=== PATIENT | male | born 1950 | race Caucasian/White ===

== ENCOUNTER 2018-11-25 10:44 | Outpatient (CLI) | payer MEDICARE, OTHER, SELFPAY ==
[2018-11-25 12:52] LABS: HCT 48.4 % (40.0-50.0); HGB 16.5 g/dL (13.5-17.5); Mean Corp. HGB Concentration 34.1 g/dL (32.0-36.0); Mean Corpuscular Hemoglobin 31.5 pg (27.0-33.0); Mean Corpuscular Volume 92.4 fL (80-95); Mean Platelet Volume 13.9 fL (8.0-11.0); RBC 5.24 m/cumm (4.50-6.00); RBC Distribution Width 13.1 % (11.8-14.1); White Blood Cell Count 6.44 k/cumm (4.4-10.8)
[2018-11-25 13:23] LABS: ALT 30 U/L (12-78); AST 18 U/L (15-37); Albumin 3.8 g/dL (3.4-5.0); Alkaline Phosphatase 70 U/L (46-116); Anion Gap 4.9 mmol/L (3-11); BUN 19 mg/dL (7-18); Bilirubin, Total 0.8 mg/dL (0.2-1.0); CO2 32.1 mmol/L (21.0-32.0); CREATININE 1.19 mg/dL (0.70-1.30); Chloride 105 mmol/L (98-107); Cholesterol 168 mg/dL (50-200); Glucose 116 mg/dL (70-100); HDL Cholesterol 40 mg/dL (40-60); LDL CHOLESTEROL 102 mg/dL (<100); Potassium 4.5 mmol/L (3.5-5.1); Sodium 142 mmol/L (136-145); TSH (W/Ref FT4) 1.19 uIU/mL (0.358-3.74); Total Protein 6.7 g/dL (6.4-8.2); Triglyceride 249 mg/dL (30-150)
[2018-11-25 13:25] LABS: Platelet Count 89 x1000/uL (130-400)
[2018-11-26 09:21] LABS: PSA, Screening 2.6 ng/ml (0-4.5)
== END 2018-11-25 11:04 ==
PROVIDERS: PCP Family Medicine; Visit Provider Family Medicine
DX: R00.0 Tachycardia, unspecified (principal); I10 Essential (primary) hypertension; R35.1 Nocturia; N40.0 Benign prostatic hyperplasia without lower urinary tract symptoms; Z12.5 Encounter for screening for malignant neoplasm of prostate
CPT/HCPCS: 36415; 80053; 80061; 83721; 84153; 85027; 84443

== ENCOUNTER 2018-11-28 02:14 | Outpatient (CLI) | payer MEDICARE, OTHER, SELFPAY ==
--- NOTE | 2018-12-02 16:15 | HOLTER_ITS ---
DATE OF DICTATION: December 02, 2018 DATE OF STUDY: December 02, 2018 STUDY INDICATION: Tachycardia REQUESTING PROVIDER: Lorrie Conte M.D. FINDINGS: The patient was monitored for two days. Baseline rhythm sinus rhythm. Average heart rate 74 bpm, range 48 to 113 bpm. Occasional ventricular ectopy, 0.8% PVC's. No VT. Rare supraventricular ectopy, 0.1%. Eleven atrial runs, longest 23 beats, fastest 177 bpm. No pauses greater than 3 seconds. No higher degree heart block. One patient event that did not correlate with arrhythmias. FINAL INTERPRETATION: Occasional ectopy, asymptomatic.
== END 2018-11-28 02:34 ==
PROVIDERS: PCP Family Medicine; Visit Provider Family Medicine
DX: R00.0 Tachycardia, unspecified (principal); I49.3 Ventricular premature depolarization; I49.1 Atrial premature depolarization
CPT/HCPCS: 93225

== ENCOUNTER 2018-12-02 15:34 | Outpatient (CLI) | payer MEDICARE, OTHER, SELFPAY | END 2018-12-02 15:54 | LOC: LBN 12-04 12:40 → LBO 07-09 14:04 | PROVIDERS: PCP Family Medicine; Visit Provider Family Medicine | DX: R00.0 Tachycardia, unspecified (principal); I49.3 Ventricular premature depolarization; I49.1 Atrial premature depolarization | CPT/HCPCS: 93227; 93226 ==

== ENCOUNTER → 2019-01-14 14:18 | Outpatient (BNVA) | payer MEDICARE, OTHER, SELFPAY | PROVIDERS: PCP Family Medicine; Referring Provider Nurse Practitioner Family; Visit Provider Nurse Practitioner Adult Health | DX: G56.02 Carpal tunnel syndrome, left upper limb (principal); I10 Essential (primary) hypertension | CPT/HCPCS: 95908; 99203; 99214 ==

== ENCOUNTER 2019-04-05 10:22 | Emergency (ER) | payer MEDICARE, OTHER, SELFPAY ==
[2019-04-05 10:28] VITALS: BP 145/67; PULSE 87; RESP 16; TEMP 37.1; O2SAT 96
--- NOTE | 2019-04-05 11:05 | ED.GENADUL_ITS ---
Discharge Plan Disposition Patient Disposition: HOME Condition: Stable Discharge Details Chief Complaint: DentalOral Clinical Impression: Esophageal thrush Primary Care Provider: Lorrie Conte ED Provider: [place] Li Home Meds and New Rx's Prescriptions: New clotrimazole 10 mg albaro See Rx Instructions .ROUTE .COMPLEX Qty: 60 RF: 0 No Action tamsulosin 0.4 mg capsule 0.4 mg PO DAILY RF: 0 sildenafil (antihypertensive) 20 mg tablet 20 - 100 mg PO DAILY PRN (Reason: sexual activity) Qty: 30 RF: 5 Discharge Instructions Instructions: Oral Candidiasis (ED) Additional Instructions: Mr. Fisher was seen in the emergency department today and diagnosed with oral thrush which will be treated with Chlortrimazole. While this fungal infection can happen without cause we are always concerned about new cases in the health of your immune system. Please follow-up with your primary doctor for lab work and HIV test and consideration of rheumatologic follow-up. You have a history of uveitis and thrombocytopenia in the past might benefit from a full work-up for an autoimmune process. Please return to the emergency department immediately for inability to eat drink shortness of breath or other worsening of your condition or new concern. Referrals: Lorrie Conte MD, [place] [Primary Care Provider] - Medical Decision Making 68-year-old male with 2 weeks of thrush no history of HIV immunologic diseases or immunosuppressive medications will begin treatment for thrush with clotrimazole troches and have patient follow-up with primary care and rheumatology for HIV testing lab work and further evaluation patient agrees to return for shortness of breath inability to swallow or other concern. HPI 68-year-old male past medical history of distant thrombocytopenia and uveitis presents with 2+ weeks white discharge on tongue mouth sores and pain with swallowing no fever chills no systemic symptoms no previous medical care. Pain is sharp irritating worse with eating and swallowing. Patient denies history of HIV or other immunocompromising condition. No difficulty breathing no chest pain shortness of breath nausea vomiting diarrhea loss of consciousness fever chills or trauma. General Date/Time Provider Initiated Documentation: 04/05/19 10:44 . Related Data Home Medications Medication Instructions Recorded Confirmed tamsulosin 0.4 mg capsule 0.4 mg PO DAILY 11/25/18 04/05/19 sildenafil (antihypertensive) 20 20 - 100 mg PO DAILY PRN #30 tab 03/28/19 04/05/19 mg tablet clotrimazole See Rx Instructions .ROUTE 04/05/19 .COMPLEX #60 tab Previous Rx's Medication Instructions Recorded sildenafil (antihypertensive) 20 20 - 100 mg PO DAILY PRN #30 tab 03/28/19 mg tablet clotrimazole See Rx Instructions .ROUTE 04/05/19 .COMPLEX #60 tab Allergies Allergy/AdvReac Type Severity Reaction Status Date / Time No Known Allergies Allergy Unverified 04/05/19 10:31 General Stated Complaint: DentalOral ZAYDA: 4 Review of Systems Review of Systems All systems reviewed & are unremarkable except as noted in HPI and below PFSH Medical History (Updated 03/28/19 @ 08:34 by Buck Villarreal) Acquired thrombocytopenia Acquired thrombocytopenia (Chronic) Adenomatous polyp of ascending colon (Chronic 10/15/17) BPH associated with nocturia (Chronic) Carpal tunnel syndrome (Resolved) Carpal tunnel syndrome (Inactive) Chest pain (Resolved) Chronic cough (Resolved) Degeneration of cervical intervertebral disc (Resolved) Depressive disorder (Resolved 06/30/14) Diverticulosis (Resolved 10/15/17) Essential hypertension Essential hypertension (Chronic 07/11/13) Generalized osteoarthrosis (Chronic) Hearing loss (Chronic) 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) Juvenile osteochondrosis of hip and pelvis (Resolved) Juvenile osteochondrosis of hip and pelvis (Resolved) Kidney stone (Chronic 01/22/12) Knee pain (Chronic) Lipoma of forearm (Chronic 03/05/14) Low back pain Low back pain, non-specific (Chronic) Whiplash injury to neck (Resolved) Surgical History (Updated 02/27/19 @ 14:35 by Lorrie Conte MD, [place]) Arthroplasty of knee Colonoscopy - MAC (10/15/17) Extraction of cataract H/O arthroscopy of knee (Resolved) H/O cataract removal with insertion of prosthetic lens (Resolved) History of arthroscopy of knee (Resolved) History of cataract removal with insertion of prosthetic lens (Resolved) History of umbilical hernia repair (Resolved) Hx of umbilical hernia repair (Resolved) Open Carpal Tunnel release Repair of umbilical hernia S/P carpal tunnel release (Resolved) S/P tonsillectomy and adenoidectomy (Resolved) Status post carpal tunnel release (Resolved) Status post tonsillectomy and adenoidectomy (Resolved) Tonsillectomy and adenoidectomy Social History Smoking/Tobacco Use Status: Former Tobacco Use Second Hand Exposure: Yes Alcohol Intake: current Alcohol Intake frequency: a few times a month Drug use: Never Substance use type: former substance user Household members: other Details: Brother Housing: house Pets and animals: No Sexually active: No Current gender identity: male What is your relationship status?: How often do you talk on the phone with friends or family?: three or more times per week How often do you get together with friends or relatives?: once per week How often do you attend taoist or jehovah's witness services?: decline to answer Do you belong to any clubs or organized social groups?: no Panel score (0-1 are the most socially isolated patients): 1 What type of physical activity do you participate in: other Duration: > 90 minutes/day Frequency: 5-6 times per week Angela/Uatsdin: Rastafarian Special angela needs: No Do you feel safe at home: Yes Do you feel safe in your relationship?: Yes Exam Narrative Exam Narrative: Pulse oximetry reviewed by me and is normal: Constitutional: in no acute distress. well appearing. oriented to person, place, and time. Eyes: conjunctivae are normal. Pupils are equal, round, and reactive to light. No scleral icterus. extraocular muscles are intact Ears/Nose/Mouth/Throat: muscousal membranes are moist. White exudate on tongue posterior oropharynx consistent with thrush Musculoskeletal: neck is supple. normal range of motion in all extremities. Cardiovascular: Normal rate and rhythm. No lower extremity edema Respiratory: effort is normal. no stridor or respiratory distress. GastrointestinaI: abdomen soft, +BS, nontender, -rebound, -guarding. Neurological: alert and oriented to person, place, and time. normal strength, no tremor. Skin: Skin is warm and dry. not diaphoretic. Distal perfusion intact, warm extremities, cap refill < 2 seconds. Hem/Lymph/Imm: No cervical LAD, no goiter, no conjunctival pallor Psych: normal mood and affect. behavior is normal Triage and nurse notes reviewed. Course Vital Signs Temperature 37.1 C 04/05/19 10:28 Pulse 87 04/05/19 10:28 Respiratory Rate 16 04/05/19 10:28 Blood Pressure 145/67 H 04/05/19 10:28 Pulse Oximetry 96 04/05/19 10:28 Temperature 37.1 C 04/05/19 10:28 Temperature Source Temporal Artery Scan 04/05/19 10:28 Pulse 87 04/05/19 10:28 Respiratory Rate 16 04/05/19 10:28 Respiratory Effort Non-Labored 04/05/19 10:30 Blood Pressure 145/67 H 04/05/19 10:28 Blood Pressure Position Sitting 04/05/19 10:28 Pulse Oximetry 96 04/05/19 10:28 Oxygen Delivery Method Room Air 04/05/19 10:28 Oxygen Flow Rate 0 04/05/19 10:28 Pain Level 2 04/05/19 10:28
== END 2019-04-05 11:10 | disposition home or self-care (01) ==
LOC: ER 11:16
PROVIDERS: Emergency Provider Emergency Medicine; PCP Family Medicine
DX: B37.0 Candidal stomatitis (principal); I10 Essential (primary) hypertension
CPT/HCPCS: 99283

== ENCOUNTER 2019-04-09 08:44 | Outpatient (CLI) | payer MEDICARE, OTHER, SELFPAY ==
[2019-04-09 11:07] LABS: Abs Immature Grans 0.01 k/cumm (0.0-0.09); Absolute Basophil Count 0.09 k/cumm (0.0-0.2); Absolute Eosinophil Count 0.35 k/cumm (0.0-0.7); Absolute Lymphocyte Count 1.79 k/cumm (1.2-3.4); Absolute Monocyte Count 0.77 k/cumm (0.11-0.7); Absolute Neutrophil Count 2.37 k/cumm (1.2-6.7); Basophils % 1.7; Eosinophils % 6.5; HCT 43.6 % (40.0-50.0); Immature Grans % 0.2; Lymphocytes % 33.3; Mean Corp. HGB Concentration 34.4 g/dL (32.0-36.0); Mean Corpuscular Hemoglobin 31.2 pg (27.0-33.0); Mean Corpuscular Volume 90.6 fL (80-95); Mean Platelet Volume 11.6 fL (8.0-11.0); Monocytes % 14.3; Platelet Count 182 x1000/uL (130-400); RBC 4.81 m/cumm (4.50-6.00); RBC Distribution Width 13.6 % (11.8-14.1); White Blood Cell Count 5.38 k/cumm (4.4-10.8)
[2019-04-09 11:22] LABS: ALT 64 U/L (12-78); AST 54 U/L (15-37); Albumin 2.7 g/dL (3.4-5.0); Alkaline Phosphatase 97 U/L (46-116); Anion Gap 7.3 mmol/L (3-11); BUN 12 mg/dL (7-18); Bilirubin, Total 0.8 mg/dL (0.2-1.0); C-Reactive Protein 7.74 mg/dL (0.0-0.3); CO2 28.7 mmol/L (21.0-32.0); CREATININE 1.11 mg/dL (0.70-1.30); Calcium 8.2 mg/dL (8.5-10.1); Chloride 103 mmol/L (98-107); Glucose 93 mg/dL (70-100); Potassium 3.5 mmol/L (3.5-5.1); Sodium 139 mmol/L (136-145); Total Protein 6.6 g/dL (6.4-8.2)
[2019-04-09 11:25] LABS: Hemoglobin A1C 6.1 % (4.5-6.2)
[2019-04-09 11:42] LABS: Anisocytosis 1+; Diff Comment Agrees w/ Instrument; Polychromasia Present
[2019-04-09 11:43] LABS: Poikilocytes 1+
[2019-04-09 12:11] LABS: ESR 55 mm/hr (1-20)
[2019-04-10 11:17] LABS: HIV-1/2 Ag & Ab Screen SEE COMMENTS (NEGAT)
[2019-04-10 14:10] LABS: ANA Interpretation Positive (NEGAT); ANA Titer Pattern 1:320 Speckled
[2019-04-10 16:36] LABS: HIV 1 Ab Diff Positive (NEGAT)
[2019-04-10 16:37] LABS: HIV 2 Ab Diff Indeterminate (NEGAT)
== END 2019-04-09 09:04 ==
PROVIDERS: PCP Family Medicine; Visit Provider Family Medicine
DX: B37.0 Candidal stomatitis (principal); B37.81 Candidal esophagitis; I10 Essential (primary) hypertension; R73.01 Impaired fasting glucose
CPT/HCPCS: 36415; 80053; 85652; 86701; 86702; 87389; 83036; 85025; 86038; 86140

== ENCOUNTER 2019-04-11 20:22 | Outpatient (REF) | payer MEDICARE, OTHER, SELFPAY ==
[2019-04-13 22:53] LABS: Result Negative; Specimen Description Feces
== END 2019-04-11 20:42 ==
LOC: LBN 20:22
PROVIDERS: PCP Family Medicine; Visit Provider Family Medicine
DX: R19.7 Diarrhea, unspecified (principal); R63.4 Abnormal weight loss
CPT/HCPCS: 87329; 87798

== ENCOUNTER 2019-04-14 14:52 | Outpatient (CLI) | payer MEDICARE, OTHER, SELFPAY | END 2019-04-14 15:12 | PROVIDERS: PCP Family Medicine; Visit Provider Family Medicine | DX: B34.9 Viral infection, unspecified (principal); Z11.4 Encounter for screening for human immunodeficiency virus [HIV] | CPT/HCPCS: 36415; 87536 ==

== ENCOUNTER 2019-04-18 13:00 | Outpatient (CLI) | payer MEDICARE, OTHER, SELFPAY ==
--- NOTE | 2019-04-22 16:58 | CCCE_ITS ---
Date of service: 04/22/19 Time of Service: 16:59 Comprehensive [facility] [place] Clinic Note Note: [facility] Acute Visit Name: Jose Fisher : 50 Date: 04/22/2019 Subjective CC/HPI: Mr. Fisher comes in as an acute visit at my prompting after speaking with his daughter Ines today. He told them he is feeling like there is more phlegm and something that is obstructing his swallowing and also his breathing when he lies down. He sat up all night last night. He has continued to have night sweats and some chills as well as fatigue. He is able to walk around without worsening of the feeling of ?breath not going all the way down.? He is still coughing up some sputum that is now clear. The exudate in the moth from the thrush is still present, the mouth pain is better but the throat and esophageal pain remains. He is getting more fluids down but describes that at times he has to hold the fluid in his mouth until it feels like it will go down. Denies choking or other S&S of aspiration. Medications: No change or additions from last Sunday ? see note of encounter done on 04/18/19 ? dated in the chart as 04/21/19. ROS: As above. He also states that 2 doses of Imodium has corrected the diarrhea. It remains soft but formed. He does not have N/V. Objective VS: T- 98.4, P: 114, R: 16, BP: 124/68, WT: 171# Ambulatory with strong, stead gait w no assist, AAOx4, Skin is warm dry w improved turgor from when last seen 04/18. Nasal mucosa is erythematous L>R w/o purulence. Pharynx remains erythematous w some exudate, uvula remains midline. Has an intact gag. Neck is supple with some remaining upper anterior cervical chain shoddy nodes. Lungs have breath sounds heard in all lobes w some crackles at the bases bilaterally. CV: Tachy rate w regular rhythm and normal S1, S2 ? no M, R, G. Abdomen NT, ND. No pedal edema. Assessment/Plan HIV w symptoms of persistent esophageal candidiasis and some orthopnea. CXR this afternoon and start Diflucan 100mg tab. He is approved for VMAP through [place] [facility] and this may not be active until tomorrow so an RX for one tab is faxed to [facility] in [facility] along with another RX for #14 of the Diflucan 100mg tabs to take one a day. Rf x 1 as needed. I will contact him tomorrow for a status check but he knows that if he has difficulty breathing in all positions he should go to the ER. Once it is confirmed tomorrow that the VMAP is in place, [facility] will be contacted with all the information for an RX for Biktarvy 50-200-25mg tabs 1tab po a day, #30 w 5 Rfs to be mailed to him to start at the end of the week. He will see Dr. Parker on 05/05/19 at noon. Loulou Guzmán NP
--- NOTE | 2019-04-23 13:38 | CCCE_ITS ---
Date of service: 04/18/19 Time of Service: 13:00 [facility] Clinic Note Note: [facility] [address], [address] [place] [address] Initial [facility] Visit Information New or Remote Diagnosis of HIV (1-2 hours) Name: Jose Fisher Date of : 1950 [facility] Record #: [id number] Primary Care Provider: Lorrie Conte M.D. Date of Service: 04/18/2019 SUBJECTIVE HPI: Mr. Fisher is here for the initial specialty care visit after having a + HIV 1 fourth generation antibody test and follow up PCR which showed a detectable HIV viral load through his PCP, Lorrie Conte MD, of [facility] in [place], [place]. He states that in mid to the end of January of this year he went on a vacation to [facility] and met a woman who became his first sexual contact in many years. About 2-3 weeks after returning home, he began to feel like he was coming down with a flu. He traveled to [place] after [facility], met this woman again there and was already feeling somewhat ill. He states that while in [place] he had a sore mouth and throat, felt fatigued and started to not eat very much. He contacted his PCP and made an appointment, was seen 04/04/19, diagnosed with thrush and given some Nystatin Lozenges. He had some preliminary blood work ordered and done on 04/09/19. Dr. Conte ordered the PCR on 04/14/19 and met with him and his family yesterday. [facility] was also notified, the DIS team is here to meet with him today and he will also be meeting with [facility] to get VMAP and other services in place DAVID. ROS Constitutional: He has lost 22 pounds in 1 month. He had shaking chills and profuse night sweats a couple weeks ago. They are much better now but he states in the middle of the night he will still get a chill and a sweat. ?Not as bad as before.? He did have anorexia but appetite better now. He remains markedly fatigued. He is sleeping a lot. Sleep only disturbed by sweats. Skin: No rash Head: No headache Eyes: Has long standing chronic uveitis but no changes in vision with this acute illness. He had bilateral cataract surgery many years ago and says his vision is still clear since. Ears, Nose, Throat, Mouth: He still has some mouth soreness and ?stickiness? from the thrush and is on a second round of Nystatin. Teeth: neg Neck: no pain or stiffness Cardiovascular: no palpitations or chest pain Respiratory: did have a cough that is better w/o dyspnea, hemoptysis, and only scant purulence. Gastrointestinal: had some nausea, no vomiting but very frequent watery stools soon after the whole prodromal of this illness started and it has persisted, now less watery. Has not taken anything to slow it down nor has he replaced electrolytes but is trying to drink more fluids. Genitourinary: Describes dark yellow urine but not tea colored. No evidence of hematuria. Has no change in his usual initiation of the stream or bladder emptying. Musculoskeletal: Has bilateral knee pain and stiffness from DJD but nothing new. Had a Cortisone injection in the left knee a few months ago at [facility] in [facility]. He may need total knee replacements in the future but he does not think this will happen soon. Endocrine: neg Lymphatic: has not noticed enlarged or tender nodes Hematologic: no unusual bleeding or bruising Allergic/Immunologic: denies Allergies/Sensitivities: NKDA or environmental allergies Current Medications: Nystatin swish and swallow, Tamsulosin HCL 0.4 mg cap 1 q day Past medications Ineffective: none known VPMS check: No RXs Past Medical History: CHRONIC THROMBOCYTOPENIA (no Tx ? has blood work done regularly and platelets usually 80 ? 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 Highest Grade Completed: [place] and some Community College courses Able to read? yes Empolyed? 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 Has a small supplemental Insurance policy. Issues- No prescription coverage. Substance Abuse History Tobacco: X-Smoker: light smoker for a few years, no exposure for 30+ years ETOH: Weekly Type: Beer Amount: 1 can, maybe 2 Illicit Drug Use: never Family History Mother: at age 83 - Alzheimer?s Father: at age 82 - Liver Cancer Siblings: Brother full [place] service connected health care ? Throat Cancer ? ?He was a heavy smoker but is doing ok now.? Children: Healthy ? 3 daughters Extended: non sig Immunization History: Tetanus (dT/TDAP?) not sure which but had one 4 years ago Hepatitis A Series #1, #2; Hepatitis B Series: #1, #2, #3, Twinrix #1, #2, #3- Not sure Flu Vaccine: gets yearly Pneumovax: #1, #2; Prevnar 13 #1- Thinks he?s had both but not 2nd pneumovax Other: not sure Health Maintenance/ID Screening: CXR: None recently Colonoscopy: Had one 2-3 years ago and told ok for 10 years OBJECTIVE Height: 5?9? Weight: 178# Temp: 98.2 Pulse: 76 Resp: 16 BP: 128/74 General: AINAD, Well nourished Skin: W/D, no rash, turgor fair, no jaundice Head: normocephalic Eyes: non icteric ENT: ears and nose clear, he is hard of hearing and no hearing aids but ok understanding with slightly raised voice. (No need to yell at him) Mouth/Teeth: mild erythema w/o edema but white exudate of tongue and buccal mucosa. Pharynx: uvula midline and erythematous, gag intact, ease of swallowing. Neck: supple CV/Pulses: 2/4 w symmetry x 4 extremities Chest/Lungs: clear in all lobes Abdomen: NABS, ND, NT, no hepatosplenomegaly Extremities: no edema Musculoskeletal: has FROM all joints ? no swelling or hot joints. Neuro: No tremor, gait strong and steady Lymphatic: shoddy anterior cervical nodes that are non-tender, no otherenlarged nodes palpable Psych: Appearance is well groomed, stated age Eye Contact: good Attitude: cooperative Speech: normal Affect: appropriate Mood: euthymic Memory: short-term & long-term intact Motor Activity: normal Orientation & Attention: intact Thought Process: logical Thought Content & Perceptions (self and other): wnl Judgement: intact Insight: excellent Lab results: HIV1 AB +, bands detected gp160, p24, gp41. HIV RNA PCR Quant 94,797 CBCD- H&H 15&43.6, MCV 90.6, Platelets 182, diff normal Glucose 93, Hgb A1C 6.1, LFTs w Albumin 2.7 and slightly elevated AST @ 54, normal ow CRP 7.74, C Difficile negative, Giardia/Crypto none detected. ASSESSMENT/PLAN Mr. Fisher was diagnosed w HIV this week and his contact and symptoms suggest he is in the acute retroviral phase of the illness with improvement of symptoms at this point. He will have further lab work done (see below) at the beginning of next week and will consult with Dr. Parker once these are back as to whether to start ART next week or wait until he is seen in a couple weeks. Will ask Dr. Conte?s office to send over his immunization record. MD visit scheduled: Sunday05/05/[address] Parker Lab Work: CBCD w CD4 immunodeficiency panel, HIV genotypic resistance testing, HLA [id number] Ab; HAV tAb; HBV Ag, sAb, cAb; HCV Ab, RPR (Syphilis Serology); Toxoplasmosis Ab, CMV Ab, Quantiferron, Lipid Panel, GC/Chlamydia (Urine). CMP not repeated now but will need after a month on ART along with a viral load. He is aware of this. Release of records: Signed for [facility], will also get for [facility] and other [facility] of [facility] at [facility] and [facility]. ASO/Social Work referral: Seen today by [facility] and [facility]. Paperwork initiated and will be completed on Sunday. Provider of Care: Loulou Guzmán NP
== END 2019-04-18 13:20 ==
PROVIDERS: PCP Family Medicine; Visit Provider Nurse Practitioner Family
DX: Z21 Asymptomatic human immunodeficiency virus [HIV] infection status (principal); B37.9 Candidiasis, unspecified; A09 Infectious gastroenteritis and colitis, unspecified; R63.4 Abnormal weight loss
CPT/HCPCS: 99205

== ENCOUNTER 2019-04-21 08:43 | Outpatient (CLI) | payer MEDICARE, OTHER, SELFPAY ==
--- NOTE | 2019-04-21 10:08 | W.CCNOTE ---
Date of service: 04/18/19 Time of Service: 14:09 Comprehensive Care Clinic Note Note: [facility] [address], [address] [place] [address] Initial [facility] Visit Information New or Remote Diagnosis of HIV (1-2 hours) Name: Jose Fisher Date of : 1950 [facility] Record #: [id number] Primary care Provider: Lorrie Conte M.D. Date of Service: 04/18/2019 SUBJECTIVE HPI: Mr. Fisher is here for the initial specialty care visit after having a + HIV 1 fourth generation antibody test and follow up PCR which showed a detectable HIV viral load through his PCP, Lorrie Conte MD, of [facility] in [place], [place]. He states that in mid to the end of January of this year he went on a vacation to [place] and met a woman who became his first sexual contact in many years. About 2-3 weeks after returning home, he began to feel like he was coming down with a flu. He traveled to [place] after [place], met this woman again there and was already feeling somewhat ill. He states that while in [place] he had a sore mouth and throat, felt fatigued and started to not eat very much. He contacted his PCP and made an appointment, was seen 04/04/19, diagnosed with thrush and given some Nystatin Lozenges. He had some preliminary blood work ordered and done on 04/09/19. Dr. Conte ordered the PCR on 04/14/19 and met with him and his family yesterday. [facility] was also notified, the DIS team is here to meet with him today and he will also be meeting with [facility] to get VMAP and other services in place [place]. ROS Constitutional: He has lost 22 pounds in 1 month. He had shaking chills and profuse night sweats a couple weeks ago. They are much better now but he states in the middle of the night he will still get a chill and a sweat. ?Not as bad as before.? He did have anorexia but appetite better now. He remains markedly fatigued. He is sleeping a lot. Sleep only disturbed by sweats. Skin: No rash Head: No headache Eyes: Has long standing chronic uveitis but no changes in vision with this acute illness. He had bilateral cataract surgery many years ago and says his vision is still clear since. Ears, Nose, Throat, Mouth: He still has some mouth soreness and ?stickiness? from the thrush and is on a second round of Nystatin. Teeth: neg Neck: no pain or stiffness Cardiovascular: no palpitations or chest pain Respiratory: did have a cough that is better w/o dyspnea, hemoptysis, and only scant purulence. Gastrointestinal: had some nausea, no vomiting but very frequent watery stools soon after the whole prodromal of this illness started and it has persisted, now less watery. Has not taken anything to slow it down nor has he replaced electrolytes but is trying to drink more fluids. Genitourinary: Describes dark yellow urine but not tea colored. No evidence of hematuria. Has no change in his usual initiation of the stream or bladder emptying. Musculoskeletal: Has bilateral knee pain and stiffness from DJD but nothing new. Had a Cortisone injection in the left knee a few months ago at [facility] in [facility]. He may need total knee replacements in the future but he does not think this will happen soon. Endocrine: neg Lymphatic: has not noticed enlarged or tender nodes Hematologic: no unusual bleeding or bruising Allergic/Immunologic: denies Allergies/Sensitivities: NKDA or environmental allergies Current Medications: Nystatin swish and swallow, Tamsulosin HCL 0.4 mg cap 1 q day Past medications Ineffective: none known VPMS check: No RXs Past Medical History: CHRONIC THROMBOCYTOPENIA (no Tx ? has blood work done regularly and platelets usually 80 ? 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 Highest Grade Completed: [place] and some Community College courses Able to read? yes Empolyed? 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 Has a small supplemental Insurance policy. Issues- No prescription coverage. Substance Abuse History Tobacco: X-Smoker: light smoker for a few years, no exposure for 30+ years ETOH: Weekly Type: Beer Amount: 1 can, maybe 2 Illicit Drug Use: never Family History Mother: at age 83 - Alzheimer?s Father: at age 82 - Liver Cancer Siblings: Brother full [place] service connected health care ? Throat Cancer ? ?He was a heavy smoker but is doing ok now.? Children: Healthy ? 3 daughters Extended: non sig Immunization History: Tetanus (dT/TDAP?) not sure which but had one 4 years ago Hepatitis A Series #1, #2; Hepatitis B Series: #1, #2, #3, Twinrix #1, #2, #3- Not sure Flu Vaccine: gets yearly Pneumovax: #1, #2; Prevnar 13 #1- Thinks he?s had both but not 2nd pneumovax Other: not sure Health Maintenance/ID Screening: CXR: None recently Colonoscopy: Had one 2-3 years ago and told ok for 10 years OBJECTIVE Height: 5?9? Weight: 178# Temp: 98.2 Pulse: 76 Resp: 16 BP: 128/74 General: AINAD, Well nourished Skin: W/D, no rash, turgor fair, no jaundice Head: normocephalic Eyes: non icteric ENT: ears and nose clear, he is hard of hearing and no hearing aids but ok understanding with slightly raised voice. (No need to yell at him) Mouth/Teeth: mild erythema w/o edema but white exudate of tongue and buccal mucosa. Pharynx: uvula midline and erythematous, gag intact, ease of swallowing. Neck: supple CV/Pulses: 2/4 w symmetry x 4 extremities Chest/Lungs: clear in all lobes Abdomen: NABS, ND, NT, no hepatosplenomegaly Extremities: no edema Musculoskeletal: has FROM all joints ? no swelling or hot joints. Neuro: No tremor, gait strong and steady Lymphatic: shoddy anterior cervical nodes that are non-tender, no otherenlarged nodes palpable Psych: Appearance is well groomed, stated age Eye Contact: good Attitude: cooperative Speech: normal Affect: appropriate Mood: euthymic Memory: short-term & long-term intact Motor Activity: normal Orientation & Attention: intact Thought Process: logical Thought Content & Perceptions (self and other): wnl Judgement: intact Insight: excellent Lab results: HIV1 AB +, bands detected gp160, p24, gp41. HIV RNA PCR Quant 94,797 CBCD- H&H 15&43.6, MCV 90.6, Platelets 182, diff normal Glucose 93, Hgb A1C 6.1, LFTs w Albumin 2.7 and slightly elevated AST @ 54, normal ow CRP 7.74, C Difficile negative, Giardia/Crypto none detected. ASSESSMENT/PLAN Mr. Fisher was diagnosed w HIV this week and his contact and symptoms suggest he is in the acute retroviral phase of the illness with improvement of symptoms at this point. He will have further lab work done (see below) at the beginning of next week and will consult with Dr. Parker once these are back as to whether to start ART next week or wait until he is seen in a couple weeks. Will ask Dr. Conte?s office to send over his immunization record. MD visit scheduled: Sunday05/05/[address] Parker Lab Work: CBCD w CD4 immunodeficiency panel, HIV genotypic resistance testing, HLA [id number] Ab; HAV tAb; HBV Ag, sAb, cAb; HCV Ab, RPR (Syphilis Serology); Toxoplasmosis Ab, CMV Ab, Quantiferron, Lipid Panel, GC/Chlamydia (Urine). CMP not repeated now but will need after a month on ART along with a viral load. He is aware of this. Release of records: Signed for [place] [facility], will also get for [facility] and [facility] at [facility] and [facility]. ASO/Social Work referral: Seen today by [facility] and [place] [facility]. Paperwork initiated and will be completed on Sunday. Provider of Care: Loulou Guzmán NP
[2019-04-21 11:18] LABS: Calculated LDL 76 mg/dL; Cholesterol 131 mg/dL (50-200); HDL Cholesterol 29 mg/dL (40-60); Triglyceride 133 mg/dL (30-150)
[2019-04-22 10:49] LABS: Syphilis Serology (RPR) Negative (Negative)
[2019-04-22 13:54] LABS: CMV Ab, IgM Negative (Negative); Toxoplasma Ab, IgG Negative (Negative); Toxoplasma Ab, IgM Negative (Negative); Toxoplasma IgG Value <3 IU/mL
[2019-04-22 14:09] LABS: Chlamydia Result Negative; GC Result Negative; Specimen Description URINE
[2019-04-23 15:20] LABS: Hepatitis C Ab w Rflx HCV PCR Negative (NEGAT)
[2019-04-24 08:23] LABS: Hepatitis B Surface Ag Negative (NEGAT)
[2019-04-24 08:27] LABS: HBs Antibody, Quant <3.1 mIU/mL; Hep A Total Ab w Rflx IgM Positive (NEGAT); Hep B Core Antibody Negative (NEGAT); Hepatitis B Surface Ab Negative
[2019-04-24 23:30] LABS: Emitricitabine SUSC; HIV-1 Genotypic PR-RT Drug Res INTERP; Lopinavir and Ritonavir SUSC; Tipranavir andRitonavir SUSC
[2019-04-29 08:55] LABS: Hep A Antibody IgM Negative (NEGAT)
[2019-04-29 09:12] LABS: HLA-B 5701 Interpretation See Comments
[2019-04-29 09:22] LABS: HLA-B 5701 Reviewed By See Comments
[2019-04-29 09:23] LABS: HLA-B 5701 Result See Comments
== END 2019-04-21 09:03 ==
PROVIDERS: PCP Family Medicine; Visit Provider Nurse Practitioner Family
DX: B20 Human immunodeficiency virus [HIV] disease (principal); Z11.3 Encounter for screening for infections with a predominantly sexual mode of transmission; Z01.84 Encounter for antibody response examination; E78.89 Other lipoprotein metabolism disorders
CPT/HCPCS: 36415; 80061; 81381; 83721; 86704; 86706; 86709; 86803; 87340; 87491; 87591; 86359; 86360; 86592; 86644; 86645; 86777; 86778; 87901

== ENCOUNTER 2019-04-22 15:36 | Outpatient (CLI) | payer MEDICARE, OTHER, SELFPAY | END 2019-04-22 15:56 | PROVIDERS: PCP Family Medicine; Visit Provider Nurse Practitioner Family | DX: Z21 Asymptomatic human immunodeficiency virus [HIV] infection status (principal); R06.00 Dyspnea, unspecified; B37.9 Candidiasis, unspecified; R63.4 Abnormal weight loss | CPT/HCPCS: 99213 ==

== ENCOUNTER 2019-04-22 16:26 | Outpatient (CLI) | payer MEDICARE, OTHER, SELFPAY ==
--- NOTE | 2019-04-22 16:17 | DI.RAD_ITS ---
SYMPTOM/DIAGNOSIS: FEVER, CHILLS, NIGHT SWEATS, WT LOSS PA AND LATERAL CHEST: Comparison is made with 06/20/16. The lungs are not well inflated on either view. There is bibasilar atelectasis. The heart size is normal. The upper lungs appear clear, IMPRESSION: Bibasilar atelectasis.
== END 2019-04-22 16:46 ==
PROVIDERS: PCP Family Medicine; Visit Provider Nurse Practitioner Family
DX: R50.9 Fever, unspecified (principal); R61 Generalized hyperhidrosis; R63.4 Abnormal weight loss; J98.11 Atelectasis
CPT/HCPCS: 71046

== ENCOUNTER 2019-04-23 01:23 | Outpatient (CLI) | payer MEDICARE, OTHER, SELFPAY ==
[2019-04-23 09:51] LABS: Abs Immature Grans 0.02 k/cumm (0.0-0.09); HCT 44.6 % (40.0-50.0); HGB 15.1 g/dL (13.5-17.5); Mean Corp. HGB Concentration 33.9 g/dL (32.0-36.0); Mean Corpuscular Hemoglobin 30.3 pg (27.0-33.0); Mean Corpuscular Volume 89.6 fL (80-95); Mean Platelet Volume 10.6 fL (8.0-11.0); RBC 4.98 m/cumm (4.50-6.00); RBC Distribution Width 13.5 % (11.8-14.1); White Blood Cell Count 6.51 k/cumm (4.4-10.8)
[2019-04-23 10:53] LABS: Absolute Basophil Count 0.07 k/cumm (0.0-0.2); Absolute Eosinophil Count 0.13 k/cumm (0.0-0.7); Absolute Lymphocyte Count 3.32 k/cumm (1.2-3.4); Absolute Monocyte Count 0.26 k/cumm (0.11-0.7); Absolute Neutrophil Count 2.73 k/cumm (1.2-6.7); Atypical Lymphocytes % 10
[2019-04-23 10:54] LABS: Diff Comment Manual Differential; Polychromasia Present
[2019-04-23 10:55] LABS: Platelet Count 211 x1000/uL (130-400)
[2019-04-24 11:43] LABS: CD3 67 % (62-87); CD4 16 % (35-63); CD8 49 % (10-35)
[2019-04-25 14:34] LABS: TB Interpretation Negative (NEGAT); TB1 Ag minus Nil 0.06 IU/mL; TB2 Ag minus Nil 0.02 IU/mL
== END 2019-04-23 01:43 ==
PROVIDERS: PCP Family Medicine; Visit Provider Nurse Practitioner Family
DX: B20 Human immunodeficiency virus [HIV] disease (principal)
CPT/HCPCS: 85025; 86359; 86360; 86480

== ENCOUNTER 2019-04-25 11:16 | Outpatient (CLI) | payer MEDICARE, OTHER, SELFPAY ==
--- NOTE | 2019-04-25 11:40 | CCCE_ITS ---
Date of service: 04/25/19 Time of Service: 11:41 [facility] Clinic Note Note: [facility] Acute Visit Name: Jose Fisher : 1950 Date: 04/25/2019 Subjective CC: ?I feel better. I was able to lie down yesterday.? He has been taking Diflucan 100mg daily x 3 days so far and will take for at least 2 weeks. He states that he is swallowing better and having yogurt in the Am but this morning was able to eat dry cereal w milk and yesterday ate 2 hot dogs w mustard and relish without mouth burning. He hopes to eat a steak this weekend. He has been eating some vegetables and will be getting eggs. Medications: Diflucan 100mg a day, Flomax 4mg a day ROS: Night sweats persist but are better that earlier in the week. Has more energy and feels he has not lost more weight. No Has, mouth pain and swallowing improved. No N/V and the diarrhea has resolved w/o needing further anti diarrhea medication. No rashes or bleeding. No swelling Objective VS: 37.5, 105, 16, 128/70 PE: Sclera non icteric, nasal mucosa w mild erythema, mouth & pharynx w less erythema and swelling, uvula remains midline, tongue remains w white exudate. Neck supple w less upper anterior c node palpable. Lungs w less crackles at the bases. CV: RRR still a bit tachy, no M, C, R, G. No rash, turgor good. No swelling. Lab results available today drawn on Sunday show a CD4 count of 529, CD4 % 16, WBC 6.51, Diff N:40.0, L: 41.0, M: 4.0, E:2.0. CXR: Atelectasis at bases otherwise all clear. Assessment/Plan Acute HIV w improving symptoms and no further weight loss. Continue the Diflucan 100mg a day and start Biktarvy 1 a day now that VMAP is in place and the prescription is to be filled at [facility] mail order pharmacy. Advance diet and activity as tolerated. Keep appointment w Dr. Parker here at [facility] on Sunday05/05/19. Call for worsening symptoms. Loulou Guzmán NP
== END 2019-04-25 11:36 ==
PROVIDERS: PCP Family Medicine; Visit Provider Nurse Practitioner Family
DX: Z21 Asymptomatic human immunodeficiency virus [HIV] infection status; B37.9 Candidiasis, unspecified; R63.4 Abnormal weight loss
CPT/HCPCS: 99213

== ENCOUNTER 2019-05-05 08:00 | Outpatient (CLI) | payer MEDICARE, OTHER, SELFPAY | END 2019-05-05 08:20 | PROVIDERS: PCP Family Medicine; Referring Provider Nurse Practitioner Family; Visit Provider Internal Medicine Infectious Disease | DX: Z21 Asymptomatic human immunodeficiency virus [HIV] infection status (principal); Z79.899 Other long term (current) drug therapy; B37.9 Candidiasis, unspecified; R63.4 Abnormal weight loss | CPT/HCPCS: 99215 ==

== ENCOUNTER 2019-05-08 01:09 | Outpatient (CLI) | payer MEDICARE, OTHER, SELFPAY ==
--- NOTE | 2019-05-08 08:28 | DI.US_ITS ---
SYMPTOM/DIAGNOSIS: ABD PAIN, NEW HIV DIAGNOSIS R68.81, EARLY SATIETY ABDOMINAL ULTRASOUND: Routine examination. Comparison CT scan is 10/26/11 The proximal aorta was obscured by overlying bowel. The mid and distal aorta are of normal caliber. The visualized portion of the inferior vena cava is unremarkable. The liver is normal in size measuring 14.3 cm. No hepatic mass is seen. The gallbladder is negative. No stones, sludge or gallbladder wall thickening is present. The common duct is within normal limits at 05 cm. The pancreas is obscured by overlying bowel. The kidneys and spleen are unremarkable. IMPRESSION: Negative abdominal ultrasound.
--- NOTE | 2019-05-08 12:30 | MERGE_ITS ---
*[facility]* *[facility]* [address] [place] [address] Date of study: 05/08/2019 Transthoracic Echocardiography M-mode, complete 2D, complete spectral Doppler, and color Doppler *STUDY CONCLUSIONS* Summary: 1. Left ventricle: The cavity size was normal. Wall thickness was at the upper limits of normal. Systolic function was normal. The estimated ejection fraction was 55-60%. Wall motion was normal; there were no regional wall motion abnormalities. 2. Right ventricle: The cavity size was normal. Systolic function was normal. 3. Aortic valve: Trileaflet; mildly thickened leaflets. There was moderate to severe regurgitation directed eccentrically in the LVOT and towards the mitral anterior leaflet. 4. Mitral valve: There was mild to moderate regurgitation. 5. Pulmonary arteries: Pulmonary systolic pressure was increased, >= 45mm Hg. 6. Inferior vena cava: The vessel was patent and normal in size. The respirophasic diameter changes were blunted (less than 50%). *PATIENT PRESENTATION* Height: 167.6cm (66in ) S/D Pressure: 139 / 64 Weight: 75.3kg (165.7lb ) BSA: 1.89m^2 Test start time: 12:40 PM. Test stop time: 01:45 PM. CONSULTING Lorrie Conte ORDERING Lorrie Conte REFERRING Lorrie Conte PERFORMING Unknown PERFORMING [facility] C[employer]ING Seda Cee, (R)(PRINCE), MALINA *PROCEDURE DATA* Procedure information: This study was interpreted by [facility]. Pertinent images and digital data are archived for permanent storage and are available for subsequent review. Comparison was made to the study of 08/14/2017. Study status: Routine. Transthoracic echocardiography. M-mode, complete 2D, complete spectral Doppler, and color Doppler. A Transthoracic Echocardiogram was performed. Scanning was performed from the parasternal, apical, subcostal, and suprasternal notch acoustic windows. Images were obtained using an [id number] cardiac ultrasound machine. Image quality was adequate. Study completion: The patient tolerated the procedure well. There were no complications. History: PMH: Dypnea. R06.00 new. Dx HIV b20. *CARDIAC ANATOMY* Left ventricle: The cavity size was normal. Wall thickness was at the upper limits of normal. Systolic function was normal. The estimated ejection fraction was 55-60%. Wall motion was normal; there were no regional wall motion abnormalities. Findings consistent with diastolic dysfunction. There was no evidence of elevated ventricular filling pressure by Doppler parameters. Aortic valve: Trileaflet; mildly thickened leaflets. Mobility was not restricted. Doppler: Transvalvular velocity was within the normal range. There was no stenosis. There was moderate to severe regurgitation directed eccentrically in the LVOT and towards the mitral anterior leaflet. VTI ratio of LVOT to aortic valve: 0.62. Valve area (VTI): 1.9cm^2. Indexed valve area (VTI): 1cm^2/m^2. Peak velocity ratio of LVOT to aortic valve: 0.64. Valve area (Vmax): 2cm^2. Indexed valve area (Vmax): 1cm^2/m^2. Mean velocity ratio of LVOT to aortic valve: 0.59. Valve area (Vmean): 1.8cm^2. Indexed valve area (Vmean): 1cm^2/m^2. Mean gradient (S): 4.8mm Hg. Peak gradient (S): 8.6mm Hg. Aorta: Aortic root: The aortic root was normal in size. Ascending aorta: The ascending aorta was normal in size. Mitral valve: Mildly thickened leaflets (josafat anterior mitral leaflet tip). Mobility was not restricted. Doppler: Transvalvular velocity was within the normal range. There was no evidence for stenosis. There was mild to moderate regurgitation. Valve area by pressure half-time: 3.7cm^2. Indexed valve area by pressure half-time: 1.9cm^2/m^2. Peak gradient (D): 2.2mm Hg. Left atrium: The atrium was normal in size. Right ventricle: The cavity size was normal. Systolic function was normal. Pulmonic valve: The pulmonary valve appears to be grossly normal. Doppler: Transvalvular velocity was within the normal range. There was no evidence for stenosis. There was trivial regurgitation. Tricuspid valve: Structurally normal valve. Doppler: Transvalvular velocity was within the normal range. There was no evidence for stenosis. There was trivial regurgitation. Pulmonary artery: Poorly visualized. Pulmonary systolic pressure was increased, >= 45mm Hg. Right atrium: The atrium was normal in size. Pericardium: There was no pericardial effusion. Systemic veins: Inferior vena cava: Well visualized. The vessel was patent and normal in size. The respirophasic diameter changes were blunted (less than 50%). Baseline ECG: Normal sinus rhythm. Measurements Left ventricle Value 08/14/2017 Reference LV ID, ED, PLAX 4.5 cm 4.9 3.5 - 6.0 LV ID, ES, PLAX 3.3 cm 3.3 2.1 - 4.0 LV PW thickness, ED, PLAX 1.0 cm 0.9 LV end-diastolic volume, 115 ml 73 1-p A2C LV ejection fraction, 1-p 62 % 55 A2C LV end-diastolic volume, 105 ml 104 1-p A4C LV ejection fraction, 1-p 49 % 46 A4C LV e', lateral 0.085 m/sec LV E/e', lateral 9 LV e', medial 0.045 m/sec LV E/e', medial 17 LV e', average 0.065 m/sec LV E/e', average 11 Ventricular septum Value 08/14/2017 Reference IVS thickness, ED, PLAX 1.0 cm 1.1 LVOT Value 08/14/2017 Reference LVOT ID, A-P 2.0 cm 2.0 LVOT area 3.1 cm^2 3 LVOT peak velocity, S 0.93 m/sec 1.19 LVOT mean velocity, S 0.62 m/sec LVOT VTI, S 18.0 cm 24.3 LVOT peak gradient, S 3.5 mm Hg 5.7 LVOT mean gradient, S 1.7 mm Hg 2.2 Stroke volume (SV), LVOT 55 ml DP Stroke index (SV/bsa), 29 ml/m^2 LVOT DP Aortic valve Value 08/14/2017 Reference Aortic valve peak 1.5 m/sec 1.4 velocity, S Aortic valve mean 1 m/sec 0 velocity, S Aortic valve VTI, S 29.0 cm Aortic mean gradient, S 4.8 mm Hg 3.5 Aortic peak gradient, S 8.6 mm Hg 8 VTI ratio, LVOT/AV 0.62 Aortic valve area, VTI 1.9 cm^2 2.9 Velocity ratio, peak, 0.64 0.85 LVOT/AV Aortic valve area, peak 2 cm^2 2.6 velocity Velocity ratio, mean, 0.59 LVOT/AV Aortic valve area, mean 1.8 cm^2 velocity Aortic valve area/bsa, 1 cm^2/m^2 mean velocity Aorta Value 08/14/2017 Reference Aortic root ID, ED 3.6 cm 3.6 Ascending aorta ID, A-P, S 3.0 cm 2.9 Left atrium Value 08/14/2017 Reference LA ID, A-P, ES 4.0 cm LA ID/bsa, A-P 2.1 cm/m^2 <=2.2 LA volume, ES, 2-p 43 ml LA volume/bsa, ES, 2-p 23 ml/m^2 LA/aortic root ratio 1.11 1.01 Mitral valve Value 08/14/2017 Reference Mitral E-wave peak 0.74 m/sec 0.75 velocity Mitral A-wave peak 1.07 m/sec 0.99 velocity Mitral deceleration time 208 ms 339 150 - 230 Mitral pressure half-time 60 ms 98 Mitral peak gradient, D 2.2 mm Hg 2.2 Mitral E/A ratio, peak 0.69 0.76 Mitral valve area, PHT, DP 3.7 cm^2 2.2 Pulmonary veins Value 08/14/2017 Reference Pulmonary vein peak 0.7 m/sec 0.52 velocity, S Pulmonary vein peak 0.31 m/sec 0.35 velocity, D Pulmonary vein velocity 2.25 1.47 ratio, peak, S/D Tricuspid valve Value 08/14/2017 Reference Tricuspid regurg peak 3.1 m/sec 2.7 velocity Tricuspid peak RV-RA 37.9 mm Hg 28.1 gradient Right atrium Value 08/14/2017 Reference RA area, ES, A4C 10.6 cm^2 13.9 8.3 - 19.5 Legend: (L) and (H) kye values outside specified reference range. I have personally reviewed the images and have reviewed and edited the reported findings. Electronically signed by Yohan Batista 05/08/2019 15:04
== END 2019-05-08 01:29 ==
PROVIDERS: PCP Family Medicine; Visit Provider Family Medicine
DX: R68.81 Early satiety (principal); B20 Human immunodeficiency virus [HIV] disease; I35.1 Nonrheumatic aortic (valve) insufficiency; R06.09 Other forms of dyspnea; I34.0 Nonrheumatic mitral (valve) insufficiency; R10.9 Unspecified abdominal pain
CPT/HCPCS: 93306; 76700

== ENCOUNTER 2019-05-28 13:03 | Outpatient (REF) | payer MEDICARE, OTHER, SELFPAY ==
[2019-05-28 15:26] LABS: HCT 36.3 % (40.0-50.0); HGB 11.8 g/dL (13.5-17.5); Mean Corp. HGB Concentration 32.5 g/dL (32.0-36.0); Mean Corpuscular Hemoglobin 31.5 pg (27.0-33.0); Mean Corpuscular Volume 96.8 fL (80-95); Mean Platelet Volume 10.8 fL (8.0-11.0); Platelet Count 225 x1000/uL (130-400); RBC 3.75 m/cumm (4.50-6.00); RBC Distribution Width 15.4 % (11.8-14.1); White Blood Cell Count 7.39 k/cumm (4.4-10.8)
[2019-05-28 15:32] LABS: Iron 54 ug/dL (50-175)
[2019-05-28 15:40] LABS: ALT 38 U/L (16-63); AST 34 U/L (15-37); Albumin 2.8 g/dL (3.4-5.0); Alkaline Phosphatase 60 U/L (46-116); Anion Gap 6.3 mmol/L (3-11); BUN 21 mg/dL (7-18); Bilirubin, Total 0.8 mg/dL (0.2-1.0); CO2 33.7 mmol/L (21.0-32.0); CREATININE 1.08 mg/dL (0.70-1.30); Calcium 8.7 mg/dL (8.5-10.1); Chloride 103 mmol/L (98-107); Glucose 97 mg/dL (70-100); NT-proBNP 1693 pg/mL; Potassium 4.5 mmol/L (3.5-5.1); Sodium 143 mmol/L (136-145); Total Protein 6.4 g/dL (6.4-8.2)
== END 2019-05-28 13:23 ==
LOC: LBN 13:03
PROVIDERS: PCP Family Medicine; Visit Provider Family Medicine
DX: I50.9 Heart failure, unspecified (principal); J91.8 Pleural effusion in other conditions classified elsewhere; B20 Human immunodeficiency virus [HIV] disease
CPT/HCPCS: 80053; 85027; 83540; 83735; 83880

== ENCOUNTER 2019-05-30 10:06 | Outpatient (CLI) | payer MEDICARE, OTHER, SELFPAY ==
--- NOTE | 2019-05-30 13:00 | DI.CT_ITS ---
SYMPTOM/DIAGNOSIS: HYPOXIA, S/P CABG AND VALVE REPLACEMENT, R09.02, ? PE PE CHEST CT: CT angiography was performed with multi slice acquisition and multi planar and 3D reconstruction. The patient is status post aortic valve replacement and CABG. There is some residual post surgical air in the anterior mediastinum. There is a trace amount of pleural fluid. There are small bilateral pleural effusions. There is increased density at both lung bases, left greater than right, likely representing atelectasis. Pneumonia cannot be entirely excluded. There is no evidence of pulmonary emboli or aortic dissection. There is left atrial and left ventricular enlargement. There is no evidence of pulmonary edema or significant emphysematous changes. IMPRESSION: No evidence of pulmonary emboli. Bibasilar atelectasis, left greater than right. Small bilateral pleural effusions.
[2019-05-30] MEDS: Omnipaque 350 MG/ML 100 ML BTL IJ (13:41)
== END 2019-05-30 10:26 ==
PROVIDERS: PCP Family Medicine; Visit Provider Family Medicine
DX: R09.02 Hypoxemia (principal); J91.8 Pleural effusion in other conditions classified elsewhere; J98.11 Atelectasis; Z95.1 Presence of aortocoronary bypass graft
CPT/HCPCS: 71275; J3490

== ENCOUNTER 2019-05-30 14:59 | Outpatient (CLI) | payer MEDICARE, OTHER, SELFPAY ==
[2019-05-30 15:28] LABS: BE 7.6 mmol/L (-3-3); HCO3 31 mmol/L (22-28); pCO2 42 mmHg (34-47); pH 7.48 (7.35-7.45); pO2 64 mmHg (83-108); sO2 94 % (94-98); tCO2 30 mmol/L (22-29)
[2019-05-30 15:29] LABS: Site Left Radial
[2019-05-30] MEDS: Inhaler, Assist Device 1 EACH MC (17:38)
[2019-05-30] MEDS: Albuterol HFA 18 GM 200 PUFF INH IH (17:39)
--- NOTE | 2019-06-02 14:50 | PFT_ITS ---
PULMONARY FUNCTION TEST REPORT DATE OF SERVICE: May 30, 2019 REQUESTING PROVIDER: Lorrie Conte M.D. Spirometry shows no evidence of obstructive airways disease, no bronchodilator response. Respiratory neuromuscular function testing shows extremely low MEP and MIP with somewhat low MVV. Lung volumes show moderate restriction. Diffusion capacity moderately reduced, which is normal when corrected to alveolar volume. Airways resistance normal. IMPRESSION: Moderately severe restrictive lung disease. This is associated with very severe respiratory neuromuscular weakness. The restrictive pattern is likely related to the respiratory neuromuscular weakness, though underlying restrictive lung disease should be further evaluated. Further thorough evaluation for respiratory neuromuscular weakness should be conducted. Clinical correlation recommended. When this study was compared to previous one from 03/06/13, the patient has a total of 1980 cc's decline in FVC. FEV1 has declined by 1680 cc's. JesicaJ/simonel D/
== END 2019-05-30 15:19 ==
PROVIDERS: PCP Family Medicine; Visit Provider Family Medicine
DX: R06.09 Other forms of dyspnea (principal); Z95.1 Presence of aortocoronary bypass graft; Z87.891 Personal history of nicotine dependence
CPT/HCPCS: 82805; 94060; 94150; 94200; 94726; 94729; 36600; 94762

== ENCOUNTER → 2019-06-03 00:57 | Outpatient (CLI) | payer MEDICARE, OTHER, SELFPAY ==
--- NOTE | 2019-06-03 07:24 | MERGE_ITS ---
*[facility]* *[facility]* [address] [place] [address] Date of study: 06/03/2019 Transthoracic Echocardiography M-mode, complete 2D, complete spectral Doppler, and color Doppler *STUDY CONCLUSIONS* Impressions: Excellent prosthetic valve function without evidence for perivalvular leak. Other valves unchanged. Summary: 1. Left ventricle: The cavity size was normal. Wall thickness was at the upper limits of normal. Systolic function was at the lower limits of normal. The estimated ejection fraction was 50-55%. Wall motion was normal; there were no regional wall motion abnormalities. Findings consistent with diastolic dysfunction. Doppler parameters are consistent with high ventricular filling pressure. 2. Ventricular septum: Septal motion showed paradoxical motion. 3. Aortic valve: A bioprosthesis was present and functioning normally. Peak velocity (S): 2.8m/sec. Mean gradient (S): 15.2mm Hg. 4. Mitral valve: Mildly thickened, mildly calcified leaflets anterior. There was mild regurgitation. 5. Right ventricle: The cavity size was normal. Wall thickness was normal. Systolic function was normal. 6. Pulmonary arteries: Pulmonary systolic pressure was increased, in the range of 40mm Hg to 50mm Hg. *PATIENT PRESENTATION* Height: 167.6cm (66in ) S/D Pressure: 104 / 64 Weight: 74.4kg (163.7lb ) BSA: 1.88m^2 Test start time: 07:40 AM. Test stop time: 08:40 AM. CONSULTING Lorrie Conte ORDERING Lorrie Conte REFERRING Lorrie Conte PERFORMING Unknown PERFORMING [facility] CASTING TECHNICIAN Seda Hoppe, RT KeenanR)(CT), [facility] *PROCEDURE DATA* Procedure information: The patient was identified by two identifiers. This study was interpreted by [facility]. Pertinent images and digital data are archived for permanent storage and are available for subsequent review. Comparison was made to the study of 05/08/2019. Study status: Routine. Transthoracic echocardiography. M-mode, complete 2D, complete spectral Doppler, and color Doppler. A Transthoracic Echocardiogram was performed. Scanning was performed from the parasternal, apical, subcostal, and suprasternal notch acoustic windows. Images were obtained using an [id number] cardiac ultrasound machine. Image quality was adequate. Study completion: The patient tolerated the procedure well. There were no complications. History: PMH: SOB HTN i10. S/p 2x bypass avr 2 week ago. *CARDIAC ANATOMY* Left ventricle: The cavity size was normal. Wall thickness was at the upper limits of normal. Systolic function was at the lower limits of normal. The estimated ejection fraction was 50-55%. Wall motion was normal; there were no regional wall motion abnormalities. Findings consistent with diastolic dysfunction. Doppler parameters are consistent with high ventricular filling pressure. Aortic valve: A bioprosthesis was present and functioning normally. Mobility was not restricted. Doppler: Transvalvular velocity was within the normal range. There was no stenosis. There was no significant regurgitation. VTI ratio of LVOT to aortic valve: 0.41. Valve area (VTI): 1.3cm^2. Indexed valve area (VTI): 0.7cm^2/m^2. Peak velocity ratio of LVOT to aortic valve: 0.42. Valve area (Vmax): 1.4cm^2. Indexed valve area (Vmax): 0.7cm^2/m^2. Mean velocity ratio of LVOT to aortic valve: 0.51. Valve area (Vmean): 1.6cm^2. Indexed valve area (Vmean): 0.9cm^2/m^2. Mean gradient (S): 15.2mm Hg. Peak gradient (S): 31.4mm Hg. Aorta: Aortic root: The aortic root was normal in size. Ascending aorta: The ascending aorta was normal in size. Mitral valve: Mildly thickened, mildly calcified leaflets anterior. Mobility was not restricted. Doppler: Transvalvular velocity was within the normal range. There was no evidence for stenosis. There was mild regurgitation. Valve area by pressure half-time: 3.7cm^2. Indexed valve area by pressure half-time: 1.9cm^2/m^2. Peak gradient (D): 2.7mm Hg. Left atrium: The atrium was normal in size. Right ventricle: The cavity size was normal. Wall thickness was normal. Systolic function was normal. Ventricular septum: Septal motion showed paradoxical motion. Pulmonic valve: Doppler: Transvalvular velocity was within the normal range. There was no evidence for stenosis. There was no significant regurgitation. Tricuspid valve: Structurally normal valve. Doppler: Transvalvular velocity was within the normal range. There was no evidence for stenosis. There was mild regurgitation. Pulmonary artery: Pulmonary systolic pressure was increased, in the range of 40mm Hg to 50mm Hg. Right atrium: The atrium was normal in size. Pericardium: There was no pericardial effusion. Systemic veins: Inferior vena cava: Well visualized. The vessel was patent and normal in size. Respirophasic changes in dimension were absent. Measurements Left ventricle Value 05/08/2019 Reference LV ID, ED, PLAX 4.1 cm 4.5 3.5 - 6.0 LV ID, ES, PLAX 3.4 cm 3.3 2.1 - 4.0 LV PW thickness, ED, PLAX 1.2 cm 1.0 LV end-diastolic volume, 93 ml 115 1-p A2C LV ejection fraction, 1-p 40 % 62 A2C LV end-diastolic volume, 76 ml 105 1-p A4C LV ejection fraction, 1-p 41 % 49 A4C LV e', lateral 0.05 m/sec 0.085 LV E/e', lateral 17 9 LV e', medial 0.056 m/sec 0.045 LV E/e', medial 15 17 LV e', average 0.053 m/sec 0.065 LV E/e', average 16 11 Ventricular septum Value 05/08/2019 Reference IVS thickness, ED, PLAX 1.1 cm 1.0 LVOT Value 05/08/2019 Reference LVOT ID, A-P 2.0 cm 2.0 LVOT area 3.2 cm^2 3.1 LVOT peak velocity, S 1.19 m/sec 0.93 LVOT mean velocity, S 0.91 m/sec 0.62 LVOT VTI, S 19.9 cm 18.0 LVOT peak gradient, S 5.7 mm Hg 3.5 LVOT mean gradient, S 3.6 mm Hg 1.7 Stroke volume (SV), LVOT 63 ml 55 DP Stroke index (SV/bsa), 34 ml/m^2 29 LVOT DP Aortic valve Value 05/08/2019 Reference Aortic valve peak 2.8 m/sec 1.5 velocity, S Aortic valve mean 1.8 m/sec 1 velocity, S Aortic valve VTI, S 49.0 cm 29.0 Aortic mean gradient, S 15.2 mm Hg 4.8 Aortic peak gradient, S 31.4 mm Hg 8.6 VTI ratio, LVOT/AV 0.41 0.62 Aortic valve area, VTI 1.3 cm^2 1.9 Velocity ratio, peak, 0.42 0.64 LVOT/AV Aortic valve area, peak 1.4 cm^2 2 velocity Velocity ratio, mean, 0.51 0.59 LVOT/AV Aortic valve area, mean 1.6 cm^2 1.8 velocity Aortic valve area/bsa, 0.9 cm^2/m^2 1 mean velocity Left atrium Value 05/08/2019 Reference LA ID, A-P, ES 3.9 cm 4.0 LA ID/bsa, A-P 2.1 cm/m^2 2.1 <=2.2 LA volume/bsa, ES, 1-p A4C 25 ml/m^2 LA volume, ES, 2-p 39 ml 43 LA volume/bsa, ES, 2-p 21 ml/m^2 23 Mitral valve Value 05/08/2019 Reference Mitral E-wave peak 0.83 m/sec 0.74 velocity Mitral A-wave peak 0.98 m/sec 1.07 velocity Mitral deceleration time 208 ms 208 150 - 230 Mitral pressure half-time 60 ms 60 Mitral peak gradient, D 2.7 mm Hg 2.2 Mitral E/A ratio, peak 0.84 0.69 Mitral valve area, PHT, DP 3.7 cm^2 3.7 Tricuspid valve Value 05/08/2019 Reference Tricuspid regurg peak 3.5 m/sec 3.1 velocity Tricuspid peak RV-RA 48.6 mm Hg 37.9 gradient Right atrium Value 05/08/2019 Reference RA area, ES, A4C 11.5 cm^2 10.6 8.3 - 19.5 Legend: (L) and (H) kye values outside specified reference range. I have personally reviewed the images and have reviewed and edited the reported findings. Electronically signed by Haja Ortega 06/03/2019 10:10
== END ==
PROVIDERS: PCP Family Medicine; Visit Provider Family Medicine
DX: I10 Essential (primary) hypertension (principal); R06.02 Shortness of breath; I34.0 Nonrheumatic mitral (valve) insufficiency; Z95.1 Presence of aortocoronary bypass graft; Z95.2 Presence of prosthetic heart valve; B20 Human immunodeficiency virus [HIV] disease
CPT/HCPCS: 93306; 99215

== ENCOUNTER 2019-06-05 13:31 | Outpatient (RCR) | payer MEDICARE, OTHER, SELFPAY | END 2019-06-16 23:59 | disposition home or self-care (01) | LOC: CR 13:31 | PROVIDERS: PCP Family Medicine; Visit Provider Family Medicine | DX: Z95.1 Presence of aortocoronary bypass graft (principal); Z95.2 Presence of prosthetic heart valve; Z51.89 Encounter for other specified aftercare ==

== ENCOUNTER 2019-06-16 16:32 | Outpatient (CLI) | payer MEDICARE, OTHER, SELFPAY | END 2019-06-16 16:52 | PROVIDERS: PCP Family Medicine; Referring Provider Nurse Practitioner Family; Visit Provider Internal Medicine Infectious Disease | DX: B20 Human immunodeficiency virus [HIV] disease (principal); Z79.899 Other long term (current) drug therapy | CPT/HCPCS: 99215 ==

== ENCOUNTER 2019-06-19 02:40 | Outpatient (CLI) | payer MEDICARE, OTHER, SELFPAY ==
--- NOTE | 2019-06-19 08:55 | DI.RAD_ITS ---
EXAM: RF BARIUM SWALLOW CLINICAL HISTORY: hypoxia when supine R09.02 HYPOXEMIA, K21.9 GASTRO ESOPHAGEAL REFLUX. TECHNIQUE: COMPARISON: XR CHEST 2V PA LATERAL from 04/22/2019 FINDINGS: Preliminary films of the chest and neck show aortic valve prosthesis and some left lower lobe scarrin g or atelectasis with otherwise clear lungs. Cardiac size within normal limits. Laryngeal aorta col umn unremarkable. Barium was ingested and showed normal esophageal mucosal appearance with no evidence of obstruction t here is no evidence of gastroesophageal reflux seen on a delayed supine film. IMPRESSION: Negative barium swallow.
== END 2019-06-19 03:00 ==
PROVIDERS: PCP Family Medicine; Visit Provider Family Medicine
DX: R09.02 Hypoxemia (principal); K21.9 Gastro-esophageal reflux disease without esophagitis; Z95.2 Presence of prosthetic heart valve; J98.4 Other disorders of lung
CPT/HCPCS: 74220

== ENCOUNTER 2019-06-19 09:57 | Outpatient (CLI) | payer MEDICARE, OTHER, SELFPAY ==
[2019-06-19 10:57] LABS: HCT 43.6 % (40.0-50.0); HGB 14.5 g/dL (13.5-17.5); Mean Corp. HGB Concentration 33.3 g/dL (32.0-36.0); Mean Corpuscular Hemoglobin 32.3 pg (27.0-33.0); Mean Corpuscular Volume 97.1 fL (80-95); Platelet Count 183 x1000/uL (130-400); RBC 4.49 m/cumm (4.50-6.00); RBC Distribution Width 15.1 % (11.8-14.1); White Blood Cell Count 7.04 k/cumm (4.4-10.8)
[2019-06-19 11:39] LABS: Abs Immature Grans 0.01 k/cumm (0.0-0.09); Absolute Basophil Count 0.06 k/cumm (0.0-0.2); Absolute Eosinophil Count 0.25 k/cumm (0.0-0.7); Absolute Lymphocyte Count 2.64 k/cumm (1.2-3.4); Absolute Monocyte Count 0.44 k/cumm (0.11-0.7); Absolute Neutrophil Count 3.62 k/cumm (1.2-6.7); Basophils % 0.9; Eosinophils % 3.6; Immature Grans % 0.1; Lymphocytes % 37.6; Monocytes % 6.3; Neutrophils % 51.5
[2019-06-19 11:50] LABS: NT-proBNP 1064 pg/mL
== END 2019-06-19 10:17 ==
PROVIDERS: PCP Family Medicine; Visit Provider Internal Medicine Cardiovascular Disease
DX: B20 Human immunodeficiency virus [HIV] disease (principal); R06.02 Shortness of breath
CPT/HCPCS: 85027; 83880; 85007

== ENCOUNTER 2019-06-19 10:03 | Outpatient (CLI) | payer MEDICARE, OTHER, SELFPAY ==
[2019-06-23 14:47] LABS: CD3 70 % (62-87); CD4 29 % (35-63); CD8 39 % (10-35); HIV-1 RNA Quantification 66 copies/mL (UNDECT)
== END 2019-06-19 10:23 ==
PROVIDERS: PCP Family Medicine; Visit Provider Internal Medicine Infectious Disease
DX: B20 Human immunodeficiency virus [HIV] disease (principal)
CPT/HCPCS: 36415; 85027; 87536; 74220; 83880; 85007; 86359; 86360

== ENCOUNTER 2019-07-14 13:06 | Outpatient (RCR) | payer MEDICARE, OTHER, SELFPAY | END 2019-07-17 23:59 | disposition home or self-care (01) | LOC: CR 13:06 | PROVIDERS: PCP Family Medicine; Visit Provider Family Medicine | DX: Z95.1 Presence of aortocoronary bypass graft (principal); Z95.2 Presence of prosthetic heart valve; Z51.89 Encounter for other specified aftercare | CPT/HCPCS: S9472 ==

== ENCOUNTER 2019-08-08 09:00 | Outpatient (RCR) | payer MEDICARE, OTHER, SELFPAY | END 2019-08-16 23:59 | disposition home or self-care (01) | LOC: CR 09:00 | PROVIDERS: PCP Family Medicine; Visit Provider Family Medicine | DX: Z95.1 Presence of aortocoronary bypass graft (principal); Z95.2 Presence of prosthetic heart valve; Z51.89 Encounter for other specified aftercare | CPT/HCPCS: S9472 ==

== ENCOUNTER 2019-08-26 09:34 | Outpatient (CLI) | payer MEDICARE, OTHER, SELFPAY ==
[2019-08-26 12:46] LABS: HCT 48.1 % (40.0-50.0); HGB 15.8 g/dL (13.5-17.5); Mean Corp. HGB Concentration 32.8 g/dL (32.0-36.0); Mean Corpuscular Volume 97.4 fL (80-95); Mean Platelet Volume 11.4 fL (8.0-11.0); Platelet Count 161 x1000/uL (130-400); RBC 4.94 m/cumm (4.50-6.00); RBC Distribution Width 13.4 % (11.8-14.1); White Blood Cell Count 7.64 k/cumm (4.4-10.8)
[2019-08-26 13:05] LABS: Hemoglobin A1C 5.9 % (4.5-6.2)
[2019-08-26 13:07] LABS: Iron 78 ug/dL (65-175)
[2019-08-26 13:34] LABS: ALT 26 U/L (16-63); AST 24 U/L (15-37); Albumin 3.9 g/dL (3.4-5.0); Alkaline Phosphatase 68 U/L (46-116); Anion Gap 9.1 mmol/L (3-11); BUN 18 mg/dL (7-18); Bilirubin, Total 0.7 mg/dL (0.2-1.0); CO2 29.9 mmol/L (21.0-32.0); CREATININE 1.13 mg/dL (0.70-1.30); Calcium 9.2 mg/dL (8.5-10.1); Chloride 106 mmol/L (98-107); Glucose 101 mg/dL (74-106); Potassium 4.2 mmol/L (3.5-5.1); Sodium 145 mmol/L (136-145)
== END 2019-08-26 09:54 ==
PROVIDERS: PCP Family Medicine; Visit Provider Family Medicine
DX: E11.9 Type 2 diabetes mellitus without complications (principal); R06.01 Orthopnea; Z95.1 Presence of aortocoronary bypass graft; Z95.2 Presence of prosthetic heart valve
CPT/HCPCS: 36415; 80053; 85027; 83036; 83540; 84443

== ENCOUNTER 2019-09-15 10:46 | Outpatient (RCR) | payer MEDICARE, OTHER, SELFPAY | END 2019-09-16 23:59 | disposition home or self-care (01) | LOC: CR 10:46 | PROVIDERS: PCP Family Medicine; Visit Provider Family Medicine | DX: Z95.1 Presence of aortocoronary bypass graft (principal); Z95.2 Presence of prosthetic heart valve; Z51.89 Encounter for other specified aftercare | CPT/HCPCS: S9472 ==

== ENCOUNTER 2019-10-15 10:33 | Outpatient (CLI) | payer MEDICARE, OTHER, SELFPAY ==
[2019-10-15 11:35] LABS: Abs Immature Grans 0.01 k/cumm (0.0-0.09); Absolute Basophil Count 0.04 k/cumm (0.0-0.2); Absolute Eosinophil Count 0.17 k/cumm (0.0-0.7); Absolute Lymphocyte Count 2.39 k/cumm (1.2-3.4); Absolute Monocyte Count 0.48 k/cumm (0.11-0.7); Absolute Neutrophil Count 3.92 k/cumm (1.2-6.7); Basophils % 0.6; Eosinophils % 2.4; HCT 45.5 % (40.0-50.0); HGB 15.5 g/dL (13.5-17.5); Immature Grans % 0.1 %; Lymphocytes % 34.1; Mean Corp. HGB Concentration 34.1 g/dL (32.0-36.0); Mean Corpuscular Hemoglobin 32.6 pg (27.0-33.0); Mean Corpuscular Volume 95.6 fL (80-95); Mean Platelet Volume 11.5 fL (8.0-11.0); Monocytes % 6.8; Platelet Count 139 x1000/uL (130-400); RBC 4.76 m/cumm (4.50-6.00); RBC Distribution Width 13.5 % (11.8-14.1); White Blood Cell Count 7.01 k/cumm (4.4-10.8)
[2019-10-15 12:01] LABS: ALT 30 U/L (16-63); AST 27 U/L (15-37); Albumin 3.9 g/dL (3.4-5.0); Alkaline Phosphatase 69 U/L (46-116); Anion Gap 9.2 mmol/L (3-11); BUN 15 mg/dL (7-18); Bilirubin, Total 1.7 mg/dL (0.2-1.0); CO2 28.8 mmol/L (21.0-32.0); CREATININE 1.14 mg/dL (0.70-1.30); Chloride 106 mmol/L (98-107); Glucose 98 mg/dL (74-106); Potassium 4.1 mmol/L (3.5-5.1); Sodium 144 mmol/L (136-145); Total Protein 6.7 g/dL (6.4-8.2)
[2019-10-16 15:56] LABS: HIV-1 RNA Quantification 38 copies/mL (Undetected)
[2019-10-16 16:52] LABS: CD3 68 % (62-87); CD4 30 % (35-63); CD8 37 % (10-35)
== END 2019-10-15 10:53 ==
PROVIDERS: PCP Family Medicine; Visit Provider Internal Medicine Infectious Disease
DX: B20 Human immunodeficiency virus [HIV] disease (principal); Z79.899 Other long term (current) drug therapy
CPT/HCPCS: 36415; 80053; 87536; 85025; 86359; 86360

== ENCOUNTER 2019-10-17 08:00 | Outpatient (RCR) | payer MEDICARE, OTHER, SELFPAY | END 2019-10-17 23:59 | disposition home or self-care (01) | LOC: CR 08:00 | PROVIDERS: PCP Family Medicine; Visit Provider Family Medicine | DX: Z95.1 Presence of aortocoronary bypass graft (principal); Z95.2 Presence of prosthetic heart valve; Z51.89 Encounter for other specified aftercare | CPT/HCPCS: S9472 ==

== ENCOUNTER 2019-10-18 01:38 | Outpatient (RCR) | payer MEDICARE, OTHER, SELFPAY | END 2019-11-15 23:59 | disposition home or self-care (01) | LOC: CR 01:38 | PROVIDERS: PCP Family Medicine; Visit Provider Family Medicine | DX: Z95.1 Presence of aortocoronary bypass graft (principal); Z95.2 Presence of prosthetic heart valve; Z51.89 Encounter for other specified aftercare | CPT/HCPCS: S9472 ==

== ENCOUNTER 2019-10-20 10:30 | Outpatient (CLI) | payer MEDICARE, OTHER, SELFPAY | END 2019-10-20 10:50 | PROVIDERS: PCP Family Medicine; Referring Provider Nurse Practitioner Family; Visit Provider Internal Medicine Infectious Disease | DX: B20 Human immunodeficiency virus [HIV] disease (principal); Z79.899 Other long term (current) drug therapy | CPT/HCPCS: 99215 ==

== ENCOUNTER 2020-01-28 01:56 | Outpatient (CLI) | payer MEDICARE, OTHER, SELFPAY ==
--- NOTE | 2020-01-28 10:29 | DI.US_ITS ---
APPROVED REPORT EXAM: Comprehensive 2D, Doppler, and color-flow Echocardiogram Patient Location: Out-Patient [place] Worker: Nadja Maynard RDCS (AE) Indications: CAD, Muscle weakness Other Information Study Quality: Adequate Conclusion Left Ventricle : The left ventricle is normal size. The left ventricular systolic function is normal. The left ventricular ejection fraction is within the normal range. There is normal left ventricular wall thickness. There is normal LV segmental wall motion. The left ventricular diastolic function is normal. LVEF is 55%. Right Ventricle : The right ventricle is normal size. The right ventricular systolic function is norm al. The RVSP is 29 mmHg. Atria : The left atrium size is normal. The right atrium size is normal. Aortic Valve : Bioprosthetic aortic valve is present. No hemodynamically significant valvular aortic stenosis. Trace aortic regurgitation. Great Vessels : IVC is normal in size and collapses >50% with inspiration. Compared to echocardiogram dated 06/03/2019: Aortic valve peak velocity and mean gradient have decreas ed slightly. RVSP has also decreased. Wall motion Left Ventricle The left ventricle is normal size. The left ventricular systolic function is normal. The left ventric ular ejection fraction is within the normal range. There is normal left ventricular wall thickness. T here is normal LV segmental wall motion. The left ventricular diastolic function is normal. There is no ventricular septal defect visualized. LVEF is 55%. Right Ventricle The right ventricle is normal size. The right ventricular systolic function is normal. The RVSP is 29 mmHg. Atria The left atrium size is normal. The right atrium size is normal. The interatrial septum is intact wit h no evidence for an atrial septal defect. Aortic Valve Bioprosthetic aortic valve is present. No hemodynamically significant valvular aortic stenosis. Trace aortic regurgitation. Bioprosthetic aortic valve is present. Mitral Valve There is mitral annular calcification. No evidence of mitral valve stenosis. Trace to mild mitral reg urgitation. Tricuspid Valve The tricuspid valve is normal in structure. There is no tricuspid valve stenosis. Trace tricuspid reg urgitation. Pulmonic Valve The pulmonary valve is normal in structure. There is no pulmonic valvular stenosis. Trace pulmonic re gurgitation. Great Vessels The aortic root is normal in size. Aortic arch is normal in caliber. IVC is normal in size and collap ses >50% with inspiration. Pericardium There is no pericardial effusion. 2D Dimensions IVSD d PLAX 0.95 cm M: 0.6-1.2 LV Vol A2C d MOD 119.4 mL LVPW d PLAX 0.98 cm M: 0.6 - 1.2 LV Vol A4C d MOD 97.5 mL LVID d PLAX 4.53 cm M: 4.2 - 5.8 LA vol/ BSA A2C s A-L 21.2 mL/m2 LVDs 3.45 cm M: 2.5 - 4.0 LA vol/ BSA A4C s A-L 22.8 mL/m2 Ao Root d 2.99 cm M: 3.1 - 3.7 LA Vol/ BSA Biplane s A-L 22.7 mL/m2 RA Area A4C 20.48 cm2 LA Area A4C s MOD 16.65 cm2 RA Vol/ BSA A4C s A-L 32.7 mL/m2 LA Area A2C s MOD 15.56 cm2 LV EF Teichholz 46.1 % LV EF A4C MOD 54.2 % LVEF (Garcia's) 54.08 % M: 52 - 72 LV EF A2C MOD 53.7 % LV Volume 82.85 mL M: 62 - 150 LV EF Biplane MOD 54.1 % LV Volume Index 43.15 mL/m2 M: 34 - 74 SV 64.00 mL LV Vol Biplane MOD 109.1 mL SV Index 33.30 mL/m2 FS 22.90 % M-Mode TAPSE 1.66 cm (M/F) >1.7 LV Diastology MV E' medial 0.060 (>0.07 m/s) E/A Ratio 0.9 LV E/e MED 15.80 (<14) MV E Vmax 0.95 (0.4-1.3 m/s) MV E' lateral 0.095 (>0.1 m/s) MV A Vmax 1.00 (0.4-1.3 m/s) LV E/e LAT 10.10 (<14) MV E/A Ratio 0.93 MV E/E' medial 15.84 MV E/E' lateral 10.10 Aortic Valve LVOT Vmax 1.20 m/s AR DT 2300 msec LVOT Mean Redd. 0.77 m/s AR PHT 667 msec LVOT Peak Grad 5.8 mmHg LVOT Mean Grad 2.8 mmHg LVOT VTI 0.252 m AoV Vmax 2.11 (0.5-1.3 m/s) Velocity Ratio 0.56 AoV Mean Redd. 1.48 m/s AoV Peak Grad 17.8 mmHg AoV Mean Grad 9.8 (<5 mmHg) AoV VTI 0.424 (0.18-0.25 m) Mitral Valve MV DT 228 (160-240 msec) MV PHT 66 msec MV Area PHT 3.33 cm2 Pulmonary Valve PV Vmax 1.04 (0.5-1.5 m/s) RVOT Peak Gr. 0.67 mmHg PV Peak Grad 4.4 mmHg RVOT Mean Gr. 0.30 mmHg PV Mean Grad 2.0 mmHg RVOT VTI 0.081 m PV VTI 0.159 m RVOT Vmax 0.41 m/s Tricuspid Valve TR Peak Grad 26.1 mmHg TR Vmax 2.55 m/s RA Pressure 3.00 mmHg RVSP (TR) 29.1 mmHg
== END 2020-01-28 02:16 ==
PROVIDERS: PCP Family Medicine; Visit Provider Internal Medicine
DX: I25.10 Atherosclerotic heart disease of native coronary artery without angina pectoris (principal); R06.02 Shortness of breath; M62.81 Muscle weakness (generalized); Z95.2 Presence of prosthetic heart valve
CPT/HCPCS: 93306

== ENCOUNTER 2020-04-12 02:14 | Outpatient (CLI) | payer MEDICARE, OTHER, SELFPAY ==
[2020-04-12 14:50] LABS: Abs Immature Grans 0.01 k/cumm (0.0-0.09); Absolute Basophil Count 0.03 k/cumm (0.0-0.2); Absolute Eosinophil Count 0.17 k/cumm (0.0-0.7); Absolute Lymphocyte Count 2.99 k/cumm (1.2-3.4); Absolute Neutrophil Count 3.75 k/cumm (1.2-6.7); Basophils % 0.4; Eosinophils % 2.3; HGB 15.9 g/dL (13.5-17.5); Immature Grans % 0.1 %; Lymphocytes % 40.1; Mean Corp. HGB Concentration 34.6 g/dL (32.0-36.0); Mean Corpuscular Hemoglobin 33.1 pg (27.0-33.0); Mean Corpuscular Volume 95.6 fL (80-95); Mean Platelet Volume 11.6 fL (8.0-11.0); Monocytes % 6.7; Neutrophils % 50.4; Platelet Count 112 x1000/uL (130-400); RBC 4.81 m/cumm (4.50-6.00); RBC Distribution Width 12.8 % (11.8-14.1); White Blood Cell Count 7.45 k/cumm (4.4-10.8)
[2020-04-12 15:33] LABS: ALT 28 U/L (16-63); AST 22 U/L (15-37); Albumin 3.9 g/dL (3.4-5.0); Alkaline Phosphatase 67 U/L (46-116); Anion Gap 10.3 mmol/L (3-11); Bilirubin, Total 1.8 mg/dL (0.2-1.0); CO2 26.7 mmol/L (21.0-32.0); CREATININE 1.17 mg/dL (0.70-1.30); Chloride 104 mmol/L (98-107); Glucose 91 mg/dL (74-106); NT-proBNP 305 pg/mL (<300); Sodium 141 mmol/L (136-145); Total Protein 6.8 g/dL (6.4-8.2)
[2020-04-12 15:40] LABS: BUN 16 mg/dL (7-18)
[2020-04-15 15:08] LABS: HIV 1 RNA Qualitative Undetected copies/mL (Undetected)
== END 2020-04-12 02:34 ==
PROVIDERS: PCP Family Medicine; Visit Provider Nurse Practitioner Family
DX: B20 Human immunodeficiency virus [HIV] disease (principal); Z79.899 Other long term (current) drug therapy; R06.01 Orthopnea
CPT/HCPCS: 36415; 80053; 87536; 83880; 85025; 86359; 86360

== ENCOUNTER 2020-04-13 10:59 | Outpatient (CLI) | payer MEDICARE, OTHER, SELFPAY ==
[2020-04-14 17:33] LABS: CD3 69 % (62-87); CD4 30 % (35-63); CD8 39 % (10-35)
== END 2020-04-13 11:19 ==
PROVIDERS: PCP Family Medicine; Visit Provider Nurse Practitioner Family
DX: B20 Human immunodeficiency virus [HIV] disease (principal); Z79.899 Other long term (current) drug therapy
CPT/HCPCS: 86359; 86360

== ENCOUNTER → 2020-04-19 07:58 | Outpatient (BNVA) | payer MEDICARE, OTHER, SELFPAY | PROVIDERS: PCP Family Medicine; Referring Provider Family Medicine; Visit Provider Student in an Organized Health Care Education/Training Program | DX: G56.02 Carpal tunnel syndrome, left upper limb (principal) | CPT/HCPCS: 99203; 99214 ==

== ENCOUNTER 2020-04-30 08:49 | Outpatient (CLI) | payer MEDICARE, OTHER, SELFPAY ==
[2020-05-01 17:28] LABS: COVID-19 RT-PCR Result NEGATIVE (Negative)
== END 2020-04-30 09:09 ==
PROVIDERS: PCP Family Medicine; Visit Provider Student in an Organized Health Care Education/Training Program
DX: Z11.59 Encounter for screening for other viral diseases (principal); Z01.818 Encounter for other preprocedural examination
CPT/HCPCS: U0003

== ENCOUNTER 2020-05-04 11:19 | Day surgery (SDC) | payer MEDICARE, OTHER, SELFPAY ==
--- NOTE | 2020-05-04 11:31 | W.PM.DSUDISC ---
Discharge Plan Disposition Patient Disposition: HOME Condition: Good Discharge Details Reason For Visit: Left ECTR Attending Provider: Zackery Connolly Primary Care Provider: Lorrie Conte Home Meds and New Rx's Prescriptions: New ibuprofen 600 mg tablet 600 mg PO TID PRN (Reason: pain) Qty: 30 RF: 0 acetaminophen 500 mg capsule 500 mg PO Q4H PRN (Reason: pain) Qty: 30 RF: 0 Continued tamsulosin 0.4 mg capsule 0.4 mg PO DAILY RF: 0 Biktarvy 50-200-25 mg tablet 1 tab PO DAILY RF: 0 aspirin 81 mg tablet,chewable 81 mg PO DAILY RF: 0 melatonin 5 mg capsule PO DAILY RF: 0 atorvastatin 20 mg tablet 20 mg PO DAILY Qty: 90 RF: 3 Discharge Instructions Stand Alone Forms: Mohsen Blanchard Tunnel Release Activity:: Activity as Tolerated Remove Dressings/Wound Care:: 48 hours Shower/Bathe:: 48 hours Diet:: As Tolerated Discharge Orders Discharge Orders: Discharge Order (Routine); Ordered 05/04/20 Ordered By: Cruzito García DS: Diagnosis Discharge Diagnosis (1) Carpal tunnel syndrome of left wrist: Status: Acute
[2020-05-04 11:48] VITALS: BP 123/68; PULSE 65; RESP 14; TEMP 36.2; O2SAT 14
[2020-05-04] MEDS: Lactated Ringers 1,000 ML 80 ML IV (12:15)
[2020-05-04] MEDS: ceFAZolin 2 GM/50 ML BAG IVPB (13:37)
[2020-05-04] MEDS: Sodium Bicarbonate 50 MEQ/50 ML VIAL (13:49)
[2020-05-04 14:35] VITALS: BP 146/69; PULSE 70; RESP 16; TEMP 36.2; O2SAT 96
--- NOTE | 2020-05-04 20:53 | ROE_ITS ---
Date of service: 05/04/20 Time of Service: 14:53 Operative Note Operative Note DATE OF PROCEDURE: 05/04/20 PRE-OP DIAGNOSIS: Left carpal tunnel syndrome POST-OP DIAGNOSIS: same PROCEDURE: Left Endoscopic Carpal Tunnel Release SURGEON: Zakcery Connolly ANESTHESIA: GETJeet ESTIMATED BLOOD LOSS: 0 PATHOLOGY: none sent TOURNIQUET TIME: 6 COMPLICATIONS: None Patient was transported to: same day Patient's condition: stable Indications: I have seen Bari in clinic for symptoms of carpal tunnel syndrome. The numbness, tingling, and pain limited function. Clinical exam findings [with nerve conduction tests ]confirmed the diagnosis of carpal tunnel syndrome. Nonoperative measures such as bracing, time, activity modifications had been tried but disability and pain persisted. I discussed carpal tunnel release with the patient. I reviewed the risks of the procedure to include, but not limited to, bleeding, infection, pain, stiffness, incomplete release, damage to nerves or vessels, persistent numbness, recurrence. Despite these risks, the patient elected to proceed. Findings: There was tightened carpal tunnel. This was dilated and released successfully with the endoscopic with increased space within the tunnel. The antebrachial fascia was released proximally freeing the median nerve at the wrist. Procedure Description: Bari was greeted in the preoperative holding area where the correct side was identified and marked. The consent was reviewed with the patient and signed. The history and physical was updated. All questions were answered. Bari was taken back to the operating room. The patient was placed into the supine position on the operating room table with the left arm on an arm board. A nonsterile tourniquet was placed high onto the arm. All bony prominences were well padded. Prophylactic antibiotics in the form of Cefazolin were administered. The left arm was then prepped with Chloraprep and draped in a standard fashion with stockinette and extremity drape. A timeout to confirm correct identity, side and site, procedure, allergies, anesthesia, and medical concerns was performed. The surgical site was marked in the volar wrist creases in line with the radial border of the fourth ray. This area was anesthetized with approximately 6cc of 1% Lidocaine. The limb was then exsanguinated with an Esmarch. The skin was incised with a 15 blade, approximately 1cm. The skin only was cut and the deeper tissue was dissected bluntly with a tenotomy scissor, avoiding passing nerve and venous structures. The fascia was penetrated and opened bluntly. A two-prong skin hook was placed under this proximal fascial edge. A series of hamate finders were used to identify and dilate the carpal tunnel. Synovial elevator was used to free synovial attachments to the underside of the transverse carpal ligament. My thumb was kept in the palm to kye the distal extent of the carpal tunnel and correctly position the hand. The Microaire endoscope was inserted without difficulty and without resistance. Excellent vis ualization showed horizontally running fibers of the transverse carpal ligament (TCL). The distal extent of the TCL was visualized and the end of the scope palpated with the thumb. The blade was elevated and withdrawn from distal to proximal. The TCL was split into two flaps. The endoscope was reinserted to confirm complete release and any remnant ligament was incised. The scope was withdrawn and the proximal aspect of the carpal tunnel was grossly inspected and appeared release with the median nerve visible. The antebrachial fascia at the level of the wrist was then freed from the overlying skin and then the underlying median nerve with blunt dissection. This was transected longitudinally for about 3cm proximal to the wrist incision. The wound was then irrigated with easy flow of irrigant distally and proximally. The incision was closed with a single 4-0 Nylon suture. The wound was dressed with Xeroform, Gauze, Kerlix and Kevin. The tourniquet was deflated with the initial dressing and held with some pressure. Blood flow returned easily to all digits with capillary refill less than 2 seconds. The patient tolerated the procedure well and was returned to the Same Day Surgery area in a stable condition suffering no known complication.
== END 2020-05-04 15:14 | disposition home or self-care (01) ==
PROVIDERS: PCP Family Medicine; Visit Provider Student in an Organized Health Care Education/Training Program
PROC: 01N54ZZ Release Median Nerve, Percutaneous Endoscopic Approach (ICD-10-PCS; CPT 29848; principal; 2020-05-04 14:00)
DX: G56.02 Carpal tunnel syndrome, left upper limb (principal)
CPT/HCPCS: 29848; J0690; J2001; L3650

== ENCOUNTER 2020-06-02 14:09 | Outpatient (CLI) | payer MEDICARE, OTHER, SELFPAY ==
--- NOTE | 2020-06-02 16:11 | W.CCNOTE ---
Date of service: 06/02/20 Time of Service: 14:11 Comprehensive Care Clinic Note Note: [facility] [address] [place] [address] 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 He is very much enjoying it. He says he has tried to lose some fat weight and has gotten 10 lbs. off by also including biking and other physical activity. He says over all he is feeling great. He does not feel he has any adverse side effect to the Biktarvy for HIV Antiretrovial treatment. His lab visit with Dr. Parker was in the summer and he is not due for F/U w him until the winter when blood work will also be due again. He has not had access issues in getting the medication and has not missed any doses. He will get a flu shot today and will ask his PCP to send over a listing of the vaccines in their record he has received. ROS Constitutional: Good energy, appetite, sleep. Weight is down per his effort. Skin: Denies rash Head: Denies trauma, head pain Eyes: Denies visual disturbance, has corrective lenses glasses Ear/Nose/Throat: Negative Mouth/Teeth: UTD w dental Neck: No pain or stiffness CV: Denies chest pain, pressure, palpitations Respiratory: Some smokers cough in the morning, denies dyspnea, hemoptysis GI: No N/V/D/C or rectal bleeding : Negative Musculoskeletal: Denies joint or back pain Endocrine: No polyuria, polydipsia; heat or cold intolerance Lymphatic: Has not noted any enlarged nodes Hematologic: No unusual bleeding, bruising Immunologic: CD4 count has never been below 200, no risk for OI Psychiatric: Denies Anxiety, Depression, SI/HI Allergies/Sensitivities: NKDA Current Medications: ASA 81 mg qd, atorvastatin 20mg qd, Biktarvy 50-200-25 1 tab/d, fluconazole prn, furosemide 20mg bid, gabapentin 300mg 1 q 8 hours prn pain, metoprolol tartrate 37.5 mg bid, KCl 10 mEq /d, tamsulosin 0.4 mg qd, tramadol 50 mg 1 tab q8 hrs prn pain. 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 Influenza vaccine Health Maintenance: UTD w PCP OBJECTIVE Weight: Not taken as the visit was outside the clinic. 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 Not AIDS, stable on current antiretroviral medication and tolerating this very well with no breaks in treatment. Immunization: Flulaval Quadravalent , ID [id number], Lot # [id number], Exp: 03/16/2021 MD visit scheduled: in the winter and Lab work will be due then Provider of Care: Loulou Guzmán, MSN, RISK [employer]OL PRODUCT LIABILITY DIRECTOR
== END 2020-06-02 14:29 ==
PROVIDERS: PCP Family Medicine; Visit Provider Nurse Practitioner Family
DX: B20 Human immunodeficiency virus [HIV] disease (principal); Z23 Encounter for immunization
CPT/HCPCS: 90686; 99214; Q2036

== ENCOUNTER 2020-09-23 02:34 | Outpatient (CLI) | payer MEDICARE, OTHER, SELFPAY ==
[2020-09-23 13:10] LABS: Abs Immature Grans 0.03 10^3/uL (0.0-0.06); Absolute Basophil Count 0.07 10^3/uL (0.0-0.2); Absolute Eosinophil Count 0.25 10^3/uL (0.0-0.7); Absolute Lymphocyte Count 2.14 10^3/uL (1.2-3.4); Absolute Monocyte Count 0.61 10^3/uL (0.1-0.8); Eosinophils % 3.4; HCT 46.9 % (40.0-50.0); HGB 15.8 g/dL (13.5-17.5); Immature Grans % 0.4; Lymphocytes % 29.3; MCHC 33.7 % (32.0-36.0); MCV 97.9 fL (80-95); MPV 11.8 fL (8.0-11.0); Monocytes % 8.4; Neutrophils % 57.5; Nucleated RBC 0 %; Platelet Count 135 10^3/uL (130-400); RBC 4.79 10^6/uL (4.36-5.78); RDW 12.3 % (11.8-14.1); RDW-SD 44.3 fL
[2020-09-23 13:26] LABS: ALT 32 U/L (16-63); AST 21 U/L (15-37); Albumin 3.9 g/dL (3.4-5.0); Alkaline Phosphatase 78 U/L (46-116); BUN 24 mg/dL (7-18); Bilirubin, Total 2.3 mg/dL (0.2-1.0); CREATININE 1.25 mg/dL (0.70-1.30); Calcium 8.8 mg/dL (8.5-10.1); Calculated LDL 48 mg/dL (<100); Chloride 104 mmol/L (98-107); Cholesterol 118 mg/dL (<200); Glucose 108 mg/dL (74-106); HDL Cholesterol 43 mg/dL (40-60); Potassium 4.4 mmol/L (3.5-5.1); Sodium 141 mmol/L (136-145); Total Protein 6.9 g/dL (6.4-8.2); Triglyceride 135 mg/dL (<150)
[2020-09-26 13:07] LABS: CD3 73 % (62-87); CD4 38 % (35-63); CD8 34 % (10-35)
[2020-09-27 13:11] LABS: HIV 1 RNA Qualitative Detected copies/mL (Undetected); HIV 1 RNA Quantitative 26 copies/mL (Undetected)
== END 2020-09-23 02:54 ==
PROVIDERS: PCP Family Medicine; Visit Provider Nurse Practitioner Family
DX: B20 Human immunodeficiency virus [HIV] disease (principal); Z79.899 Other long term (current) drug therapy; I10 Essential (primary) hypertension
CPT/HCPCS: 36415; 80053; 80061; 87536; 85025; 86359; 86360

== ENCOUNTER 2021-05-03 15:41 | Outpatient (CLI) | payer MEDICARE, OTHER, SELFPAY ==
[2021-05-03 16:12] LABS: ALT 30 U/L (16-63); AST 23 U/L (15-37); Alkaline Phosphatase 68 U/L (46-116); Anion Gap 8.3 mmol/L (3-11); BUN 21 mg/dL (7-18); Bilirubin, Total 1.6 mg/dL (0.2-1.0); CO2 26.7 mmol/L (21.0-32.0); CREATININE 1.2 mg/dL (0.70-1.30); Calcium 8.9 mg/dL (8.5-10.1); Chloride 107 mmol/L (98-107); Estimated GFR 59.86 (mL/min/1.73m2); Glucose 100 mg/dL (74-106); Potassium 4.1 mmol/L (3.5-5.1); Sodium 142 mmol/L (136-145); Total Protein 6.6 g/dL (6.4-8.2)
== END 2021-05-03 15:42 | disposition home or self-care (01) ==
LOC: LBO 05-04 15:52
PROVIDERS: PCP Family Medicine; Visit Provider Internal Medicine Infectious Disease
DX: Z79.899 Other long term (current) drug therapy
CPT/HCPCS: 36415; 80053; 87536

== ENCOUNTER 2021-06-10 02:53 | Outpatient (CLI) | payer MEDICARE, OTHER, SELFPAY ==
[2021-06-13 14:44] LABS: HIV 1 RNA Qualitative Detected copies/mL (Undetected); HIV 1 RNA Quantitative 76 copies/mL (Undetected)
== END 2021-06-10 02:54 | disposition home or self-care (01) ==
LOC: LBO 02:54
PROVIDERS: PCP Family Medicine; Visit Provider Nurse Practitioner Family
DX: B20 Human immunodeficiency virus [HIV] disease (principal); Z79.899 Other long term (current) drug therapy
CPT/HCPCS: 87536

== ENCOUNTER 2021-07-07 02:57 | Outpatient (CLI) | payer MEDICARE, OTHER, SELFPAY ==
--- NOTE | 2021-07-11 13:33 | W.PFT ---
Date of service: 07/07/21 Time of Service: 15:11 Pulmonary Function Test Result Requesting Provider Duchene Indications: Neuromuscular respiratory weakness Interpretation Spirometry: There is no airflow limitation. There is a significant decrease in vital capacity with laying supine versus when seated. Impression Significant decline in FVC when supine versus seated. Note: When compared to 08/30/2020 the FVC has increased. Clinical Correlation therefore is recommended.
== END 2021-07-07 02:58 | disposition home or self-care (01) ==
LOC: RT 02:58
PROVIDERS: PCP Family Medicine; Visit Provider Student in an Organized Health Care Education/Training Program
DX: G70.89 Other specified myoneural disorders (principal); J98.8 Other specified respiratory disorders; R94.2 Abnormal results of pulmonary function studies
CPT/HCPCS: 94010

== ENCOUNTER 2021-07-11 15:03 | Outpatient (CLI) | payer MEDICARE, OTHER, SELFPAY ==
--- NOTE | 2021-07-11 15:06 | W.CCNOTE ---
Date of service: 07/11/21 Time of Service: 15:06 [facility] Note Note: Bill here here only for a flu shot. he is feeling well. T: 97.6, P: &4, R: 14, BP: 126/84 GSK Fluarix 0.5ml IM RA - Lot # [id number] - exp: 03/16/2021 Loulou Guzmán NP
== END 2021-07-11 15:04 | disposition home or self-care (01) ==
LOC: CCC 15:04
PROVIDERS: PCP Family Medicine; Visit Provider Nurse Practitioner Family
DX: Z23 Encounter for immunization (principal); B20 Human immunodeficiency virus [HIV] disease; Z79.899 Other long term (current) drug therapy
CPT/HCPCS: 90471; 90686

== ENCOUNTER 2021-10-25 01:59 | Outpatient (CLI) | payer MEDICARE, OTHER, SELFPAY ==
[2021-10-25 07:31] LABS: Abs Immature Grans 0.01 10^3/uL (0.0-0.06); Absolute Basophil Count 0.04 10^3/uL (0.0-0.2); Absolute Eosinophil Count 0.33 10^3/uL (0.0-0.7); Absolute Lymphocyte Count 2.32 10^3/uL (1.2-3.4); Absolute Monocyte Count 0.62 10^3/uL (0.1-0.8); Absolute Neutrophil Count 3.34 10^3/uL (1.2-6.7); Basophils % 0.6; HCT 45.5 % (40.0-50.0); HGB 15.2 g/dL (13.5-17.5); Immature Grans % 0.2; Lymphocytes % 34.8; MCH 32.5 pg (27.0-33.0); MCHC 33.4 % (32.0-36.0); MCV 97.2 fL (80-95); Monocytes % 9.3; Neutrophils % 50.1; Nucleated RBC 0 %; Platelet Count 111 10^3/uL (130-400); RBC 4.68 10^6/uL (4.36-5.78); RDW 12.4 % (11.8-14.1); RDW-SD 44.5 fL; WBC 6.66 10^3/uL (4.4-10.8)
[2021-10-25 08:17] LABS: ALT 29 U/L (16-63); AST 21 U/L (15-37); Albumin 3.8 g/dL (3.4-5.0); Alkaline Phosphatase 73 U/L (46-116); Anion Gap 9.4 mmol/L (3-11); BUN 23 mg/dL (7-18); Bilirubin, Total 1.4 mg/dL (0.2-1.0); CO2 27.6 mmol/L (21.0-32.0); CREATININE 1.4 mg/dL (0.70-1.30); Calcium 8.9 mg/dL (8.5-10.1); Chloride 106 mmol/L (98-107); Estimated GFR 49.96 (mL/min/1.73m2); Glucose 113 mg/dL (74-106); Potassium 4.5 mmol/L (3.5-5.1); Sodium 143 mmol/L (136-145); Total Protein 6.6 g/dL (6.4-8.2)
[2021-10-27 12:17] LABS: HIV 1 RNA Qualitative Detected copies/mL (Undetected); HIV 1 RNA Quantitative <20 copies/mL (Undetected)
[2021-10-27 16:43] LABS: 4/8 Ratio 1.14 (>=0.90); Absolute CD3 1980 Cells/uL (840-2,669); Absolute CD8 919 Cells/uL (154-1,097); CD3 71 % (56-84); CD4 38 % (31-64); CD8 33 % (9-39)
== END 2021-10-25 02:00 | disposition home or self-care (01) ==
LOC: LBO 01:59
PROVIDERS: PCP Family Medicine; Visit Provider Nurse Practitioner Family
DX: B20 Human immunodeficiency virus [HIV] disease (principal); Z79.899 Other long term (current) drug therapy
CPT/HCPCS: 36415; 80053; 87536; 85025; 86359; 86360

== ENCOUNTER 2022-06-07 03:26 | Outpatient (CLI) | payer MEDICARE, OTHER, SELFPAY ==
[2022-06-07 12:26] LABS: Abs Immature Grans 0.01 10^3/uL (0.0-0.06); Absolute Basophil Count 0.05 10^3/uL (0.0-0.2); Absolute Eosinophil Count 0.25 10^3/uL (0.0-0.7); Absolute Lymphocyte Count 1.88 10^3/uL (1.2-3.4); Absolute Monocyte Count 0.43 10^3/uL (0.1-0.8); Absolute Neutrophil Count 3.48 10^3/uL (1.2-6.7); Basophils % 0.8; Eosinophils % 4.1; HCT 44.5 % (40.0-50.0); HGB 15.1 g/dL (13.5-17.5); Immature Grans % 0.2; Lymphocytes % 30.8; MCH 33.3 pg (27.0-33.0); MCHC 33.9 % (32.0-36.0); MCV 98 fL (80-95); MPV 12.4 fL (8.0-11.0); Neutrophils % 57.1; Platelet Count 106 10^3/uL (130-400); RBC 4.53 10^6/uL (4.36-5.78); RDW 12.6 % (11.8-14.1); RDW-SD 45.2 fL
[2022-06-07 12:59] LABS: ALT 25 U/L (16-63); AST 24 U/L (15-37); Albumin 3.5 g/dL (3.4-5.0); Alkaline Phosphatase 84 U/L (46-116); Anion Gap 7.3 mmol/L (3-11); BUN 18 mg/dL (7-18); CO2 27.7 mmol/L (21.0-32.0); CREATININE 1.2 mg/dL (0.70-1.30); Calcium 8.8 mg/dL (8.5-10.1); Chloride 105 mmol/L (98-107); Estimated GFR 64.65 (mL/min/1.73m2); Glucose 109 mg/dL (74-106); NT-proBNP 324 pg/mL (<300); Potassium 4.4 mmol/L (3.5-5.1); Sodium 140 mmol/L (136-145); Total Protein 6.9 g/dL (6.4-8.2)
[2022-06-07 13:31] LABS: Ferritin 192 ng/mL (26-388)
[2022-06-08 11:36] LABS: HIV 1 RNA Qualitative Detected copies/mL (Undetected); HIV 1 RNA Quantitative 23 copies/mL (Undetected)
[2022-06-08 16:39] LABS: 4/8 Ratio 1.82 (>=0.90); Absolute CD3 1516 Cells/uL (840-2,669); Absolute CD8 520 Cells/uL (154-1,097); CD3 76 % (56-84); CD4 50 % (31-64); CD8 26 % (9-39)
== END 2022-06-07 03:27 | disposition home or self-care (01) ==
LOC: LOS 03:26
PROVIDERS: PCP Family Medicine; Visit Provider Nurse Practitioner Family
DX: B20 Human immunodeficiency virus [HIV] disease (principal); Z79.899 Other long term (current) drug therapy
CPT/HCPCS: 36415; 80053; 87536; 82728; 83880; 85025; 86359; 86360

== ENCOUNTER 2022-07-04 03:57 | Outpatient (CLI) | payer MEDICARE, OTHER, SELFPAY ==
--- NOTE | 2022-07-04 13:00 | RT.PFT_ITS ---
The report has been sent as a scanned image. This report serves to complete the order.
[2022-07-04] MEDS: Inhaler, Assist Device 1 EACH MC (14:26)
[2022-07-04] MEDS: Albuterol HFA 18 GM 200 PUFF INH IH (14:26)
--- NOTE | 2022-07-07 10:30 | W.PFT ---
Date of service: 07/04/22 Time of Service: 13:01 Pulmonary Function Test Result Requesting Provider Duchene Indications: Neuromuscular weakness Interpretation Spirometry: There is no airflow limitation. There is restrictive appearing spirometry. No significant bronchodilator response. MIP is normal, MEP is decreased. Lung Volumes: There is mild restrictive lung disease. Diffusion Capacity: There is normal diffusion. Airway Pressure: Normal airways resistance. Impression Mild restrictive lung disease with a normal diffusion. MIP and normal but there is a low MEP. This could represent neuromuscular related restriction, however the clinical significance of an isolated low MEP is not well defined. Note: When compared to 1 year ago there is a significant decreased in FVC. Clinical Correlation therefore is recommended.
== END 2022-07-04 03:58 | disposition home or self-care (01) ==
LOC: RT 03:57
PROVIDERS: PCP Family Medicine; Visit Provider Student in an Organized Health Care Education/Training Program
DX: J98.4 Other disorders of lung (principal); J99 Respiratory disorders in diseases classified elsewhere; G70.89 Other specified myoneural disorders
CPT/HCPCS: 94060; 94726; 94729

== ENCOUNTER 2022-07-17 14:00 | Outpatient (RCR) | payer MEDICARE, OTHER, SELFPAY | END 2022-07-17 23:59 | disposition home or self-care (01) | LOC: PRC 14:00 | PROVIDERS: PCP Family Medicine; Visit Provider Student in an Organized Health Care Education/Training Program | DX: G70.9 Myoneural disorder, unspecified (principal) | CPT/HCPCS: 94626 ==

== ENCOUNTER 2022-08-14 14:19 | Outpatient (RCR) | payer MEDICARE, OTHER, SELFPAY | END 2022-08-16 23:59 | disposition home or self-care (01) | LOC: PRC 14:19 | PROVIDERS: PCP Family Medicine; Visit Provider Student in an Organized Health Care Education/Training Program | DX: J99 Respiratory disorders in diseases classified elsewhere (principal) | CPT/HCPCS: 94626 ==

== ENCOUNTER 2022-09-06 13:30 | Outpatient (RCR) | payer MEDICARE, OTHER, SELFPAY ==
--- NOTE | 2022-09-19 12:41 | W.PFT ---
Date of service: 08/16/22 Time of Service: 14:51 Pulmonary Function Test Result Requesting Provider Duchene Indications: Post-pulmonary rehab Interpretation Spirometry: There is no airflow limitation. Impression Normal spirometry Note: When compared to 07/04/22, there has been improvement in both FEV1 and FVC Clinical Correlation therefore is recommended.
== END 2022-09-16 23:59 | disposition home or self-care (01) ==
LOC: PRC 13:30
PROVIDERS: PCP Family Medicine; Visit Provider Student in an Organized Health Care Education/Training Program
DX: G70.89 Other specified myoneural disorders (principal); Z51.89 Encounter for other specified aftercare
CPT/HCPCS: 94626

== ENCOUNTER 2022-11-01 01:57 | Outpatient (CLI) | payer MEDICARE, OTHER, SELFPAY ==
[2022-11-01 15:30] LABS: Abs Immature Grans 0.01 10^3/uL (0.0-0.06); Absolute Basophil Count 0.05 10^3/uL (0.0-0.2); Absolute Eosinophil Count 0.24 10^3/uL (0.0-0.7); Absolute Lymphocyte Count 2.09 10^3/uL (1.2-3.4); Absolute Monocyte Count 0.62 10^3/uL (0.1-0.8); Absolute Neutrophil Count 3.96 10^3/uL (1.2-6.7); Basophils % 0.7; Eosinophils % 3.4; HGB 15.4 g/dL (13.5-17.5); Immature Grans % 0.1; MCH 32.4 pg (27.0-33.0); MCHC 33.5 % (32.0-36.0); MCV 97 fL (80-95); MPV 10.9 fL (8.0-11.0); Monocytes % 8.9; Neutrophils % 56.9; Platelet Count 103 10^3/uL (130-400); RBC 4.75 10^6/uL (4.36-5.78); RDW 12.4 % (11.8-14.1); RDW-SD 44.9 fL; WBC 6.97 10^3/uL (4.4-10.8)
[2022-11-01 16:07] LABS: ALT 23 U/L (16-63); AST 19 U/L (15-37); Alkaline Phosphatase 79 U/L (46-116); Anion Gap 7.4 mmol/L (3-11); BUN 15 mg/dL (7-18); Bilirubin, Total 1.2 mg/dL (0.2-1.0); CO2 29.6 mmol/L (21.0-32.0); CREATININE 1.3 mg/dL (0.70-1.30); Calcium 8.8 mg/dL (8.5-10.1); Calculated LDL 37 mg/dL (<100); Chloride 106 mmol/L (98-107); Cholesterol 113 mg/dL (<200); Estimated GFR 58.37 (mL/min/1.73m2); Glucose 155 mg/dL (74-106); HDL Cholesterol 52 mg/dL (40-60); Potassium 4.1 mmol/L (3.5-5.1); Sodium 143 mmol/L (136-145); Total Protein 7.1 g/dL (6.4-8.2); Triglyceride 123 mg/dL (<150)
[2022-11-02 17:51] LABS: PSA, Diagnostic 2.3 ng/mL (<=6.5)
[2022-11-03 16:39] LABS: 4/8 Ratio 1.55 (>=0.90); Absolute CD3 1560 Cells/uL (840-2669); Absolute CD8 612 Cells/uL (154-1097); CD3 72 % (56-84); CD4 44 % (31-64); CD8 28 % (9-39)
[2022-11-06 14:03] LABS: HIV 1 RNA Qualitative Detected copies/mL (Undetected); HIV 1 RNA Quantitative <20 copies/mL (Undetected)
== END 2022-11-01 01:58 | disposition home or self-care (01) ==
LOC: LBO 01:58
PROVIDERS: PCP Family Medicine; Visit Provider Nurse Practitioner Family
DX: G70.9 Myoneural disorder, unspecified (principal); J99 Respiratory disorders in diseases classified elsewhere; M19.90 Unspecified osteoarthritis, unspecified site; N40.0 Benign prostatic hyperplasia without lower urinary tract symptoms; R09.02 Hypoxemia; I10 Essential (primary) hypertension; B20 Human immunodeficiency virus [HIV] disease; Z79.899 Other long term (current) drug therapy
CPT/HCPCS: 36415; 80053; 80061; 85027; 87389; 87536; 84153; 85025; 86359; 86360

== ENCOUNTER 2022-12-12 09:41 | Outpatient (CLI) | payer MEDICARE, OTHER, SELFPAY ==
--- NOTE | 2022-12-12 09:41 | RT.EKG_ITS ---
APPROVED REPORT Exam: Resting ECG Reason for Exam: Surgery scheduled 12/27/22 Patient Location: O HR:67 bpm ECG Measurements Heart Rate 67 AXIS NE 195 P 23 QRSd 137 QRS 3 QT 432 T 123 QTc 456 Conclusion Sinus rhythm...normal P axis, V-rate 50- 99 Left bundle branch block...QRSd>120, broad/notched R
== END 2022-12-12 09:42 | disposition home or self-care (01) ==
LOC: DI.CM 09:42
PROVIDERS: PCP Family Medicine; Visit Provider Family Medicine
DX: Z01.818 Encounter for other preprocedural examination (principal); I44.7 Left bundle-branch block, unspecified
CPT/HCPCS: 93010

== ENCOUNTER 2023-05-17 02:19 | Outpatient (CLI) | payer MEDICARE, OTHER, SELFPAY ==
[2023-05-17 16:21] LABS: HCT 43.2 % (40.0-50.0); HGB 15.2 g/dL (13.5-17.5); MCH 33.3 pg (27.0-33.0); MCHC 35.2 % (32.0-36.0); MCV 95 fL (80-95); MPV 11.1 fL (8.0-11.0); Platelet Count 117 10^3/uL (130-400); RBC 4.56 10^6/uL (4.36-5.78); RDW 12.1 % (11.8-14.1); RDW-SD 42.8 fL; WBC 8.78 10^3/uL (4.4-10.8)
[2023-05-21 11:45] LABS: HIV 1 RNA Qualitative Detected copies/mL (Undetected); HIV 1 RNA Quantitative <20 copies/mL (Undetected)
== END 2023-05-17 02:20 | disposition home or self-care (01) ==
LOC: LBO 02:19
PROVIDERS: PCP Family Medicine; Visit Provider Nurse Practitioner Family
DX: B20 Human immunodeficiency virus [HIV] disease (principal); Z79.899 Other long term (current) drug therapy
CPT/HCPCS: 36415; 85027; 87536

== ENCOUNTER → 2023-06-25 14:14 | Outpatient (BNVA) | payer MEDICARE, OTHER, SELFPAY | PROVIDERS: PCP Family Medicine; Referring Provider Family Medicine; Visit Provider Physician Assistant Surgical | DX: G70.9 Myoneural disorder, unspecified (principal); J99 Respiratory disorders in diseases classified elsewhere; B20 Human immunodeficiency virus [HIV] disease | CPT/HCPCS: 99214 ==

== ENCOUNTER 2023-10-11 09:10 | Outpatient (CLI) | payer MEDICARE, OTHER, SELFPAY ==
[2023-10-11 12:20] LABS: HCT 47.8 % (40.0-50.0); HGB 16.3 g/dL (13.5-17.5); MCH 32.9 pg (27.0-33.0); MCHC 34.1 % (32.0-36.0); MCV 97 fL (80-95); MPV 12.2 fL (8.0-11.0); Platelet Count 124 10^3/uL (130-400); RBC 4.95 10^6/uL (4.36-5.78); RDW 12.8 % (11.8-14.1); RDW-SD 45.2 fL; WBC 6.54 10^3/uL (4.4-10.8)
[2023-10-11 12:39] LABS: ALT 29 U/L (16-63); AST 25 U/L (15-37); Albumin 3.9 g/dL (3.4-5.0); Alkaline Phosphatase 78 U/L (46-116); Anion Gap 6.2 mmol/L (3-11); BUN 19 mg/dL (7-18); Bilirubin, Total 1.7 mg/dL (0.2-1.0); CO2 31.8 mmol/L (21.0-32.0); CREATININE 1.3 mg/dL (0.70-1.30); Calcium 9.2 mg/dL (8.5-10.1); Calculated LDL 48 mg/dL (<100); Chloride 104 mmol/L (98-107); Cholesterol 119 mg/dL (<200); Estimated GFR 58.01 (mL/min/1.73m2); Glucose 130 mg/dL (74-106); HDL Cholesterol 57 mg/dL (40-60); Potassium 4.2 mmol/L (3.5-5.1); Sodium 142 mmol/L (136-145); Total Protein 7.7 g/dL (6.4-8.2); Triglyceride 70 mg/dL (<150)
[2023-10-11 18:26] LABS: PSA, Diagnostic 3.4 ng/mL (<=6.5)
[2023-10-12 12:43] LABS: Lab Add On Test DONE
[2023-10-12 13:07] LABS: Hemoglobin A1C 5.9 % (<5.7)
== END 2023-10-11 09:11 | disposition home or self-care (01) ==
LOC: LOS 09:11
PROVIDERS: PCP Family Medicine; Visit Provider Family Medicine
DX: I10 Essential (primary) hypertension (principal); B20 Human immunodeficiency virus [HIV] disease; N40.0 Benign prostatic hyperplasia without lower urinary tract symptoms; E11.9 Type 2 diabetes mellitus without complications
CPT/HCPCS: 36415; 80053; 80061; 85027; 83036; 84153

== ENCOUNTER 2023-10-24 02:38 | Outpatient (CLI) | payer MEDICARE, OTHER, SELFPAY ==
--- OUTSIDE RECORDS SUMMARY | 2023-10-24 02:42 | XMS_ITS | CCD ---
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 Allergies Allergy Code Allergy Type Reaction Status No Known Drug Allergies 0 No known drug allergies Active Procedures Unknown or Not Available. History of Immunizations Unknown or Not Available. Problems Unknown or Not Available. Results Unknown or Not Available. Active Medications Unknown or Not Available. Medications Administered During Visit Unknown or Not Available. Encounters Encounter Diagnosis Diagnosis Code Start Date Artificial knee joint present [id number] Social History Smoking Status Code Start Date End Date Former smoker [id number] Patient Decision Aids Unknown or Not Available. Discharge Instructions You were admitted to [facility] on 09/26/2021 12:13 with a principal diagnosis of Presence of left artificial knee joint You were discharged from [facility] on 09/26/2021 00:00 Should you have any questions prior to discharge, please contact a member of your healthcare team. If you have left the hospital and have any questions, please contact your primary care physician. Chief Complaint and Reason For Visit Unknown or Not Available. Function Status Unknown or Not Available. Plan of Care Unknown or Not Available. Referral/Transition of Care Unknown or Not Available.
[2023-10-24 09:07] LABS: Abs Immature Grans 0.03 10^3/uL (0.0-0.06); Absolute Basophil Count 0.04 10^3/uL (0.0-0.2); Absolute Eosinophil Count 0.29 10^3/uL (0.0-0.7); Absolute Lymphocyte Count 1.78 10^3/uL (1.2-3.4); Absolute Monocyte Count 0.46 10^3/uL (0.1-0.8); Basophils % 0.6; Eosinophils % 4.5; HCT 45.6 % (40.0-50.0); HGB 15.7 g/dL (13.5-17.5); Immature Grans % 0.5; Lymphocytes % 27.8; MCH 32.9 pg (27.0-33.0); MCHC 34.4 % (32.0-36.0); MCV 96 fL (80-95); MPV 10.8 fL (8.0-11.0); Monocytes % 7.2; Neutrophils % 59.4; Platelet Count 165 10^3/uL (130-400); RBC 4.77 10^6/uL (4.36-5.78); RDW 12.3 % (11.8-14.1); RDW-SD 43.9 fL
[2023-10-24 09:24] LABS: ALT 39 U/L (16-63); AST 21 U/L (15-37); Albumin 3.7 g/dL (3.4-5.0); Alkaline Phosphatase 75 U/L (46-116); Anion Gap 6.8 mmol/L (3-11); BUN 15 mg/dL (7-18); CO2 31.2 mmol/L (21.0-32.0); CREATININE 1.3 mg/dL (0.70-1.30); Calcium 9.3 mg/dL (8.5-10.1); Chloride 105 mmol/L (98-107); Estimated GFR 58.01 (mL/min/1.73m2); Glucose 145 mg/dL (74-106); Potassium 4.6 mmol/L (3.5-5.1); Sodium 143 mmol/L (136-145); Total Protein 7.2 g/dL (6.4-8.2)
[2023-10-24 15:31] LABS: Lab Add On Test DONE
[2023-10-24 16:19] LABS: Vitamin B12 564 pg/mL (193-986)
[2023-10-25 11:50] LABS: HIV 1 RNA Qualitative Detected copies/mL (Undetected); HIV 1 RNA Quantitative 47 copies/mL (Undetected)
[2023-10-25 17:00] LABS: 4/8 Ratio 1.49 (>=0.90); Absolute CD3 1432 Cells/uL (840-2669); Absolute CD8 572 Cells/uL (154-1097); CD3 69 % (56-84); CD4 41 % (31-64); CD8 28 % (9-39)
== END 2023-10-24 02:39 | disposition home or self-care (01) ==
LOC: LBO 02:38
PROVIDERS: PCP Family Medicine; Visit Provider Nurse Practitioner Family
DX: B20 Human immunodeficiency virus [HIV] disease (principal); R71.8 Other abnormality of red blood cells
CPT/HCPCS: 36415; 80053; 87536; 82607; 85025; 86359; 86360

== ENCOUNTER → 2023-11-26 10:15 | Outpatient (BNVA) | payer MEDICARE, OTHER, SELFPAY | PROVIDERS: PCP Family Medicine; Referring Provider Family Medicine; Visit Provider Physician Assistant Surgical | DX: B20 Human immunodeficiency virus [HIV] disease (principal); G70.9 Myoneural disorder, unspecified; J99 Respiratory disorders in diseases classified elsewhere; J32.9 Chronic sinusitis, unspecified | CPT/HCPCS: 99214 ==

== ENCOUNTER → 2023-12-28 13:55 | Outpatient (BNVA) | payer MEDICARE, OTHER, SELFPAY | PROVIDERS: PCP Family Medicine; Referring Provider Family Medicine; Visit Provider Student in an Organized Health Care Education/Training Program | DX: G70.9 Myoneural disorder, unspecified (principal); J99 Respiratory disorders in diseases classified elsewhere; B20 Human immunodeficiency virus [HIV] disease | CPT/HCPCS: 99214 ==

== ENCOUNTER 2024-01-08 05:20 | Outpatient (CLI) | payer MEDICARE, OTHER, SELFPAY ==
[2024-01-08] MEDS: Albuterol HFA 18 GM 200 PUFF INH IH (12:03)
[2024-01-08] MEDS: Methacholine 100 MG VIAL IH (12:03)
[2024-01-08] MEDS: Inhaler, Assist Device 1 EACH MC (12:03)
--- NOTE | 2024-01-08 14:17 | W.PFT ---
Date of service: 01/08/24 Time of Service: 10:06 Pulmonary Function Test Result Indications: Neuromuscular weakness Interpretation Spirometry: No airflow limitation. FEV1 decreased by 21% with administration of 1.0mg/mL. Normal MIP and MEP. Lung Volumes: Normal lung volumes Diffusion Capacity: Normal diffusion Airway Pressure: Normal airways resistance Impression Normal baseline pulmonary function and muscle pressures. Positive methacholine challenge. Clinical Correlation therefore is recommended.
== END 2024-01-08 05:21 | disposition home or self-care (01) ==
LOC: RT 05:20
PROVIDERS: PCP Family Medicine; Visit Provider Student in an Organized Health Care Education/Training Program
DX: J99 Respiratory disorders in diseases classified elsewhere (principal); G70.9 Myoneural disorder, unspecified
CPT/HCPCS: 94060; 94070; 94726; 94729; 94010; J7674

== ENCOUNTER 2024-05-12 16:59 | Outpatient (CLI) | payer MEDICARE, OTHER, SELFPAY ==
[2024-05-12 16:59] LABS: Abs Immature Grans 0.03 10^3/uL (0.0-0.06); Absolute Basophil Count 0.05 10^3/uL (0.0-0.2); Absolute Eosinophil Count 0.15 10^3/uL (0.0-0.7); Absolute Lymphocyte Count 1.35 10^3/uL (1.2-3.4); Absolute Monocyte Count 0.58 10^3/uL (0.1-0.8); Absolute Neutrophil Count 6.18 10^3/uL (1.2-6.7); Basophils % 0.6 %; Eosinophils % 1.8 %; HCT 43.6 % (40.0-50.0); HGB 14.8 g/dL (13.5-17.5); Immature Grans % 0.4 %; Lymphocytes % 16.2 %; MCH 33.7 pg (27.0-33.0); MCHC 33.9 % (32.0-36.0); MCV 99 fL (80-95); MPV 11.3 fL (8.0-11.0); Platelet Count 122 10^3/uL (130-400); RBC 4.39 10^6/uL (4.36-5.78); RDW 12.4 % (11.8-14.1); RDW-SD 45.1 fL; WBC 8.34 10^3/uL (4.4-10.8)
--- OUTSIDE RECORDS SUMMARY | 2024-05-12 17:03 | XMS_ITS | Encounter Summary ---
Author Name [facility] [place] Organization [facility] [place] [facility] [place] Address [address] [place] [address] Care Team Providers Care Varitypist Name Role Phone DESIREE BRADLEY Primary Care Provider ANGELINA Gracia Unavailable Unavailable Insurance Providers: All historical and current Section Date Range: From patient's date of to the date document was created. This section includes the names of all active insurance providers for the patient. Insurance Provider Type of Coverage Plan Name Start of Policy Coverage End of Policy Coverage Group Number Member ID Insurance Provider's Telephone Number Policy Longoria's Name Patient's Relationship to Policy Longoria MEDICARE (WNR) MEDICARE (M) PART A Jul 18, 2015 PART A [id number] [facility] BRENDON CHEUNGYESSENIA PATIENT MEDICARE (WNR) MEDICARE (M) PART B Jul 18, 2015 PART B [id number] [facility] BRENDON CHEUNG [place]AK[place] PATIENT [facility] MEDICAID MEDIC AID Jun 17, 2010 MEDICAI D [id number] BRENDON CHEUNG PATIENT [employer] MEDICARE SUPPLEMEN DILSHAD PLAN F May 01, 2017 PLAN F [id number] BRENDON CHEUNG PATIENT Selected Encounter This section includes the information on record at [place] for the Encounter. Date/Time Encounter Type Encounter Description Reason Provider Source Oct 29, 2023 02:30 PM OFFICE O/P EST MOD 30 MIN PRIMARY CARE/MEDICINE ICD-10-CM R06.00 Dyspnea, unspecified JAC,ONIEL MOHINIJeet IHE Encounter Template Text not used by [place] Assessments - Encounter Diagnoses This section includes the primary and secondary diagnoses documented for the Encounter. Date/Time Primary/Secondary Diagnosis Diagnosis Name Provider Source Oct 29, 2023 06:39 PM PRIMARY Dyspnea, unspecified ANGELINA JONES [facility] Oct 29, 2023 06:39 PM SECONDARY Encounter for immunization MELISSA SOUSA [facility] Oct 29, 2023 06:39 PM SECONDARY Human immunodeficiency virus [HIV] disease ANGELINA JONES [facility] Plan of Treatment: Future Appointments (+ 6 months) and Future Tests (+/- 45 days) The Plan of Treatment section includes future care activities for the patient from [facility] [place] [facility] This section includes future appointments and future orders which are active, pending or scheduled. Future Appointments This section includes appointments that were scheduled to occur 6 months from the date of the Encounter, up to a maximum of 20 appointments. The data comes from all [place] treatment facilities. Appointment Date/Time Appointment Type Appointme nt Facility Name Nov 13, 2023 10:00 AM AMBULATORY - REHAB MEDICIN E [facility] Dec 05, 2023 09:00 AM AMBULATORY - REHAB MEDICIN E [facility] Dec 27, 2023 10:00 AM AMBULATORY - SURGERY [facility] February 06, 2024 11:30 AM AMBULATORY - REHAB MEDICIN E [facility] Vital Signs: All taken on the encounter date This section contains inpatient and outpatient Vital Signs collected on the date of the Encounter. Date/Time Temperature Pulse Blood Pressure Respiratory Rate SP02 Pain Height Weight Body Mass Index Source Oct 29, 2023 02:34 PM 151/67 [facility] Oct 29, 2023 02:34 PM 97.7 65 155/67 18 96 0 202 33 [facility] Immunizations: All administered on the encounter date This section contains immunizations associated to the Encounter. Immunization Series Date Issued Reaction Comments RSV, BIVALENT, PROTEIN SUBUN IT RSVPREF, DILUENT RECONSTITUTED, 0.5 ML, PF Oct 29, 2023 Social History: Smoking Status (Most current) and Tobacco Use (All prior to encounter date) This section includes the most current, and the historical, smoking and tobacco- related health factors from the [place] facility where the Encounter took place. Current Smoking Status This section includes the most current smoking, or tobacco-related health factor, from the [place] facility where the Encounter took place. Date/Time Current Smoking Status Comment Brianna ity Apr 25, 2023 01:30 PM VA-TOBACCO QUIT 15 YRS OR MORE [place] [facility] Tobacco Use History This section includes a history of the smoking, or tobacco-related health factors, that were collected on or before the date of the Encounter. The data comes from the [place] facility where the Encounter took place. Date/Time Smoking Status/Tobacco Use Comment F acility Apr 25, 2023 01:30 PM VA-TOBACCO QUIT 15 YRS OR MORE [place] [facility] Aug 03, 2021 10:30 AM VA-TOBACCO NEVER USED [place] [facility] May 10, 2020 03:00 PM VA-TOBACCO FORMER USER [place] [facility] May 10, 2020 03:00 PM VA-TOBACCO QUIT 15 YRS OR MORE [place] [facility] Apr 16, 2019 12:07 PM VA-TOBACCO FORMER USER [place] [facility] Apr 16, 2019 12:07 PM VA-TOBACCO QUIT 15 YRS OR MORE [facility] [place] Jan 04, 2018 09:53 AM QUIT TOBACCO USE > 7 YEARS AGO [facility] [place] [facility] Dec 21, 2016 09:33 AM QUIT TOBACCO USE > 7 YEARS AGO [place] [facility] Oct 29, 2015 08:35 AM QUIT TOBACCO USE > 7 YEARS AGO [place] [facility] Jan 09, 2011 10:18 AM QUIT TOBACCO USE > 7 YEARS AGO 10 Years [place] [facility] Encounter Notes: All associated encounter notes This section contains the clinical notes associated to the Encounter. Date/Time Encounter Note(s) Provider Source Nov 12, 2023 05:32 PM NONVA NOTE: LOCAL TITLE: NonVA Medical Records STANDARD TITLE: NONVA NOTE DATE OF NOTE: NOV 12, 2023@17:32 ENTRY DATE: NOV 12, 2023@17:32:25 AUTHOR: ANGELINA JONES EXP COSIGNER: DESIREE BRADLEY URGENCY: STATUS: COMPLETED Records from [facility] received Updated problem list with LBBB HIV diagnosed 2018 [facility] expressed concern about weight gain. Notably his weight has increased ~30 lbs since his HIV diagnosis in 2019. Plan to address at next appointment if he is interested in MOVE program if weight remains elevated. Otherwise, he gets his primary care at a [facility] provider. /linda/ ANGELINA JONES Resident Physician Signed: 11/12/2023 17:39 /linda/ DESIREE BRADLEY Physician Cosigned: 11/13/2023 07:58 ANGELINA JONES [facility] Oct 29, 2023 06:42 PM ADDENDUM: LOCAL TITLE: Addendum STANDARD TITLE: ADDENDUM DATE OF NOTE: OCT 29, 2023@18:42 ENTRY DATE: OCT 29, 2023@18:43:03 AUTHOR: ANGELINA JONES EXP COSIGNER: DARREN NATHAN URGENCY: STATUS: COMPLETED Hello, I was hoping you could help me obtain some records from other providers on this patient. Past year of office notes and most recent CBC from his community care PCP: Dr. Lorrie Conte [address] [address] Past year of office notes, most recent chest CT, and most recent pulmonary function test from his community care validation consultant Evie France MD Pulmonology [address] [place] [id number] Past year of office notes from [facility] infectious disease and past year of [facility] cardiology office notes along with most recent transthoracic echocardiogram. [facility] Medical records office: Phone number [phone]. Fax number [phone]. Infectious Disease Office: Cardiology office Thank you! /renetta JONES Resident Physician Signed: 10/29/2023 18:47 /linda/ ADRREN Ceballos MD Cosigned: 10/30/2023 12:34 Receipt Acknowledged By: 11/02/2023 08:46 /linda/ CARLO HERNANDEZ --- Original Document --- 10/29/23 Primary Care Clinic Note: CHIEF COMPLAINT: Routine clinical visit HPI: NATASHA CHEUNG is a 73 year old MALE with a history of HIV and thrombocytopenia who presents today for continuation of care at [facility] and to discuss the RSV vaccine Most recent CD4 from [facility] (patient checked his portal) 855, HIV 1 quant 47 Dyspnea of unknown etiology. Follows with [facility] validation consultant Has trilogy machine at home and uses it except when on vacation Wants to get RSV vaccine today Had COVID-19 two weeks. Had sore throat, congestion that lasted symptoms lasted 5 days. Symptoms currently resolved and has tested negative ROS: - CONSTITUTIONAL: Denies weight loss, fever and chills. - HEENT: Denies changes in vision and hearing. - NEUROLOGICAL: Denies headache and syncope. - RESPIRATORY: Denies change in baseline SOB and cough. - CV: Denies palpitations and CP. - GI: Denies abdominal pain, nausea, vomiting and diarrhea, constipation - : Denies dysuria and urinary frequency. - MSK: Denies myalgia and joint pain. - SKIN: Denies rash and pruritus. - ENDOCRINE: Denies heat/cold intolerance, polydipsia - PSYCHIATRIC: Denies recent changes in mood. Denies anxiety and depression. PMHx: Active problems - Computerized Problem List is the source for the followin. Exposure to potentially hazardous substance 2. HIV - Human Immunodeficiency Virus Infection ([facility] [id number]) 3. Uveitis (SNOMED CT 338735418) 4. Thrombocytopenia 5. Sensorineural hearing loss (SNOMED CT 01992921) MEDICATIONS: Active Outpatient Medications (excluding Supplies): Active Non-VA Medications Status 1) Non-VA ASPIRIN 81MG EC TAB 81MG BY MOUTH EVERY DAY ACTIVE 2) Non-VA ATORVASTATIN CALCIUM 20MG TAB 20MG BY MOUTH ACTIVE ONCE DAILY 3) Non-VA BIKTARVY 50/200/25 TAB ONE TABLET BY MOUTH ACTIVE EVERY DAY 4) Non-VA BRIMONIDINE TARTRATE 0.15% OPH SOLN 1 DROP ACTIVE BOTH EYES TWICE A DAY 5) Non-VA MELATONIN 5MG CAP/TAB 5MG BY MOUTH AT BEDTIME ACTIVE 6) Non-VA PREDNISOLONE ACETATE 0.12% OPH SUSP 1 DROP ACTIVE LEFT EYE TWICE A DAY 7) Non-VA TAMSULOSIN HCL 0.4MG CAP 0.4MG BY MOUTH DAILY ACTIVE 8) Non-VA TIMOLOL MALEATE 0.5% OPH SOLN 1 DROP BOTH EYES ACTIVE TWICE A DAY ALLERGIES: ALLERGIES/ADVERSE REACTIONS - NONE FOUND SURGICAL HISTORY: Had open heart surgery to repair aortic valve 2018 w/ bovine valve Cataract surgery in both eyes done separately ~20 years ago L knee arthroplasty 2018 R rotator cuff repair 2012 Corneal transplant November 2022 FAMILY HISTORY: Father 81 of liver cancer, diabetes Mother 83 diabetes, Alzheimers Siblings: brother had throat cancer (heavy smoker), sister had cancer (not sure which) SOCIAL HISTORY: -Work: works at [employer] -Home: lives with older brother -Alcohol: drinks 2-4 drinks/month -Tobacco: quit 25 years. Smoked for one year < 1PPD -Recreational Drugs: none -Sexuality: heterosexual Physical Exam: -Vitals Date Vital Measurement Qualifiers 10/29/2023 14:34 BP 151/67 10/29/2023 14:34 Temp F (C) 97.7 (36.5) Pulse 65 Respir 18 Wt lbs (kg)[BMI] 202 (91.63)[33*] Pain 0 POx (L/Min)(%) 96 -General: Well developed, appears younger than stated age, NAD -Neurological: No gross focal neurological deficit -HEENT: NTNC -Respiratory: CTAB -Cardiovascular: RRR, no M/R/G, midline sternotomy scar -Abdominal: bowel sounds present, NTND, diastasis recta -Musculoskeletal: gait normal -Psych: Mood and affect appropriate ASSESSMENT AND PLAN: NATASHA CHEUNG is a 73 year old MALE with a history of HIV and thrombocytopenia who presents today for routine follow up and for RSV vaccine. Patient's primary request today is getting the RSV vaccine, as he was told by his [facility] PCP that they did not have it at their office. Given his age and dyspnea of uncertain etiology currently being followed by a validation consultant, he seems an appropriate candidate for getting the RSV vaccine. Will request records from his other providers. #HIV -Gets care at [facility] infectious disease -Cardiology at [facility] Plan: -Request records from [facility] Infectious Disease and Cardiology -Medical records office: Phone number [phone]. Fax number [phone]. Infectious Disease Office: Cardiology office #Dyspnea of unknown etiology -Follows with validation consultant Dr. Duncan in [facility], will request records Evie France MD Pulmonology [address] [place] [address], [address] [place], [place] [address] -RSV vaccine #PCP records #Thrombocytopenia Dr. Lorrie Conte [address] [address] RTC 1 year RSV vaccine required shared-decision making: He meets criteria based on age and medical history. He has never had an allergic reaction after a previous dose of RSV vaccine, or has any severe, life-threatening allergies. He is not ill at this time. Pt understands the risks of a vaccine reaction as follows: -Pain, redness, and swelling where the shot is given, fatigue (feeling tired),fever, headache, nausea, diarrhea, and muscle or joint pain can happen after RSV vaccination. -Serious neurologic conditions, including Guillain-Hereford syndrome (GBS), have been reported very rarely after RSV vaccination in clinical trials. It is unclear whether the vaccine caused these events. -As with any medicine, there is a very remote chance of a vaccine causing a severe allergic reaction, other serious injury, or . After discussing the risks and benefits and alternatives to the RSV vaccine, Mr. Cheung chooses to take the RSV vaccine. No additional questions at this time. Order entered for when / if he opts for the vaccine. /es/ ANGELINA JONES Resident Physician Signed: 10/29/2023 18:42 /linda/ DARREN Ceballos MD Cosigned: 10/30/2023 12:46 10/30/2023 ADDENDUM STATUS: COMPLETED I discussed this pt with Dr. Jones and agree with a/p as outlined above /linda/ DARREN Ceballos MD Signed: 10/30/2023 12:46 11/02/2023 ADDENDUM STATUS: UNSIGNED You may not VIEW this UNSIGNED Addendum. ANGELINA JONES [facility] Oct 29, 2023 03:22 PM NURSING IMMUNIZATI ON NOTE: LOCAL TITLE: IMMUNIZATION AND VACCINATION NOTE STANDARD TITLE: NURSING IMMUNIZATION NOTE DATE OF NOTE: OCT 29, 2023@15:22:26 ENTRY DATE: OCT 29, 2023@15:22:26 AUTHOR: MALENA SOUSA EXP COSIGNER: URGENCY: STATUS: COMPLETED Administered: RSV, BIVALENT, PROTEIN SUBUNIT RSVPREF, DILUENT RECONSTITUTED, 0.5 ML, PF Date Administered: Oct 29, 2023 14:30 Dispatcher Bus [employer]rol[employer]: [facility] Lot: [id number] Exp Date: Dec 15, 2024 ND: [id number] Admin Route/Site: INTRAMUSCULAR/LEFT DELTOID Dosage: 0.5mL Vaccine Information Statement(s): RSV (RESPIRATORY SYNCYTIAL VIRUS) VACCINE VIS Jul 05, 2023 (ALGERIAN) Order By: Darren Nathan Administered By: Malena Sousa /linda/ MALENA SOUSA RN Signed: 10/29/2023 15:23 MALENA SOUSA [facility] Oct 29, 2023 02:32 PM PRIMARY CARE FARIBA [place] EVALUATION NOTE: LOCAL TITLE: Preventive Health Annual Review STANDARD TITLE: PRIMARY CARE ANNUAL EVALUATION NOTE DATE OF NOTE: OCT 29, 2023@14:32 ENTRY DATE: OCT 29, 2023@14:32:51 AUTHOR: JUAN DANIEL TO EXP COSIGNER: URGENCY: STATUS: COMPLETED Advance Directive Screen MH AD: Patient does not have an Advance Directive completed and is requesting more information. A consult was sent to Social Work Services at this visit so that an appointment can be made with the patient to review the advance directive. The patient received education about Advance Directives and written notification of his/her rights. Homelessness/Food Insecurity Screen: In the past 2 months, have you been living in stable housing that you own, rent, or stay in as part of a household? Yes - Living in stable housing. Are you worried or concerned that in the next 2 months you may NOT have stable housing that you own, rent, or stay in as part of a household? No - Not worried about housing near future [facility] [place] reports the following: Within the past 12 months, you worried whether your food would run out before you got money to buy more. Never true Within the past 12 months, the food you bought just didn't last and you didn't have money to get more. Never true /es/ JUAN DANIEL TO skilled nursing facilities professional Signed: 10/29/2023 14:33 JUAN DANIEL TO [facility] Oct 29, 2023 12:18 PM PRIMARY CARE NOTE: LOCAL TITLE: Primary Care Clinic Note STANDARD TITLE: PRIMARY CARE NOTE DATE OF NOTE: OCT 29, 2023@12:18 ENTRY DATE: OCT 29, 2023@12:18:28 AUTHOR: ANGELINA JONES EXP COSIGNER: DARREN NATHAN URGENCY: STATUS: COMPLETED Primary Care Clinic Note Has ADDENDA CHIEF COMPLAINT: Routine clinical visit HPI: NATASHA CHEUNG is a 73 year old MALE with a history of HIV and thrombocytopenia who presents today for continuation of care at [facility] and to discuss the RSV vaccine Most recent CD4 from [facility] (patient checked his portal) 855, HIV 1 quant 47 Dyspnea of unknown etiology. Follows with [facility] validation consultant Has trilogy machine at home and uses it except when on vacation Wants to get RSV vaccine today Had COVID-19 two weeks. Had sore throat, congestion that lasted symptoms lasted 5 days. Symptoms currently resolved and has tested negative ROS: - CONSTITUTIONAL: Denies weight loss, fever and chills. - HEENT: Denies changes in vision and hearing. - NEUROLOGICAL: Denies headache and syncope. - RESPIRATORY: Denies change in baseline SOB and cough. - CV: Denies palpitations and CP. - GI: Denies abdominal pain, nausea, vomiting and diarrhea, constipation - : Denies dysuria and urinary frequency. - MSK: Denies myalgia and joint pain. - SKIN: Denies rash and pruritus. - ENDOCRINE: Denies heat/cold intolerance, polydipsia - PSYCHIATRIC: Denies recent changes in mood. Denies anxiety and depression. PMHx: Active problems - Computerized Problem List is the source for the followin. Exposure to potentially hazardous substance 2. HIV - Human Immunodeficiency Virus Infection ([facility] 49524813) 3. Uveitis (SNOMED CT 186648714) 4. Thrombocytopenia 5. Sensorineural hearing loss (SNOMED CT 98401163) MEDICATIONS: Active Outpatient Medications (excluding Supplies): Active Non-VA Medications Status 1) Non-VA ASPIRIN 81MG EC TAB 81MG BY MOUTH EVERY DAY ACTIVE 2) Non-VA ATORVASTATIN CALCIUM 20MG TAB 20MG BY MOUTH ACTIVE ONCE DAILY 3) Non-VA BIKTARVY 50/200/25 TAB ONE TABLET BY MOUTH ACTIVE EVERY DAY 4) Non-VA BRIMONIDINE TARTRATE 0.15% OPH SOLN 1 DROP ACTIVE BOTH EYES TWICE A DAY 5) Non-VA MELATONIN 5MG CAP/TAB 5MG BY MOUTH AT BEDTIME ACTIVE 6) Non-VA PREDNISOLONE ACETATE 0.12% OPH SUSP 1 DROP ACTIVE LEFT EYE TWICE A DAY 7) Non-VA TAMSULOSIN HCL 0.4MG CAP 0.4MG BY MOUTH DAILY ACTIVE 8) Non-VA TIMOLOL MALEATE 0.5% OPH SOLN 1 DROP BOTH EYES ACTIVE TWICE A DAY ALLERGIES: ALLERGIES/ADVERSE REACTIONS - NONE FOUND SURGICAL HISTORY: Had open heart surgery to repair aortic valve 2018 w/ bovine valve Cataract surgery in both eyes done separately ~20 years ago L knee arthroplasty 2018 R rotator cuff repair 2013 Corneal transplant November 2022 FAMILY HISTORY: Father 81 of liver cancer, diabetes Mother 83 diabetes, Alzheimers Siblings: brother had throat cancer (heavy smoker), sister had cancer (not sure which) SOCIAL HISTORY: -Work: works at [employer] -Home: lives with older brother -Alcohol: drinks 2-4 drinks/month -Tobacco: quit 25 years. Smoked for one year < 1PPD -Recreational Drugs: none -Sexuality: heterosexual Physical Exam: -Vitals Date Vital Measurement Qualifiers 10/29/2023 14:34 BP 151/67 10/29/2023 14:34 Temp F (C) 97.7 (36.5) Pulse 65 Respir 18 Wt lbs (kg)[BMI] 202 (91.63)[33*] Pain 0 POx (L/Min)(%) 96 -General: Well developed, appears younger than stated age, NAD -Neurological: No gross focal neurological deficit -HEENT: NTNC -Respiratory: CTAB -Cardiovascular: RRR, no M/R/G, midline sternotomy scar -Abdominal: bowel sounds present, NTND, diastasis recta -Musculoskeletal: gait normal -Psych: Mood and affect appropriate ASSESSMENT AND PLAN: NATASHA CHEUNG is a 73 year old MALE with a history of HIV and thrombocytopenia who presents today for routine follow up and for RSV vaccine. Patient's primary request today is getting the RSV vaccine, as he was told by his [facility] PCP that they did not have it at their office. Given his age and dyspnea of uncertain etiology currently being followed by a validation consultant, he seems an appropriate candidate for getting the RSV vaccine. Will request records from his other providers. #HIV -Gets care at [facility] infectious disease -Cardiology at [facility] Plan: -Request records from [facility] Infectious Disease and Cardiology -Medical records office: Phone number [phone]. Fax number [phone]. Infectious Disease Office: Cardiology office #Dyspnea of unknown etiology -Follows with validation consultant Dr. Duncan in [facility], will request records Evie France MD Pulmonology [address] [facility], [address] [place], [place] [address] -RSV vaccine #PCP records #Thrombocytopenia Dr. Lorrie Conte [address] [address] RTC 1 year RSV vaccine required shared-decision making: He meets criteria based on age and medical history. He has never had an allergic reaction after a previous dose of RSV vaccine, or has any severe, life-threatening allergies. He is not ill at this time. Pt understands the risks of a vaccine reaction as follows: -Pain, redness, and swelling where the shot is given, fatigue (feeling tired),fever, headache, nausea, diarrhea, and muscle or joint pain can happen after RSV vaccination. -Serious neurologic conditions, including Guillain-Hereford syndrome (GBS), have been reported very rarely after RSV vaccination in clinical trials. It is unclear whether the vaccine caused these events. -As with any medicine, there is a very remote chance of a vaccine causing a severe allergic reaction, other serious injury, or . After discussing the risks and benefits and alternatives to the RSV vaccine, Mr. Cheung chooses to take the RSV vaccine. No additional questions at this time. Order entered for when / if he opts for the vaccine. /linda/ ANGELINA JONES Resident Physician Signed: 10/29/2023 18:42 /es/ DARREN Ceballos MD Cosigned: 10/30/2023 12:46 10/29/2023 ADDENDUM STATUS: COMPLETED Rachell, I was hoping you could help me obtain some records from other providers on this patient. Past year of office notes and most recent CBC from his community care PCP: Dr. Lorrie Conte [address] [address] Past year of office notes, most recent chest CT, and most recent pulmonary function test from his community care validation consultant Evie France MD Pulmonology [address] [place] [address], [address] [address] Past year of office notes from [facility] infectious disease and past year of [facility] cardiology office notes along with most recent transthoracic echocardiogram. [facility] Medical records office: Phone number [phone]. Fax number [phone]. Infectious Disease Office: Cardiology office Thank you! /linda/ ANGELINA JONES Resident Physician Signed: 10/29/2023 18:47 /linda/ DARREN Ceballos MD Cosigned: 10/30/2023 12:34 Receipt Acknowledged By: 11/02/2023 08:46 /linda/ CARLO HERNANDEZ 10/30/2023 ADDENDUM STATUS: COMPLETED I discussed this pt with Dr. Jones and agree with a/p as outlined above /linda/ DARREN Ceballos MD Signed: 10/30/2023 12:46 11/02/2023 ADDENDUM STATUS: COMPLETED Requested records from [facility], [facility], and [facility]. /linda/ CARLO HERNANDEZ Signed: 11/02/2023 08:46 ANGELINA JONES [facility]
--- OUTSIDE RECORDS SUMMARY | 2024-05-12 17:03 | XMS_ITS | Encounter Summary ---
Author Name [facility] [place] [facility] [place] [facility] [place] Address [address] [place] [address] Care Team Providers Care Flame Planer Name Role Phone BRADLEYDESIREE Primary Care Provider ANGELINA Gracia Unavailable Unavailable [...] Policy [place] MEDICARE (WNR) MEDICARE (M) PART B Jul 18, 2015 PART B [id number] BRNEDON CHEUNGKALI PATIENT MEDICARE (WNR) MEDICARE (M) PART A Jul 18, 2015 PART A [id number] BRENDON CHEUNGKALI PATIENT [facility] MEDICAID MEDIC AID Jun 17, 2010 MEDICAI D [id number] BRENDON CHEUNG PATIENT [employer] MEDICARE SUPPLEMEN DILSHAD PLAN F May 01, 2017 PLAN F [id number] BRENDON CHEUNG PATIENT Selected Encounter This section includes the information on record at [place] for the Encounter. Date/Time Encounter Type Encounter Description Reason Provider Source Oct 02, 2023 03:00 PM HEARING AID FITTING/CHECKIN G AUDIOLOGY ICD-10-CM Z46.1 Encounter for fitting and adjustment of hearing aid EFE ROA Rodney Encounter Template Text not used by [place] Assessments - Encounter Diagnoses This section includes the primary and secondary diagnoses documented for the Encounter. Date/Time Primary/Secondary Diagnosis Diagnosis Name Provider Source Oct 02, 2023 03:51 PM PRIMARY Encounter for fitting and adjustment of hearing aid EFE RAO [facility] Oct 02, 2023 03:51 PM SECONDARY Sensorineural hearing loss, bilateral EFE ROA [facility] Plan of Treatment: Future Appointments (+ 6 months) and Future Tests (+/- 45 days) The Plan of Treatment section includes future care activities for the patient from all [place] [facility] This section includes future appointments and future orders which are active, pending or scheduled. Future Appointments This section includes appointments that were scheduled to occur 6 months from the date of the Encounter, up to a maximum of 20 appointments. The data comes from all [place] treatment facilities. Appointment Date/Time Appointment Type Appointme nt Facility Name Oct 29, 2023 02:30 PM AMBULATORY - MEDICINE [facility] Nov 13, 2023 10:00 AM AMBULATORY - REHAB MEDICIN E [facility] Dec 05, 2023 09:00 AM AMBULATORY - REHAB MEDICIN E [facility] Dec 27, 2023 10:00 AM AMBULATORY - SURGERY [facility] February 06, 2024 11:30 AM AMBULATORY - REHAB MEDICIN E [facility] Social History: Smoking Status (Most current) and Tobacco Use (All prior to encounter date) This section includes the most current, and the historical, smoking and tobacco- related health factors from the [place] facility where the Encounter took place. Current Smoking Status This section includes the most current smoking, or tobacco-related health factor, from the [place] facility where the Encounter took place. Date/Time Current Smoking Status Comment Facil ity Apr 25, 2023 01:30 [facility] Tobacco Use History This section includes a history of the smoking, or tobacco-related health factors, that were collected on or before the date of the Encounter. The data comes from the [place] facility where the Encounter took place. Date/Time Smoking Status/Tobacco Use Comment F acility Apr 25, 2023 01:30 PM VA-TOBACCO QUIT 15 YRS OR MORE [facility] Aug 03, 2021 10:30 AM VA-TOBACCO NEVER USED [facility] May 10, 2020 03:00 PM VA-TOBACCO FORMER USER [facility] May 10, 2020 03:00 PM VA-TOBACCO QUIT 15 YRS OR MORE [facility] Apr 16, 2019 12:07 PM VA-TOBACCO FORMER USER [facility] Apr 16, 2019 12:07 PM VA-TOBACCO QUIT 15 YRS OR MORE [facility] Jan 04, 2018 09:53 AM QUIT TOBACCO USE > 7 YEARS AGO [facility] Dec 21, 2016 09:33 AM QUIT TOBACCO USE > 7 YEARS AGO [facility] Oct 29, 2015 08:35 AM QUIT TOBACCO USE > 7 YEARS AGO [facility] Jan 09, 2011 10:18 AM QUIT TOBACCO USE > 7 YEARS AGO 10 Years NOTI DEE T [facility] Encounter Notes: All associated encounter notes This section contains the clinical notes associated to the Encounter. Date/Time Encounter Note(s) Provider Source Oct 02, 2023 03:08 PM AUDIOLOGY NOTE: LOCAL TITLE: Audiology Note STANDARD TITLE: AUDIOLOGY NOTE DATE OF NOTE: OCT 02, 2023@15:08 ENTRY DATE: OCT 02, 2023@15:09:01 AUTHOR: EFE ROA EXP COSIGNER: URGENCY: STATUS: COMPLETED Audiology Note Has ADDENDA HEARING AID CHECK: Subjective: 73 year old with bilateral sensorineural hearing loss and HEARING AIDS: 08/08/23 SONOVA PHONAK VIRTO P90 HS R [id number] 08/08/26 01/06/24 405 IVAN MAKIT [facility] 08/08/23 SONOVA PHONAK VIRTO P90 HS L [id number] 08/08/26 01/06/24 405 [facility] 08/27/19 GN RESOUND LINX QUATTRO HS R [id number] 09/11/22 405 [facility] [place] [facility] [facility] 08/27/19 GN RESOUND LINX QUATTRO HS L [id number] 09/11/22 405 IVAN [facility] 09/07/14 PHONAK PHONAK AUDEO V90-312 MAUREEN R [id number] 09/23/17 405 [facility] 09/07/14 PHONAK PHONAK AUDEO V90-312 MAUREEN L [id number] 09/23/17 405 [facility] -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 reports the volume of the left aid is very soft compared to the right so he has not been wearing it as much as the right aid. He also feels like the left aid blocks his ear and the vent isn't as large as his spare hearing aid. Objective/Assessment: Otoscopy revealed clear canals AU. Cleaned replaced wax traps and checked hearing aids - working well. Data logging revealed an average daily use of 13 hours for the right aid and 7.6 hours for the left aid. Made programming adjustments - -increased overall gain in the left aid 6 steps -decreased gain 3129-0850 Hz 6-9 steps in the left aid Subjectively was pleased with settings and stated they were more balanced. He did still report and blocked/plugged feeling from the left aid. Attempted to widen the vent on the left aid but the material was too thin so the casing cracked. Sent aid in for repair to make the vent larger and change to IROS vent. left today with the RIGHT aid. Plan: 1) Sent in LEFT 2022 aid for repair. When it returns, mail to . 2) Scheduled HAS in 6 weeks per 's request. /linda/ Orlando Pierce Staff Passenger Vessel Chef Signed: 10/02/2023 16:15 10/11/2023 ADDENDUM STATUS: COMPLETED aid returned from repair. Programmed to pt settings and mailed to . /linda/ Orlando Pierce Staff Passenger Vessel Chef Signed: 10/11/2023 15:57 EFE ROA [facility]
--- OUTSIDE RECORDS SUMMARY | 2024-05-12 17:03 | XMS_ITS | Encounter Summary ---
Author Name [facility] [place] [facility] [place] Organization [facility] [place] Address [address] [place] [address] Care Team Providers Care Event Executive Name Role Phone BRADLEYDESIREE Primary Care Provider [...] PART A Jul 18, 2015 PART A [id number] CHEUNGBRENDON TOMAS PATIENT MEDICARE (WNR) MEDICARE (M) PART B Jul 18, 2015 PART B [id number] BRENDON CHEUNG [facility]IENT [facility] Jun 17, 2010 MEDICAI D [id number] BRENDON CHEUNG PATIENT [employer] MEDICARE SUPPLEMEN DILSHAD PLAN F May 01, 2017 PLAN F [id number] BRENDON CHEUNG PATIENT Selected Encounter This section includes the information on record at [place] for the Encounter. Date/Time Encounter Type Encounter Description Reason Provider Source Jul 03, 2023 02:00 PM HEARING AID REPAIR/MODIFYIN G AUDIOLOGY ICD-10-CM H90.3 Sensorineural hearing loss, bilateral DAHL,EFE FEDERICA Rodney Encounter Template Text not used by [place] Assessments - Encounter Diagnoses This section includes the primary and secondary diagnoses documented for the Encounter. Date/Time Primary/Secondary Diagnosis Diagnosis Name Provider Source Jul 03, 2023 02:50 PM PRIMARY Sensorineural hearing loss, bilateral EFE ROA [facility] Jul 03, 2023 02:50 PM SECONDARY Encounter for fitting and adjustment of hearing aid EFE ROA [facility] Plan of Treatment: Future Appointments (+ 6 months) and Future Tests (+/- 45 days) The Plan of Treatment section includes future care activities for the patient [facility] [place] [facility]. This section includes future appointments and future orders which are active, pending or scheduled. Future Appointments This section includes appointments that were scheduled to occur 6 months from the date of the Encounter, up to a maximum of 20 appointments. The data comes from all [place] treatment facilities. Appointment Date/Time Appointment Type Appointme nt Facility Name Aug 08, 2023 02:00 PM AMBULATORY - REHAB MEDICIN E [facility] Oct 02, 2023 03:00 PM AMBULATORY - REHAB MEDICIN E [facility] Oct 29, 2023 02:30 PM AMBULATORY - MEDICINE [facility] Nov 13, 2023 10:00 AM AMBULATORY - REHAB MEDICIN E [facility] Dec 05, 2023 09:00 AM AMBULATORY - REHAB MEDICIN E [facility] Dec 27, 2023 10:00 AM AMBULATORY - SURGERY [facility] Social History: Smoking Status (Most current) and Tobacco Use (All prior to encounter date) This section includes the most current, and the historical, smoking and tobacco- related health factors from the [place] facility where the Encounter took place. Current Smoking Status This section includes the most current smoking, or tobacco-related health factor, from the [place] facility where the Encounter took place. Date/Time Current Smoking Status Comment Facil ity Apr 25, 2023 01:30 PM VA-TOBACCO FORMER USER [facility] Tobacco Use History This section includes a history of the smoking, or tobacco-related health factors, that were collected on or before the date of the Encounter. The data comes from the [place] facility where the Encounter took place. Date/Time Smoking Status/Tobacco Use Comment F acility Apr 25, 2023 01:30 PM VA-TOBACCO QUIT 15 YRS OR MORE [place] [facility] Aug 03, 2021 10:30 AM VA-TOBACCO NEVER USED [place] [facility] May 10, 2020 03:00 PM VA-[facility]BACCO [facility] May 10, 2020 03:00 PM VA-TOBACCO QUIT 15 YRS OR MORE [place] [facility] Apr 16, 2019 12:07 PM VA-TOBACCO FOR[facility] USER [facility] Apr 16, 2019 12:07 PM VA-TOBACCO QUIT 15 YRS OR MORE [place] [facility] Jan 04, 2018 09:53 AM QUIT TOBACCO USE > 7 YEARS AGO [facility] Dec 21, 2016 09:33 AM QUIT TOBACCO USE > 7 YEARS AGO [facility] Oct 29, 2015 08:35 AM QUIT TOBACCO USE > 7 YEARS AGO [facility] Jan 09, 2011 10:18 AM QUIT TOBACCO USE > 7 YEARS AGO [facility] Encounter Notes: All associated encounter notes This section contains the clinical notes associated to the Encounter. Date/Time Encounter Note(s) Provider Source Jul 03, 2023 01:57 PM AUDIOLOGY NOTE: LOCAL TITLE: Audiology Note STANDARD TITLE: AUDIOLOGY NOTE DATE OF NOTE: JUL 03, 2023@13:57 ENTRY DATE: JUL 03, 2023@13:57:47 AUTHOR: EFE ROA COSIGNER: URGENCY: STATUS: COMPLETED Audiology Note Has ADDENDA AUDIOLOGIC EVALUATION: : 1950 AGE: 72 RELIABILITY: good HISTORY/REASON FOR EVALUATION: 72 year old was seen today for an updated audiological evaluation. [place] reports increased difficulty understanding general conversation. PREVIOUS EVALUATION: 08/05/2019 RIGHT: WNL 250-1000 Hz, moderate to moderately-severe SNHL 7662-5807 Hz LEFT: mild sloping to profound SNHL 250-8000 Hz *10-15dB shifts noted at 500, 3270-7324 and 8000 Hz re: 2013 *Rechecked with inserts HEARING AIDS: 08/27/19 GN RESOUND LINX QUATTRO HS R [id number] 09/11/22 405 [facility] 08/27/19 GN RESOUND LINX QUATTRO HS L [id number] 09/11/22 405 [facility] 09/07/14 PHONAK PHONAK AUDEO V90-312 MAUREEN R [id number] 09/23/17 405 [facility] 09/07/14 PHONAK PHONAK AUDEO V90-312 MAUREEN L [id number] 09/23/17 405 [facility] -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 Diabetes: Denied. Head trauma: head trauma as a child but denied any recent head injuries. Hypertension: Denied. Stroke: Denied. Other: aortic valve replaced a few years ago TINNITUS: denied DIZZINESS/VERTIGO: [place] has had vertiginous episodes in the past (2006) but denied any recent issues with vertigo. FAMILY HISTORY OF HEARING LOSS: Patient denies any family history of hearing loss. OTOLOGIC HISTORY: Patient denies any recent or chronic otitis media, otorrhea, otalgia or ear surgery. 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 To view the actual audiogram, click the Tools menu, and choose Rehab Medicine then Audiogram Display EDUCATION: [place] counseled re- test results and amplification. He continues to be a hearing aid candidate AU based on audiometric data, and patient subjective complaints. He would benefit from updated technology. Discussed styles and options for amplification. [place] wants to stay with HS style w/ traditional batteries. Selected and ordered binaural Phonak Virto P90 HS hearing aids. Impressions taken without incident AU. Otoscopic exam after impressions revealed clear canals AU. Also discussed realistic expectations for hearing aid use and communication strategies to facilitate good communication. Prognosis for successful hearing aid use is good. HEARING AID CHECK Cleaned and checked aids- working well. Connected ais to the software and recalculated prescribed setting based on today's test. Also re-ran feedback calibration. No feedback was noted. Subjectively was pleased with settings. RECOMMENDATIONS/PLAN: 1) Ordered 2) Scheduled HAF 3) Re-eval in 2-3 years or sooner per 's request. /linda/ Orlando Pierce Staff Manager Membership Signed: 07/03/2023 14:56 07/11/2023 ADDENDUM STATUS: COMPLETED new hearing aids arrived. /es/ Orlando Pierce Staff Manager Membership Signed: 07/11/2023 14:[address] [facility]
--- OUTSIDE RECORDS SUMMARY | 2024-05-12 17:03 | XMS_ITS | Encounter Summary ---
Author Name [facility] [place] [facility] [place] Address [address] [place] [address] Care Team Providers Care Fish And Wildlife Warden Name Role Phone BRADLEYDESIREE Primary Care Provider [...] PART B Jul 18, 2015 PART B [id number] BRENDON CHEUNGKALI PATIENT MEDICARE (WNR) MEDICARE (M) PART A Jul 18, 2015 PART A [id number] [facility] [phone] [id number] BRENDON CHEUNG PATIENT [facility] MEDICAID MEDIC AID Jun 17, 2010 MEDICAI D [id number] [id number] BRENDON CHEUNG PATIENT [employer] MEDICARE SUPPLEMEN DILSHAD PLAN F May 01, 2017 PLAN F [id number] BRENDON CHEUNG PATIENT Selected Encounter This section includes the information on record at [place] for the Encounter. Date/Time Encounter Type Encounter Description Reason Pro vider Source Jun 17, 2023 12:00 AM Outpatient Encounter EVENT (HISTORICAL) IHE Encounter Template Text not used by [place] Plan of Treatment: Future Appointments (+ 6 months) and Future Tests (+/- 45 days) The Plan of Treatment section includes future care activities for the patient from [facility] [place] [facility]. This section includes future appointments and future orders which are active, pending or scheduled. Future Appointments This section includes appointments that were scheduled to occur 6 months from the date of the Encounter, up to a maximum of 20 appointments. The data comes from all [place] treatment facilities. Appointment Date/Time Appointment Type Appointme nt Facility Name Jul 03, 2023 02:00 PM AMBULATORY - REHAB MEDICIN E [facility] Aug 08, 2023 02:00 PM AMBULATORY - REHAB MEDICIN E [facility] Oct 02, 2023 03:00 PM AMBULATORY - REHAB MEDICIN E [facility] Oct 29, 2023 02:30 PM AMBULATORY - MEDICINE [facility] Nov 13, 2023 10:00 AM AMBULATORY - REHAB MEDICIN E [facility] Dec 05, 2023 09:00 AM AMBULATORY - REHAB MEDICIN E [facility] Immunizations: All administered on the encounter date This section contains immunizations associated to the Encounter. Immunization Series Date Issued Reaction Comments INFLUENZA, UNSPECIFIED FORMULATION Jun 17, 2023 Social History: Smoking Status (Most current) and Tobacco Use (All prior to encounter date) This section includes the most current, and the historical, smoking and tobacco- related health factors from the [place] facility where the Encounter took place. Current Smoking Status This section includes the most current smoking, or tobacco-related health factor, from the [place] facility where the Encounter took place. Date/Time Current Smoking Status Comment Facil ity Apr 25, 2023 01:30 PM VA-TOBACCO QUIT 15 YRS OR MORE [facility] Tobacco Use History This section includes a history of the smoking, or tobacco-related health factors, that were collected on or before the date of the Encounter. The data comes from the [place] facility where the Encounter took place. Date/Time Smoking Status/Tobacco Use Comment F acility Apr 25, 2023 01:30 PM VA-TOBACCO QUIT 15 YRS OR MORE [facility] Aug 03, 2021 10:30 AM VA-TOBACCO NEVER USED [facility] May 10, 2020 03:00 PM VA-TOBACCO FORMER USER [facility] May 10, 2020 03:00 PM VA-TOBACCO QUIT 15 YRS OR MORE [facility] Apr 16, 2019 12:07 PM VA-TOBACCO FORMER USER [facility] Apr 16, 2019 12:07 PM VA-TOBACCO QUIT 15 YRS OR MORE [facility] Jan 04, 2018 09:53 AM QUIT TOBACCO USE > 7 YEARS AGO [facility] Dec 21, 2016 09:33 AM QUIT TOBACCO USE > 7 YEARS AGO [facility]AN LINDSTROM [facility] Oct 29, 2015 08:35 AM QUIT TOBACCO USE > 7 YEARS AGO [facility] Jan 09, 2011 10:18 AM QUIT TOBACCO USE > 7 YEARS AGO 10 Years [facility]
--- OUTSIDE RECORDS SUMMARY | 2024-05-12 17:03 | XMS_ITS | Encounter Summary ---
Author Name [facility] [place] [facility] [place] Address [address] [place] [address] Care Team Providers Care Waitstaff Name Role Phone DESIREE BRADLEY Primary Care [...] PART A Jul 18, 2015 PART A [id number] [facility] BRENDON CHEUNG PATIENT MEDICARE (WNR) MEDICARE (M) PART B Jul 18, 2015 PART B [id number] [facility] [id number] BR[facility]ON CHE[facility]IC AID Jun 17, 2010 MEDICAI D [id number] [phone] JONATANME LAKSHMI PATIENT [employer] MEDICARE SUPPLEMEN DILSHAD PLAN F May 01, 2017 PLAN F [id number] BRENDON CHEUNG PATIENT Selected Encounter This section includes the information on record at [place] for the Encounter. Date/Time Encounter Type Encounter Description Reason Provider Source Aug 08, 2023 03:04 PM ADMN SARSCOV2 VACC 1 DOSE PRIMARY CARE/MEDICINE ICD-10-CM Z23 Encounter for immunization RAH GUERRA [facility] Encounter Template Text not used by [place] Assessments - Encounter Diagnoses This section includes the primary and secondary diagnoses documented for the Encounter. Date/Time Primary/Secondary Diagnosis Diagnosis Name Provider Source Aug 08, 2023 03:05 PM PRIMARY Encounter for immunization MAYRA GUERRA [facility] Plan of Treatment: Future Appointments (+ 6 months) and Future Tests (+/- 45 days) The Plan of Treatment section includes future care activities for the patient from all [place] treatmentfacilities. This section includes future appointments and future orders which are active, pending or scheduled. Future Appointments This section includes appointments that were scheduled to occur 6 months from the date of the Encounter, up to a maximum of 20 appointments. The data comes from all [place] treatment facilities. Appointment Date/Time Appointment Type Appointme nt Facility Name Oct 02, 2023 03:00 PM AMBULATORY - REHAB MEDICIN E [facility] Oct 29, 2023 02:30 PM [facility]ULATORY - [facility]ICINE [facility] Nov 13, 2023 10:00 AM AMBULATORY - REHAB MEDICIN E [facility] Dec 05, 2023 09:00 AM AMBULATORY - REHAB MEDICIN E [facility] Dec 27, 2023 10:00 AM AMBULATORY - SURGERY [facility] February 06, 2024 11:30 AM AMBULATORY - REHAB MEDICIN E [facility] Immunizations: All administered on the encounter date This section contains immunizations associated to the Encounter. Immunization Series Date Issued Reaction Comments COVID-19 (MODERNA), MRNA, LN P-S, PF, 50 MCG/0.5 ML (AGES 12+ YEARS) 1 Aug 08, 2023 Social History: Smoking Status (Most current) and Tobacco Use (All prior to encounter date) This section includes the most current, and the historical, smoking and tobacco- related health factors from the [place] facility where the Encounter took place. Current Smoking Status This section includes the most current smoking, or tobacco-related health factor, from the [place] facility where the Encounter took place. Date/Time Current Smoking Status Comment Brianna lopez Apr 25, 2023 01:30 PM VA-TOBACCO FORMER USER [facility] Tobacco Use History This section includes a history of the smoking, or tobacco-related health factors, that were collected on or before the date of the Encounter. The data comes from the [place] facility where the Encounter took place. Date/Time Smoking Status/Tobacco Use Comment F acility Apr 25, 2023 01:30 PM VA-TOBACCO QUIT 15 YRS OR MORE [place] [facility] Aug 03, 2021 10:30 AM VA-TOBACCO NEVER USED [place] [facility] May 10, 2020 03:00 PM VA-TOBACCO FORMER USER [place] [facility] May 10, 2020 03:00 PM VA-TOBACCO QUIT 15 YRS OR MORE [place] [facility] Apr 16, 2019 12:07 PM VA-TOBACCO FORMER USER [place] [facility] Apr 16, 2019 12:07 PM VA-TOBACCO QUIT 15 YRS OR MORE [place] [facility] Jan 04, 2018 09:53 AM QUIT TOBACCO USE > 7 YEARS AGO [place] [facility] Dec 21, 2016 09:33 AM QUIT TOBACCO USE > 7 YEARS AGO [place] [facility] Oct 29, 2015 08:35 AM QUIT TOBACCO USE > 7 YEARS AGO [place] [facility] Jan 09, 2011 10:18 AM QUIT TOBACCO USE > 7 YEARS AGO 10 Years [place] [facility] Encounter Notes: All associated encounter notes This section contains the clinical notes associated to the Encounter. Date/Time Encounter Note(s) Provider Source Aug 08, 2023 03:04 PM NURSING IMMUNIZATI ON NOTE: LOCAL TITLE: VAAES NSG COVID-19 VACCINE ADMINISTRATION STANDARD TITLE: NURSING IMMUNIZATION NOTE DATE OF NOTE: AUG 08, 2023@15:04 ENTRY DATE: AUG 08, 2023@15:04:16 AUTHOR: MAYRA GUERRA EXP COSIGNER: URGENCY: STATUS: COMPLETED Moderna Monovalent (Spikevax) Administered: COVID-19 (MODERNA), MRNA, LNP-S, PF, 50 MCG/0.5 ML (AGES 12+ YEARS) Date Administered: Aug 08, 2023 15:04 Series: Series 1 Lead Relay Tester: [employer] Lot: [id number] Exp Date: January 17, 2024 ND: [id number] Admin Route/Site: INTRAMUSCULAR/LEFT DELTOID Dosage: 0.5mL Vaccine Information Statement(s): COVID-19 MRNA VACCINE (12+ YRS) VACCINE VIS Jul 05, 2023 ([place]) Order By: Policy Administered By: Mayra Guerra Vaccine administered without complications. The patient was advisedto remain in the facility for 15 minutes post vaccination. Influenza Immunization: The patient has received the seasonal influenza vaccine for the current season at another location. Documented: INFLUENZA, UNSPECIFIED FORMULATION Historical Date Administered: Jun 2023 Exact date unknown Outside Location: Non [place] Facility Information Source: FROM PATIENT'S RECALL /es/ MAYRA GUERRA Staff Nurse Signed: 08/08/2023 15:06 MAYRA GUERRA [facility]
--- OUTSIDE RECORDS SUMMARY | 2024-05-12 17:03 | XMS_ITS | Encounter Summary ---
Author Name [facility] [place] [facility] [place] [facility] [place] Address [address] [place] [address] Care Team Providers Care Virtual Recruiter Name Role Phone BRADLEYDESIREE Primary Care Provider [...] PART B Jul 18, 2015 PART B [id number] [facility] [phone] BRENDON CHEUNGGianni PATIENT MEDICARE (WNR) MEDICARE (M) PART A Jul 18, 2015 PART A [id number] BRENDON CHEUNG PATIENT [facility] MEDICAID MEDIC AID Jun 17, 2010 MEDICAI D [id number] BRENDON CHEUNG PATIENT [employer] MEDICARE SUPPLEMEN DILSHAD PLAN F May 01, 2017 PLAN F [id number] BRENDON CHEUNG PATIENT Selected Encounter This section includes the information on [place] at [place] for the Encounter. Date/Time Encounter Type Encounter Description Reason Provider Source Aug 08, 2023 02:00 PM HEARING AID SUP/ACCESS/DEV AUDIOLOGY ICD-10-CM Z46.1 Encounter for fitting and adjustment of hearing aid DAHL,EFE FEDERICA Rodnye Encounter Template Text not used by [place] Assessments - Encounter Diagnoses This section includes the primary and secondary diagnoses documented for the Encounter. Date/Time Primary/Secondary Diagnosis Diagnosis Name Provider Source Aug 08, 2023 02:37 PM PRIMARY Encounter for fitting and adjustment of hearing aid EFE ROA [facility] Aug 08, 2023 02:37 PM SECONDARY Sensorineural hearing loss, bilateral EFE ROA [facility] Plan of Treatment: Future Appointments (+ 6 months) and Future Tests (+/- 45 days) The Plan of Treatment section includes [facility] care [facility] the [facility] [place] [facility]. This section includes future appointments and [...] 03:00 PM AMBULATORY - REHAB MEDICIN E [facility] Oct 29, 2023 02:30 PM AMBULATORY [facility] MED[facility]INE [facility] Nov 13, 2023 10:00 AM AMBULATORY - REHAB MEDICIN E [facility] Dec 05, 2023 09:00 AM AMBULATORY - REHAB MEDICIN E [facility] Dec 27, 2023 10:00 AM AMBULATORY - SURGERY [facility] February 06, 2024 11:30 AM AMBULATORY - RE[facility]AB MEDICIN E [facility] Social History: Smoking Status (Most current) [...] Brianna lopez Apr 25, 2023 01:30 PM [place]-TO[place] 15 YRS [place] MORE [place] MORE [facility] Aug 03, 2021 10:30 AM VA-TOBACCO NEVER USED [facility] May 10, 2020 03:00 PM VA-TOBACCO FORMER USER [facility] May 10, 2020 03:00 PM VA-TOBACCO QUIT 15 YRS OR MORE [facility] Apr 16, 2019 12:07 PM VA-TOBACCO FORMER USER [facility] Apr 16, 2019 12:07 PM VA-TOBACCO QUIT 15 YRS OR MORE [facility] Jan 04, 2018 09:53 AM QUIT TOBACCO USE > 7 YEARS AGO [facility] Dec 21, 2016 09:33 AM QUIT TOBACCO USE > 7 YEARS AGO [facility] Oct 29, 2015 08:35 AM QUIT TOBACCO USE > 7 YEARS AGO [facility] Jan 09, 2011 10:18 AM QUIT TOBACCO USE > 7 YEARS AGO 10 Years [facility] Encounter Notes: All associated encounter notes This section contains the clinical notes associated to the Encounter. Date/Time Encounter Note(s) Provider Source Aug 08, 2023 01:41 PM AUDIOLOGY NOTE: LOCAL TITLE: Audiology Note STANDARD TITLE: AUDIOLOGY NOTE DATE OF NOTE: AUG 08, 2023@13:41 ENTRY DATE: AUG 08, 2023@13:42:03 AUTHOR: EFE ROA EXP COSIGNER: URGENCY: STATUS: COMPLETED SUMMARY OF HEARING AID FITTING: S: Pt. has been diagnosed with bilateral sensorineural hearing loss and was scheduled today for a hearing aid fitting. See the previous evaluation note for a full report of the 's history and description of hearing loss. He is a previous hearing aid user. O: PROCEDURES: Otoscopy Real-Ear Measures-fitting two devices Analysis of REM computer data in selection/fitting of device Supplies Issued: batteries, cleaning tools, cases, instructions Pt education materials issued/discussed First-time user hearing aid orientation Hearing therapy (direct) re: adjustment to amplification HEARING AIDS 08/08/23 SONOVA PHONAK VIRTO P90 HS R [id number] 08/08/26 01/06/24 405 [facility] 08/08/23 SONOVA PHONAK VIRTO P90 HS L [id number] 08/08/26 01/06/24 [facility] 08/27/19 GN RESOUND LINX QUATTRO HS R [id number] 09/11/22 [facility] 08/27/19 GN RESOUND LINX QUATTRO HS L [id number] 09/11/22 405 [facility] 09/07/14 PHONAK PHONAK AUDEO V90-312 MAUREEN R [id number] 09/23/17 405 [facility] 09/07/14 PHONAK PHONAK AUDEO V90-312 MAUREEN L [id number] 09/23/17 405 [facility] -Power engine manager, size 2, c-shell, hard acrylic HEARING AID INFORMATION: TRUCK DOCK MATERIAL MOVER/MODEL: binaural Phonak Virto P90 HS hearing aids SERIAL #: Right:[id number] Left:[id number] WARRANTY EXP: 08/08/2026 TRIAL PERIOD EXP: 01/06/2024 PROGRAMMING/SETTINGS: Fitting rationale: Adaptive HuTerra Digital Program: P1= AutoSense Target Gain:100% Auto-Acclimatization: OFF Push Button: VC; right raise, left lower; cell phone-answer/end/reject ADDITIONAL SUPPLIES ISSUED: wax traps BASIS FOR FITTING-Physical fit of hearing aids was good. Hearing aids were set to target using an Adaptive PhonInfoBasis Digital fitting rationale and set to 100% target gain. Ran feedback nightclub manager. Verification using speech mapping was performed to assess functionality for various inputs. Hearing aids met targets adequately and MPO was not exceeding estimated UCL. Adjustments made to meet targets: -decreased soft gain in the left aid [id number] Hz 6 steps Paired hearing aids to 's cell phone and eSolar mariaelena- counseled on use. Charlotte successfully streamed a cell phone call today. Reglued the removal line on his 2019 LEFT aid. Charlotte reports good sound quality. Greater than 30 minutes was spent counseling, educating and instructing the re: use & care of hearing aids. He was given [facility] info packet & reviewed rand points: battery order, repairs, & trial period. Charlotte was able to insert the hearing aids with ease. Counseled regarding realistic expectations for hearing aid use, importance of consistent use and communication strategies to facilitate good communication. He was encouraged to call with any problems or concerns. Prognosis= good. would like to set up a f/u appt. SHORT TERM GOALS--practice insertion/removal of device, changing batteries, practice using the telephone, practice using programming button and using good listening skills. RESOURCE CENTER TEACHER GOALS--use device in all safe listening situations at least 10-12 hours per day. PLAN-- 1) Issued binaural Phonak Virto P90 HS hearing aids 2) Follow up HAS in Sep 2023 /linda/ Orlando Pierce Staff Sports Equipment Supervisor Signed: 08/08/2023 14:38 EFE ROA [facility]
--- OUTSIDE RECORDS SUMMARY | 2024-05-12 17:03 | XMS_ITS | Continuity of Care Document ---
Author Name [facility] Organization [facility] Care Team Providers Care Childcare Worker Name Role Phone [facility] Unavailable Unavailable Problems Combined list of problems from Department of Defense and Veterans Affairs facilities. It does not include entries that were removed or entered in error. Problem Status Onset Date Problem Type Date of Resolution Comments Source Dyspnea Active Condition [facility] Exposure to potentially hazardous substance Active Condition [facility] HIV - Human Immunodeficiency Virus Infection (SCT 48217507) Active Condition [facility] Left bundle branch block Active Condition [facility] Sensorineural hearing loss (SNOMED CT 87724374) Active Condition [facility] Thrombocytopenia Active Condition [facility] Uveitis (SNOMED CT 130474291) Active Condition [facility] Diagnosis: ICD-10-CM Z46.1 Encounter for fitting and adjustment of hearing aid Active Diagnosis [facility] Diagnosis: ICD-10-CM H17.9 Unspecified corneal scar and opacity Active Diagnosis [facility] Diagnosis: ICD-10-CM R06.00 Dyspnea, unspecified Active Diagnosis [facility] Diagnosis: ICD-10-CM Z23 Encounter for immunization Active Diagnosis [facility] Diagnosis: ICD-10-CM H90.3 Sensorineural hearing loss, bilateral Active Diagnosis [facility] Diagnosis: ICD-10-CM Z77.29 Contact with and exposure to other hazardous substances Active Diagnosis [facility] Medications Combined list of outpatient medications from Department of Defense and Veterans Affairs facilities.Medications provided include 1) outpatient medications from the last 15 months, and 2) patient-reported medications. Medication Details Route Status Patient Instructions Prescription Expires Prescription Number Last Dispense Date Ordering Provider Order Date Order Qty Source ASPIRIN 81MG TAB,EC ASPIRIN 81MG TAB,EC Non-VA TAKE ONE TABLET BY MOUTH EVERY DAY May 10, 2020 Non-VA Document ed by: MARTA PEDERSEN Document ed at: [facility] ORAL ACTIVE Pranay PEDERSEN RETCHEN 2019 [facility] ATORVASTATI N CA 20MG TAB ATORVAST ATIN CA 20MG TAB Non-VA TAKE ONE TABLET BY MOUTH ONCE DAILY TO LOWER CHOLESTE ROL Apr 25, 2023 Non-VA Document ed by: Pedro JONES Document ed at: [facility] ORAL ACTIVE GOSIA JONES C [address] [facility] BICTEGRAVIR 50MG/EMTRIC ITABINE 200MG/TENOF OVIR AF 25MG TAB BICTEGRA VIR 50MG/EMT RICITABI NE 200MG/TE NOFOVIR AF 25MG TAB Non-VA TAKE ONE TABLET BY MOUTH EVERY DAY May 06, 2019 Non-VA Document ed by: MRATA PEDERSEN Document ed at: [facility] Pranay PEDERSEN 2018 [facility] BRIMONIDINE TARTRATE 0.15% SOLN,OPH BRIMONID INE TARTRATE 0.15% SOLN,OPH Non-VA INSTILL 1 DROP IN BOTH EYES TWICE A DAY UNKNOWN Apr 25, 2023 Non-VA Document ed by: Pedro JONES Document ed at: [facility] OPHTHA LMIC ACTIVE GOSIA JONES [facility] C [address] [facility] CARBOXYMETH YLCELLULOSE NA 0.5% (PF) SOLN,OPH,0. 4ML CARBOXYM ETHYLCEL LULOSE NA 0.5% (PF) SOLN,OPH ,0.4ML Active INSTILL ONE DROP IN BOTH EYES FOUR TIMES A DAY FOR DRY EYE FOR DRY EYE Dec 27, 2023 60 Dec 27, 2024 [id number] Dec 30, 2023 JUANA GLASS [facility] OPHTHA LMIC ACTIVE 12/27/2024 [id number] MAUREEN GLASS 2023 60 [facility] MELATONIN 5MG CAP/TAB MELATONI N 5MG CAP/TAB Non-VA TAKE 1 CAP/TAB BY MOUTH AT BEDTIME May 10, 2020 Non-VA Document ed by: MARTA PEDERSEN Document ed at: [facility] ORAL ACTIVE Pranay PEDERSEN RETCHEN 2019 [facility] PREDNISOLON E ACETATE 0.12% SUSP,OPH PREDNISO LONE ACETATE 0.12% SUSP,OPH Non-VA INSTILL 1 DROP IN LEFT EYE TWICE A DAY UNKNOWN Apr 25, 2023 Non-VA Document ed by: Pedro JONES Document ed at: [facility] OPHTHA LMIC ACTIVE GOSIA JONES 2022 [facility] RSV VACCINE INJ,LYPHL,S YR,KIT RSV VACCINE INJ,LYPH L,SYR,KI T INJECT 0.5ML INTRAMUS CULARLY ONCE FOR RSV PREVENTI ON PER SHARED CLINICAL DECISION MAKING FOR RSV PREVENTI ON Oct 29, 2023January 27, 2024 [id number] Oct 29, 2023 Pedro JONES [facility] INTRAM USCULA R 01/27/2024 [id number] GOSIA JONES 2023 1 [facility] TAMSULOSIN HCL 0.4MG CAP TAMSULOS IN HCL 0.4MG CAP Non-VA TAKE 1 CAPSULE BY MOUTH DAILY FOR BENIGN PROSTATI C HYPERPLA RAYMOND Apr 25, 2023 Non-VA Document ed by: Pedro JONES Document ed at: [facility] ORAL ACTIVE GOSIA JONES 2022 [facility] TIMOLOL MALEATE 0.5% SOLN,OPH TIMOLOL MALEATE 0.5% SOLN,OPH Non-VA INSTILL 1 DROP IN BOTH EYES TWICE A DAY UNKNOWN Apr 25, 2023 Non-VA Document ed by: Pedro JONES Document ed at: [facility] OPHTHA IC ACTIVE GOSIA JONES 2022 [facility] Immunizations Combined list of available immunizations from the Department of Defense and Veterans Affairs facilities. Immunization Series Date Given Administered By Site Reaction Lot Number CVX Code Drug Slot Manager Status Comments Source RSV, BIVALENT, PROTEIN SUBUNIT RSVPREF, DILUENT RECONSTITUTED , 0.5 ML, PF 2023 ARUN CORRIGAN RA LEFT DELTO ID [id number] 305 complet ed [facility] COVID-19 (MODERNA), MRNA, LNP-S, PF, 50 MCG/0.5 ML (AGES 12+ YEARS) 1 2022 BRODIERAH Koenig LEFT DELTO ID [id number] [address] [facility] INFLUENZA, UNSPECIFIED FORMULATION [address] [facility] ZOSTER RECOMBINANT 2022 DERRELL CHÁVEZ LEFT DELTO ID [id number] 187 complet ed [facility] COVID-19, MRNA, LNP-S, BIVALENT BOOSTER, PF, 50 MCG/0.5 ML OR 25MCG/0.25 ML DOSE 1 2021 229 complet ed MOD; [id number]; 3 [facility] ZOSTER RECOMBINANT 1 2021 187 complet ed [facility] INFLUENZA, UNSPECIFIED FORMULATION 2021 88 complet ed [facility] COVID-19 (MODERNA), MRNA, LNP-S, PF, 100 MCG OR 50 MCG DOSE [address] [facility] TDAP 2020 115 complet ed [facility] INFLUENZA, UNSPECIFIED FORMULATION 2020 88 complet ed [facility] COVID-19 (MODERNA), MRNA, LNP-S, PF, 100 MCG/0.5 ML DOSE 2 2020 207 complet ed MOD; [id number]; 1 [facility] COVID-19 (MODERNA), MRNA, LNP-S, PF, 100 MCG/0.5 ML DOSE 1 2020 207 complet ed MOD; [id number]; 1 [facility] PNEUMOCOCCAL CONJUGATE PCV 13 2018 133 complet ed [facility] PNEUMOCOCCAL POLYSACCHARID E PPV23 2017 33 complet ed [facility] PNEUMOCOCCAL POLYSACCHARID E PPV23 2016 33 complet ed [facility] INFLUENZA, SEASONAL, INJECTABLE 2016 141 complet ed [facility] INFLUENZA, UNSPECIFIED FORMULATION 2015 88 complet ed [facility] PNEUMOCOCCAL CONJUGATE PCV 13 2015 133 complet ed [facility] INFLUENZA, UNSPECIFIED FORMULATION 2014 88 complet ed local [facility] INFLUENZA, UNSPECIFIED FORMULATION 2013 88 complet ed [facility] ZOSTER (HISTORICAL) 2012 121 complet ed [facility] INFLUENZA, UNSPECIFIED FORMULATION 2011 88 complet ed [facility] Medical [facility] INFLUENZA, UNSPECIFIED FORMULATION 2010 88 complet ed [facility] TDAP 2010 115 complet ed Site: Left Deltoid [facility] INFLUENZA, UNSPECIFIED FORMULATION 2009 88 complet ed [facility] NOVEL INFLUENZA-H1N 1-09, ALL FORMULATIONS 2008 128 complet ed [facility] TD(ADULT) UNSPECIFIED FORMULATION 2003 139 complet ed routine [facility] Vital Signs Combined list of inpatient and outpatient Vital Signs from Department of Defense and Veterans Affairs, ranging from 12 months to all on record, depending upon the facility. Vital Sign Value Date Comments Source Encounters Combined list of: 1) Encounters from Department of Veterans Affairs facilities going back up to thelast 18 months. 2) Encounters from the Department of Defense facilities going back up to 280 months. Location Location Details Encounter Type Encounter Number Reason For Visit Attending Provider ADM Date DC Date Status Disposition Source [facility] Outpatient Encounter [id number] CITLALLI CHRISTIANSEN SA 02/09 [facility] Outpatient Encounter [id number] 03/26 [facility] OFFICE O/P EST MOD 30-39 MIN [id number] Diagnos is: ICD-10- CM R06.00 Dyspnea , unspeci fied
T[facility] LUNA 04[facility]25 [facility]-10 MIN [id number] Diagnos is: ICD-10- CM Z77.29 Contact with and exposur e to other hazardo us substan harvinder<br/ > CITLALLI CHRISTIANSEN SA 04/27 [facility] Outpatient Encounter [id number] 05/07 [facility] Outpatient Encounter [id number] 06/17 [facility] HEARING AID REPAIR/MOD IFYING [id number] Diagnos is: ICD-10- CM H90.3 Sensori neural hearing loss, bilater al
DAHL,MONSE Ruvalcaba [place] 07/03 [facility] HEARING AID SUP/ACCESS /DEV [id number] Diagnos is: ICD-10- CM Z46.1 Encount er for fitting and adjustm ent of hearing aid<br/ > DAHL,MONSE SAEEDHERINE 08/08 [facility] ADMN SARSCOV2 VACC 1 DOSE [id number] Diagnos is: ICD-10- CM Z23 Encount er for immuniz ation<b r/> MARK CALLOWAY 08/08 [facility] HEARING AID FITTING/CH ECKING [id number] Diagnos is: ICD-10- CM Z46.1 Encount er for fitting and adjustm ent of hearing aid<br/ > DAHL,MONSE SAEEDHERINE 10/02 [facility] OFFICE O/P EST MOD 30 MIN [id number] Diagnos is: ICD-10- CM R06.00 Dyspnea , unspeci fied
Jeet NATHAN 10/29 [facility] HEARING AID FITTING/CH ECKING [id number] Diagnos is: ICD-10- CM Z46.1 Encount er for fitting and adjustm ent of hearing aid<br/ > DAHL,MONSE Ruvalcaba [place] 11/13 [facility] HEARING AID FITTING/CH ECKING [id number] Diagnos is: ICD-10- CM Z46.1 Encount er for fitting and adjustm ent of hearing aid<br/ > DAHL,MONSE Ruvalcaba [place] 12/04 [facility] OFFICE O/P NEW LOW 30 MIN [id number] Diagnos is: ICD-10- CM H17.9 Unspeci fied corneal scar and opacity
LEONILA GLASS E 12/26 [facility] HEARING AID FITTING/CH ECKING [id number] Diagnos is: ICD-10- CM Z46.1 [facility]<br/ > MERLENE LUIS 02/05 [facility] Social History Combined list of available smoking, tobacco, and other social history from Department of Defense and Veterans Affairs facilities. Social History Type Response Date Comment Sourc e Tobacco smoking status [facility] VA-TOBACCO FORMER USER 04/25/2023 [facility] History of tobacco use VA-TOBACCO QUIT 1 5 YRS OR MORE 04/25/2023 [facility] History of tobacco use VA-TOBACCO NEVER USED 08/03/2021 [facility] History of tobacco use VA-TOBACCO QUIT 1 5 YRS OR MORE 05/10/2020 [facility] History of tobacco use VA-TOBACCO FORMER USER 04/16/2019 [facility] History of tobacco use QUIT TOBACCO USE > 7 YEARS AGO 01/04/2018 [facility] History of tobacco use QUIT TOBACCO USE > 7 YEARS AGO 12/21/2016 [facility] History of tobacco use QUIT TOBACCO USE > 7 YEARS AGO 10/29/2015 [facility] History of tobacco use QUIT TOBACCO USE > 7 YEARS AGO 01/09/2011 10 Years [facility]
--- OUTSIDE RECORDS SUMMARY | 2024-05-12 17:04 | XMS_ITS | Encounter Summary ---
Author Organization [facility] Address [address] [place] [address] Care Team Providers Care Director Water And Waste Services Name Role Phone Lorrie Conte MD Primary Care Provider [phone] Encounter Details Date Type Department Care Team (Latest Contact Info) Description 03/14/2024 Specialty Pharmacy [facility] [address] [place], [place] [address] [place] [facility] Refill Coordination Outreach for HIV Social History Tobacco Use Types Packs/Day Years Used Date Smoking Tobacco: Former Cigarettes 0 09/17/1986 - 09/17/1988 Smokeless Tobacco: Never Alcohol Use Standard Drinks/Week Comments Yes 0 (1 standard drink = 0.6 oz pur e alcohol) Occasional PHQ-2 Answer Date Recorded PHQ-2 Score 0 04/18/2020 Interpersonal Safety Answer Date Record ed Physically Hurt Never 04/18/2020 Verbally Threaten Not on file 04/18/2020 Sex and Gender Information Value Date Recorded Sex Assigned at Not on file Gender Identity Not on file Sexual Orientation Not on file documented as of this encounter Functional Status Functional Status Response Date of Assess ment Are you deaf or do you have serious difficulty h earing? No 05/14/2019 Are you blind or do you have serious difficulty seeing, even when wearing glasses? No 05/14/2019 Do you have serious difficul ty walking or climbing stairs? (5 years old or older) No 05/14/2019 Do you have difficulty dress ing or bathing? (5 years old or older) No 05/14/2019 Because of a physical, menta l, or emotional condition, does this person have difficulty doing errands alone such as visiting a doctor's office or shopping? No 06/18/2019 Cognitive Status Response Date of Assessm ent Because of a physical, menta l, or emotional condition, does this person have serious difficulty concentrating, remembering, or making decisions? No 06/18/2019 documented as of this encounter Plan of Treatment Upcoming Encounters Date Type Department Care Team (Latest Contact Info) Description 05/13/2024 9:15 EDT Ancillary Procedure [facility] Cardiology - [address] [place] [address] History of aortic valve replacement; Elevated blood pressure reading 05/13/2024 11:00 EDT Office Visit [facility] Cardiology [address] [place] [address] Jose Stauffer MD [address] [facility] [address] [place] [address] documented as of this encounter Visit Diagnoses Not on filedocumented in this encounter Care Teams Director Water And Waste Services Relationship Specialty Start Date End Date Lorrie Conte MD PCP - General 10/19/17 documented as of this encounter
--- OUTSIDE RECORDS SUMMARY | 2024-05-12 17:04 | XMS_ITS | Encounter Summary ---
Author Organization [facility] Address [address] [place] [address] Care Team Providers Care Property Economist Name Role Phone Lorrie Conte MD Primary Care Provider [phone] Encounter Details Date Type Department Care Team (Latest Contact Info) Description 04/15/2024 Specialty Pharmacy [facility] Specialty [facility] [address] [place], [place] [address] [place] [facility] Refill Coordination Outreach for HIV Social History [...] Info) Description 05/13/2024 9:15 EDT Ancillary Procedure [facility] Cardiology - [address] [place] [address] History of aortic valve replacement; Elevated blood pressure reading 05/13/2024 11:00 EDT Office Visit [facility] Cardiology [address] [place] [address] Jose Stauffer MD [address] [facility] [address] [place] [address] documented as of this encounter Visit Diagnoses Not on filedocumented in this encounter Care Teams Property Economist Relationship Specialty Start Date End Date Lorrie Conte MD PCP - General 10/19/17 documented as of this encounter
--- OUTSIDE RECORDS SUMMARY | 2024-05-12 17:04 | XMS_ITS | Encounter Summary ---
Author Organization [facility] Address [address] [place] [address] Care Team Providers Care Washer Meat Name Role Phone Lorrie Conte MD Primary Care Provider [phone] Encounter Details Date Type Department Care Team (Late st Contact Info) Description 06/12/2023 Specialty Pharmacy [facility] Ambulatory [facility]acy - [facility] [address] [place], [place] [address] [place], [facility] Social History Tobacco Use Types Packs/Day Years [...] Info) Description 05/13/2024 9:15 EDT Ancillary Procedure [facility] Cardiology - [address] [place] [address] History of aortic valve replacement; Elevated blood pressure reading 05/13/2024 11:00 EDT Office Visit [facility] Cardiology [address] [place] [address] Jose Stauffer MD [address] [facility] [address] [place] [address] documented as of this encounter Visit Diagnoses Not on filedocumented in this encounter Care Teams Washer Meat Relationship Specialty Start Date End Date Lorrie Conte MD PCP - General 10/19/17 documented as of this encounter
--- OUTSIDE RECORDS SUMMARY | 2024-05-12 17:04 | XMS_ITS | Encounter Summary ---
Author Organization [facility] Address [address] [place] [address] Care Team Providers Care Print Shop Stenographer Name Role Phone Lorrie Conte MD Primary Care Provider [phone] Reason for Visit * Reason Comments Follow-up Encounter Details Date Type Department Care Team (Late st Contact Info) Description 11/05/2023 9:30 EST Telemedicine [facility] Infectious Disease [address] [id number] Javid Parker, DO [address] [facility], [address] [place] [address] Asymptomatic HIV infection (HCC-CMS) (Primary Dx) Social History Tobacco Use Types Packs/Day Years [...] No 06/18/2019 documented as of this encounter Ordered Prescriptions Prescription Sig Dispensed Refills Start Date End Da te bictegravir-emtricitabine -tenofovir alafenamide (BIKTARVY) 50-200-25 mg per tablet Take 1 Tablet by mouth daily for 360 days. 30 Tablet 11 11/05/2023 10/30/2024 bictegravir-emtricitabine -tenofovir alafenamide (BIKTARVY) 50-200-25 mg per tabletIndications:Asympto matic HIV infection (HCC-CMS) Take 1 Tablet by mouth daily. 30 Tablet 11 11/05/2023 11/05/2023 bictegravir-emtricitabine -tenofovir alafenamide (BIKTARVY) 50-200-25 mg per tablet Take 1 Tablet by mouth daily for 360 days. 30 Tablet 11 11/05/2023 11/05/2023 documented in this encounter Progress Notes * Javid Parker, DO - 11/05/2023 0930 EST I spent a total of 30 minutes on the date of this encounter meeting with the patient and reviewing documentation/coordinating care as described in the above note. No procedures were performed at the time of the visit. Location of pt: home Location of provider: office [facility] Division of Infectious Disease Follow up/Progress Note Telephone visit 11/05/23 9:54 The concept of ???Telemedicine?? has been described to the patient.? Patient has been informed of the anticipated benefits and possible risks.? Patient understands the information provided regardingtelemedicine, has had the opportunity to ask questions about this information, and all questions have been answered to patient???s satisfaction. Patient consents for the use of telemedicine in his/her medical care and authorizes the transmission of any relevant medical information to providers and their staff involved in patient???s medical or mental health care. I spent a total of 30 minutes with Jose Fisher today and 30 minutes of that time was spent in counseling and coordination of care as described in the progress note. HPI Mr. Fisher is a 72 y.o. male with history significant for newly diagnosed HIV who presents withfollow up. HIV diagnosed in March 2019 by PCM with a positive 4th gen Ab/Ag test done as part of a viral syndrome work up . Initial CD4 done in Apr was 529 at 16%, HIV VL 94,797. Pt started on Biktarvy on 26 April 2019 with perfect adherence. Genotype showed no evidence of resistance. On next set of labs 16 May 2020 (done due to AVR surgery ), VL down to 386 and CD4 616 at 17%. Most recent labs from Oct 2023 VL < 20, CD4 Oct 2023 855 We suspect he acquired HIV infection in [facility] (on/about 13 Feb 2019) from a female whom he didn'tknow very well and I suspect could have been a sex worker. Pt denies MSM. He [facility] by [facility]M) and done for just primary care-routine screening. Biktarvy started on 26 April 2020,however pt noted SOB develop several days prior to starting ART.He was seen by PCM who got an echo that showed severe AV regurg and was referred to CT surgery at [facility] where on 22 May 2019, pt had AVR and CABG X2. Perfect adherence with Biktarvy and has a great supply thanks to the pharmacy mail system. He has two daughters locally that visit him frequently. Patient had a partial knee replacement in Aug 2020. He had a great trip with an old friend to [place] for about 7 weeks the summer 2021 which hereally enjoyed and suspects he will schedule another trip summer 2023. He also traveled to [facility] for vacation November 2022 and got a brief episode of travelers' diarrhea which resolved. 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 Pt will go back to [place] for travel in Summer 2023. Review of Systems: 10-point review of systems is negative except as noted in the HPI. Past Medical History: BPH Acute retroviral syndrome summer 2018 esophageal candidiasis 2019 Tachycardia work up with holter monitor in past Thrombocytopenia: Baseline platelets range from 80-90. 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 DJD Severe AV regurg dx 2019 Positional hypoxemia, etiology unknown Past Surgical History: Knee injections for DJD. 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 Sexual: Patient denies MSM. His last sexual contact prior to the one in [facility] in 2018, was in [place] around 2011. Patient sounds like he spent less than a week with this woman that he met in [facility]. He does not know anything about her history. Exercise: Busy with yard work. Travel: From [place]. 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 Physical Exam AAOx3, very pleasant, Wt 203 pounds, blood pressure 132/60 25 April 2019 HIV genotype no resistance genes. Assessment and Plan: #) HIV - Diagnosed in March 2019, baseline CD4 count 529 at 16% and initial HIV viral load 94,000. Genotypeshows no resistance genes. - Prior regimens include none - Currently on Biktarvy started 26 April 2019. - Oct 2023 CD4 855 - HIV viral load Current VL Oct 2023 < 20 - OI prophylaxis: NA - Compliance: Perfect - Sexual activity: None since [facility] January 2019 - G/C, RPR: April 2019 RPR nonreactive. April 2019 urine gonorrhea chlamydia negative - HBV/HCV: Hepatitis A, HCV antibody negative, hepatitis B surface antigen negative, hepatitis B core antibody negative, hepatitis B surface antibody negative, - Dental exam normal dentition 2018 - HLA B 5701 negative -QuantiFERON gold -March 2019. Toxoplasma IgG negative, toxoplasma IgM negative, CMV IgG positive, CMV IgM negative. - Follow up with me in 6 months. Zoom visit seem to work very well. #) Health maintenance - Cholesterol: Per PCM - Diabetes: Screening per PCM - Colonoscopy: Screening colonoscopy 2018 tubular adenoma. - Immunizations: flu shot fall 2021, Tdap 2013, shingles 2013, pneumovax 23 2016. COVID vaccine 2020, omicron booster up-to-date. We think his Prevnar 13 and hepatitis B was taken care of by his primary care provider. Got his RSV, flu and covid booster fall 2022. #) Orthopneic dyspnea, etiology never clear, patient given CPAP machine but it does not sound like he needs to use it anymore. #) Status post aortic valve replacement 2018. Patient reminded he needs antibiotics around the timeof dental work and to inform his dentist of the presence of the valve. Sees [facility] cardiology in follow up summer 2023 It has been a pleasure seeing Mr. Fisher in clinic today. Javid Parker DO Pager [phone] Infectious Diseases Currently employed: No Adherence counseling: Yes Linguistic services: No Patient with HIV (-) partner: No HIV (-) partner tested within the last 12 months: Not applicable Partner notification discussed: Not applicable Social History Social History Tobacco Use Smoking Status Former Smoker Years: 2.00 Types: Cigarettes Last attempt to quit: 09/17/1988 Years since quittin.5 Smokeless Tobacco Never Used Smoking cessation discussed: No Gonorrhea and chlamydia testing done in the past year: No, not sexually active or in a mutually monogamous relationship over the past 12 mos Oral exam done at this visit: No Seen by dentist in the past year. Yes Referred to dentist at this visit: No Housing: Stable HIV risk reduction counseling: Yes Screened for mental health: Yes Screened for substance abuse: Yes Current substance use (used more than once in the past 12 months): none documented in this encounter Miscellaneous Notes * Addendum Note - Quincy Allan RPH - 11/05/2023 0930 ESTAddended by: QUINCY ALLAN on: 11/05/2023 11:17 Modules accepted: Orders documented in this encounter Plan of Treatment Upcoming Encounters Date Type Department Care Team (Latest Contact Info) Description 05/13/2024 9:15 EDT Ancillary Procedure [facility] Cardiology - [facility] [address] [place] [address] History of aortic valve replacement; Elevated blood pressure reading 05/13/2024 11:00 EDT Office Visit [facility] Cardiology - [facility] [address] [place] [address] Jose Stauffer MD [address] [place] [address] documented as of this encounter Visit Diagnoses Diagnosis Asymptomatic HIV infection (HCC-CMS)- Primary Asymptomatic human immunodeficiency virus (HIV) infection status History of aortic valve replacement Heart valve replaced by other means Elevated blood pressure reading Elevated blood pressure reading without diagnosis of hypertension documented in this encounter Discontinued Medications Medication Sig Discontinue Reason Start Date End Da te bictegravir-emtricitabine -tenofovir alafenamide (BIKTARVY) 50-200-25 mg per tabletIndications:Asympto matic HIV infection (HCC-CMS) Take 1 Tablet by mouth daily. Reorder 10/16/2023 11/05/2023 bictegravir-emtricitabine -tenofovir alafenamide (BIKTARVY) 50-200-25 mg per tabletIndications:Asympto matic HIV infection (HCC-CMS) Take 1 Tablet by mouth daily. 11/05/2023 11/05/2023 bictegravir-emtricitabine -tenofovir alafenamide (BIKTARVY) 50-200-25 mg per tablet Take 1 Tablet by mouth daily for 360 days. 11/05/2023 11/05/2023 documented as of this encounter Care Teams Print Shop Stenographer Relationship Specialty Start Date End Date Lorrie Conte MD PCP - General 10/19/17 documented as of this encounter
--- OUTSIDE RECORDS SUMMARY | 2024-05-12 17:04 | XMS_ITS | Encounter Summary ---
Author Organization [facility] Address [address] [place] [address] Care Team Providers Care Cryogenics Engineer Name Role Phone Lorrie Conte MD Primary Care Provider [phone] Encounter Details Date Type Department Care Team (Latest Contact Info) Description 12/17/2023 Specialty Pharmacy [facility] [address] [place], [place] [id number] [facility] Refill Coordination Outreach for HIV [...] Info) Description 05/13/2024 9:15 EDT Ancillary Procedure [facility] Cardiology - [address] [place] [address] History of aortic valve replacement; Elevated blood pressure reading 05/13/2024 11:00 EDT Office Visit [facility] Cardiology [address] [place] [address] Jose Stauffer MD [address] [facility] [address] [place] [address] documented as of this encounter Visit Diagnoses Not on filedocumented in this encounter Care Teams Cryogenics Engineer Relationship Specialty Start Date End Date Lorrie Conte MD PCP - General 10/19/17 documented as of this encounter
--- OUTSIDE RECORDS SUMMARY | 2024-05-12 17:04 | XMS_ITS | Encounter Summary ---
Author Name [facility] [place] [facility] [place] Organization [facility] [place] Address [address] [place] [address] Care Team Providers Care Underground Mine Machinery Mechanic Name Role Phone DESIREE MC Primary Care Provider ANGELINA Gracia Unavailable Unavailable [...] PART A Jul 18, 2015 PART A [id number] [facility] [place] PATIENT MEDICARE (WNR) MEDICARE (M) PART B Jul 18, 2015 PART B [id number] [facility] BRENDON CHEUNGYESSEN[place] PATIENT [facility] [place] A[place] Jun 17, 2010 MEDICAI D [id number] [place] PATIENT [employer] MEDICARE SUPPLEMEN DILSHAD PLAN F May 01, 2017 PLAN F [id number] BRENDON CHE[place] PATIENT Selected Encounter This section includes the information on record at [place] for the Encounter. Date/Time Encounter Type Encounter Description Reason Provider Source Dec 27, 2023 10:00 AM OFFICE O/P NEW LOW 30 MIN OPTOMETRY ICD-10-CM H17.9 Unspecified corneal scar and opacity JEFF PRASAD Encounter Template Text not used by [facility] Assessments - Encounter Diagnoses This section includes the primary and secondary diagnoses documented for the Encounter. Date/Time Primary/Secondary Diagnosis Diagnosis Name Provider Source Dec 27, 2023 11:43 AM PRIMARY Unspecified corneal scar and opacity NARGIS RUIZ [facility] Dec 27, 2023 11:43 AM SECONDARY Dry eye syndrome of bilateral lacrimal glands NARGIS RUIZ [facility] Dec 27, 2023 11:43 AM SECONDARY Endothelial corneal dystrophy, bilateral NARGIS RUIZ [facility] Dec 27, 2023 11:43 AM SECONDARY Ocular hypertension, bilateral NARGIS RUIZ [facility] Dec 27, 2023 11:43 AM SECONDARY Presbyopia NARGIS RUIZ [facility] Dec 27, 2023 11:43 AM SECONDARY Presence of intraocular lens NARGIS RUIZ [facility] Dec 27, 2023 11:43 AM SECONDARY Puckering of macula, left eye SIOBHAN MC [facility] Dec 27, 2023 11:43 AM SECONDARY Round hole, right eye SIOBHAN MC [facility] Dec 27, 2023 11:43 AM SECONDARY Vitreous degeneration, bilateral SIOBHAN MC [facility] Plan of Treatment: Future Appointments (+ 6 months) and Future Tests (+/- 45 days) The Plan of Treatment section includes future care activities for the patient from all [place] treatmentfacilities. This section includes future appointments and future orders which are active, pending or scheduled. Future Appointments This section includes appointments that were scheduled to occur 6 months from the date of the Encounter, up to a maximum of 20 appointments. The data comes from all [place] treatment facilities. Appointment Date/Time Appointment Type Appointme nt Facility Name February 06, 2024 11:30 AM AMBULATORY - REHAB [facility] Social History: Smoking Status (Most current) and Tobacco Use (All prior to encounter date) This section includes the most current, and the historical, smoking and tobacco- related health factors from the [facility] facility where the Encounter took place. Current Smoking Status This section includes the most current smoking, or tobacco-related health factor, from the [facility] facility where the Encounter took place. Date/Time Current Smoking Status Comment Brianna ity Apr 25, 2023 01:30 PM VA-TOBACCO QUIT 15 YRS OR MORE [facility] Tobacco Use History This section includes a history of the smoking, or tobacco-related health factors, that were collected on or before the date of the Encounter. The data comes from the [place] facility where the Encounter took place. Date/Time Smoking Status/Tobacco Use Comment F acility Apr 25, 2023 01:30 PM VA-TOBACCO QUIT 15 YRS OR MORE [place] [facility] Aug 03, 2021 10:30 AM VA-TOBACCO NEVER USED [place] [facility] May 10, 2020 03:00 PM VA-TOBACCO FORMER USER [place] [facility] May 10, 2020 03:00 PM VA-TOBACCO QUIT 15 YRS OR MORE [place] [facility] Apr 16, 2019 12:07 PM VA-TOBACCO FORMER USER [place] [facility] Apr 16, 2019 12:07 PM VA-TOBACCO QUIT 15 YRS OR MORE [place] [facility] Jan 04, 2018 09:53 AM QUIT TOBACCO USE > 7 YEARS AGO [place] [facility] Dec 21, 2016 09:33 AM QUIT TOBACCO USE > 7 YEARS AGO [place] [facility] Oct 29, 2015 08:35 AM QUIT TOBACCO USE > 7 YEARS AGO [place] [facility] Jan 09, 2011 10:18 AM QUIT TOBACCO USE > 7 YEARS AGO 10 Years [place] [facility] Encounter Notes: All associated encounter notes This section contains the clinical notes associated to the Encounter. Date/Time Encounter Note(s) Provider Source Dec 27, 2023 10:05 AM EYE CONSULT: LOCAL TITLE: Eye Resident Consult Note STANDARD TITLE: EYE CONSULT DATE OF NOTE: DEC 27, 2023@10:05 ENTRY DATE: DEC 27, 2023@10:06:09 AUTHOR: SIOBHAN MC EXP COSIGNER: JEFF PRASAD URGENCY: STATUS: COMPLETED NEW OR ESTABLISHED PATIENT OPHTHALMIC EXAMINATION CONSULTATION, SPECIALTY CODE OR E/M SERVICE Active Outpatient Medications (excluding Supplies): Active Outpatient Medications Status 1) RSV VACCINE LYPHL INJ SYR KIT INJECT 0.5ML ACTIVE INTRAMUSCULARLY ONCE FOR RSV PREVENTION PER SHARED CLINICAL DECISION MAKING Active Non-VA Medications Status 1) Non-VA ASPIRIN [...] DROP BOTH EYES ACTIVE TWICE A DAY 9 Total Medications Allergies/Adverse Reactions: Patient has answered NKA HGB A1C: 5.6 (08/03/21 11:27) GLU: 114 (08/03/21 11:27) BUN: 20 (08/03/21 11:27) B/P: 151/67 (10/29/2023 14:34) BODY MASS INDEX - NO HEIGHTS FOUND Active problems - Computerized Problem List is the source for the followin. Left bundle branch block 2. Dyspnea 3. Exposure to potentially hazardous substance 4. HIV - Human Immunodeficiency Virus Infection ([facility] [id number]) 5. Uveitis (SNOMED CT 134109105) 6. Thrombocytopenia 7. Sensorineural hearing loss (SNOMED CT 46671808) 73 year old WHITE MALE, NEW / ESTABLISHED patient CHIEF COMPLAINT AND HISTORY OF PRESENT ILLNESS (HPI): # CEE # Hx Corneal Surgery Transplant OS x 12/27/22 - Pt has appointment with Dr. Soto in [place] in 1 week for corneal follow up. - pred mild taper to once a day f/u in [address] Payne @ [facility] [place] 1 month for ocular HTN # Ocular Hypertension OU - Timolol BID OU last taken: yesterday night - Brimonidine BID OU last taken: yesterday night - Fairly compliant with drops, maybe missing drops 1-2 x a week. - Managed by Dr. Aguila @ [facility] # Refractive Error w/ Presbyopia OU - Pt reports clear and comfotable vision at distance and near in the right eye. longstanding blur in the left eye. # Hx Ocular Migraines - longstanding and managed by PCP. Pt is asymptomatic today and normally gets symptoms ~4 times a month. Pt is happy with current treatment by outside provider. # Hx of HIV - pt doctor is happy with follow up. - Per PCP note, CD4 from [facility] 855, HIV 1 quant 47. # Pt denies flashing lights, floaters, double vision, and sudden loss in vision. Neurological and Psychiatric Status: Orientation: Oriented to person, time, place Mood and Affect: normal, no agitation, no anxiety, no depressive behaviors in clinic OCULAR HISTORY 1. Pseudophakia OU 2. Epiretinal membrane OS>OD 3. 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 Ocular Migraines 6. Corneal transplant OS DSAEK @ [facility] 12/27/2022 - pred taper to once a day f/u in [address] Aguila 7. LPI OS 8. Fuch's Corneal Dystophy OU 9. PVD OS 10. Ocular Hypertension OU - pred taper to once a day f/u in [address] Aguila 11. H/o Chronic Uveitis since 27YO VISUAL ACUITY (with correction) OD: 20/20 OS: 20/60 PH: 20/50 Current Rx OD: -0.50 -0.50 x 075 OS: -0.75 -2.25 x 023 Add: +2.50 Auto Refraction OD: -0.50 -0.50 x 088 OS: -0.50 -3.50 x 030 REFRACTION and BEST-CORRECTED VISION OD: -0.50 -0.50 x 075 20/20 OS: -0.50 -2.75 x 025 20/50+1 Add: +2.50 OCULAR MOTILITY (EOM): Full without diplopia or pain OU, pursuits and saccades intact OU CONFRONTATION VIS LANDRY: full to finger counting OD & OS PUPILS: PERRLA, NO APD PRESENT OU ORBITS/ADNEXA: Normal OU ANTERIOR SEGMENT AND SLIT LAMP EXAM: Lids/Lashes: OD: 1+ MGD, telangectasia, tr debris OU OS: 1+ MGD, telagectasia, tr debris OU Scleral and Conjunctiva: OD: Ping T, concretions T OS: Ping T, concretions T Cornea: OD: tiny round central opacity to endo diffuse guttata, 2+ diffuse SPK, TBUT 4 sec OS: DSAEK scar 360, stromal scar nasal into visual axis w/ resolving host vessels nasal, 1+ diffuse edema, tr inf endo pigment, 3- diffuse SPK, TBUT 2 sec, (-) neovascularization Anterior Chamber: clear and free of cells or flare OU Von Berkley Angle estimation: OD: 4x4 OS: 4x4 Iris: normal/intact OU/ no neovascularization present ou OS: iridectomy scar @ 11, TID nasally Tonometry OD 21 OS 20 @ 1020 iCare OD 25 OS 23 @ 1035 GAT DILATION OU: PATIENT EDUCATED ON SIDE EFFECTS OF DILATION PRIOR TO DROP INSTILLATION. SIDE EFFECT DISCUSSED INCLUDE LIGHT SENSITIVITY AND BLURRED VISION AT NEAR. 1 gtt 1% Tropicamide 1 gtt 2.5% Phenylephrine INTERNAL EYE EXAMINATION BY SLIT LAMP, FUNDUSCOPY AND BINOCULAR INDIRECT OPHTHALMOSCOPE: Lens: OD: PCIOL, well centered, diffuse PCO OS: PCIOL, well centered, clear Vitreous: OD: syneresis present, PVD OS: syneresis present, PVD, 1 drusen nasal to ONH Nerve: RIM INTACT AND WITHOUT FOCAL DEFECTS OR PALLOR OU OD C/D: 0.20 H/V, small nerve (-) angioid streaks/edema OS C/D: 0.15 H/V, small nerve (-) angioid streaks/edema Macula: Even pigment, NO macular edema OU OD: tr mottling OS: tr mottling, trace temp parafoveal non-tractional ERM Vessels: Tortuisity of vessels OU Mid-peripheral and Peripheral Retina: OD: old atrophic operculated hole I periphery reticular degeneration jackeline periphery OS: small ~1/4 choroidal nevus inf jackeline to macula: (-) lipo/drusen w/ regular boarders IT & T poor view 2' corneal opacity ASSESSMENT 1. S/p Corneal Transplant OS with mild corneal edema - DSAEK @ [facility] 12/27/2022 - h/o Salzmans Degeneration OS 2. Ocular Hypertension OU - IOP today GAT 25/23 - Pt did not take drops this morning - s/p LPI OS 3. HIV without Ocular Complication OU - well controlled 4. Dry Eye Syndrome OU, Superficial Punctate Keratitis OU 5. Fuch's Corneal Dystrophy OU 6. Pseudophakia OU 7. Epiretinal Membrane OS - trace, non-tractional 8. Operculated Hole OD 9. Posterior Vitreous Detachment OU 10. Choroidal Nevus OS 11. Refractive Error w/ Presbyopia OU PLAN 1. Pt edu. Continue follow up with Dr. Soto at [facility]. RTC DAVID if sudden onset pain, or sudden loss in vision. Taper Pred Mild QD OS ut dict by Dr. Soto. 2. Pt edu. Emphasized importance of compliance with treatment plan. Continue timolol BID OU and Brimonidine BID OU. Continue care with Dr. Aguila [facility]. 3. Pt edu. Continue care with PCP. RTC with sudden visual changes. Otherwise monitor annually. 4/5. Pt edu on use of 1 drop of artifical tears 4x a day in each eye (Rx AT, mail). Pt ed on use of warm compresses over both eyes for 10 min at night. Pt ed on importance of good lid hygeine. 6. Monitor 7. Pt edu on the use of at home amsler grid for self monitoring. Pt should RTC sooner if changes in vision/distortion. Monitor. 8/9. Pt edu. RTC DAVID with any flashes/new floaters/curtains/changes in vision. Monitor at next exam or sooner with changes. 10. Pt edu on the use of UV protection. Normal appearance today. Monitor 11. Pt given final spec rx today. Monitor RTC ORDER: 1 year for CEE PATIENT EDUCATION: see above STUDENT SUPERVISION: Optometry student Nargis Ruiz participated in the care of this patient. The student performed an initial history, review of systems, medication review, and ophthalmic examination. The above note represents care provided by me and is NOT a student note. RESIDENT SUPERVISION: I, Siobhan Mc, have seen and discussed this patient with my supervising doctor. My supervising doctor was present for and/or directly examined this patient. My supervising doctor agrees with my assessment and plan and is identified as a cosigner on this note. Supervising Refined Syrup Operator: Jeff Prasad O.D. Total time spent during this encounter, including [id number] and non-face time, was 50min Note complete (xx) /linda/ JEFF PRASAD Staff Refined Syrup Operator Signed: 12/27/2023 16:55 for SIOBHAN MC Optometry Resident /linda/ JEFF PRASAD Staff Refined Syrup Operator Cosigned: 12/27/2023 16:55 JEFF PRASAD [facility]
--- OUTSIDE RECORDS SUMMARY | 2024-05-12 17:04 | XMS_ITS | Encounter Summary ---
Author Organization [facility] Address [address] [place] [address] Care Team Providers Care Fraud Analyst Name Role Phone Lorrie Conte MD Primary Care Provider [phone] Encounter Details Date Type Department Care Team (Late st Contact Info) Description 10/11/2023 Lab Requisition [facility] Pathology & Laboratory Medicine - [facility] [address] [place] [address] Outr Resulting Lab, Provider Social History Tobacco Use Types Packs/Day Years [...] Info) Description 05/13/2024 9:15 EDT Ancillary Procedure [facility] Cardiology - [address] [place] [address] History of aortic valve replacement; Elevated blood pressure reading 05/13/2024 11:00 EDT Office Visit [facility] Cardiology - [address] [place] [address] Jose Stauffer MD [address] [facility] [address] [place] [address] documented as of this encounter Procedures Procedure Name Priority Date/Time Associated Diagnosis Comments PSA TOTAL, DIAGNOSTIC Routine 10/11/2023 9:12 EST documented in this encounter Results * PSA TOTAL, DIAGNOSTIC (10/11/2023 9:12 EST) PSA 3.4 <=6.5 ng/mL 10/11/2023 18:21 EST [facility] Blood VENOUS BLOOD / Unknown 10/11/2023 9:12 EST 10/11/2023 17:23 EST Narrative [facility] - 10/11/2023 18:21 EST NOTE: Serum PSA concentration should not be interpreted as absolute evidence for the presence or absence of malignant disease. Assayed on Siemens ADVIA Centaur XPT using chemiluminescent technology.??Values obtained by using different assay methods cannot be used interchangeably. Provider Outr Resulting Lab CHEMISTRY & BLOOD GAS ORDERABLES [facility] [address] [place] [address] documented in this encounter Visit Diagnoses Not on filedocumented in this encounter Care Teams Fraud Analyst Relationship Specialty Start Date End Date Lorrie Conte MD PCP - General 10/19/17 documented as of this encounter
--- OUTSIDE RECORDS SUMMARY | 2024-05-12 17:04 | XMS_ITS | Encounter Summary ---
Author Organization [facility] Address [address] [place] [address] Care Team Providers Care Control Panel Operator Name Role Phone Lorrie Conte MD Primary Care Provider [phone] Encounter Details Date Type Department Care Team (Latest Contact Info) Description 10/16/2023 Specialty Pharmacy [facility] [address] [place], [place] [id number] [place], [facility] Refill Coordination Outreach for HIV, One-time Clinical Outreach (1 time occurrence) for HIV Social History Tobacco Use Types [...] No 06/18/2019 documented as of this encounter Progress Notes * Wendy Lozano - 10/16/202329 EST Specialty Pharmacy Documentation Medication: biktarvy Clinic: [facility] ID Reason for Encounter: outreach Notes: req new rx Follow up date: 10/17 Follow up reason: refill * Long Allan [facility] - 10/16/2023928 EST [facility] Infectious Disease Clinic Jose Fisher is a 73 y.o. male being treated with bictegravir-tenofovir alafenamide-emtricitabine (Biktarvy) for HIV. The patient will continue this therapy until lack of efficacy after an adequate medication trial or unacceptable adverse effects support discontinuation. Spoke with Bari via telephone today. Bari reports doing well on his Biktarvy and denies missed doses or any perceived issues, including side effects. Bari has no questions or concerns for the specialty pharmacy or for the clinic today. Contact Method for Follow Up: Telephone Medications: Current Outpatient Medications Medication Instructions amoxicillin (AMOXIL) 500 mg capsule TAKE FOUR CAPSULES BY MOUTH ONE HOUR PRIOR TO DENTAL APPOINTMENT aspirin 81 mg, oral, DAILY atorvastatin (LIPITOR) 20 mg, oral, DAILY jcskvgahfbp-kxvqfnpizcqab-lvxxahmun alafenamide (BIKTARVY) 50-200-25 mg per tablet 1 Tablet, oral, DAILY brimonidine (ALPHAGAN) 0.2 % ophthalmic solution INSTILL 1 DROP INTO BOTH EYES TWO TIMES A DAY melatonin 3 mg, oral, AT BEDTIME prednisoLONE (PRED FORTE) 1 % ophthalmic suspension INSTILL ONE DROP IN THE LEFT EYE FOUR TIMES A DAY TAMSulosin (FLOMAX) 0.4 mg, oral, DAILY, Take one capsule by mouth every day 30 minutes after the same mealtime each day for prostate/urinary symptoms. timolol (TIMOPTIC) 0.5 % ophthalmic solution 1 Drop, both eyes, 2 TIMES DAILY I completed a complete review of the patient's current medical record, including medications, allergies and immunizations. There are no pertinent drug-drug interaction(s) at this time. Therapeutic Goals: suppress plasma HIV RNA and preserve immunologic function, as measured by CD4 count Labs: HIV RNA Detection, Qual (copies/mL) Date Value 05/17/2023 Detected (A) 11/01/2022 Detected (A) 06/07/2022 Detected (A) HIV 1 RNA Quant (copies/mL) Date Value 05/17/2023 <20 (H) 11/01/2022 <20 (H) 06/07/2022 23 (H) Absolute CD4 Date Value 11/01/2022 945 Cells/uL 06/07/2022 985 Cells/uL 10/25/2021 1,045 Cells/uL 05/16/2019 616 cells/uL CD4 (%) Date Value 05/16/2019 17 (L) % CD4 (%) Date Value 11/01/2022 44 06/07/2022 50 10/25/2021 38 Creatinine (mg/dl) Date Value 05/26/2019 0.83 GFR, Calculated (ml/min/1.73m2) Date Value 05/26/2019 90 Lab Results Component Value Date AST 35 05/20/2019 ALT 33 05/20/2019 Total Alkaline Phosphatase 62 05/20/2019 Bilirubin, Total 1.1 05/20/2019 Adherence: Patient has missed no doses since last follow-up, as determined via patient self-report. Side effects/toxicities: Patient has had no perceived side effects or toxicities, as determined via patient self-report. Health Maintenance: Health Maintenance Due Topic Date Due Hepatitis C Screen Never done RSV Immunization (60+ Years) (1 - 1-dose 60+ series) Never done Fall Risk Screening 02/22/2022 COVID-19 Vaccine (2022-24 season) 2023 Assessment: Jose Fisher is meeting goals of therapy and therapeutic benefit is achieved. Education Provided: Continue Biktarvy once daily. Asked patient to call with any questions or concerns. Follow-up planned: - Clinic appointment: to be scheduled with Dr. Parker - Laboratory monitoring: to be ordered by Dr. Parker - Next refill due by 11/13/23 Long Allan, PharmD Ambulatory Pharmacist [facility] Infectious Disease 10/17/2023 documented in this encounter Plan of Treatment Upcoming Encounters Date Type Department Care Team (Latest Contact Info) Description 05/13/2024 9:15 EDT Ancillary Procedure [facility] Cardiology - [address] [place] [address] History of aortic valve replacement; Elevated blood pressure reading 05/13/2024 11:00 EDT Office Visit [facility] Cardiology [address] [place] [address] Jose Stauffer MD [address] [place] [address] [address] [place] [address] documented as of this encounter Visit Diagnoses Not on filedocumented in this encounter Care Teams Control Panel Operator Relationship Specialty Start Date End Date Lorrie Conte MD PCP - General 10/19/17 documented as of this encounter
--- OUTSIDE RECORDS SUMMARY | 2024-05-12 17:04 | XMS_ITS | Encounter Summary ---
Author Organization [facility] Address [address] [place] [address] Care Team Providers Care Rehabilitation Therapy Aide Name Role Phone Lorrie Conte MD Primary Care Provider [phone] Encounter Details Date Type Department Care Team (Late st Contact Info) Description 06/15/2023 Specialty Pharmacy [facility] Amb[facility] - [facility] [place] [address] [place], [place] [id number] Lovely Huber, [facility] Social History Tobacco Use Types Packs/Day [...] Info) Description 05/13/2024 9:15 EDT Ancillary Procedure [facility] Cardiology [address] [place] [address] History of aortic valve replacement; Elevated blood pressure reading 05/13/2024 11:00 EDT Office Visit [facility] Cardiology [address] [place] [address] Jose Stauffer MD [address] [place] [address] [address] [place] [address] documented as of this encounter Visit Diagnoses Not on filedocumented in this encounter Care Teams Rehabilitation Therapy Aide Relationship Specialty Start Date End Date Lorrie Conte MD PCP - General 10/19/17 documented as of this encounter
--- OUTSIDE RECORDS SUMMARY | 2024-05-12 17:04 | XMS_ITS | Encounter Summary ---
Author Name [facility] [place] [facility] [place] Address [address] [place] [address] Care Team Providers Care Board Winder Name Role Phone BRADLEYDESIREE Primary Care Provider [...] PART A Jul 18, 2015 PART A [id number] BRENDON CHEUNGKALI PATIENT MEDICARE (WNR) MEDICARE (M) PART B Jul 18, 2015 PART B [id number] BRENDON CHEUNGKALI PATIENT [facility] MEDICAID MEDIC AID Jun 17, 2010 MEDICAI D [id number] BRENDON CHEUNG PATIENT [employer] MEDICARE SUPPLEMEN DILSHAD PLAN F May 01, 2017 PLAN F [id number] BRENDON CHEUNG PATIENT Selected Encounter This section includes the information on [place] at [place] for the Encounter. Date/Time Encounter Type Encounter Description Reason Provider Source Dec 05, 2023 09:00 AM HEARING AID FITTING/CHECKIN G AUDIOLOGY ICD-10-CM Z46.1 Encounter for fitting and adjustment of hearing aid EFE ROA Rodney Encounter Template Text not used by [place] Assessments - Encounter Diagnoses This section includes the primary and secondary diagnoses documented for the Encounter. Date/Time Primary/Secondary Diagnosis Diagnosis Name Provider Source Dec 05, 2023 09:20 AM PRIMARY Encounter for fitting and adjustment of hearing aid EFE ROA [facility] Dec 05, 2023 09:20 AM SECONDARY Sensorineural hearing loss, bilateral EFE ROA [facility] Plan of Treatment: Future Appointments (+ 6 months) and Future Tests (+/- 45 days) The Plan of Treatment section includes future care activities for the [place] from [facility] [place] [facility] This section includes future appointments and future orders which are active, pending or scheduled. Future Appointments This section includes appointments that were scheduled to occur 6 months from the date of the Encounter, up to a maximum of 20 appointments. The data comes from all [place] treatment facilities. Appointment Date/Time Appointment Type Appointme nt Facility Name Dec 27, 2023 10:00 AM AMBULATORY - SURGERY [facility] February 06, 2024 11:30 AM AMBULATORY - REHAB [facility] Social History: Smoking Status (Most current) and Tobacco Use (All prior to encounter date) This section includes the most current, and the historical, smoking and tobacco- related health factors from the [place] facility where the Encounter took place. Current Smoking Status This section includes the most current smoking, or tobacco-related health factor, from the [place] facility where the Encounter took place. Date/Time Current Smoking Status Comment Facil ity Apr 25, 2023 01:30 PM VA-TOBACCO QUIT 15 YRS OR MORE [facility] Tobacco Use History This section includes a history of the smoking, or tobacco-related health factors, that were collected on or before the date of the Encounter. The data comes from the [place] facility where the Encounter took place. Date/Time Smoking Status/Tobacco Use Comment F acility Apr 25, 2023 01:30 PM VA-TOBACCO QUIT 15 YRS OR MORE [facility] Aug 03, 2021 10:30 AM VA-TOBACCO NEVER USED [facility] May 10, 2020 03:00 PM VA-TOBACCO FORMER USER [facility] May 10, 2020 03:00 PM VA-TOBACCO QUIT 15 YRS OR MORE [place] [facility] Apr 16, 2019 12:07 PM VA-TOBACCO FORMER USER IVAN MAKIT [facility] Apr 16, 2019 12:07 PM VA-TOBACCO QUIT 15 YRS OR MORE IVAN MAKIT [facility] Jan 04, 2018 09:53 AM QUIT TOBACCO USE > 7 YEARS AGO [place] [facility] Dec 21, 2016 09:33 AM QUIT TOBACCO USE > 7 YEARS AGO [place] [facility] Oct 29, 2015 08:35 AM QUIT TOBACCO USE > 7 YEARS AGO [place] [facility] Jan 09, 2011 10:18 AM QUIT TOBACCO USE > 7 YEARS AGO 10 Years [facility] Encounter Notes: All associated encounter notes This section contains the clinical notes associated to the Encounter. Date/Time Encounter Note(s) Provider Source Dec 05, 2023 08:58 AM AUDIOLOGY NOTE: LOCAL TITLE: Audiology Note STANDARD TITLE: AUDIOLOGY NOTE DATE OF NOTE: DEC 05, 2023@08:58 ENTRY DATE: DEC 05, 2023@08:59:02 AUTHOR: EFE ROA EXP COSIGNER: URGENCY: STATUS: COMPLETED Audiology Note Has ADDENDA HEARING AID CHECK: Subjective: 73 year old with bilateral sensorineural hearing loss and HEARING AIDS: 08/08/23 SONOVA PHONAK VIRTO P90 HS R [id number] 08/08/26 01/06/24 405 [facility] 08/08/23 SONOVA PHONAK VIRTO P90 HS L [id number] 08/08/26 01/06/24 405 [place] [facility] 08/27/19 GN RESOUND LINX QUATTRO HS R [id number] 09/11/22 405 [place] [facility] 08/27/19 GN RESOUND LINX QUATTRO HS L [id number] 09/11/22 405 [place] [facility] 09/07/14 PHONAK PHONAK AUDEO V90-312 MAUREEN R [id number] 09/23/17 405 [place] [facility] 09/07/14 PHONAK PHONAK AUDEO V90-312 [facility] L [id number] 09/23/17 405 IVAN PRICE [facility] -Power juice scaleman, size 2, c-shell, hard acrylic was seen today. Dundee stated that he decided he would like to have the left aid remade due to loose fit (as discussed at the last appt). Objective/Assessment: Otoscopy revealed clear canals AU. Cleaned, replaced wax traps and hearing aids - working well. Connected aids to the software and read out settings- data logging revealed an average daily use of 12-13 hours. Subjectively was pleased with settings and declined further adjustments today. Took new left impression without incident. Sent in left aid for remake. Plan: 1) Sent in LEFT aid for remake. When it arrives, mail to . 2) Follow up per request. /es/ Orlando Pierce Staff People Greeter Signed: 12/05/2023 09:21 12/12/2023 ADDENDUM STATUS: COMPLETED aid returned from repair. Mfr documented pt settings were saved. Mailed to . /es/ Orlando Pierce Staff People Greeter Signed: 12/12/2023 09:13 EFE ROA [facility]
--- OUTSIDE RECORDS SUMMARY | 2024-05-12 17:04 | XMS_ITS | Encounter Summary ---
Author Organization [facility] Address [address] [place] [address] Care Team Providers Care Environmental Research Scientist Name Role Phone Lorrie Conte MD Primary Care Provider [phone] [phone] Reason for Visit * Reason Onset Date Comments Medications Refill 10/16/2023 Encounter Details Date Type Department Care Team (Late st Contact Info) Description 10/16/2023 Telephone [facility] [address], [place] [id number] Javid Parker, DO [address] [facility], [address] [place] [address] Medications Refill Social History Tobacco Use Types Packs/Day Years [...] Tablet by mouth daily. 30 Tablet 11 10/16/2023 11/05/2023 documented in this encounter Progress Notes * Long Allan RPH - 10/16/2023 1007 EST Refill request received for bictegravir-tenofovir alafenamide-emtricitabine (Biktarvy) from pharmacy. Last office visit on 05/14/23 (telemedicine) with Dr. Javid Parker. Next office visit not yet scheduled. Labs: GFR, Calculated (ml/min/1.73m2) Date Value 05/26/2019 90 Refill request processed and sent electronically to patient's preferred pharmacy. Long Allan, PharmD Ambulatory Pharmacist [facility] Infectious Disease 10/16/2023 Med Orders Placed This Visit and Additions to the Medication List Medications mmzdsgrhhwj-dchhtasajfsng-weqrnbtmz alafenamide (BIKTARVY) 50-200-25 mg per tablet Sig: Take 1 Tablet by mouth daily. Dispense: 30 Tablet Refill: 11 Specialty pharmacy documented in this encounter Miscellaneous Notes * Telephone Encounter - Wendy Lozano - 10/16/2023 0930 EST Medication Refill Request Medication: biktarvy Patient needs medication by: 10/25 Scheduled outreach date: 10/17 Pharmacy: [facility] [address] Next appt: Visit date not found documented in this encounter Plan of Treatment Upcoming Encounters Date Type Department Care Team (Latest Contact Info) Description 05/13/2024 9:15 EDT Ancillary Procedure [facility] Cardiology - [address] [place] [address] History of aortic valve replacement; Elevated blood pressure reading 05/13/2024 11:00 EDT Office Visit [facility] Cardiology - [facility] [address] [facility] [place] [address] Jose Stauffer MD [address] [place] [address] [address] [place] [address] documented as of this encounter Visit Diagnoses Diagnosis Asymptomatic HIV infection ([facility])- Primary Asymptomatic human immunodeficiency virus (HIV) infection status History of aortic valve replacement Heart valve replaced by other means Elevated blood pressure reading Elevated blood pressure reading without diagnosis of hypertension documented in this encounter Discontinued Medications Medication Sig Discontinue Reason Start Date End Da te bictegravir-emtricitabine -tenofovir alafenamide (BIKTARVY) 50-200-25 mg per tabletIndications:Asympto matic HIV infection ([facility]) Take 1 Tablet by mouth daily. Reorder 05/31/2023 10/16/2023 documented as of this encounter Care Teams Environmental Research Scientist Relationship Specialty Start Date End Date Lorrie Conte MD PCP - General 10/19/17 documented as of this encounter
--- OUTSIDE RECORDS SUMMARY | 2024-05-12 17:04 | XMS_ITS | Referral Summary ---
Author Organization [facility] Address [address] [place] [address] Care Team Providers Care Applied Research Director Name Role Phone Lorrie Conte MD Primary Care Provider Encounters Date Type Department Care Team Description 04/15/2024 Specialty Pharmacy [facility] [address], [place] [address] Long Allan [facility] Refill Coordination Outreach for HIV 03/14/2024 Specialty Pharmacy [facility] [address] [place], [place] [address] Long Allan [facility] Refill Coordination Outreach for HIV 02/15/2024 Specialty Pharmacy [facility] [address] [place], [place] [address] Long Allan [facility] Refill Coordination Outreach for HIV from Last 3 Months Allergies No known active allergies Medications Medication Sig Dispensed Refills Start Date End Date Status tamsulosin (FLOMAX) 0.4 mg capsule Take 1 Capsule by mouth daily. Take one capsule by mouth every day 30 minutes after the same mealtime each day for prostate/urinary symptoms. Active aspirin 81 mg EC tablet Take 1 Tab by mouth daily. 05/27/2019 Active melatonin 5 mg tablet Take 3 mg by mouth at bedtime. Active atorvastatin (LIPITOR) 20 mg tablet Take 1 Tablet by mouth daily. Active prednisoLONE (PRED FORTE) 1 % ophthalmic suspension INSTILL ONE DROP IN THE LEFT EYE FOUR TIMES A DAY 01/09/2023 Active brimonidine (ALPHAGAN) 0.2 % ophthalmic solution INSTILL 1 DROP INTO BOTH EYES TWO TIMES A DAY 12/26/2022 Active timolol (TIMOPTIC) 0.5 % ophthalmic solution Place 1 Drop into both eyes 2 times daily. 01/10/2023 Active amoxicillin (AMOXIL) 500 mg capsule TAKE FOUR CAPSULES BY MOUTH ONE HOUR PRIOR TO DENTAL APPOINTMENT 05/15/2022 Active bictegravir-emtric itabine-tenofovir alafenamide (BIKTARVY) 50-200-25 mg per tablet Take 1 Tablet by mouth daily for 360 days. 30 Tablet 11 11/05/2023 10/30/2024 Active Active Problems Problem Noted Date Diagnosed Date HIV (human immunodeficiency virus infection) ( C-CMS) 08/29/2023 Aortic valve regurgitation 05/14/2019 Immunizations Name Administration Dates Next Due Covid-19 mRNA Pediatric Vacc ine (MODERNA PEDIATRIC COVID-19) PF 0.5 mL IM (6-11 yrs) 08/22/2022,02/23/2022 Covid-19 mRNA Vaccine (MODER NA COVID-19) PF 0.5 ml IM (12 yrs+) 08/15/2021,11/26/2020,10/29/2020 Historical Hepatitis A Vacci ne, Unspecified 12/27/2017 Influenza (whole) 07/17/2006,08/08/2005 Influenza Vaccine Quad (AFLU CORINNE) PF 0.5 ml IM (3 yrs+) 07/11/2022,07/11/2021,06/16/2019,09/12,08/06/2017 Influenza Vaccine Quad High Dose (FLUZONE HIGH DOSE) PF 0.7 ml IM (65 yrs+) 07/05/2023 Pneumococcal Conjugate Vacci ne 13-Valent (PCV13) (PREVNAR-13) 0.5 mL IM (6 wks+) 08/26/2019 Pneumococcal Polysaccharide (PPSV23) Vaccine (PNEUMOVAX-23) =>2YO SQ/IM 08/06/2017 Td (Adult) 5 Lf Vaccine (TEN IVAC) Preservative Free =>7yo IM 03/03/2013,07/18/2003 Tdap Vaccine =>7YO IM 12/15/2022,08/03/2021,02/15 Typhoid Vaccine Oral 12/27/2017 Zostavax (Zoster Vaccine, Live) SQ 06/30/2014, Social History Tobacco Use Types Packs/Day Years [...] on file Sexual Orientation Not on file Last Filed Vital Signs Vital Sign Reading Time Taken Comments Blood Pressure 144/62 05/07/2023 0826 EDT Pulse 65 05/07/2023 0826 EDT patient reported Temperature 36.5 ??C (97.7 ??F) 07/07/2019 1147 EDT Respiratory Rate 14 07/07/2019 1147 EDT Oxygen Saturation 100% 05/07/2023 0826 EDT Inhaled Oxygen Concentration - - Weight 92.9 kg (204 lb 12.8 oz) 05/07/2023 0826 EDT Height 162.6 cm (5' 4) 02/22/2021 1018 EDT Body Mass Index 35.15 02/22/2021 1018 EDT Functional Status Functional Status Response Date of Assess [facility] Are you deaf or do you have [...] concentrating, remembering, or making decisions? No 06/18/2019 Plan of Treatment Upcoming Encounters Date Type Department Care Team (Latest Contact Info) Description 05/13/2024 9:15 EDT Ancillary Procedure [facility] Cardiology - [place] [address] [place], [place] [id number] History of aortic valve replacement; Elevated blood pressure reading 05/13/2024 11:00 EDT Office Visit [facility] Cardiology - [facility] [place] [address] Jose Stauffer MD [address] [place] [address] Advance Directives For more information, please contact: [phone] * Full Code (Latest Code Status on File) Date Activated Date Inactivated Comments 05/22/2019 13:32 05/26/2019 16:24 Question Answer Comments Reason for decision includes: Full code consistent with overall plan of care Who participated in the discussion? Patient * Full Code Date Activated Date Inactivated Comments 05/14/2019 12:14 05/22/2019 13:31 Question Answer Comments Reason for decision includes: Full code consistent with overall plan of care Who participated in the discussion? Not Discusse d Care Teams Applied Research Director Relationship Specialty Start Date End Date Lorrie Conte MD PCP - General 10/19/17
--- OUTSIDE RECORDS SUMMARY | 2024-05-12 17:04 | XMS_ITS | Encounter Summary ---
Author Organization [facility] Address [address] [place] [address] Care Team Providers Care Button Breaker Operator Name Role Phone Lorrie Conte MD Primary Care Provider [phone] Encounter Details Date Type Department Care Team (Latest Contact Info) Description 01/15/2024 Specialty Pharmacy [facility] [address] [place], [place] [address] Long Allan [facility] Refill Coordination Outreach for HIV [...] Info) Description 05/13/2024 9:15 EDT Ancillary Procedure [facility] Cardiology - [address] [place] [address] History of aortic valve replacement; Elevated blood pressure reading 05/13/2024 11:00 EDT Office Visit [facility] Cardiology [address] [place] [address] Jose Stauffer MD [address] [facility] [address] [place] [address] documented as of this encounter Visit Diagnoses Not on filedocumented in this encounter Care Teams Button Breaker Operator Relationship Specialty Start Date End Date Lorrie Conte MD PCP - General 10/19/17 documented as of this encounter
--- OUTSIDE RECORDS SUMMARY | 2024-05-12 17:04 | XMS_ITS | Encounter Summary ---
Author Organization [facility] Address [address] [place] [address] Care Team Providers Care Adjunct Psychology Instructor Name Role Phone Lorrie Conte MD Primary Care Provider [phone] Encounter Details Date Type Department Care Team (Late st Contact Info) Description 05/18/2023 Lab Requisition [facility] Pathology & Laboratory Medicine - [facility] [address] [place] [address] Outr Resulting Lab, Provider Social History Tobacco [...] Info) Description 05/13/2024 9:15 EDT Ancillary Procedure [facility] Cardiology [address] [place] [address] History of aortic valve replacement; Elevated blood pressure reading 05/13/2024 11:00 EDT Office Visit [facility] Cardiology - [address] [place] [address] Jose Stauffer MD [address] [place] [address] documented as of this encounter Procedures Procedure Name Priority Date/Time Associated Diagnosis Comments HIV 1 RNA QUANTITATION Routine 05/17/2023 16:15 EDT documented in this encounter Results * (ABNORMAL) HIV 1 RNA QUANTITATION (05/17/2023 16:15 EDT) [facility] HIV RNA Detection, Qual Detected( A) Undetected copies/mL 05/21/2023 11:40 EDT [facility] HIV 1 RNA Quant <20(H) Undetected copies/mL 05/21/2023 11:40 EDT [facility] Comment:HIV-1 RNA level is < 20 copies/mL. This assay cannot accurately quantify HIV-1RNA below this level. Blood VENOUS BLOOD / Unknown 05/17/2023 16:15 EDT 05/18/2023 18:04 EDT Narrative [facility] - 05/21/2023 11:40 EDT The quantification range of this assay is 20 IU/mL to 10,000,000 IU/mL. ??Testing was performed using the Avis HIV test ([employer] with the avis 6800 System. Provider Outr Resulting Lab CHEMISTRY & BLOOD GAS ORDERABLES [facility] [address] [place] [id number] documented in this encounter Visit Diagnoses Not on filedocumented in this encounter Care Teams Adjunct Psychology Instructor Relationship Specialty Start Date End Date Lorrie Conte MD PCP - General 10/19/17 documented as of this encounter
--- OUTSIDE RECORDS SUMMARY | 2024-05-12 17:04 | XMS_ITS | Encounter Summary ---
Author Organization [facility] Address [address] [place] [address] Care Team Providers Care Manager Facility Name Role Phone Lorrie Conte MD Primary Care Provider [phone] Encounter Details Date Type Department Care Team (Late st Contact Info) Description 10/24/2023 Lab Requisition [facility] Pathology & Laboratory Medicine - [facility] [address] [place] [address] Outr Resulting Lab, Provider Social History Tobacco [...] Info) Description 05/13/2024 9:15 EDT Ancillary Procedure [facility] Cardiology [address] [place] [address] History of aortic valve replacement; Elevated blood pressure reading 05/13/2024 11:00 EDT Office Visit [facility] Cardiology [address] [place] [address] Jose Stauffer MD [address] [place] [address] documented as of this encounter Procedures Procedure Name Priority Date/Time Associated Diagnosis Comments T CELL SUBSETS Routine 10/24/2023 8:59 EST HIV 1 RNA QUANTITATION Routine 10/24/2023 8:59 EST documented in this encounter Results * (ABNORMAL) HIV 1 RNA QUANTITATION (10/24/2023 8:59 EST) HIV RNA Detection, Qual Detected( A) Undetected copies/mL 10/25/2023 11:45 EST [facility] HIV 1 RNA Quant 47(H) Undetected copies/mL 10/25/2023 11:45 EST [facility] Blood VENOUS BLOOD / Unknown 10/24/2023 8:59 EST 10/24/2023 17:03 EST Narrative [facility] - 10/25/2023 11:45 EST The quantification range of this assay is 20 IU/mL to 10,000,000 IU/mL. ??Testing was performed using the Avis HIV test ([employer] with the avis Linux Voice0 System. Provider Outr Resulting Lab CHEMISTRY & BLOOD GAS ORDERABLES Performing Organization Address City/[facility] Co de Phone Number [facility] [address] [place] [address] * T CELL SUBSETS (10/24/2023 8:59 EST) % CD3 69 56 - 84 % 10/25/2023 16:55 EST [facility] % CD4 41 31 - 64 % 10/25/2023 16:55 EST [facility] % CD8 28 9 - 39 % 10/25/2023 16:55 [facility] Absolute CD3 1,432 840 - 2,669 Cells/uL 10/25/2023 16:55 [facility] Absolute CD4 855 488 - 1,734 Cells/uL 10/25/2023 16:55 [facility] Absolute CD8 572 154 - 1,097 Cells/uL 10/25/2023 16:55 EST [facility] 4/8 Ratio 1.49 >=0.90 10/25/2023 16:55 [facility] Blood VENOUS BLOOD / Unknown 10/24/2023 8:59 EST 10/24/2023 17:00 EST Provider Outr Resulting Lab IMMUNOLOGY A ND SEROLOGY ORDERABLES Performing Organization Address [facility] de Phone Number [facility] [address] [place] [address] documented in this encounter Visit Diagnoses Not on filedocumented in this encounter Care Teams Manager Facility Relationship Specialty Start Date End Date Lorrie Conte MD PCP - General 10/19/17 documented as of this encounter
--- OUTSIDE RECORDS SUMMARY | 2024-05-12 17:04 | XMS_ITS | Encounter Summary ---
Author Name [facility] [place] Organization [facility] [place] Address [address] [place] [address] Care Team Providers Care Skip Operator Name Role Phone BRADLEYDESIREE Primary Care Provider [...] PART A Jul 18, 2015 PART A [id number] [facility] BRENDON CHEUNGKALI PATIENT MEDICARE (WNR) MEDICARE (M) PART B Jul 18, 2015 PART B [id number] BRENDON CHEUNGKALI PATIENT [facility] MEDICAID MEDIC AID Jun 17, 2010 MEDICAI D [id number] BRENDON CHEUNG PATIENT [employer] [place] MEDICARE SUPPLEMEN DILSHAD PLAN F May 01, 2017 PLAN F [id number] BRENDON CHEUNG PATIENT Selected Encounter This section includes the information on record at [place] for the Encounter. Date/Time Encounter Type Encounter Description Reason Provider Source February 06, 2024 11:30 AM HEARING AID FITTING/CHECKIN G AUDIOLOGY ICD-10-CM Z46.1 Encounter for fitting and adjustment of hearing aid AKIN LUIS [facility] Encounter Template Text not used by [place] Assessments - Encounter Diagnoses This section includes the primary and secondary diagnoses documented for the Encounter. Date/Time Primary/Secondary Diagnosis Diagnosis Name Provider Source February 06, 2024 12:05 PM PRIMARY Encounter for fitting and adjustment of hearing aid MERLENE LUISCATIE Carter [facility] February 06, 2024 12:05 PM SECONDARY Sensorineural hearing loss, bilateral JANELLEAKIN Carter [facility] Encounter Notes: All associated encounter notes This section contains the clinical notes associated to the Encounter. Date/Time Encounter Note(s) Provider Source February 06, 2024 11:37 AM AUDIOLOGY NOTE: LOCAL TITLE: Audiology Note STANDARD TITLE: AUDIOLOGY NOTE DATE OF NOTE: FEBRUARY 06, 2024@11:37 ENTRY DATE: FEBRUARY 06, 2024@11:38:04 AUTHOR: AKIN LUIS COSIGNER: URGENCY: STATUS: COMPLETED HEARING AID SERVICE: The patient has been diagnosed with a sensorineural hearing loss bilaterally and is being seen today for a hearing aid service appointment. HEARING AIDS: 08/08/23 SONOVA PHONAK VIRTO P90 HS R [id number] 08/08/26 01/06/24 [address] [place] [facility] 08/08/23 SONOVA PHONAK VIRTO P90 HS L [id number] 08/08/26 01/06/24 [address] [facility] 08/27/19 GN RESOUND LINX QUATTRO HS R [id number] 09/11/22 [address] [facility] 08/27/19 GN RESOUND LINX QUATTRO HS L [id number] 09/11/22 [facility] 09/07/14 PHONAK PHONAK AUDEO V90-312 MAUREEN R [id number] 09/23/17 [facility] 09/07/14 PHONAK PHONAK AUDEO V90-312 MAUREEN L [id number] 09/23/17 405 [facility] -Power mixer whipped topping, size 2, c-shell, hard acrylic Otoscopy was unremarkable bilaterally. L EDGAR returned from remake unsynched. Patient also could not connect to mariaelena without it closing out. Reloaded previous EDGAR settings from software. Uninstalled/reinstalled mariaelena. Patient was able to connec to iPhone and mariaelena successfully in office. DIAGNOSIS (primary) Z46.1 Adjustment of Hearing Aid PROCEDURES COMPLETED: Otoscopy Hearing Aid Fitting/Checking V5011 PLAN: -f/u per request --STATUS-- --DUE DATE-- --LAST DONE-- Suicide Screen RESOLVED 04/25/2024 04/25/2023 Frequency: Due every 1 year for all ages. Resolution: Last done - 04/25/2023@13:30 Mental Health Test: Mckenzie Suicide Severity Rating Scale (C-SSRS) 04/25/2023@13:30 scale: Ques1 - raw score: 2, transformed score: /es/ AKIN LUIS Overcoiler Signed: 02/06/2024 12:05 AKIN LUIS [facility]
--- OUTSIDE RECORDS SUMMARY | 2024-05-12 17:04 | XMS_ITS | Encounter Summary ---
Author Organization [facility] Address [address] [place] [address] Care Team Providers Care Drawing In Machine Tender Helper Name Role Phone Lorrie Conte MD Primary Care Provider [phone]- [phone] Encounter Details Date Type Department Care Team (Latest Contact Info) Description 11/15/2023 Specialty Pharmacy [facility] [address] [place], [place] [address] Long [place] [facility] Refill Coordination Outreach for HIV [...] Info) Description 05/13/2024 9:15 EDT Ancillary Procedure [facility] Cardiology - [address] [place] [address] History of aortic valve replacement; Elevated blood pressure reading 05/13/2024 11:00 EDT Office Visit [facility] Cardiology [address] [place] [address] Jose Stauffer MD [address] [facility] [address] [place] [address] documented as of this encounter Visit Diagnoses Not on filedocumented in this encounter Care Teams Drawing In Machine Tender Helper Relationship Specialty Start Date End Date Lorrie Conte MD PCP - General 10/19/17 documented as of this encounter
--- OUTSIDE RECORDS SUMMARY | 2024-05-12 17:04 | XMS_ITS | Encounter Summary ---
Author Organization [facility] Address [address] [place] [address] Care Team Providers Care Health Analytics Consultant Name Role Phone Lorrie Conte MD Primary Care Provider [phone] Encounter Details Date Type Department Care Team (Latest Contact Info) Description 09/18/2023 Specialty Pharmacy [facility] Specialty Pharmacy 1 [place], [place] [phone] Long Allan [facility] Refill Coordination Outreach for HIV Social History [...] Info) Description 05/13/2024 9:[address] [facility] Cardiology - [address] [place] [address] History of aortic valve replacement; Elevated blood pressure reading 05/13/2024 11:[address] [facility] Cardiology [address] [place] [address] Jose Stauffer MD [address] [facility] [address] [place] [address] documented as of this encounter Visit Diagnoses Not on filedocumented in this encounter Care Teams Health Analytics Consultant Relationship Specialty Start Date End Date Lorrie Conte MD PCP - General 10/19/17 documented as of this encounter
--- OUTSIDE RECORDS SUMMARY | 2024-05-12 17:04 | XMS_ITS | Encounter Summary ---
Author Organization [facility] Address [address] [place] [address] Care Team Providers Care Farm Consultant Name Role Phone Lorrie Conte MD Primary Care Provider [phone]- [phone] Encounter Details Date Type Department Care Team (Latest Contact Info) Description 08/17/2023 Specialty Pharmacy [facility] Specialty [facility] [address] [place], [place] [phone] Long Allan [facility] Refill Coordination Outreach (1 time occurrence) for HIV Social [...] Info) Description 05/13/2024 9:15 EDT Ancillary Procedure [facility] Cardiology [address] [place] [address] History of aortic valve replacement; Elevated blood pressure reading 05/13/2024 11:00 EDT Office Visit [facility] Cardiology [address] [place] [address] Jose Stauffer MD [address] [place] [address] [address] [place] [address] documented as of this encounter Visit Diagnoses Not on filedocumented in this encounter Care Teams Farm Consultant Relationship Specialty Start Date End Date Lorrie Conte MD PCP - General 10/19/17 documented as of this encounter
--- OUTSIDE RECORDS SUMMARY | 2024-05-12 17:04 | XMS_ITS | Encounter Summary ---
Author Organization [facility] Address [address] [place] [address] Care Team Providers Care Cooperative Manager Name Role Phone Lorrie Conte MD Primary Care Provider [phone]- [phone] Encounter Details Date Type Department Care Team (Late st Contact Info) Description 07/17/2023 Specialty Pharmacy [facility] Ambulatory [facility] - [facility] [address] [place], [place] [address] Long Allan, [facility] Social History Tobacco Use Types Packs/Day [...] Info) Description 05/13/2024 9:15 EDT Ancillary Procedure [facility] Cardiology - [address] [place] [address] History of aortic valve replacement; Elevated blood pressure reading 05/13/2024 11:00 EDT Office Visit [facility] Cardiology [address] [place] [address] Jose Stauffer MD [address] [facility] [address] [place] [address] documented as of this encounter Visit Diagnoses Not on filedocumented in this encounter Care Teams Cooperative Manager Relationship Specialty Start Date End Date Lorrie Conte MD PCP - General 10/19/17 documented as of this encounter
--- OUTSIDE RECORDS SUMMARY | 2024-05-12 17:04 | XMS_ITS | Clinical Summary ---
Author Organization [facility] Address [address] [place] [address] Care Team Providers Care Produce Field Merchandiser Name Role Phone Lorrie Conte MD Primary Care Provider Allergies No known active allergies Medications Medication [...] Date HIV (human immunodeficiency virus infection) ( [facility]) 08/29/2023 Aortic valve regurgitation 05/14/2019 Encounters Date Type Department Care Team Description 04/15/2024 Specialty Pharmacy [facility] Specialty Pharmacy [address] [place] [place] [address] Long Allan [facility] Refill Coordination Outreach for HIV 03/14/2024 Specialty Pharmacy [facility] Specialty Pharmacy [address] [facility] [place], [place] [address] Long Allan [facility] Refill Coordination Outreach for HIV 02/15/2024 Specialty Pharmacy [facility] Specialty Pharmacy 1 [facility] [place], [place] [phone] Long Allan [facility] Refill Coordination Outreach for HIV from Last 3 Months Immunizations Name Administration Dates Next Due Covid-19 [...] 12/27/2017 Zostavax (Zoster Vaccine, Live) SQ 06/30/2014, Surgical History Surgery Date Site/Laterality Comments ROTATOR CUFF REPAIR KNEE ARTHROSCOPY Bilateral UMBILICAL HERNIA REPAIR TONSILLECTOMY CATARACT REMOVAL Medical History Medical History Date Comments HIV (human immunodeficiency virus infection) (HC C-CMS) Thrombocytopenia (HCC-CMS) BPH (benign prostatic hyperplasia) Osteoarthritis Uveitis Aortic regurgitation Family History Medical History Relation Comments Cancer Father Liver cancer Diabetes Father Diabetes Mother Relation Status Comments Father Mother Social History Tobacco Use Types Packs/Day Years [...] on file Sexual Orientation Not on file Obstetrics History Last Filed Vital Signs Vital Sign Reading [...] Body Mass Index 35.15 02/22/2021 1018 EDT Plan of Treatment Upcoming Encounters Date Type Department Care Team (Latest Contact Info) Description 05/13/2024 9:15 EDT Ancillary Procedure [facility] Cardiology - [facility] [place] [address] History of aortic valve replacement; Elevated blood pressure reading 05/13/2024 11:00 EDT Office Visit [facility] Cardiology - [facility] [place] [address] Jose Stauffer MD [address] [facility] [address] [place] [phone] Health Maintenance Due Date Last Done Comments Hepatitis C Screen 1950 RSV Immunization ( o r 60+ Years) (1 - 1-dose 60+ series) 2010 Fall Risk Screening 02/22/2022 02/22/2021 COVID-19 Vaccine (2022-2 4 season) 2023 08/22/2022, 02/23/2022, 08/15/2021, Additional history exists Advance Directives For more information, please contact: [phone] * Full Code (Latest Code Status on [...] the discussion? Not Discusse d Care Teams Produce Field Merchandiser Relationship Specialty Start Date End Date Lorrie Conte MD PCP - General 10/19/17
--- OUTSIDE RECORDS SUMMARY | 2024-05-12 17:04 | XMS_ITS | Encounter Summary ---
Author Name [facility] [place] [facility] [facility] [place] Address [address] [place] [address] Care Team Providers Care Stone Rubber Name Role Phone BRADLEYDESIREE Primary Care Provider [...] PART B Jul 18, 2015 PART B [id number] BRENDON CHEUNGKALI PATIENT MEDICARE (WNR) MEDICARE (M) PART A Jul 18, 2015 PART A [id number] BRENDON CHEUNGKALI PATIENT [facility] MEDICAID MEDIC AID Jun 17, 2010 MEDICAI D [id number] BRENDON CHEUNG PATIENT [employer] [place]IC[place] SUPPLEMEN DILSHAD PLAN F May 01, 2017 PLAN F [id number] BRENDON CHEUNG PATIENT Selected Encounter This section includes the information on record at [place] for the Encounter. Date/Time Encounter Type Encounter Description Reason Provider Source Nov 13, 2023 10:00 AM HEARING AID FITTING/CHECKIN G AUDIOLOGY ICD-10-CM Z46.1 Encounter for fitting and adjustment of hearing aid EFE ROA [facility] Encounter Template Text not used by [place] Assessments - Encounter Diagnoses This section includes the primary and secondary diagnoses documented for the Encounter. Date/Time Primary/Secondary Diagnosis Diagnosis Name Provider Source Nov 13, 2023 10:28 AM PRIMARY Encounter for fitting and adjustment of hearing aid EFE ROA [facility] Nov 13, 2023 10:28 AM SECONDARY Sensorineural hearing loss, bilateral EFE ROA [facility] Plan of Treatment: Future Appointments (+ 6 months) and Future Tests (+/- 45 days) The Plan of Treatment section includes future care activities for the patient from [facility] This section includes future appointments and future orders which are active, pending or scheduled. Future Appointments This section includes appointments that were scheduled to occur 6 months from the date of the Encounter, up to a maximum of 20 appointments. The data comes from all [place] treatment facilities. Appointment Date/Time Appointment Type Appointme nt Facility Name Dec 05, 2023 09:00 AM AMBULATORY - REHAB MEDICIN E [facility] Dec 27, 2023 10:00 AM AMBULATORY - SURGERY [facility] February 06, 2024 11:30 AM AMBULATORY - REHAB MEDICIN E [facility] Social History: Smoking Status (Most current) and Tobacco Use (All prior to encounter date) This section includes the most current, and the historical, smoking and tobacco- related health factors from the [place] facility where the Encounter took place. Current Smoking Status This section includes the most current smoking, or tobacco-related health factor, from the [place] facility where the Encounter took place. Date/Time Current Smoking Status Comment Facil ity Apr 25, 2023 01:30 PM VA-TOBACCO QUIT 15 YRS OR MORE [facility] Tobacco Use History This section includes a history of the smoking, or tobacco-related health factors, that were collected on or before the date of the Encounter. The data comes from the [place] facility where the Encounter took place. Date/Time Smoking Status/Tobacco Use Comment F acility Apr 25, 2023 01:30 PM VA-TOBACCO QUIT 15 YRS OR MORE [facility] Aug 03, 2021 10:30 AM VA-TOBACCO NEVER USED [facility] May 10, 2020 03:00 PM VA-TOBACCO FORMER USER [facility] May 10, 2020 03:00 PM VA-TOBACCO QUIT 15 YRS OR MORE [facility] Apr 16, 2019 12:07 PM VA-TOBACCO FORMER USER [facility] Apr 16, 2019 12:07 PM VA-TOBACCO QUIT 15 YRS OR MORE [facility] Jan 04, 2018 09:53 AM QUIT TOBACCO USE > 7 YEARS AGO [facility] Dec 21, 2016 09:33 AM QUIT TOBACCO USE > 7 YEARS AGO [facility] Oct 29, 2015 08:35 AM QUIT TOBACCO USE > 7 YEARS AGO [facility] Jan 09, 2011 10:18 AM QUIT TOBACCO USE > 7 YEARS AGO 10 Years [facility] Encounter Notes: All associated encounter notes This section contains the clinical notes associated to the Encounter. Date/Time Encounter Note(s) Provider Source Nov 13, 2023 10:10 AM AUDIOLOGY NOTE: LOCAL TITLE: Audiology Note STANDARD TITLE: AUDIOLOGY NOTE DATE OF NOTE: NOV 13, 2023@10:10 ENTRY DATE: NOV 13, 2023@10:10:08 AUTHOR: EFE ROA EXP COSIGNER: URGENCY: STATUS: COMPLETED HEARING AID CHECK: Subjective: 73 year old with bilateral, asymmetric sensorineural hearing loss and HEARING AIDS: 08/08/23 SONOVA PHONAK VIRTO P90 HS R [id number] 08/08/26 01/06/24 405 [facility] 08/08/23 SONOVA PHONAK VIRTO P90 HS L [id number] 08/08/26 01/06/24 405 [facility] 08/27/19 GN RESOUND LINX QUATTRO HS R [id number] 09/11/22 405 [facility] 08/27/19 GN RESOUND LINX QUATTRO HS L [id number] 09/11/22 405 [facility] 09/07/14 PHONAK PHONAK AUDEO V90-312 MAUREEN R [id number] 09/23/17 [facility] [place] [facility] 09/07/14 LEANDRO BALTAZAR V90-312 [facility] L [id number] 09/23/17 405 [facility] -Power supervisor line department, 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 LEFT aid was sent in for repair to have the vent made wider due to occlusion at the last appt. Today, reports that the occlusion from the left aid is now gone but the fit is loose. He also stated that the left aid is scratchy, has a reverberation and the hearing aids are no longer paired to his mariaelena. Objective/Assessment: Otoscopy revealed clear canals AU. Cleaned and checked hearing aids - working well. Physical fit of remade left aid was fair (slightly loose). Made programming adjustments - -decreased overall gain in the left aid, especially in the high frequencies Subjectively was pleased with settings and reported the reverberation was no longer there. Repaired hearing aids to the [employer] Mariaelena. Counseled regarding realistic expectations for hearing aid use, communication strategies to facilitate good communication and reviewed the mariaelena. Also reviewed trial period (ends: 01/06/24). Discussed sending in the left aid for a remake-he declined at this time. Plan: 1) Follow up per request. /linda/ Orlando Pierce Staff Sand Temperer Signed: 11/13/2023 10:28 EFE ROA [facility]
--- OUTSIDE RECORDS SUMMARY | 2024-05-12 17:04 | XMS_ITS | Encounter Summary ---
Author Organization [facility] Address [address] [place] [address] Care Team Providers Care Mold Sprayer Name Role Phone Lorrie Conte MD Primary Care Provider [phone] Encounter Details Date Type Department Care Team (Latest Contact Info) Description 02/15/2024 Specialty Pharmacy [facility] Specialty Pharmacy [address] [place], [place] [address] Long Allan [facility] Refill Coordination Outreach for HIV Social [...] Info) Description 05/13/2024 9:15 EDT Ancillary Procedure [facility] Cardiology - [address] [place] [address] History of aortic valve replacement; Elevated blood pressure reading 05/13/2024 11:00 EDT Office Visit [facility] Cardiology [address] [place] [address] Jose Stauffer MD [address] [facility] [address] [place] [address] documented as of this encounter Visit Diagnoses Not on filedocumented in this encounter Care Teams Mold Sprayer Relationship Specialty Start Date End Date Lorrie Conte MD PCP - General 10/19/17 documented as of this encounter
--- OUTSIDE RECORDS SUMMARY | 2024-05-12 17:05 | XMS_ITS | Encounter Summary ---
Author Organization [facility] Address [address] [place] [address] Care Team Providers Care Environmental Inspector Name Role Phone Lorire Conte MD Primary Care Provider [phone]- [phone] Reason for Visit * Reason Comments Follow-up Encounter Details Date Type Department Care Team (Late st Contact Info) Description 11/06/2022 11:00 EST Telemedicine [facility] Infectious Disease [address] [id number] Javid Parker, DO [address] [facility], [address] [place] [address] Asymptomatic HIV infection (HCC-CMS) (Primary [...] as of this encounter Progress Notes * Javid Parker, DO - 11/06/2022 1100 EST I spent a total of 30 minutes on the date of this encounter meeting with the patient and reviewing documentation/coordinating care as described in the above note. No procedures were performed at the time of the visit. Division of Infectious Disease Follow up/Progress Note 11/05/22 9:43 TELEMEDICINE VIDEO VISIT Today's visit was provided through telemedicine video conferencing: The location of the patient : Home The location of the provider: Office [facility] The following staff and their role did participate in today's encounter visit: Javid Parker, DO The concept of ???Telemedicine?? has been described [...] in patient???s medical or mental health care. HPI??Mr.??Fisher??is a??72??y.o.??male??with history significant for newly diagnosed HIV??who presents with??follow up. ?HIV diagnosed in March 2019 by PCM with a positive 4th gen Ab/Ag test done as part of a viral syndrome work up??.?Initial??CD4 done in Apr was 529 at 16%, HIV VL 94,797. ??Pt started on Biktarvy on 26 April??2019??with perfect adherence. ?Genotype showed no evidenceof resistance.?On next set of labs 16 May??2019??(done due to AVR surgery ), VL down to 386and CD4??616??at 17%.? Most recent labs from??May 2022??show VL??23, current VL Oct 2022 pending??and CD4 Oct 2022??945 ?? We suspect he acquired HIV infection??in??[place] (on/about 13 February??2019) from a??female whom he didn't know very well??and I suspect could have been a sex worker. ??Pt denies MSM. He [facility])??and done for just primary care-routine screening. ?? Biktarvy??started??on 26 April??2019,however pt noted SOB develop several days prior to starting ART. ??He was seen by PCM who got an echo that showed severe??AV regurg and was referred to CT surgery at [facility] where on May??2018, pt had AVR and CABG X2. ?Perfect adherence with Biktarvy??and has a great supply thanks to the pharmacy mail system.?He has two daughters locally that??visit him frequently.?Patient had a partial knee replacement??in Aug 2020 and saw cardiology ??In follow up in February 2021. ??Things are going so well after his aortic valve replacement that he does not need to see cardiology until summer 2022. ??He had a great trip with an old friend to [place] for about 7 weeks the summer 2021 which he really enjoyed and s uspects he will schedule another trip summer 2023. ?? 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 ??He works daily in the [employer] down in [place] during the spring and summertime and is looking forward to this activity. He is also busy with maple sugaring which she enjoys as well. ?? Review of Systems: 10-point review of systems is negative except as noted in the HPI. ?? Past Medical History: BPH Acute retroviral syndrome summer 2018 ??esophageal candidiasis 2018 Tachycardia work up with holter monitor in past Thrombocytopenia: Baseline platelets range from 80-90. 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 Past Surgical History:?? Knee injections for DJD. Aortic valve replacement [facility] May 2019 CABG x 2 2018?? Knee replacement 2019 ?? MEDICATIONS Biktarvy started 26 April 2019 ?? Allergies not on file ?? 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 Sexual:??Patient denies MSM. ??His last sexual contact prior to the one in [facility] in 2018, was in [place] around 2011. ??Patient sounds like he spent less than a week with this woman that he met in [facility]. ??He does not know anything about her history. Exercise:??Busy with yard work. Travel:??From [place]. 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 ??Only other recent travel was a trip to [facility] in January 2019, then to [place] in February 2019. ??Both were vacations ? Social History ? Socioeconomic History ??? Marital status: Single ? Spouse name: Not on file ??? Number of children: Not on file ??? Years of education: Not on file ??? Highest education level: Not on file Occupational History ??? Not on file Social Needs ??? Financial resource strain: Not on file ??? Food insecurity: ? Worry: Not on file ? Inability: Not on file ??? Transportation needs: ? Medical: Not on file ? Non-medical: Not on file Tobacco Use ??? Smoking status: Not on file Substance and Sexual Activity ??? Alcohol use: Not on file ??? Drug use: Not on file ??? Sexual activity: Not on file Lifestyle ??? Physical activity: ? Days per week: Not on file ? Minutes per session: Not on file ??? Stress: Not on file Relationships ??? Social connections: ? Talks on phone: Not on file ? Gets together: Not on file ? Attends presybeterian service: Not on file ? Active member of club or organization: Not on file ? Attends meetings of clubs or organizations: Not on file ? Relationship status: Not on file ??? Intimate partner violence: ? Fear of current or ex partner: Not on file ? Emotionally abused: Not on file ? Physically abused: Not on file ? Forced sexual activity: Not on file Other Topics Concern ??? Not on file Social History Narrative ??? Not on file ? Family history: Pertinent for??mother with Alzheimer's, father with liver cancer. ??He has 3 healthy daughters. The Family History was reviewed and is non-contributory for a past history of infection or immunocompromised state. ?? Physical Exam AAOx3, very pleasant, Wt 200 pounds, blood pressure 128/70 ?? 25 April??2019??HIV genotype no resistance genes. ?? Assessment and Plan: ?? #) HIV - Diagnosed in??March 2019, baseline CD4 count 529 at 16% and initial??HIV viral load 94,000. ??Genotype shows no resistance genes. - Prior regimens include??none - Currently on??Biktarvy started 26 April 2019.? - Oct 2022??CD4 945 - HIV??viral load?? May 2022.?? Current VL Oct 2022 Pending - OI prophylaxis:??NA - Compliance:??Perfect - Sexual activity:??None since [facility] January 2019 - G/C, RPR: April 2019 RPR nonreactive. ??April 2019 urine gonorrhea chlamydia negative - HBV/HCV: Hepatitis A, HCV antibody negative, hepatitis B surface antigen negative, hepatitis B core antibody negative, hepatitis B surface antibody negative, - Dental exam??normal dentition??2019 -??HLA??B 5701 negative -QuantiFERON gold -March 2019. ??Toxoplasma IgG negative, toxoplasma IgM negative,??CMV IgG positive, CMV IgM negative.? -??Follow up with me in??6 months. ??Zoom visit seem to work very well ?? #) Health maintenance - Cholesterol:??Per PCM - Diabetes:??Screening per PCM - Colonoscopy:??Screening colonoscopy 2018 tubular adenoma. - Immunizations:??flu shot fall 2021, Tdap 2012, shingles 2013, pneumovax 2016.?COVID [id number], omicron booster??up-to-date. ??We think his Prevnar 13 and hepatitis B was taken care of by his primary care provider. ?? #)??Orthopneic dyspnea,??etiology never clear, patient given CPAP machine but it does not sound like he needs to use it anymore. ?#)??Status post aortic valve replacement??2019. ??Patient reminded he needs antibiotics around the time of dental work and to inform his dentist of the presence of the valve. Sees [facility] cardiology infollow up summer 2022 ?? It has been a pleasure seeing??Mr.??Fisher??in clinic today. ?? Javid [place] DO Pager [phone] Infectious Diseases ?? Currently employed:??No ?? Adherence counseling:??Yes ?? Linguistic services:?No ?? Patient with HIV (-) partner:??No ?? HIV (-) partner tested within the last 12 months:??Not applicable ?? Partner notification discussed:??Not applicable ?? Social History Social History ? Tobacco Use Smoking Status Former Smoker ??? Years: 2.00 ??? Types: Cigarettes ??? Last attempt to quit: 09/17/1988 ??? Years since quittin.5 Smokeless Tobacco Never Used ? Smoking cessation discussed:?No ?? Gonorrhea and chlamydia testing done in the past year:??No, not sexually active or in a mutually monogamous relationship over the past 12 mos ?? Oral exam done at this visit:??No ?? Seen by dentist in the past year.?Yes ?? Referred to dentist at this visit:?No ?? Housing:??Stable ?? HIV risk reduction counseling:??Yes ?? Screened for mental health:??Yes ?? Screened for substance abuse:??Yes ?? Current substance use (used more than once in the past 12 months):??none ? documented in this encounter Plan of Treatment Upcoming Encounters Date Type Department Care Team (Latest Contact Info) Description 05/13/2024 9:15 EDT Ancillary Procedure [facility] Cardiology - [address] [place] [address] History of aortic valve replacement; Elevated blood pressure reading 05/13/2024 11:00 EDT Office Visit [facility] Cardiology - [address] [place], [place] [id number] Jose Stauffer MD [address] [facility] [address] [place] [address] documented as of this encounter Visit Diagnoses Diagnosis Asymptomatic HIV infection ([facility])- Primary Asymptomatic human immunodeficiency virus (HIV) infection status History of aortic valve replacement Heart valve replaced by other means Elevated blood pressure reading Elevated blood pressure reading without diagnosis of hypertension documented in this encounter Care Teams Environmental Inspector Relationship Specialty Start Date End Date Lorrie Conte MD PCP - General 10/19/17 documented as of this encounter
--- OUTSIDE RECORDS SUMMARY | 2024-05-12 17:05 | XMS_ITS | Encounter Summary ---
Author Organization [facility] Address [address] [place] [address] Care Team Providers Care Fitter / Welder Name Role Phone Lorrie Conte MD Primary Care Provider [phone]- [phone] Encounter Details Date Type Department Care Team (Late st Contact Info) Description 09/07/2022 Specialty Pharmacy [facility] Ambulatory Pharmacy - [facility] [address] [place], [place] [address] Lovely Huber, [facility] Social History Tobacco Use Types Packs/Day Years [...] as of this encounter Progress Notes * Tg Torre - 09/07/2022 1605 EST [facility] Specialty Pharmacy Delivery Information Hours: Sunday-Sunday 8:30am - 5:00pm *Pharmacist available construction producer 09/04 Delivery Service: [employer] Delivery Window: None Specified Date of Delivery: (08/25) Tracking # : [id number] documented in this encounter Plan of Treatment Upcoming Encounters Date Type Department Care Team (Latest Contact Info) Description 05/13/2024 9:15 EDT Ancillary Procedure [facility] Cardiology - [address] [place], [place] [id number] History of aortic valve replacement; Elevated blood pressure reading 05/13/2024 11:00 EDT Office Visit [facility] Cardiology [address] [place] [address] Jose Stauffer MD [address] [place] [address] [address] [place] [address] documented as of this encounter Visit Diagnoses Not on filedocumented in this encounter Care Teams Fitter / Welder Relationship Specialty Start Date End Date Lorrie Conte MD PCP - General 10/19/17 documented as of this encounter
--- OUTSIDE RECORDS SUMMARY | 2024-05-12 17:05 | XMS_ITS | Encounter Summary ---
Author Organization [facility] Address [address] [place] [address] Care Team Providers Care Professor Of Literature Name Role Phone Lorrie Conte MD Primary Care Provider [phone] [phone] Reason for Visit * Reason Comments Medications Refill Encounter Details Date Type Department Care Team (Late st Contact Info) Description 05/15/2023 Specialty Pharmacy [facility] Ambulatory Pharmacy - [facility] [address] [place] [address] Lovely Huber, [facility] Social History Tobacco Use Types [...] 50-200-25 mg per tabletIndications:Asympto matic HIV infection ([facility]-CMS) Take 1 Tablet by mouth daily. 90 Tablet 1 05/31/2023 10/16/2023 documented in this encounter Progress Notes * Quincy Allan RPH - 05/15/2023 1614 EDT Refill request received for bictegravir-tenofovir alafenamide-emtricitabine (Biktarvy) by pharmacy. Last office visit with Dr. Javid Parker on 05/14/23. Next office visit not yet scheduled. Labs: GFR, Calculated (ml/min/1.73m2) Date Value 05/26/2019 90 Refill request processed and sent to Dr. Parker for cosignature. Quincy Allan, PharmD Ambulatory Pharmacist [facility] Infectious Disease 05/31/2023 documented in this encounter Miscellaneous Notes * Addendum Note - Quincy Allan RPH - 05/15/2023 1614 EDTAddended by: QUINCY ALLAN on: 05/31/2023 14:44 Modules accepted: Orders documented in this encounter Plan of Treatment Upcoming Encounters Date Type Department Care Team (Latest Contact Info) Description 05/13/2024 9:15 EDT Ancillary Procedure [facility] [place] [address] History of aortic valve replacement; Elevated blood pressure reading 05/13/2024 11:00 EDT Office Visit [facility] [place] [address] Jose Stauffer MD [address] [facility] [address] [place] [address] documented as of this encounter [...] 50-200-25 mg per tabletIndications:Asympto matic HIV infection ([facility]) Take 1 Tablet by mouth daily. Reorder 03/14/2023 05/31/2023 documented as of this encounter Care Teams Professor Of Literature Relationship Specialty Start Date End Date Lorrie Conte MD PCP - General 10/19/17 documented as of this encounter
--- OUTSIDE RECORDS SUMMARY | 2024-05-12 17:05 | XMS_ITS | Encounter Summary ---
Author Organization [facility] Address [address] [place] [address] Care Team Providers Care Tow Motor Mechanic Name Role Phone Lorrie Conte MD Primary Care Provider [phone]- [phone] Encounter Details Date Type Department Care Team (Late st Contact Info) Description 11/30/2022 Specialty Pharmacy [facility] Ambulatory Pharmacy - [facility] [place] [address] [place], [place] [phone] Lovely Huber, [facility] Social History Tobacco Use Types Packs/Day Years [...] 05/13/2024 9:15 EDT Ancillary Procedure [facility] Cardiology [address] [place] [address] History of aortic valve replacement; Elevated blood pressure reading 05/13/2024 11:00 EDT Office Visit [facility] Cardiology [address] [place] [address] Jose Stauffer MD [address] [place] [address] [address] [place] [address] documented as of this encounter Visit Diagnoses Not on filedocumented in this encounter Care Teams Tow Motor Mechanic Relationship Specialty Start Date End Date Lorrie Conte MD PCP - General 10/19/17 documented as of this encounter
--- OUTSIDE RECORDS SUMMARY | 2024-05-12 17:05 | XMS_ITS | Encounter Summary ---
Author Organization [facility] Address [address] [place] [address] Care Team Providers Care Patient Svcs Mgr Name Role Phone Lorrie Conte MD Primary Care Provider [phone] Reason for Visit * Reason Comments HIV Positive/AIDS Encounter Details Date Type Department Care Team (Late st Contact Info) Description 10/04/2020 10:30 EST Telemedicine [facility] Infectious Disease [address] [address] Javid Parker, DO [address] [facility], [address] [place] [address] Asymptomatic HIV infection (HCC-CMS) (Primary [...] Progress Notes * Javid Parker, DO - 10/04/2020 1030 EST I spent a total of 30 minutes on the date of this encounter meeting with the patient and reviewing documentation/coordinating care as described in the above note. No procedures were performed at the time of the visit. Division of Infectious Disease Follow up/Progress Note 10/04/20 8:42 TELEMEDICINE VIDEO VISIT Today's visit was provided through telemedicine video conferencing: The location of the patient : Home The location of the provider: Office The following staff and their role did [...] in patient???s medical or mental health care. Chief Complaint: HIV follow-up care? HPI:??Mr.??Fisher??is a 70 y.o.??male??with history significant for newly diagnosed HIV??who presents with??follow up. ?HIV diagnosed in March 2019 by PCM with a positive 4th gen Ab/Ag test done aspart of a viral syndrome work up??.?Initial??CD4 done in Apr was 529 at 16%, HIV VL 94,797. ??Pt started on Biktarvy on 26 April 2019 with perfect adherence. ?Genotype showed no evidence ofresistance.?On next set of labs 16 May 2020 (done due to AVR surgery ), VL down to 386 and CD4??616??at 17%.? Most recent labs from??Sep 2020 show VL 26 and CD4 813 which is very encouraging. His last viral load in March 2020 was undetectable but are not discouraged by a viral load of 26. ?? We suspect he acquired HIV infection??in??[place] (on/about 13 February??2019) from a??female whom he didn't know very well??and I suspect could have been a sex worker. ??Pt denies MSM. He [facility] by [facility])??and done for just primary care-routine screening. ?? Biktarvy??started??on 26 April 2020,however pt noted SOB develop several days prior to starting ART. ??He was seen by PCM who got an echo that showed severe??AV regurg and was referred to [facility] where on May, pt had AVR and CABG X2. ??Pt d/c home but SOB/FOSTER continued and pt seen bypulmonary who has dx pt with some degree of diaphragmatic dysfunction. ?? No fevers, chills, night sweats, nausea, vomiting or diarrhea.?Perfect adherence with Biktarvy.?He has two daughters locally that visit him frequently. Patient had a partial knee replacementa few weeks ago and is done remarkably well postop. ?? Review of Systems: 10-point review of systems is negative except as noted in the HPI. ?? Past Medical History: BPH Acute retroviral syndrome summer 2018 ??esophageal candidiasis 2018 Tachycardia work up with holter monitor in past Thrombocytopenia: Baseline platelets range from 80-90. 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 Bilateral chronic uveitis: Seen at [facility]. 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 Past Surgical History:?? Knee injections for DJD. Aortic valve replacement [facility] May 2019 CABG x 2 2018?? Knee replacement 2020 ?? MEDICATIONS Kvng started 26 April 2019 ?? Allergies not on file ?? 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 Sexual:??Patient denies MSM. ??His last sexual contact prior to the one in [facility] in 2018, was in [place] around 2011. ??Patient sounds like he spent less than a week with this woman that he met in [facility]. ??He does not know anything about her history. Exercise:??Busy with yard work. Travel:??From [place]. 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 ??Only other recent travel was a trip to [facility] in January 2019, then to [place] February 2019. ??Both were vacations ? Social [...] Gets together: Not on file ? Attends catholic service: Not on file ? Active member [...] state. ?? Physical Exam AAOx3, very pleasant, seen with one of his daughters Aydee today. ?? 25 April??2019??HIV genotype no resistance genes. ?? Assessment and Plan: ?? #) HIV - Diagnosed in??March 2019, baseline CD4 count 529 at 16% and initial??HIV viral load 94,000. ??Genotype shows no resistance genes. - Prior regimens include??none - Currently on??Biktarvy started 26 April 2019.?Sep 2020 labs show CD4 813 and viral load 26. - OI prophylaxis:??NA - Compliance:??Perfect - Sexual activity:??None since [facility] January 2019 - G/C, RPR: April 2019 RPR nonreactive. ??April 2019 urine gonorrhea chlamydia negative - HBV/HCV: Hepatitis A, HCV antibody negative, hepatitis B surface antigen negative, hepatitis B core antibody negative, hepatitis B surface antibody negative, - Dental exam??normal dentition 2018 -??HLA??B 5701 negative -QuantiFERON gold -March 2019. ??Toxoplasma IgG negative, toxoplasma IgM negative,??CMV IgG positive, CMV IgM negative.? - Follow up with me in??6 months. Zoom visit seem to work very well ?? #) Health maintenance - Cholesterol:??Per PCM - Diabetes:??Screening per PCM - Colonoscopy:??Screening colonoscopy 2018 tubular adenoma. - Immunizations:??flu fall 2019, Tdap 2013, shingles 2013, pneumovax 2016. ??Needs prevnar 13 atnext Face to face visit with HBV and meningitis but Loulou will check with PCM about vaccines he mayhave already had. ?? #)??Orthopneic dyspnea, pt still being worked up by pulm and pt wearing what sounds like CPAP mask at night which is helping for some degree of diaphragmatic dysfuction. ?#) Status post aortic valve replacement. Patient reminded he needs antibiotics around the time ofdental work and to inform his dentist of the presence of the valve. ?? It has been a pleasure seeing??Mr.??Fisher??in clinic today. ?? Javid Parker DO Pager 2015 Infectious Diseases ?? Currently employed: No ?? Adherence counseling: Yes ?? Linguistic services: No ?? Patient with HIV (-) partner: No ?? HIV (-) partner tested within the last 12 months: Not applicable ?? Partner notification discussed: Not applicable ?? Social History Social History ?? Tobacco Use Smoking Status Former Smoker ??? Years: 2.00 ??? Types: Cigarettes ??? Last attempt to quit: 09/17/1988 ??? Years since quittin.5 Smokeless Tobacco Never Used ? Smoking cessation discussed: No ?? Gonorrhea and chlamydia testing done in the past year: No, not sexually active or in a mutually monogamous relationship over the past 12 mos ?? Oral exam done at this visit: No ?? Seen by dentist in the past year. Yes ?? Referred to dentist at this visit: No ?? Housing: Stable ?? HIV risk reduction counseling: Yes ?? Screened for mental health: Yes ?? Screened for substance abuse: Yes ?? Current substance use (used more than once in the past 12 months): none ?? documented in this encounter Plan of Treatment Upcoming Encounters Date Type Department Care Team (Latest Contact Info) Description 05/13/2024 9:15 EDT Ancillary Procedure [facility] [place] [address] History of aortic valve replacement; Elevated blood pressure reading 05/13/2024 11:00 EDT Office Visit [facility] [place] [address] Stauffer, Jose Edward, MD [address] [place] [phone] documented as of this encounter Visit Diagnoses Diagnosis Asymptomatic HIV infection (HCC-CMS)- Primary Asymptomatic human immunodeficiency virus (HIV) infection status History of aortic valve replacement Heart valve replaced by other means Elevated blood pressure reading Elevated blood pressure reading without diagnosis of hypertension documented in this encounter Care Teams Patient Svcs Mgr Relationship Specialty Start Date End Date Lorrie Conte MD PCP - General 10/19/17 documented as of this encounter
--- OUTSIDE RECORDS SUMMARY | 2024-05-12 17:05 | XMS_ITS | Encounter Summary ---
Author Organization [facility] Address [address] [place] [address] Care Team Providers Care Coach Driver Name Role Phone Lorrie Conte MD Primary Care Provider [phone] Encounter Details Date Type Department Care Team (Late st Contact Info) Description 04/12/2020 Lab Requisition [facility] Pathology & Laboratory Medicine - [facility] [address] [place] [address] Outr Resulting Lab, Provider Social History Tobacco Use Types Packs/Day Years Used Date Smoking Tobacco: Former Cigarettes 0 09/17/1986 - 09/17/1988 Smokeless Tobacco: Never Alcohol Use Standard Drinks/Week Comments Yes 0 (1 standard drink = 0.6 oz pur e alcohol) Occasional Sex and Gender Information Value Date Recorded [...] Info) Description 05/13/2024 9:15 EDT Ancillary Procedure [facility] Cardiology [facility] [address] [facility] [place] [address] History of aortic valve replacement; Elevated blood pressure reading 05/13/2024 11:00 EDT Office Visit [facility] Cardiology - [facility] [address] [facility] [place] [address] Jose Stauffer MD [address] [place] [address] documented as of this encounter Procedures Procedure Name Priority Date/Time Associated Diagnosis Comments HIV 1 RNA QUANTITATION Routine 04/12/2020 14:13 EDT documented in this encounter Results * HIV 1 RNA QUANTITATION (04/12/2020 14:13 EDT) HIV RNA Detection, Qual Undetected Undetected copies/mL 04/15/2020 15:03 EDT [facility] Blood VENOUS BLOOD / Unknown 04/12/2020 14:13 EDT 04/12/2020 21:27 EDT Narrative [facility] - 04/15/2020 15:03 EDT The quantification range of this assay is 20 IU/mL to 10,000,000 IU/mL. ??Testing was performed on the ENMAN[employer]EL Ampliprep/ENMANUEL TaqMan HIV v2.0 ([employer] Provider Outr Resulting Lab CHEMISTRY & BLOOD GAS ORDERABLES [facility] [address] [place] [address] documented in this encounter Visit Diagnoses Not on filedocumented in this encounter Care Teams Coach Driver Relationship Specialty Start Date End Date Lorrie Conte MD PCP - General 10/19/17 documented as of this encounter
--- OUTSIDE RECORDS SUMMARY | 2024-05-12 17:05 | XMS_ITS | Encounter Summary ---
Author Organization [facility] Address [address] [place] [address] Care Team Providers Care Certified Medical Dosimetrist Name Role Phone Lorrie Conte MD Primary Care Provider [phone]- [phone] Encounter Details Date Type Department Care Team (Late st Contact Info) Description 04/16/2023 Specialty Pharmacy [facility] - Main [place] [address] [place], [place] [address] Lovely Huber, [facility] Social History Tobacco Use Types Packs/Day [...] EDT Ancillary Procedure [facility] Cardiology [address] [place] [address] History of aortic valve replacement; Elevated blood pressure reading 05/13/2024 11:00 EDT Office Visit [facility] Cardiology [address] [place] [address] Jose Stauffer MD [address] [place] [address] [address] [place] [address] documented as of this encounter Visit Diagnoses Not on filedocumented in this encounter Care Teams Certified Medical Dosimetrist Relationship Specialty Start Date End Date Lorrie Conte MD PCP - General 10/19/17 documented as of this encounter
--- OUTSIDE RECORDS SUMMARY | 2024-05-12 17:05 | XMS_ITS | Encounter Summary ---
Author Organization [facility] Address [address] [place] [address] Care Team Providers Care Paper Making Machine Operator Name Role Phone Lorrie Conte MD Primary Care Provider [phone]- [phone] Reason for Visit * Reason Comments Heart Problem Televideo visit Shortness of Breath Chest Pressure Encounter Details Date Type Department Care Team (Late st Contact Info) Description 02/17/2020 10:30 EDT Telemedicine [facility] Cardiology - [address] [place] [address] Jose Roy MD [address] [facility] [address] [place] [address] H/O prosthetic aortic valve replacement (Primary Dx); Shortness of breath Social History Tobacco Use Types Packs/Day Years [...] on file documented as of this encounter Last Filed Vital Signs Vital Sign Reading Time Taken Comments Blood Pressure 128/68 02/17/2020 0839 EDT Pulse 74 02/17/2020 0839 EDT Temperature - - Respiratory Rate - - Oxygen Saturation - - Inhaled Oxygen Concentration - - Weight 83.9 kg (185 lb) 02/17/2020 0839 EDT Height 162.6 cm (5' 4.02) 02/17/2020 0839 EDT Body Mass Index 31.74 02/17/2020 0839 EDT documented in this encounter Functional Status Functional Status Response [...] as of this encounter Progress Notes * Jose Roy MD - 02/17/2020 1030 EDT Date: 02/17/2020 Follow-up visit Type of visit: Televideo-short Primary diagnosis: Aortic valve regurgitation s/p aortic valve replacement and CAD s/p CABG (05/22/20- details below). Subjective: Mr. Fisher feels well overall. He has golfed twice, and he has been doing a lot of yardwork. He has some dyspnea when ascending a hill, but otherwise has done okay. He is using BiPAP at night and has an appointment in pulmonary medicine tomorrow. He had a recent echocardiogram (done locally). I do not have the results. He denies chest pain, tachypalpitations, PND, orthopnea, syncope,and near-syncope. He had one episode of mild edema for which he took a furosemide (20mg) with resolution of the edema. COVID-19 related questions: no fevers or cough. He is sheltering in place and wearing a mask when appropriate. Cardiovascular history: the following is cut and pasted from Dr. Estevez's operative note (05/22/20). PROCEDURE: ??On-pump aortic valve replacement (large Perceval valve), coronary artery bypass x2 (right greater saphenous vein to obtuse marginal and posterior descending coronary arteries), endoscopic right greater saphenous vein harvest. Hypoxemia: with regards to his positional (supine) hypoxemia, Mr. Fisher still has some mild shortness of breath in the supine position (orthopnea) but it is better with the BiPAP. Evaluation for theproblem included a neurological evaluation, PFTs, and a chest CT. According to neurology, he does not have a neurological cause of this problem. ID does not feel that it is related to either HIV or his HIV medications. The PFTs were somewhat abnormal. The chest CT was unremarkable. An agitated saline contrast study done in the hospital was normal. Medications: Medications, including dosages and frequency, were reviewed. Cardiovascular medications: Atorvastatin 20 mg daily. Aspirin 81 mg daily. Objective: Alert and oriented and able to answer all questions and interact appropriately. A full physical exam was not possible. Home vitals: Blood pressure 128/68, heart rate 74, weight 185 lbs. There was no jugular venous distention. Diagnostic testing: None. Assessment and plan: Mr. Fisher is doing well. I requested that he have the technical communication teacher send me his note, PFT results,and a copy of the echo report. I plan to see Mr. Fisher in 1 year without an echocardiogram. JOSE ROY MD Attending Telex Operator [facility] Note: Overall, I spent 30 minutes evaluating Mr. Fisher (20 minutes [id number] via video). > 50% of the [id number] video time was spent in discussion // counseling related to his heart. I recommended a daily walk of 30-45 minutes. Note: 1. The patient verbally consented to this televideo visit. 2. Mr. Fisher's daughter )Ines) was present on the video. 3. The visit involved medical decision making that necessitated my involvement. 4. This televideo visit substituted for an in-person clinic/office visit. 5. The patient was at home, and I was at our [facility]iology office. documented in this encounter Plan of Treatment Upcoming Encounters Date Type Department Care Team (Latest Contact Info) Description 05/13/2024 9:15 EDT Ancillary Procedure [facility] Cardiology - [address] [place] [address] History of aortic valve replacement; Elevated blood pressure reading 05/13/2024 11:00 EDT Office Visit [facility] Cardiology - [facility] [address] [facility] [place] [address] Jose Roy MD [address] [place] [id number] documented as of this encounter Visit Diagnoses Diagnosis H/O prosthetic aortic valve replacement- Primary Heart valve replaced by other means Shortness of breath History of aortic valve replacement Heart valve replaced by other means Elevated blood pressure reading Elevated blood pressure reading without diagnosis of hypertension documented in this encounter Discontinued Medications Medication Sig Discontinue Reason Start Date End Da te acetaminophen (TYLENOL) 500 mg tablet Take 1 Tab by mouth every 6 hours as needed for Pain. 05/26/2019 02/17/2020 furosemide (LASIX) 20 mg tablet Take 20 mg by mouth daily. 02/17/2020 documented as of this encounter Historical Medications * This list may reflect changes made after this encounter. Medication Sig Dispensed Refills Start Date End Date atorvastatin (LIPITOR) 20 mg tablet Take 1 Tablet by mouth daily. melatonin 5 mg tablet Take 3 mg by mouth at bedtime. furosemide (LASIX) 20 mg tablet Take 20 mg by mouth daily. 02/17/2020 added in this encounter Care Teams Paper Making Machine Operator Relationship Specialty Start Date End Date Lorrie Conte MD PCP - General 10/19/17 documented as of this encounter
--- OUTSIDE RECORDS SUMMARY | 2024-05-12 17:05 | XMS_ITS | Encounter Summary ---
Author Organization [facility] Address [address] [place] [address] Care Team Providers Care Box Blank Machine Operator Name Role Phone Lorrie Conte MD Primary Care Provider +1 [phone] Reason for Visit * Reason Comments Follow-up Encounter Details Date Type Department Care Team (Late st Contact Info) Description 05/09/2021 10:30 EDT Telemedicine [facility] Infectious Disease [address] [address] Javid Parker, DO 111 [facility], [address] [place] [address] Asymptomatic HIV infection (HCC-CMS) (Primary [...] Take 1 Tablet by mouth daily for 30 days. 30 Tablet 11 05/09/2021 06/08/2021 documented in this encounter Progress Notes * Javid Parker, DO - 05/09/2021 1030 EDT I spent a total of 30 minutes on the date of this encounter meeting with the patient and reviewing documentation/coordinating care as described in the above note. No procedures were performed at the time of the visit. Division of Infectious Disease Follow up/Progress Note 05/09/21 8:39 TELEMEDICINE VIDEO VISIT Today's visit was provided [...] Chief Complaint: HIV follow-up care? HPI:??Mr.??Fisher??is a 70??y.o.??male??with history significant for newly diagnosed HIV??who presents with??follow up. ?HIV diagnosed in March 2019 by PCM with a positive 4th gen Ab/Ag test done as part of a viral syndrome work up??.?Initial??CD4 done in Apr was 529 at 16%, HIV VL 94,797. ??Pt started on Biktarvy on 26 April 2019 with perfect adherence. ?Genotype showed no evidence of resistance.?On next set of labs 16 May 2020 (done due to AVR surgery ), VL down to 386 andCD4??616??at 17%.? Most recent labs from??Sep 2020 show VL 26 and CD4 813 which is very encouraging. His last viral load in March 2020 was undetectable but are not discouraged by a viral load of 26. ?? We suspect he acquired HIV infection??in??[place] (on/about 13 February??2018) from a??female whom he didn't know very well??and I suspect could have been a sex worker. ??Pt denies MSM. He [facility] by [facility])??and done for just primary care-routine screening. ?? Biktarvy??started??on 26 April??2020,however pt noted SOB develop several days prior to starting ART. ??He was seen by PCM who got an echo that showed severe??AV regurg and was referred to CT surgery at [facility] where on 22 May 2019, pt had AVR and CABG X2. ?Perfect adherence with Biktarvy and has a great supply.?He has two daughters locally that??visit him frequently. Patient had a partial knee replacement in Aug 2020 and saw cardiology In follow up in February 2021. Things are going so well after his aortic valve replacement that he does not need to see cardiology until 2022. He is planning on a long vacation in [place] next summer. ?? Review of Systems: 10-point review of systems is negative except as noted in the HPI. ?? Past Medical History: BPH Acute retroviral syndrome summer 2018 ??esophageal candidiasis 2019 Tachycardia work up with holter monitor in past Thrombocytopenia: Baseline platelets range from 80-90. 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 DJD Severe??AV regurg dx 2019 Positional hypoxemia, etiology unknown ?? Past Surgical History:?? Knee injections for DJD. Aortic valve replacement [facility] May 2019 CABG x 2 2018?? Knee replacement 2019 ?? MEDICATIONS Biktarvy started 26 April 2019 ?? Allergies not on file ?? 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 Sexual:??Patient denies MSM. ??His last sexual contact prior to the one in [facility] in 2018, was in [place] around 2011. ??Patient sounds like he spent less than a week with this woman that he met in [facility]. ??He does not know anything about her history. Exercise:??Busy with yard work. Travel:??From [place]. 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 ??Only other recent travel was a trip to [facility] in January 2019, then to [place]. ??Both were vacations ? Social [...] Gets together: Not on file ? Attends taoism service: Not on file ? Active member [...] show CD4 813 and viral load 26. Current labs drawn April 2021 are pending. - OI prophylaxis:??NA - Compliance:??Perfect - Sexual activity:??None since [place] January 2019 - G/C, RPR: April 2019 [...] negative.? -??Follow up with me in??6 months. Zoom visit seem to work very well ?? #) Health maintenance - Cholesterol:??Per PCM - Diabetes:??Screening per PCM - Colonoscopy:??Screening colonoscopy 2018 tubular adenoma. - Immunizations:??flu fall 2019, Tdap 2013, shingles 2014, pneumovax 2016. COVID vaccine 2020. ??Needs to check with PCM about prevnar 13 and hepatitis B vaccinations. ?? #)??Orthopneic dyspnea, etiology never clear, patient given CPAP machine but it does not sound likehe needs to use it anymore. ?#) Status post aortic valve replacement 2018. Patient reminded he needs antibiotics around the time of dental work and to inform his dentist of the presence of the valve. ?? It has been a pleasure seeing??Mr.??Fisher??in clinic today. ?? Javid Parker DO Pager [phone] Infectious Diseases ?? Currently employed:??No ?? Adherence [...] Info) Description 05/13/2024 9:15 EDT Ancillary Procedure [facility] Cardiology - [address] [place] [address] History of aortic valve replacement; Elevated blood pressure reading 05/13/2024 11:00 EDT Office Visit [facility] Cardiology - [address] [place] [address] Jose Stauffer MD [address] [facility] [address] [place] [address] documented as of this encounter Visit Diagnoses Diagnosis Asymptomatic HIV infection (HCC-CMS)- Primary Asymptomatic human immunodeficiency virus (HIV) infection status History of aortic valve replacement Heart valve replaced by other means Elevated blood pressure reading Elevated blood pressure reading without diagnosis of hypertension documented in this encounter Care Teams Box Blank Machine Operator Relationship Specialty Start Date End Date Lorrie Conte MD PCP - General 10/19/17 documented as of this encounter
--- OUTSIDE RECORDS SUMMARY | 2024-05-12 17:05 | XMS_ITS | Encounter Summary ---
Author Organization [facility] Address [address] [place] [address] Care Team Providers Care Transportation Officer Name Role Phone Lorrie Conte MD Primary Care Provider [phone] Reason for Visit * Reason Comments Other Encounter Details Date Type Department Care Team (Late st Contact Info) Description 10/06/2020 [facility] Infectious Disease [address] [address] Javid Parker, DO 111 [facility], [facility] [address] [place] [address] Other Social History Tobacco Use Types Packs/Day Years [...] Dispensed Refills Start Date End Da te BIKTARVY 50-200-25 mg per tablet TAKE ONE TABLET BY MOUTH ONCE DAILY 30 Tab 11 10/06/2020 09/27/2021 documented in this encounter Miscellaneous Notes * Telephone Encounter - Petra Mensah RN - 10/06/2020 1512 EST Electronic prescription for Biktarvy sent to pharmacy. PETRA MENSAH RN documented in this encounter Plan of Treatment Upcoming Encounters Date Type Department Care Team (Latest Contact Info) Description 05/13/2024 9:15 EDT Ancillary Procedure [facility] Cardiology - [address] [place] [address] History of aortic valve replacement; Elevated blood pressure reading 05/13/2024 11:00 EDT Office Visit [facility] Cardiology - [address] [place], [place] [id number] Jose Stauffer MD [address] [place] [address] [address] [place] [address] documented as of this encounter Visit Diagnoses Not on filedocumented in this encounter Discontinued Medications Medication Sig Discontinue Reason Start Date End Da te bictegravir-emtricitabine -tenofovir alafenamide (BIKTARVY) 50-200-25 mg per tablet Take 1 Tab by mouth daily. 10/06/2020 documented as of this encounter Care Teams Transportation Officer Relationship Specialty Start Date End Date Lorrie Conte MD PCP - General 10/19/17 documented as of this encounter
--- OUTSIDE RECORDS SUMMARY | 2024-05-12 17:05 | XMS_ITS | Encounter Summary ---
Author Organization [facility] Address [address] [place] [address] Care Team Providers Care Line Closer Name Role Phone Lorrie Conte MD Primary Care Provider [phone]- [phone] Encounter Details Date Type Department Care Team (Late st Contact Info) Description 12/27/2022 Lab Requisition [facility] Pathology & Laboratory Medicine - [facility] [address] [place] [address] Wolfgang Soto MD [address] [place] [address] Bullous keratopathy, left eye Social History Tobacco Use Types Packs/Day Years [...] Info) Description 05/13/2024 9:15 EDT Ancillary Procedure [facility] Cardiology - [address] [place] [address] History of aortic valve replacement; Elevated blood pressure reading 05/13/2024 11:00 EDT Office Visit [facility] Cardiology [address] [place] [address] Jose Stauffer MD [address] [place] [address] [address] [place] [address] documented as of this encounter Procedures Procedure Name Priority Date/Time Associated Diagnosis Comments FUNGUS CULTURE Today 12/27/2022 11:53 EDT Bullous keratopathy, left eye STERILITY CULTURE Today 12/27/2022 11: 53 EDT Bullous keratopathy, left eye documented in this encounter Results * FUNGUS CULTURE (12/27/2022 11:53 EDT) Organism ID No fungi isolated 01/24/2023 12:01 EDT [facility] Tissue (Optisol solution and scleral rim) 12/27/2022 11:53 EDT 12/27/2022 14:04 EDT Wolfgang Soto MD MICROBIOLOGY - GENER AL ORDERABLES [facility] [address] [place] [address] * STERILITY CULTURE (12/27/2022 11:53 EDT) Organism ID No Growth 01/03/2023 10:15 EDT [facility] Media (Optisol solution and scleral rim) 12/27/2022 11:53 EDT 12/27/2022 14:03 EDT Wolfgang Soto MD MICROBIOLOGY - GENER AL ORDERABLES [facility] [address] [place] [address] documented in this encounter Visit Diagnoses Diagnosis Bullous keratopathy, left eye History of aortic valve replacement Heart valve replaced by other means Elevated blood pressure reading Elevated blood pressure reading without diagnosis of hypertension documented in this encounter Care Teams Line Closer Relationship Specialty Start Date End Date Lorrie Conte MD PCP - General 10/19/17 documented as of this encounter
--- OUTSIDE RECORDS SUMMARY | 2024-05-12 17:05 | XMS_ITS | Encounter Summary ---
Author Organization [facility] Address [address] [place] [address] Care Team Providers Care Atomic Physics Professor Name Role Phone Lorrie Conte MD Primary Care Provider [phone]- [phone] Encounter Details Date Type Department Care Team (Late st Contact Info) Description 05/03/2020 Specialty Pharmacy [facility] - [facility] [address] [place], [place] [id number] Giselle Posada [facility] [address] [place], [place] [address] Social History Tobacco Use Types Packs/Day Years [...] as of this encounter Progress Notes * Giselle Posada - 05/03/2020 1059 EDT [facility] Patient's chart reviewed for [facility] Specialty Pharmacy clinical review. He will be called the week of 05/05 to offer specialty pharmacy services for Biktarvy. Giselle Posada PharmD Pharmacist Clinician - Gastroenterology/Hepatology 05/04/2020 * Giselle Posada - 05/03/2020 1051 EDT [facility] Patient has declined specialty pharmacy services. He will be discharged from the specialty pharmacydatabase at this time and will continue filling HIV medications through the [facility] mail order pharmacy. Giselle Posada PharmD Pharmacist Clinician - Gastroenterology/Hepatology 05/10/2020 documented in this encounter Plan of Treatment Upcoming Encounters Date Type Department Care Team (Latest Contact Info) Description 05/13/2024 9:15 EDT Ancillary Procedure [facility] Cardiology - [facility] [place] [address] History of aortic valve replacement; Elevated blood pressure reading 05/13/2024 11:00 EDT Office Visit [facility] Cardiology - [place] [address] Jose Stauffer MD [address] [place] [address] documented as of this encounter Visit Diagnoses Not on filedocumented in this encounter Care Teams Atomic Physics Professor Relationship Specialty Start Date End Date Lorrie Conte MD PCP - General 10/19/17 documented as of this encounter
--- OUTSIDE RECORDS SUMMARY | 2024-05-12 17:05 | XMS_ITS | Encounter Summary ---
Author Organization [facility] Address [address] [place] [address] Care Team Providers Care Sanitation Manager Name Role Phone Lorrie Conte MD Primary Care Provider [phone] [phone] Reason for Visit * Reason Onset Date Comments Medication Questions 03/14/2023 Encounter Details Date Type Department Care Team (Late st Contact Info) Description 03/14/2023 Telephone [facility] Infectious Disease - [facility] [address] [place], [place] [address] Javid Parker, DO 111 [facility], [address] [place] [address] Medication Questions Social History Tobacco Use Types Packs/Day Years [...] No 06/18/2019 documented as of this encounter Miscellaneous Notes * Telephone Encounter - Shannon Pepper RN - 03/14/2023 1605 EDT Confirmed with pharmacy that Biktarvy will be filled by specialty pharmacy and will be delivered --they will be calling him to coordinate. No medications for him to pickle solution maker at the [facility] (confirmed with [facility] pharmacy). Patient made aware. SHANNON PEPPER RN * Telephone Encounter - Chayo Soliman - 03/14/2023 1556 EDT Patient called, he received a call from [facility] Pharmacy to advise that his medication is ready for collection. Patient stated that his medication is usually delivered to him. Call back number [phone] documented in this encounter Plan of Treatment Upcoming Encounters Date Type Department Care Team (Latest Contact Info) Description 05/13/2024 9:15 EDT Ancillary Procedure [facility] Cardiology - [facility] [place] [address] History of aortic valve replacement; Elevated blood pressure reading 05/13/2024 11:00 EDT Office Visit [facility] Cardiology - [facility] [place] [address] Jose Stauffer MD [address] [facility] [address] [place] [address] documented as of this encounter Visit Diagnoses Not on filedocumented in this encounter Care Teams Sanitation Manager Relationship Specialty Start Date End Date Lorrie Conte MD PCP - General 10/19/17 documented as of this encounter
--- OUTSIDE RECORDS SUMMARY | 2024-05-12 17:05 | XMS_ITS | Encounter Summary ---
Author Organization [facility] Address [address] [place] [address] Care Team Providers Care Biomedical Engineering Technologist Name Role Phone Lorrie Conte MD Primary Care Provider [phone]- [phone] Encounter Details Date Type Department Care Team (Late st Contact Info) Description 03/14/2023 Orders Only [facility] Infectious Disease - [facility] [place] [address] [place], [place] [address] Lovely Huber, Song Asymptomatic HIV infection ([facility]) (Primary Dx) Social History Tobacco Use Types [...] (HCC-CMS) Take 1 Tablet by mouth daily. 90 Tablet 03/14/2023 05/31/2023 documented in this encounter Plan of Treatment Upcoming Encounters Date Type Department Care Team (Latest Contact Info) Description 05/13/2024 9:15 EDT Ancillary Procedure [facility] Cardiology [address] [place] [address] History of aortic valve replacement; Elevated blood pressure reading 05/13/2024 11:00 EDT Office Visit [facility] Cardiology - [address] [place] [address] Jose Stauffer MD [address] [facility] [address] [place] [address] documented as of this encounter Visit Diagnoses Diagnosis Asymptomatic HIV infection ([facility]-CMS)- Primary Asymptomatic human immunodeficiency virus (HIV) infection status History of aortic valve replacement Heart valve replaced by other means Elevated blood pressure reading Elevated blood pressure reading without diagnosis of hypertension documented in this encounter Discontinued Medications Medication Sig Discontinue Reason Start Date End Da te BIKTARVY 50-200-25 mg per tablet TAKE ONE TABLET BY MOUTH ONCE DAILY Reorder 08/17/2022 03/14/2023 documented as of this encounter Care Teams Biomedical Engineering Technologist Relationship Specialty Start Date End Date Lorrie Conte MD PCP - General 10/19/17 documented as of this encounter
--- OUTSIDE RECORDS SUMMARY | 2024-05-12 17:05 | XMS_ITS | Encounter Summary ---
Author Organization [facility] Address [address] [place] [address] Care Team Providers Care Medical Writer Name Role Phone Lorrie Conte MD Primary Care Provider [phone] Reason for Visit * Reason Onset Date Comments Medication Questions 03/14/2023 Encounter Details Date Type Department Care Team (Late st Contact Info) Description 03/14/2023 Telephone [facility] Infectious Disease - [facility] [address] [place], [place] [address] Javid Parker, DO 111 [facility], [address] [place] [address] Medication Questions Social History Tobacco [...] encounter Miscellaneous Notes * Telephone Encounter - Chayo Soliman - 03/14/2023 7589 EDT Patient called, he received a call from the [facility] pharmacy to say that his medication is ready to be collected. Patient states that his medication is usually mailed to him. documented in this encounter Plan of Treatment Upcoming Encounters Date Type Department Care Team (Latest Contact Info) Description 05/13/2024 9:15 EDT Ancillary Procedure [facility] Cardiology - [address] [place] [address] History of aortic valve replacement; Elevated blood pressure reading 05/13/2024 11:00 EDT Office Visit [facility] Cardiology - [facility] [address] [facility] [place] [address] Jose Stauffer MD [address] [facility] [address] [place] [address] documented as of this encounter Visit Diagnoses Not on filedocumented in this encounter Care Teams Medical Writer Relationship Specialty Start Date End Date Lorrie Conte MD PCP - General 10/19/17 documented as of this encounter
--- OUTSIDE RECORDS SUMMARY | 2024-05-12 17:05 | XMS_ITS | Encounter Summary ---
Author Organization [facility] Address [address] [place] [address] Care Team Providers Care Computer Game Designer Name Role Phone Lorrie Conte MD Primary Care Provider +1 [phone] Encounter Details Date Type Department Care Team (Late st Contact Info) Description 10/25/2021 Lab Requisition [facility] Pathology & Laboratory Medicine - [facility] [address] [place] [address] Outr Resulting Lab, Provider Social History Tobacco [...] Info) Description 05/13/2024 9:15 EDT Ancillary Procedure [facility] Cardiology [address] [place] [address] History of aortic valve replacement; Elevated blood pressure reading 05/13/2024 11:00 EDT Office Visit [facility] Cardiology [address] [place] [address] Jose Stauffer MD [address] [place] [address] documented as of this encounter Procedures Procedure Name Priority Date/Time Associated Diagnosis Comments T CELL SUBSETS Routine 10/25/2021 7:17 EST HIV 1 RNA QUANTITATION Routine 10/25/2021 7:17 EST documented in this encounter Results * (ABNORMAL) HIV 1 RNA QUANTITATION (10/25/2021 7:17 EST) HIV RNA Detection, Qual Detected( A) Undetected copies/mL 10/27/2021 12:11 EST [facility] HIV 1 RNA Quant <20(H) Undetected copies/mL 10/27/2021 12:11 EST [facility] Comment:HIV-1 RNA level is < 20 copies/mL. This assay cannot accurately quantify HIV-1RNA below this level. Blood VENOUS BLOOD / Unknown 10/25/2021 7:17 EST 10/25/2021 17:40 EST Narrative [facility] - 10/27/2021 12:11 EST New platform in use 04/11/2021 The quantification range of this assay is 20 IU/mL to 10,000,000 IU/mL. ??Testing was performed using the Avis HIV test ([employer] with the avis [id number] System. Provider Outr Resulting Lab CHEMISTRY & BLOOD GAS ORDERABLES Performing Organization Address [facility] de Phone Number [facility] [address] [place] [address] * T CELL SUBSETS (10/25/2021 7:17 EST) % CD3 71 56 - 84 % 10/27/2021 16:38 [facility] % CD4 38 31 - 64 % 10/27/2021 16:38 [facility] % CD8 33 9 - 39 % 10/27/2021 16:38 [facility] Absolute CD3 1,980 840-2,669 Cells/uL 10/27/2021 16:38 [facility] Absolute CD4 1,045 488-1,734 Cells/uL 10/27/2021 16:38 [facility] Absolute CD8 919 154-1,097 Cells/uL 10/27/2021 16:38 [facility] 4/8 Ratio 1.14 >=0.90 10/27/2021 16:38 [facility] Blood VENOUS BLOOD / Unknown 10/25/2021 7:17 EST 10/25/2021 17:40 EST Provider Outr Resulting Lab IMMUNOLOGY A ND SEROLOGY ORDERABLES Performing Organization Address [facility] Co de Phone Number [facility] [address] [place] [address] documented in this encounter Visit Diagnoses Not on filedocumented in this encounter Care Teams Computer Game Designer Relationship Specialty Start Date End Date Lorrie Conte MD PCP - General 10/19/17 documented as of this encounter
--- OUTSIDE RECORDS SUMMARY | 2024-05-12 17:05 | XMS_ITS | Encounter Summary ---
Author Organization [facility] Address [address] [place] [address] Care Team Providers Care Senior Planning Analyst Name Role Phone Lorrie Conte MD Primary Care Provider [phone] [phone] Encounter Details Date Type Department Care Team (Late st Contact Info) Description 06/07/2022 Lab Requisition [facility] Pathology & Laboratory Medicine - [facility] [address] [place] [address] Outr Resulting Lab, Provider Social History Tobacco [...] Info) Description 05/13/2024 9:15 EDT Ancillary Procedure [facility] Cardiology [address] [place] [address] History of aortic valve replacement; Elevated blood pressure reading 05/13/2024 11:00 EDT Office Visit [facility] Cardiology [address] [place] [address] Jose Stauffer MD [email or web address] [place] [address] documented as of this encounter Procedures Procedure Name Priority Date/Time Associated Diagnosis Comments T CELL SUBSETS Routine 06/07/2022 8:31 EDT HIV 1 RNA QUANTITATION Routine 06/07/2022 8:31 EDT documented in this encounter Results * (ABNORMAL) HIV 1 RNA QUANTITATION (06/07/2022 8:31 EDT) HIV RNA Detection, Qual Detected( A) Undetected copies/mL 06/08/2022 11:30 EDT [facility] HIV 1 RNA Quant 23(H) Undetected copies/mL 06/08/2022 11:30 EDT [facility] Blood VENOUS BLOOD / Unknown 06/07/2022 8:31 EDT 06/07/2022 21:44 EDT Narrative [facility] - 06/08/2022 11:30 EDT The quantification range of this assay is 20 IU/mL to 10,000,000 IU/mL. ??Testing was performed using the Avis HIV test ([employer] with the avis 6800 System. Provider Outr Resulting Lab CHEMISTRY & BLOOD GAS ORDERABLES Performing Organization Address [facility] Co de Phone Number [facility] [address] [place] [address] * T CELL SUBSETS (06/07/2022 8:31 EDT) % CD3 76 56 - 84 % 06/08/2022 16:34 EDT [facility] % CD4 50 31 - 64 % 06/08/2022 16:34 EDT [facility] % CD8 26 9 - 39 % 06/08/2022 16:34 EDT [facility] Absolute CD3 1,516 840-2,669 Cells/uL 06/08/2022 16:34 EDT [facility] Absolute CD4 985 488-1,734 Cells/uL 06/08/2022 16:34 T [facility] Absolute CD8 520 154-1,097 Cells/uL 06/08/2022 16:34 EDT [facility] 4/8 Ratio 1.82 >=0.90 06/08/2022 16:34 EDT [facility] Comment:Sample retested, res ult confirmed Blood VENOUS BLOOD / Unknown 06/07/2022 8:31 EDT 06/07/2022 21:44 EDT Provider Outr Resulting Lab IMMUNOLOGY A ND SEROLOGY ORDERABLES Performing Organization Address [facility] Co de Phone Number [facility] [address] [place] [address] documented in this encounter Visit Diagnoses Not on filedocumented in this encounter Care Teams Senior Planning Analyst Relationship Specialty Start Date End Date Lorrie Conte MD PCP - General 10/19/17 documented as of this encounter
--- OUTSIDE RECORDS SUMMARY | 2024-05-12 17:05 | XMS_ITS | Encounter Summary ---
Author Organization [facility] Address [address] [place] [address] Care Team Providers Care Or Nurse Manager Name Role Phone Lorrie Conte MD Primary Care Provider Reason for Referral * Cardiology (Routine/Next Available) - Closed Specialty Diagnoses / Procedures [facility] Referred To Contact Diagnoses History of aortic valve replacement Elevated blood pressure reading Procedures TRANSTHORACIC ECHO (TTE) COMPLETE WV ECHO HEART XTHORACIC,COMPLETE W DOPPLER Jose Roy MD [address] [place] [id number] [facility] Referral ID Status Reason Start Date Expiration Date Visits Re quested Visits Authorized [id number] Closed 05/07/2023 1 1 Reason for Visit * Reason Comments Heart Problem H/O aortic valve rep lacement, 2 year follow up Encounter Details Date Type Department Care Team (Late st Contact Info) Description 05/07/2023 8:30 EDT Office Visit [facility] Cardiology - [address] [place] [address] Jose Roy MD [address] [place] [address] History of aortic valve replacement (Primary Dx); Elevated blood pressure reading Social History Tobacco Use Types Packs/Day Years [...] Time Taken Comments Blood Pressure 144/62 05/07/2023 08 EDT Pulse 65 05/07/2023 0826 EDT patient reported Temperature - - Respiratory Rate - - Oxygen Saturation 100% 05/07/2023 08 EDT Inhaled Oxygen Concentration - - Weight 92.9 kg (204 lb 12.8 oz) 05/07/2023 08 EDT Height - - Body Mass Index 35.15 02/22/2021 1018 EDT documented in this encounter Functional Status [...] Progress Notes * Jose Roy MD - 05/07/2023 0830 EDT Date: 05/07/2023 Previous evaluation: 02/22/2021 Follow-up evaluation Type of visit: In-person Primary diagnosis: Aortic valve regurgitation s/p aortic valve replacement and CAD s/p CABG (05/22/20- details below), left bundle branch block, hyperlipidemia. Subjective: Mr. Fisher feels well overall. 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 He is gardening and doing other lawn work without obvious limitation. He continues to havesome dyspnea when ascending a hill. He is using his BiPAP every night. He denied chest pain, tachypalpitations, PND, orthopnea, syncope, near-syncope, and edema. Cardiovascular history:??the following is cut and pasted from Dr. Estevez's operative note (05/22/20). PROCEDURE: ??On-pump aortic valve replacement (large Perceval valve), coronary artery bypass x2 (right greater saphenous vein to obtuse marginal and posterior descending coronary arteries), endoscopic right greater saphenous vein harvest. Hypoxemia: with regards to his positional (supine) hypoxemia, feels that he has benefited from BiPAP. Evaluation for the problem included a neurological evaluation, PFTs, and a chest CT. ??According to neurology, he does not have a neurological cause of this problem. ??ID does not feel that it is related to either HIV or his HIV medications. The PFTs were somewhat abnormal. The chest CT was unremarkable. An agitated saline contrast study done in the hospital was normal. ?? Objective: 1. Medications: reviewed and recorded in [facility]. Cardiovascular medications: Amoxicillin 200 mg 1 hour before dental evaluations. Atorvastatin 20 mg daily. Aspirin 81 mg daily. 2. Allergies: No known medication allergies. 3. Physical examination: Comfortable. Vitals: blood pressure 144/62; heart rate 65 (regular); oxygen saturation 100% (room air); weight 204 lbs (increased 14 lbs since I last saw him); height 66 inches; BMI 35.2. HEENT: anicteric sclera, normal conjunctiva, normal mucous membranes. Neck: mild increase in size. Chest: healed midline sternotomy. Lungs: clear to auscultation; no wheezes or crackles. Cardiovascular: no jugular venous distention. Carotids: normal upstroke and volume. Palpation: no thrill. Auscultation: normal S1 and paradoxically split S2. There was a 2/6 early peaking ejection murmur. There was no diastolic murmur, gallop, click or rub. Abdomen: obese; soft and non-tender; no he patosplenomegaly. Extremities: no clubbing, cyanosis, or edema. Bilateral radial pulses were normal. 4. Diagnostic testing: None today. Assessment and plan: Jose Fisher is a 72-year-old gentleman status post surgical aortic valve replacement for severe aortic regurgitation. At the time of that procedure, he also had two-vessel coronary artery bypass grafting. From the standpoint of his heart, Mr. Fisher continues to do quite well. His valve sounded great on today's physical examination. I was very pleased with the results of his echocardiogram at his evaluation 2 years ago; his prosthetic aortic valve is functioning well and biventricular function was good. Of note, Mr. Fisher developed a left bundle branch block after his open heart surgery. 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 Mr. Fisher also had an issue with positional hypoxemia in the past. The exact etiology/cause of thehypoxemia has never been entirely clear. But, he is doing extremely well at this point with BiPAP. His oxygen saturation was great today. Once again, my concern regarding Mr. Fisher is his weight gain. He is up 14 more pounds compared towhen I evaluated him 2 years ago. I had a long discussion with him regarding the importance of exercise. I explained that exercise need not be any more sophisticated than a daily, vigorous walk! His blood pressure was also higher today. He claims that it was 119 systolic when he was recently evaluated at the [facility]. I did not start any antihypertensive medications; I suggest we monitor his blood pressure very closely moving forward. I plan to see Mr. Fisher again in 1 year with an echocardiogram as part of the evaluation. I will happily see him sooner if needed. JOSE ROY MD Attending Care Management Associate [facility] I spent a total of 30 minutes on the date of this encounter evaluating Jose Fisher. This included review of old/previous records and previous imaging studies, history and physical examination, discussion // counseling related to his cardiac issues including his valve replacement and bypass and blood pressure, and time crafting this note. documented in this encounter Plan of Treatment Upcoming Encounters Date Type Department Care Team (Latest Contact Info) Description 05/13/2024 9:15 EDT Ancillary Procedure [facility] Cardiology - [address] [place] [address] History of aortic valve replacement; Elevated blood pressure reading 05/13/2024 11:00 EDT Office Visit [facility] Cardiology - [facility] [address] [facility] [place], [place] [id number] Jose Roy MD [address] [place] [address] Scheduled Orders Name Type Priority Associated Diagnoses Order Schedule TRANSTHORACIC ECHO (TTE) COMPLETE Echocardiography Routine History of aortic valve replacement Elevated blood pressure reading Expected: 05/07/2023, Expires: 05/07/2025 documented as of this encounter Visit Diagnoses Diagnosis History of aortic valve replacement- Primary Heart valve replaced by other means Elevated blood pressure reading Elevated blood pressure reading without diagnosis of hypertension History of aortic valve replacement Heart valve replaced by other means Elevated blood pressure reading Elevated blood pressure reading without diagnosis of hypertension documented in this encounter Care Teams Or Nurse Manager Relationship Specialty Start Date End Date Lorrie Conte MD PCP - General 10/19/17 documented as of this encounter
--- OUTSIDE RECORDS SUMMARY | 2024-05-12 17:05 | XMS_ITS | Encounter Summary ---
Author Organization [facility] Address [address] [place] [address] Care Team Providers Care City Detective Name Role Phone Lorrie Conte MD Primary Care Provider [phone] Encounter Details Date Type Department Care Team (Late st Contact Info) Description 05/03/2021 Lab Requisition [facility] Pathology & Laboratory Medicine - [facility] [address] [place] [address] Outr Resulting Lab, Provider Social History Tobacco [...] Info) Description 05/13/2024 9:15 EDT Ancillary Procedure [facility] Cardiology [address] [place] [address] History of aortic valve replacement; Elevated blood pressure reading 05/13/2024 11:00 EDT Office Visit [facility] Cardiology [address] [place] [address] Jose Stauffer MD [address] [place] [address] [address] [place] [address] documented as of this encounter Visit Diagnoses Not on filedocumented in this encounter Care Teams City Detective Relationship Specialty Start Date End Date Lorrie Conte MD PCP - General 10/19/17 documented as of this encounter
--- OUTSIDE RECORDS SUMMARY | 2024-05-12 17:05 | XMS_ITS | Encounter Summary ---
Author Organization [facility] Address [address] [place] [address] Care Team Providers Care All Source Analyst Name Role Phone Lorrie oCnte MD Primary Care Provider [phone] Encounter Details Date Type Department Care Team (Late st Contact Info) Description 09/21/2022 Specialty Pharmacy [facility] - [facility] [address] [place], [place] [address] Lovely Huber, [facility] Social History Tobacco Use Types Packs/Day [...] as of this encounter Progress Notes * Lovely Huber RPH - 09/21/2022 0920 EST [facility] Infectious Disease [facility] Medication Therapy Follow Up: Jose Fisher is a 72 y.o. male being treated with Biktarvy for HIV. I followed up with Will today over the phone to see how our specialty pharmacy services have been working for him. I completed a complete review of the patient's current medical record, including medications, allergies and immunizations. There are no pertinent drug-drug interactions at this time. Adherence: Patient has not missed any doses since last follow-up, as determined via patient self-report. Reasons for Non-Adherence: no problems identified Therapy appropriately withheld: N/A Side effects/toxicities: None reported Assessment: Therapeutic benefits achieved: Yes (HIV 1 RNA 23 (suppressed), CD4 >1000) Medication therapy appropriate: Yes Patient said [facility] services are working well for him. He had no questions or concerns about his medication. Education Provided: Patient wanted to know if he needed to sign a form for us so I reviewed the signature/return envelope process for SPR[facility] deliveries that serve as the signature to confirm that he received his medication. Follow-up planned: - Clinic appointment: ~November 2022 [facility] w/ Dr. Parker - Phone call: as needed for patient questions/concerns - Laboratory monitoring: at least annually, last in 05/2022 - Next refill due: 10/05/22 Lovely Huber, PharmD Ambulatory Pharmacist [facility] Infectious Disease 09/21/2022 documented in this encounter Plan of Treatment Upcoming Encounters Date Type Department Care Team (Latest Contact Info) Description 05/13/2024 9:15 EDT Ancillary Procedure [facility] Cardiology - [place] [address] History of aortic valve replacement; Elevated blood pressure reading 05/13/2024 11:00 EDT Office Visit [facility] Cardiology - [facility] [address] [place] [address] Jose Stauffer MD [address] [facility] [address] [place] [address] documented as of this encounter Visit Diagnoses Not on filedocumented in this encounter Care Teams All Source Analyst Relationship Specialty Start Date End Date Lorrie Conte MD PCP - General 10/19/17 documented as of this encounter
--- OUTSIDE RECORDS SUMMARY | 2024-05-12 17:05 | XMS_ITS | Encounter Summary ---
Author Organization [facility] Address [address] [place] [address] Care Team Providers Care Transit Mix Operator Name Role Phone Lorrie Conte MD Primary Care Provider [phone] Reason for Visit * Reason Comments Follow-up Encounter Details Date Type Department Care Team (Late st Contact Info) Description 12/12/2021 12:00 EDT Telemedicine [facility] Infectious Disease [address] [address] Javid Parker, DO [address] [facility] [place] [address] Asymptomatic HIV infection (HCC) (Primary Dx) Social History Tobacco Use Types [...] Progress Notes * Javid Parker, DO - 12/12/2021 1200 EDT I spent a total of 30 minutes on the date of this encounter meeting with the patient and reviewing documentation/coordinating care as described in the above note. No procedures were performed at the time of the visit. Division of Infectious Disease Follow up/Progress Note 12/09/21 15:48 TELEMEDICINE VIDEO VISIT Today's visit was provided [...] in patient???s medical or mental health care. HPI:??Mr.??Fisher??is a??70??y.o.??male??with history significant for newly diagnosed HIV??who presents with??follow up. ?HIV diagnosed in March 2019 by PCM with a positive 4th gen Ab/Ag test done as part of a viral syndrome work up??.?Initial??CD4 done in Apr was 529 at 16%, HIV VL 94,797.??Pt started on Biktarvy on 26 April??2019??with perfect adherence. ?Genotype showed no evidence of resistance.?On next set of labs 16 May??2019??(done due to AVR surgery ), VL down to 386 and CD4??616??at 17%.? Most recent labs from??Oct 2021??show VL < 20??and CD4 1045 ?? We suspect he acquired HIV infection??in??[place] [...] and was referred to CT surgery at [facility] where on 22 May 2019, pt had AVR and CABG X2. ?Perfect adherence with Biktarvy and has a great supply.?He has two daughters locally that??visit him frequently.?Patient had a partial knee replacement in Aug 2020 and saw cardiology In follow up in February 2021. Things are going so well after his aortic valve replacement that he does not need to see cardiology until 2022. He is planning on a long vacation in [place] next summer with an old family friend. Patient continues to do remarkably well, he stays busy with [employer] type things. He is currently helping his family and their sugarhouse. ?? Review of Systems: 10-point review of systems is negative except as noted in the HPI. ?? Past Medical History: BPH Acute retroviral syndrome summer 2018 ??esophageal candidiasis 2018 Tachycardia work up with holter monitor in past Thrombocytopenia: Baseline platelets range from 80-90. 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. DJD Severe??AV regurg dx 2019 Positional hypoxemia, etiology unknown ?? Past Surgical History:?? Knee injections for DJD. Aortic valve replacement [facility] May 2019 CABG x 2 2018?? Knee replacement 2019 ?? MEDICATIONS Biktarvy started 26 April 2019 ?? Allergies not on file ?? 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 Sexual:??Patient denies MSM. ??His last sexual contact prior to the one in [facility] in 2018, was in [place] around 2011. ??Patient sounds like he spent less than a week with this woman that he met in [facility]. ??He does not know anything about her history. Exercise:??Busy with yard work. Travel:??From [place]. 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 ??Only other recent travel was a trip to [facility] in January 2019, then to [place]. ??Both were vacations ? Social [...] Gets together: Not on file ? Attends pentecostalism service: Not on file ? Active member [...] seen with one of his daughters Aydee today at her physical therapy office. ?? 25 April??2019??HIV genotype no resistance genes. ?? Assessment and Plan: ?? #) HIV - Diagnosed in??March 2019, baseline CD4 count 529 at 16% and initial??HIV viral load 94,000. ??Genotype shows no resistance genes. - Prior regimens include??none - Currently on??Biktarvy started 26 April 2019.? - Oct 2021??CD4 ??1045 - HIV viral load <20. - OI prophylaxis:??NA - Compliance:??Perfect - Sexual activity:??None since [facility] January 2019 - G/C, RPR: April 2019 [...] Colonoscopy:??Screening colonoscopy 2018 tubular adenoma. - Immunizations:??flu fall??2020, Tdap 2013, shingles 2014, pneumovax 23 2016. COVID vaccine 2020, booster up-to-date. We think his Prevnar 13 and hepatitis B was taken care of by his primary care provider. ?? #)??Orthopneic dyspnea, etiology never clear, patient given CPAP machine but it does not sound likehe needs to use it anymore. ?#)??Status post aortic valve replacement 2019. ??Patient reminded he needs antibiotics around thetime of dental work and to inform his dentist of the presence of the valve. ?? It has been a pleasure seeing??Mr.??Fisher??in clinic today. ?? Javid Parker DO Pager [phone] Infectious Diseases ?? Currently employed:??No ?? Adherence [...] than once in the past 12 months):??none ?? documented in this encounter Plan of Treatment Upcoming Encounters Date Type Department Care Team (Latest Contact Info) Description 05/13/2024 9:15 EDT Ancillary Procedure [facility] Cardiology - [address] [place] [address] History of aortic valve replacement; Elevated blood pressure reading 05/13/2024 11:00 EDT Office Visit [facility] Cardiology - [facility] [address] [facility] [place] [address] Jose Stauffer MD [address] [place] [address] [address] [place] [address] documented as of this encounter Visit Diagnoses Diagnosis Asymptomatic HIV infection (HCC-CMS)- Primary Asymptomatic human immunodeficiency virus (HIV) infection status History of aortic valve replacement Heart valve replaced by other means Elevated blood pressure reading Elevated blood pressure reading without diagnosis of hypertension documented in this encounter Care Teams Transit Mix Operator Relationship Specialty Start Date End Date Lorrie Conte MD PCP - General 10/19/17 documented as of this encounter
--- OUTSIDE RECORDS SUMMARY | 2024-05-12 17:05 | XMS_ITS | Encounter Summary ---
Author Organization [facility] Address [address] [place] [address] Care Team Providers Care Machine Fancy Stitcher Name Role Phone Lorrie Conte MD Primary Care Provider [phone] Encounter Details Date Type Department Care Team (Late st Contact Info) Description 09/23/2020 Lab Requisition [facility] Pathology & Laboratory Medicine - [facility] [address] [place] [address] Outr Resulting Lab, Provider Social History Tobacco [...] Info) Description 05/13/2024 9:15 EDT Ancillary Procedure [facility] Cardiology [address] [place] [address] History of aortic valve replacement; Elevated blood pressure reading 05/13/2024 11:00 EDT Office Visit [facility]iology [address] [place] [address] Jose Stauffer MD [address] [place] [address] documented as of this encounter Procedures Procedure Name Priority Date/Time Associated Diagnosis Comments HIV 1 RNA QUANTITATION Routine 09/23/2020 9:12 EST T CELL SUBSETS Routine 09/23/2020 9:12 EST documented in this encounter Results * (ABNORMAL) HIV 1 RNA QUANTITATION (09/23/2020 9:12 EST) HIV RNA Detection, Qual Detected( A) Undetected copies/mL 09/27/2020 13:07 EST [facility] HIV 1 RNA Quant 26(H) Undetected copies/mL 09/27/2020 13:07 EST [facility] Blood VENOUS BLOOD / Unknown 09/23/2020 9:12 EST 09/23/2020 15:46 EST Narrative [facility] - 09/27/2020 13:07 EST The quantification range of this assay is 20 IU/mL to 10,000,000 IU/mL. ??Testing was performed on the ENMANUEL Ampliprep/ENMANUEL TaqMan HIV v2.0 ([employer] [facility] Provider Outr Resulting Lab CHEMISTRY & BLOOD GAS ORDERABLES Performing Organization Address [facility] Co de Phone Number [facility] [address] [place] [address] * IMMUNODEFICIENCY PANEL (09/23/2020 9:12 EST) % CD3 73 62 - 87 % 09/26/2020 13:02 EST [facility] % CD4 38 35 - 63 % 09/26/2020 13:02 EST [facility] % CD8 34 10 - 35 % 09/26/2020 13:02 EST [facility] Absolute CD4 813 329-1,427 Cells/uL 09/26/2020 13:02 [facility] Blood VENOUS BLOOD / Unknown 09/23/2020 9:12 EST 09/23/2020 15:40 EST Provider Outr Resulting Lab IMMUNOLOGY A ND SEROLOGY ORDERABLES Performing Organization Address [facility] Co de Phone Number [facility] [address] [place] [address] documented in this encounter Visit Diagnoses Not on filedocumented in this encounter Care Teams Machine Fancy Stitcher Relationship Specialty Start Date End Date Lorrie Conte MD PCP - General 10/19/17 documented as of this encounter
--- OUTSIDE RECORDS SUMMARY | 2024-05-12 17:05 | XMS_ITS | Encounter Summary ---
Author Organization [facility] Address [address] [place] [address] Care Team Providers Care Division Chief Name Role Phone Lorrie Conte MD Primary Care Provider [phone]- [phone] Encounter Details Date Type Department Care Team (Late st Contact Info) Description 03/15/2023 Specialty Pharmacy [facility] - [facility] [address] [place], [place] [id number] Lovely Huber, [facility] Social History Tobacco [...] Info) Description 05/13/2024 9:15 EDT Ancillary Procedure [facility] Cardiology [address] [place] [address] History of aortic valve replacement; Elevated blood pressure reading 05/13/2024 11:00 EDT Office Visit [facility]iology [address] [place] [address] Jose Stauffer MD [address] [place] [address] [address] [place] [address] documented as of this encounter Visit Diagnoses Not on filedocumented in this encounter Care Teams Division Chief Relationship Specialty Start Date End Date Lorrie Conte MD PCP - General 10/19/17 documented as of this encounter
--- OUTSIDE RECORDS SUMMARY | 2024-05-12 17:05 | XMS_ITS | Encounter Summary ---
Author Organization [facility] Address [address] [place] [address] Care Team Providers Care Production Miner Name Role Phone Lorrie Conte MD Primary Care Provider [phone] Encounter Details Date Type Department Care Team (Late st Contact Info) Description 02/13/2023 Specialty Pharmacy [facility] - [facility] [place] [address] [place], [place] [address] Lovely Huber, [facility] Social History Tobacco Use Types [...] Description 05/13/2024 9:15 EDT Ancillary Procedure [facility] Cardiology [address] [place] [address] History of aortic valve replacement; Elevated blood pressure reading 05/13/2024 11:00 EDT Office Visit [facility] Cardiology [address] [place] [address] Jose Stauffer MD [address] [place] [address] [address] [place] [address] documented as of this encounter Visit Diagnoses Not on filedocumented in this encounter Care Teams Production Miner Relationship Specialty Start Date End Date Lorrie Conte MD PCP - General 10/19/17 documented as of this encounter
--- OUTSIDE RECORDS SUMMARY | 2024-05-12 17:05 | XMS_ITS | Encounter Summary ---
Author Organization [facility] Address [address] [place] [address] Care Team Providers Care Product Assurance Engineer Name Role Phone Lorrie Conte MD Primary Care Provider [phone] Reason for Referral * Cardiology (Routine) - Closed Specialty Diagnoses / Procedures [facility] Cardiology Diagnoses H/O aortic valve replacement Hypoxemia Procedures TRANSTHORACIC ECHO (TTE) COMPLETE Jose Stauffer MD [address] [facility] [address] [place] [phone] [facility] Cardiology [address] [place] [address] [place] [address] Referral ID Status Reason Start Date Expiration Date Visits Re quested Visits Authorized [id number] Closed 03/11/2020 1 1 Encounter Details Date Type Department Care Team (Late st Contact Info) Description 03/11/2020 Orders Only [facility] Cardiology - [place] [address] [place] [address] Jose Staufefr MD [address] [facility] [address] [place] [phone] H/O aortic valve replacement (Primary Dx); Hypoxemia Social History Tobacco Use Types Packs/Day Years [...] Info) Description 05/13/2024 9:15 EDT Ancillary Procedure [facility] Cardiology [address] [place] [address] History of aortic valve replacement; Elevated blood pressure reading 05/13/2024 11:00 EDT Office Visit [facility] Cardiology [address] [place] [address] Jose Stauffer MD [address] [place] [address] [place] [phone] documented as of this encounter Results * TRANSTHORACIC ECHO (TTE) COMPLETE W/DOPPLER W/CF NO CONTRAST (02/22/2021 10:12 EDT) LA Atrial Length A2C 5.4 cm [facility] LA Atrial Area A4C 22.0 cm2 [facility] LA ID/bsa, A-P 1.5 cm/m2 [facility] LA ID, A-P, ES 2.9 cm [facility] Aortic valve mean velocity, S 1.6 m/s [facility] LV ejection fraction, 1-p A4C 54 % [facility] LVOT mean gradient, S 3 mmHg [facility] Aortic valve area, peak velocity 1.7 cm2 [facility] AV regurgitation pressure 1/2 time 578 ms [facility] Aortic mean gradient, S 11 mmHg [facility] AV LVOT peak gradient 6 mmHg [facility] LV e', lateral 0.12 m/s [facility] Mitral deceleration time 222 ms [facility] LV IVRT, DP 60 msec [facility] LVOT area 3.1 cm2 [facility] LVOT peak velocity, S 1.2 m/s [facility] LVOT VTI, S 25.4 cm [facility] Aortic valve peak velocity, S 2.2 m/s [facility] Aortic valve VTI, S 44.6 cm [facility] Stroke volume (SV), LVOT DP 80 ml [facility] Aortic peak gradient, S 20 mmHg [facility] Mitral peak gradient, D 2 mmHg [facility] LVOT mean velocity, S 0.8 m/s [facility] Mitral E-wave peak velocity 0.8 m/s [facility] Mitral A-wave peak velocity 1.0 m/s [facility] LV Systolic Volume Index 21.0 mL/m2 [facility] LV Diastolic Volume Index 47.0 mL/m2 [facility] AV DOI 0.55 [facility] LA Atrial Length A4C 5.6 cm [facility] LVOT ID, S 2.0 cm [facility] EF 56 % [facility] LA volume, ES, BP 72.0 ml [facility] LA volume/bsa, ES, A4C 36.0 ml/m2 [facility] LA volumes, ES, A4C 68.0 ml [facility] LA volume/bsa, ES, BP 38.0 ml/m2 [facility] LV Systolic Volume 39 mL [facility] LV Diastolic Volume 89 mL [facility] Stroke index (SV/bsa) LVOT DP 42.0 ml/m2 [facility] Aortic valve area VTI 1.8 cm2 [facility] LV e', medial 0.05 m/s [facility] AV dimensionless index (DI) 0.9 [facility] LV e', average 0.08 m/s [facility] Velocity ratio, mean, LVOT/AV 0.52 [facility] Aortic valve area 1.6 cm2 [facility] AVAI Pk Redd 0.9 cm2/m2 [facility] AR Max Redd 3 m/s [facility] Aortic Insufficiency Deceleration Time 152 cm/s2 [facility] Aortic Valve Regurgitant Pressure Gradient 36 mmHg [facility] Pulmonic valve mean velocity, S 1 cm/s [facility] Ascending aorta ID, a-p 2.8 cm [facility] LA Atrial Area A2C 22.0 cm2 [facility] LV end diastolic volume 1-p A2C 76 ml [facility] LV ejection fraction, 1-p A2C 58 % [facility] LV E/e', lateral 6.0 [facility] LV E/e', medial 6.0 [facility] LV E/e', average 6 [facility] LV end-diastolic volume, 1-p A4C 98 ml [facility] Anatomical Region Laterality Modality Ultrasound Narrative 02/22/2021 10:42 EDT ?Aortic Valve: History of bioprosthetic aortic valve replacement. The aortic leaflets were not thickened. ?Aortic Valve: AV Peak Gradient: 20mmHg. AV Mean Gradient: 11mmHg. AV Area VTI: 1.8. ?Left Ventricle: The left ventricular cavity was normal in size. ?Left Ventricle: Left ventricular systolic function was normal with an ejection fraction of 55-60%. ?Left Ventricle: Left ventricular wall motion was normal; there were no regional wall motion abnormalities. ?Right Ventricle: The right ventricular cavity was normal in size. ?Right Ventricle: Right ventricular systolic function was normal. Left Ventricle The left ventricular cavity was normal in size. Left ventricular systolic function was normal with an ejection fraction of 55-60%. Left ventricular diastolic parameters were normal for age. Left ventricular wall thickness was normal. Left ventricular wall motion was normal; there were no regional wall motion abnormalities. Right Ventricle The right ventricular cavity was normal in size. Right ventricular systolic function was normal. Right ventricular wall thickness was normal. Left Atrium Left atrial cavity was mildly dilated. Right Atrium The right atrium was normal in size. IVC/SVC The inferior vena cava was normal in size. Mitral Valve Mitral valve structure was normal. There was no significant mitral valve stenosis or regurgitation. Tricuspid Valve Tricuspid valve structure was normal. There was no tricuspid valve regurgitation. There was no tricuspid valve stenosis. Aortic Valve History of bioprosthetic aortic valve replacement. The aortic leaflets were not thickened. The gradient recorded across the prosthetic aortic valve was within the expected range. There was trace aortic valve regurgitation. AV Peak Gradient: 20mmHg. AV Mean Gradient: 11mmHg. AV Area VTI: 1.8. Pulmonic Valve Pulmonic valve structure was grossly normal. There was trace pulmonic valve regurgitation. There was no pulmonic valve stenosis. Ascending Aorta The aorta was normal in size. Pericardium There was no pericardial effusion. Pulmonic Artery Pulmonary systolic pressure was within the normal range, in the range of 25 mmHg to 30 mmHg. Study Details Study status: Routine. Transthoracic echocardiography. M-Mode, complete 2D, complete spectral Doppler, and color Doppler.The study was interpreted by [facility]. Pertinent images and digital data are archived for permanent storage and are available for subsequent review. Scanning was performed from the apical, parasternal, subcostal and suprasternal acoustic windows. Overall the study quality was adequate. Images were obtained using cardiac ultrasound machine [id number]. Jose Stauffer MD CARDIAC ECHO O RDERABLES documented in this encounter Visit Diagnoses Diagnosis H/O aortic valve replacement- Primary Heart valve replaced by other means Hypoxemia H/O aortic valve replacement Heart valve replaced by other means Hypoxemia History of aortic valve replacement Heart valve replaced by other means Elevated blood pressure reading Elevated blood pressure reading without diagnosis of hypertension documented in this encounter Care Teams Product Assurance Engineer Relationship Specialty Start Date End Date Lorrie Conte MD PCP - General 10/19/17 documented as of this encounter
--- OUTSIDE RECORDS SUMMARY | 2024-05-12 17:05 | XMS_ITS | Encounter Summary ---
Author Organization [facility] Address [address] [place] [address] Care Team Providers Care Documentation Clerk Name Role Phone Lorrie Conte MD Primary Care Provider [phone] Encounter Details Date Type Department Care Team (Late st Contact Info) Description 04/30/2020 Lab Requisition [facility] Pathology & Laboratory Medicine - [place] [address] [place] [address] Outr Resulting Lab, Provider Social History Tobacco [...] Ancillary Procedure [facility] Cardiology - [facility] [address] [place] [address] History of aortic valve replacement; Elevated blood pressure reading 05/13/2024 11:00 EDT Office Visit [facility] Cardiology - [address] [place] [address] Jose Stauffer MD [address] [place] [address] documented as of this encounter Procedures Procedure Name Priority Date/Time Associated Diagnosis Comments DO NOT ORDER STANDALONE - BROAD COVID TEST Today 04/30/2020 10:33 EDT COVID-19 TESTING Routine 04/30/2020 10:3 3 EDT documented in this encounter Results * DO NOT ORDER STANDALONE - BROAD COVID TEST (04/30/2020 10:33 EDT) COVID-19 rt-PCR Result NEGATIVE Negative 05/01/2020 16:18 EDT [facility] Comment: 2019-novel Coronavirus (2019-nCoV) not detected by the qRT-PCR assay. Consider testing for other respiratory viruses or re-collecting for 2019-nCoV testing. Note: Optimum timing for peak viral levels during infections caused by 2019-nCoV have not been determined. Collection of multiple specimens from the same patient may be necessary to detect the virus. Limitations Positive results are indicative of active infection with SARS-CoV-2 but do not rule out bacterial infection or co-infection with other viruses. The agent detected may not be the definite cause of disease. In addition, detection of viral RNA may not indicate the presence of infectious virus or that SARS-CoV-2 is the causative agent for clinical symptoms. Negative results do not preclude SARS-CoV-2 infection and should not be used as the sole basis for patient management decisions. Negative results must be combined with clinical observations, patient history, and epidemiological information. False negative results may also occur if amplification inhibitors are present in the specimen or if inadequate numbers of organisms are present in the specimen. Optimum specimen types and timing for peak viral levels during infections caused by SARS-CoV-2 have not been fully determined. Collection of multiple specimens (types and time points) from the same patient may be necessary to detect the virus. The test was validated for use with upper respiratory specimens obtained via nasopharyngeal or oropharyngeal swabs in VTM, UTM, M4, M5, M6, saline, and MTM media. The performance of this test has not been established for other specimens. Specimens collected using other FDA recommended Specimen Collection Materials listed in the FDA COVID-19 [employer] communication (December 11, 2019) are processed with the caveat that they were not all validated for use with this test and the result must be interpreted in this context. Furthermore, a false negative results may occur if a specimen is improperly collected, transported or handled. If the virus mutates in the RT-PCR target region, SARS-CoV-2 may not be detected or may be detected less predictably. Inhibitors or other types of interference may produce a false negative result. An interference study evaluating the effect of common cold medications was not performed. This test is not FDA-cleared but its performance characteristics were established by our CLIA-certified, CAP-accredited, high complexity laboratory in accordance with CLIA regulations, [employer] (CAP) guidelines (Dec 04, 2019), and FDA guidance (Nov 15, 2019). This test is only for use under the Food and Drug Administration's Emergency Use Authorization. Swab ENTIRE NASOPHARYNX / Unknown 04/30/2020 10:33 EDT 04/30/2020 15:55 EDT Provider Outr Resulting Lab MICROBIOLOGY - GENERAL ORDERABLES [facility] [place], [place] * COVID-19 TESTING (04/30/2020 10:33 EDT) Pathologist [facility] COVID-19 rt-PCR Result NEGATIVE Negative 05/01/2020 17:23 EDT [facility] Comment: 2019-novel Coronavirus (2019-nCoV) not detected by the qRT-PCR assay. Consider testing for other respiratory viruses or re-collecting for 2019-nCoV testing. Note: Optimum timing for peak viral levels during infections caused by 2019-nCoV have not been determined. Collection of multiple specimens from the same patient may be necessary to detect the virus. Limitations Positive results are indicative of active infection with SARS-CoV-2 but do not rule out bacterial infection or co-infection with other viruses. The agent detected may not be the definite cause of disease. In addition, detection of viral RNA may not indicate the presence of infectious virus or that SARS-CoV-2 is the causative agent for clinical symptoms. Negative results do not preclude SARS-CoV-2 infection and should not be used as the sole basis for patient management decisions. Negative results must be combined with clinical observations, patient history, and epidemiological information. False negative results may also occur if amplification inhibitors are present in the specimen or if inadequate numbers of organisms are present in the specimen. Optimum specimen types and timing for peak viral levels during infections caused by SARS-CoV-2 have not been fully determined. Collection of multiple specimens (types and time points) from the same patient may be necessary to detect the virus. The test was validated for use with upper respiratory specimens obtained via nasopharyngeal or oropharyngeal swabs in VTM, UTM, M4, M5, M6, saline, and MTM media. The performance of this test has not been established for other specimens. Specimens collected using other FDA recommended Specimen Collection Materials listed in the FDA COVID-19 [employer] communication (December 11, 2019) are processed with the caveat that they were not all validated for use with this test and the result must be interpreted in this context. Furthermore, a false negative results may occur if a specimen is improperly collected, transported or handled. If the virus mutates in the RT-PCR target region, SARS-CoV-2 may not be detected or may be detected less predictably. Inhibitors or other types of interference may produce a false negative result. An interference study evaluating the effect of common cold medications was not performed. This test is not FDA-cleared but its performance characteristics were established by our CLIA-certified, CAP-accredited, high complexity laboratory in accordance with CLIA regulations, [employer] (CAP) guidelines (Dec 04, 2019), and FDA guidance (Nov 15, 2019). This test is only for use under the Food and Drug Administration's Emergency Use Authorization. Performing Lab [facility] 05/01/2020 17:23 EDT [facility] Swab 04/30/2020 10:3 3 EDT 04/30/2020 15:55 EDT Provider Outr Resulting Lab MICROBIOLOGY - GENERAL ORDERABLES [facility] [address] [place], [place] [id number] [place] [address] LABORATORY [place], [place] documented in this encounter Visit Diagnoses Not on filedocumented in this encounter Care Teams Documentation Clerk Relationship Specialty Start Date End Date Lorrie Conte MD PCP - General 10/19/17 documented as of this encounter
--- OUTSIDE RECORDS SUMMARY | 2024-05-12 17:05 | XMS_ITS | Encounter Summary ---
Author Organization [facility] Address [address] [place] [address] Care Team Providers Care Ppap Coordinator Name Role Phone Lorrie Conte MD Primary Care Provider +1 [phone] Reason for Visit * Reason Comments Follow-up H/O prosthetic aorti c valve replacement. Encounter Details Date Type Department Care Team (Late st Contact Info) Description 02/22/2021 10:30 EDT Office Visit [facility] Cardiology - [address] [place] [address] Jose Roy MD [address] [place] [address] [address] [place] [address] H/O aortic valve replacement (Primary Dx); Coronary artery disease involving [place] coronary artery of [place] heart without angina pectoris Social History Tobacco Use Types Packs/Day Years [...] Sign Reading Time Taken Comments Blood Pressure 118/64 02/22/2021 1015 EDT Pulse 76 02/22/2021 1015 EDT Temperature - - Respiratory Rate - - Oxygen Saturation 98% 02/22/2021 1015 EDT Inhaled Oxygen Concentration - - Weight 86.2 kg (190 lb) 02/22/2021 1015 EDT Height - - Body Mass Index 32.6 02/17/2020 0839 EDT documented in this encounter [...] Progress Notes * Jose Roy MD - 02/22/2021 1030 EDT Images from the original note were not included. Date: 02/22/2021 Follow-up evaluation Type of visit: In-person Primary diagnosis: Aortic valve regurgitation s/p aortic valve replacement and CAD s/p CABG (05/22/20- details below). Subjective: Mr. Fisher feels well overall. He had a partial left knee (medial) replacement in August. His knee feels much better. He is gardening and doing other lawn work without limitation. He has some dyspnea when ascending a hill, but otherwise has none. He is using BiPAP at night. He denied chest pain, t achypalpitations, PND, orthopnea, syncope, and near-syncope. He has occasional mild lower extremityedema. COVID: he has been vaccinated. Cardiovascular history:??the following is cut and pasted from Dr. Estevez's operative note (05/22/20). PROCEDURE: ??On-pump aortic valve replacement (large Perceval valve), coronary artery bypass x2 (right greater saphenous vein to obtuse marginal and posterior descending coronary arteries), endoscopic right greater saphenous vein harvest. Hypoxemia: with regards to his positional (supine) hypoxemia, ?Dequan feels that he has benefited from BiPAP. [...] Objective: 1. Medications: reviewed and recorded in Epic. Cardiovascular medications: Atorvastatin 20 mg daily. Aspirin 81 mg daily. 2. Allergies: NKDA. 3. Physical examination: Comfortable. Vitals: blood pressure 118/64; heart rate 76 (regular); oxygen saturation 98%; weight 190 lbs; height 66 inches; BMI 32.6. HEENT: anicteric sclera, normal conjunctiva, normal mucous [...] rub. Abdomen: obese; soft and non-tender; no hepatosplenomegaly. Extremities: no clubbing, cyanosis, or edema. 4. Diagnostic testing: - Electrocardiogram (05/25/2019): sinus rhythm with a LBBB. - Echocardiogram (today): I reviewed the entire study. The rhythm was sinus throughout. The following has been cut and pasted from the Impressions section of the report. Assessment and plan: Jose Fisher is a 70-year-old gentleman status post surgical aortic valve replacement for severe aortic regurgitation. At the time of that procedure, he also had two-vessel coronary artery bypass grafting. From the standpoint of his heart, Mr. Fisher continues to do quite well. I was very pleasedwith the results of his echocardiogram today. His prosthetic aortic valve is functioning well and [...] extremely well at this point with BiPAP. If I have one concern, it is his weight gain. Mr. Fisher will have to watch this closely moving forward. I plan to see Mr. Fisher again in 2 years. I am not planning on an echocardiogram at that evaluation unless history and physical examination dictate otherwise. I will happily see him sooner if needed. JOSE ROY MD Attending Hvac Service Technician [facility] I spent a total of 40 minutes on the date of this encounter evaluating Jose Fisher. This included review of old/previous records, thorough review of today's echocardiogram, history and physical examination, discussion // counseling related to his cardiac issues including his valve replacement and bypass, and time crafting this note. documented in this encounter Plan of Treatment Upcoming Encounters Date Type Department Care Team (Latest Contact Info) Description 05/13/2024 9:15 EDT Ancillary Procedure [facility] Cardiology - [address] [place] [id number] History of aortic valve replacement; Elevated blood pressure reading 05/13/2024 11:00 EDT Office Visit [facility] Cardiology - [address] [place], [place] [id number] Jose Roy MD [address] [facility] [address] [place] [address] documented as of this encounter Visit Diagnoses Diagnosis H/O aortic valve replacement- Primary Heart valve replaced by other means Coronary artery disease involving [place] coronary artery of [place] heart without angina pectoris History of aortic valve replacement Heart valve replaced by other means Elevated blood pressure reading Elevated blood pressure reading without diagnosis of hypertension documented in this encounter Discontinued Medications Medication Sig Discontinue Reason Start Date End Da te fluconazole (DIFLUCAN) 100 mg tablet Take 100 mg by mouth every 48 hours. 02/22/2021 documented as of this encounter Historical Medications * This list may reflect changes made after this encounter. Medication Sig Dispensed Refills Start Date End Date UNKNOWN TO PATIENT Eye drops, type unknown 03/21/2023 added in this encounter Care Teams Ppap Coordinator Relationship Specialty Start Date End Date Lorrie Conte MD PCP - General 10/19/17 documented as of this encounter
--- OUTSIDE RECORDS SUMMARY | 2024-05-12 17:05 | XMS_ITS | Encounter Summary ---
Author Organization [facility] Address [address] [place] [address] Care Team Providers Care Humanities Division Chair Name Role Phone Lorrie Conte MD Primary Care Provider [phone] [phone] Encounter Details Date Type Department Care Team (Late st Contact Info) Description 11/02/2022 Lab Requisition [facility] Pathology & Laboratory Medicine - [facility] [address] [place] [address] Outr Resulting Lab, Provider Social History Tobacco [...] [facility] - [address] [place] [address] History of aortic valve replacement; Elevated blood pressure reading 05/13/2024 11:00 EDT Office Visit [facility] Cardiology - [address] [place] [address] Jose Stauffer MD [address] [facility] [address] [place] [address] documented as of this encounter Procedures Procedure Name Priority Date/Time Associated Diagnosis Comments PSA TOTAL, DIAGNOSTIC Routine 11/01/2022 15:16 EST documented in this encounter Results * PSA TOTAL, DIAGNOSTIC (11/01/2022 15:16 EST) PSA 2.3 <=6.5 ng/mL 11/02/2022 17:47 EST [facility] Blood VENOUS BLOOD / Unknown 11/01/2022 15:16 EST 11/02/2022 16:51 EST Narrative [facility] - 11/02/2022 17:47 EST NOTE: Serum PSA concentration should not be interpreted as absolute evidence for the presence or absence of malignant disease. Assayed on Siemens ADVIA Centaur XPT using chemiluminescent technology.??Values obtained by using different assay methods cannot be used interchangeably. Provider Outr Resulting Lab CHEMISTRY & BLOOD GAS ORDERABLES [facility] [address] [place] [address] documented in this encounter Visit Diagnoses Not on filedocumented in this encounter Care Teams Humanities Division Chair Relationship Specialty Start Date End Date Lorrie Conte MD PCP - General 10/19/17 documented as of this encounter
--- OUTSIDE RECORDS SUMMARY | 2024-05-12 17:05 | XMS_ITS | Encounter Summary ---
Author Organization [facility] Address [address] [place] [address] Care Team Providers Care Business Mgr Name Role Phone Lorrie Conte MD Primary Care Provider [phone]- [phone] Encounter Details Date Type Department Care Team (Late st Contact Info) Description 10/06/2022 Specialty Pharmacy [facility] Ambulatory Pharmacy - Main [place] [address] [place], [place] [address] Lovely Huber, [facility] Social History Tobacco Use Types [...] Info) Description 05/13/2024 9:15 EDT Ancillary Procedure [facility] Cardiology [address] [place] [address] History of aortic valve replacement; Elevated blood pressure reading 05/13/2024 11:00 EDT Office Visit [facility] Cardiology [address] [place] [address] Jose Stauffer MD [address] [place] [address] [address] [place] [address] documented as of this encounter Visit Diagnoses Not on filedocumented in this encounter Care Teams Business Mgr Relationship Specialty Start Date End Date Lorrie Conte MD PCP - General 10/19/17 documented as of this encounter
--- OUTSIDE RECORDS SUMMARY | 2024-05-12 17:05 | XMS_ITS | Encounter Summary ---
Author Organization [facility] Address [address] [place] [address] Care Team Providers Care Manager Progressive Care Name Role Phone Lorrie Conte MD Primary Care Provider [phone] [phone] Reason for Visit * Reason Comments Medications Refill Encounter Details Date Type Department Care Team (Late st Contact Info) Description 08/17/2022 Refill [facility] Infectious Disease [address] [address] Javid Parker, DO [address] [facility], [address] [place] [address] Medications Refill Social History Tobacco [...] TAKE ONE TABLET BY MOUTH ONCE DAILY 90 Tablet 1 08/17/2022 03/14/2023 documented in this encounter Plan of Treatment Upcoming Encounters Date Type Department Care Team (Latest Contact Info) Description 05/13/2024 9:15 EDT Ancillary Procedure [facility] Cardiology - [address] [place], [place] [id number] History of aortic valve replacement; Elevated blood pressure reading 05/13/2024 11:00 EDT Office Visit [facility] Cardiology - [address] [place] [address] Jose Stauffer MD [address] [place] [address] [address] [place] [address] documented as of this encounter Visit Diagnoses Not on filedocumented in this encounter Discontinued Medications Medication Sig Discontinue Reason Start Date End Da te BIKTARVY 50-200-25 mg per tablet TAKE ONE TABLET BY MOUTH ONCE DAILY 09/27/2021 08/17/2022 documented as of this encounter Care Teams Manager Progressive Care Relationship Specialty Start Date End Date Lorrie Conte MD PCP - General 10/19/17 documented as of this encounter
--- OUTSIDE RECORDS SUMMARY | 2024-05-12 17:05 | XMS_ITS | Encounter Summary ---
Author Organization [facility] Address [address] [place] [address] Care Team Providers Care Naturalist Name Role Phone Lorrie Conte MD Primary Care Provider [phone]- [phone] Encounter Details Date Type Department Care Team (Late st Contact Info) Description 01/10/2023 Specialty Pharmacy [facility] Ambulatory Pharmacy - Main [place] [address] [place], [place] [address] Lovely Huber, [facility] Social History Tobacco Use Types Packs/Day [...] Info) Description 05/13/2024 9:15 EDT Ancillary Procedure [facility] Cardiology [address] [place] [address] History of aortic valve replacement; Elevated blood pressure reading 05/13/2024 11:00 EDT Office Visit [facility] Cardiology [address] [place] [address] Jose Stauffer MD [address] [place] [address] [address] [place] [address] documented as of this encounter Visit Diagnoses Not on filedocumented in this encounter Care Teams Naturalist Relationship Specialty Start Date End Date Lorrie Conte MD PCP - General 10/19/17 documented as of this encounter
--- OUTSIDE RECORDS SUMMARY | 2024-05-12 17:05 | XMS_ITS | Encounter Summary ---
Author Organization [facility] Address [address] [place] [address] Care Team Providers Care Laborer [place] Name Role Phone Lorrie Conte MD Primary Care Provider +1- [phone] Encounter Details Date Type Department Care Team (Late st Contact Info) Description 08/11/2022 Specialty Pharmacy [facility] Ambulatory Pharmacy - [facility] [address] [place], [place] [address] Lovely Huber, [facility] Social History Tobacco Use Types Packs/Day [...] Progress Notes * Lovely Huber RPH - 08/11/2022 1317 EST Spoke with Bill over the phone and enrolled him in [facility] services for Biktarvy. He will need a new RX next month so I will set a reminder to send this as he was seen by Dr. Parker and had labs in May 2022. Follow-up planned for ~11/2022. Lovely Huber, PharmD Ambulatory Pharmacist [facility] Infectious Disease 08/11/2022 * Mary Ayon - 08/11/2022 1317 EST [facility] Specialty Pharmacy Delivery Information Hours: Sunday-Sunday 8:30am - 5:00pm *Pharmacist available translational specialist 09/04 Delivery Service: [employer] Delivery Window: None Specified Date of Delivery: 08/17/22 Tracking # : [id number] documented in this encounter Plan of Treatment Upcoming Encounters Date Type Department Care Team (Latest Contact Info) Description 05/13/2024 9:15 EDT Ancillary Procedure [facility] Cardiology - [facility] [address] [address] History of aortic valve replacement; Elevated blood pressure reading 05/13/2024 11:00 EDT Office Visit [facility] Cardiology - [facility] [place] [address] Jose Stauffer MD [address] [place] [address] documented as of this encounter Visit Diagnoses Not on filedocumented in this encounter Care Teams Laborer [place] House Relationship Specialty Start Date End Date Lorrie Conte MD PCP - General 10/19/17 documented as of this encounter
--- OUTSIDE RECORDS SUMMARY | 2024-05-12 17:05 | XMS_ITS | Encounter Summary ---
Author Organization [facility] Address [address] [place] [address] Care Team Providers Care Claims Analyst Name Role Phone Lorrie Conte MD Primary Care Provider +1 [phone] Reason for Visit * Reason Comments Follow-up Encounter Details Date Type Department Care Team (Late st Contact Info) Description 04/12/2020 11:00 EDT Telemedicine [facility] Infectious Disease [address] [phone] Javid Parker, DO [address] [facility], [address] [place] [address] Asymptomatic HIV infection (HCC-CMS) (Primary [...] Progress Notes * Javid Parker, DO - 04/12/2020 1100 EDT Division of Infectious Disease Follow up/Progress Note 04/12/20 13:12 TELEMEDICINE VIDEO VISIT Today's visit was provided [...] in patient???s medical or mental health care. ?? Chief Complaint: HIV follow-up care ?? HPI:??Mr.??Fisher??is a 69 y.o.??male??with history significant for newly diagnosed HIV??who presents with??follow up. ?HIV diagnosed in March 2019 by PCM with a positive 4th gen Ab/Ag test done aspart of a viral syndrome work up??.?Initial??CD4 done in Apr was 529 at 16%, HIV VL 94,797. ??Pt started on Biktarvy on 26 April with perfect adherence. ?Genotype showed no evidence of resistance.?On next set of labs 16 May (done due to AVR surgery ), VL down to 386 and CD4??616??at 17%. ?? Most recent labs from Sep 2019 show VL down to 38 and CD4 726 which is very encouraging. ?? We suspect he acquired HIV infection??in??[place] [...] regurg and was referred to CT surgeryat [facility] where on May, pt had AVR and CABG X2. ??Pt d/c home but SOB/FOSTER continued and pt seen bypulmonary who has dx pt with some degree of diaphragmatic dysfunction. No fevers, chills, night sweats, nausea, vomiting or diarrhea. ?? Perfect adherence with Biktarvy. ? He has two daughters locally that visit him frequently. ? Review of Systems: 10-point review of systems is negative except as noted in the HPI. ?? Past Medical History: BPH Acute retroviral syndrome summer 2018 ??esophageal candidiasis 2019 Tachycardia work up with holter monitor in past Thrombocytopenia: Baseline platelets range from 80-90. 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 Past Surgical History:?? Knee injections for DJD. Aortic valve replacement [facility] May 2019 CABG x 2 2018? MEDICATIONS Biktarvy started 26 April 2019 ?? Allergies not on file ?? 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 Sexual:??Patient denies MSM. ??His last sexual contact prior to the one in [place] in 2019, was in [place] around 2011. ??Patient sounds like he spent less than a week [facility] this [facility] ??He does not know anything about her history. Exercise:??Busy with yard work. Travel:??From [place]. 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 ??Only other recent travel was a trip to [facility] in January 2019, then to [place] February 2019. ??Both were vacations ? Social [...] Gets together: Not on file ? Attends moravian service: Not on file ? Active member [...] infection or immunocompromised state. ?? Physical Exam AAOx3 ?? 25 April 2019 HIV genotype no resistance genes. ?? Assessment and Plan: ?? #) HIV - Diagnosed in??March 2019, baseline CD4 count 529 at 16% and initial??HIV viral load 94,000. ??Genotype shows no resistance genes. - Prior regimens include??none - Currently on??Biktarvy started 26 April 2019.?Sep 2019 labs show CD4 726 and VL 38. Current labs pending draw this week. - OI prophylaxis:??NA - Compliance:??Perfect - Sexual activity:??None since [facility] January 2019 - G/C, RPR: April 2019 [...] IgM negative.? - Follow up with me in 6 months? #) Health maintenance - Cholesterol:??Per PCM - Diabetes:??Screening per PCM - Colonoscopy:??Screening colonoscopy 2018 tubular adenoma. - Immunizations:??flu fall 2018, Tdap 2012, shingles 2013, pneumovax 2016. Needs prevnar 13 at next Face to face visit with HBV and meningitis but Loulou will check with PCM about vaccines he may have already had. ?? #)??Orthopneic dyspnea, pt still being worked up by pulm and pt wearing what sounds like CPAP mask at night which is helping for some degree of diaphragmatic dysfuction. ? It has been a pleasure seeing??Mr.??Fisher??in clinic today. ?? Javid Parker DO Pager [phone] Infectious Diseases ?? Currently employed: No Adherence counseling: Yes Linguistic services: No Patient with HIV (-) partner: No HIV (-) partner tested within the last 12 months: Not applicable Partner notification discussed: Not applicable Social History Social History Tobacco Use Smoking Status Former Smoker ??? [...] 12 months): none documented in this encounter Plan of Treatment Upcoming Encounters Date Type Department Care Team (Latest Contact Info) Description 05/13/2024 9:15 EDT Ancillary Procedure [facility] Cardiology - [address] [place] [address] History of aortic valve replacement; Elevated blood pressure reading 05/13/2024 11:00 EDT Office Visit [facility] Cardiology [address] [place] [address] Jose Stauffer MD [address] [place] [address] [address] [place] [address] documented as of this encounter Visit Diagnoses Diagnosis Asymptomatic HIV infection (HCC-[facility])- Primary Asymptomatic human immunodeficiency virus (HIV) infection status History of aortic valve replacement Heart valve replaced by other means Elevated blood pressure reading Elevated blood pressure reading without diagnosis of hypertension documented in this encounter Care Teams Claims Analyst Relationship Specialty Start Date End Date Lorrie Conte MD PCP - General 10/19/17 documented as of this encounter
--- OUTSIDE RECORDS SUMMARY | 2024-05-12 17:05 | XMS_ITS | Encounter Summary ---
Author Organization [facility] Address [address] [place] [address] Care Team Providers Care Drapery Inspector Name Role Phone Lorrie Conte MD Primary Care Provider +1 [phone] Encounter Details Date Type Department Care Team (Late st Contact Info) Description 06/10/2021 Lab Requisition [facility] Pathology & Laboratory Medicine - [facility] [address] [place] [address] Outr Resulting Lab, Provider Social History Tobacco [...] Info) Description 05/13/2024 9:15 EDT Ancillary Procedure [facility] Cardiology [address] [place] [address] History of aortic valve replacement; Elevated blood pressure reading 05/13/2024 11:00 EDT Office Visit [facility] Cardiology [address] [place] [address] Jose Stauffer MD [address] [place] [address] documented as of this encounter Procedures Procedure Name Priority Date/Time Associated Diagnosis Comments HIV 1 RNA QUANTITATION Routine 06/10/2021 14:25 EDT documented in this encounter Results * (ABNORMAL) HIV 1 RNA QUANTITATION (06/10/2021 14:25 EDT) Pathologist [facility] HIV RNA Detection, Qual Detected( A) Undetected copies/mL 06/13/2021 14:[address] [facility] HIV 1 RNA Quant 76(H) Undetected copies/mL 06/13/2021 14:[address] [facility] Blood VENOUS BLOOD / Unknown 06/10/2021 14:25 EDT 06/10/2021 21:[address] [facility] - 06/13/2021 14:38 EDT New platform in use 04/11/2021 The quantification range of this assay is 20 IU/mL to 10,000,000 IU/mL. ??Testing was performed using the Avis HIV test ([employer] with the avis [employer] System. Provider Outr Resulting Lab CHEMISTRY & BLOOD GAS ORDERABLES [facility] [address] [place] [address] documented in this encounter Visit Diagnoses Not on filedocumented in this encounter Care Teams Drapery Inspector Relationship Specialty Start Date End Date Lorrie Conte MD PCP - General 10/19/17 documented as of this encounter
--- OUTSIDE RECORDS SUMMARY | 2024-05-12 17:05 | XMS_ITS | Encounter Summary ---
Author Organization [facility] Address [address] [place] [address] Care Team Providers Care Cook Chef Name Role Phone Lorrie Conte MD Primary Care Provider +1 [phone] Encounter Details Date Type Department Care Team (Late st Contact Info) Description 11/02/2022 Lab Requisition [facility] Pathology & Laboratory Medicine - [facility] [address] [place] [address] Outr Resulting Lab, Provider Social History Tobacco [...] Info) Description 05/13/2024 9:15 EDT Ancillary Procedure [facility] Cardiology [address] [place] [address] History of aortic valve replacement; Elevated blood pressure reading 05/13/2024 11:00 EDT Office Visit [facility] Cardiology [address] [place] [address] Jose Stauffer MD [address] [place] [address] documented as of this encounter Procedures Procedure Name Priority Date/Time Associated Diagnosis Comments T CELL SUBSETS Routine 11/01/2022 15:16 EST HIV 1 RNA QUANTITATION Routine 11/01/2022 15:16 EST documented in this encounter Results * (ABNORMAL) HIV 1 RNA QUANTITATION (11/01/2022 15:16 EST) HIV RNA Detection, Qual Detected( A) Undetected copies/mL 11/06/2022 13:59 EST [facility] HIV 1 RNA Quant <20(H) Undetected copies/mL 11/06/2022 13:59 EST [facility] Comment:HIV-1 RNA level is < 20 copies/mL. This assay cannot accurately quantify HIV-1RNA below this level. Blood VENOUS BLOOD / Unknown 11/01/2022 15:16 EST 11/02/2022 16:52 EST Narrative [facility] - 11/06/2022 13:59 EST The quantification range of this assay is 20 IU/mL to 10,000,000 IU/mL. ??Testing was performed using the Avis HIV test ([employer] with the avis [id number] System. Provider Outr Resulting Lab CHEMISTRY & BLOOD GAS ORDERABLES Performing Organization Address [facility] Co de Phone Number [facility] [address] [place] [address] * T CELL SUBSETS (11/01/2022 15:16 EST) % CD3 72 56 - 84 % 11/03/2022 16:34 [facility] % CD4 44 31 - 64 % 11/03/2022 16:34 [facility] % CD8 28 9 - 39 % 11/03/2022 16:34 [facility] Absolute CD3 1,560 840 - 2,669 Cells/uL 11/03/2022 16:34 [facility] Absolute CD4 945 488 - 1,734 Cells/uL 11/03/2022 16:34 [facility] Absolute CD8 612 154 - 1,097 Cells/uL 11/03/2022 16:34 [facility] 4/8 Ratio 1.55 >=0.90 11/03/2022 16:34 [facility] Blood VENOUS BLOOD / Unknown 11/01/2022 15:16 EST 11/02/2022 16:51 EST Provider Outr Resulting Lab IMMUNOLOGY A ND SEROLOGY ORDERABLES Performing Organization Address [facility] [address] [facility] de Phone Number [facility] [address] [place] [address] documented in this encounter Visit Diagnoses Not on filedocumented in this encounter Care Teams Cook Chef Relationship Specialty Start Date End Date Lorrie Conte MD PCP - General 10/19/17 documented as of this encounter
--- OUTSIDE RECORDS SUMMARY | 2024-05-12 17:05 | XMS_ITS | Encounter Summary ---
Author Organization [facility] Address [address] [place] [address] Care Team Providers Care Small Battery Plate Assembler Name Role Phone Lorrie Conte MD Primary Care Provider [phone]- [phone] Encounter Details Date Type Department Care Team (Late st Contact Info) Description 12/27/2022 Lab Requisition [facility] Pathology & Laboratory Medicine - [facility] [address] [place] [address] Wolfgang Soto MD [address] [place] [address] Encounter for other general examination Social History Tobacco Use Types Packs/Day Years [...] Info) Description 05/13/2024 9:15 EDT Ancillary Procedure [facility] Cardiology - [address] [place] [address] History of aortic valve replacement; Elevated blood pressure reading 05/13/2024 11:00 EDT Office Visit [facility] Cardiology - [address] [place] [address] Jose Stauffer MD [address] [place] [address] [address] [place] [address] documented as of this encounter Procedures Procedure Name Priority Date/Time Associated Diagnosis Comments SURGICAL PATHOLOGY Today 12/27/2022 11 :54 EDT Encounter for other general examination documented in this encounter Results * SURGICAL PATHOLOGY (12/27/2022 11:54 EDT) Note to Patient The following pathology results have been interpreted by your pathologist and may be available to you before your health provider has had the opportunity to review them. Please allow time for your provider to receive these results and explore management options, if applicable. 01/01/2023 14:01 EDT [facility] Final Diagnosis A. 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 01/01/2023 14:01 EDT [facility] Diagnosis Comment Deeper sections of the specimen has been reviewed 01/01/2023 14:01 [facility] Attestation By the signature below, the attending physician certifies that they have 1) personally conducted a gross and/or microscopic examination of the described specimen(s), and/or personally interpreted the results of laboratory testing of the described specimen(s), and 2) personally rendered or confirmed the above diagnosis. 01/01/2023 14:01 [facility] at 1401 Clinical History Bullous keratopathy left eye 01/01/2023 14:01 EDT [facility] Gross Description A. Received in formalin labelled with proper patient identification (initials T, W) and Descemets membrane left eye is a 0.3 x 0.3 x 0.2 cm irregular fragment of translucent soft tissue. The specimen is submitted intact in A1. GLORIA PELAYO(ASCP) 12/28/2022 8:13 01/01/2023 14:01 [facility] Performing Lab [facility] 01/01/2023 14:01 [facility] Scanned Images 01/01/2023 14:01 [facility] Tissue ENDOTHELIAL KERATOPLASTY / Unknown 12/27/2022 11:54 EDT 12/27/2022 16:36 EDT Wolfgang Soto MD PATHOLOGY ORDERABLES [facility] [address] [place] [address] documented in this encounter Visit Diagnoses Diagnosis Encounter for other general examination History of aortic valve replacement Heart valve replaced by other means Elevated blood pressure reading Elevated blood pressure reading without diagnosis of hypertension documented in this encounter Care Teams Small Battery Plate Assembler Relationship Specialty Start Date End Date Lorrie Conte MD PCP - General 10/19/17 documented as of this encounter
--- OUTSIDE RECORDS SUMMARY | 2024-05-12 17:05 | XMS_ITS | Encounter Summary ---
Author Organization [facility] Address [address] [place] [address] Care Team Providers Care Dna Analyst Name Role Phone Lorrie Conte MD Primary Care Provider +1 [phone] Encounter Details Date Type Department Care Team (Late st Contact Info) Description 04/13/2020 Lab Requisition [facility] Pathology & Laboratory Medicine - [facility] [address] [place] [address] Outr Resulting Lab, Provider Social History Tobacco [...] Ancillary Procedure [facility] Cardiology [facility] [address] [facility] [place] [address] History of aortic valve replacement; Elevated blood pressure reading 05/13/2024 11:00 EDT Office Visit [facility] Cardiology - [facility] [address] [place] [address] Jose Stauffer MD [address] [place] [address] documented as of this encounter Procedures Procedure Name Priority Date/Time Associated Diagnosis Comments T CELL SUBSETS Routine 04/13/2020 11:15 EDT documented in this encounter Results * (ABNORMAL) IMMUNODEFICIENCY PANEL (04/13/2020 11:15 EDT) % CD3 69 62 - 87 % 04/14/2020 17:28 EDT [facility] % CD4 30(L) 35 - 63 % 04/14/2020 17:28 EDT [facility] % CD8 39(H) 10 - 35 % 04/14/2020 17:28 EDT [facility] Absolute CD4 883 329-1,427 Cells/uL 04/14/2020 17:28 T [facility] Blood VENOUS BLOOD / Unknown 04/13/2020 11:15 EDT 04/13/2020 16:50 EDT Provider Outr Resulting Lab IMMUNOLOGY A ND SEROLOGY ORDERABLES [facility] [address] [place] [address] documented in this encounter Visit Diagnoses Not on filedocumented in this encounter Care Teams Dna Analyst Relationship Specialty Start Date End Date Lorrie Conte MD PCP - General 10/19/17 documented as of this encounter
--- OUTSIDE RECORDS SUMMARY | 2024-05-12 17:05 | XMS_ITS | Encounter Summary ---
Author Organization [facility] Address [address] [place] [address] Care Team Providers Care Hem Inspector Name Role Phone Lorrie Conte MD Primary Care Provider +1 [phone] Reason for Visit * Reason Comments Follow-up Encounter Details Date Type Department Care Team (Late st Contact Info) Description 06/12/2022 11:00 EDT Telemedicine [facility] Infectious Disease [address] [address] Javid Parker, DO [address] [facility], [address] [place] [address] Asymptomatic HIV infection (HCC) (Primary [...] Progress Notes * Javid Parker, DO - 06/12/2022 1100 EDT I spent a total of 30 minutes on the date of this encounter meeting with the patient and reviewing documentation/coordinating care as described in the above note. No procedures were performed at the time of the visit. Division of Infectious Disease Follow up/Progress Note 06/12/22 9:03 TELEMEDICINE VIDEO VISIT Today's visit was provided [...] patient???s medical or mental health care. HPI??Mr.??Fisher??is a??71??y.o.??male??with history significant for newly diagnosed HIV??who presents with??follow up. ?HIV diagnosed in March 2019 by PCM with a positive 4th gen Ab/Ag test done as part of a viral syndrome work up??.?Initial??CD4 done in Apr was 529 at 16%, HIV VL 94,797. ??Pt started on Biktarvy on 26 April??2019??with perfect adherence. ?Genotype showed no evidenceof resistance.?On next set of labs 16 May??2020??(done due to AVR surgery ), VL down to 386and CD4??616??at 17%.? Most recent labs from??May 2022??show VL 23??and CD4 985 ?? We suspect he acquired HIV infection??in??[place] [...] and was referred to CT surgery at [facility] where on May??2019, pt had AVR and CABG X2. ?Perfect adherence with Biktarvy??and has a great supply.?He has two daughters locally that??visit him frequently.?Patient had a partial knee replacement??in Aug 2020 and saw cardiology ??In follow up in February 2021. ??Things are going so well after his aortic valve replacement that he does not need to see cardiology until 2022. ??He had a great trip with an old friend to [place] for about 7 weeks the summer which she really enjoyed. ?? Patient continues to do remarkably well, he stays busy with [employer] type things. 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 ?? Past Medical History: BPH Acute retroviral syndrome summer 2018 ??esophageal candidiasis 2018 Tachycardia work up with holter monitor in past Thrombocytopenia: Baseline platelets range from 80-90. 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 Bilateral chronic uveitis: Seen at [facility]. 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 Past Surgical History:?? Knee injections for DJD. Aortic valve replacement [facility] May 2019 CABG x 2 2018?? Knee replacement 2019 ?? MEDICATIONS Biktarvy started 26 April 2019 ?? Allergies not on file ?? 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 Sexual:??Patient denies MSM. ??His last sexual contact prior to the one in [facility] in 2018, was in [place] around 2011. ??Patient sounds like he spent less than a week with this woman that he met in [facility]. ??He does not know anything about her history. Exercise:??Busy with yard work. Travel:??From [place]. 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 ??Only other recent travel was a trip to [facility] in January 2019, then to [place]. ??Both were vacations ? Social [...] Gets together: Not on file ? Attends jewish service: Not on file ? Active member [...] ?? Physical Exam AAOx3, very pleasant, Wt 196 lbs 136/60 ?? 25 April??2019??HIV genotype no resistance genes. ?? Assessment and Plan: ?? #) HIV - Diagnosed in??March 2019, baseline CD4 count 529 at 16% and initial??HIV viral load 94,000. ??Genotype shows no resistance genes. - Prior regimens include??none - Currently on??Biktarvy started 26 April 2019.? - May 2022??CD4 985 - HIV viral load May 2022.?? - OI prophylaxis:??NA - Compliance:??Perfect - Sexual [...] colonoscopy 2018 tubular adenoma. - Immunizations:??flu shot today, Tdap 2012, shingles 2013, pneumovax 23 2016.?COVID vaccine 2020, booster up-to-date. We think his Prevnar 13 and hepatitis B was taken care of by his primary careprovider. ?? #)??Orthopneic dyspnea,??etiology never clear, patient given CPAP machine but it does not sound like he needs to use it anymore. ?#)??Status post aortic valve replacement??2019. ??Patient reminded he needs antibiotics around the time of dental work and to inform his dentist of the presence of the valve. ?? It has been a pleasure seeing??Mr.??Fisher??in clinic today. ?? Javid Parker DO Pager [phone] Infectious Diseases ?? Currently employed:??No ?? Adherence [...] [facility] - [address] [place] [address] History of aortic valve replacement; Elevated blood pressure reading 05/13/2024 11:00 EDT Office Visit [facility] Cardiology - [address] [place] [address] Jose Stauffer MD [address] [facility] [address] [place] [address] documented as of this encounter Visit Diagnoses Diagnosis Asymptomatic HIV infection ([facility])- Primary Asymptomatic human immunodeficiency virus (HIV) infection status History of aortic valve replacement Heart valve replaced by other means Elevated blood pressure reading Elevated blood pressure reading without diagnosis of hypertension documented in this encounter Care Teams Hem Inspector Relationship Specialty Start Date End Date Lorrie Conte MD PCP - General 10/19/17 documented as of this encounter
--- OUTSIDE RECORDS SUMMARY | 2024-05-12 17:05 | XMS_ITS | Encounter Summary ---
Author Organization [facility] Address [address] [place] [address] Care Team Providers Care Cocktail Lounge Manager Name Role Phone Lorrie Conte MD Primary Care Provider [phone] [phone] Reason for Visit * Reason Comments Other Encounter Details Date Type Department Care Team (Late st Contact Info) Description 09/27/2021 [facility] Infectious Disease [address] [address] Javid Parker, DO [address] [facility] [address] [place] [address] Other Social History Tobacco Use [...] ONE TABLET BY MOUTH ONCE DAILY 30 Tablet 11 09/27/2021 08/17/2022 documented in this encounter Miscellaneous Notes * Telephone Encounter - Christina Koch RN - 09/27/[address] Parker, sent in refills for Biktarvy to the [facility] specialty pharmacy. Patient follows up in in [facility]. CHRISTINA KOCH RN documented in this encounter Plan of Treatment Upcoming Encounters Date Type Department Care Team (Latest Contact Info) Description 05/13/2024 9:15 EDT Ancillary Procedure [facility] Cardiology - [facility] [place] [address] History of aortic valve replacement; Elevated blood pressure reading 05/13/2024 11:00 EDT Office Visit [facility] Cardiology - [address] [place], [place] [id number] Jose Stauffer MD [address] [place] [address] documented as of this encounter Visit Diagnoses Not on filedocumented in this encounter Discontinued Medications Medication Sig Discontinue Reason Start Date End Da te BIKTARVY 50-200-25 mg per tablet TAKE ONE TABLET BY MOUTH ONCE DAILY 10/06/2020 09/27/2021 documented as of this encounter Care Teams Cocktail Lounge Manager Relationship Specialty Start Date End Date Lorrie Conte MD PCP - General 10/19/17 documented as of this encounter
--- OUTSIDE RECORDS SUMMARY | 2024-05-12 17:05 | XMS_ITS | Encounter Summary ---
Author Organization [facility] Address [address] [place] [address] Care Team Providers Care Can Cutter Name Role Phone Lorrie Conte MD Primary Care Provider +1 [phone] Reason for Visit * Reason Comments Follow-up Encounter Details Date Type Department Care Team (Late st Contact Info) Description 05/14/2023 9:30 EDT Telemedicine [facility] Infectious Disease [address] [address] Javid Parker, DO [address] [facility], [address] [place] [address] Asymptomatic HIV infection (HCC-CMS) (Primary [...] Progress Notes * Javid Parker, DO - 05/14/2023 0930 EDT Division of Infectious Disease Follow up/Progress Note Telephone visit 05/14/23 10:05 The concept of ???Telemedicine?? has been described [...] care as described in the progress note. I spent a total of 30 minutes on the date of this encounter meeting with the patient and reviewing documentation/coordinating care as described in the above note. No procedures were performed at the time of the visit. HPI??Mr.??Fisher??is a??72??y.o.??male??with history significant for newly diagnosed [...] to 386and CD4??616??at 17%.? Most recent labs from Oct 2022 VL < 20, CD4 Oct 2022??945 ?? We suspect he acquired HIV infection??in??[place] (on/about 13 February??2019) from a??female whom he [...] and was referred to CT surgery at [facility] where on May??2019, pt had AVR and CABG X2. ?Perfect adherence with Biktarvy??and has a great supply thanks to the pharmacy mail system.?He has two daughters locally that??visit him frequently.?Patient had a partial knee replacement??in Aug 2020. ??He had a great trip with an old friend to [place] for about 7 weeks the summer 2021 which he really enjoyed and suspects he will schedule another trip summer 2023. He also traveled[facility] for vacation November 2022 and got a brief episode of travelers' diarrhea which resolved. ?He??works daily in the [employer] down in [place] during the spring and summertime which has been frustrating this summer due to excessive rain. He was recommended by cardiology to start an exercise routine. ?? Review of Systems: 10-point review of systems is negative except as noted in the HPI. ?? Past Medical History: BPH Acute retroviral syndrome summer 2018 ??esophageal candidiasis 2018 Tachycardia work up with holter monitor in past Thrombocytopenia: Baseline platelets range from 80-90. 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 Past Surgical History:?? Knee injections for DJD. Aortic valve replacement [facility] May 2019 CABG x 2 2018?? Knee replacement 2019 ?? MEDICATIONS Biktarvy started 26 April 2019 ?? Allergies not on file ?? 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 Sexual:??Patient denies MSM. ??His last sexual contact prior to the one in [facility] in 2018, was in [place] around 2011. ??Patient sounds like he spent less than a week with this woman that he met in [facility]. ??He does not know anything about her history. Exercise:??Busy with yard work. Travel:??From [place]. 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 Physical Exam AAOx3, very pleasant,?Wt 203 pounds, blood pressure 132/60 ?? 25 April??2018??HIV genotype no resistance genes. ?? Assessment and Plan: ?? #) HIV - Diagnosed in??March 2019, baseline CD4 count 529 at 16% and initial??HIV viral load 94,000. ??Genotype shows no resistance genes. - Prior regimens include??none - Currently on??Biktarvy started 26 April 2019.? -??Oct 2022??CD4 945?? - HIV??viral load?May 2022.?? Current VL Oct 2022 < 20 - OI prophylaxis:??NA - Compliance:??Perfect - Sexual activity:??None since [facility] January 2019 - G/C, RPR: April [...] months. ??Zoom visit seem to work very well. Need HIV VL now. ?? #) Health maintenance - Cholesterol:??Per PCM - Diabetes:??Screening per PCM - Colonoscopy:??Screening colonoscopy 2018 tubular adenoma. - Immunizations:??flu??shot fall 2021, Tdap 2012, shingles 2013, pneumovax 2016.?COVID vaccine 2020, omicron booster??up-to-date. ??We think his Prevnar 13 and hepatitis B was taken care of by his primary care provider. Needs flu and covid booster fall 2022 ?? #)??Orthopneic dyspnea,??etiology never clear, patient given CPAP machine but it does not sound like he needs to use it anymore. ?#)??Status post aortic valve replacement??2019. ??Patient reminded he needs antibiotics around the time of dental work and to inform his dentist of the presence of the valve. Seen by cards April 2023, recommended to lose wt and start exercising. Sees [facility] cardiology in follow up summer 2023 ?? It has been a pleasure seeing??Mr.??Fisher??in clinic today. ?? Javid Parker DO Pager [phone] Infectious Diseases ?? Currently employed:??No ?? Adherence [...] Description 05/13/2024 9:15 EDT Ancillary Procedure [facility] Cardiology - [address] [place] [address] History of aortic valve replacement; Elevated blood pressure reading 05/13/2024 11:00 EDT Office Visit [facility] Cardiology - [address] [place] [address] Jose Stauffer MD [address] [place] [address] [address] [place] [address] documented as of this encounter Visit Diagnoses Diagnosis Asymptomatic HIV infection ([facility])- Primary Asymptomatic human immunodeficiency virus (HIV) infection status History of aortic valve replacement Heart valve replaced by other means Elevated blood pressure reading Elevated blood pressure reading without diagnosis of hypertension documented in this encounter Care Teams Can Cutter Relationship Specialty Start Date End Date Lorrie Conte MD PCP - General 10/19/17 documented as of this encounter
--- OUTSIDE RECORDS SUMMARY | 2024-05-12 17:05 | XMS_ITS | Encounter Summary ---
Author Organization [facility] Address [address] [place] [address] Care Team Providers Care Unit Educator Name Role Phone Lorrie Conte MD Primary Care Provider [phone] Reason for Visit * Cardiology (Routine) - Closed Specialty Diagnoses / Procedures Referred By Contac t Referred To Contact Cardiology Diagnoses H/O aortic valve replacement Hypoxemia Procedures TRANSTHORACIC ECHO (TTE) COMPLETE Jose Stauffer MD [address] [facility] [address] [place] [address] [facility] Cardiology [address] [place] [address] [place] [address] Referral ID Status Reason Start Date Expiration Date Visits Re quested Visits Authorized [id number] Closed 03/11/2020 1 1 Encounter Details Date Type Department Care Team (Latest Contact Info) Description 02/22/2021 9:15 EDT Ancillary Procedure [facility] Cardiology - [address] [place] [address] H/O aortic valve replacement; Hypoxemia Social History Tobacco Use Types Packs/Day [...] Sign Reading Time Taken Comments Blood Pressure 146/72 02/22/2021 1018 EDT Pulse - - Temperature - - Respiratory Rate - - Oxygen Saturation - - Inhaled Oxygen Concentration - - Weight 83.9 kg (185 lb) 02/22/2021 1018 EDT Height 162.6 cm (5' 4) 02/22/2021 1018 EDT Body Mass Index 31.76 02/22/2021 1018 EDT documented in this encounter [...] Description 05/13/2024 9:15 EDT Ancillary Procedure [facility] Cardiology - [address] [place] [address] History of aortic valve replacement; Elevated blood pressure reading 05/13/2024 11:00 EDT Office Visit [facility] Cardiology - [facility] [place] [address] Jose Stauffer MD [address] [facility] [address] [place] [address] documented as of this encounter Procedures Procedure Name Priority Date/Time Associated Diagnosis Comments TRANSTHORACIC ECHO (TTE) COMPLETE Routine 02/22/2021 10:12 EDT H/O aortic valve replacement Hypoxemia documented in this encounter Results * TRANSTHORACIC ECHO (TTE) [...] color Doppler.The study was interpreted by [facility] Cardiology. Pertinent images and [...] encounter Visit Diagnoses Diagnosis H/O aortic valve replacement Heart valve replaced by other means Hypoxemia History of aortic valve replacement Heart valve replaced by other means Elevated blood pressure reading Elevated blood pressure reading without diagnosis of hypertension documented in this encounter Care Teams Unit Educator Relationship Specialty Start Date End Date Lorrie Conte MD PCP - General 10/19/17 documented as of this encounter
--- OUTSIDE RECORDS SUMMARY | 2024-05-12 17:05 | XMS_ITS | Encounter Summary ---
Author Organization [facility] Address [address] [place] [address] Care Team Providers Care Hockey Player Name Role Phone Lorrie Conte MD Primary Care Provider [phone] Encounter Details Date Type Department Care Team (Late st Contact Info) Description 11/01/2022 Specialty Pharmacy [facility] - Main [place] [address] [place], [place] [address] Lovely Huber, [facility] Social History Tobacco Use Types [...] encounter Progress Notes * Wendy Lozano - 11/01/2022 1305 EST [facility] Specialty Pharmacy Delivery Information Hours: Sunday-Sunday 8:30am - 5:00pm *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/04 Delivery Service: [employer] Delivery Window: None Specified Date of Delivery: 11/09/21 Tracking # : [id number] documented in this encounter Plan of Treatment Upcoming Encounters Date Type Department Care Team (Latest Contact Info) Description 05/13/2024 9:15 EDT Ancillary Procedure [facility] Cardiology - [address] [place], [place] [id number] History of aortic valve replacement; Elevated blood pressure reading 05/13/2024 11:00 EDT Office Visit [facility] Cardiology [address] [place], [place] [phone] Jose Stauffer MD [address] [place] [address] [address] [place] [address] documented as of this encounter Visit Diagnoses Not on filedocumented in this encounter Care Teams Hockey Player Relationship Specialty Start Date End Date Lorrie Conte MD PCP - General 10/19/17 documented as of this encounter
--- OUTSIDE RECORDS SUMMARY | 2024-05-12 17:05 | XMS_ITS | Encounter Summary ---
Author Organization [facility] Address [address] [place] [address] Care Team Providers Care Diagnostic Cardiac Sonographer Name Role Phone Lorrie Conte MD Primary Care Provider [phone] Encounter Details Date Type Department Care Team (Late st Contact Info) Description 03/21/2023 Specialty Pharmacy [facility] - Main [place] [address] [place], [place] [phone] Lovely Huber, [facility] Social History Tobacco Use Types Packs/Day [...] Progress Notes * Lovely Huber RPH - 03/21/2023 5380 EDT [facility] Infectious Disease Clinic Medication Therapy Follow Up: Jose Fisher is a 72 y.o. male being treated with Biktarvy for HIV. The patient started treatment on in 2019. I spoke with Bill over the phone to follow up. I completed a complete review of the patient's current medical record, including medications, allergies and immunizations. There are no pertinent drug-drug interactions at this time. Adherence: Patient has not missed any doses since last follow-up, as determined via patient self-report. He took a dose late one time. Normally takes at night and woke up at 5am to take it late. Reasons for Non-Adherence: no problems identified Therapy appropriately withheld: N/A Side effects/toxicities: None Assessment: Therapeutic benefits achieved: Yes (HIV 1 RNA <20, CD4 >900) Medication therapy appropriate: Yes Education Provided: Patient asked if it's okay if his delivery arrives when he is down to only 4 tablets. I reassured him that this is okay. Follow-up planned: - Clinic appointment: TBS - Phone call: as needed for patient questions/concerns - Laboratory monitoring: ~06/2023, managed by Dr. Parker - Next refill due: delivery set up for 03/23 Lovely Huber, PharmD Ambulatory Pharmacist [facility] Infectious Disease 03/21/2023 documented in this encounter Plan of Treatment Upcoming Encounters Date Type Department Care Team (Latest Contact Info) Description 05/13/2024 9:15 EDT Ancillary Procedure [facility] Cardiology - [address] [place], [place] [id number] History of aortic valve replacement; Elevated blood pressure reading 05/13/2024 11:00 EDT Office Visit [facility] Cardiology - [address] [facility] [place], [place] [id number] Jose Stauffer MD [address] [facility] [address] [place] [address] documented as of this encounter Visit Diagnoses Not on filedocumented in this encounter Discontinued Medications Medication Sig Discontinue Reason Start Date End Da te potassium chloride SA (K-DUR) 10 mEq tablet Take 10 mEq by mouth as needed. Discontinued by another clinician 03/21/2023 UNKNOWN TO PATIENT Eye drops, type unknown 03/21/2023 documented as of this encounter Historical Medications * This list may reflect changes made after this encounter. Medication Sig Dispensed Refills Start Date End Date amoxicillin (AMOXIL) 500 mg capsule TAKE FOUR CAPSULES BY MOUTH ONE HOUR PRIOR TO DENTAL APPOINTMENT 05/15/2022 timolol (TIMOPTIC) 0.5 % ophthalmic solution Place 1 Drop into both eyes 2 times daily. 01/10/2023 brimonidine (ALPHAGAN) 0.2 % ophthalmic solution INSTILL 1 DROP INTO BOTH EYES TWO TIMES A DAY 12/26/2022 prednisoLONE (PRED FORTE) 1 % ophthalmic suspension INSTILL ONE DROP IN THE LEFT EYE FOUR TIMES A DAY 01/09/2023 added in this encounter Care Teams Diagnostic Cardiac Sonographer Relationship Specialty Start Date End Date Lorrie Conte MD PCP - General 10/19/17 documented as of this encounter
--- OUTSIDE RECORDS SUMMARY | 2024-05-12 17:06 | XMS_ITS | Encounter Summary ---
Author Organization [facility] Address [address] [place] [address] Care Team Providers Care Speech Pathologist Name Role Phone Lorrie Conte MD Primary Care Provider [phone] Reason for Visit * Reason Onset Date Comments New/Evolving Symptoms 05/29/2019 discharged from hospital/sob/dizzy/low bp/heart rate between 42-45 Encounter Details Date Type Department Care Team (Late st Contact Info) Description 05/29/2019 Telephone [facility] Cardiology - [facility] [address] [place] [address] Jose Stauffer MD [address] [place] [address] New/Evolving Symptoms (discharged from hospital/sob/dizzy/low bp/heart rate between 42-45) Social History Tobacco Use Types Packs/Day Years [...] a physical, menta l, or emotional condition, do you have difficulty doing errands alone such as visiting a doctor's office or shopping? (15 years old or older) No 05/14/2019 Cognitive Status Response Date of Assessm ent Because of a physical, menta l, or emotional condition, do you have serious difficulty concentrating, remembering, or making decisions? (5 years old or older) No 05/14/2019 documented as of this encounter Miscellaneous Notes * Telephone Encounter - Roopa Kaur RN - 05/30/[address] Liberty Conte, they will fax EKG today and note if it is transcribed. * Telephone Encounter - Bruna Serrano RN - 05/29/2019 1204 EDT Spoke with patient's daughter. Patient was just discharged from the hospital 05/26/19. He has been doing well at home. The daughter said she has held his metoprolol the last two nights (he takes it BID) but gave patient his meds this am, including metoprolol and lasix. His blood pressure prior to taking his meds was 126/70. At around 9:30 am he got up to the BR and after using the BR had a spell.He became dizzy diaphoretic and sob. Did not lose consciousness or fall but did not feel good. The daughter came over after the call and took his BP and HR and his BP was 88/50 and HR was in the low 40s. She said he is asleep now. Repeat BP was 90/48 but HR remains in the 40s. She would like to know what she should do. She feels the metoprolol is too much. Paged Dr. Stauffer, spoke with him right away. He said the patient should hold his metoprolol for now and see his PCP today and get an EKG. Spoke with the daughter again and gave her instructions given by dr. Stauffer. She felt better and said her dad already has an appt with his PCP today at 3:20. I told her to request that they do an EKG at the PCP office today. She is happy with the plan, no other questions or concerns and no barriers to education noted. Instructed her to go to the ER if things got worse in the meantime. Bruna Serrano, RN * Telephone Encounter - Sissy Cabral - 05/29/2019 1125 EDT Daughter calling on behalf of father who was just discharged from the hospital after heart surgery. Having SOB, not feeling well, dizzy, blood pressure 88/50 and heart rate between 42-45 Did have metoprolol 37.5 mg tablet and furosemide (LASIX) 20 mg tablet this morning Pls call back documented in this encounter Plan of Treatment Upcoming Encounters Date Type Department Care Team (Latest Contact Info) Description 05/13/2024 9:15 EDT Ancillary Procedure [facility] Cardiology - [address] [place] [address] History of aortic valve replacement; Elevated blood pressure reading 05/13/2024 11:00 EDT Office Visit [facility] Cardiology - [address] [place], [place] [phone] Jose Satuffer MD [address] [facility] [address] [place] [address] documented as of this encounter Visit Diagnoses Not on filedocumented in this encounter Care Teams Speech Pathologist Relationship Specialty Start Date End Date Lorrie Conte MD PCP - General 10/19/17 documented as of this encounter
--- OUTSIDE RECORDS SUMMARY | 2024-05-12 17:06 | XMS_ITS | Encounter Summary ---
Author Organization [facility] Address [address] [place] [address] Care Team Providers Care Nickel Plant Operator Name Role Phone Lorrie Conte MD Primary Care Provider [phone] Reason for Visit * Reason Comments Follow-up Encounter Details Date Type Department Care Team (Late st Contact Info) Description 06/16/2019 14:15 EDT Office Visit [facility] Infectious Disease - [address] [address] Javid Parker, DO [address] [facility] [place] [address] Asymptomatic HIV infection (HCC-CMS) (Primary [...] No 05/14/2019 documented as of this encounter Progress Notes * Javid Parker, DO - 06/16/2019 1415 EDT Chief Complaint: HIV follow-up care ?? HPI: Mr. Fisher is a 68 y.o. male with history significant for newly diagnosed HIV who presents with follow up. HIV diagnosed in March 2019 by PCM with a positive 4th gen Ab/Ag test done as part of a viral syndrome work up . Initial CD4 done in Apr was 529 at 16%, HIV VL 94,797. Pt started on Biktarvy on 26 April with perfect adherence. Genotype showed no evidence of resistance. On next set oflabs 16 May (done due to AVR surgery ), VL down to 386 and CD4 616 at 17%. ?? We suspect he acquired HIV infection in [facility] (on/about 13 Feb 2019) from a female whom he didn'tknow very well and I suspect could have been a sex worker. Pt denies MSM. He states [facility] by [facility]M) and done for just primary care-routine screening. ?? Biktarvy started on 26 April,however pt noted SOB develop several days prior to starting ART. He was seen by PCM who got an echo that showed severe AV regurg and was referred to CT surgery at [facility] where on May, pt had AVR and CABG X2. Pt d/c home on May but continues to have difficulty withSOB and more specifically orthopnea. He was more recently evaluated by neurology at [facility] on Maywith their A/P attached below. Per neurology note, he has had PFTs May showing concern for restrictive lung disease and possible neuromuscular disorder. However, after their exam, they concluded that pt does not have any signsor symptoms of a neuromuscular, neuropathic or myopathic disorder. Per PCMs notes who saw pt multiple times in May, he had a Chest CT that showed no evidence of PE but did have bibasilar atx, L>R and small bilateral pleural effusions. He had an echo done but results unclear. Per PCM's notes, he desatted down to the 70s when he laid flat in her office. Pt globally is improved with his symptoms and happy with progress. He will see cardiology on sun, then see pu lm in [place] in the future to complete work up. No fevers, chills, night sweats, nausea, vomiting or diarrhea. No problems with sternotomy wound healing. ?? Review of Systems: 10-point review of systems is negative except as noted in the HPI. ?? Past Medical History: BPH Acute retroviral syndrome summer 2018 esophageal candidiasis 2019 Tachycardia work up with holter monitor in past Thrombocytopenia: Baseline platelets range from 80-90. 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 DJD Severe AV regurg dx 2019 Orthopnea of unclear etiology ?? Past Surgical History: Knee injections for DJD. Aortic valve replacement [facility] May 2019 CABG x 2 2019?? MEDICATIONS Biktarvy started 26 April 2019 Fluconazole (pt on another 10 day course started May for thrush) ?? Allergies not on file ?? 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 Sexual: Patient denies MSM. His last sexual contact prior to the one in [facility], was in [place] around 2011. Patient sounds like he spent less than a week with this woman that he met in [facility]. He does not know anything about her history. Exercise: Busy with yard work. Travel: From [place]. 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 Only other recent travel was a trip to [facility] in January 2019, then to [place] in February 2019. Both were vacations ?? Social History ?? Socioeconomic History ??? Marital status: Single ? [...] Gets together: Not on file ? Attends amish service: Not on file ? Active member [...] Not on file ? Family history: Pertinent for mother with Alzheimer's, father with liver cancer. He has 3 healthy daughters. The Family History was reviewed and is non-contributory for a past history of infection or immunocompromised state. ?? Physical Exam Wt 158 122/70 P 84 General: NAD, very pleasant . Pt seen with daughter. Skin: no rashes or lesions HEENT and oral exam: AT/NC. EOMI. PERRL. Sclera anicteric. Oropharnyx w/o erythema or exudates. Normal dentition.?? Neck: supple, no LAD CV: RRR, no MRG, S1 + S2 normal. Sternotomy wound healing very well. Pulm: CTAB, no wheezes, rales, or rhonchi Abd: Abdomen is nontender, nondistended. We did not lay pt flat today because it always causes SOB. Ext: +1 lower extremity pitting edema bilateral Neuro: A+Ox3, CN2-12 intact, strength 5/5 globally ?? 23 April chest x-ray showing bibasilar atelectasis. ?? 25 April HIV genotype no resistance genes. ?? Assessment and Plan: ?? #) HIV - Diagnosed in March 2019, baseline CD4 count 529 at 16% and initial HIV viral load 94,000. Genotypeshows no resistance genes. - Prior regimens include none - Currently on Biktarvy started 26 April 2019. Follow on labs on 16 May showed VL 386 and CD4 616 at 17% - OI prophylaxis: I think it is okay for none for now as CD4 percentage is greater than 14. - Compliance: Perfect - Sexual activity: None since [facility] January 2019 - G/C, RPR: April 2019 RPR nonreactive. April 2019 urine gonorrhea chlamydia negative - HBV/HCV: Hepatitis A, HCV antibody negative, hepatitis B surface antigen negative, hepatitis B core antibody negative, hepatitis B surface antibody negative, - Dental exam normal dentition - HLA B 5701 negative -QuantiFERON gold -March 2019. Toxoplasma IgG negative, toxoplasma IgM negative, CMV IgG positive, CMV IgM negative. Follow up with me in 2-3 months. We are getting labs on sun when pt is at [facility] for cardiology visit. If they look good, can start doing them q 6 months. ?? #) Health maintenance - Cholesterol: Per PCM - Diabetes: Screening per PCM - Colonoscopy: Screening colonoscopy 2018 tubular adenoma. - Immunizations: No records available, for next visit, will try to get vaccine records from ?? #) Orthopneic dyspnea with desatting to the 70's in PCM office. Chest CT unremarkable, echo resultspending, neurology evaluation was neg. Pt will follow up with cardiology at [facility] on Jun and sees pulm in [place] as well. From ID standpoint, I don't think his symptoms are related to his HIV infection or his HIV meds. ?? # Thrush has resolved. Pt can stop his fluconazole. ? It has been a pleasure seeing Mr. Fisher in clinic today. ?? Javid Parker DO Pager [phone] Infectious Diseases documented in this encounter Plan of Treatment Upcoming Encounters Date Type Department Care Team (Latest Contact Info) Description 05/13/2024 9:15 EDT Ancillary Procedure [facility] Cardiology - [address] [place] [address] History of aortic valve replacement; Elevated blood pressure reading 05/13/2024 11:00 EDT Office Visit [facility] Cardiology - [facility] [address] [facility] [place] [address] Jose Stauffer MD [address] [place] [address] [address] [place] [address] documented as of this encounter Visit Diagnoses Diagnosis Asymptomatic HIV infection (HCC-[facility])- Primary Asymptomatic human immunodeficiency virus (HIV) infection status History of aortic valve replacement Heart valve replaced by other means Elevated blood pressure reading Elevated blood pressure reading without diagnosis of hypertension documented in this encounter Care Teams Nickel Plant Operator Relationship Specialty Start Date End Date Lorrie Conte MD PCP - General 10/19/17 documented as of this encounter
--- OUTSIDE RECORDS SUMMARY | 2024-05-12 17:06 | XMS_ITS | Encounter Summary ---
Author Organization [facility] Address [address] [place] [address] Care Team Providers Care Business Education Teacher Name Role Phone Lorrie Conte MD Primary Care Provider [phone]- [phone] Encounter Details Date Type Department Care Team (Latest Contact Info) Description 07/07/2019 10:27 EDT - 07/07/2019 23:59 EDT Hospital Encounter [facility] [address] [place] [address] Hamlet Estevez MD Discharge Disposition: Auto Discharge Social History Tobacco Use Types Packs/Day Years [...] No 06/18/2019 documented as of this encounter Discharge Diagnoses Diagnosis I35.1 Nonrheumatic aortic (valve) insufficiency-I35.1[ICD-10-CM] I25.10 Atherosclerotic heart disease of [place] coronary artery without angina pectoris-I25.10[ICD-10-CM] documented in this encounter Medications at Time of Discharge Medication Sig Dispensed Refills Start Date End Date aspirin 81 mg EC tablet Take 1 Tab by mouth daily. 05/27/2019 tamsulosin (FLOMAX) 0.4 mg capsule Take 1 Capsule by mouth daily. Take one capsule by mouth every day 30 minutes after the same mealtime each day for prostate/urinary symptoms. acetaminophen (TYLENOL) 500 mg tablet Take 1 Tab by mouth every 6 hours as needed for Pain. 05/26/2019 02/17/2020 atorvastatin (LIPITOR) 20 mg tablet Take 1 Tab by mouth daily for 90 days. 30 Tab 2 05/27/2019 08/25/2019 bictegravir-emtricitabin e-tenofovir alafenamide (BIKTARVY) 50-200-25 mg per tablet Take 1 Tab by mouth daily. 10/06/2020 fluconazole (DIFLUCAN) 100 mg tablet Take 100 mg by mouth every 48 hours. 02/22/2021 potassium chloride SA (K-DUR) 10 mEq tablet Take 10 mEq by mouth as needed. 03/21/2023 documented as of this encounter Discharge Disposition Disposition Code Departure Means Destination Auto Discharge Home documented in this encounter Plan of Treatment Upcoming Encounters Date Type Department Care Team (Latest Contact Info) Description 05/13/2024 9:15 EDT Ancillary Procedure [facility] [place] [facility] Cardiology - [facility] [place] [address] History of aortic valve replacement; Elevated blood pressure reading 05/13/2024 11:00 EDT Office Visit [facility] [place] [facility] Cardiology - [facility] [place] [address] Jose Stauffer MD [address] [place] [address] documented as of this encounter Visit Diagnoses Not on filedocumented in this encounter Care Teams Business Education Teacher Relationship Specialty Start Date End Date Lorrie Conte MD PCP - General 10/19/17 documented as of this encounter
--- OUTSIDE RECORDS SUMMARY | 2024-05-12 17:06 | XMS_ITS | Encounter Summary ---
Author Organization [facility] Address [address] [place] [address] Care Team Providers Care Parking Inspector Name Role Phone Lorrie Conte MD Primary Care Provider [phone] [phone] Reason for Visit * Reason Comments Heart Problem POH, CABG x2 w/ AVR, * Follow Up (Other (Specify in Question)) - Closed Specialty Diagnoses / Procedures Referred By [facility] Referred To Contact Cardiology Diagnoses Coronary artery disease involving rapp[place]annock heart without angina pectoris, unspecified vessel or lesion type Aortic valve insufficiency, etiology of cardiac valve disease unspecified Hamlet Estevez MD [facility] Cardiology [address] [place] [address] [place] [address] Referral ID Status Reason Start Date Expiration Date V isits Requested Visits Authorized [id number] Closed Specialty Services Required 05/26/2019 1 1 Encounter Details Date Type Department Care Team (Late st Contact Info) Description 06/18/2019 8:00 EDT Office Visit [facility] Cardiology - [address] [place] [address] Jose Roy MD [address] [facility] [address] [place] [address] Encounter for follow-up for aortic valve replacement (Primary Dx); Shortness of breath; Hx of CABG Discharge Disposition: Auto Discharge Social History Tobacco [...] Sign Reading Time Taken Comments Blood Pressure 102/64 06/18/201948 EDT Pulse 82 06/18/2019747 EDT Temperature 36.1 ??C (97 ??F) 06/18/2019747 EDT Respiratory Rate - - Oxygen Saturation 98% 06/18/2019747 EDT Inhaled Oxygen Concentration - - Weight 73 kg (161 lb) 06/18/2019747 EDT Height 167.6 cm (5' 5.98) 06/18/2019747 EDT Body Mass Index 26 06/18/2019 07 EDT documented in this encounter Functional Status [...] as of this encounter Discharge Diagnoses Diagnosis Z09 Encntr for f/u exam aft trtmt for cond oth than malig neoplm-Z09[ICD-10-CM] R06.02 Shortness of breath-R06.02[ICD-10-CM] Z95.1 Presence of aortocoronary bypass graft-Z95.1[ICD-10-CM] documented in this encounter Discharge Disposition Disposition Code Departure Means Destination Auto Discharge documented in this encounter Progress Notes * Jose Roy MD, MD - 06/18/2019 0800 EDT Type of visit: Follow-up Primary diagnosis: Recent hospitalization for severe aortic valve regurgitation and coronary arterydisease. Subjective: Mr. Fisher came in today and notes that he is feeling better. He still has hypoxia and shortness of breath in the supine position (orthopnea) but it has improved. He is able to sleep whenhe uses 2 pillows. He is undergoing an evaluation for this problem; thus far it has included a neurological evaluation, PFTs, and a chest CT. According to neurology, he does not have a neurological cause of this problem. ID does not feel that it is related to either HIV or his HIV medications. The PFTs were somewhat abnormal. The chest CT was unremarkable. An agitated saline contrast study done in the hospital was normal. Mr. Fisher has increased his activity and is pleased with his progress. He will be starting the local cardiac rehab program soon. An outpatient ECG revealed sinus rhythm. Cardiovascular history: the following is cut and pasted from Dr. Estevez's operative note. PROCEDURE: On-pump aortic valve replacement (large Perceval valve), coronary artery bypass x2 (right greater saphenous vein to obtuse marginal and posterior descending coronary arteries), endoscopic right greater saphenous vein harvest. Medications: Medications, including dosages and frequency, were reviewed. Cardiovascular medications: Aspirin 81 mg daily. Atorvastatin 20 mg daily. Furosemide 40 mg daily. Objective: Comfortable. Vitals: blood pressure 102/64; heart rate 82 (regular); oxygen saturation 98%; weight 161 lbs; height 66 inches; BMI 26.0. HEENT: anicteric sclera, normal conjunctiva, normal mucous membranes. Neck: normal size. Chest: healing midline sternotomy; stable. Lungs: clear to auscultation; no wheezes or crackles. Cardiovascular: no jugular venous distention. Carotids: normal upstroke and volume. Palpation: no thrill. Ausculta tion: normal S1 and S2. There was a 1-2/6 early peaking ejection murmur. There was no diastolic murmur, gallop, click or rub. Abdomen: no hepatosplenomegaly. Extremities: no clubbing, cyanosis, or edema. Diagnostic testing: I tested his oxygen saturation when he was at 20 degrees. It dropped to 89%. With deep breaths, while lying back, it increased to 95%. Assessment and plan: Mr. Fisher is recovering well from his recent AVR // CABG. He looked good today. He feels that his orthopnea with associated hypoxemia is getting better. He has an upcoming appointment with pulmonarymedicine, and I really hope that they evaluate his diaphragm. I can't help but think that his problem is mechanical with hypoventilation when he is supine. Arterial blood gases would help clarify this as well. If this is from hypoventilation, then his CO2 should rise as his oxygenation falls. If nothing is ultimately found, I may bring him in for a RICARDO to get a good look at his atrial septum and even consider a bubble study from the lower extremities while supine. I did order an NT-proBNP and CBC today. As is, I plan to see him back in 8 months (after the winter), but I will be in touch with the progress and results of his evaluation. JOSE ROY MD Attending Extruding Press Operator [facility] Note: I spent 35 minutes evaluating Mr. Fisher (25 minutes [id number]) > 50% of which was spent in discussion // counseling related to his heart and orthopnea. documented in this encounter Plan of Treatment Upcoming Encounters Date Type Department Care Team (Latest Contact Info) Description 05/13/2024 9:15 EDT Ancillary Procedure [facility] Cardiology - [address] [place], [place] [id number] History of aortic valve replacement; Elevated blood pressure reading 05/13/2024 11:00 EDT Office Visit [facility] Cardiology - [facility] [place] [address] [address] [place] [address] Jose Roy MD [address] [facility] [address] [place] [address] documented as of this encounter Visit Diagnoses Diagnosis Encounter for follow-up for aortic valve replacement- Primary Follow-up examination, following other surgery Shortness of breath Hx of CABG Postsurgical aortocoronary bypass status History of aortic valve replacement Heart valve replaced by other means Elevated blood pressure reading Elevated blood pressure reading without diagnosis of hypertension documented in this encounter Discontinued Medications Medication Sig Discontinue Reason Start Date End Da te traMADol (ULTRAM) 50 mg tablet Take 1 Tab by mouth every 8 hours as needed for Pain. Daily Max: 150 mg 05/26/2019 06/18/2019 metoprolol 37.5 mg tablet Take 37.5 mg by mouth 2 times daily for 90 days. 05/26/2019 06/18/2019 gabapentin (NEURONTIN) 300 mg capsule Take 1 Cap by mouth every 8 hours as needed for Pain. 05/26/2019 06/18/2019 documented as of this encounter Care Teams Parking Inspector Relationship Specialty Start Date End Date Lorrie Conte MD PCP - General 10/19/17 documented as of this encounter
--- OUTSIDE RECORDS SUMMARY | 2024-05-12 17:06 | XMS_ITS | Encounter Summary ---
Author Organization [facility] Address [address] [place] [address] Care Team Providers Care Equipment Driver Name Role Phone Lorrie Conte MD Primary Care Provider [phone] Reason for Visit * Reason Onset Date Comments Post-OP Follow Up 05/30/2019 Encounter Details Date Type Department Care Team (Late st Contact Info) Description 05/30/2019 Telephone [facility] Cardiothoracic Surgery - [facility] [address] [place] [address] Jackie Dallas, DRE Post-OP Follow Up Social History Tobacco Use Types Packs/Day Years [...] encounter Miscellaneous Notes * Telephone Encounter - Jackie Dallas Pa-C - 06/27/2019 0841 EDT I called him again today to check in and see how he was feeling. I left a voicemail. * Telephone Encounter - Jessy Hernandez APRN - 06/11/[address] Surgery Update Note: Attempted to call patient a couple times but went to voicemail and the inbox was full and I was unable to leave a message. Called and left message with patient's daughter as well. Will attempt again later this week. Jessy Hernandez, [facility]- Cardiothoracic Surgery #[id number] 06/11/2019 17:04 * Telephone Encounter - Maryam Sousa RN - 06/03/[address] Surgery Update: I spoke to the patient's daughter. The patient is currently at a neurology appointment. He was refered by his PCP to neurology for shortness of breath with laying flat. PCP has continued to hold Metoprolol and Lasix is 80 mg daily. Patient has no breathing issues while sitting or at rest. Patient will be called by CT Surgery for an update within the week. * Telephone Encounter - Maryam Sousa RN - 06/03/[address] Surgery follow-up call. Patient called and mailbox is full. Message can not be left. * Telephone Encounter - Jackie Dallas - 05/30/2019 1120 EDT I called Mr. Fisher today. I spoke to him briefly, he said he is still having SOB, then he handed his phone to his daughter. The daughter was somewhat frustrated and stated that his HR was 39 yesterday and he had a BP of 80/40. EKG was ordered by [place] office but was not readable. Metoprolol was stopped and lasix was changed from 40 bid to 80 qd. He is scheduled for a CXR, Chest CT and PFTs this afternoon at [facility]. I asked that the results be sent to our office as well. The daughter also stated that he struggled with SOB when supine at the hospital and it hasn't improved. She said he still has very edematous lower extremities and continues to wear the Luigi hose . I made sure they had our phone # if they had any further questions or concerns. They also have a repeat EKG on Sunday scheduled. Follow up appointment is 06/[address] Stauffer and he has been seeing his PCP (Dr. Conte). We will call him again on Sunday to check in. documented in this encounter Plan of Treatment Upcoming Encounters Date Type Department Care Team (Latest Contact Info) Description 05/13/2024 9:15 EDT Ancillary Procedure [facility] Cardiology [address] [place] [address] History of aortic valve replacement; Elevated blood pressure reading 05/13/2024 11:00 EDT Office Visit [facility] Cardiology [address] [place] [address] Jose Stauffer MD [address] [facility] [address] [place] [address] documented as of this encounter Visit Diagnoses Not on filedocumented in this encounter Care Teams Equipment Driver Relationship Specialty Start Date End Date Lorrie Conte MD PCP - General 10/19/17 documented as of this encounter
--- OUTSIDE RECORDS SUMMARY | 2024-05-12 17:06 | XMS_ITS | Encounter Summary ---
Author Organization [facility] Address [address] [place] [address] Care Team Providers Care Health Researcher Name Role Phone Lorrie Conte MD Primary Care Provider [phone] Reason for Visit * Reason Onset Date Comments Appointment Related 02/16/2020 Encounter Details Date Type Department Care Team (Late st Contact Info) Description 02/16/2020 Telephone [facility] Cardiology - [facility] [address] [place] [address] Jose Stauffer MD [facility] [address] [place] [address] Appointment Related Social History Tobacco Use Types Packs/Day Years [...] encounter Miscellaneous Notes * Telephone Encounter - Tg Berrios - 02/16/2020 0954 EDT UNABLE TO REACH PT TO GET VERBAL CONSENT FOR APPT ON 02.17.20 documented in this encounter Plan of Treatment Upcoming Encounters Date Type Department Care Team (Latest Contact Info) Description 05/13/2024 9:15 EDT Ancillary Procedure [facility] Cardiology [address] [place] [address] History of aortic valve replacement; Elevated blood pressure reading 05/13/2024 11:00 EDT Office Visit [facility] Cardiology - [address] [place], [place] [id number] Jose Stauffer MD [address] [facility] [address] [place] [address] documented as of this encounter Visit Diagnoses Not on filedocumented in this encounter Care Teams Health Researcher Relationship Specialty Start Date End Date Lorrie Conte MD PCP - General 10/19/17 documented as of this encounter
--- OUTSIDE RECORDS SUMMARY | 2024-05-12 17:06 | XMS_ITS | Encounter Summary ---
Author Organization [facility] Address [address] [place] [address] Care Team Providers Care Floatman Name Role Phone Lorrie Conte MD Primary Care Provider [phone] Reason for Visit * Reason Comments Post-OP Follow Up Here for follow up, xray today. Encounter Details Date Type Department Care Team (Latest Contact Info) Description 07/07/2019 11:30 EDT Office Visit [facility] Cardiothoracic Surgery - [facility] [place] [address] [place] [address] Hamlet Estevez MD Nonrheumatic aortic valve insufficiency (Primary Dx) Discharge Disposition: Auto Discharge Social History Tobacco [...] Sign Reading Time Taken Comments Blood Pressure 114/80 07/07/2019 1147 EDT Pulse 80 07/07/2019 1147 EDT Temperature 36.5 ??C (97.7 ??F) 07/07/2019 1147 EDT Respiratory Rate 14 07/07/2019 1147 EDT Oxygen Saturation 96% 07/07/2019 1147 EDT Inhaled Oxygen Concentration - - Weight 72.1 kg (159 lb) 07/07/2019 1147 EDT Height 162.6 cm (5' 4) 07/07/2019 1147 EDT Body Mass Index 27.29 07/07/2019 1147 EDT documented in this encounter Functional Status [...] Diagnoses Diagnosis I35.1 Nonrheumatic aortic (valve) insufficiency-I35.1[ICD-10-CM] documented in this encounter Patient Instructions * Patient Instructions* Maryam Sousa RN - 07/07/2019 11:30 EDT No lift, push, pull greater than ten pounds from your surgery date as follows: Full-Sternotomy (long incision over chest bone) 12 week Continue your long-term care follow-up with your Technical Sme/Heart Doctor and Primary Care Provider/Doctor as well as any other Providers/Doctors that you normally follow with. Following closely with your Doctors for health care maintenance is very important. Continue to follow your Cardiac Diet. You will learn more about your Cardiac Diet at the OutpatientCardiac Rehabilitation Program. If you are diabetic, continue to follow the Diabetic Diet or as per your Doctor. Follow-up with your Primary Care Provider/Doctor or Personnel Monitor/Diabetes Doctor for your diabetes. Continue to ambulate/walk as reviewed in the Discharge Video. Continue Cardiac Rehabilitation at the Hospital closest to your home if you have already started the Program. This Program is an important part of your recovery process. This will include instructionand education on a life-long exercise Program as well as education around your cardiac/heart disease, diet and risk factors that you can control. If you have not started Cardiac Rehabilitation, contact your Primary Care Provider/Doctor or your Technical Sme/Heart Doctor for a referral to the Program with a Stress Test. For those of you who attend the Program at [facility] ([facility]iology) you can have your Stress Test at the Cardiac Rehabilitation Program. They are located at [address] [place] [address]. Their telephone number is . Follow the [employer] Antibiotic Prophylaxis/Prevention Guidelines for life, given and reviewed with you in a handout format today. Bring this with you to your Cardiology/Heart Doctorfollow-up visits in the future so that your Technical Sme/Heart Doctor can inform you of any future u pdates regarding these Guidelines. Your prescription for an antibiotic should come from your Primary Care Provider/Doctor or Dentist. Wait three months from your surgery date to have dental work or dental cleanings unless you are having a dental problem then follow the Guidelines given to you listed above. If you have chest, jaw, neck, arm, back pain or pressure, nausea, sweating, shortness of breath, dizziness with sweating, palpitations (fluttering in your chest), fast heart beat or irregular heart beat, fainting (passing out) or near- fainting you should contact your Doctor. If you are having a medical emergency you should call 911. Contact our office (Cardiothoracic Surgery) at if you have any questions or problemsas reviewed. documented in this encounter Discharge Disposition Disposition Code Departure Means Destination Auto Discharge documented in this encounter Progress Notes * Hamlet Estevez MD - 07/07/2019 1130 EDT Images from the original note were not included. Postop On-pump aortic valve replacement (large Perceval valve), coronary artery bypass x2 (right greater saphenous vein to obtuse marginal and posterior descending coronary arteries), endoscopic right greater saphenous vein harvest on 05/22/19 SUBJECTIVE: Jose Fisher was seen in the office today. In general, he seems to be doing quite well. He has seen Keith Sanchez and Xiomy in follow up. He has started cardiac rehab in [facility]. About 3 days after he was home his heart rate was in the 30's. His beta lani was discontinued and he improved dramatically. He feels and looks a lot better. OBJECTIVE: BP 114/80 (BP Cuff Location: Left arm, Patient Position: Sitting, BP Cuff Sizes: Adult, large) Pulse 80 Temp 36.5 ??C (97.7 ??F) (Temporal) Resp 14 Ht 162.6 cm (64) Wt 72.1 kg (159 lb) SpO2 96% BMI 27.29 kg/m?? . His chest is clear to auscultation and percussion. His heartshows a regular rhythm without murmurs or rubs. His sternotomy and saphenous donor sites have healed well. Chest XRay reading today: Impression: 1. ??Postoperative radiograph with improved lung volumes and resolving areas of bibasilar atelectasis. Surgical Pathology: - ??Cardiac valve with myxoid degeneration. ASSESSMENT: I think that Jsoe Fisher has done well following his Tissue aortic valve replacement for his regurgitation and CABG for his CAD. His lasix and KCL can be stopped today. I would not change any of his current medications at the present time, which include: Current Outpatient Medications: acetaminophen (TYLENOL) 500 mg tablet aspirin 81 mg EC tablet atorvastatin (LIPITOR) 20 mg tablet zxfkjhtohyi-gnylhbjawtojw-axahdclpn alafenamide (BIKTARVY) 50-200-25 mg per tablet fluconazole (DIFLUCAN) 100 mg tablet furosemide (LASIX) 40 mg tablet potassium chloride SA (K-DUR) 10 mEq tablet tamsulosin (FLOMAX) 0.4 mg capsule No current facility-administered medications for this visit. . PLAN: 1. D/C lasix and KCL 2. Continue close follow up with Lorrie Conte and Dr. Stauffer. 3. Follow-up in this office on a PRN basis. Hamlet Estevez MD 07/07/2019 documented in this encounter Plan of Treatment Upcoming Encounters Date Type Department Care Team (Latest Contact Info) Description 05/13/2024 9:15 EDT Ancillary Procedure [facility] Cardiology [place] [address] History of aortic valve replacement; Elevated blood pressure reading 05/13/2024 11:00 EDT Office Visit [facility] Cardiology - [address] [place] [address] Jose Stauffer MD [address] [facility] [address] [place] [address] documented as of this encounter Visit Diagnoses Diagnosis Nonrheumatic aortic valve insufficiency- Primary Aortic valve disorders History of aortic valve replacement Heart valve replaced by other means Elevated blood pressure reading Elevated blood pressure reading without diagnosis of hypertension documented in this encounter Discontinued Medications Medication Sig Discontinue Reason Start Date End Da te furosemide (LASIX) 40 mg tablet Take 20 mg by mouth daily. Therapy completed 07/07/2019 documented as of this encounter Historical Medications * This list may reflect changes made after this encounter. Medication Sig Dispensed Refills Start Date End Date potassium chloride SA (K-DUR) 10 mEq tablet Take 10 mEq by mouth as needed. 03/21/2023 furosemide (LASIX) 40 mg tablet Take 20 mg by mouth daily. 07/07/2019 added in this encounter Care Teams Floatman Relationship Specialty Start Date End Date Lorrie Conte MD PCP - General 10/19/17 documented as of this encounter
--- OUTSIDE RECORDS SUMMARY | 2024-05-12 17:06 | XMS_ITS | Encounter Summary ---
Author Organization [facility] Address [address] [place] [address] Care Team Providers Care Mine Administrator Supervisor Name Role Phone Lorrie Conte MD Primary Care Provider [phone] Encounter Details Date Type Department Care Team (Late st Contact Info) Description 10/15/2019 Lab Requisition [facility] Pathology & Laboratory Medicine - [facility] [address] [place] [address] Unknown, Provider, Social History Tobacco Use Types Packs/Day Years [...] No 06/18/2019 Cognitive Status Response Date of Assess ent Because of a physical, menta l, or emotional condition, does this person have serious difficulty concentrating, remembering, or making decisions? No 06/18/2019 documented as of this encounter Plan of Treatment Upcoming Encounters Date Type Department Care Team (Latest Contact Info) Description 05/13/2024 9:15 EDT Ancillary Procedure [facility] Cardiology - [facility] [address] [facility] [place] [address] History of aortic valve replacement; Elevated blood pressure reading 05/13/2024 11:00 EDT Office Visit [facility] Cardiology - [facility] [address] [place] [address] Jose Stauffer MD [address] [place] [address] documented as of this encounter Procedures Procedure Name Priority Date/Time Associated Diagnosis Comments T CELL SUBSETS Routine 10/15/2019 10:50 EST HIV 1 RNA QUANTITATION Routine 10/15/2019 10:50 EST documented in this encounter Results * (ABNORMAL) HIV 1 RNA QUANTITATION (10/15/2019 10:50 EST) HIV 1 RNA Quant 38(H) Undetected copies/mL 10/16/2019 15:51 EST [facility] Comment:Detected Blood VENOUS BLOOD / Unknown 10/15/2019 10:50 EST 10/15/2019 15:22 EST Narrative [facility] - 10/16/2019 15:51 EST The quantification range of this assay is 20 IU/mL to 10,000,000 IU/mL. ??Testing was performed on the [employer]EL Ampliprep/ENMANUEL TaqMan HIV v2.0 ([employer] Provider Unknown CHEMISTRY & BLOOD GA S ORDERABLES [facility] [address] [place] [address] * (ABNORMAL) IMMUNODEFICIENCY PANEL (10/15/2019 10:50 EST) % CD3 68 62 - 87 % 10/16/2019 16:48 EST [facility] % CD4 30(L) 35 - 63 % 10/16/2019 16:48 EST [facility] % CD8 37(H) 10 - 35 % 10/16/2019 16:48 EST [facility] Absolute CD4 726 329-1,427 cells/uL 10/16/2019 16:48 EST [facility] Blood VENOUS BLOOD / Unknown 10/15/2019 10:50 EST 10/15/2019 15:22 EST Provider Unknown IMMUNOLOGY AND SEROL POOJA ORDERABLES Performing Organization Address City/State/[facility] Co de Phone Number [facility] [address] [place] [address] documented in this encounter Visit Diagnoses Not on filedocumented in this encounter Care Teams Mine Administrator Supervisor Relationship Specialty Start Date End Date Lorrie Conte MD PCP - General 10/19/17 documented as of this encounter
--- OUTSIDE RECORDS SUMMARY | 2024-05-12 17:06 | XMS_ITS | Encounter Summary ---
Author Organization [facility] Address [address] [place] [address] Care Team Providers Care State Historical Society Director Name Role Phone Lorrie Conte MD Primary Care Provider [phone] Reason for Visit * Reason Comments HIV Positive/AIDS Encounter Details Date Type Department Care Team (Late st Contact Info) Description 10/20/2019 10:00 EST Office Visit [facility] Infectious Disease - [address] [address] Javid Aldana, DO [address] [facility], [address] [place] [address] Asymptomatic HIV infection (HCC-CMS) (Primary [...] Dispensed Refills Start Date End Da te bictegravir-emtricitabine- tenofovir alafenamide (BIKTARVY) 50-200-25 mg per tablet Take 1 Tab by mouth daily for 30 days. 30 Tab 11 10/22/2019 11/21/2019 bictegravir-emtricitabine- tenofovir alafenamide (BIKTARVY) 50-200-25 mg per tablet Take 1 Tab by mouth daily for 30 days. 30 Tab 11 10/22/2019 10/22/2019 documented in this encounter Progress Notes * Javid Aldana, DO - 10/20/2019 1000 EST ?? Chief Complaint: HIV follow-up care Date of visit 20 October 2019 ?? HPI:??Mr.??Fisher??is a 68 y.o.??male??with history significant for newly diagnosed HIV??who presents with??follow up. ?HIV diagnosed in March 2019 by PCM with a positive 4th gen Ab/Ag test done aspart of a viral syndrome work up??.?Initial??CD4 done in Apr was 529 at 16%, HIV VL 94,797. ??Pt started on Biktarvy on 26 April with perfect adherence. ?Genotype showed no evidence of resistance. ?? On next set of labs 16 May (done due to AVR surgery ), VL down to 386 and CD4 616 at 17%. Labs from Sep 2019 show VL down to 38 and CD4 726 which is very encouraging. ?? We suspect he acquired HIV infection??in??[place] (on/about 13 Feb 2019) from a female whom he didn't know very well??and I suspect could have been a sex worker. ??Pt denies MSM. He [facility]??(confirmed by [facility]M)??and done for just primary care-routine screening. ?? Biktarvy started on 26 April,however pt noted SOB develop several days prior to starting ART. He was seen by PCM who got an echo that showed severe AV regurg and was referred to CT surgery at [facility] where on May, pt had AVR and CABG X2. Pt d/c home on May and since then, continues to have SOBwhen laying down. He is now being seen by pulmonary in [facility] and is considering going to [place] for 2nd opinion as his symptoms continue without a clear etiology being identified. ?? No fevers, chills, night sweats, nausea, vomiting or diarrhea. Perfect adherence with Biktarvy. ?? He has two daughters locally that keep an eye on him. Review of Systems: 10-point review of systems is negative except as noted in the HPI. ?? Past Medical History: BPH Acute retroviral syndrome summer 2018 ??esophageal candidiasis 2019 Tachycardia work up with holter monitor in past Thrombocytopenia: Baseline platelets range from 80-90. 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 Bilateral chronic uveitis: Seen at [facility]. DJD Severe AV regurg dx 2019 Orthopnea of unclear etiology ?? Past Surgical History:?? Knee injections for DJD. Aortic valve replacement [facility] May 2019 CABG x 2 2018? MEDICATIONS Biktarvy started 26 April 2019 ?? Allergies not on file ?? 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 Sexual:??Patient denies MSM. ??His last sexual contact prior to the one in [facility] in 2019, was in [place] around 2011. ??Patient sounds like he spent less than a week with this woman that he met in [facility]. ??He does not know anything about her history. Exercise:??Busy with yard work. Travel:??From [place]. 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 ??Only other recent travel was a trip to [facility] in January 2019, then to [place] February 2019. ??Both were vacations ?? Social History ?? Socioeconomic [...] Gets together: Not on file ? Attends gnosticism service: Not on file ? Active member [...] or immunocompromised state. ?? Physical Exam Wt 171 lbs 128/72 General: NAD, very pleasant . Pt seen with daughter. Skin: no rashes or lesions HEENT and oral exam: AT/NC. EOMI. PERRL. Sclera anicteric. Oropharnyx w/o erythema or exudates. Normal dentition.? Neck: supple, no LAD CV: RRR, no MRG, S1 + S2 normal. Pulm: CTAB, no wheezes, rales, or rhonchi Abd:??Abdomen is nontender, nondistended. We did not lay pt flat today because it always causes SOB. Ext:??No CCE Neuro: A+Ox3, CN2-12 intact, strength 5/5 globally? 25 April 2019 HIV genotype no resistance genes. ?? Assessment and Plan: ?? #) HIV - Diagnosed in??March 2019, baseline CD4 count 529 at 16% and initial HIV viral load 94,000. ??Genotype shows no resistance genes. - Prior regimens include??none - Currently on??Biktarvy started 26 April 2019. ??Sep 2019 labs show CD4 726 and VL 38 - OI prophylaxis:??NA - Compliance:??Perfect - Sexual activity:??None since [facility] January 2019 - G/C, RPR: April 2019 RPR nonreactive. ??April 2019 urine gonorrhea chlamydia negative - HBV/HCV: Hepatitis A, HCV antibody negative, hepatitis B surface antigen negative, hepatitis B core antibody negative, hepatitis B surface antibody negative, - Dental exam??normal dentition -??HLA??B 5701 negative -QuantiFERON gold -March 2019. ??Toxoplasma IgG negative, toxoplasma IgM negative,??CMV IgG positive, CMV IgM negative. Follow up with me in 6 months ?? #) Health maintenance - Cholesterol:??Per PCM - Diabetes:??Screening per PCM - Colonoscopy:??Screening colonoscopy 2018 tubular adenoma. - Immunizations:??flu fall 2018, Tdap 2012, shingles 2014, pneumovax 2016. Needs prevnar 13 at next visit with HBV and menatra ?? #)??Orthopneic dyspnea, pt still being worked up by pulm ? It has been a pleasure seeing??Mr.??Fisher??in clinic today. ?? Javid Aldana DO Pager [phone] Infectious Diseases ?? documented in this encounter Miscellaneous Notes * Addendum Note - Javid Aldana DO - 10/20/2019 1000 ESTAddended by: JAVID ALDANA on: 10/22/2019 16:16 Modules accepted: Orders * Addendum Note - Javid Aldana DO - 10/20/2019 1000 ESTAddended by: JAVID ALDANA on: 10/22/2019 16:59 Modules accepted: Orders documented in this encounter Plan of Treatment Upcoming Encounters Date Type Department Care Team (Latest Contact Info) Description 05/13/2024 9:15 EDT Ancillary Procedure [facility] - [address] [place], [place] [id number] History of aortic valve replacement; Elevated blood pressure reading 05/13/2024 11:00 EDT Office Visit [facility] - [address] [place], [place] [id number] Jose Stauffer MD [address] [place] [address] [address] [place] [address] documented as of this encounter Visit Diagnoses Diagnosis Asymptomatic HIV infection ([facility])- Primary Asymptomatic human immunodeficiency virus (HIV) infection status History of aortic valve replacement Heart valve replaced by other means Elevated blood pressure reading Elevated blood pressure reading without diagnosis of hypertension documented in this encounter Discontinued Medications Medication Sig Discontinue Reason Start Date End Da te bictegravir-emtricitabine -tenofovir alafenamide (BIKTARVY) 50-200-25 mg per tablet Take 1 Tab by mouth daily for 30 days. Availability 10/22/2019 10/22/2019 documented as of this encounter Care Teams State Historical Society Director Relationship Specialty Start Date End Date Lorrie Conte MD PCP - General 10/19/17 documented as of this encounter
--- OUTSIDE RECORDS SUMMARY | 2024-05-12 17:07 | XMS_ITS | Encounter Summary ---
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; Glaucoma suspect, both eyes; Fuchs' corneal dystrophy Social History Tobacco Use Types Packs/Day Years Used Date Smoking Tobacco: Former Cigarettes 0.3 10 0 06/14/1971 - 06/14/1981 Smokeless Tobacco: Never Alcohol Use Standard Drinks/Week Comments Yes 0 (1 standard drink = 0.6 oz pur e alcohol) Sex and Gender Information Value Date Recorded Sex Assigned at Male 01/10/2021 8:20 PM EDT Gender Identity Not on file Sexual Orientation Not on file documented as of this encounter Patient Instructions * Patient Instructions* Billy Sadler MD - 03/11/2021 1:30 PM EDT Medications: Use eye medications as instructed by Dr. Sadler during your appointment. For non eye medications not prescribed by the Ophthalmology (Eye) Clinic, please follow up with your PCP (primary care provider) for instructions. Dilation: Your eyes may have been dilated during your visit. Patients response to dilation varies and the duration of dilation can range from 4 to 24 hours. Be careful with visually demanding tasks until these effects have worn off. Driving: Wait until your vision has returned to normal baseline after your eye visit before driving. Changes in vision or eyes: Please call the eye clinic, , for any significant changes invision, new flashes or floaters or eye pain Eye safety is important: please use eye protection during any activities in which you could injury your eyes. documented in this encounter Progress Notes * Billy Sadler MD - 03/11/2021 1:30 PM EDT Encounter Diagnoses Name Primary? 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 Glaucoma suspect, both eyes Jose Fisher is a 70 y.o. 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 Was 685 um pre SK Salzmann's nodule with SK OS 02/05/21: Intact but irregular epithelial limiting vision, pain has essentially resolved. See plan below ERM OU: follow CEIOL OU: Poor vision OS despite improved corneal appearance and decreased Cpachy post SK OS. HORTENSIA is to 20/30 so likely implies ocular surface issue. Will have Dr. Nicholas OD try refraction Remote history of uveitis: quiet for many years Plan: - Follow up 3-4 wk Cristopher, 4 months Doroteo or as needed - Findings and concerns discussed with Jose and he expresses understanding. -Upon Return Epf documented in this encounter Plan of Treatment Not on file documented as of this encounter Procedures Procedure Name Priority Date/Time Associated Diagnosis Comments PACHYMETRY - OU - BOTH EYES Routine 03/11/2021 2:08 PM EDT Fuchs' corneal dystrophy documented in this encounter Results * Pachymetry - OU - Both Eyes (03/11/2021 2:08 PM EDT) Anatomical Region Laterality Modality Other Narrative 03/11/2021 2:08 PM EDT Recent Pachymetry Date Noted Right Eye Left Eye 03/11/2021 556 599 01/12/2021 556 685 12/21/2020 077 668 02/24/2015 566 583 Billy Sadler MD [facility]THALMOLOGY [facility] ORDERABLES documented in this encounter Visit Diagnoses Diagnosis Salzmann's nodular dystrophy, 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
--- OUTSIDE RECORDS SUMMARY | 2024-05-12 17:07 | XMS_ITS | Encounter Summary ---
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 Some of the changes in pachy OS likely related to Salzmann nodule Salzmann's like changes OS 02/05/21: Intact but irregular epithelial limiting vision, pain has decreased Will continue on ciloxan tid until next appt on Surgical Pathology DIAGNOSIS Left cornea, skin ??excision: - Compatible with Salzmann's nodule Electronically signed by: ?Devin PADRON, Chan Gonzalez Verified: ??02/08/2021 11:50 ??Dermatopathologist, Bone & Soft Tissue Pathologist ERM OU: follow CEIOL OU: stable follow Remote history of uveitis: quiet for many years Plan: - Follow up 3 wk or as needed - Findings and concerns discussed with Jose and he expresses understanding. 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
--- OUTSIDE RECORDS SUMMARY | 2024-05-12 17:07 | XMS_ITS | Encounter Summary ---
Author Organization [facility] [place] [address] Care Team Providers Care Risk Management Professional Name Role Phone Lorrie Conte MD Primary Care Provider [phone] Reason for Visit * Reason Onset Date Comments Medication Refill 01/08/2023 Encounter Details Date Type Department Care Team (Late st Contact Info) Description 01/08/2023 Ref[place] [address] Wolfgang Aguila MD [facility] [place] [address] Glaucoma suspect, both eyes Social History Tobacco Use Types Packs/Day Years [...] on file documented as of this encounter Plan of Treatment Not on file documented as of this encounter Visit Diagnoses Diagnosis Glaucoma suspect, both eyes Preglaucoma, unspecified documented in this encounter Care Teams Risk Management Professional Relationship Specialty Start Date End Date Lorrie Conte MD [address] [place] [address] PCP - General 08/09/10 documented as of this encounter
--- OUTSIDE RECORDS SUMMARY | 2024-05-12 17:07 | XMS_ITS | Encounter Summary ---
Author Organization [facility] [place] [address] Care Team Providers Care Display Carver Name Role Phone Lorrie Conte MD Primary Care Provider [phone] Reason for Visit * Reason Comments Eye Problem PBK/Fuchs Encounter Details Date Type Department Care Team (Late st Contact Info) Description 05/12/2021 2:00 PM EDT [place] [address] [facility] [place] [address] Glaucoma suspect, both eyes; Fuchs' corneal dystrophy; Epiretinal membrane, both eyes; Salzmann's nodular dystrophy, left SK 02/05/21 Social [...] * Patient Instructions* Billy Sadler MD - 05/12/2021 2:00 PM EDT Medications: Use eye medications as [...] Progress Notes * Billy Sadler MD - 05/12/2021 2:00 PM EDT Encounter Diagnoses Name Primary? Glaucoma suspect, both eyes ??? Fuchs' corneal dystrophy ??? Epiretinal membrane, both eyes ??? 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 Optic nerve OS appears more pale than OD, may be due to glaucoma. Will get formal glaucoma consultaiton PBK/Fuchs- Cpachy improved to 556/599 since SK OS. Was 685 um pre SK but can't improve with vision. Wondering of ON damage plays a role in decreased vision given subjective APD OS and pallor OS compared to OD. Salzmann's nodule with SK OS 02/05/21:well healed. Some SE scarring ERM OU: follow CEIOL OU: Hx of CEIOL 40 years ago ~1980s performed by in Dr. Kearney in [facility] with suture supporting lens. Poor vision OS despite improved corneal appearance and decreased Cpachy post SK OS. HORTENSIA is to 20/30so likely implies good retinal potential but also has APD OS subjectively Dr. Nicholas was unable to improve refraction. Remote history of uveitis: quiet for many years Today Long discussion about possible reasons for poor vision OS. Persistent high IOP and CEIOL OU early suggests that glaucoma is likely. Next step is to consult with glaucoma service to better control IOP and assess and can consider corneal transplant with [facility] or Dr. Soares pending glaucoma assessment Plan: - Follow 4-6 weeks with Glaucoma service for evaluation - Findings and concerns discussed with Jose and he expresses understanding. -Upon Return Epf documented in this encounter Plan of Treatment Not on file documented as of this encounter Visit Diagnoses Diagnosis Glaucoma suspect, both eyes Preglaucoma, unspecified Fuchs' corneal dystrophy Endothelial corneal dystrophy Epiretinal membrane, both eyes Macular puckering of retina Salzmann's nodular dystrophy, left SK 02/05/21 documented in this encounter Care Teams Display Carver Relationship Specialty Start Date End Date Lorrie Conte MD [address] [facility] [address] [place] [address] PCP - General 08/09/10 documented as of this encounter
--- OUTSIDE RECORDS SUMMARY | 2024-05-12 17:07 | XMS_ITS | Encounter Summary ---
Author Organization [facility] [place] [address] Care Team Providers Care Prosthetic Assistant Name Role Phone Lorrie Conte MD Primary Care Provider [phone] Reason for Visit * Reason Comments Eye Problem Encounter Details Date Type Department Care Team (Late st Contact Info) Description 02/11/2021 2:00 PM EDT [place] [address] Billy Sadler MD [facility] [place] [address] Salzmann's nodular dystrophy, left SK 02/05/21 Social [...] * Patient Instructions* Billy Sadler MD - 02/11/2021 2:00 PM EDT Medications: Use eye medications [...] Progress Notes * Billy Sadler MD - 02/11/2021 2:00 PM EDT Encounter Diagnosis Name Primary? 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 Some of the changes in pachy OS likely related to Salzmann nodule Salzmann's like changes OS 02/05/21: Uncomfortable in BCL. - removed, continue Ciloxan qid OS, Fu next week. Epithelium is still loose and needs more time to heal. No signs of infection Path pending AT prn, cold compresses ERM OU: follow CEIOL OU: stable follow Remote history of uveitis: quiet for many years Plan: - Follow up 1 wk or as needed - Findings and concerns discussed with Jose and he expresses understanding. -Upon Return Epf documented in this encounter Plan of Treatment Not on file documented as of this encounter Visit Diagnoses Diagnosis Salzmann's nodular dystrophy, left SK 02/05/21 documented in this encounter Care Teams Prosthetic Assistant Relationship Specialty Start Date End Date Lorrie Conet MD [address] [place] [address] PCP - General 08/09/10 documented as of this encounter
--- OUTSIDE RECORDS SUMMARY | 2024-05-12 17:07 | XMS_ITS | Encounter Summary ---
Author Organization [facility] Address [address] [place] [address] Care Team Providers Care Indoor Landscaper/Gardener Name Role Phone Lorrie Conte MD Primary Care Provider [phone] Reason for Visit * Reason Onset Date Comments Referral Request 05/16/2019 Inpatient Refer ral Encounter Details Date Type Department Care Team (Late st Contact Info) Description 05/16/2019 Telephone [facility] Cardiothoracic [facility] [address] [place] [address] Hamlet Estevez MD Referral Request (Inpatient Referral) Social History Tobacco Use Types Packs/Day Years Used Date Smoking Tobacco: Former Smokeless Tobacco: Never Sex and Gender Information Value Date Recorded [...] encounter Miscellaneous Notes * Telephone Encounter - Radha Gotti - 05/21/[address] Estevez, he has now decided that he may do a Perceval valve. Email sent to OR Scheduling tochange OR Booking back to the way in originally was. * Telephone Encounter - Radha Gotti - 05/21/[address] Estevez, he will not do a Perceval valve for this patient. Email to OR Scheduling to updateOR booking. Await confirmation. * Telephone Encounter - Radha Gotti - 05/20/2019 1442 EDT Per Jessy Hernandez NP adding CABG x2, Endovein (No DELGADO) to OR Schedule for patient on , 05/22/19, 1st case with Dr. Estevez. * Telephone Encounter - Radha Gotti - 05/16/2019 1400 EDT Inpatient referral called into our team directly by Dr. Gordon. Per Dr. Estevez, I am tentatively scheduling patient for AVR (Tissue/Perceval) on , 05/22/19, 1st case. Dr. Estevez will speak with Dr. Stauffer and advise final plan. Routing to CT Surgery RN. documented in this encounter Plan of Treatment Upcoming Encounters Date Type Department Care Team (Latest Contact Info) Description 05/13/2024 9:15 EDT Ancillary Procedure [facility] Cardiology [place] [address] History of aortic valve replacement; Elevated blood pressure reading 05/13/2024 11:00 EDT Office Visit [facility] Cardiology - [place] [address] [place] [address] Jose Stauffer MD [address] [facility] [address] [place] [address] documented as of this encounter Visit Diagnoses Not on filedocumented in this encounter Care Teams Indoor Landscaper/Gardener Relationship Specialty Start Date End Date Lorrie Conte MD PCP - General 10/19/17 documented as of this encounter
--- OUTSIDE RECORDS SUMMARY | 2024-05-12 17:07 | XMS_ITS | Encounter Summary ---
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 Jose Fisher is a 70 y.o. 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 Was 32, OCT of nerve is benign but continue drops PBK/Fuchs- Follow. Some of the changes in pachy OS likely related to Salzmann nodule Salzmann's like changes OS: He definitely has edema OS but there is an area which looks like there is some degree of Salzmann's like changes. Had discussed previously. He initially declined but now would like to proceed: r/b/a discussed. He understands that this is not the only reason for his vision being down and may still end up needing a corneal transplant. Healing time and issues also reviewed. He elects SK and consent was signed andprocedure performed. Ciloxan qid OS until fu. BCL placed, fu next week ERM OU: follow CEIOL OU: stable follow Remote history of uveitis: quiet for many years Plan: - Follow up 1 wk or as needed - Findings and concerns discussed with Jose and he expresses understanding. -Upon Return Epf and MR. 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 Location: 4B The signing pathologist has (i) examined the relevant preparation(s) for the specimen(s) and (ii) rendered or confirmed the diagnosis(es). . ?Surgical Pathology DIAGNOSIS Left cornea, skin ??excision: - Compatible with Salzmann's nodule Electronically signed by: ?Chan Beltran MD Verified: ??02/08/2021 11:50 ??Dermatopatholo gist, Bone & Soft Tissue Pathologist Performed at: ??-[facility]. [facility], [place], [place] SPECIMEN(S) SUBMITTED A - left cornea, excision (1) CLINICAL INFORMATION Salzmann's nodule left eye SPECIMEN PROCESSING A - Labeled/Fixative : Left cornea, formalin. Quantity/Size: ??Single, 0.7 x 0.5 x 0.1 cm. Tissue Description: Irregular fragment of nearly translucent tissue. Sections/Process ing: Inked, trisected and entirely submitted in 1 cassette labeled A1. ??buzz 02/08/2021 11:50 AM EDT [facility] SPECIMEN FROM SKIN / Unknown 02/05/2021 9:23 AM EDT 02/05/2021 9:23 AM EDT Billy Sadler MD PATHOLOGY/CYTOLOGY O RDERALUIS [facility] [place] [address] * Superficial Keratectomy - OS - Left Eye (02/05/2021 9:22 AM EDT) Anatomical Region Laterality Modality Other Narrative 02/05/2021 9:22 AM EDT ? Ophthalmology Minor Procedure Op Note Pre-op Diagnosis: ??Salzmann's Nodule , left eye Post-op Diagnosis: Same Procedure: ??Superficial Keratectomy Anesthesia: ??Topical tetracaine Surgeon: ?? Billy Sadler MD Complications: ??None Procedure: ??The operative eye was marked. ??Consent and patient identification were confirmed. Minor procedure room, patient supine. Betadine prep to adnexa and drop in cul-de-sac. Topical tetracaine drops. Sterile drape, isolating lashes from surgical field. Lid speculum inserted. Tooke knife used to remove corneal epithelium with nodules and fibrosis in central cornea, leaving 1-2mm rim of intact epithelium. Smooth underlying Mathias's layer left intact. Bandage contact lens placed (Acuvue 2/8.7/14.0/-0.50). Ciloxan drop placed. Speculum and drapes removed. Patient sent home with drops and instructions. Follow-up visit within 1 week. - Caution with driving during recovery -Ciloxan qid until follow up Billy Sadler MD OPHTHALMOLOGY SERVIC ES ORDERABLES * Specimen to Pathology (02/05/2021 8:54 AM EDT) AP Specimen 02/05/2021 8:54 AM EDT 02/05/2021 8:54 AM EDT Narrative [facility] - 02/05/2021 8:54 AM EDT Specimen requisition ordered. 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
--- OUTSIDE RECORDS SUMMARY | 2024-05-12 17:07 | XMS_ITS | Encounter Summary ---
Author Organization [facility] Address [facility] [place] [address] Care Team Providers Care Fruit Inspector Name Role Phone Lorrie Conte MD Primary Care Provider [phone] Reason for Visit * Reason Comments Fuch's Dystrophy 6-MON F/U FOR fUCH'S DYSTROPHY Encounter Details Date Type Department Care Team (Late st Contact Info) Description 08/27/2015 2:30 PM EST Office [place] [address] Billy Sadler MD [facility] [place] [address] Fuch's endothelial dystrophy; Status post cataract extraction and insertion of intraocular lens, unspecified laterality Social History Tobacco Use Types Packs/Day Years Used Date Smoking Tobacco: Former Cigarettes 0.3 10 0 06/14/1971 - 06/14/1981 Alcohol Use Standard Drinks/Week Comments Yes 0 (1 standard drink = 0.6 oz pur e alcohol) Sex and Gender Information Value Date Recorded Sex Assigned at Male 01/10/2021 8:20 PM EDT Gender Identity Not on file Sexual Orientation Not on file documented as of this encounter Patient Instructions * Patient Instructions* Billy Sadler MD - 08/27/2015 4:17 PM EST Use eye medications as instructed by Dr. Sadler during your appointment. For non eye medications not prescribed by the Ophthalmology (Eye) Clinic, please follow up with your PCP (primary care provider) for instructions. Please call the eye clinic, [phone], for any significant changes in vision, new flashes or floaters or eye pain documented in this encounter Progress Notes * Billy Sadler MD - 08/27/2015 4:11 PM EST Encounter Diagnoses Name Primary? Fuch's endothelial dystrophy ??? Status post cataract extraction and insertion of intraocular lens, unspecified laterality Jose Fisher is a 65 y.o. with PBK/Fuchs- stable in terms of vision and pachy since 2011. Will try glasses rx first as he gets to 20/25 OU Salzmann's like changes OS: He definitely has edema OS but there is an area which looks like there is some degree of Salzmann's like changes. Discussed possible SK. He declines for now but knows its an option. ERM OU: follow CEIOL OU: stable follow Plan: - MR given - Follow up 6 months or as needed - Findings and concerns discussed with Jose and he expresses understanding. -Upon Return CEE documented in this encounter Plan of Treatment Not on file documented as of this encounter Procedures Procedure Name Priority Date/Time Associated Diagnosis Comments PACHYMETRY - OU - BOTH EYES Routine 08/27/2015 3:53 PM EST Fuch's endothelial dystrophy documented in this encounter Results * PACHYMETRY - OU - BOTH EYES (08/27/2015 3:53 PM EST) Anatomical Region Laterality Modality Other Narrative 08/27/2015 3:54 PM EST Pachymetry (02/24/2015) ?Right Left Thickness 562 651 OS 660 OD 555 08/27/15 Billy Sadler MD OPHTHALMOLOGY SERVIC ES ORDERABLES documented in this encounter Visit Diagnoses Diagnosis Fuch's endothelial dystrophy Endothelial corneal dystrophy Status post cataract extraction and insertion of intraocular lens, unspecified laterality documented in this encounter Care Teams Fruit Inspector Relationship Specialty Start Date End Date Lorrie Conte MD [address] [place] [address] PCP - General 08/09/10 documented as of this encounter
--- OUTSIDE RECORDS SUMMARY | 2024-05-12 17:07 | XMS_ITS | Encounter Summary ---
Author Organization [facility] [place] [address] Care Team Providers Care Market Research Interviewer Name Role Phone Lorrie Conte MD Primary Care Provider [phone] Reason for Visit * Reason Comments Glaucoma Suspect Encounter Details Date Type Department Care Team (Late st Contact Info) Description 08/02/2023 9:30 AM EST Office [place] [address] Wolfgang Aguila MD [facility] [place] [address] Glaucoma suspect, both eyes Social History Tobacco [...] on file documented as of this encounter Progress Notes * Wolfgang Aguila MD - 08/02/2023 9:30 AM EST Glaucoma suspect OU: IOP at [facility] OU today, HVF continues normal OD, improved OS but DSAEK in interim with improved acuity. Plan: Continue brimonidine and timolol OU. Had been on latanoprost in past but stopped last year. No need to resume at this time. documented in this encounter Plan of Treatment Not on file documented as of this encounter Procedures Procedure Name Priority Date/Time Associated Diagnosis Comments AUTOMATED VISUAL FIELD - EXTENDED - OU- BOTH EYES Routine 08/02/2023 11:23 AM EST Glaucoma suspect, both eyes documented in this encounter Results * Automated Visual Field - Extended - OU - Both Eyes (08/02/2023 11:23 AM EST) Anatomical Region Laterality Modality Other Narrative 08/02/2023 11:23 AM EST Right Eye Threshold was 24-2. Strategy was JARET. Left Eye Threshold was 24-2. Strategy was JARET. Notes Visual Field Results Type of VF: ??HVF 24-2 Indication: ??Glaucoma suspect Reliability: ??Good OD, low OS Glaucoma Hemifield Test (GHT) OD: within normal limits OS: outside normal limits Visual Function Index (VFI) OD: 99 % OS: 90 % MD OD: 0.2 dB ??PSD OD: 1.52 dB MD OS: -5.44 dB ??PSD OS: 3.58 dB Interpretation: Full OD/ nasal defects OS Wolfgang Aguila MD OPHTHALMOLOGY SERVIC ES ORDERABLES documented in this encounter Visit Diagnoses Diagnosis Glaucoma suspect, both eyes Preglaucoma, unspecified documented in this encounter Care Teams Market Research Interviewer Relationship Specialty Start Date End Date Lorrie Conte MD [address] [place] [address] PCP - General 08/09/10 documented as of this encounter
--- OUTSIDE RECORDS SUMMARY | 2024-05-12 17:07 | XMS_ITS | Encounter Summary ---
Author Organization [facility] [place] [address] Care Team Providers Care Loader Operator Supervisor Name Role Phone Lorrie Conte MD Primary Care Provider Reason for Visit * Reason Comments Medication Refill Encounter Details Date Type Department Care Team (Late st Contact Info) Description 09/18/2022 Ref[place] [address] Wolfgang Aguila MD [facility] [place] [address] Glaucoma suspect, both eyes Social History Tobacco [...] unspecified documented in this encounter Care Teams Loader Operator Supervisor Relationship Specialty Start Date End Date Lorrie Conte MD [address] [place] [address] PCP - General 08/09/10 documented as of this encounter
--- OUTSIDE RECORDS SUMMARY | 2024-05-12 17:07 | XMS_ITS | Encounter Summary ---
Author Organization [facility] Address [address] [place] [address] Care Team Providers Care Product Designer Name Role Phone Lorrie Conte MD Primary Care Provider [phone] Reason for Visit * Reason Comments Follow-up Encounter Details Date Type Department Care Team (Late st Contact Info) Description 05/05/2019 12:00 EDT Office Visit [facility] Infectious Disease - [address] [address] Javid Parker DO [address] [facility] [place] [address] Symptomatic HIV infection (HCC-CMS) (Primary Dx) Social History Tobacco Use Types Packs/Day Years Used Date Smoking Tobacco: Never Assessed Sex and Gender Information Value Date Recorded Sex Assigned at Not on file Gender Identity Not on file Sexual Orientation Not on file documented as of this encounter Progress Notes * Javid Parker DO - 05/05/2019 1200 EDT INFECTIOUS DISEASE CLINIC VISIT Patient name: Jose Fisher Today's date: 05/05/2019 Chief Complaint: HIV follow-up care HPI: Mr. Fisher is a 68 y.o. [...] adherence. Genotype showed no evidence of resistance. 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 Pt states his last sexual contact besides the one more recent in [facility] (on/about 13 February) was about 6 years ago in [place]. His contact in [facility] was with a female whom he didn't know very well and I suspect could have been a sex worker. Pt denies MSM. He states his last HIV ab neg was int [facility] system about 8 years ago (confirmed by PCM) and done for just primary care-routine screening. Pt noted symptoms of what appears to be his seroconversion syndrome with fevers, chills, diarrhea, night sweats, thrush and global malaise starting in the February time frame. He was seen by ER and PCM several times in February/March and work up lead to dx of HIV after patient was noted to have thrush. Since starting Biktarvy on 26 April, pt globally feels better. His thrush has resolved and his energy is returning. He does note symptoms of orthotic dyspnea for past 10 days (a little before the time he started his ART) which is new for him. Some nausea but no vomiting. No headache or rash. His baseline DJD type symptoms seem to be worsening and pt attributes this to inactivity. Review of Systems: 10-point review of systems is negative except as noted in the HPI. Past Medical History: BPH Acute retroviral syndrome summer 2018 esophageal candidiasis 2019 Tachycardia work up with holter monitor in past Thrombocytopenia: Baseline platelets range from 80-90. 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 DJD Past Surgical History: Knee injections for DJD. 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 Sexual: Patient denies MSM. His last sexual contact prior to the one in [facility], was in [place] around 2011. Patient sounds like he spent less than a week with this woman that he met in [facility]. He does not know anything about her history. Exercise: Busy with yard work. Travel: From [place]. 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 Only other recent travel was a trip to [facility] in January 2019, then to [place] in February 2019. Both were vacations Social History Socioeconomic History ??? Marital status: Single Spouse name: Not on file ??? Number of children: Not on file ??? Years of education: Not on file ??? Highest education level: Not on file Occupational History ??? Not on file Social Needs ??? Financial resource strain: Not on file ??? Food insecurity: Worry: Not on file Inability: Not on file ??? Transportation needs: Medical: Not on file Non-medical: Not on file Tobacco Use ??? Smoking status: Not on file Substance and Sexual Activity ??? Alcohol use: Not on file ??? Drug use: Not on file ??? Sexual activity: Not on file Lifestyle ??? Physical activity: Days per week: Not on file Minutes per session: Not on file ??? Stress: Not on file Relationships ??? Social connections: Talks on phone: Not on file Gets together: Not on file Attends zoroastrianism service: Not on file Active member of club or organization: Not on file Attends meetings of clubs or organizations: Not on file Relationship status: Not on file ??? Intimate partner violence: Fear of current or ex partner: Not on file Emotionally abused: Not on file Physically abused: Not on file Forced sexual activity: Not on file Other Topics Concern ??? Not on file Social History Narrative ??? Not on file Family history: Pertinent for mother with Alzheimer's, father with liver cancer. He has 3 healthy daughters. The Family History was reviewed and is non-contributory for a past history of infection or immunocompromised state. Physical Exam Weight 172 pounds. Blood pressure 138/76 General: NAD at rest but notes orthotic dyspnea when laying flat. Skin: no rashes or lesions HEENT and oral exam: AT/NC. EOMI. PERRL. Sclera anicteric. Oropharnyx w/o erythema or exudates. Normal dentition. Neck: supple, no LAD CV: RRR, no MRG, S1 + S2 normal Pulm: CTAB, no wheezes, rales, or rhonchi Abd: Unable to lie flat due to shortness of breath. Patient seems to have an increased abdominal girth, difficult to tell if there is organomegaly. Abdomen is nontender, nondistended Ext: +1 lower extremity pitting edema bilateral Neuro: A+Ox3, CN2-12 intact, strength 5/5 globally 23 April chest x-ray showing bibasilar atelectasis. 25 April HIV genotype no resistance genes. 09 April: Creatinine 1.11, AST 54, ALT 64, alk phos 97, BBC 5.38, hematocrit 43.6. Platelets 182. Hemoglobin A1c 6.1 C. difficile PCR negative Giardia antigen negative Cryptosporidium antigen negative Assessment and Plan: #) HIV - Diagnosed in March 2019, baseline CD4 count 529 at 16%. HIV viral load 94,000. Genotype shows no resistance genes. - Prior regimens include none - Currently on Biktarvy started 26 April 2019. The plan will be for toxicity labs next week, then CD4 count and a viral load in mid May. Would like to see in follow-up in May to review both labs and his dyspnea on exertion work-up - OI prophylaxis: I think it is okay for none for now as CD4 percentage is greater than 14. However, with history of thrush, if we cannot get the CD4 percentage count to come up rapidly, will start Bactrim at his next visit for PCP prophylaxis. - Compliance: Perfect - Sexual activity: None since [facility] January 2019 - G/C, RPR: April [...] negative, CMV IgG positive, CMV IgM negative. #) Health maintenance - Cholesterol: Per PCM - Diabetes: Screening per PCM - Colonoscopy: Screening colonoscopy 2018 tubular adenoma. - Immunizations: No records available, for next visit, will try to get vaccine records from #) Orthopneic dyspnea. Patient states this is a new complaint. He relates to having a hard time getting comfortable when he is laying flat to sleep at night due to shortness of breath. His exam showshis lung signs are clear to auscultation bilateral. He had a chest x-ray done for these complaints on 23 April which was read as bibasilar atelectasis. His exam shows bilateral +1 lower extremity pitting edema. Case discussed with his primary care provider, Dr. Macias, who saw patient earlier today and is ordered an abdominal ultrasound. His PCM will also order an echocardiogram and his last echo was in 2017 showing an EF of 55% so we will be able to compare. Based on his body habitus, I am alittle concerned about organomegaly as well. Symptoms started prior to initiation of ART. However, there may be a component of IRIS (if there is organomegaly) invovled as well. Greatly appreciate PCM's assistance in his work-up. # Thrush: Much improved with fluconazole, patient will have 1 more week. It has been a pleasure seeing Mr. Fisher in clinic today. Javid Parker DO Pager [phone] Infectious Diseases Currently employed: No Adherence counseling: Yes Linguistic services: No Patient with HIV (-) partner: Unknown HIV (-) partner tested within the last 12 months: No Partner notification discussed: Yes Social History Social History Tobacco Use Smoking Status Not on file Smoking cessation discussed: No Seen by dentist in the past [...] Info) Description 05/13/2024 9:15 EDT Ancillary Procedure [facility] Cardiology - [facility] [place] [place] [address] History of aortic valve replacement; Elevated blood pressure reading 05/13/2024 11:00 EDT Office Visit [facility] Cardiology - [facility] [place] [address] Jose Stauffer MD [address] [facility] [address] [place] [address] documented as of this encounter Visit Diagnoses Diagnosis Symptomatic HIV infection (HCC-CMS)- Primary Human immunodeficiency virus [HIV] disease History of aortic valve replacement Heart valve replaced by other means Elevated blood pressure reading Elevated blood pressure reading without diagnosis of hypertension documented in this encounter Care Teams Product Designer Relationship Specialty Start Date End Date Lorrie Conte MD PCP - General 10/19/17 documented as of this encounter
--- OUTSIDE RECORDS SUMMARY | 2024-05-12 17:07 | XMS_ITS | Encounter Summary ---
Author Organization [facility] [place] [address] Care Team Providers Care Systems Manager Name Role Phone Lorrie Conte MD Primary Care Provider [phone] Encounter Details Date Type Department Care Team (Latest Contact Info) Description 05/06/2024 Travel Social History Tobacco Use Types Packs/Day Years [...] on filedocumented in this encounter Care Teams Systems Manager Relationship Specialty Start Date End Date Lorrie Conte MD [address] [place] [address] PCP - General 08/09/10 documented as of this encounter
--- OUTSIDE RECORDS SUMMARY | 2024-05-12 17:07 | XMS_ITS | Encounter Summary ---
Author Organization [facility] [place] [address] Care Team Providers Care Cycle Director Name Role Phone Lorrie Conte MD Primary Care Provider [phone] Reason for Visit * Reason Comments Medication Refill Encounter Details Date Type Department Care Team (Late st Contact Info) Description 02/29/2024 [place] [address] Wolfgang Aguila MD [facility] [place] [address] Glaucoma suspect, both eyes Social History Tobacco [...] unspecified documented in this encounter Care Teams Cycle Director Relationship Specialty Start Date End Date Lorrie Conte MD [address] [place] [address] PCP - General 08/09/10 documented as of this encounter
--- OUTSIDE RECORDS SUMMARY | 2024-05-12 17:07 | XMS_ITS | Encounter Summary ---
[facility] [place] [address] Care Team Providers Care Political Researcher Name Role Phone Lorrie Conte MD Primary Care Provider [phone] Reason for Visit * Reason Comments Fuch's Dystrophy Encounter Details Date Type Department Care Team (Late st Contact Info) Description 01/12/2021 1:30 PM EDT [place] [address] Billy Sadler MD [facility] [place] [address] [place] [address] Fuchs' corneal dystrophy; Status post cataract extraction and insertion of intraocular lens, unspecified laterality; Glaucoma suspect, both eyes; Salzmann's nodular dystrophy, left; Blurry vision, left eye Social History Tobacco Use Types [...] * Patient Instructions* Billy Sadler MD - 01/12/2021 1:30 PM EDT Medications: Use eye medications [...] Progress Notes * Billy Sadler MD - 01/12/2021 1:30 PM EDT Encounter Diagnoses Name Primary? Fuchs' corneal dystrophy ??? Status post cataract extraction and insertion of intraocular lens, unspecified laterality Jose Fisher is a 70 y.o. 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 Was 32/22, OCT of nerve is benign but continue [...] many years Plan: - Follow up 1 months for SK or as needed - Findings and concerns discussed with Jose and he expresses understanding. -Upon Return Epf, + ant seg OCT of OS cornea, and glaucoma OCT OU documented in this encounter Plan of Treatment Not on file documented as of this encounter Procedures Procedure Name Priority Date/Time Associated Diagnosis Comments OCT RETINA - OU - BOTH EYES Routine 01/12/2021 2:57 PM EDT Blurry vision, left eye OCT ANTERIOR SEGMENT - OS - LEFT EYE Routine 01/12/2021 2:54 PM EDT Salzmann's nodular dystrophy, left OCT OPTIC NERVE - OU - BOTH EYES Routine 01/12/2021 2:53 PM EDT Glaucoma suspect, both eyes PACHYMETRY - OU - BOTH EYES Routine 01/12/2021 2:25 PM EDT Fuchs' corneal dystrophy documented in this encounter Results * OCT Retina - OU - Both Eyes (01/12/2021 2:57 PM EDT) Anatomical Region Laterality Modality Other Narrative 01/12/2021 2:57 PM EDT Indication: Evaluation of possible macular pathology OD: nl foveal contour with center = 203 microns OS: nl foveal contour, possible mild ERM with center = 200 microns Impression: as noted above Billy Sadler MD OPHTHALMOLOGY SERVIC ES ORDERABLES * OCT Anterior Segment - OS - Left Eye (01/12/2021 2:54 PM EDT) Anatomical Region Laterality Modality Other Narrative 01/12/2021 2:54 PM EDT Sub epithelial thickening mostly anterior to Mathias's OS, not much to suggest edema Billy Sadler MD OPHTHALMOLOGY SERVIC ES ORDERABLES * Oct Optic Nerve - OU - Both Eyes (01/12/2021 2:53 PM EDT) Anatomical Region Laterality Modality Other Narrative 01/12/2021 2:53 PM EDT [place] [facility] OCT OD: ??G= 101, classification = wnl OS: ??G= 97, classification = wnl Implication: wnl Billy Sadler MD OPHTHALMOLOGY SERVIC ES ORDERABLES * Pachymetry - OU - Both Eyes (01/12/2021 2:25 PM EDT) Anatomical Region Laterality Modality Other Narrative 01/12/2021 2:25 PM EDT Recent Pachymetry Date Noted Right Eye Left Eye 01/12/2021 [id number] 12/21/[phone] 02/24/[phone] 06/14/[phone] Billy Sadler MD OPHTHALMOLOGY SERVIC ES ORDERABLES documented in this encounter Visit Diagnoses Diagnosis Fuchs' corneal dystrophy Endothelial corneal dystrophy Status post cataract extraction and insertion of intraocular lens, unspecified laterality Glaucoma suspect, both eyes Preglaucoma, unspecified Salzmann's nodular dystrophy, left Blurry vision, left eye Other specified visual disturbances documented in this encounter Care Teams Political Researcher Relationship Specialty Start Date End Date Lorrie Conte MD [address] [place] [address] PCP - General 08/09/10 documented as of this encounter
--- OUTSIDE RECORDS SUMMARY | 2024-05-12 17:07 | XMS_ITS | Encounter Summary ---
Author Organization [facility] [address] Care Team Providers Care Medicinal Chemist Name Role Phone Lorrie Conte MD Primary Care Provider [phone] Encounter Details Date Type Department Care Team (Latest Contact Info) Description 10/18/2022 Travel Social History Tobacco Use Types Packs/Day [...] on filedocumented in this encounter Care Teams Medicinal Chemist Relationship Specialty Start Date End Date Lorrie Conte MD [address] [place] [address] PCP - General 08/09/10 documented as of this encounter
--- OUTSIDE RECORDS SUMMARY | 2024-05-12 17:07 | XMS_ITS ---
Author Organization [facility] Address [address] [place] [address] Care Team Providers Care Clinical Studies Specialist Name Role Phone Lorrie Conte MD Primary Care Provider [phone] HIV Status:Enrolled (Active) Start date:08/11/2022 Enrollment date:08/11/2022 Current support & services provided:Clinical Management, Refill Management Linked medications:bictegrav/emtricit/tenofov ala (Active) Linked problems:HIV (human immunodeficiency virus infection) ([facility]) (Active) Case Team Name Relationship Phone Long Allan [facility] (Responsible Staff) Continued Care and Services Coordination
--- OUTSIDE RECORDS SUMMARY | 2024-05-12 17:07 | XMS_ITS | Clinical Summary ---
Author Organization [facility] Address [facility] [place] [address] Care Team Providers Care Volunteer Coordinator Name Role Phone Lorrie Conte MD Primary Care Provider Allergies No known active allergies Medications Medication Sig Dispensed Refills Start Date End Date Status aspirin EC 81 mg Tablet, Delayed Release (E.C.) Take 81 mg by mouth daily. Active ukrgmvhjr-mtlaxgpc-ji nofov ala (Biktarvy) 50-200-25 mg Tablet TAKE ONE TABLET BY MOUTH ONCE DAILY 10/06/2020 Active atorvastatin (Lipitor) 20 mg Tablet Take 20 mg by mouth. Active melatonin 5 mg Tablet Take 5 mg by mouth. Active tamsulosin (Flomax) 0.4 mg Capsule Take 1 capsule by mouth daily. 90 tablet 03/11/2021 Active brimonidine (Alphagan) 0.2 % DropsIndications:Glau coma suspect, both eyes Place 1 drop into both eyes 2 times daily. 10 mL 11 09/19/2022 Active prednisoLONE acetate (Pred-Forte) 1 % Drops, Suspension Place 1 drop into the left eye 2 times daily. Active timoloL (Timoptic) 0.5 % DropsIndications:Glau coma suspect, both eyes Place 1 drop into both eyes 2 times daily. 10 mL 11 03/03/2024 Active Active Problems Problem Noted Date Diagnosed Date Glaucoma suspect, both eyes 01/12/2021 Salzmann's nodular dystrophy, left SK 02/05/21 Health care maintenance 01/24/2018 Fuchs' corneal dystrophy 06/14/2011 Status post cataract extract ion and insertion of intraocular lens OU Christel 06/14/2011 Epiretinal membrane, both eyes 06/14/2011 Encounters Date Type Department Care Team Description 05/06/2024 12:45 PM EDT Office [place] [address] Wolfgang Aguila MD Glaucoma suspect, both eyes 05/06/2024 Travel 05/05/2024 Travel 02/29/2024 Refill Ophthalmology at [facility] [place] [address] Wolfgang Aguila MD Glaucoma suspect, both eyes from Last 3 Months Immunizations Name Administration Dates Next Due Hepatitis A, Unspecified Formulation 12/27/2017 Influenza Vaccine, Whole 07/17/2006,08/08/2005 Typhoid Live, Oral 12/27/2017 Family History Medical History Relation Comments Cancer Father Diabetes Father Diabetes Mother Glaucoma Neg Hx Macular Degeneration Neg Hx Retinal Detachment Neg Hx Relation Status Comments Father Mother Social History [...] on file Sexual Orientation Not on file Plan of Treatment Health Maintenance Due Date Last Done Comments CT Colonography 1950 Colonoscopy 1950 Colorectal Cancer Screening 1950 FIT DNA 1950 FIT 1950 Sigmoidoscopy (10 year) with FIT yearly 1950 Sigmoidoscopy 1950 Hepatitis C Screening 1968 Tdap adult 1969 Tetanus vaccine 1969 Zoster vaccine (1 of 2) 2000 Advance Directive 2005 AAA Screen 2015 Pneumoccocal Vaccine: 65+ (1 of 1 - PCV) 2015 Covid-19 Vaccine (3 - season) 2023, 08/22/2022 Influenza (Flu) vaccine (1 o f 1 - Influenza standard series) 05/18/2024 07/17/2006, 08/08/2005 Procedures Procedure Name Priority Date/Time Associated Diagnosis Comments OCT OPTIC NERVE - OU - BOTH EYES Routine 05/06/2024 1:44 PM EDT Glaucoma suspect, both eyes from Last 3 Months Results * Oct Optic Nerve - OU - Both Eyes (05/06/2024 1:44 PM EDT) Anatomical Region Laterality Modality Other Narrative 05/06/2024 1:44 PM EDT Right Eye Quality was good. Left Eye Quality was borderline. Notes G = 99/90 Quadrants: OD- all wnl OS- all wnl Interpretation: ??Normal nerves OU Wolfgang Aguila MD OPHTHALMOLOGY SERVIC ES ORDERABLES from Last 3 Months Care Teams Volunteer Coordinator Relationship Specialty Start Date End Date Lorrie Conte MD [address] [place] [address] PCP - General 08/09/10
--- OUTSIDE RECORDS SUMMARY | 2024-05-12 17:07 | XMS_ITS | Encounter Summary ---
Author Organization [facility] [place] [address] Care Team Providers Care Filler Wiper Name Role Phone Lorrie Conte MD Primary Care Provider [phone] Reason for Visit * Reason Comments Glaucoma Suspect OU Encounter Details Date Type Department Care Team (Late st Contact Info) Description 05/06/2024 12:45 PM EDT Office [place] [address] Wolfgang Aguila MD [facility] [address] Glaucoma suspect, both eyes Social History Tobacco [...] Progress Notes * Wolfgang Aguila MD - 05/06/2024 12:45 PM EDT Glaucoma suspect OU: IOP continues at target OU, OCT normal and stable OU. DSAEK OS: Improving acuity, now off topical steroid. Plan: As seeing Dr. Soto a few times a year will extend visit with me to yearly. Will return sooner if IOP elevates above normal range. Dilation and OCT next year. documented in this encounter Plan of Treatment Not on file documented as of this encounter Procedures Procedure Name Priority Date/Time Associated Diagnosis Comments OCT OPTIC NERVE - OU - BOTH EYES Routine 05/06/2024 1:44 PM EDT Glaucoma suspect, both eyes documented in this encounter Results * Oct Optic Nerve - OU [...] unspecified documented in this encounter Care Teams Filler Wiper Relationship Specialty Start Date End Date Lorrie Conte MD [address] [place] [address] PCP - General 08/09/10 documented as of this encounter
--- OUTSIDE RECORDS SUMMARY | 2024-05-12 17:07 | XMS_ITS ---
Author Organization Unknown Address [address] [place] [phone] Phone Care Team Providers Care Supervisor Bindery Name Role Phone SEGUNDO Matamoros Attending Unavailable JAYLAN Archer Primary Unavailable Results XR KNEE LT 3V* - Completed: 09/26/2021 14:23 LOINC: LEFT KNEE - THREE VIEWS Compared to 10/11/20. There is stable position and alignment of the components of the medial hemiarthroplasty. No fracture nor loosening evident. Moderate degenerative changes in the lateral and patellofemoral compartments also remain unchanged. Dictated by: BERNARD HENDERSON MD Transcribed by: [facility] [place] 09/27/21/10:39 D 09/26/2021 17:07:02 [id number] Electronically Reviewed and Signed By: DESTINY HENDERSON MD 09/27/21 18:14 Copy for: [facility] [employer] [facility] Social History Type Status Start Date End Date Code Code Syst em Smoking History Former smoker 8411531 SNOMED CT Sex Male Hospital Discharge Instructions Should you have any questions prior to discharge, please contact a member of your healthcare team. If you have left the hospital and have any questions, please contact your primary care physician. Reason For Referral No Data Found Allergies and Adverse Reactions Allergy Substance Reaction Severity Start Date Concern Status Co de Code System No Known Drug Allergies Active 539573904 SNOMED-CT Plan of Treatment Pre-Op Covid-19 Testing 09/09/2020 Encounters Encounter Diagnosis Start Date Code Code Sys tem Artificial knee joint present 09/26/2021 87434047284 2 SNOMED-CT Personal Care Team Section Performer Name Performer Role Active Date Inactive Da te
--- OUTSIDE RECORDS SUMMARY | 2024-05-12 17:07 | XMS_ITS | Encounter Summary ---
Author Organization [facility] Address [address] [place] [address] Care Team Providers Care Sales Solutions Representative Name Role Phone Unknown, Provider Primary Care Provider Encounter Details Date Type Department Care Team (Latest Contact Info) Description 08/28/2016 8:03 EST - 08/28/2016 23:59 EST Hospital Encounter [address] [address] Unknown, Provider, Discharge Disposition: Home or Self Care Social History Tobacco Use Types Packs/Day Years Used Date Smoking Tobacco: Never Assessed Sex and Gender Information Value Date Recorded Sex Assigned at Not on file Gender Identity Not on file Sexual Orientation Not on file documented as of this encounter Discharge Disposition Disposition Code Departure Means Destination Home or Self [facility] documented in this encounter Plan of Treatment Upcoming Encounters Date Type Department Care Team (Latest Contact Info) Description 05/13/2024 9:15 EDT Ancillary Procedure [facility] Cardiology - [facility] [place] [address] [place] [address] History of aortic valve replacement; Elevated blood pressure reading 05/13/2024 11:00 EDT Office Visit [facility] Cardiology - [address] [place], [place] [id number] Jose Stauffer MD [address] [facility] [address] [place] [address] documented as of this encounter Visit Diagnoses Not on filedocumented in this encounter Care Teams Sales Solutions Representative Relationship Specialty Start Date End Date Unknown, Provider, PCP - General 07/26/15 10/18/17 documented as of this encounter
--- OUTSIDE RECORDS SUMMARY | 2024-05-12 17:07 | XMS_ITS | Encounter Summary ---
Author Organization [facility] [place] [address] Care Team Providers Care Skirt Clipper Name Role Phone Lorrie Conte MD Primary Care Provider [phone] Encounter Details Date Type Department Care Team (Latest Contact Info) Description 08/02/2023 Travel Social History Tobacco Use Types Packs/Day [...] on filedocumented in this encounter Care Teams Skirt Clipper Relationship Specialty Start Date End Date Lorrie Conte MD [address] [place] [address] PCP - General 08/09/10 documented as of this encounter
--- OUTSIDE RECORDS SUMMARY | 2024-05-12 17:07 | XMS_ITS | Encounter Summary ---
Author Organization [facility] [place] [address] Care Team Providers Care Product Support Specialist Name Role Phone Lorrie Conte MD Primary Care Provider Encounter Details Date Type Department Care Team (Latest Contact Info) Description 10/23/2022 Travel Social History Tobacco Use Types Packs/Day [...] on filedocumented in this encounter Care Teams Product Support Specialist Relationship Specialty Start Date End Date Lorrie Conte MD [address] [place] [address] PCP - General 08/09/10 documented as of this encounter
--- OUTSIDE RECORDS SUMMARY | 2024-05-12 17:07 | XMS_ITS | Encounter Summary ---
Author Organization [facility] Address [address] [place] [address] Care Team Providers Care Armament Installer Name Role Phone Lorrie Conte MD Primary Care Provider [phone] Reason for Referral * Consult (Routine) - Closed Specialty Diagnoses / Procedures Referred By Contac t Referred To Contact Infectious Disease Diagnoses Coronary artery disease involving [place] heart without angina pectoris, unspecified vessel or lesion type Hamlet Barajas MD Whitman, Timothy J, DO [address] [facility] [address] [place] [address] Referral ID Status Reason Start Date Expiration Date V isits Requested Visits Authorized [id number] Closed Specialty Services Required 05/26/2019 1 1 Question Answer Reason for Request: HIV Scheduling Comments (optional ? describe specific scheduling needs if applicable): 3-4 weeks * Radiology Services (Routine) - Receiving Office to Obtain Authorization Specialty Diagnoses / Procedures Referred By Contac t Referred To Contact Diagnoses Aortic valve insufficiency, etiology of cardiac valve disease unspecified Coronary artery disease involving [place] heart without angina pectoris, unspecified vessel or lesion type Procedures CHEST PA AND LATERAL Jackie Dallas PA-C Referral ID Status Reason Start Date Expiration Date Visits Requested Visits Authorized [id number] Receiving Office to Obtain Authorization 05/26/2019 1 1 * (Routine/Next Available) - Receiving Office to Obtain Authorization Specialty Diagnoses / Procedures Referred By Contac t Referred To Contact Jackie Dallas PA-C Referral ID Status Reason Start Date Expiration Date Visits Requested Visits Authorized [id number] Receiving Office to Obtain Authorization Specialty Services Required 05/26/2019 1 1 Comments You have been referred to [facility] program. [facility] is located at [address] [place], [place] [address], [place], [address] Call for directions. Patients within [facility] area should be scheduled for an appointment on the first Sunday at least 14 days after discharge. * Consult (Routine/Next Available) - Receiving Office to Obtain Authorization Specialty Diagnoses / Procedures Referred By Contac t Referred To Contact Diagnoses Aortic valve insufficiency, etiology of cardiac valve disease unspecified Coronary artery disease involving [place] heart without angina pectoris, unspecified vessel or lesion type Hamlet Barajas MD Referral ID Status Reason Start Date Expiration Date Visits Requested Visits Authorized [id number] Receiving Office to Obtain Authorization Specialty Services Required 05/26/2019 1 1 Question Answer Reason for Request: s/p CABG, AVR * Follow Up (Other (Specify in Question)) - Closed Specialty Diagnoses / Procedures Referred By Contac t Referred To Contact Cardiology Diagnoses Coronary artery disease involving [place] heart without angina pectoris, unspecified vessel or lesion type Aortic valve insufficiency, etiology of cardiac valve disease unspecified Hamlet Barajas MD [facility] [address] [place], [place] [address] [address] Referral ID Status Reason Start Date Expiration Date V isits Requested Visits Authorized [id number] Closed Specialty Services Required 05/26/2019 1 1 Question Answer Reason for Request: Follow up Scheduling Comments (optional ? describe specific scheduling needs if applicable): 2-3 [address] Stauffer for primary dehairer but can see anyone for 1st appointment * Follow Up (Routine) - New Request Specialty Diagnoses / Procedures Referred By Contac t Referred To Contact Diagnoses Aortic valve insufficiency, etiology of cardiac valve disease unspecified Coronary artery disease involving [place] heart without angina pectoris, unspecified vessel or lesion type Hamlet Barajas MD Dobbertin, Lorrie Archer MD [address] [place] [address] Referral ID Status Reason Start Date Expiration Date Visits Requested Visits Authorized [id number] New Request Continuity of Care 05/26/2019 1 1 Question Answer Reason for Request: s/p CABG, AVR Comments Follow up within 1-2 weeks * (Routine) - Receiving Office to Obtain Authorization Specialty Diagnoses / Procedures Referred By Contac t Referred To Contact Jackie Dallas PA-C Referral ID Status Reason Start Date Expiration Date Visits Requested Visits Authorized [id number] Receiving Office to Obtain Authorization Specialty Services Required 05/26/2019 1 1 Comments Follow-up with your PCP in 1-2 weeks Follow-up with your dehairer in 2-3 weeks Follow-up with your surgeon in 4-6 weeks * (Routine) - Receiving Office to Obtain Authorization Specialty Diagnoses / Procedures Referred By Contac t Referred To Contact Jackie Dallas PA-C Referral ID Status Reason Start Date Expiration Date Visits Requested Visits Authorized [id number] Receiving Office to Obtain Authorization Specialty Services Required 05/26/2019 1 1 * (Routine) - Receiving Office to Obtain Authorization Specialty Diagnoses / Procedures Referred By Contac t Referred To Contact Jackie Dallas PA-C Referral ID Status Reason Start Date Expiration Date Visits Requested Visits Authorized [id number] Receiving Office to Obtain Authorization Specialty Services Required 05/26/2019 1 1 Comments - Check in at Registration on level 3 (street level) at [facility] 45 minutes prior to your scheduled appointment with the surgeon. - If you have a chest x-ray prior to your appointment with the surgeon, contact the surgeon's office at or to see if this x-ray will still be needed. Encounter Details Date Type Department Care Team (Late st Contact Info) Description 05/14/2019 12:14 EDT - 05/26/2019 14:15 EDT Hospital Encounter [facility] Special[facility] Unit [address] [place] [address] [id number] Anjum Pascual MD [address] [address] Simona Hamilton MD 111 [facility] [address] [place] [id number] Jose Stauffer MD [address] [address] Hamlet Barajas MD Aortic valve insufficiency, etiology of cardiac valve disease unspecified (Primary Dx); Acute heart failure with preserved ejection fraction (HCC-CMS); Coronary artery disease involving [place] heart without angina pectoris, unspecified vessel or lesion type Discharge Disposition: Home or Self Care Social [...] Sign Reading Time Taken Comments Blood Pressure 88/61 05/26/2019 1143 EDT Pulse 92 05/24/2019 2135 EDT Temperature 37.4 ??C (99.3 ??F) 05/26/2019 0813 EDT Respiratory Rate 18 05/26/2019 0538 EDT Oxygen Saturation 97% 05/26/2019 0813 EDT Inhaled Oxygen Concentration - - Weight 75.7 kg (166 lb 12.8 oz) 05/26/2019 0538 EDT Height 167.6 cm (5' 5.98) 05/22/2019 0534 EDT Body Mass Index 26.94 05/22/2019 0534 EDT documented in this encounter Functional Status [...] No 05/14/2019 documented as of this encounter Discharge Diagnoses Diagnosis I35.1 Nonrheumatic aortic (valve) insufficiency-I35.1[ICD-10-CM] B20 Human immunodeficiency virus [HIV] disease-B20[ICD-10-CM] I47.2 Ventricular tachycardia-I47.2[ICD-10-CM] B37.0 Candidal stomatitis-B37.0[ICD-10-CM] I97.190 Other postprocedural cardiac functional disturbances following cardiac surgery-I97.190[ICD-10-CM] I44.2 Atrioventricular block, complete-I44.2[ICD-10-CM] I25.10 Atherosclerotic heart disease of [place] coronary artery without angina pectoris-I25.10[ICD-10-CM] N40.0 Benign prostatic hyperplasia without lower urinry tract symp-N40.0[ICD-10-CM] M19.90 Unspecified osteoarthritis, unspecified site-M19.90[ICD-10-CM] D69.49 Other primary thrombocytopenia-D69.49[ICD-10-CM] Z87.891 Personal history of nicotine dependence-Z87.891[ICD-10-CM] 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 Cardiothoracic Surgery Discharge Summary Primary Care Provider: Lorrie Conte Attending Physician: Hamlet Barajas MD Admit Date: 05/14/2019 Discharge Date: 05/26/2019 Disposition: Home or self care Problems and Procedures Admitting Diagnosis: Aortic valve insufficiency, etiology of cardiac valve disease unspecified Primary Hospital Diagnosis: Severe Aortic Insufficiency, Coronary Artery Disease Secondary Diagnosis: HIV Additional Problems Managed in the Hospital Active Hospital Problems Diagnosis Date Noted ??? *Aortic valve regurgitation 05/14/2019 Resolved Hospital Problems No resolved problems to display. Operations and Procedures CABG x2 and Aortic Valve Replacement on Date 05/22/2019 History of Presentation Our service was asked by ??Alfonso??to consult on Jose Cheung??for consideration of cardiacsurgery. The patient is a??68 y.o.??male??nonhypertensive, nondiabetic, nonsmoker,??with??PMH??of??recent HIV diagnosis March 2019??on biktarvy, BPH, uveitis, chronic thrombocytopenia, and oral candidiasis??who was admitted from Cardiology clinic on 05/14 with moderate to severe??symptomatic??aortic regurgitation. He underwent echocardiography in 2017 secondary to palpitations but was uncertain of results at that time. ??He notes that over the past 2 months he's had progressive dyspnea on exertion, orthopnea, and diminution in his exercise tolerance. He denies and syncopal or presyncopal symptoms. ??In lieu of his severe symptomatic aortic insufficiency he's being seen in consultation by cardiac surgery for anticipated AVR. ??Patient was unable to undergo non-invasive coronary imaging due to shortness of breath when supine therefore cardiac cath was done today which revealed multivessel disease. Hospital Course Jose Cheung, 68 y.o., male was admitted to [facility] on 05/14/2019 via the Cardiology/Cardiothoracic Surgery Service. He was brought to the operating room on 05/22/[address] Barajas performed CABG x2 and AVR. He tolerated the procedure well and brought to the surgical ICU for recovery.He initially required pharmacologic support of intravenous pressors and ionotropes. He was extubated from the ventilator on the night of surgery without difficulty. Diuretics were started and He responded appropriately. He was started on beta blockade and this wasoptimized. ID was consulted for assistance with his antimicrobial management. On POD #1, he had a run of VT which he had experienced before. Routine postoperative and home medications were started and a diet was advanced. By post operative day #2 all drips were weaned to off and He was transferred to the intermediate cardiac care unit for continued rehabilitation. On POD #3, he experienced some shortness of breath when lying flat and received extra Lasix for LE edema. All tubes, lines, and epicardial pacing wires were removed without incident. He voided normally after his garcia was removed and his renal function remained preserved. The remainder of He hospital course was uneventful and by postoperative days # 4 He had met all criteria for discharge to home. Pain was controlled on oral medications. He has walked 5 minutes and gone up and down stairs. He was tolerating a regular diet and had a bowel movement. The patient should have his chest tube sutures removed within about a week with his PCP or home health nursing. Given that the patient had moderate lower extremity edema and also some complaints of orthopnea (similar to his presentation, though had been stable on room air prior to discharge) he was discharged on an enhanced dose of diuretics: Lasix 40 mg BID with 20 meq of K+ BID for 2 weeks, followed by Lasix 20 mg BID with 10 meq of K+ BID for 2 weeks. The patient and his daughter were educated on signs/symptoms of dehydration which could include dizziness, excessive thirst or hypotension among other things and they were instructed to call our office, their PCP or Finish Remover if he experienced thesesymptoms so his fluid status could be reevaluated and adjusted if needed. He was also given JOHNNIE hose for his legs. The patient is being discharged on the following medications: Medication List START taking these medications acetaminophen 500 mg tablet Commonly known as: TYLENOL Take 1 Tab by mouth every 6 hours as needed for Pain. aspirin 81 mg EC tablet Take 1 Tab by mouth daily. atorvastatin 20 mg tablet Commonly known as: LIPITOR Take 1 Tab by mouth daily for 90 days. docusate sodium 100 mg capsule Commonly known as: COLACE Take 1 Cap by mouth 2 times daily as needed for up to 14 days for Constipation. furosemide 20 mg tablet Commonly known as: LASIX Take 2 Tabs by mouth 2 times daily with breakfast and dinner for 14 days, THEN 1 Tab 2 times daily with breakfast and dinner for 14 days. Start taking on: May 26, 2019 gabapentin 300 mg capsule Commonly known as: NEURONTIN Take 1 Cap by mouth every 8 hours as needed for Pain. metoprolol tartrate 37.5 mg tablet Take 37.5 mg by mouth 2 times daily for 90 days. potassium chloride SA 10 mEq tablet Commonly known as: K-DUR Take 2 Tabs by mouth 2 times daily for 14 days, THEN 1 Tab 2 times daily for 14 days. Start taking on: May 26, 2019 senna 8.6 mg tablet Commonly known as: SENOKOT Take 2 Tabs by mouth 3 times daily as needed for up to 14 days for Other. traMADol 50 mg tablet Commonly known as: ULTRAM Take 1 Tab by mouth every 8 hours as needed for Pain. Daily Max: 150 mg CONTINUE taking these medications BIKTARVY 50-200-25 mg per tablet Generic drug: yfndvzdmylw-edffivlqirswr-cpjxjeztb alafenamide fluconazole 100 mg tablet Commonly known as: DIFLUCAN tamsulosin 0.4 mg capsule Commonly known as: FLOMAX Where to Get Your Medications [facility] [address] [address] ?? atorvastatin 20 mg tablet ?? furosemide 20 mg tablet ?? gabapentin 300 mg capsule ?? metoprolol tartrate 37.5 mg tablet ?? potassium chloride SA 10 mEq tablet ?? traMADol 50 mg tablet You can get these medications from any pharmacy You don't need a prescription for these medications ?? acetaminophen 500 mg tablet ?? aspirin 81 mg EC tablet ?? docusate sodium 100 mg capsule ?? senna 8.6 mg tablet Allergies and Immunizations No Known Allergies There is no immunization history on file for this patient. Transition of Care Plans Condition at Discharge Stable Assessment at Discharge Blood pressure (!) 88/61, pulse 92, temperature 37.4 ??C (99.3 ??F), temperature source Tympanic, resp. rate 18, height 167.6 cm (65.98), weight 75.7 kg (166 lb 12.8 oz), SpO2 97 %. Admission Wt: 76.2 kg Last Wt: Last 5 Weights Filed This Admission 05/14/19 1140 05/22/19 0534 05/25/19 0635 05/26/19 0538 Weight: 76.2 kg (168 lb) 72.8 kg (160 lb 9.6 oz) 77 kg (169 lb 11.2 oz) 75.7 kg (166 lb 12.8 oz) Pertinent Physical Exam Findings General: alert, NAD, on RA CV: RRR, systolic ejection murmur Resp: CTAB, incision clean, dry & intact Abd: Soft, ND, NT Extr: WWP, 2+ edema bilateral lower extremities Important Lab Data Lab Results Component Value Date NA 136 05/26/2019 K 4.0 05/26/2019 CL 96 05/26/2019 CO2 32 05/26/2019 BUN 19 05/26/2019 CREATININE 0.83 05/26/2019 CALCGFR 90 05/26/2019 Complete Blood Count Lab Results Component Value Date ABO O 05/21/2019 WBC 8.03 05/26/2019 RBC 3.75 (L) 05/26/2019 HGB 11.8 (L) 05/26/2019 HCT 34.9 (L) 05/26/2019 MCV 93 05/26/2019 MCH 31.5 05/26/2019 MCHC 33.8 05/26/2019 PLT 188 05/26/2019 MPV 11.5 05/26/2019 RDWCV 14.9 (H) 05/26/2019 Coagulation No results found for: DDIMER, FIBRINOGEN, FDP, BLEEDINGTIME, PTT, APTT, PROTIME, INR Relevant Studies at Discharge: EKG 05/25/2019 CXR 05/25/2019 Impression: 1. ??Bibasilar atelectasis and bilateral pleural effusions. Discharge Follow Up Home Health Care Services Patient declined home health services Follow Up Visit: --A referral was made for the patient to follow up with his PCP Lorrie Conte in 1 week for suture removal and medication review --A referral was made for the patient to follow up with his Finish Remover Jose Stauffer MD in 2-3 weeks --A referral was made for the patient to follow up with his Cardiothoracic Surgeon Hamlet Barajas MD in 4-6 weeks with a CXR prior --A referral was made for the patient to follow up with Infectious Disease clinic in 3-4 weeks Quality Measures: Is patient on ASA Yes Is patient on a Statin (unless contraindicated) Yes Is patient on a Beta lani Yes Is patient on an Yady (patients with low EF unless contraindicated/ recent DE) No Discharge summary completed by Jackie Dallas PA-C on 05/26/2019 documented in this encounter Discharge Instructions * Discharge Instr - Other Orders* Mary Amaya, RN - 05/15/2019 8:16 EDT Remember the acronym DONNY - Diet: low salt - Activity: daily moderate activity for 30 minutes - Medication administration: refer to the After Visit Summary - Everyday weight: weigh yourself daily and record in weight log - Symptom monitoring and follow though: call your doctor's office If you experience rapid weight gain (3 or more pounds in 2 days), increased shortness of breath, or increase leg swelling. * Attachments The following attachments cannot be sent through Care Everywhere. * Heart Failure: Avoiding Triggers (Mauritian) documented in this encounter Medications at Time [...] Take 1 Tab by mouth daily. 10/06/2020 docusate sodium (COLACE) 100 mg capsule Take 1 Cap by mouth 2 times daily as needed for up to 14 days for Constipation. 05/26/2019 06/09/2019 fluconazole (DIFLUCAN) 100 mg tablet Take 100 mg by mouth every 48 hours. 02/22/2021 furosemide (LASIX) 20 mg tablet Take 2 Tabs by mouth 2 times daily with breakfast and dinner for 14 days, THEN 1 Tab 2 times daily with breakfast and dinner for 14 days. 84 Tab 05/26/2019 06/23/2019 gabapentin (NEURONTIN) 300 mg capsule Take 1 Cap by mouth every 8 hours as needed for Pain. 30 Cap 05/26/2019 06/18/2019 metoprolol 37.5 mg tablet Take 37.5 mg by mouth 2 times daily for 90 days. 60 Tab 2 05/26/2019 06/18/2019 potassium chloride SA (K-DUR) 10 mEq tablet Take 2 Tabs by mouth 2 times daily for 14 days, THEN 1 Tab 2 times daily for 14 days. 84 Tab 05/26/2019 06/23/2019 senna (SENOKOT) 8.6 mg tablet Take 2 Tabs by mouth 3 times daily as needed for up to 14 days for Other. 05/26/2019 06/09/2019 traMADol (ULTRAM) 50 mg tablet Take 1 Tab by mouth every 8 hours as needed for Pain. Daily Max: 150 mg 10 Tab 05/26/2019 06/18/2019 documented as of this encounter Ordered Prescriptions Prescription Sig Dispensed Refills Start Date End Da te aspirin 81 mg EC tablet Take 1 Tab by mouth daily. 05/27/2019 traMADol (ULTRAM) 50 mg tablet Take 1 Tab by mouth every 8 hours as needed for Pain. Daily Max: 150 mg 10 Tab 05/26/2019 06/18/2019 senna (SENOKOT) 8.6 mg tablet Take 2 Tabs by mouth 3 times daily as needed for up to 14 days for Other. 05/26/2019 06/09/2019 potassium chloride SA (K-DUR) 10 mEq tablet Take 2 Tabs by mouth 2 times daily for 14 days, THEN 1 Tab 2 times daily for 14 days. 84 Tab 05/26/2019 06/23/2019 metoprolol 37.5 mg tablet Take 37.5 mg by mouth 2 times daily for 90 days. 60 Tab 2 05/26/2019 06/18/2019 gabapentin (NEURONTIN) 300 mg capsule Take 1 Cap by mouth every 8 hours as needed for Pain. 30 Cap 05/26/2019 06/18/2019 furosemide (LASIX) 20 mg tablet Take 2 Tabs by mouth 2 times daily with breakfast and dinner for 14 days, THEN 1 Tab 2 times daily with breakfast and dinner for 14 days. 84 Tab 05/26/2019 06/23/2019 docusate sodium (COLACE) 100 mg capsule Take 1 Cap by mouth 2 times daily as needed for up to 14 days for Constipation. 05/26/2019 06/09/2019 atorvastatin (LIPITOR) 20 mg tablet Take 1 Tab by mouth daily for 90 days. 30 Tab 2 05/27/2019 08/25/2019 acetaminophen (TYLENOL) 500 mg tablet Take 1 Tab by mouth every 6 hours as needed for Pain. 05/26/2019 02/17/2020 documented in this encounter Discharge Disposition Disposition Code Departure Means Destination Home or Self Care documented in this encounter Progress Notes * Sharona Cornejo PT - 05/26/2019 1415 EDT Rehabilitation Therapies [facility] Physical Therapy Discontinue/Discharge Note Date: 05/28/2019 SUBJECTIVE: None OBJECTIVE: The patient initiated physical therapy on 05/25/19. The patient has been discharged from the hospital. Please refer to the Physical Therapy Initial Evaluation Note for details. ASSESSMENT: Unable to assess his current status as the patient was not seen for any additional therapy sessions. GOALS: All goals discontinued. PLAN: Discontinue physical therapy. SHARONA CORNEJO PT 05/28/2019 7:55 * Evelin Smyth - 05/26/2019 1302 EDT Case Management Discharge Note 05-26-19: Pt is being discharged today. He will be going to stay with his daughter Aydee. Discussed home health with them & they declined. Aydee stated that she is the infertility medical assistant at [employer] & her sister is the distribution center administrator. She stated that they will be available toassist pt as needed at discharge. Evelin Smyth ANIMAL GENETICIST #[phone] * Jackie Dallas - 05/26/2019 0949 EDT Cardiothoracic Surgery Daily Progress Note Date of Service: 05/26/2019 Admit Date: 05/14/2019 POD: 4 (05/22/2019) S/p AVR (tissue) and ??CABG x2 (v-OM, v-PDA) 24 Hour Events: ?? Mostly on pathway ?? Experiencing lower extremity edema, received an extra dose of Lasix yesterday ?? Worked with PT yesterday; cleared for discharge to home Subjective Patient notes shortness of breath with lying supine. Pain is controlled PO meds. Feeling motivated for discharge to home with help from family. Objective Vital Signs Temp: [36.9 ??C (98.4 ??F)-37.9 ??C (100.2 ??F)] (), Heart Rate: [78 BPM-106 BPM] (), Pulse: -- (),Pulse From Oximetry: [90 BPM] (), Resp: [18] (), BP: (94-118)/(63-79) (), SpO2: [91 %-99 %] () I&O's I&O By Type - 3 Shifts Including Current In: 240 [P.O.:240] Out: 1650 [Urine:1650] Physical Exam General: alert, NAD, on RA CV: RRR, systolic ejection murmur Resp: CTAB, incision clean, dry & intact Abd: Soft, ND, NT Extr: WWP, 2+ edema bilateral lower extremities Labs WBC/Hgb/Hct/Plts: 8.03/11.8/34.9/188 (05/26 720) Na/K/Cl/CO2: 136/4.0/96/32 (05/26 720) BUN/Cr/glu/ALT/AST/amyl/lip: 19/0.83/--/--/--/--/-- (05/26 720) Imaging EKG from 05/25/2019 showed NSR with LBBB that is not new CXR from 05/25/2019 showed bibasilar atelectasis and bilateral pleural effusions. Assessment The patient is a 68 y.o. male with history of severe aortic regurgitation and multivessel coronary disease now POD# 4 s/p CABG x2 and AVR. Overall doing well on pathway. Received extra lasix yesterday and today for LE edema. Still experiencing SOB when supine. 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 Jackie Dallas PA-C 05/26/2019 10:37 Cardiothoracic Surgery * Sharona Cornejo, PT - 05/25/2019 1114 EDT [facility] Physical Therapy[facility] Note Date of Service: 05/25/2019 PT referral received. Chart reviewed, pt seen. Pt tolerated ambulation without device in hallway and up/down practice steps with VSS, mild SOB, relieved with pacing and rest in sitting, spo2 >95% , RN aware. Education provided. Full note to follow. Likely d/c tomorrow per team. SHARONA CORNEJO PT 05/25/2019 11:14 * Sharona Cornejo, PT - 05/25/2019 0841 EDT [facility] Rehabilitation Therapy Acute Therapies [facility] Physical Therapy Initial Evaluation Note Date of Service: 05/25/2019 Reason for Referral: Evaluate and treat Precautions: Activity orders: Activity as tolerated Precautions: sternal, SUBJECTIVE: I'm feeling better Pain: no pain reported at time of this eval Location: Intensity: 4/10 (at present), 3/10 (at best), 8/10 (at worst) Frequency: With movement, palpation Quality: Pt endorses pain as Sharp , dull Aggravating factors: Pt endorses that increased or excessive activity worsens symptoms Alleviating factors: Medication helps , rest OBJECTIVE: PatientProfile: Patient is a 68 y.o. male admitted on 05/14/2019 secondary to CLINIC/DIASTOLIC HEARTFAILURE/MR04 I50.31 Acute diastolic (congestive) heart failure-I50.31[ICD-10-CM] The patient lives at [address] [place] [address] Per H&P from primary team on admit date this admission , if available: HPI: Jose is a 68 y/o male with a history significant for recent HIV diagnosis in March 2019 (CD4 count 529, viral load 94,797) on biktarvy, BPH, uveitis, chronic thrombocytopenia, and oral candidiasis who presents today as a direct admit from an outpatient cardiology appointment with Dr Stauffer with shortness of breath where he was diagnosed by echo with new onset moderate to severe aortic regurgitation. His shortness of breath began around 04/21/19 and has been associated with LE edema. He states that he had been noticing increasing SOB on exertion for a few years prior to a sudden increase in severity around 04/21. He states that since then he has had SOB when laying down and even when in a recl ined sitting position. He denies CP, abdominal pain, EDGAR, dizziness, N/V, diarrhea, urinary symptoms(other than baseline urgency treated with flomax). He acknowledges a 25 pound weight loss in the last few months. He has a history of intermittent palpitations throughout his life without definitive diagnosis. He has had uveitis for about 40 years which has required some surgical intervention in the distant past. He states that he has had severely limited mobility since the onset of more severe SOB whereas before his physical activities were limited only by knee discomfort from suspected osteoarthritis well managed with steroid injections. He states that his lower back and leg pain have been worsening over the last few months as well which are now helped only by taking 3 warm baths per day.He has had a number of illnesses suspected to be related to his recently contracted HIV including flu-like illness, diarrheal illness, and oral thrush for which he is still being treated. He states that he believes he contracted HIV [facility] ?? He lives in [facility] in a duplex home with his brother in the other half and two of his three daughters live nearby in [place]. He typically spends time outside gardening, hunting, and maintaining his own home. He has a remote history of tobacco use amounting to about 2 pack years. He drinks only occasionally. He denies all other drug use. Two of his daughters are present today during our conversation and they are supportive. Home environment Lives:with family-a brother who lives in a duplex with him in a separate area of her daughter's andare able to assist as well Equipment Available: None Home Environment: house Home Layout: One story. Entry stairs: 2 with rails Prior Level of Function: Independent Services prior to admission: None Work/Leisure: Need to clarify Medical/Surgical History: Current: Patient Active Problem List Diagnosis ??? Aortic valve regurgitation Past: Past Medical History: Diagnosis Date ??? Aortic regurgitation ??? BPH (benign prostatic hyperplasia) ??? HIV (human immunodeficiency virus infection) ([facility]) ??? Osteoarthritis ??? Thrombocytopenia ([facility]) ??? Uveitis Past Surgical History: Procedure Laterality Date ??? CATARACT REMOVAL ??? KNEE ARTHROSCOPY Bilateral ??? ROTATOR CUFF REPAIR ??? TONSILLECTOMY ??? UMBILICAL HERNIA REPAIR Medications: Medications reviewed Arousal, Attention, and Cognition: Orientation: Oriented to person, place, and time Cardiopulmonary: see current and past medical and surgical history Vital Signs: stable per RN, and patients flowsheet recordings Activity Heart rate (bpm) Blood Pressure (mmHg) Respiratory rate (breaths/min) Oxygen Sat/ Fractions of inspired Oxygen SPO2/FIO2 % Pre heart rate 88, blood pressure 108/60 see previous box room air 96% During Post blood pressure 118/68, heart rate 94 See previous box room air 97% Breath sounds: pre: CTA B lung polanco Diminished BS at bases Fine crackles Breath sounds post: CTA B lung field Diminished BS at bases Fine crackles improved air exchange post activity Airway Clearance: strong spontaneous effective cough, Dry, education regarding splinting provided Integumentary/Anthropometric Characteristics: Palpation/Observation: grossly assessed Skin: see patient story and team/ RN notes Edema: See RN notes Posture: protracted shoulders, kyphotic, forward head Range of Motion and Joint Integrity: Active Range of Motion: Upper Quarter:Within normal limits with gross examine during functional activities, except as notedbelow . Left Upper Extremity: Right Upper Extremity: Cervical Spine: limited assessment, grossly within normal limits during functional activities Lower Quarter: Within normal limits with gross examine during functional activities as tolerated, except as noted below. Left Lower Extremity: grossly within normal limits during functional activities RightLower Extremity: grossly within normal limits during functional activities Lumbar Spine: limited assessment, grossly within normal limits during functional activities Muscle Performance: Strength: Grossly modified assessment, Formal resistive manual muscle testing not performed due to focus on functional activities at this time. Upper Quarter: ?? Left Upper Extremity: grossly > or = to 3/5 as demonstrated functionally at shoulder flexion/extension, abduction,ER/IR ?? Wrist and hand strong wire mill rover, full release Right Upper Extremity: Grossly> or = to 3/5 as demonstrated functionally at shoulder flexion/extension, abduction,ER/IR ??Wrist and hand strong wire mill rover, full release Cervical Spine: Can lift head off pillow Adequate postural control for activities as examined below Lower Extremity: Left Lower Extremity: Grossly > or = to 3/5 as demonstrated functionally at hip flexion/knee extension/flexion, ankle DF/PF Right Lower Extremity: Grossly> or = to 3/5 as demonstrated functionally at hip flexion/knee extension/flexion, ankle DF/PF LumbarSpine: Adequate postural control for activities as examined below Sensation, Reflexes, and Nerve Integrity: Light Touch Sensation: Upper Quarter: Not evaluated with formal sensory testing in this setting , grossly light touch sensation appears intact at C2-T1 Lower Quarter: Not evaluated with formal sensory testing in this setting , grossly light touch sensation appears intact for lower extremities ??Neuromotor Function/Development: Gross assessment performed No gross motor delays noted Motor control/ Movement patterns/ Coordination:Behavioral response to stimulation:appear intact Speech/Communication/Oral motor control: appear intact Balance, Mobility, and Gait: Balance: Sitting Balance Static: pt able to maintain balance in supervised sitting Dynamic:pt able to maintain balance in supervised sitting and maintain neutral sitting balance whenchallenges to balance placed on patient's center of gravity Standing balance Static: pt able to maintain balance in standing, Seeks no UE support Dynamic:pt able to maintain balance in standing Seeks no UE support with challenges to balance Mobility: Mobility evaluation as follows: All below with assist and verbal cues for sequencing/energy conservation/pacing, Rolling: independent, with railing to left / Right Supine <> to sit: supervision to min Contact assist x1 Sit<> to stand: , supervision to min contact assist x1 with device Bed <> to chair: Gait: Assistive device/distance/assist/deviations: Patient able to ambulate to 20 feet , modified independent supervision moderate min contact assist x1, with an assistive of a r/w, with a decreased danielito of gait pattern. Pt provided with verbal cues for energy conservation/pacing Self-Care, Home Management, Work, and Leisure: Outcomes: See above for outcome measures as appropriate for these activities Informed Consent: The patient or team consented to the physical therapy evaluation. The patient agreed at the time, and understands the physical therapy treatment plan and goals. Interventions Completed Today: Physical Therapy today at: 11 Total treatment time: 35 minutes. Timed code treatment minutes: 25 Vital signs monitored, expected response demonstrated throughout session. Cough effective productive, dry cough Patient performing incentive spirometry independently to 500-7 50 with effort cough dry, reviewed benefits of splinting Treatment: Therapeutic Exercises:Therapeutic exercises were reinforced and the patient was provided with cues to facilitate improved technique/proper performance in order to optimize outcome. x10 reps Sitting: Ankle pumps, knee kicks, knee raises All above with verbal cues for pacing, technique UE forward reaching Breathing Exercises/airway clearance: Instructed and performed paced deep breathing/pursed lip breathing with all functional activity to maximize gas exchange and to decrease work of breathing. Pt performed IS x10 to 500-7 50 but with effort ml, cued to cough afterwards. Cough productive initially, then dry. Therapeutic Activity: Adjustments as necessary made to assistive device Bed mobility: rolling to sit with modified independence, -supervision,- assist x1 Transfers: sit <> stand with -supervision,-min contact assist x1 Bed <> chair with -supervision, -min contact assist x1 Aerobic capacity training: Verbal cues for paced/pursed lip breathing control, with verbal cues for wide base of support to maximize balance and maintain center of gravity Pt ambulated 100 ft x 2 with assisitive device with , -supervision,-min contact assist x1. Cues were required for technique and proper hand placement - gait deviations included slow danielito,decreased bilateral hip and knee flexion during swing, decreased bilateral step length, and decreased bilateral heel strike, and a wide base of support which patient reports is baseline. Patient withmild shortness of breath which was relieved in paced standing rests and then relieved at rest and sitting after ambulation SPO2 at 96% on room air All above with verbal cues for safety as well as energy conservation/pacing After pt rested: Stairs: /step mock up: Patient able to step up and down a step with rail and supervision min contact assist x1. Education provided regarding sequencing and safety. Pt returned to chair with table, call lowe, phone and other requested items by pt RPE scale 3-4/10 Patient/Family Education: Patient instructed/performed in energy conservation techniques, self initiating rest periods coupled with pursed lip breathing with all functional activities. Patient instructed/performed deep breathing exercises. Topic: Activity pacing/Energy conservation Assistive device/technique Breathing exercises Discharge planning Home program Precautions/protocol Role of therapy Safety Stairs Learner: patient Method: verbal, handout and demonstration Barriers to Learning: none noted Outcome: verbalized understanding Patient's daughter present and appeared to understand all the education provided, PT reviewed handout with her Team Communication: RN aware of session and outcomes. Discussed appropriate activity recommendations for patient. ASSESSMENT: Upper Quarter Screen: Positive findings of sternotomy do have an impact on the patient's function and require monitoring. ?? Physical Therapy Diagnosis: This patient is appropriate for skilled physical therapy (PT) evaluation and intervention as indicated in this acute care setting due to patient's diagnosis of impaired mobility, functional balance, strength/deconditioning ,activity tolerance/aerobic capacity/gas exchange. These impairments contribute to patient's functional limitations. In addition, contributing limiting factors include patient's current and PMHx as above. Physical Therapy Prognosis: This patient will benefit from PT intervention to address patient's impairments as above, address safety, and assist with discharge planning. Evidence supports patient mobilization to prevent deconditioning due to related inactivity and improves overall systemic body function. Recommended to nursing staff to increase opportunities for patient to mobilize with assistance throughout all shifts to prevent ongoing deconditioning and other complications related to decreased mobility. Patient's main limiting barrier is decreased activity tolerance related to above impairments . Patient is currently below baseline level of functional mobility and activity. Patient is motivated to participate in PT and to increase all activity levels. This patient has good potential to make gains toward prior level of functioning especially as pt is able to tolerate more activity. Patient/family endorses that there is adequate assistance at previous home setting therefore anticipate discharge to previous setting is a feasible plan. Benefits of home health services( PT) discussed, and declined patient status and physical therapist at work in the home setting. Short-Term Goals: n/a Long-Term Goals: LTG 7-10 days; Patient/Caregiver will be able to demonstrate/perform: ?? bed mobility: independent -without bed features ?? Transfers: Modified independence- assist x1 with least restrictive device ?? ambulation: Pt demonstrates ambulation with modified independence x-> or = to 100 ft , with least restrictive device ?? Stairs/step mock up with -supervision-assist x 1 ?? home exercise/endurance program as instructed with cues as needed ?? breathing exercises ,IS, pacing/energy conservation strategies with all above activities with cues as appropriate. ?? awareness of physical therapy recommendation(s) ?? functional activity/exercise while maintaining: recommended SpO2 levels; utilizing energy conservation techniques and achieving a RPE scale <5/10 if applicable. PLAN: Likely d/c tomorrow Treatment/Intervention: Physical therapy will be provided by physical therapist and/or physical therapist assistant operations manager when medically appropriate. Frequency: daily for 3 times per week Intensity: 15-30 minutes per session Duration: During hospitalization Interventions may include:Therapeutic activities Patient/family education: Discharge planning, Recommendations Further Data: assess patient's on going needs, perform standardized tests as applicable in this setting Recommended Discharge Destination: Home with family Recommended Discharge Services: No physical therapy follow-up services at this time Recommended Equipment Needs: No equipment necessary Other recommendations: No other consults recommended at this time Pager: [phone] SHARONA CORNEJO PT 05/25/2019 8:41 * Paz Gordon MD - 05/25/[address] Surgery Progress Note Admit Date: 05/14/2019 LOS: 11 days CC: Aortic valve regurgitation POD# 3 (05/22/2019) S/p AVR (tissue) and CABG x2 (v-OM, v-PDA) Subjective: 24-Hour Events: On pathway Subjective: Slept in chair overnight 2/2 SOB with lying flat. Passing gas. No BM yet. Pain is tolerable. Walking in the room but has not yet ambulated the halls. Meds MAR Reviewed Objective: Vitals: BP 104/73 (BP Cuff Location: Right arm, Patient Position: Sitting) Pulse 92 Temp 37.2 ??C (99 ??F) Resp 22 Ht 167.6 cm (65.98) Wt 77 kg (169 lb 11.2 oz) SpO2 95% BMI 27.40 kg/m?? BP: (88-122)/(67-77) () Pulse: [77-92] () Temp: [36.2 ??C (97.1 ??F)-37.8 ??C (100 ??F)] () Resp: [18-25] () SpO2: [89 %-98 %] () Admission weight: Weight : 76.2 kg (168 lb) Most recent weight: Weight : 77 kg (169 lb 11.2 oz) Patient is on room air Intake/Output Summary (Last 24 hours) at 05/25/2019 0644 Last data filed at 05/25/2019 0635 Gross per 24 hour Intake 1270 ml Output 2360 ml Net -1090 ml I/O for Current Shift: 05/24 2300 - 05/25 0659 In: 520 [P.O.:520] Out: 625 [Urine:625] Exam Gen: alert, conversant, NAD Heart: RRR. Systolic ejection murmur Lungs: CTAB, incision C/D/I Abd: S, NT, ND Ext: WWP, 2+ LE edema bilaterally Neuro: AAOx3, moves all extremities to command. LUE with regular low-impulse twitch that is improved today Data Review CBC: Recent Labs 05/22/19 19305/23/1941405/24/19414 WBC 11.96* 9.46 11.18* RBC 4.29* 4.19* 3.79* HGB 13.5* 13.2* 12.1* HCT 39.0* 38.2* 34.1* MCV 91 91 90 MCH 31.5 31.5 31.9 MCHC 34.6 34.6 35.5 PLT 190 193 144 BMP: Recent Labs 05/22/19 1231 05/22/19 1339 05/22/198 05/23/1941405/24/19414 NA 140 -- -- -- -- 135* 131* K 3.8 < > -- < > 5.0 5.3* 4.6 CL -- -- -- -- -- 105 98 CO2 -- -- -- -- -- 25 29 BUN -- -- -- -- -- 15 18 CREATININE -- -- -- -- -- 0.94 0.84 CAION 1.27 -- 1.07* -- 1.15 -- -- MG -- -- -- -- 2.4 -- -- PHOS -- -- -- -- 4.1 -- -- < > = values in this interval not displayed. Coags: No results for input(s): PROTIME, INR, PTT in the last 72 hours. EKG - NSR with LBBB that is not new Assessment: Jose Cheung is a(n) 68 y.o. old male who was admitted for multivessel disease and severe aortic regurgitation on 05/14/2019. He is POD#3 s/p CABG x2 (GSVG - OM and GSVG - PDA) and AVR. Now, on pathway and doing well. Still having some SOB with lying flat. May need extra diuresis. 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 I will not be available to answer questions for this patient's care. Please contact the on- call resident through PAS. Thank you. Associated attestation - Tra Hurt MD - 05/25/2019 1058 EDT Attestation: I saw and examined the patient 05/25/19. I agree with the resident's/fellow's findingsand plans as documented. Some shortness of breath when lying flat, but on RA currently. No diastolic murmur that I could detect on my exam. CXR improved compared to prior to surgery and immediately postop. Will give him an additional lasix IV dose in addition to his po. Tra Hurt MD 05/25/2019 10:54 * Amara Valdivia RN - 05/25/2019 0613 EDT Data: POD 3 CABG and AVR. Tubes.wires removed. R is NSR tele, 1st degree. Lungs are diminished. Patient o2 SAT drops when he lays flat, unable to tolerate. Skin is intact. Voiding in urinal All PVR's<200 on my shift. Action: Slept overnight in recliner. Patient cannot tolerate the bed. Daughter at the bedside overnight. Response: Call light is within reach. Independent in room. Skin is intact. AMARA VALDIVIA RN 05/25/2019 6:14 * Law Piña RN - 05/24/2019 0934 EDT 930 called report to hale Gloria Rivers received report will ready Pt for transfer * Nolan Moctezuma MD - 05/24/[address] Surgery Progress Note Admit Date: 05/14/2019 LOS: 10 days CC: <principal problem not specified> POD# 2 (05/22/2019) S/p AVR (tissue) and CABG x2 (v-OM, v-PDA) Subjective: 24-Hour Events: On pathway Subjective: Extubated, conversant, NAD. He is doing quite well, up in chair, some pain over sternotomy. He is using his IS regularly. He denies SOB, chills, night sweats, or crushing chest pains. Meds MAR Reviewed Objective: Vitals: BP 108/70 (BP Cuff Location: Left arm) Pulse 70 Temp 36.2 ??C (97.1 ??F) (Oral) Resp 25 Ht 167.6 cm (65.98) Wt 72.8 kg (160 lb 9.6 oz) SpO2 98% BMI 25.93 kg/m?? BP: (90-125)/(64-86) () Pulse: -- () Temp: [36.2 ??C (97.1 ??F)-36.8 ??C (98.2 ??F)] () Resp:[14-35] () SpO2: [87 %-98 %] () Admission weight: Weight : 76.2 kg (168 lb) Most recent weight: Weight : 72.8 kg (160 lb 9.6 oz) Patient is on room air Intake/Output Summary (Last 24 hours) at 05/24/2019 0829 Last data filed at 05/24/2019 0700 Gross per 24 hour Intake 1210 ml Output 1382 ml Net -172 ml I/O for Current Shift: 05/24 0700 - 05/24 1459 In: - Out: 35 [Urine:35] Exam Gen: alert, conversant, NAD Heart: RRR Lungs: CTAB, incision C/D/I, chest tube w/serosang drainage & no airleak Abd: S, NT, ND : garcia in place with yellow/clear urine Ext: WWP, trace LE edema bilaterally, DP and PT pulses bilaterally Neuro: AAOx3, moves all extremities to command. LUE with regular low-impulse twitch that is improved today Data Review CBC: Recent Labs 05/22/19 19305/23/195 05/24/19414 WBC 11.96* 9.46 11.18* RBC 4.29* 4.19* 3.79* HGB 13.5* 13.2* 12.1* HCT 39.0* 38.2* 34.1* MCV 91 91 90 MCH 31.5 31.5 31.9 MCHC 34.6 34.6 35.5 PLT 190 193 144 BMP: Recent Labs 05/22/19 0544 05/22/19 1231 05/22/19 1339 05/22/19 2138 05/23/19 0415 05/24/19414 NA 138 < > 140 -- -- -- -- 135* 131* K 4.5 < > 3.8 < > -- < > 5.0 5.3* 4.6 CL 102 -- -- -- -- -- -- 105 98 CO2 31 -- -- -- -- -- -- 25 29 BUN -- -- -- -- -- -- -- 15 18 CREATININE 0.95 -- -- -- -- -- -- 0.94 0.84 CAION -- < > 1.27 -- 1.07* -- 1.15 -- -- MG 2.3 -- -- -- -- -- 2.4 -- -- PHOS -- -- -- -- -- -- 4.1 -- -- < > = values in this interval not displayed. Coags: No results for input(s): PROTIME, INR, PTT in the last 72 hours. Assessment: Jose Cheung is a(n) 68 y.o. old male who was admitted for multivessel disease and severe aortic regurgitation on 05/14/2019. He is POD#2 s/p CABG x2 (GSVG - OM and GSVG - PDA) and AVR. Now, on pathway and doing well. He has been extubate and is ORA, hemodynamically stable off pressure support. His HIV medications were restarted and his transfer orders have been placed. With continued hemodynamic stability, plan to move him to the floor when a bed becomes available. 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 I agree with the resident's/fellow's findingsand plans as documented. On pathway. Tra Hurt MD 05/24/2019 11:07 * Hamlet Barajas MD - 05/23/[address] Surgery Progress Note Admit Date: 05/14/2019 LOS: 9 days CC: <principal problem not specified> POD# 1 (05/22/2019) S/p AVR (tissue) and CABG x2 (v-OM, v-PDA) Subjective: 24-Hour Events: On pathway Arrived to SICU at 1330 on 05/22, intubated, sedated. Weaned and extubated. D/c A- line, SLIC. CXR andEKG stable. Diet ordered and transfer orders in. No Endo consult (A1C 5.8) -Short run of VT that he felt overnight. He reports feeling these at home, they are not uncomfortable, he is just aware of them. -New twitching in LUE today. he's never had this before. Subjective: Extubated, conversant, NAD. He is doing quite well, up in chair, talkative and feeling only minimal discomfort over his sternotomy. He denies SOB, chills, night sweats, or crushing chest pains. Meds MAR Reviewed Objective: Vitals: BP 109/74 Pulse 70 Temp 36.6 ??C (97.9 ??F) Resp 15 Ht 167.6 cm (65.98) Wt 72.8 kg (160 lb 9.6 oz) SpO2 95% BMI 25.93 kg/m?? BP: (89-117)/(57-76) () Pulse: -- () Temp: [35.9 ??C (96.7 ??F)-36.8 ??C (98.2 ??F)] () Resp:[12-31] () SpO2: [93 %-100 %] () Admission weight: Weight : 76.2 kg (168 lb) Most recent weight: Weight : 72.8 kg (160 lb 9.6 oz) Patient is on room air Intake/Output Summary (Last 24 hours) at 05/23/2019 1204 Last data filed at 05/23/2019 1100 Gross per 24 hour Intake 4233.81 ml Output 1778 ml Net 2455.81 ml I/O for Current Shift: 05/23 0700 - 05/23 1459 In: 700 [P.O.:700] Out: 124 [Urine:94] Exam Gen: alert, conversant, NAD Heart: RRR Lungs: CTAB, incision C/D/I, chest tube w/serosang drainage & no airleak Abd: S, NT, ND : garcia in place with yellow/clear urine Ext: WWP, trace LE edema bilaterally, DP and PT pulses bilaterally Neuro: AAOx3, moves all extremities to command. LUE with regular low-impulse twitch, isolated to the forearm, that does not change with use. Data Review CBC: Recent Labs 05/22/19133405/22/19193305/23/19414 WBC 12.03* 11.96* 9.46 RBC 3.91* 4.29* 4.19* HGB 12.3* 13.5* 13.2* HCT 35.2* 39.0* 38.2* MCV 90 91 91 MCH 31.5 31.5 31.5 MCHC 34.9 34.6 34.6 PLT 184 190 193 BMP: Recent Labs 05/21/19 0539 05/22/19 0544 05/22/19 1149 05/22/19 1231 05/22/199 05/22/19193305/22/19213705/23/195 NA 138 138 < > 139 140 -- -- -- -- 135* K 4.3 4.5 < > 4.2 3.8 < > -- 5.2* 5.0 5.3* CL 102 102 -- -- -- -- -- -- -- 105 CO2 32 31 -- -- -- -- -- -- -- 25 BUN -- -- -- -- -- -- -- -- -- 15 CREATININE 1.05 0.95 -- -- -- -- -- -- -- 0.94 CAION -- -- < > 1.00* 1.27 -- 1.07* -- 1.15 -- MG 2.3 2.3 -- -- -- -- -- -- 2.4 -- PHOS -- -- -- -- -- -- -- -- 4.1 -- < > = values in this interval not displayed. Coags: No results for input(s): PROTIME, INR, PTT in the last 72 hours. Assessment: Jose Cheung is a(n) 68 y.o. old male who was admitted for multivessel disease and severe aortic regurgitation on 05/14/2019. He is POD#1 s/p CABG x2 (GSVG - OM and GSVG - PDA) and AVR. Now, on pathway and doing well. He has been extubate and is ORA, hemodynamically stable off pressure support. His HIV medications were restarted today and his transfer orders have been placed. With continued hemodynamic stability, plan to move him to the floor when a bed becomes available. Plan: - Transfer to floor - Lasix 20 mg PO BID, KCl 20 mEq - Lopressor 12.5 mg PO BID - ASA 81mg, Lipitor 20 mg - d/c A-line and SLIC Cardiac surgery pathway: POD#0: [x] CXR, EKG, potassium and cbc x 2, wean to extubate POD#1: [x] extubated, CXR, lasix, lopressor, d/c SLIC, d/c a-line, transfer to floor POD#2: [ ] d/c CT, garcia, cordis, start DVT prophy POD#3: [ ] stop insulin gtt, ekg, CXR NOLAN MOCTEZUMA MD Attestation statement: I saw and examined the patient. I agree with Dr. Moctezuma's findings and plans as documented. Hamlet Barajas MD, FACS ' * Gracy Cortez MD - 05/23/2019 9815 EDT INFECTIOUS DISEASES CONSULT SERVICE PROGRESS NOTE CHIEF COMPLAINT/ID:?? 68 yo male patient diagnosed with HIV in March 2019 admitted with severe aortic regurgitation EVENTS: 05/22/19: TAVR and CABG Subjective: feels good; mouth a little dry; hungry. No fevers, chills, nausea/vomiting/diarrhea. REVIEW OF SYSTEMS: 10-point review of systems is negative except as mentioned above Please refer to the initial ID Consult Note obtained on 05/15/19 for Medical/Family/Social History. I have reviewed this information and there is no significant change from prior. Antimicrobials: Biktarvy 1 tablet p.o. daily starting 26 April until present ?? PRIOR: Fluconazole 100 mg p.o. daily since early April until 05/15/19 PHYSICAL EXAM: VS: BP 109/74 Pulse 70 Temp 36.6 ??C (97.9 ??F) Resp 15 Ht 167.6 cm (65.98) Wt 72.8 kg (160 lb 9.6 oz) SpO2 95% BMI 25.93 kg/m?? GENL: pleasant, NAD EENT: sclerae anicteric, moist mucous membranes NECK: supple ABDM: soft, non-tender CHEST: incision site examined without notable abnormalities PULM: CTA, constance MSK: no joint swelling or erythema EXTR: warm and well perfused SKIN: no rash, no obvious jaundice NEURO: awake PSYCH: non-anxious LABORATORY: Reviewed in detail in PRISM. ?? GFR 83 HLA B27 neg ?? MICROBIOLOGY DATA: Reviewed in detail in PRISM. Pertinent for: ?? 05/14/19 BC x 2 sets: no growth 05/16/19 syphilis serology: negative 05/16/19 HIV quant: 386 copies/ml 05/16/19 CD4: 616 05/20/19 MRSA PCR: no staph aureus ?? IMAGING DATA:?I have independently reviewed the available imaging. May: TTE: EF 60-65%; no right to left atrial shunt May CT chest: atelectasis; no interstitial lung dz 15 May SI joint plain films: No evidence of sacroiliitis. 15 May transesophageal echo, severe aortic regurg, there is no evidence of endocarditis. 14 May chest x-ray bibasilar linear opacities consistent with scarring or atelectasis. 14 May EKG normal sinus rhythm ?? ASSESSMENT/RECOMMENDATIONS:?? 68 yo male patient with newly diagnosed HIV whose profile is notable for severe aortic regurgitation. Multiple team members have attempted to understand the etiology for his valvular dystrophy. Some possibility that this is severe vascular manifestation secondary to an older age of onset/diagnosis of HIV. He does not have syphilis. Some consideration for ankylosing spondylitis but his films do not demonstrate this well and of note, HLA B27 is also negative. ?? Patient is status post CABG and TAVR. CAD: -placed on ASA, atorvastatin ID: -continue bictegravir/emtricitabine/tenofovir -lipids, A1C in the next few weeks -viral load in another 3-4 weeks to ensure downtrend to undetectable status ID will sign off for now. Please ensure he has follow up in ID/HIV clinic (Dr. Guy Parker or me). Please contact us again if questions arise. Gracy Cortez MD, MPH Infectious Disease * Rodríguez Mcarthur MD - 05/23/2019 1023 EDT CTSICU Attending Brief Note Attending Attestation: I was asked by Hamlet Barajas MD to consult on this critically ill patient. My involvement was required to monitor and direct the critical care that has been provided for the aforementioned life-threatening insults. I have seen and examined the patient with the resident on 05/23/2019 and I agree with their assessment and plan. Active Problems: Aortic valve regurgitation POD 1 s/p AVR/CABG; extubated yesterday; weaned of enoch ggt; now in NSR; taking PO; resume home HAART regiment; start PO lasix and metoprolol today; can transfer to floor today. I spent greater than 20 minutes rendering critical care to this patient, exclusive of procedures. Rodríguez Mcarthur MD 05/23/2019 10:24 * Daniela Harper RN - 05/23/2019 0745 EDT 0700: This RN assumed care for patient alongside JONG Foy. Patient sitting up in chair, in good spirits, reporting moderate incisional pain. NSR on monitor, VSS. 1200: Transfer orders in place. A-line removed, slic d/c'd from introducer. Patient in bed at this time, calm and cooperative with care. Tolerating PO intake. Family visiting at bedside. Data: POD 1 AVR/CAGB. VSS. Transfers with ease to chair and back to bed. Pain controlled. Urine output trending down to 20cc/hr, CT surg resident made aware. CT to LCWS. Incision to chest, and R leg ELAN with skin adhesive. Action: Use of IS encouraged. Hourly rounding provided. Patient and family informed in plan of care, including plan to transfer to floor possibly by today. PO intake of food and fluids encouraged. Response: Uneventful shift, vitals remain stable. Awaiting bed for transfer. Urine output now up to35-80 ml/hr. Daniela Harper RN 05/23/2019 12:02 * Puneet Vizcarra RT - 05/22/2019 1844 EDT Respiratory Extubation Note Pre-procedure - The extubation order and correct patient verified. The procedure was coordinated with the RN. Procedure - The patient's oral pharynx and ETT were suctioned for Secretion Amount: None Secretion Color: Unable to assess and Secretion Consistency: Unable to assess. A cuff leak was present. The patient was placed on 100% resuscitation bag and the ventilator placed in standby. The patient was extubated and placed on O2 Flow Rate (L/min): 2 l/min O2 Device: Nasal cannula. No stridor was noted and the patient was able to produce voice. RT CABRERA 05/22/19 * Puneet Vizcarra RT - 05/22/2019 1746 EDT Respiratory Progress Note Indications for Respiratory therapy: VENT Data Vitals: Heart Rate: 72 BPM, Resp: 13, SpO2: 99 % FIO2/O2 Device: O2 Flow Rate (L/min): 3 l/min, , O2 Device: Intubated, FIO2 %: 30 % RT Orders: ASV-weaning protocols +5 30% Action/Events Respiratory events; Patient currently stable on vent and being taken off sedation. Received a call from radiology to withdrawal ETT and tube was re-taped at 21cm. Currently stable on vent. RT CABRERA 05/22/19 * Law Piña RN - 05/22/2019 1551 EDT 1550 Radiology md called indicated ett in 1.5cm could be pulled back, paged sicu and RT 1552 md Vega aware and indicates ok for RT at bedside to pull ett back 1.5cm and resecure 1634 Pt having more ectopy irritability pacer noted to be pacing near t wave paused pacer and Pt hrNSR 70 bpm Pacer turned off and md Vega at bedside aware 1700 md Mcarthur at bedside updated indicated RT could decrease fio2 but no owen at this time 1810 Pt extubated per md Robledo at bedside with RT * Yulissa Ko, JONG - 05/22/2019 1332 EDT 1327: hypotensive, given fluid bolus 1425: MD performing echo at bedside. Daughters x 3 at bedside and updated * Federico Aguillon - 05/22/2019 0951 EDT Cardiology Progress note Service Date: 05/22/2019 Admit Date: 05/14/2019 12:14 Reason for Admission: 68 y.o. male admitted with a chief complaint of shortness of breath and now with a principal diagnosis of aortic regurgitation. Events/ Procedures in the last 24 Hours: no significant events Subjective/Objective Subjective Mr. Cheung is feeling well today but anxious about his surgery. He has continued to improve with decreasing SOB while supine. He has no complaints today and has not had any chest pain. Review of Systems Pertinent items are noted in Subjective/HPI Objective Vital Signs Patient Vitals for the past 8 hrs: BP Heart Rate Resp Temp SpO2 O2 Device 05/22/19 0312 126/70 83 BPM 16 37.1 ??C (98.8 ??F) 96 % None Weight: Patient Vitals for the past 8 hrs: Weight 05/22/19 0534 72.8 kg (160 lb 9.6 oz) Intake/Output Summary (Last 24 hours) at 05/22/2019 0951 Last data filed at 05/22/2019 0700 Gross per 24 hour Intake -- Output 1000 ml Net -1000 ml Physical Exam General: well appearing,??overweight, no acute distress HEENT: NC/AT, normal sclera and conjunctivae, MMM CV:??RRR with??normal S1/S2, S3 no longer audible, 2/6 high pitched diastolic decrescendo murmur best heard at the upper sternal borders, 2+ radial and DP pulses bilaterally Pulm: normal WOB,??CTAB GI/: abdomen soft,??NTND Neuro/MSK: CAOx4, LOCKHART, normal bulk and tone Skin: NWD with??ecchymosis in left AC at site of multiple blood draws Ext: pitting edema bilaterally to mid-calf, no cyanosis Is PICC or central line present? No, PICC/Central line not present. Medications Reviewed: No changes Labs Reviewed: Results notable for O+ blood with negative antibody screen. CBC: Recent Labs 05/21/19 0539 05/22/19 0544 WBC 5.16 6.69 HGB 14.7 15.8 HCT 42.8 46.4 MCV 92 92 PLT 251 261 BMP: Recent Labs 05/20/19 0537 05/21/19 0539 05/22/19 0544 CREATININE -- 1.05 0.95 NA -- 138 138 K -- 4.3 4.5 CL -- 102 102 CO2 -- 32 31 MG 2.2 2.3 2.3 LFTs: Recent Labs 05/20/19 0537 ALT 33 AST 35 ALKPHOS 62 TBIL 1.1 Non-Invasive Findings last 24 hours: N/A Telemetry: yes, Normal sinus rhythm ECG: N/A Assessment/Plan Assessment/Plan Jose is a 68 y/o male with a history significant for recent HIV diagnosis in March 2019 (initial:??CD4 count 529, viral load 94,797; current: CD4 count 616, viral load 386) on biktarvy,??arthritis,??BPH, uveitis,??and??chronic thrombocytopenia admitted to the cardiology service for severe aortic r egurgitation who is clinically stable. He will remain admitted until CABG and SAVR and then reevaluated. Patient Active Hospital Problem List: Aortic valve regurgitation ?The etiology of his aortic regurgitation remains unclear but the severity is now more clearly identified on DUGLAS. ID advises that there may be a rare association between HIV and aortic regurgitation??due to valvular dystrophy. Given the lack of identifiable vegetation on DUGLAS??and no growth on blood cultures IE can be effectively ruled out. Suspicion for ankylosing spondylitis is decreased following normal SI joints on x-ray??with HLA B27 still pending.??Negative RPR on 04/21/19 and negative treponema antibody during this admission rule out tertiary syphilitic aortitis.??His LHC revealed 80% of the left circumflex and RCA and he is appropriate for vein graft x2. ?- awaiting results of HLA B27 screen ?- OOB as tolerated ?- strict I/O ?- SAVR and CABGx2 today - ASA 81mg PO daily ?Atelectasis ?Atelectasis identified on chest CT is likely due to inactivity which may kavya contributing factor to his SOB in the absence of identifiable pulmonary edema. It is not likely to be a singular cause of his orthopnea. ?- incentive spirometer while awake ?- encourage activity as tolerated ?HIV ?- continue biktarvy 1 tab PO daily ?Chronic arthritis ?- APAP 1000mg PO Q8 ?FEN ?- NPO until after procedure then cardiac diet ?BPH ?- tamsulosin 0.4mg PO daily ?Insomnia ?- melatonin 3mg PO daily ?Nasal congestion ?- NaCl 0.65% nasal spray PRN VTE Prophylaxis Pharmacologic Prophylaxis: Enoxaparin (Lovenox) 40 mg SQ daily Discharge Plan Remain admitted for CABG and SAVR today then reevaluation tomorrow, possible discharge early next week Federico Aguillon 05/22/2019 9:51 * Kelsey Steiner RN - 05/22/2019 0756 EDT Pre Op Nurse to inpatient unit. Plan verified with inpatient nurse Liset Pre Op documentation completed in manager [employer] and [employer] Pre Op flow sheet. IV Access Right arm 16g and 18 g - flushed. Left arm 22g - flushed Site marked and verified (if indicated) n/a Labs UPT (if applicable) Pre Op medication plan established. cefzol ordered. Approp am meds to be Given. On antivirals for recent HIV diagnosis. Anesthesia Consent yes Surgical Consent yes Booking verified yes MD notified if needed OR Room for nursing report ext [phone] Internal Control Charge Nurse for report if unable to reach nurse in OR room [phone] Other issues identified . No hardware implants. He will give his glasses to his daughters. Pre Op PIC Nurse [phone] * Rhea Lucas DO - 05/22/2019 0659 EDT Cardiology Progress note Service Date: 05/22/2019 Admit Date: 05/14/2019 12:14 Reason for Admission: 68 y.o. male admitted with a chief complaint of subacute progressive FOSTER and now with a principal diagnosis of aortic regurgitation. Events/ Procedures in the last 24 Hours: - NPO after midnight for CABG with AVR on 05/22 Subjective/Objective Subjective Patient reports feeling well this morning. Reports significant improvements in orthopnea, using spirometry regularly. Ambulating within the room and down the polk without dyspnea, lightheadedness or dizziness. Reports improvements in chronic right hip/knee pain with change in tylenol dose frequencyon 05/21. Denies lower extremity swelling. Tolerating regular diet and voiding without difficulty. Nonausea or vomiting. Review of Systems A complete 10 point review of systems was obtained with pertinent findings noted in HPI otherwise negative Objective Vital Signs Patient Vitals for the past 8 hrs: BP Heart Rate Resp Temp SpO2 O2 Device 05/22/19 0312 126/70 83 BPM 16 37.1 ??C (98.8 ??F) 96 % None Weight: Patient Vitals for the past 8 hrs: Weight 05/22/19 0534 72.8 kg (160 lb 9.6 oz) Intake/Output Summary (Last 24 hours) at 05/22/2019 0659 Last data filed at 05/21/2019 1400 Gross per 24 hour Intake -- Output 150 ml Net -150 ml Physical Exam General appearance: elderly gentleman, alert, cooperative, no distress Skin: Color, temperature normal. No rashes or lesions on visible skn HEENT: MMM, no scleral icterus Lungs: Decreased breath sounds in bilateral bases, no crackles, no wheezes Heart: RRR, S1, S2 normal, soft diastolic murmur Abdomen: soft, non-tender : No Garcia present Neurologic: moving all extremities spontaneously, no facial droop or dysarthria Extremities: Bilateral lower extremity trace edema Is PICC or central line present? No, PICC/Central line not present. Medications Available for review in [facility]. Labs CBC: Recent Labs 05/21/19 0539 05/22/19543 WBC 5.16 6.69 HGB 14.7 15.8 HCT 42.8 46.4 MCV 92 92 PLT 251 261 BMP: Recent Labs 05/20/19 0537 05/21/1939 05/22/19543 CREATININE -- 1.05 0.95 NA -- 138 138 K -- 4.3 4.5 CL -- 102 102 CO2 -- 32 31 MG 2.2 2.3 2.3 Imaging: DUGLAS 05/15 1. Left ventricle: The cavity size was normal. Wall thickness was normal. Systolic function was normal. The estimated ejection fraction was 55-60%. Wall motion was normal; there were no regional wall motion abnormalities. 2. Right ventricle: The cavity size was normal. Wall thickness was normal. Systolic function was normal. 3. Aortic valve: Trileaflet; mildly thickened leaflets. There was an eccentric jet of severe regurgitation directed towards the mitral anterior leaflet. Severity was suggested by diastolic flow reversal in the ascending aorta. [facility] 05/21: Left main: normal Left anterior descending: large, dominant. MLI. Left circumflex: Large, non-dominant. 80% mid LCx disease. Right coronary artery: large, dominant. 80% mid RCA disease, followed by a significant distal RCA narrowing. Grafts: none Assessment/Plan Assessment/Plan Jose Cheung is a 68M PMH recently diagnosed HIV (CD4 529), bilateral uveitis who presents with subacute progressive dyspnea and orthopnea associated with inflammatory lower back pain, now found tohave aortic regurgitation of unknown etiology. Found to have 80% LCX and 80% RCA on [facility]. Plans for CABG and AVR on 05/22 at 830am. Unable to tolerate initial CTA due to orthopnea, tolerated LHC well after initial diuresis and spirometry; does not appear hypervolemic on examination with underlying question of cardiac vs. pulmonary vs. hepatic pathology. CT demonstrated paucity of pulmonary edema. Aortic insufficiency: Aortic valve trileaflet; mildly thickened leaflets with severe regurgitation;EF 55%. Per ID, could be due to acute HIV infection, especially in a male >50 years of age. Ankylosing spondylitis less likely given normal CRP, no sacroiliac inflammation on imaging, no aortic dilatation. No evidence of endocarditis on imaging, blood cultures with NGTD. - Plans for surgical valve replacement on 05/22 at 830am - Orthopnea improving - Continue PO furosemide 20mg daily for maintenance of trace LE edema; unlikely to resolve orthopnea given paucity of pulmonary edema on CT - Daily weights, I/Os, Cr - F/u HIV labs as outlined below CAD - Found to have 80% LCX and 80% RCA on LHC - Plans for CABG on 05/22 at 830am - Lipid panel and Hba1c ordered - OK to start statin with HIV meds per ID note ?? HIV: Presumably contracted from female sexual partner in [facility]. On Biktarvy, CD4 529. Possibly related to aortic dystrophy (see ID note). 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 Describes inflammatory symptoms in SI joint and has SI tenderness. Gets better with warm baths, icing. CRP wnl, no evidence of SI disease onx-ray. Right knee/hip pain improved today with change in tylenol dose frequency. - HLA B27 negative - Acetaminophen 500mg q4hrs ?? 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 VTE Prophylaxis: Pharmacologic Prophylaxis: Enoxaparin (Lovenox) 40 mg SQ daily Discharge Plan: Uncertain at this time Rhea Lucas DO, MPH Family Medicine PGY1, Page #[phone] 05/22/19, 10:08 * Gracy Cortez MD - 05/21/2019 1343 EDT INFECTIOUS DISEASES CONSULT SERVICE PROGRESS NOTE CHIEF COMPLAINT/ID: 68 yo male patient diagnosed with HIV in March 2019 admitted with severe aortic regurgitation EVENTS: no major events but heading to the OR on 05/22/19 Subjective: feels ready to have CABG and AVR; denies any fevers, chills, sweats, cough, n/v/d. REVIEW OF SYSTEMS: 10-point review of systems is negative except as mentioned above Please refer to the initial ID Consult Note obtained on 05/15/19 for Medical/Family/Social History. I have reviewed this information and there is no significant change from prior. Antimicrobials: Biktarvy 1 tablet p.o. daily starting 26 April until present PRIOR: Fluconazole 100 mg p.o. daily since early April until 05/15/19 PHYSICAL EXAM: VS: BP 122/70 (BP Cuff Location: Left arm, Patient Position: Sitting) Pulse 70 Temp 36.2 ??C (97.2 ??F) (Tympanic) Resp 18 Ht 167.6 cm (66) Wt 76.2 kg (168 lb) SpO2 96% BMI 27.12 kg/m?? GENL: pleasant, NAD EENT: sclerae anicteric, moist mucous membranes NECK: supple EXTR: warm and well perfused SKIN: no rash, no obvious jaundice NEURO: awake PSYCH: non-anxious LABORATORY: Reviewed in detail in PRISM. GFR 73 LFTs: normal HLA B27 neg MICROBIOLOGY DATA: Reviewed in detail in PRISM. Pertinent for: 05/14/19 BC x 2 sets: no growth 05/16/19 syphilis serology: negative 05/16/19 HIV quant: 386 copies/ml 05/16/19 CD4: 616 05/20/19 MRSA PCR: no staph aureus ?? IMAGING DATA:?? I have independently reviewed the available imaging. May: TTE: EF 60-65%; no right to left atrial shunt May CT chest: atelectasis; no interstitial lung dz 15 May SI joint plain films: No evidence of sacroiliitis. 15 May transesophageal echo, severe aortic regurg, there is no evidence of endocarditis. 14 May chest x-ray bibasilar linear opacities consistent with scarring or atelectasis. 14 May EKG normal sinus rhythm ASSESSMENT/RECOMMENDATIONS: 68 yo male patient with newly diagnosed HIV whose profile is notable for severe aortic regurgitation. Multiple team members have attempted to understand the etiology for his valvular dystrophy. Some possibility that this is severe vascular manifestation secondary to an older age of onset/diagnosis of HIV. He does not have syphilis. Some consideration for ankylosing spondylitis but his films do not demonstrate this well and of note, HLA B27 is also negative. Cardiac/cardiothoracic colleagues have the following plan for tomorrow, 05/22/19: -left heart cath -aortic valve replacement ID: -continue bictegravir/emtricitabine/tenofovir -statin would not be contraindicated with this regimen -lipids, A1C at some point -viral load in another 3-4 weeks to ensure downtrend to undetectable status Please reach out by cortext if additional questions arise. Gracy Cortez MD, MPH Infectious Disease * Rhea Lucas DO - 05/21/2019 1159 EDT Cardiology Progress note Service Date: 05/21/2019 Admit Date: 05/14/2019 12:14 Reason for Admission: 68 y.o. male admitted with a chief complaint of subacute progressive FOSTER and now with a principal diagnosis of aortic regurgitation. Events/ Procedures in the last 24 Hours: - LHC with 80% LCX and 80% RCA, now plans for CABG with AVR on 05/22 Subjective/Objective Subjective Patient reports feeling well this morning. Still complains of SOB with laying flight though he reports some improvements. Denies SOB with ambulation. Complains of chronic right hip/knee pain. Denies lower extremity swelling. Tolerating regular diet and voiding without difficulty. No nausea or vomiting. Ambulating within the room and down the polk without lightheadedness or dizziness. Review of Systems A complete 10 point review of systems was obtained with pertinent findings noted in HPI otherwise negative Objective Vital Signs Patient Vitals for the past 8 hrs: BP Heart Rate Resp Temp SpO2 O2 Device 05/21/19 0900 122/70 76 BPM 18 36.2 ??C (97.2 ??F) 96 % None Weight: No data found. Intake/Output Summary (Last 24 hours) at 05/21/2019 1200 Last data filed at 05/20/2019 1700 Gross per 24 hour Intake 435 ml Output 222 ml Net 213 ml Physical Exam General appearance: elderly gentleman, alert, cooperative, no distress Skin: Color, temperature normal. No rashes or lesions HEENT: MMM, no scleral icterus Lungs: Decreased breath sounds in bilateral bases, no crackles, no wheezes Heart: RRR, S1, S2 normal, soft diastolic murmur Abdomen: soft, non-tender : No Garcia present Neurologic: moving all extremities spontaneously, no facial droop or dysarthria Extremities: Bilateral lower extremity trace edema Is PICC or central line present? No, PICC/Central line not present. Medications Available for review in [facility]. Labs CBC: Recent Labs 05/19/1918 05/21/19 0539 WBC 5.57 5.16 HGB 14.4 14.7 HCT 42.9 42.8 MCV 93 92 PLT 270 251 BMP: Recent Labs 05/19/1961705/20/19 0537 05/21/19 0539 CREATININE 0.95 -- 1.05 NA 138 -- 138 K 4.3 -- 4.3 CL 102 -- 102 CO2 29 -- 32 MG 2.3 2.2 2.3 Imaging: [facility] 05/15 1. Left ventricle: The cavity size was normal. Wall thickness was normal. Systolic function was normal. The estimated ejection fraction was 55-60%. Wall motion was normal; there were no regional wall motion abnormalities. 2. Right ventricle: The cavity size was normal. Wall thickness was normal. Systolic function was normal. 3. Aortic valve: Trileaflet; mildly thickened leaflets. There was an eccentric jet of severe regurgitation directed towards the mitral anterior leaflet. Severity was suggested by diastolic flow reversal in the ascending aorta. [facility] 05/21: Left main: normal Left anterior descending: large, dominant. MLI. Left circumflex: Large, non-dominant. 80% mid LCx disease. Right coronary artery: large, dominant. 80% mid RCA disease, followed by a significant distal RCA narrowing. Grafts: none Assessment/Plan Assessment/Plan Jose Cheung is a 68M PMH recently diagnosed HIV (CD4 529), bilateral uveitis who presents with subacute progressive dyspnea and orthopnea associated with inflammatory lower back pain, now found tohave aortic regurgitation of unknown etiology. Found to have 80% LCX and 80% RCA on [facility]. Plans for CABG and AVR on 05/22. Unable to tolerate initial CTA due to orthopnea, tolerated [facility] well after initial diuresis and spirometry; does not appear hypervolemic on examination with underlying question of cardiac vs. pulmonary vs. hepatic pathology. CT demonstrated paucity of pulmonary edema. Aortic insufficiency: Aortic valve trileaflet; mildly thickened leaflets with severe regurgitation;EF 55%. Per ID, could be due to acute HIV infection, especially in a male >50 years of age. Ankylosing spondylitis less likely given normal CRP, no sacroiliac inflammation on imaging, no aortic dilatation. No evidence of endocarditis on imaging, blood cultures with NGTD. - Plans for CABG and surgical valve replacement on 05/22 - Orthopnea improving - Continue PO furosemide 20mg daily for maintenance of trace LE edema; unlikely to resolve orthopnea given paucity of pulmonary edema on CT - Daily weights, I/Os, Cr - F/u HIV labs as outlined below ?? [facility]: [facility] On Biktarvy, CD4 529. Possibly related to aortic dystrophy (see ID note). 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 Describes inflammatory symptoms in SI joint and has SI tenderness. Gets better with warm baths, icing. CRP wnl, no evidence of SI disease onx-ray. Patient complains of increased right knee/hip pain today and asked for tylenol to be spaced t hroughout the day. - f/u HLA B27 - Acetaminophen 1000mg q8hrs changed to 500mg q4hrs ?? 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 VTE Prophylaxis: Pharmacologic Prophylaxis: Enoxaparin (Lovenox) 40 mg SQ daily Discharge Plan: Uncertain at this time Rhea Lucas DO, MPH Family Medicine PGY1, Page #[phone] 05/21/19, 10:08 Associated attestation - Jose Stauffer MD - 05/21/2019 1224 EDT I have seen and evaluated the patient. I agree with the assessment and plan as outlined by Dr. Lucas. As noted yesterday: The echo did not reval any evidence of [id number]-er-kuoh shunt (intra-cardiac or intra-pulmonary). 2. LHC revealed a widened pulse pressure c/w severe AI. 3. He has 2 vessel CAD (RCA and circumflex) and will also require CABG. 4. CT surgery is aware of the findings; the plan is for CABG + AVR tomorrow. JOSE STAUFFER MD Attending Finish Remover [facility] * Federico Aguillon - 05/21/2019 0836 EDT Cardiology Progress note Service Date: 05/21/2019 Admit Date: 05/14/2019 12:14 Reason for Admission: 68 y.o. male admitted with a chief complaint of shortness of breath and now with a principal diagnosis of aortic regurgitation. Events/ Procedures in the last 24 Hours: C yesterday (results below), vein mapping for CABG Subjective/Objective Subjective Bill is feeling well today and states that his SOB while supine continues to improve. He states that yesterday he was able to lay flat with his feet in the air to stretch his back. He expresses concerns today about his procedure tomorrow and how his pain will be managed as he does not feel his painis always adequately controlled in the hour prior to his scheduled APAP dose. He otherwise has no complaints. Review of Systems Pertinent items are noted in Subjective/HPI Objective Vital Signs Patient Vitals for the past 8 hrs: BP Heart Rate Resp Temp SpO2 O2 Device 05/21/19 0900 122/70 76 BPM 18 36.2 ??C (97.2 ??F) 96 % None Weight: No data found. Intake/Output Summary (Last 24 hours) at 05/21/2019 1046 Last data filed at 05/20/2019 1700 Gross per 24 hour Intake 435 ml Output 222 ml Net 213 ml Physical Exam General: well appearing, anxious, overweight, no acute distress HEENT: NC/AT, normal sclera and conjunctivae, MMM CV: RRR with normal S1/S2, S3 present, 2/6 high pitched diastolic decrescendo murmur best heard at the upper sternal borders, 3+ radial and DP pulses bilaterally Pulm: normal WOB, CTAB GI/: abdomen soft, NTND Neuro/MSK: CAOx4, LOCKHART, normal bulk and tone Skin: NWD with ecchymosis in left AC at site of multiple blood draws Ext: pitting edema bilaterally to mid-calf, no cyanosis Is PICC or central line present? No, PICC/Central line not present. Medications Reviewed: No changes Labs Reviewed: Results notable for nominal UA. CBC: Recent Labs 05/19/1918 05/21/19 0539 WBC 5.57 5.16 HGB 14.4 14.7 HCT 42.9 42.8 MCV 93 92 PLT 270 251 BMP: Recent Labs 05/19/1918 05/20/19 0537 05/21/19 0539 CREATININE 0.95 -- 1.05 NA 138 -- 138 K 4.3 -- 4.3 CL 102 -- 102 CO2 29 -- 32 MG 2.3 2.2 2.3 LFTs: Recent Labs 05/20/19 0537 ALT 33 AST 35 ALKPHOS 62 TBIL 1.1 LHC: Left main: normal Left anterior descending: large, dominant. MLI. Left circumflex: Large, non-dominant. 80% mid LCx disease. Right coronary artery: large, dominant. 80% mid RCA disease, followed by a significant distal RCA narrowing. Grafts: none Telemetry: yes, Normal sinus rhythm ECG: N/A Assessment/Plan Assessment/Plan Jose is a 68 y/o male with a history significant for recent HIV diagnosis in March 2019 (initial:??CD4 count 529, viral load 94,797; current: CD4 count 616, viral load 386) on biktarvy, arthritis, BPH, uveitis,??and??chronic thrombocytopenia admitted to the cardiology service for severe aortic reg urgitation who is clinically stable. Patient Active Hospital Problem List: Aortic valve regurgitation ?The etiology of his aortic regurgitation remains unclear but the severity is now more clearly identified on DUGLAS. ID advises that there may be a rare association between HIV and aortic regurgitation??due to valvular dystrophy. Given the lack of identifiable vegetation on DUGLAS and no growth on blood cultures IE can be effectively ruled out. Suspicion for ankylosing spondylitis is decreased following normal SI joints on x-ray with HLA B27 still pending.??Negative RPR on 04/21/19 and negative treponema antibody during this admission rule out tertiary syphilitic aortitis.??HisLHC revealed 80% of the left circumflex and RCA and he is appropriate for vein graft x2. ?- awaiting results of HLA B27 screen ?- OOB as tolerated ?- strict I/O - SAVR and CABGx2 05/22 - ASA 81mg PO daily ?Atelectasis ?Atelectasis identified on chest CT is likely due to inactivity which may kavya contributing factor to his SOB in the absence of identifiable pulmonary edema. It is not likely to be a singular cause of his orthopnea. ?- incentive spirometer while awake ?- encourage activity as tolerated ?HIV ?- continue biktarvy 1 tab PO daily ?Chronic arthritis ?- APAP 1000mg PO Q8 ?FEN ?- cardiac diet??until midnight then NPO for LHC tomorrow ?BPH ?- tamsulosin 0.4mg PO daily ?Insomnia ?- melatonin 3mg PO daily ?? Nasal congestion - NaCl 0.65% nasal spray PRN VTE Prophylaxis Pharmacologic Prophylaxis: Enoxaparin (Lovenox) 40 mg SQ daily Discharge Plan Uncertain at this time Federico Aguillon 05/21/2019 10:46 * Maryam Sousa RN - 05/20/2019 1603 EDT I met with this patient on [address] Barajas to see this patient today or tomorrow. Cardiac Surgery Nursing Pre-Operative Teaching Inpatient Surgical Procedure: CABGX2, AVR Surgical Procedure Date and Time: May at 8:30am Surgeon: Dr. Barajas Patient Education Topic: Cardiac Surgery Informational Materials Method: Demonstration, Handouts, Verbal, Video The following Cardiac Surgery Patient Educational Information was given to the patient with the review today: Review of anticipated Hospital Course and post-operative pain management reviewed verbally. YES Inspirometer demonstrated and given for practice pre-operatively. Patient will use pre-operatively in inpatient setting or as per Inpatient Pre-Operative Guidelines. Patient instructed to use post-operatively every 1-2 hours 10 cycles each time post-operatively. YES CABG Description Handout given for review YES Emergency Handling How to Handle a Sudden Heart Problem Handout given for Review YES Valve Description Booklet (Mechanical & Tissue Valve) given for review. Valve types with risks and longevity information and consent reviewed by Surgeon YES Coumadin Medication Guide given and reviewed with patient if Mechanical Valve Utilized YES Antibiotic Prophylaxis Handout [employer] for Prevention of Infective Bacterial Endocarditis given and reviewed YES Recovering at Home Following Your Heart Surgery DVD and Addendum Handout (with updates) given and instructed to view and review prior to surgery YES Cardiac Nutrition Basics given for review Resource Center Handout given for review Web Site Listing Handout given for review Lodging List given for review Physical Activity for the Patient Following Cardiac Surgery Handout given for review Smoking Cessation Information Handout given for review. Inpatient Team to order consultation or as per their orders. 10 lb sternotomy (no lift, push, pull greater than 10 lbs) restriction reviewed: 12 weeks from surgery date for full-sternotomy No driving x 4 weeks post-operatively or until the Provider approves reviewed No work 6 - 12 weeks post-operatively with confirmation at post-operative visit with Surgeon reviewed YES Initial Discharge Planning from Surgery Information: Patient is followed by Inpatient Case Management who will determine needs with Inpatient Team and Patient. Taught to: Patient and his daughter Barriers to Learning: none Outcomes: Patient is independent of ADLs and has family support post-op. P) As above Patient to continue to review pre-operative teaching information, view video with teaching to continue in the Inpatient Setting by Inpatient Nursing Staff. Call CT Surgery Inpatient Team if questions regarding teaching Patient to practice using inspirometer as instructed by Inpatient Nursing Staff * Rhea Lucas DO - 05/20/2019 1110 EDT Cardiology Progress note Service Date: 05/20/2019 Admit Date: 05/14/2019 12:14 Reason for Admission: 68 y.o. male admitted with a chief complaint of subacute progressive FOSTER and now with a principal diagnosis of aortic regurgitation. Events/ Procedures in the last 24 Hours: - On 9/2 O2 sats to 84% within minute of supine - On 9/3 O2 sats to 90% at 3 minutes supine without further desaturation Subjective/Objective Subjective Patient reports feeling well this morning, a bit anxious about his upcoming C. Still complains ofSOB with laying flight though he reports some improvements. Denies SOB with ambulation. Denies lower extremity swelling. Tolerating regular diet and voiding without difficulty. No nausea or vomiting.Ambulating within the room and down the polk without lightheadedness or dizziness. Review of Systems A complete 10 point review of systems was obtained with pertinent findings noted in HPI otherwise negative Objective Vital Signs Patient Vitals for the past 8 hrs: BP Resp Temp SpO2 O2 Device 05/20/19 0824 (!) 146/71 18 36.7 ??C (98.1 ??F) 99 % None Weight: No data found. Intake/Output Summary (Last 24 hours) at 05/20/2019 1111 Last data filed at 05/20/2019 0000 Gross per 24 hour Intake 240 ml Output 925 ml Net -685 ml Physical Exam General appearance: elderly gentleman, alert, cooperative, no distress Skin: Color, temperature normal. No rashes or lesions HEENT: MMM, no scleral icterus Lungs: Decreased breath sounds in bilateral bases, no crackles, no wheezes Heart: RRR, S1, S2 normal, soft diastolic murmur Abdomen: soft, non-tender : No Garcia present Neurologic: moving all extremities spontaneously, no facial droop or dysarthria Extremities: Bilateral lower extremity trace edema Is PICC or central line present? No, PICC/Central line not present. Medications Available for review in [facility]. Labs CBC: Recent Labs 05/18/19 0543 05/19/19 0618 WBC 7.19 5.57 HGB 15.1 14.4 HCT 43.8 42.9 MCV 91 93 PLT 277 270 BMP: Recent Labs 05/18/19 0543 05/19/19 0618 05/20/19 0537 CREATININE 1.02 0.95 -- NA 138 138 -- K 4.2 4.3 -- CL 102 102 -- CO2 32 29 -- MG 2.2 2.3 2.2 Imaging: DUGLAS 05/15 1. Left ventricle: The cavity size was normal. Wall thickness was normal. Systolic function was normal. The estimated ejection fraction was 55-60%. Wall motion was normal; there were no regional wall motion abnormalities. 2. Right ventricle: The cavity size was normal. Wall thickness was normal. Systolic function was normal. 3. Aortic valve: Trileaflet; mildly thickened leaflets. There was an eccentric jet of severe regurgitation directed towards the mitral anterior leaflet. Severity was suggested by diastolic flow reversal in the ascending aorta. Assessment/Plan Assessment/Plan Jose Cheung is a 68M PMH recently diagnosed HIV (CD4 529), bilateral uveitis who presents with subacute progressive dyspnea and orthopnea associated with inflammatory lower back pain, now found tohave aortic regurgitation of unknown etiology, awaiting LHC prior to schedule surgical AVR on 05/22. Unable to tolerate initial CTA due to orthopnea; does not appear hypervolemic on examination with underlying question of cardiac vs. pulmonary vs. hepatic pathology. CT demonstrated paucity of pulmonary edema; however, evidence of calcium on CT. Likely requires LHC. Aortic insufficiency: Aortic valve trileaflet; mildly thickened leaflets with severe regurgitation;EF 55%. Per ID, could be due to acute HIV infection, especially in a male >50 years of age. Ankylosing spondylitis less likely given normal CRP, no sacroiliac inflammation on imaging, no aortic dilatation. No evidence of endocarditis on imaging, blood cultures with NGTD. - Plans for LHT on 05/20 and surgical valve replacement on 05/22 - Orthopnea improving but still present, LFTs ordered and prior 05/08 RUQ US requested to be faxed from [facility] - Continue PO furosemide 20mg daily for maintenance of trace LE edema; unlikely to resolve orthopnea given paucity of pulmonary edema on CT - Daily weights, I/Os, Cr - F/u CT surgery recs - F/u HIV labs as outlined below ?? HIV: Presumably contracted from female sexual partner in [facility]. On Biktarvy, CD4 529. Possibly related to aortic dystrophy (see ID note). 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 Describes inflammatory symptoms in SI joint and has SI tenderness. Gets better with warm baths, icing. CRP wnl, no evidence of SI disease onx-ray. - f/u HLA B27 - Acetaminophen 650mg q4h PRN ?? 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 VTE Prophylaxis: Pharmacologic Prophylaxis: Enoxaparin (Lovenox) 40 mg SQ daily Discharge Plan: Uncertain at this time Rhea Lucas DO, MPH Family Medicine PGY1, Page #[phone] 05/20/19, 10:08 Associated attestation - Jose Stauffer MD - 05/20/2019 1741 EDT I have seen and evaluated the patient. I agree with the assessment and plan as outlined by Dr. Lucas. The echo did not reval any evidence of [id number] shunt (intra-cardiac or intra-pulmonary). 2. LHC revealed a widened pulse pressure c/w severe AI. 3. He has 2 vessel CAD and will also require CABG. 4. CT surgery is aware of the findings. JOSE STAUFFER MD Attending Finish Remover [facility] Time spent: 45 minutes * Federico Aguillon - 05/20/2019 0757 EDT Cardiology Progress note Service Date: 05/20/2019 Admit Date: 05/14/2019 12:14 Reason for Admission: 68 y.o. male admitted with a chief complaint of shortness of breath and now with a principal diagnosis of aortic regurgitation. Events/ Procedures in the last 24 Hours: no significant events Subjective/Objective Subjective Bill is feeling anxious today regarding his LHC. He states that he still has orthopnea but feels itcontinues to improve. He has no other complaints today. He has not had any CP, dizziness, N/V. Review of Systems Pertinent items are noted in Subjective/HPI Objective Vital Signs T: 36.5, HR: 84, BP: 125/66, RR: 16, SpO2 96% Intake/Output Summary (Last 24 hours) at 05/20/2019 0945 Last data filed at 05/20/2019 0000 Gross per 24 hour Intake 240 ml Output 1525 ml Net -1285 ml Physical Exam General: well appearing, anxious, overweight, no acute distress HEENT: NC/AT, normal sclera and conjunctivae, MMM CV: RRR with normal S1/S2, S3 present, 2/6 high pitched diastolic decrescendo murmur best heard at the upper sternal borders, 3+ radial and DP pulses bilaterally Pulm: normal WOB, CTAB, supine SpO2 challenge revealed decreased SpO2 from 99% seated to 88% supineafter 2.5 minutes GI/: abdomen soft, NTND Neuro/MSK: CAOx4, LOCKHART, normal bulk and tone Skin: NWD with ecchymosis in left AC at site of multiple blood draws Ext: pitting edema bilaterally to mid-calf, no cyanosis Is PICC or central line present? No, PICC/Central line not present. Medications Reviewed: Changes notable for hold furosemide until after LHC Labs Reviewed: Results notable for normal LFTs. CBC: Recent Labs 05/18/1943 05/19/19617 WBC 7.19 5.57 HGB 15.1 14.4 HCT 43.8 42.9 MCV 91 93 PLT 277 270 BMP: Recent Labs 05/18/19 0543 05/19/1961705/20/19 0537 CREATININE 1.02 0.95 -- NA 138 138 -- K 4.2 4.3 -- CL 102 102 -- CO2 32 29 -- MG 2.2 2.3 2.2 LFTs: Recent Labs 05/20/19 0537 ALT 33 AST 35 ALKPHOS 62 TBIL 1.1 Non-Invasive Findings last 24 hours: N/A Telemetry: yes, Normal sinus rhythm ECG: N/A Assessment/Plan Assessment/Plan Jose is a 68 y/o male with a history significant for recent HIV diagnosis in March 2019 (initial:CD4 count 529, viral load 94,797; current: CD4 count 616, viral load 386) on biktarvy, arthritis, BPH, uveitis, and chronic thrombocytopenia admitted to the cardiology service for severe aortic regurg itation who is clinically stable. Patient Active Hospital Problem List: Aortic valve regurgitation ?The etiology of his aortic regurgitation remains unclear but the severity is now more clearly identified on DUGLAS. ID advises that there may be a rare association between HIV and aortic regurgitation due to valvular dystrophy. Given the lack of identifiable vegetation on DUGLAS and no growth on blood cultures IE can be effectively ruled out. Suspicion for ankylosing spondylitisis decreased following normal SI joints on x-ray with HLA B27 still pending. Negative RPR on 04/21/19and negative treponema antibody during this admission rule out tertiary syphilitic aortitis. Surgery has requested coronary CT angiogram prior to SAVR consideration which patient was unable to complete due to orthopnea. He will now undergo LHC today under general anesthesia. ?- awaiting results of HLA B27 screen ?- discontinue??furosemide 20mg??PO daily ?- OOB as tolerated ?- strict I/O - LHC today - SAVR 05/22 ?? Atelectasis Atelectasis identified on chest CT is likely due to inactivity which may be a contributing factor to his SOB in the absence of identifiable pulmonary edema. It is not likely to be a singular cause ofhis orthopnea. - incentive spirometer while awake - encourage activity as tolerated Shortness of breath His SOB is out of proportion to findings so far on CT chest and echo and other causes must be investigated. Differential includes liver dysfunction, shunt, and V/Q mismatch. Normal LFTs today make liver dysfunction less likely. - echo bubble study today before LHC ?HIV ?- continue biktarvy 1 tab PO daily ?? Chronic arthritis ?- APAP 1000mg PO Q8 ?FEN ?- cardiac diet until midnight then NPO for LHC tomorrow ?BPH ?- tamsulosin 0.4mg PO daily ?? Insomnia - melatonin 3mg PO daily Nasal congestion - NaCl 0.65% nasal spray PRN VTE Prophylaxis Pharmacologic Prophylaxis: Enoxaparin (Lovenox) 40 mg SQ daily Discharge Plan Uncertain at this time Federico Aguillon 05/20/2019 9:45 * Lluvia Lua RN - 05/19/2019 1715 EDT RN and patient discussed purpose of LHC and difference between stents and bypass grafts. Pt watchedrecovering at home following heart surgery DVD. RN spoke with postal transportation clerk regarding coordination of LHC under general anesthesia for tomorrow. * Jorge L Aparicio MD, - 05/19/2019 1153 EDT Cardiology Progress note Service Date: 05/19/2019 Admit Date: 05/14/2019 12:14 Reason for Admission: 68 y.o. male admitted with a chief complaint of subacute progressive FOSTER and now with a principal diagnosis of aortic regurgitation. Events/ Procedures in the last 24 Hours: - Unable to tolerate lying flat for CT cardiac angiogram Subjective/Objective Subjective Feeling improved this morning. Still complains of SOB with laying flight though he continues to practice this and reports some improvements. Denies SOB with ambulation. Denies difficulties with sleeping. Denies lower extremity swelling. Tolerating regular diet and voiding without difficulty. No nausea or vomiting. Ambulating within the room and down the polk without lightheadedness or dizziness. Daughter very frustrated with lack of communication and coordination regarding timing of LHC, wanting to be at the bedside and frustrations with daily AM status of NPO. Review of Systems A complete 10 point review of systems was obtained with pertinent findings noted in HPI otherwise negative Objective Vital Signs Patient Vitals for the past 8 hrs: BP Pulse Heart Rate Resp Temp SpO2 O2 Device 05/19/19 0759 138/71 70 75 BPM 18 36.4 ??C (97.5 ??F) 97 % None Weight: No data found. Intake/Output Summary (Last 24 hours) at 05/19/2019 1153 Last data filed at 05/19/2019 1100 Gross per 24 hour Intake -- Output 1850 ml Net -1850 ml Physical Exam General appearance: elderly gentleman, alert, cooperative, no distress Skin: Color, temperature normal. No rashes or lesions HEENT: MMM, no scleral icterus Lungs: Decreased breath sounds in bilateral bases, no crackles, no wheezes Heart: RRR, S1, S2 normal, soft diastolic murmur Abdomen: soft, non-tender : No Garcia present Neurologic: moving all extremities spontaneously, no facial droop or dysarthria Extremities: Bilateral lower extremity trace edema Is PICC or central line present? No, PICC/Central line not present. Medications Available for review in Epic. Labs CBC: Recent Labs 05/17/19 0633 05/18/19 0543 05/19/19 0618 WBC 6.61 7.19 5.57 HGB 15.3 15.1 14.4 HCT 45.6 43.8 42.9 MCV 93 91 93 PLT 282 277 270 BMP: Recent Labs 05/17/19 0633 05/18/19 0543 05/19/19 0618 CREATININE 1.12 1.02 0.95 NA 136 138 138 K 4.5 4.2 4.3 CL 99 102 102 CO2 30 32 29 MG 2.1 2.2 2.3 Imaging: [facility]GLAS 05/15 1. Left ventricle: The cavity size was normal. Wall thickness was normal. Systolic function was normal. The estimated ejection fraction was 55-60%. Wall motion was normal; there were no regional wall motion abnormalities. 2. Right ventricle: The cavity size was normal. Wall thickness was normal. Systolic function was normal. 3. Aortic valve: Trileaflet; mildly thickened leaflets. There was an eccentric jet of severe regurgitation directed towards the mitral anterior leaflet. Severity was suggested by diastolic flow reversal in the ascending aorta. Assessment/Plan Assessment/Plan Jose Cheung is a 68M PMH recently diagnosed HIV (CD4 529), bilateral uveitis who presents with subacute progressive dyspnea and orthopnea associated with inflammatory lower back pain, now found tohave aortic regurgitation and mitral valve disease of unknown etiology, awaiting coronary CT and formal CT surgery consult. Requires CTA to exclude ischemic heart disease prior to supper. Unable to tolerate due to orthopnea; does not appear hypervolemic on examination with underlying question of pulmonary pathology. CT demonstrated paucity of pulmonary edema; however, evidence of calcium on CT. Likely requires C on 05/19/2019. Aortic insufficiency: Aortic valve trileaflet; mildly thickened leaflets with severe regurgitation;EF 55%. Per ID, could be due to acute HIV infection, especially in a male >50 years of age. Ankylosing spondylitis less likely given normal CRP, no sacroiliac inflammation on imaging, no aortic dilatation. No evidence of endocarditis on imaging, blood cultures with NGTD. - Plans for valve replacement on 05/22 - Nursing performed O2 monitoring in supine position, with rapid desat to 84%, additional IV 20mg furosemide bolus administerred - Continue PO furosemide 20mg daily for maintenance if trace LE edema; unlikely to resolve orthopnea given paucity of pulmonary edema on CT, add incentive spirometry - Daily weights, I/Os, Cr - Coronary CT if able to tolerate given orthopnea; if unable to tolerate coronary CT will need to undergo LHC under [place]: Need to coordinate LHC under [place] prior to 05/22 valve replacement - F/u CT surgery recs - F/u HIV labs as outlined below ?? HIV: Presumably contracted from female sexual partner in [place]. On Biktarvy, CD4 529. Possibly related to aortic dystrophy (see ID note). 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 Describes inflammatory symptoms in SI joint and has SI tenderness. Gets better with warm baths, icing. CRP wnl, no evidence of SI disease onx-ray. - f/u HLA B27 - Acetaminophen 650mg q4h PRN ?? 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 VTE Prophylaxis: Pharmacologic Prophylaxis: Enoxaparin (Lovenox) 40 mg SQ daily Discharge Plan: Uncertain at this time Rhea Lucas DO, MPH Family Medicine PGY1, Page #[phone] 05/19/19, 10:08 * Rhea Lucas DO - 05/18/2019 0934 EDT Cardiology Progress note Service Date: 05/18/2019 Admit Date: 05/14/2019 12:14 Reason for Admission: 68 y.o. male admitted with a chief complaint of subacute progressive FOSTER and now with a principal diagnosis of aortic regurgitation. Events/ Procedures in the last 24 Hours: - Unable to tolerate lying flat for CT cardiac angiogram Subjective/Objective Subjective Feeling improved this morning. Still complains of SOB with laying flight though he continues to practice this and reports improvements. Denies SOB with ambulation. Denies difficulties with sleeping. Denies weight gain or lower extremity swelling. Tolerating regular diet. No nausea or vomiting. Ambulating within the room and down the polk without lightheadedness or dizziness. Review of Systems A complete 10 point review of systems was obtained with pertinent findings noted in HPI Objective Vital Signs Patient Vitals for the past 8 hrs: BP Heart Rate Resp Temp SpO2 O2 Device 05/18/19 0800 127/66 79 BPM 16 36.7 ??C (98.1 ??F) 93 % None Weight: No data found. Intake/Output Summary (Last 24 hours) at 05/18/2019 0934 Last data filed at 05/18/2019 0800 Gross per 24 hour Intake 1750 ml Output 550 ml Net 1200 ml Physical Exam General appearance: elderly gentleman, alert, cooperative, no distress Skin: Color, temperature normal. No rashes or lesions HEENT: MMM, no scleral icterus Lungs: Decreased breath sounds in bilateral bases, no crackles, no wheezes Heart: RRR, S1, S2 normal, soft diastolic murmur Abdomen: soft, non-tender : No Garcia present Neurologic: moving all extremities spontaneously, no facial droop or dysarthria Extremities: Bilateral lower extremity trace edema Is PICC or central line present? No, PICC/Central line not present. Medications Available for review in [facility]. Labs CBC: Recent Labs 05/16/1918 05/17/19 0633 05/18/19 0543 WBC 6.79 6.61 7.19 HGB 15.4 15.3 15.1 HCT 44.4 45.6 43.8 MCV 89 93 91 PLT 281 282 277 BMP: Recent Labs 05/16/19 0618 05/17/19 0633 05/18/19 0543 CREATININE 1.11 1.12 1.02 NA 139 136 138 K 4.3 4.5 4.2 CL 100 99 102 CO2 32 30 32 MG 2.2 2.1 2.2 Imaging: DUGLAS 05/15 1. Left ventricle: The cavity size was normal. Wall thickness was normal. Systolic function was normal. The estimated ejection fraction was 55-60%. Wall motion was normal; there were no regional wall motion abnormalities. 2. Right ventricle: The cavity size was normal. Wall thickness was normal. Systolic function was normal. 3. Aortic valve: Trileaflet; mildly thickened leaflets. There was an eccentric jet of severe regurgitation directed towards the mitral anterior leaflet. Severity was suggested by diastolic flow reversal in the ascending aorta. Assessment/Plan Assessment/Plan Jose Cheung is a 68M PMH recently diagnosed HIV (CD4 529), bilateral uveitis who presents with subacute progressive dyspnea and orthopnea associated with inflammatory lower back pain, now found tohave aortic regurgitation and mitral valve disease of unknown etiology, awaiting coronary CT and formal CT surgery consult. Requires CTA to exclude ischemic heart disease prior to supper. Unable to tolerate due to orthopnea; does not appear hypervolemic on examination with underlying question of pulmonary pathology. CT demonstrated paucity of pulmonary edema; however, evidence of calcium on CT. Likely requires LHC on 05/19/2019. Aortic insufficiency and ?mitral valve disease c/b dyspnea on exertion: Aortic regurgitation, no aortic dilatation, and abnormal mitral valve with subvalvular thickening and regurgitation. Per ID, could be due to acute HIV infection, especially in a male >50 years of age. Ankylosing spondylitis less likely given normal CRP, no sacroiliac inflammation on imaging, no aortic dilatation. No evidence of endocarditis on imaging, blood cultures with NGTD. Presumed to be the cause of his heart failure symptoms - orthopnea and LE edema, so would benefit from diuresis. - Continue PO furosemide 20mg daily for maintenance if trace LE edema; unlikely to resolve orthopnea given paucity of pulmonary edema on CT, add incentive spirometry - Daily weights, I/Os, Cr - Coronary CT if able to tolerate given orthopnea; if unable to tolerate coronary CT will need to undergo [facility] - F/u CT surgery recs - F/u HIV labs as outlined below ?? HIV: Presumably contracted from female sexual partner in [facility]. On Biktarvy, CD4 529. Possibly related to aortic dystrophy (see ID note). 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 Describes inflammatory symptoms in SI joint and has SI tenderness. Gets better with warm baths, icing. CRP wnl, no evidence of SI disease onx-ray. - f/u HLA B27 - Acetaminophen 650mg q4h PRN ?? Chronic thrombocytopenia - Daily CBC, continue to monitor ?? 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 VTE Prophylaxis: Pharmacologic Prophylaxis: Enoxaparin (Lovenox) 40 mg SQ daily Discharge Plan: Uncertain at this time Rhea Lucas DO, MPH Family Medicine PGY1, Page #[phone] 05/18/19, 10:08 Associated attestation - Jorge L Espino Sa, MD - 05/20/2019 0944 EDT Attending Attestation: I saw and evaluated the patient. I discussed the case with the resident/DIRECT MARKETING INTERN/fellow and agree with the findings and plan as documented above. Pt seen on 05/18 Jorge L harrell Sa, MD Cardiac Electrophysiology * Federico Aguillon - 05/18/2019 0728 EDT Cardiology Progress note Service Date: 05/18/2019 Admit Date: 05/14/2019 12:14 Reason for Admission: 68 y.o. male admitted with a chief complaint of shortness of breath and now with a principal diagnosis of aortic regurgitation. Events/ Procedures in the last 24 Hours: CT chest (findings described below) Subjective/Objective Subjective Bill is feeling well today and has been sleeping better at night. He states that he was able to layflat for his CT chest yesterday for about 3 minutes with some significant effort. He has been passing significant flatus for the last 12-14 hours which has relieved the feeling of abdominal fullness which he felt was contributing to his breathing. He has been ambulating around the hallways with no significant difficulty. He still has dyspnea when laying flat but is better able to tolerate it as well as tolerating reclining. Review of Systems Pertinent items are noted in Subjective/HPI Objective Vital Signs Patient Vitals for the past 8 hrs: BP Heart Rate Resp Temp SpO2 O2 Device 05/18/19 0800 127/66 79 BPM 16 36.7 ??C (98.1 ??F) 93 % None Intake/Output Summary (Last 24 hours) at 05/18/2019 0916 Last data filed at 05/18/2019 0800 Gross per 24 hour Intake 1750 ml Output 550 ml Net 1200 ml Physical Exam General: well appearing, overweight, no acute distress HEENT: NC/AT, normal sclera and conjunctivae, MMM CV: normal S1/S2, S3 present, 2/6 high pitched diastolic decrescendo murmur best heard at the uppersternal borders, 3+ radial and DP pulses bilaterally Pulm: normal WOB, sparse rales at bases bilaterally, otherwise clear and equal GI/: abdomen soft, non-tender, normoactive BS Neuro/MSK: CAOx4, LOCKHART, normal bulk and tone Skin: NWD without lesions on exposed skin Ext: pitting edema bilaterally to mid-calf, no cyanosis Is PICC or central line present? No, PICC/Central line not present. Medications Reviewed: No changes Labs Reviewed: Results notable for CD4 count 616, viral load 386. CBC: Recent Labs 05/16/1918 05/17/19 0633 05/18/19 0543 WBC 6.79 6.61 7.19 HGB 15.4 15.3 15.1 HCT 44.4 45.6 43.8 MCV 89 93 91 PLT 281 282 277 BMP: Recent Labs 05/16/1918 05/17/19 0633 05/18/19 0543 CREATININE 1.11 1.12 1.02 NA 139 136 138 K 4.3 4.5 4.2 CL 100 99 102 CO2 32 30 32 MG 2.2 2.1 2.2 Non-Invasive Findings last 24 hours: CT Chest: 1. ??Bandlike opacities in the lower lobes likely represent atelectasis versus scarring. No pulmonary edema or interstitial lung disease is identified. 2. ??Scattered tiny pulmonary nodules likely inflammatory. I have personally reviewed the images and the above interpretation and agree with the findings. Telemetry: yes, Normal sinus rhythm Assessment/Plan Assessment/Plan Jose is a 68 y/o male with a history significant for recent HIV diagnosis in March 2019 (initial:CD4 count 529, viral load 94,797; current: CD4 count 616, viral load 386) on biktarvy, BPH, uveitis, and chronic thrombocytopenia admitted to the cardiology service for severe aortic regurgitation who is clinically stable. Patient Active Hospital Problem List: Aortic valve regurgitation The etiology of his aortic regurgitation remains unclear but the severity is now more clearly identified on DUGLAS. ID advises that there may be a rare association between HIV and aortic regurgitation due to valvular dystrophy. Given the lack of identifiable vegetation on DUGLAS it is less likely to be attributable to IE however blood cultures are still pending and an atypical IE cannot yet be ruled out. Suspicion for ankylosing spondylitis is decreased following normal SI joints on x-ray. Negative RPR on 04/21/19 and negative treponema antibody during this admission rule out tertiary syphilitic aortitis. Surgery has requested coronary CT angiogram prior to TAVR consideration which patient was unable to complete due to orthopnea. He will now undergo LHC on 05/19 or 05/20 (currently attempting to clarify). - awaiting results of blood cultures and HLA B27 - continue furosemide 20mg PO daily - OOB as tolerated - strict I/O Atelectasis Atelectasis identified on chest CT is likely due to inactivity which may be a contributing factor to his SOB in the absence of identifiable pulmonary edema. Incentive spirometer may be beneficial in improving lung function. - incentive spirometer while awake - encourage activity as tolerated ?? HIV - continue biktarvy 1 tab PO daily ?? Chronic arthritis - APAP 1000mg PO Q8 ?? FEN - cardiac diet until midnight then NPO for LHC tomorrow ?? BPH - tamsulosin 0.4mg PO daily Insomnia - melatonin 3mg PO daily VTE Prophylaxis Pharmacologic Prophylaxis: Enoxaparin (Lovenox) 40 mg SQ daily Discharge Plan Uncertain at this time Federico Aguillon 05/18/2019 9:16 * Jeff Sanchez - 05/17/2019 1526 EDT Spiritual Care Note Re: Jose Cheung : 1950, AGE: 68 y.o. Room: [id number]/ Jose Cheung who is listed as None has received a visit from the Spiritual Care Department on 05/17/2019. Need/Assessment: ?? Patient was unavailable at the time. Photograph Inspector will visit at a later time. Chaplain Hansa Barr 131 Phone [phone] Spiritual Care is available 24 hours a day. Chaplains are available 24 hours a day. For routine consults please call and leave a message with the Spiritual Care Office ([phone]) and patients will be seen within 24 hours. For all emergent consults page the [facility] on-call Photograph Inspector through [facility] ([phone]). * Addison Murry MD - 05/17/2019 0643 EDT Cardiology Progress note Service Date: 05/17/2019 Admit Date: 05/14/2019 12:14 Reason for Admission: 68 y.o. male admitted with a chief complaint of subacute progressive FOSTER and now with a principal diagnosis of aortic regurgitation. Events/ Procedures in the last 24 Hours: - Unable to tolerate lying flat for CT cardiac angiogram Subjective/Objective Subjective Feeling improved this morning. Continues to practice laying flat. Developed shortness of breath. Denies difficulties with sleeping. Denies weight gain or lower extremity swelling. Tolerating regular diet. No nausea or vomiting. Ambulating within the room without lightheadedness or dizziness. Review of Systems A complete 10 point review of systems was obtained with pertinent findings noted in HPI Objective Vital Signs Patient Vitals for the past 8 hrs: BP Heart Rate Resp Temp SpO2 O2 Device 05/17/19 0020 120/66 80 BPM 16 36.2 ??C (97.2 ??F) 95 % None Weight: No data found. Intake/Output Summary (Last 24 hours) at 05/17/2019 0643 Last data filed at 05/17/2019 0019 Gross per 24 hour Intake 480 ml Output 2101 ml Net -1621 ml Physical Exam General appearance: alert, cooperative, no distress Skin: Color, temperature normal. No rashes or lesions HEENT: MMM, no scleral icterus, EOM intact Lungs: Decreased breath sounds in bilateral bases, no crackles, no wheezes Heart: RRR, S1, S2 normal, +S3, no m/r/g, no JVD Abdomen: soft, non-tender; bowel sounds normal : No Garcia present Neurologic: moving all extremities spontaneously, no facial droop or dysarthria Mental Status: awake, A/O x4 Extremities: Bilateral lower extremity trace edema Is PICC or central line present? No, PICC/Central line not present. Medications Available for review in [facility]. Labs CBC: Recent Labs 05/14/19 1527 05/15/19 0532 05/16/19 0618 WBC 6.43 7.34 6.79 HGB 14.5 14.5 15.4 HCT 42.7 41.5 44.4 MCV 91 90 89 PLT 277 257 281 BMP: Recent Labs 05/14/19 1527 05/15/19 0532 05/16/19 0618 CREATININE 0.91 1.06 1.11 NA 140 138 139 K 4.2 4.4 4.3 CL 102 102 100 CO2 32 30 32 MG -- 2.0 2.2 Imaging: DUGLAS 05/15 1. Left ventricle: The cavity size was normal. Wall thickness was normal. Systolic function was normal. The estimated ejection fraction was 55-60%. Wall motion was normal; there were no regional wall motion abnormalities. 2. Right ventricle: The cavity size was normal. Wall thickness was normal. Systolic function was normal. 3. Aortic valve: Trileaflet; mildly thickened leaflets. There was an eccentric jet of severe regurgitation directed towards the mitral anterior leaflet. Severity was suggested by diastolic flow reversal in the ascending aorta. Assessment/Plan Assessment/Plan Jose Cheung is a 68M PMH recently diagnosed HIV (CD4 529), bilateral uveitis who presents with subacute progressive dyspnea and orthopnea associated with inflammatory lower back pain, now found tohave aortic regurgitation and mitral valve disease of unknown etiology, awaiting coronary CT and formal CT surgery consult. Requires CTA to exclude ischemic heart disease prior to supper. Unable to tolerate due to orthopnea; does not appear hypervolemic on examination with underlying question of pulmonary pathology. CT demonstrated paucity of pulmonary edema; however, evidence of calcium on CT. Likely requires C on 05/19/2019. Aortic insufficiency and ?mitral valve disease c/b dyspnea on exertion: Aortic regurgitation, no aortic dilatation, and abnormal mitral valve with subvalvular thickening and regurgitation. Per ID, could be due to acute HIV infection, especially in a male >50 years of age. Ankylosing spondylitis less likely given normal CRP, no sacroiliac inflammation on imaging, no aortic dilatation. No evidence of endocarditis on imaging, blood cultures with NGTD. Presumed to be the cause of his heart failure symptoms - orthopnea and LE edema, so would benefit from diuresis. - Transition to PO furosemide 20mg daily; unlikely to resolve orthopnea given paucity of pulmonary edema on CT - Daily weights, I/Os, Cr - Coronary CT if able to tolerate given orthopnea; if unable to tolerate coronary CT will need to undergo C - F/u CT surgery recs - F/u HIV labs as outlined below ?? HIV: Presumably contracted from female sexual partner in [place]. On Biktarvy, CD4 529. Possibly related to aortic dystrophy (see ID note). 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 Describes inflammatory symptoms in SI joint and has SI tenderness. Gets better with warm baths, icing. CRP wnl, no evidence of SI disease onx-ray. - f/u HLA B27 - Acetaminophen 650mg q4h PRN ?? Chronic thrombocytopenia - Daily CBC, continue to monitor ?? 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 VTE Prophylaxis: Pharmacologic Prophylaxis: Enoxaparin (Lovenox) 40 mg SQ daily Discharge Plan: Uncertain at this time Addison Murry MD Associated attestation - Simona Hamilton MD - 05/19/2019 0834 EDT Attending Attestation: I have personally seen and examined Jose Cheung, discussed the patient's management with the team, and agree with the findings and plan as outlined by Dr. Murry. Patient'sorthopnea is out of proportion to his degree of heart failure. Will obtain CT chest (prone if needed) to evaluate further. Needs [facility] pre-op.. Simona Hamilton MD * Federico Aguillon - 05/16/2019 0847 EDT Cardiology Progress note Service Date: 05/16/2019 Admit Date: 05/14/2019 12:14 Reason for Admission: 68 y.o. male admitted with a chief complaint of shortness of breath and now with a principal diagnosis of aortic regurgitation. Events/ Procedures in the last 24 Hours: DUGLAS yesterday Subjective/Objective Subjective Jose is feeling well but tired today. He states that his shortness of breath has improved and heis now able to recline in his bed or chair to about a 60 degree angle which he could not do upon admission. He states that he has been unable to get decent sleep due to pain in his back and legs which he does not feel is being adequately controlled at this time. He has been urinating frequently andfeels like the swelling in his legs has decreased significantly. All three of his daughters are present at the bedside this morning. Review of Systems Pertinent items are noted in Subjective/HPI Objective Vital Signs Patient Vitals for the past 8 hrs: BP Heart Rate Resp Temp SpO2 O2 Device 05/16/19 0816 (!) 142/63 84 BPM 18 37 ??C (98.6 ??F) 95 % None 05/16/19 0800 -- 85 BPM -- -- -- -- 05/16/19 0700 -- 87 BPM -- -- -- -- 05/16/19 0124 123/84 88 BPM 18 36.5 ??C (97.7 ??F) 97 % None Intake/Output Summary (Last 24 hours) at 05/16/2019 0848 Last data filed at 05/16/2019 0800 Gross per 24 hour Intake 940 ml Output 600 ml Net 340 ml Physical Exam General: alert, overweight, no acute distress HEENT: NC/AT, normal sclera and conjunctivae, MMM, white plaques on tongue CV: normal S1/S2, S3 present, no audible murmur Pulm: normal WOB, CTAB GI/: deferred Neuro/MSK: CAOx4, LOCKHART, grossly normal Skin: NWD with no lesions on exposed skin Ext: pitting edema up to mid-calf bilaterally, no cyanosis Is PICC or central line present? No, PICC/Central line not present. Medications Reviewed: Changes notable for change to APAP 1000mg PO Q8, transition to furosemide 20mg PO daily, add metoprolol 25mg PO for rate control prior to coronary CT angiogram Labs Reviewed: Results notable for creatinine increase from 0.91 at admission to 1.11 today. Awaiting HLA B27 screen, HIV viral load, blood cultures, CD4 count. CBC: Recent Labs 05/14/19 1527 05/15/19 0532 05/16/19 0618 WBC 6.43 7.34 6.79 HGB 14.5 14.5 15.4 HCT 42.7 41.5 44.4 MCV 91 90 89 PLT 277 257 281 BMP: Recent Labs 05/14/19 1527 05/15/19 0532 05/16/19 0618 CREATININE 0.91 1.06 1.11 NA 140 138 139 K 4.2 4.4 4.3 CL 102 102 100 CO2 32 30 32 MG -- 2.0 2.2 Non-Invasive Findings last 24 hours: DUGLAS: Summary: 1. Left ventricle: The cavity size was normal. Wall thickness was ? normal. Systolic function was normal. The estimated ejection fraction ? was 55-60%. Wall motion was normal; there were no regional wall ? motion abnormalities. 2. Right ventricle: The cavity size was normal. Wall thickness was ? normal. Systolic function was normal. 3. Aortic valve: Trileaflet; mildly thickened leaflets. There was an ? eccentric jet of severe regurgitation directed towards the mitral ? anterior leaflet. Severity was suggested by diastolic flow reversal ? in the ascending aorta. SI Joint x-ray: No evidence of fractures or dislocation. Both SI joints are unremarkable. There is no evidence of bone erosion, sclerosis or joint space narrowing or fusion to suggest sacroiliitis. Bones and soft tissues are otherwise unremarkable. Telemetry: yes, Normal sinus rhythm ECG: N/A Does the patient have active heart failure? yes, acute, diastolic Assessment/Plan Assessment/Plan Jose is a 68 y/o male with a history significant for recent HIV diagnosis in March 2019 (CD4 count 529, viral load 94,797) on biktarvy, BPH, uveitis, chronic thrombocytopenia, and??active??oral candidiasis admitted to the cardiology service for severe aortic regurgitation who is clinically stable. Patient Active Hospital Problem List: Aortic valve regurgitation The etiology of his aortic regurgitation remains unclear but the severity is now more clearly identified on DUGLAS. ID advises that there may be a rare association between HIV and aortic regurgitation. Given the lack of identifiable vegetation on DUGLAS it is less likely to be attributable to IE however blood cultures are still pending and an atypical IE cannot yet be ruled out. Suspicion for ankylosing spondylitis is decreased following normal SI joints on x-ray. ID also recommends syphilis antibodytest despite negative RPR for complete rule-out of tertiary syphilitic aortitis. Surgery has requested coronary CT angiogram prior to TAVR consideration. - scheduled for coronary CT angiogram today - awaiting results of blood cultures and HLA B27 - order treponema antibody - transition to furosemide 20mg PO daily - OOB as tolerated - strict I/O HIV with oral candidiasis - check viral load and CD4 count per surgery team - discontinue fluconazole per ID recommendation - continue biktarvy 1 tab PO daily Pain - APAP 1000mg PO Q8 FEN - NPO until CT angio then cardiac diet BPH - tamsulosin 0.4mg PO daily VTE Prophylaxis Pharmacologic Prophylaxis: Enoxaparin (Lovenox) 40 mg SQ daily Discharge Plan Uncertain at this time Federico Aguillon 05/16/2019 8:48 * Rosio Treviño MD - 05/16/2019 0659 EDT Cardiology Progress note Service Date: 05/16/2019 Admit Date: 05/14/2019 12:14 Reason for Admission: 68 y.o. male admitted with a chief complaint of subacute progressive FOSTER and now with a principal diagnosis of aortic regurgitation. Events/ Procedures in the last 24 Hours: - DUGLAS - Seen by ID (see recs) Subjective/Objective Subjective Swelling has improved in legs, breathing has improved but still unable to lay flat for longer than a few seconds. Quite bothered by pain in lower back, hips, thighs, knees. He describes burning pain in his thighs but it seems that the pain is the worst in the joints themselves. No chest pain, no palpitations. Has been urinating quite a bit with diuresis. Review of Systems A complete 10 point review of systems was obtained with pertinent findings noted in HPI Objective Vital Signs Patient Vitals for the past 8 hrs: BP Heart Rate Resp Temp SpO2 O2 Device 05/16/19 0124 123/84 88 BPM 18 36.5 ??C (97.7 ??F) 97 % None Weight: No data found. Intake/Output Summary (Last 24 hours) at 05/16/2019658 Last data filed at 05/15/20192034 Gross per 24 hour Intake 580 ml Output 600 ml Net -20 ml Physical Exam General appearance: alert, cooperative, no distress, daughters at bedside x3 Skin: Color, temperature normal. No rashes or lesions HEENT: MMM, no scleral icterus, EOM intact Lungs: Decreased breath sounds in bilateral bases, no crackles, no wheezes Heart: RRR, S1, S2 normal, +S3, no m/r/g, no JVD Abdomen: soft, non-tender; bowel sounds normal : No Garcia present Neurologic: moving all extremities spontaneously, no facial droop or dysarthria Mental Status: awake, A/O x4 Extremities: Bilateral lower extremity trace edema, less pronounced than yesterday Is PICC or central line present? No, PICC/Central line not present. Medications Available for review in Epic, notable for furosemide 20mg IV x1 yesterday Labs CBC: Recent Labs 05/14/19 1527 05/15/19 0532 05/16/19 0618 WBC 6.43 7.34 6.79 HGB 14.5 14.5 15.4 HCT 42.7 41.5 44.4 MCV 91 90 89 PLT 277 257 281 BMP: Recent Labs 05/14/19 1527 05/15/19 0532 CREATININE 0.91 1.06 NA 140 138 K 4.2 4.4 CL 102 102 CO2 32 30 MG -- 2.0 Coags: No results for input(s): PROTIME, INR, PTT in the last 72 hours. LFTs: No results for input(s): ALT, AST, GGT, ALKPHOS, TBIL in the last 72 hours. Cardiac Biomarkers: No results for input(s): TROPONINI in the last 72 hours. Lipids: No results for input(s): CHOL, TRIG, HDL, LDLBASE, CHOLHDL in the last 72 hours. Imaging: DUGLAS 05/15 1. Left ventricle: The cavity size was normal. Wall thickness was normal. Systolic function was normal. The estimated ejection fraction was 55-60%. Wall motion was normal; there were no regional wall motion abnormalities. 2. Right ventricle: The cavity size was normal. Wall thickness was normal. Systolic function was normal. 3. Aortic valve: Trileaflet; mildly thickened leaflets. There was an eccentric jet of severe regurgitation directed towards the mitral anterior leaflet. Severity was suggested by diastolic flow reversal in the ascending aorta. Tele: 4 run beat of NSVT, asymptomatic, occasional sinus pauses <2 seconds Assessment/Plan Assessment/Plan Jose Cheung is a 68M PMH recently diagnosed HIV (CD4 529), bilateral uveitis who presents with subacute progressive dyspnea and orthopnea associated with inflammatory lower back pain, now found tohave aortic regurgitation and mitral valve disease of unknown etiology, awaiting coronary CT and formal CT surgery consult today. #Aortic insufficiency and ?mitral valve disease c/b dyspnea on exertion Aortic regurgitation, no aortic dilatation, and abnormal mitral valve with subvalvular thickening and regurgitation. Per ID, could be due to acute HIV infection, especially in a male >50 years of age. Ankylosing spondylitis less likely given normal CRP, no sacroiliac inflammation on imaging, no aortic dilatation. No evidence of endocarditis on imaging, blood cultures with NGTD. Presumed to be the cause of his heart failure symptoms - orthopnea and LE edema, so would benefit from diuresis. Not a TAVR candidate, evaluate for CT surgery with coronary CT, CT surg consult today. - Transition to PO furosemide 20mg daily - Daily weights, I/Os, Cr - Coronary CT today - no need for LHC given low pretest probability - F/u CT surgery recs - F/u HIV labs as outlined below ?? #HIV [facility] On Biktarvy, CD4 529. Possibly relatedto aortic dystrophy (see ID note). 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 Describes inflammatory symptoms in SI joint and has SI tenderness. Gets better with warm baths, icing. CRP wnl, no evidence of SI disease on x-ray. - f/u HLA B27 - Acetaminophen 650mg q4h PRN ?? #Chronic thrombocytopenia - Daily CBC, continue to monitor ?? 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 VTE Prophylaxis: Pharmacologic Prophylaxis: Enoxaparin (Lovenox) 40 mg SQ daily Discharge Plan: Uncertain at this time Rosio Treviño MD Internal Medicine Resident 05/16/19 Associated attestation - Simona Hamilton MD - 05/16/2019 8796 EDT Attending Attestation: I have personally seen and examined Jose Cheung, discussed the patient's management with the team, and agree with the findings and plan as outlined by Dr. Kamila. Patient was unable to lie flat for CCTA today so he will need a LHC pre-operatively. CT surgery consultation appreciated. Tentative surgery date of 05/22/19. Simona Hamilton MD * Maria Elena Alejandre RN - 05/15/2019 1325 EDT Initial Case Management/Social Work Assessment and Discharge Plan/Readmission Risk Assessment REASON FOR ADMISSION: Aortic Regurg Patient understands reason for admission: Yes PATIENT CONTACT INFO VERIFIED: Yes PATIENT ADDRESS VERIFIED: Yes([facility]) LIVING ARRANGEMENTS AND ACCESSIBILITY ISSUES: Living Arrangements: Alone Levels: 1 Stairs to enter: 4 or more Handicap access: Railings into home Bathroom located on bedroom level?: Yes What in home social supports are available to the patient? Family member(s), Children Is 24/7 care available? Yes ADVANCED DIRECTIVES, POA &/or COLST IN PLACE: Healthcare Directive: No, patient does not have advance directive for healthcare treatment Information Provided on Healthcare Directives: No DIRECTIVES FOR FINANCES: TRANSPORTATION: Transportation: Family CULTURAL, ANABAPTIST and/or LANGUAGE factors affecting health care/discharge planning: Spiritual/Cultural Requests: None Any factors affecting health care/discharge planning?: No Insurance in Place: Yes Medical Insurance: Yes Type of insurance: Medicare, Supplemental plan to Medicare Medicare type: A, B Supplemental: VMAP Referred to patient financial services: No DISCHARGE RISK ASSESSMENT: None of the above risks identified Total # selected above: Score: Zero Tentative plan to address the risk of re-hospitalization for those at HIGH MODERATE RISK: RAPT TOOL: Age: 66-75 Gender: Male Ambulation distance: 1-2 blocks Gait device: None Community Services: Home health, MOW, SASH-none of one time a week Will you live with someone who will care for you?: No RAPT Tool Score: 7 Patient expects to be discharged to: home SBIRT: SASQ (Single Alcohol Screening Question) How many times in the past year have you had 5 or more drinks in a single day?: Never How many times in the past year have you used an illegal drug or used a prescription medication fornon-medical reasons?: Never Intervention in place/initiated?: No, not indicated FUNCTIONAL STATUS: Activities patient requires assistance: None Assistive Device: None COMMUNITY RESOURCES/SUPPORTS: Primary Care Provider: Lorrie Conte PCP Verified: Yes Specialists: Cardiology(Dr. Stauffer) Type of Home Health Services: None DME Provider: Pharmacy: [facility] in [facility] TRANSITION PLAN: Plan d/c home when medically stable. Patient's two daughters live locally and work at [employer]. He has another daughter in [place]. They are all very supportive and involved. Patient lives in a single story duplex next door to his brother. No CM are currently identified. I provided parking passes to the family. Please contact CM if barriers to d/c arise. Maria Elena Alejandre RN 05/15/2019 13:25 * Rosio Treviño MD - 05/15/2019 0840 EDT Cardiology Progress note Service Date: 05/15/2019 Admit Date: 05/14/2019 12:14 Reason for Admission: 68 y.o. male admitted with a chief complaint of subacute progressive FOSTER and now with a principal diagnosis of aortic regurgitation. Events/ Procedures in the last 24 Hours: - Admitted (see H&P) - NPO for DUGLAS today Subjective/Objective Subjective Patient is feeling well. He is still short of breath when he lays flat or when he walks more than afew steps, but he slept well. He wants to get his DUGLAS done as soon as possible. He has persistent pain in his legs and hips. He was urinating directly into the toilet but he said that he urinated quite a bit after getting diuretics last night. He says that when he gets dehydrated he gets muscle cramps, but they have not bothered him too much overnight. He jokingly asked if the wet floor sign outside his room was a code that meant that the patient in that room had HIV, but did not take this too seriously. He also shared that he has not had any male sexual partners and has no history of inject ion drug use, and that in [place] he had one female partner who he had unprotected sex with twice. Review of Systems A complete 10 point review of systems was obtained with pertinent findings noted in HPI Objective Vital Signs Patient Vitals for the past 8 hrs: BP Heart Rate Resp Temp SpO2 O2 Device 05/15/19 0049 125/66 84 BPM 16 37 ??C (98.6 ??F) 97 % None Weight: No data found. No intake or output data in the 24 hours ending 05/15/19 0840 Physical Exam General appearance: alert, cooperative, no distress Skin: Color, temperature normal. No rashes or lesions HEENT: MMM, no scleral icterus, EOM intact Lungs: Decreased breath sounds in bilateral bases, bilateral end-inspiratory crackles, no wheezes Heart: RRR, S1, S2 normal, +S3, no m/r/g, no JVD Abdomen: soft, non-tender; bowel sounds normal : No Garcia present Neurologic: moving all extremities spontaneously, no facial droop or dysarthria Mental Status: awake, A/O x4 Extremities: Bilateral lower extremity pitting edema to mid-alves, less pronounced than yesterday MSK: Bilateral sacroiliac joint tenderness to palpation Is PICC or central line present? No, PICC/Central line not present. Medications Available for review in [facility], notable for furosemide 20mg IV x1 yesterday evening Labs CBC: Recent Labs 05/14/19 1527 05/15/19 0532 WBC 6.43 7.34 HGB 14.5 14.5 HCT 42.7 41.5 MCV 91 90 PLT 277 257 BMP: Recent Labs 05/14/19 1527 05/15/19 0532 CREATININE 0.91 1.06 NA 140 138 K 4.2 4.4 CL 102 102 CO2 32 30 MG -- 2.0 Coags: No results for input(s): PROTIME, INR, PTT in the last 72 hours. LFTs: No results for input(s): ALT, AST, GGT, ALKPHOS, TBIL in the last 72 hours. Cardiac Biomarkers: No results for input(s): TROPONINI in the last 72 hours. Lipids: No results for input(s): CHOL, TRIG, HDL, LDLBASE, CHOLHDL in the last 72 hours. Imaging: No new imaging since admission Assessment/Plan Assessment/Plan Jose Cheung is a 68M PMH recently diagnosed HIV (CD4 529), bilateral uveitis who presents with subacute progressive dyspnea and orthopnea associated with inflammatory lower back pain, now found tohave aortic regurgitation and mitral valve disease of unknown etiology, awaiting DUGLAS today. 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 DDx includes ankylosing spondylitis (less likely given no aortic rootdilatation) vs endocarditis (no evidence on TTE) vs aortitis. Presumed to be the cause of his heartfailure symptoms - orthopnea and LE edema, so would benefit from diuresis. Evaluate for TAVR vs surgery with DUGLAS today, which will also give better definition of mitral valve disease. - Diurese after DUGLAS with goal net negative 1L today - Daily weights, I/Os, Cr - O2 by nasal cannula if needed - F/u blood cultures - CRP wnl - NPO at midnight for DUGLAS today - Discuss with TAVR and CT surgery teams - Preoperative ischemic eval - no risk factors for CAD so will do CT coronary in place of LHC giventhrombocytopenia - F/u ID recs re: any relation between HIV/HAART and aortic regurgitation; timing of viral load clearance ?? #HIV Presumably contracted from female sexual partner in [facility]. On Biktarvy, CD4 529. Has oral thrush,on fluconazole. ID aware, continuing HAART. 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 Describes inflammatory symptoms in SI joint and has SI tenderness. Gets better with warm baths, icing. CRP wnl. - f/u HLA B27 - SI joint x-ray ?? #Chronic thrombocytopenia - Daily CBC, continue to monitor ?? 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 VTE Prophylaxis: Pharmacologic Prophylaxis: Enoxaparin (Lovenox) 40 mg SQ daily Discharge Plan: Uncertain at this time Rosio Treviño MD Internal Medicine Resident 05/15/19 Associated attestation - Simona Hamilton MD - 05/15/2019 1519 EDT Attending Attestation: I have personally seen and examined Jose Cheung, discussed the patient's management with the team, and agree with the findings and plan as outlined by Dr. Treviño. DUGLAS confirms severe AI with only mild thickening of the aortic valve. His CRP was not elevated on admission so this may be a consequence of an earlier inflammatory etiology. On the other hand, there are some signs pointing to acuity, like the normal LV size and the acute symptoms of heart failure. In light of those symptoms, surgery is indicated, and we will contact CT surgery. In addition, we will involve ID with question of viral load management perioperatively and any other thoughts regarding the e tiology of the AI. Simona Hamilton MD * Federico Aguillon - 05/15/2019 0823 EDT Cardiology Progress note Service Date: 05/15/2019 Admit Date: 05/14/2019 12:14 Reason for Admission: 68 y.o. male admitted with a chief complaint of shortness of breath and now with a principal diagnosis of aortic regurgitation. Events/ Procedures in the last 24 Hours: no significant events Subjective/Objective Subjective Jose states that he feels about the same today. He continues to feel baseline at rest but has SOB when lying down or sitting back. He was able to ambulate throughout the hallway yesterday and willdo so again today when his daughter arrives. He continues to have lower back pain radiating to his legs per baseline. He clarified today that he typically takes APAP 1000mg a few times per day at home. He also confirmed his story about how he believes he contracted HIV and denies drug use or male sexual partners since his family is not present at the bedside this morning. He denies CP, N/V, abdominal pain, palpitations. He was advised to collect his urine during this admission for tracking purposes as he had not been doing so. Review of Systems Pertinent items are noted in Subjective/HPI Objective Vital Signs Patient Vitals for the past 8 hrs: BP Heart Rate Resp Temp SpO2 O2 Device 05/15/19 0049 125/66 84 BPM 16 37 ??C (98.6 ??F) 97 % None Physical Exam General: alert, overweight, no acute distress HEENT: NC/AT, normal sclera and conjunctivae, MMM, white plaques on tongue CV: RRR with normal S1/S2, S3 present, no murmur Pulm: normal WOB, CTAB GI/: deferred Neuro/MSK: CAOx4, LOCKHART, good bulk and tone, SI joint tenderness on palpation greater on left than right Skin: NWD Ext: pitting edema to mid-calf bilaterally, no cyanosis Is PICC or central line present? No, PICC/Central line not present. Medications Reviewed: Changes notable for add furosemide 20mg IV Q12 Labs Reviewed: No significant findings. CBC: Recent Labs 05/14/19 1527 05/15/19 0532 WBC 6.43 7.34 HGB 14.5 14.5 HCT 42.7 41.5 MCV 91 90 PLT 277 257 BMP: Recent Labs 05/14/19 1527 05/15/19 0532 CREATININE 0.91 1.06 NA 140 138 K 4.2 4.4 CL 102 102 CO2 32 30 MG -- 2.0 Non-Invasive Findings last 24 hours: CXR: The cardiac silhouette and pulmonary vascularity are normal. The lungs are underinflated, but clear aside from bibasilar linear opacities consistent with scarring or atelectasis. There are no findings to specifically suggest pneumonia. There is no evidence of pleural fluid or pneumothorax. The skeleton is unremarkable for age. Telemetry: yes, Normal sinus rhythm ECG: normal sinus rhythm or inferior Q-wave(s) Assessment/Plan Assessment/Plan Jose is a 68 y/o male with a history significant for recent HIV diagnosis in March 2019 (CD4 count 529, viral load 94,797) on biktarvy, BPH, uveitis, chronic thrombocytopenia, and active oral candidiasis admitted to the cardiology service for moderate to severe aortic regurgitation who is clinically stable. Patient Active Hospital Problem List: Aortic valve regurgitation The etiology of his aortic regurgitation is unclear at this time. Given his history of uveitis and back/knee pain with SI joint tenderness it may be attributable to ankylosing spondylitis. Workup should also be done for infective endocarditis with aortic vegetation given his recent diagnosis of HIVbecause although his CD4 count is not severely diminished he has had atypical infections such as oral candidiasis. He lacks a marfanoid habitus and has no history of significant chest trauma. 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 BPH - tamsulosin 0.4mg PO daily ?? Pain - APAP 650mg PO Q4 PRN ?? FEN - cardiac diet VTE Prophylaxis Pharmacologic Prophylaxis: Enoxaparin (Lovenox) 40 mg SQ daily Discharge Plan Uncertain at this time Federico Aguillon 05/15/2019 8:24 * Deidre Skelton MD - 05/14/2019 1114 EDT Images from the original note were not included. [employer] Brief H&P (Please refer to resident document dated 05/14/2019 for full H&P) Mr. Jose Cheung is a 68YOM with PMHx pertinent for HIV(dx'ed 03/2019 ->CD4 529; VL94,797; on Biktarvy), BPH, chronic thrombocytopenia(baseline plts 70-90), esophageal candidiasis and uveitis who presents as a direct admit from outpatient Cardiology visit w/ Dr. Stauffer for evaluation of severe aortic valve regurgitation. Patient noted the onset dyspnea on exertion and at rest a few weeks prior to presentation. At that time, he also developed profound orthopnea (leading to an inability to sleep) in addition to mild LE edema. He has lost 25lbs over the prior months. Previously, he was quite active at baseline however now cannot ambulate > a few feet prior to becoming dyspneic. Vitals reviewed AF; HR 70s; RR 16; HR90s; BD435g/60s;O2 sat>95% Gen- well appearing male sitting up in bed in NAD; no conversational dyspnea CV-RRR, no murmurs appreciated by this examiner, +3 Lungs - decreased breath sounds in bases MSK -trace - +1 edema to mid alves, WWP Neuro- grossly nonfocal Pertinent Prior Cardiac Studies TTE 05/08/2019 A/P 1. Severe Aortic Regurgitation - in a symptomatic patient (exertional dyspnea, orthopnea/Stage D)- meets criteria for aortic valve repair versus replacement. Clinical picture is consistent acute AR w/ endocarditis as possible underlying etiology. DDx would also include an infectious aortitis vs ankylosing spondylitis -DUGLAS -ID consult -blood cx ordered -diuretic naive so IV lasix 20 mg trial tonight 2. Preoperative Evaluation - Pt has no major CAD risk factors and no reports of angina so noninvasive coronary angiography w/ CT coronary may be good alternative in this pt given concurrent chronic thrombocytopenia. 3. Chronic Thrombocytopenia - repeat labs ordered 4. HIV (dx'ed 03/2019 ->CD4 529; VL94,797; on Biktarvy) Deidre Skelton MD Cardiovascular Fellow Pager [phone] 05/14/19 13:35 documented in this encounter H&P Notes * Essence Wang MD - 05/15/2019 0941 EDT DUGLAS Sedation for Procedure History & Physical Date: 05/15/2019 Time: 9:54 Location: Echo lab Planned Procedure: DUGLAS Chief Complaint/Indications for Procedure: 68 yo man with a PMH of HIV, esophageal candidiasis and bilateral uveitis who presented with dyspnea and found to have moderate-severe AI and mild-moderate MR. DUGLAS to assess aortic and mitral valves. History Previous Complication with Sedation and/or Anesthesia? No Allergies: No Known Allergies Current Medications: Current Facility-Administered Medications: acetaminophen (TYLENOL) tablet 650 mg oral Q4H PRN zkfyniwkryk-asflxadnognbi-hgonqkicl alafenamide (BIKTARVY) 50-200-25 mg per tablet 1 Tab oral DAILY enoxaparin (LOVENOX) injection 40 mg subcutaneous DAILY fentaNYL citrate (PF) 50 mcg/mL injection fluconazole (DIFLUCAN) tablet 100 mg oral DAILY lidocaine (XYLOCAINE) 2 % viscous solution midazolam (PF) (VERSED) 1 mg/mL injection sodium chloride 0.9 % (flush) flush 3 mL intravenous Q8H tamsulosin (FLOMAX) capsule 0.4 mg oral DAILY Past Medical History: No past medical history on file. Social History: No past surgical history on file. Social History Tobacco Use ??? Smoking status: Former Smoker ??? Smokeless tobacco: Never Used Substance Use Topics ??? Alcohol use: Not on file Family History: No family history on file. Review of Systems as pertinent: A complete 10 point review of systems was performed and is otherwise negative. Physical Exam Vital Signs: BP 120/64 Temp 37 ??C (98.6 ??F) (Tympanic) Resp 24 Ht 167.6 cm (66) Wt 76.2 kg (168 lb) SpO2 98% BMI 27.12 kg/m?? Heart Examination: Cardiac Regularity: Regular Respiratory Examination: Respiratory Pattern: Dyspnea with exertion Breath Sounds Right: Fine crackles Breath Sounds Left: Fine crackles Abdominal Examination: Soft, non-tender, bowel sounds normal, no masses, no organomegaly Additional physical exam related to the proposed procedure, patient activity, disease state and treatment as pertinent: Assessment Previous complications with sedation or anesthesia?: No Airway Concerns: Other Anesthesia Classification: ASA 2 Plan: Proceed with sedation for procedure Fasting Time: Time of last liquid intake: 2099 Date of Last Liquid Intake: 05/14/19 Time of last solid intake: 2099 Date of last solid intake: 05/14/19 Patient Appropriate Candidate for Planned Sedation?: Yes Essence Wang MD Drier Unloader * Federico Aguillon - 05/14/2019 1228 EDT Cardiology Admitting H&P Admit Date: 05/14/2019 Date of Service: 05/14/2019 PCP: Lorrie Conte Code Status: Full Code Chief Complaint: Shortness of breath HPI: Jose is a 68 y/o male with a history significant for recent HIV diagnosis in March 2019 (CD4 count 529, viral load 94,797) on biktarvy, BPH, uveitis, chronic thrombocytopenia, and oral candidiasis who presents today as a direct admit from an outpatient cardiology appointment with Dr Stauffer with shortness of breath where he was diagnosed by echo with new onset moderate to severe aortic regurgitation. His shortness of breath began around 04/21/19 and has been associated with LE edema. He states that he had been noticing increasing SOB on exertion for a few years prior to a sudden increase in severity around 04/21. He states that since then he has had SOB when laying down and even when in a recl ined sitting position. He denies CP, abdominal pain, EDGAR, dizziness, N/V, diarrhea, urinary symptoms(other than baseline urgency treated with flomax). He acknowledges a 25 pound weight loss in the last few months. He has a history of intermittent palpitations throughout his life without definitive diagnosis. He has had uveitis for about 40 years which has required some surgical intervention in the distant past. He states that he has had severely limited mobility since the onset of more severe SOB whereas before his physical activities were limited only by knee discomfort from suspected osteoarthritis well managed with steroid injections. He states that his lower back and leg pain have been worsening over the last few months as well which are now helped only by taking 3 warm baths per day.He has had a number of illnesses suspected to be related to his recently contracted HIV including flu-like illness, diarrheal illness, and oral thrush for which he is still being treated. He states that he believes he contracted HIV from one female sexual partner in [facility]. He lives in [facility] [facility] [place] [facility] in a duplex home with his brother in the other half and two of his three daughters live nearby in [place]. He typically spends time outside gardening, hunting, and maintaining his own home. He has a remote history of tobacco use amounting to about 2 pack years. He drinks only occasionally. He denies all other drug use. Two of his daughters are present today during our conversation and they are supportive. Prior Cardiac History: TTE for tachycardia in 2017 at [facility]. Intermittent palpitations. PMH PSH Uveitis HIV Oral candidiasis Thrombocytopenia BPH Unknown Ocular Surgery Tonsillectomy [place] Tooth Extraction Right Rotator Cuff Repair Left knee arthroscopy Social History Family History 2 pack year smoking history (quit over 40 years ago) Infrequent alcohol use No other drug use Diabetes (mother and father) Alzheimer's (mother) Liver disease (father) Medications Medications Prior to Admission Medication Sig Dispense Refill Last Dose ??? euuwdbqribh-tekxibgjnpsfg-vtypltozz alafenamide (BIKTARVY) 50-200-25 mg per tablet Take 1 Tab by mouth daily. 05/14/2019 ??? fluconazole (DIFLUCAN) 100 mg tablet Take 100 mg by mouth daily. 05/13/2019 ??? tamsulosin (FLOMAX) 0.4 mg capsule Take 0.4 mg by mouth daily. Take one capsule by mouth every day 30 minutes after the same mealtime each day for prostate/urinary symptoms. 05/13/2019 Allergies No Known Allergies Review of Systems: Pertinent items are noted in Subjective/HPI Objective/Physical Exam: VS: Patient Vitals for the past 8 hrs: BP Resp Temp SpO2 O2 Device 05/14/19 1256 -- -- -- -- None 05/14/19 1240 -- -- -- -- None 05/14/19 1133 131/68 16 37.1 ??C (98.8 ??F) 95 % None Pain: Patient Vitals for the past 8 hrs: Numeric Pain Level (Scale 1-10) 05/14/19 1141 0 Weight: Weight : 76.2 kg (168 lb) Body mass index is 27.12 kg/m??. Glucose Readings (last 8 hours): No results for input(s): GLUCOSEFINGE in the last 72 hours. Exam: General: well appearing, alert, overweight, no acute distress HEENT: NC/AT, GHAZALA, normal sclera and conjunctivae, MMM, white plaques on tongue CV: normal S1/S2, S3 present, no MRG, JVP normal Pulm: normal WOB at rest, diminished bilaterally in bases, all other polanco CTAB GI/: abdomen soft, non-tender, no organomegaly Neuro: CAOx4, LOCKHART, grossly normal MSK: good bulk and tone Skin: NWD Ext: no cyanosis, 1+ pitting edema bilaterally up to mid-calf Pressure Ulcer Present on admission? No Labs: BMP, CBC, B27 ordered Other Studies: Findings EKG: normal sinus rhythm or inferior Q-wave(s) Assessment: Jose is a 68 y/o male with a history significant for recent HIV diagnosis in March 2019 (CD4 count 529, viral load 94,797) on biktarvy, BPH, uveitis, chronic thrombocytopenia, and active oral candidiasis who presents today as a direct admit from an outpatient cardiology appointment with Dr Stauffer with shortness of breath where he was diagnosed by echo with new onset moderate to severe aortic regurgitation. Plan : Patient Active Hospital Problem List: Aortic valve regurgitation The etiology of his aortic regurgitation is unclear at this time. Given his history of uveitis and back/knee pain it may be attributable to ankylosing spondylitis. His history of potentially risky sexual behavior necessitates ruling out tertiary syphilitic aortitis. Workup should also be done for in fective endocarditis with aortic vegetation given his recent diagnosis of HIV because although his CD4 count is not severely diminished he has had atypical infections such as oral candidiasis. He lacks a marfanoid habitus and has no history of significant chest trauma. 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 Cheung is a 68M PMH HIV (diagnosed in March, CD4 529 and VL 94, on Biktarvy), thrombocytopenia, BPH, osteoarthritis and bilateral uveitis who presents with subacute progressive shortness of breathand found to have aortic regurgitation. Patient was in his usual state of health until earlier this summer when he developed flu-like symptoms and diarrhea. He then developed oral thrush, significant weight loss, and was found to have contracted HIV. This was presumed to be do to a female sexual partner in [facility]. In early April, in the setting of this sickness, he started getting short of breath. On April 21, this progressed to the point where he was too dyspneic to sleep and so he sought medical care. He describes being unable tolay flat for the past two weeks because of orthopnea. He also has an excellent baseline (no limitation on how far he can walk), and recently has only been able to walk about a block or less before hegets short of breath. He describes a sensation of pressure at the bottom of his chest that makes itdifficult to breathe. He has no associated chest pain. He noticed mild leg swelling that started atthe same time as his dyspnea. He has not had any chest pain. Over the past few months, he also describes worsening pain in his lower back and legs. He has a history of osteoarthritis in bilateral knees that is worse with activity, but this is different from his current pain. He is currently experiencing pain in his lower back that he attributes to deconditioning and not moving around so much. This pain radiates down into his thighs. It is better with ice and with warm baths, which he is taking 3 times a day due to the severity of his pain. He has no symptoms in his hands or in his upper extremities. ROS: No headaches. History of vertigo/dizziness, but none recently. No nausea/vomiting. Diarrhea has improved. He has lost 25 pounds in the last few months. History of bilateral uveitis x40 years, norecent vision changes. He also has urinary urgency. Denies PND. Prior Cardiac History: History of intermittent palpitations, TTE 2017 performed due to tachycardia, patient not aware of any abnormal results. No history of heart failure or of valvular disease. PMH PSH No past medical history on file. Thrombocytopenia - since late childhood, bone marrow biopsy reportedly negative No past surgical history on file. Rotator cuff B/l knee arthroscopy Umbilical hernia Tonsillectomy Cataract removal Social History Family History Social History Tobacco Use ??? Smoking status: Not on file Substance Use Topics ??? Alcohol use: Not on file 2 years of smoking cigarettes, last cigarette 40 years ago Occasional EtOH Lives in [facility], brother lives next door, 3 local daughters; prior to all this spent time outdoors doing yardwork, watching sports, golfing, etc. No family history on file. Dad of liver cancer Dad and mom with diabetes Medications Medications Prior to Admission Medication Sig Dispense Refill Last Dose ??? tdlbhtnhric-orsbkdsgvdfpk-nprgqkgkf alafenamide (BIKTARVY) 50-200-25 mg per tablet Take 1 Tab by mouth daily. 05/14/2019 ??? fluconazole (DIFLUCAN) 100 mg tablet Take 100 mg by mouth daily. 05/13/2019 ??? tamsulosin (FLOMAX) 0.4 mg capsule Take 0.4 mg by mouth daily. Take one capsule by mouth every day 30 minutes after the same mealtime each day for prostate/urinary symptoms. 05/13/2019 Allergies No Known Allergies Objective/Physical Exam: VS: Patient Vitals for the past 8 hrs: BP Resp Temp SpO2 O2 Device 05/14/19 1256 -- -- -- -- None 05/14/19 1240 -- -- -- -- None 05/14/19 1133 131/68 16 37.1 ??C (98.8 ??F) 95 % None Pain: Patient Vitals for the past 8 hrs: Numeric Pain Level (Scale 1-10) 05/14/19 1637 8 05/14/19 1141 0 Weight: Weight : 76.2 kg (168 lb) Body mass index is 27.12 kg/m??. Glucose Readings (last 8 hours): No results for input(s): GLUCOSEFINGE in the last 72 hours. Exam: Physical exam: Gen: NAD, awake, alert, oriented, daughters at bedside Skin: Warm, dry, intact on visible surfaces with no rashes or lesions HEENT: conjunctivae clear and non-icteric, EOMI, +oral thrush Cardiac: Regular rate and rhythm, no murmurs/rubs/gallops, +S1/S2, +S3, no JVD Resp: Lung sounds decreased at bases, +bilateral end-inspiratory crackles at bases, no wheezes Abd: Soft, non-tender, non-distended, no visible lesions or scars, +bowel sounds Extr: Bilateral pitting edema to the mid-alves bilaterally, no apparent limited ROM Neuro: Awake and oriented, strength and sensation grossly intact Psych: Appropriate mood and affect Pressure Ulcer Present on admission? No Data Review: Labs: CBC: Recent Labs 05/14/19 1527 WBC 6.43 RBC 4.68 HGB 14.5 HCT 42.7 MCV 91 MCH 31.0 MCHC 34.0 PLT 277 BMP: Recent Labs 05/14/19 1527 NA 140 K 4.2 CL 102 CO2 32 CREATININE 0.91 CXR: The cardiac silhouette and pulmonary vascularity are normal. The lungs are underinflated, but clear aside from bibasilar linear opacities consistent with scarring or atelectasis. There are no findings to specifically suggest pneumonia. There is no evidence of pleural fluid or pneumothorax. The skeleton is unremarkable for age. EKG: NSR Assessment: Jose Cheung is a 68M PMH recently diagnosed HIV (CD4 529), bilateral uveitis who presents with subacute progressive dyspnea and orthopnea associated with inflammatory lower back pain, now found tohave aortic regurgitation of unknown etiology. Plan : #Aortic insufficiency c/b dyspnea on exertion DDx includes ankylosing spondylitis (less likely given no aortic root dilatation) vs endocarditis (no evidence on TTE) vs aortitis. Presumed to be the cause of his heart failure symptoms - orthopnea and LE edema, so would benefit from diuresis. Evaluate for TAVR vs surgery. - Diurese with furosemide 20mg IV x1 and assess output for tomorrow, goal net neg 1-2L - Daily weights, I/Os, Cr - O2 by nasal cannula if needed - F/u blood cultures - F/u HLA-B27 - NPO at midnight for DUGLAS tomorrow - Discuss with TAVR and CT surgery teams - Preoperative ischemic eval - no risk factors for CAD so will do CT coronary in place of LHC giventhrombocytopenia #HIV Presumably contracted from female sexual partner in [place]. On Biktarvy, CD4 529. Has oral thrush,on fluconazole. ID consulted, continuing HAART. 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 Treviño. Echo reviewed. Apart from the unexplained aortic regurgitation (without ascending aorta dilation) he alsohas an abnormal appearing mitral valve with subvalvular thickening and regurgitation. Will require a DUGLAS to better define valvular pathology. Obtaining blood cultures. Still some dyspnea with exertion and orthopnea, will continue to diurese carefully. Coronary assessment, can start with CCTA in light of thrombocytemia. Simona Hamilton MD documented in this encounter Procedure Notes * Yogesh Pat MD - 05/24/2019 2288 EDT Procedure note: Chest tube and pacing wires removed at bedside and covered with occlusive dressing. Patient tolerated procedure and remained HD stable. No changes in respiratory status. Yogesh Pat MD PGY-3 Pager: #[phone] 05/24/2019 13:39 * Manuel Bateman MD, MD - 05/20/2019 7096 EDT Cardiovascular Catheterization Laboratory Preliminary Report -- Catheterization Date of Service/Procedure: 05/20/2019 Attending Physician: Manuel Bateman MD Fellow: Kelly Manrique MD Pre-Procedure Diagnosis /NCDR Indication: Jose Cheung is a 68 y.o. year old male with valvulardisease. Chest Pain Symptom Assessment: Atypical Angina Heart Failure: Yes: NYHA Class IV CHSA Clinical Frailty Scale: 2: Well Prior Stress Testing? No Anesthesia: A moderate level of anesthesia/conscious sedation was used in addition to local anesthesia. Access: Right radial artery Procedure: He was brought to [facility] Cardiac Catheter[facility] Laboratory for the procedure: Diagnostic coronary/graft angiography and Left heart cath. Closure: TR Band Post-Procedure Condition: The condition of the patient was Fair. Complications: None. IV Contrast Total: 45 mL X-ray Dose: 198 mGy Estimated Blood Loss: Minimal. Unless otherwise noted,there were no specimens removed, cultures obtained, or drains retained. Research Study: Patient is not enrolled in a research study. Diagnostic Cardiac Study Results Left main: normal Left anterior descending: large, dominant. MLI. Left circumflex: Large, non-dominant. 80% mid LCx disease. Right coronary artery: large, dominant. 80% mid RCA disease, followed by a significant distal RCA narrowing. Grafts: none Left Ventriculography and Hemodynamic Results LVEDP 15 mmHg There was no gradient across the aortic valve. Endovascular Study Results None Post-Procedure Diagnostic Conclusion: Cardiac surgery is indicated. Plan: See post-procedure orders. Continue prior medications. At the completion of the procedure, the attending physician has explained the findings, therapies, any complications and treatment plan to the patient. With the patients consent, all family members and patient support persons who were present at the conclusion of the procedure have been notified ofthese results and treatment plans as well. Post Procedure Follow Up: Patient to follow up with PCP in 2 weeks Post Interventional Conclusion/Physician Disposition: (check one main category) Inpatient procedure, continue inpatient status (no procedural complication required) Manuel Bateman MD PagerNumber: [phone] 05/20/2019 14:09 * Essence Wang MD - 05/15/2019 1100 EDT Transesophageal Echocardiogram Brief Post-Procedure Note Date of Procedure: 05/15/2019 Attending: Jose Stauffer MD Fellow: Essence Wang MD Pre-Op Diagnosis: Aortic regurgitation Post-Op Diagnosis: Aortic regurgitation Procedure: Transesophageal echocardiogram. Findings: Please see report in Vericis/Epic for details. Anesthesia Type: A moderate level of anesthesia/conscious sedation was used. Estimated Blood Loss: Unless otherwise noted, there was no blood loss, specimens removed, cultures obtained, or drains retained. Complications: None Disposition and Condition: The patient was sent back to the original unit in Good condition. Essence Wang MD Drier Unloader documented in this encounter Consult Notes * Lul Vyas MD - 05/22/2019 1402 EDT SICU Post-Op Cardiothoracic Surgery Admit Note HPI: Jose Cheung is a 68 y.o. male w/ a PMHx of HIV (diagnosed in March of 2019, on Biktarvy), thrombocytopenia, BPH, osteoarthritis, and b/l uveitis who presented with severe, progressive shortness of breath that started in early April. The dyspnea soon progressed to the point where he was unable to sleep, so he sought medical attention. An echocardiogram performed at [facility] on 05/08 revealed severe aortic regurgitation, and he was referred to [facility] for additional workup. He was seen in cardiology clinic on 05/14, where he was determined to be a candidate for TAVR vs. surgical replacement and was subsequently admitted for further workup. A DUGLAS was performe d which demonstrated severe aortic regurgitation and no evidence of endocarditis. He was unable to tolerate lying flat for a CT cardiac angiogram and was therefore not a candidate for TAVR. CT surgery was consulted, and he was determined to be a candidate for surgical AVR. Cardiac catheterization was performed 05/20 which demonstrated multivessel disease. He was taken to the OR 05/[address] Barajasfor CABG x2 with aortic valve replacement. Postoperatively he was transferred to the SICU intubatedand hemodynamically stable on phenylephrine gtt for further management. Past Medical History: Diagnosis Date ??? Aortic regurgitation ??? BPH (benign prostatic hyperplasia) ??? HIV (human immunodeficiency virus infection) (HCC-CMS) ??? Osteoarthritis ??? Thrombocytopenia (HCC-CMS) ??? Uveitis Patient Active Problem List Diagnosis Code ??? Aortic valve regurgitation I35.1 Cath Results: Left main: normal Left anterior descending: large, dominant. MLI. Left circumflex: Large, non-dominant. 80% mid LCx disease. Right coronary artery: large, dominant. 80% mid RCA disease, followed by a significant distal RCA narrowing. Grafts: none Preoperative Echo: 1. Left ventricle: The cavity size was normal. Wall thickness was ? normal. Systolic function was normal. The estimated ejection fraction ? was 55-60%. Wall motion was normal; there were no regional wall ? motion abnormalities. 2. Right ventricle: The cavity size was normal. Wall thickness was ? normal. Systolic function was normal. 3. Aortic valve: Trileaflet; mildly thickened leaflets. There was an ? eccentric jet of severe regurgitation directed towards the mitral ? anterior leaflet. Severity was suggested by diastolic flow reversal ? in the ascending aorta. Risk Factors [ ] HTN ? [ ] HLD? [ ] GERD [ ] Diabetes Mellitus [ ] Cardiac Family History?[ ] COPD [ ] Atrial fibrillation [ ] Alcohol abuse? [ ] CHF [ ] Tobacco? Pre-Operative Medications: Other medications: ASA [ ] Beta-Lani [ ] Statin [ ] YADY-I [ ] Coumadin [ ] Plavix [ ] Other [ ] Doxazosin [ ] Finasteride [ ] HCTZ [ ] Dundas 3 FA [ ] No Known Allergies S/P CABG x2 w/ AVR CABG: Great saphenous vein to obtuse marginal Great saphenous vein to PDA EF: Normal Intraoperative events: uncomplicated transient mitral regurge which had resolved at the end of the case Pump Time: 115 Clamp Time: 85 Chest Tube(s) Wires: Currently Pacing: Mediastinal [x] Left Pleural [ ] Right Pleural [ ] Pericardial juanjo drain [ x] None Atrial [ ] Ventricular [ ] Both [x ] Yes [x ] A sense V pace (DDD) No [ ] Intra-op fluids: Blood Products Crystalloid UOP 650 mL pump blood 2000 mL 400 mL Post-op: Infusions: Phenylephrine Intubation Grade: 1 Vent Settings: Mode: ASV Rate: Vt 490 PEEP 5 FiO2: 100 Lines: right IJ, left a-line, 2 right PIV, 1 Left PIV, Garcia, ET tube taped at 22, AV pacing wired,mediastinal tube, Pericardial juanjo drain Exam: Gen: intubated, sedated Heart: RRR, Atrial sensing v pacing Lungs: CTAB, sternum stable, incision C/D/I, chest tube w/serosang drainage Abd: S, ND : garcia in place with clear urine Ext: WWP, no LE edema bilaterally, RLE with endoscopic SV incisions CDI with dermabond Outs: UOP: 400 mL 40 upon arrival Chest Tube: 30 mL Assessment and Plan:@ is a 68 y.o. male now POD#0 s/p CABG x2 and AVR for multivessel disease and moderate to severe aortic valve regurgitation of undetermined etiology. He was transferred to the SICU intubated. Currently hemodynamically stable on phenylephrine gtt. Neuro: Propofol for sedation while intubated. Pain control tylenol, gabapentin, tramadol, IV morphine, Dilaudid CV: Monitor hemodynamic status closely. Goal SBP <120. Plasmalyte boluses 500 ml if volume needed. Titrate pressors as needed. F/u post-op ECG. Currently atrial sensed v-paced. Phenylephrine drip Pulm: Wean vent as able as patient is warmed up. F/u post-op portable CXR. GI/FEN: NPO for now. Reassess on extubation. Can advance to cardiac diet (< 2g sodium) once extubated and able to tolerate. Check lytes now and in 6 hours. 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 Garcia in place. Monitor UOP. 40 cc upon arrival to SICU Endo: Monitor glucose and manage with insulin gtt. ID: Hx recently diagnosed HIV on Biktarvy. ID consulted and following. CD4 and viral load rechecked, Viral load 386 copies/ml, CD4 616 (05/16). S/p 2+ wks fluconazole for oral thrush, now discontinued. Heme: F/u post-op hemagram and 6 hour Hct. Most recently 35.2 @13:35 received 650 cell saver intra-op MSK: Patient w/ hx of osteoarthritis and inflammatory symptoms in SI joints. Ankylosing spondylitisin ddx for etiology of AV regurgitation. CRP wnl. No evidence of SI disease on xray. HLA B27 pending. Proph: SCD, PPI Lul Vyas MD 05/22/2019 [id number] Associated attestation - Rodríguez Mcarthur MD - 05/22/2019 0776 EDT Attending Attestation: I was asked by Jose Stauffer MD to consult on this critically ill patient. My involvement was required to monitor and direct the critical care that has been provided for the aforementioned life-threatening insults. I have seen and examined the patient with the resident on 05/22/2019 and I agree with their assessment and plan. Active Problems: Aortic valve regurgitation 68 yo M with severe AI and CAD, now POD 0 s/p AVR (tissue) and CABG (v-OM, v- PDA); weaned from CPB on enoch ggt and AV-pacing for CHB/asystole; post-cpb DUGLAS notable for preserved LVEF, normally function tissue aortic valve and mild MR; arrived to SICU with NMB reversed on enoch ggt. Cont prop sedation for now and reassess readiness to awaken in 2-4 hrs; full vent support with ASV; enoch ggt for sbp goal <120, additional 1-2L IVF prn, AV pacing (V rate low 40s underlying); insulin ggt prn; multimodal analgesia with small dose IV prn opioids for breakthrough pain; NPO for now, AD when able I spent greater than 35 minutes rendering critical care to this patient, exclusive of procedures. Rodríguez Mcarthur MD 05/22/2019 14:48 * Hamlet Barajas MD - 05/20/2019 1438 EDT Images from the original note were not included. Brief Cardiothoracic Surgery Update Note CC: Severe Aortic Insufficiency HPI: Our service was asked by Dr. Hamilton to consult on Jose Cheung for consideration of cardiac surgery. The patient is a 68 y.o. male nonhypertensive, nondiabetic, nonsmoker, with PMH of recent HIV diagnosis March 2019 on biktarvy, BPH, uveitis, chronic thrombocytopenia, and oral candidiasis who was admitted from Cardiology clinic on 05/14 with moderate to severe symptomatic aortic regurgitation. He underwent echocardiography in 2017 secondary to palpitations but was uncertain of results at that time. He notes that over the past 2 months he's had progressive dyspnea on exertion, orthopnea, and diminution in his exercise tolerance. He denies and syncopal or presyncopal symptoms. In lieuof his severe symptomatic aortic insufficiency he's being seen in consultation by cardiac surgery for anticipated AVR. Patient was unable to undergo non-invasive coronary imaging due to shortness of breath when supine therefore cardiac cath was done today which revealed multivessel disease. Patient Vitals for the past 24 hrs: BP Temp Temp src Resp SpO2 05/20/19 1425 123/58 -- -- 20 93 % 05/20/19 1404 128/65 -- -- -- 98 % 05/20/19 0824 (!) 146/71 36.7 ??C (98.1 ??F) Tympanic 18 99 % 05/19/19 2242 125/66 36.5 ??C (97.7 ??F) Tympanic 16 96 % 05/19/19 1940 136/78 37 ??C (98.6 ??F) Tympanic 16 97 % 05/19/19 1650 123/81 37 ??C (98.6 ??F) Tympanic 18 98 % Cath 05/20/2019 Left main: normal Left anterior descending: large, dominant. MLI. Left circumflex: Large, non-dominant. 80% mid LCx disease. Right coronary artery: large, dominant. 80% mid RCA disease, followed by a significant distal RCA narrowing. Grafts: none STS Some of the risks for surgery that were discussed with this patient include, but are not limited to: , stroke, heart attack, infection, bleeding and the need for a blood transfusion and post-operative arrhythmias. The STS risk calculator was discussed with the patient and the estimated mortality is 1.3% and the estimated mortality and morbidity is 8.1%. Knowing these risks the patient agreedto proceed with surgery and signed consent. Assessment: Case was discussed with Dr. Barajas and his cath from today was reviewed. It is our opinion that he would benefit from AVR (tissue/perceval) and CABG x2 (endoscopic vein harvest, no DELGADO graft). Patient is scheduled for surgery on , May 22. Risk Factors [ ] HTN [ ] HLD [ ] GERD [ ] Diabetes Mellitus [ ] Cardiac Family History [ ] COPD [ ] Atrial fibrillation [ ] Alcohol abuse [ ] CHF [ ] Tobacco Plan: - Pre-operative work up in place - Plan for CABG x2 (endovein) and AVR (tissue/perceval) on 05/22/[address] Barajas - Consent forms signed today Jackie Dallas PA-C Cardiothoracic Surgery Attestation statement: I saw and examined the patient with Ms. Burt ERICKSON. I agree with the findings and plan of care documented in her note. Hamlet Barajas MD, FACS' * Nas Kumari PA - 05/15/2019 1640 EDT Cardiothoracic Surgery Consult Chief Complaint: Severe aortic insufficiency HPI: Our service was asked by Dr. Hamilton to consult on Jose Cheung for consideration of cardiac surgery. The patient is a 68 y.o. male nonhypertensive, nondiabetic, nonsmoker, with PMH of recent HIV diagnosis March 2019 on biktarvy, BPH, uveitis, chronic thrombocytopenia, and oral candidiasis who was admitted from Cardiology clinic on 05/14 with moderate to severe symptomatic aortic regurgitation. He underwent echocardiography in 2017 secondary to palpitations but was uncertain of results at that time. He notes that over the past 2 months he's had progressive dyspnea on exertion, orthopnea, and diminution in his exercise tolerance. He denies and syncopal or presyncopal symptoms. In lieuof his severe symptomatic aortic insufficiency he's being seen in consultation by cardiac surgery for anticipated AVR. He's to undergo noninvasive coronary imaging today. He's received multiple dosesof IV Lasix with moderate symptomatic improvement. Past Medical History: No past medical history on file. Past Surgical History: Bilateral Eye surgery secondary to Uveitis. Right rotator cuff surgery. Bilateral knee arthoroscopies. Umbilical Herniorrhaphy. Family History: No family history on file. Social History: Nonsmoker. Rare Social ETOH usage. Denies illicit drug use past or present. Social History Socioeconomic History ??? Marital status: [...] on file Tobacco Use ??? Smoking status: Former Smoker ??? Smokeless tobacco: Never Used Substance and Sexual Activity ??? Alcohol use: Not on file ??? Drug use: Not on file ??? Sexual activity: Not on file Lifestyle ??? Physical activity: Days per week: Not on file Minutes per session: Not on file ??? Stress: Not on file Relationships ??? Social connections: Talks on phone: Not on file Gets together: Not on file Attends episcopalian service: Not on file Active member of [...] Social History Narrative ??? Not on file Medications: Current Facility-Administered Medications: acetaminophen (TYLENOL) tablet 650 mg oral Q4H PRN msiipngfnpt-nwphnffpskkde-rfsowtand alafenamide (BIKTARVY) 50-200-25 mg per tablet 1 Tab oral DAILY enoxaparin (LOVENOX) injection 40 mg subcutaneous DAILY fentaNYL citrate (PF) 50 mcg/mL injection fluconazole (DIFLUCAN) tablet 100 mg oral DAILY lidocaine (XYLOCAINE) 2 % viscous solution midazolam (PF) (VERSED) 1 mg/mL injection sodium chloride 0.9 % (flush) flush 3 mL intravenous Q8H tamsulosin (FLOMAX) capsule 0.4 mg oral DAILY Allergies: Patient has no known allergies. ROS: I performed a 10 point review of systems. Pertinent positives per HPI. All others negative. OBJECTIVE: VS: Blood pressure 120/66, temperature 36.9 ??C (98.4 ??F), resp. rate 18, height 167.6 cm (66), weight 76.2 kg (168 lb), SpO2 96 %. Gen: awake, alert, NAD HEENT: soft, no carotid bruits, no cervical lymphadenopathy, CV: RRR 1/6 diastolic murmur heard over left sternal border, 2+ DP & radials bilat Pulm:Bibasilar crackles. Abd/GI: Soft, NT, ND, +BS Skin/Ext: Warm, dry, no obvious lesions, 1+ edema Neuro: Awake, A&Ox3, LOCKHART well Psych: Awake, A&Ox3, normal exam Labs: Lab Results Component Value Date/Time WBC 7.34 05/15/2019 05:32 HGB 14.5 05/15/2019 05:32 HCT 41.5 05/15/2019 05:32 PLT 257 05/15/2019 05:32 NA 138 05/15/2019 05:32 K 4.4 05/15/2019 05:32 CL 102 05/15/2019 05:32 CO2 30 05/15/2019 05:32 CREATININE 1.06 05/15/2019 05:32 Chest x-ray: Findings: The cardiac silhouette and pulmonary vascularity are normal. The lungs are underinflated, but clear aside from bibasilar linear opacities consistent with scarring or atelectasis. There are no findings to specifically suggest pneumonia. There is no evidence of pleural fluid or pneumothorax. The skeleton is unremarkable for age. ?? Impression: No evidence of CHF ECHO: STUDY CONCLUSIONS* Impressions: ??Severe aortic regurgitation. There was no evidence of endocarditis. Summary: 1. Left ventricle: The cavity size was normal. Wall thickness was ? normal. Systolic function was normal. The estimated ejection fraction ? was 55-60%. Wall motion was normal; there were no regional wall ? motion abnormalities. 2. Right ventricle: The cavity size was normal. Wall thickness was ? normal. Systolic function was normal. 3. Aortic valve: Trileaflet; mildly thickened leaflets. There was an ? eccentric jet of severe regurgitation directed towards the mitral ? anterior leaflet. Severity was suggested by diastolic flow reversal ? in the ascending aorta. Cardiac catheterization: I personally visualized the cardiologic images and reviewed the laboratory values. STS Prediction Calculation ASSESSMENT: Jose Cheung was examined by and discussed with Dr. Barajas. It is our opinion that the patientis a candidate for cardiac surgery. Risk Factors [ ] HTN [ ] HLD [ ] GERD [ ] Diabetes Mellitus [ ] Cardiac Family History [ ] COPD [ ] Atrial fibrillation [ ] Alcohol abuse [ ] CHF [ ] Tobacco Some of the risks for surgery that were discussed with this patient include, but are not limited to: , stroke, heart attack, infection, bleeding and the need for a blood transfusion and post-operative arrhythmias. The STS risk calculator was discussed with the patient and the estimated mortality is % and the estimated mortality and morbidity is %. Knowing these risks the patient agreed to proceed with surgery and signed consent. PLAN: Lengthy discussion with patient and family to coordinate ongoing care. Patient will require cardiac catheterization prior to surgical AVR (unable to lie flat for CTA). Inlieu of his persistent orthopnea the patient and family would prefer to remain inpatient for further medical optimization. Will complete further surgical workup post cath and anticipate surgery on 05/22/2019. If patient is able to be discharged on po regimen will preop post-cath. Jessy Hernandez, [facility] Cardiothoracic Surgery #[id number] 05/15/2019 16:40 * Javid Parker DO - 05/15/2019 1418 EDT NFECTIOUS DISEASES INITIAL CONSULT Patient: Jose Cheung : 1950 Service: CT surgery Date of Admission: 05/14/2019 Date of Consultation: 05/15/19; 14:18 Requested by: Simona Hamilton MD Reason for consult: HIV infected patient admitted for severe aortic regurg. CHIEF COMPLAINT: Shortness of breath Antimicrobials: Fluconazole 100 mg p.o. daily since early April till present Biktarvy 1 tablet p.o. daily starting 26 April until present HISTORY OF PRESENT ILLNESS: Mr. Cheung is a 68 y.o. male with a history of HIV that was diagnosed in March 2019 when an HIV antibody was sent for a work-up of what was most likely a seroconversion event (patient had several weeks of fevers, chills, diarrhea, night sweats and thrush) following a highrisk exposure with a woman in [place] in the January timeframe. Patient was seen several times in the HIV clinic in [facility] once the diagnosis was made and was promptly started on Biktarvy by 26 April. On presentation, his initial CD4 count on 23 April was 529 at 16% and his HIV viral load was 94,797. His last HIV antibody that was negative was about 8 years ago in the [facility]. His genotype showed no resistance genes. As patient was noted to have thrush, he was also started on fluconazole with complete resolution of his mucosal lesions. Prior to starting on his ART patient noted the gradual onset of mild dyspnea on exertion and significant orthopneic dyspnea. After he started his ART globally his fevers, diarrhea, malaise and night sweats have resolved. In general, he feels much better compared to a month ago but his orthopneic dyspnea continued. Patient was seen by his primary care provider who ordered an echo which showed aortic regurgitation and then patient was referred to [facility] for further work-up. In the past 3 weeks he denies fevers, chills, nausea, vomiting, diarrhea. He no longer sees thick white plaques in his oropharynx as he did when he was diagnosed with thrush. No further difficulties with swallowing. REVIEW OF SYSTEMS: 10-point review of systems is negative except as mentioned in the HPI and as noted here. PAST MEDICAL BPH Esophageal candidiasis March 2019 HIV seroconversion syndrome March 2019 Bilateral chronic uveitis, followed by [facility] Baseline thrombocytopenia Tachycardia with a negative work-up at primary care provider several years ago No past medical history on file. SURGICAL HISTORY: Steroid injections for his knees in past No past surgical history on file. 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 Sexual: Patient denies MSM. He is from his area His last sexual contact prior to the one in [facility], was in [place] around 2011. Patient sounds like he spent less than a week with this woman that he met in [facility]. He does not know anything about her history. Exercise: Busy with yard work. Travel: From [place]. 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 Only other recent travel was a trip to [facility] in January 2019, then to [place] in February 2019. Both were vacations Other:HLA B 5701 negative, QuantiFERON gold -March 2019. Toxoplasma IgG negative, toxoplasma IgM negative, CMV IgG positive, CMV IgM negative. RPR nonreactive Social History Socioeconomic History ??? Marital status: [...] on file Tobacco Use ??? Smoking status: Former Smoker ??? Smokeless tobacco: Never Used Substance and Sexual Activity ??? Alcohol use: Not on file ??? Drug use: Not on file ??? Sexual activity: Not on file Lifestyle ??? Physical activity: Days per week: Not on file Minutes per session: Not on file ??? Stress: Not on file Relationships ??? Social connections: Talks on phone: Not on file Gets together: Not on file Attends episcopalian service: Not on file Active member of [...] Social History Narrative ??? Not on file FAMILY HISTORY: Pertinent for mother with Alzheimer's, father with liver cancer, he has 3 healthy daughters. 2 of which are physical therapist and live close by to him. The Family History was reviewed and is non-contributory for a past history of infection or immunocompromised state. ALLERGIES: No Known Allergies MEDICATIONS: Reviewed in MAR. Pertinent for Current Facility-Administered Medications: acetaminophen (TYLENOL) tablet 650 mg oral Q4H PRN bxoeckwlzog-mcahkxtqxskcu-pxzwzvgjx alafenamide (BIKTARVY) 50-200-25 mg per tablet 1 Tab oral DAILY enoxaparin (LOVENOX) injection 40 mg subcutaneous DAILY fentaNYL citrate (PF) 50 mcg/mL injection fluconazole (DIFLUCAN) tablet 100 mg oral DAILY furosemide (LASIX) injection 20 mg intravenous Now lidocaine (XYLOCAINE) 2 % viscous solution midazolam (PF) (VERSED) 1 mg/mL injection sodium chloride 0.9 % (flush) flush 3 mL intravenous Q8H tamsulosin (FLOMAX) capsule 0.4 mg oral DAILY PHYSICAL EXAM: VS: BP 127/59 (BP Cuff Location: Left arm, Patient Position: Sitting) Temp 36.4 ??C (97.5 ??F) (Tympanic) Resp 18 Ht 167.6 cm (66) Wt 76.2 kg (168 lb) SpO2 97% BMI 27.12 kg/m?? GENL: pleasant, NAD, patient seen and examined with daughters in room. EENT: PERRL, EOMI, sclerae anicteric, moist mucous membranes, no ulcers / lesions. thrush has resolved NECK: supple CARD: RRR, 2 out of 6 holosystolic ejection murmur PULM: clear to auscultation bilaterally w/o wheezes / rhonchi / rales BACK: no focal tenderness, no costovertebral angle tenderness ABDM: non-distended, normoactive bowel sounds, soft, non-tender, no hepatosplenomegaly MSK: no joint swelling or erythema EXTR: warm and well perfused, no edema, 2+ DP pulses palpable bilaterally SKIN: no rashes, no jaundice. No immunologic or vascular phenomenon concerning for endocarditis. NEURO: awake, alert and oriented x3 PSYCH: non-anxious, normal affect ACCESS: Peripheral IV LABORATORY: Reviewed in detail in PRISM. WBC/RBC/HGB/HCT/PLT/ANC7.34/4.60/14.5/41.5/257/-- (05/15 532) Estimated Creatinine Clearance: 60.2 mL/min (by C-G formula based on SCr of 1.06 mg/dL). MICROBIOLOGY DATA: Reviewed in detail in PRISM. Pertinent for: HIV and STD labs per HPI 14 May blood cultures no growth IMAGING DATA: I have independently reviewed the available imaging. 15 May SI joint plain films: No evidence of sacroiliitis. 15 May transesophageal echo, severe aortic regurg, there is no evidence of endocarditis. 14 May chest x-ray bibasilar linear opacities consistent with scarring or atelectasis. 14 May EKG normal sinus rhythm ASSESSMENT: 1. HIV newly diagnosed March 2019. Patient has been doing very well on Biktarvy since starting on 10A. Baseline CD4 count 529 at 16% and his HIV viral load was 94,797. No missed doses and symptoms of his sero-converting syndrome have resolved. 2. Severe aortic regurgitation without evidence of endocarditis. Patient denies recent symptoms, and no findings on exam, concerning for bacterial endocarditis. His RPR was nonreactive this month. Jan admit to having a baseline echo at his primary care provider's office about 2 years ago so it is unclear if there is some degree of aortic regurg at that time. There is some literature [id number] that notes an increase in aortic valve dystrophy and insufficiency in HIV infected patients with the working theory that HIV infection in the tissue has an effect on inflammation that contributes to valvular damage so the virus may be having some effect here but from an infectious disease standpoint the treatment would still be the same, ART. RECOMMENDATIONS: 1. Please send HIV viral load and CD4 count next blood draw tomorrow as he is about at the 3-week berry of taking ART and would like to see if we are making some progress on decreasing his viral load.You can order a CD4 count by ordering immunodeficiency panel in [facility] and it must be drawn with a CBC that has a differential. HIV VL is ordered as HIV RNA quantitation 2. He has been on his fluconazole for more than 2 weeks now and exam seems significantly improved. Would be okay to stop fluconazole at this point 3. His RPR in [facility] was nonreactive but it may be worth sending a syphilis antibody with next blood draw to be complete. Recommendations discussed with primary team Thank you for asking us to participate in this patient's care. Please call with questions or concerns. Javid Parker DO Pager [phone] Infectious Diseases Attending documented in this encounter OR Notes * OR Surgeon - Hamlet Barajas MD - 05/22/2019 0000 EDT OPERATIVE REPORT SERVICE DATE: 05/22/2019 PREOPERATIVE DIAGNOSES: Aortic insufficiency, coronary artery disease. PROCEDURE: On-pump aortic valve replacement (large Perceval valve), coronary artery bypass x2 (right greater saphenous vein to obtuse marginal and posterior descending coronary arteries), endoscopic right greater saphenous vein harvest. POSTOPERATIVE DIAGNOSES: Aortic insufficiency, coronary artery disease. SURGEON: Hamlet Barajas MD GEOGRAPHIC ANALYST: GLORIA Hines ANESTHESIA: Nas Alejandre MD FINDINGS: The patient had a trileaflet aortic valve with secondary regurgitation secondary to mild coaptation. The patient also had significant coronary artery disease in 2 of his coronary arteries that were grafted. The pericardium was loosely closed. FLUIDS: 600 mL pump blood, 2 L crystalloid. URINE OUTPUT: 400 mL. PUMP TIME: 115 minutes. CLAMP TIME. 85 minutes. TUBES: Mediastinal 36-Brazilian, 24-Brazilian Juanjo, atrial and ventricular wires not paced. SPECIMENS: Aortic valve. CULTURES: None. SPONGE AND NEEDLE COUNT: Correct. COMPLICATIONS: None. CATEGORY: Clean. DISPOSITION: Surgical intensive care unit. NARRATIVE: Due to the lack of a qualified senior cardiac surgical dressing maker, Mr Nas Kumari provided first assistance for this complex cardiac surgical operation. A 3-part WHO surgical time-out occurred for this procedure. Intravenous antibiotics were given within 30 minutes of incision. A hard stop cardiopulmonary bypass was done pre and post bypass. After satisfactory induction of general single-lumen endotracheal anesthesia, the patient's chest, abdomen, groins and legs were prepped and draped in the usual sterile fashion. Concomitant with median sternotomy, the right greater saphenous vein was harvested endoscopically and closed with layers of Vicryl, Monocryl and a skin sealant. The sternum was split in the midline, the pericardium was opened and the aorta was cannulated with 2 pledgeted 2-0 Ethibond sutures. A 2-stage venous catheter was passed through the right atrial appendage. A retrograde catheter was passed through the pursestring in the right atrium and directed in the co ronary sinus. A vent was placed across the right superior pulmonary vein with some difficulty into the left ventricle through the mitral valve. After satisfactory heparinization, the patient was placed in cardiopulmonary bypass. The aorta was cross clamped and retrograde cardioplegia was given. A transverse aortotomy was made 25 mm above the right coronary artery and the rest of the 1 L of [place] cardioplegia was given down the right and left coronary ostia directly. The trileaflet valve was excised and sent for pathology. The heart was lifted to the right and a spatulated end-to-side anastomosis was made between obtuse marginal coronary artery and saphenous vein using running 7-0 Prolene suture. Cardioplegia was given down the vein graft. Next, a spatulated end-to-side anastomosis was made between posterior descending coronary artery and saphenous vein using running 7-0 Prolene suture. Cardioplegia was given down the vein graft. Next, 3 guiding sutures were passed in the base of each sinus across the annulus of the aortic valve exactly 120 degrees apart. A large Perceval valve was chosen. The sutures were passed through the green suture loops of the large Perceval bovine valve. Under direct vision, the valve was placed within the aortic annulus. The valve was deployed. The delivery system was withdrawn and the valve seated very well. No annulus was seen. Next, the balloon was advanced into the aortic valve and inflatedto 4 atmospheres of pressure for a minimum of 30 seconds. The balloon was withdrawn and the valve seated well. The aortotomy was closed with a running 3-0 Prolene Anson type closure. The 2 proximal anastomoses were done with the cross clamp on using running 6-0 Prolene suture between saphenous vein and ascending aorta. The cross clamp was removed and the heart came back into heart block. Pacingwires were placed in the anterior surface of the right ventricle as well as right atrium. Carbon dioxide was infused in the operative field at 2 L per minute while the heart was open. Once we paced the heart and after 20 minutes of rewarming and de-airing, there was no air in the left ventricle, left atrium or ascending aorta. All vents were removed. The patient was weaned from cardiopulmonary bypass without any difficulty at all. Transesophageal echocardiography revealed an excellent functioning prosthesis with a 5 mm mean gradient and no evidence of any perivalvular leaks. All cannulas removed and pursestring sutures were tied down. Protamine was given, hemostasis achieved. The mediastinum was drained with a 24- Brazilian Juanjo drain directed posteriorly and a 36-Brazilian chest tube on top of the heart. The pericardium was closed with 2 interrupted silk sutures. The sternum w as reapproximated with 6 doubly looped heavy-gauge stainless steel wires. The rest of the incision was closed in layers. The patient tolerated the procedure well and was transferred back to the ICU in critical condition. Unless otherwise noted, there were no complications, no blood loss, no cultures obtained, no specimens removed, and no drains retained. Hamlet Barajas MD 10 53 PM / Hamlet Barajas MD pn Confirmation: [id number] Dictation ID: [id number] cc:Simona Stauffer MD documented in this encounter Miscellaneous Notes * Plan of Care - Jamari Cheung RN - 05/26/2019 1408 EDT Data: Patient was to increase metoprolol to 50mg BID today from 25mg BID yesterday. Patient and daughter also state that his weight has gone up 6 lbs since 05/22/19 and the edema in BLE has increased some. BP 106/67 this morning. NSR 90s. Action: Spoke with CT surg about edema and BP. Ordered to give Metoprolol 37.5mg BID and give 20mg PO lasix and then after a few hours, if stable, give additional dose of IV lasix 20mg. Response: Repeat BP 95/63 and then one hour later 88/61. Patient completely asymptomatic. Informed CT surg team and ok'd to hold on extra IV dose of Lasix. Patient discharged home via wheelchair with daughter Aydee. IV's and tele removed. Questions answered. Given valve card. JAMARI CHEUNG RN 05/26/2019 14:08 Forgot to recheck BP before leaving, but called patient's daughter Aydee who was present with reviewing discharge paperwork and advised to check his BP when they get home and to monitor it daily and if he becomes symptomatic (reviewed s/s) to call office. Aydee verbalized understanding. No barriersto learning noted. * Plan of Care - Evelin Smyth - 05/26/2019 1302 EDT 05/26/19 1302 Medicare IM Notice: IM notice status Patient received notification verbally and in writing while in hospital. IM notice given at discharge? Yes * Plan of Care - Sergo Land RN - 05/26/2019 0607 EDT Data: Pt admitted for shortness of breath related to aortic regurgitation. S/p AVR and CABG x2 on 05/22. Pt currently alert, oriented and independently ambulatory in room. Able to control pain with PO pain medications. Able to void bladder. PVRs and bladder scans ordered. On telemetry. Action: Monitor for changes in cardiac rhythm and chest pain not related to incision. Medicate for pain/discomfort. Continue PVRs and report high residual volumes. Promote rest at night. Response: No changes in cardiac rhythm throughout night. Pt able to control pain with PO pain medications. Able to rest throughout night with assistance of medication. Post void residuals remain minimal. SERGO LAND RN 05/26/2019 6:28 * Plan of Care - Nelson Brabosa RN - 05/25/2019 0588 EDT Problem: Daily Care Plan Goals Goal: Care Plan Documentation Outcome: Ongoing Flowsheets (Taken 05/25/2019 042) Area of Focus: Mobility Data: pt alert oriented times three. S/p Avr, CABG times 2. Vs are BP 94/65 (BP Cuff Location: Right arm, Patient Position: Sitting) Pulse 92 Temp 37.3 ??C (99.1 ??F) (Tympanic) Resp 18 Ht 167.6 cm (65.98) Wt 77 kg (169 lb 11.2 oz) SpO2 95% on Ra. At times he de sat with self correcting. Went for chest r- ray this am off tele, Action: chest x-ray showed bilateral plural effusion. Iv lasix given x 1. Po lasix schedule bid. K level at 3.5 replaced with 40 meq po Potassium times one. Schedule potassium bid. Pain controled with schedule tylenol . Voiding in urinal pvr done see flow sheet. Pt ambulated in hallway with PT and family He has tolerated walking. Has 3 PIV all are patent. Response: good po intake family at bed side all day. Will continue to monitor. Nelson Barbosa RN 05/25/2019 17:48 * Plan of Care - Tita Pearl RN - 05/24/2019 1351 EDT Problem: Daily Care Plan Goals Goal: Care Plan Documentation Flowsheets (Taken 05/24/2019 1007) Area of Focus: Mobility Goal This Shift: oob x3 Data: POD CABGx2 and AVR. Pt admitted from SICU. Reporting 0/10 pain Action: Garcia, chest tubes, and epicardial wires removed. DTV at 1705. Pt OOB with chair and bathroom with contact guard assist. Encouraged IS Response: Pt reporting 3/10 pain after OOB to bathroom. Resting in bed. Pt voiding. Will continue to encourage ambulation TITA PEARL RN 05/24/2019 13:52 * Plan of Care - Law Piña RN - 05/24/2019 0721 EDT 0700 Assumed care of pt received report at bedside from dell Syed pt assessment, monitor respiratory and hemodynamic vs per parameters will advise HO of acute changes will turn q2 and prn for pain control with pain meds prn and optimizing skin integrity * Plan of Care - Bertha Lincoln RN - 05/24/2019 0510 EDT Problem: Pressure Ulcer Prevention Goal: Absence Of Pressure Ulcer Outcome: Ongoing Problem: PAIN Goal: Patient's pain/discomfort is manageable/tolerable Outcome: Ongoing Problem: Daily Care Plan Goals Goal: Care Plan Documentation Outcome: Ongoing Goal: Pt to maintain stable HD and respiratory status. D: 1930- Report received, alarms parameters reviewed and set, assumed patient care. POD #1-2 s/p AVR and CABG x 2. AxOx3, LOCKHART, PERRL. 2 CT's, epicardial wires, garcia and cordis remainin place. A: See MAR and flow sheets. PLAN- Continue to monitor; hemodynamics, neurological, cardiovascular, respiratory and GI/U status. Monitor and treat for pain and anxiety. Provide education and support for patient and family. 0500: Pt rested well in between rounding/turn reposition Q2H. Medicated for pain with tramadol, tylenol and dilaudid. Generally 4-6/10 pain. Oxygen increase to 2 L NC through the night, LS quite diminished-encouraged use of IS but has poor [id number]. Pt requires frequent reminders to have slower, purposeful breaths rather than short/quick breaths. VSS overnight. R: Will continue to monitor and notify HO of any pertinent changes. * Anesthesia Post-Eval - Myra Piña, AA - 05/23/2019 1059 EDT Anesthesia Post op Note Jose Cheung [id number] Anesthesia received: General; Vital Signs: Temp: 36.6 ??C (97.9 ??F), Heart Rate: 89 BPM, Pulse: 70, BP: 109/74, Resp: 27, SpO2: 96 % Vital signs Stable: Yes Consciousness: Awake, Alert Patient's participation in evaluation:Able to participate Temperature Status: Normothermic Respiratory Status: Airway patent Supplemental O2: Nasal cannula Oxygen Saturation: Appropriate for condition Cardiovascular Status: Appropriate for condition Post-op Hydration: Adequate Nausea / Vomiting: None Pain Control: Adequate Current Pain Score: Numeric Pain Level (Scale 1-10): 1, Adult Nonverbal Pain ScaleTotal: 0 Post-op Assessment: Tolerated procedure well, No evidence of recall, Patient satisfied with anesthesia Disposition: Inpatient Complications: No apparent anesthetic complications KATT Tamayo 05/23/2019 10:59 * Plan of Care - Wilma yTson RN - 05/23/2019 0651 EDT Problem: Daily Care Plan Goals Goal: Care Plan Documentation Flowsheets (Taken 05/23/2019 0100) Area of Focus: Pain/ Comfort Note: Data: pt pod 1 from an AVR and CABG x2 - see flow sheet for data Action: monitored for pain and medicated as needed Response: pt reports adequate pain control with tylenol, gabapentin, tramadol and dilaudid Wilma Tyson RN 05/23/2019 6:49 * Plan of Care - Brendon Bunn RN - 05/23/2019 0021 EDT Data: POD 0-1, pain managed with PO tylenol and tramadol. Action: Pain medications given scheduled and PRN with good effect per patient. Pain assessed and reassessed. Turned/repositioned for comfort. Response: Will continue to monitor pt post operative pain while in SICU. Family at bedside and updated on pt progress/plan of care. See flowsheets for further Vs/assessment information. BRENDON BUNN RN 05/23/2019 0:21 * Plan of Care - Law Piña RN - 05/22/2019 1450 EDT 1430 Assumed care of pt received report at bedside from JONG Duenas, dell pt assessment, monitor respiratory and hemodynamic vs per parameters will advise HO of acute changes will turn q2 and prn for pain control with pain meds prn and optimizing skin integrity * Brief Op Note - Nas Kumari PA - 05/22/2019 1315 EDT Cardiothoracic BRIEF OP NOTE 05/22/2019 Jose Cheung [id number] Lorrie M Dg Pre-op diagnosis: Aortic Insufficiency//ASCVD [ ] DELGADO-LAD [ ] GSVG - Diag [ X] GSVG -OM [ ] GSVG -DRCA [X ] GSVG-PDA [x ] ENDOSCOPIC RIGHT GREATER SAPHENOUS VEIN HARVEST [ ] ENDOSCOPIC LEFT GREATER SAPHENOUS VEIN HARVEST Procedure: On Pump CABG x2 and Aortic valve replacement Post-op diagnosis: Same Surgeon: [x ] Hamlet Barajas MD, [ ] Saritha Bonds MD, [ ] Tra Hurt MD Clip Loading Machine Feeder: Due to a lack of a qualified surgical dressing maker, Nas Kumari PA-C provided first assistance for this complex cardiac surgical procedure. 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 FLUIDS: Blood Products Crystalloid UOP 600 cc pump blood [ ]PRBC units [ ]FFP units [ ] Platelets 5 packs 2000 cc LR 400 cc Pump Time: 115 min Clamp Time: 85 min Low Temps: Systemic degrees C Material Retained: Chest Tube(s) Wires: Currently Pacing: [X] Garcia [X] Cordis [ ] SWAN [X] A-Line [ ] IABP [x ]Mediastinal 36 Brazilian [x ] Mediastinal 24 Juanjo [ ] Left pleural 19 Juanjo [ ] Right pleural 19 Juanjo [x ]atrial [ x] ventricular [x ] both [ ]yes [x ] no Specimen: Cultures: none Sponge & Needle count correct [ ] Complications: none [ ] Category: [ ] clean, [ ] clean/contaminated, [ ] contaminated, [ ] dirty/infected Dispo: to SICU, intubated GLORIA Hines * Plan of Care - Ree Ojeda RN - 05/22/2019 0638 EDT Data: Assumed care of pt @ 1900. VSS overnight. Denies CP/SOB. Action: Pt prepped for CABG/AVR. Clipping & CHG baths done. NPO status maintained after midnight. Response: Labs drawn this AM. Will CTM. REE OJEDA RN 05/22/2019 6:38 * Plan of Care - Liset Ridley RN - 05/21/2019 1443 EDT Problem: Daily Care Plan Goals Goal: Care Plan Documentation Outcome: Met This Shift Flowsheets (Taken 05/21/2019 0900) Area of Focus: Education Goal This Shift: pre-op cabg/valve Data: patient scheduled for first case cabg/avr on , patient endorses no chest pain or SOB,mild FOSTER noted. Patient walking around halls independently and with daughter. Blood pressure 122/70, pulse 70, temperature 36.2 ??C (97.2 ??F), temperature source Tympanic, resp. rate 18, height 167.6 cm (66), weight 76.2 kg (168 lb), SpO2 96 %. Action: Patient and daughter watched [facility] video this afternoon, questions answered by Rn. Patient educated on IS use and importance post-op. Patient aware of NPO after midnight in anticipation for surgery. Response: patient remains in good spirits, daughter present during shift. Independent in room and halls. LISET RIDLEY RN 05/21/2019 14:43 * Plan of Care - Zoe Ross RN - 05/20/2019 2217 EDT BP 138/85 (BP Cuff Location: Left arm, Patient Position: Semi fowlers) Pulse 70 Temp 36 ??C (96.8 ??F) (Tympanic) Resp 16 Ht 167.6 cm (66) Wt 76.2 kg (168 lb) SpO2 97% BMI 27.12 kg/m?? Data: Assumed care of pt at 1900. VSS, pain 6-7/10 in right hip/lower back, baseline pain. 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 Had LHC today, 2 vessel dz found w/ no interventions,RRA site CDI w/ tegaderm. Action: Meds given per NOV, assessment completed. MRSA swab completed, urine sample obtained. Response: Pt sitting in recliner at bedside. Plan for SAVR and CABG . WCTM. Zoe Ross RN 05/20/2019 22:17 Problem: Daily Care Plan Goals Goal: Care Plan Documentation Outcome: Met This Shift * Plan of Care - Liset Ridley RN - 05/20/2019 1523 EDT Problem: Daily Care Plan Goals Goal: Care Plan Documentation Outcome: Met This Shift Flowsheets (Taken 05/20/2019 0824) Area of Focus: Circulatory Status Goal This Shift: VSS Data: patient underwent LHC this shift, RRA, TR Band CDI, patient has no complaints of pain. Found 2 vessel disease during cath. Blood pressure 121/68, pulse 70, temperature 36.5 ??C (97.7 ??F), temperature source Tympanic, resp. rate 20, height 167.6 cm (66), weight 76.2 kg (168 lb), SpO2 96 %. Action: Medications administered per NOV, assessments as documented. Response: Patient understands plan for valve replacement and cabg 1st case . LISET RIDLEY RN 05/20/2019 15:23 * Plan of Care - Zoe Ross RN - 05/19/2019 8929 EDT Problem: Daily Care Plan Goals Goal: Care Plan Documentation Outcome: Met This Shift BP 136/78 (BP Cuff Location: Left arm, Patient Position: Sitting) Pulse 70 Temp 37 ??C (98.6 ??F) (Tympanic) Resp 16 Ht 167.6 cm (66) Wt 76.2 kg (168 lb) SpO2 97% BMI 27.12 kg/m?? Data: Assumed care of pt at 1900. VSS, pain 0/10. Pt admitted w/ orthopnea x 1mo, found to have AVRand MV dz. Lasix given earlier today for O2 sats mid 80s w/ lying flat. O2 sat WNL this shift. Action: Meds given per NOV. Assessment completed. Response: Pt asleep on couch in room. Plan for LHC w/ GA lydia, 1st case SAVR Thurs. WCTM. Zoe Ross RN 05/19/2019 21:30 * Plan of Care - Nora Pringle - 05/19/2019 1401 EDT Data: Assumed care at 0700, pt is A+Ox3, independent out of bed, NSR on tele HR 70s, SBP 130s, denies chest pain and dizziness, endorses SOB when reclining. When pt is laying in supine position, [id number] from 96% to 84%, pt endorses SOB and states that he feels like there's something heavy preventing his lungs from expanding. SpO2 recovers back to mid 90s upon sitting back up and pt is able to walk around the unit several times without getting SOB. Action: Medicated pt per NOV and educated on fall precautions and plan of care, discussed importance of monitoring intake and output Response: Pt is resting in recliner with call lowe in reach after going for another walk. Nora Pringle RN 05/19/2019 14:01 * Plan of Care - Chester Cristina RN - 05/19/2019 0141 EDT D: Assumed care of pt at 1900. On tele NSR with HR in the 60's. VSS. A: Administered medications per NOV. Clustered care to promote rest. R: NPO for possible LHC today. Pt sleeping comfortably. Daughter at bedside. Call light in reach. * Plan of Care - Jonh Ziegler RN - 05/18/2019 1438 EDT D: Assumed care of this pt at 0700. 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 Plan for 1st case AVR on 05/22/19. To have [facility] prior to AVR. VSS. On tele, SR. A&Ox3, able to verbalize needs. C/o chronic low back pain, rtn tylenol given. Daughter at bedside and involved with care. A: Updated pt and family. Assist as needed. R: Pt oob ad daysi. Presently laying in bed, eyes closed. Call light in reach. dtr in room. * Plan of Care - Chester Cristina RN - 05/18/2019 0410 EDT D: Assumed care of pt at 1900. Pt is A&Ox 3 ambulating independently. On tele SR with HR in the60's. VSS. Pt denies complaints this shift. A: Administered medications per MAR. Monitored tele. Clustered care to promote rest. R: Pt sleeping comfortably. Call light in reach. * Plan of Care - Christina Schwartz RN - 05/17/2019 1634 EDT Data: Assumed care of pt @ 0700. Pt admitted for SOB r/t aortic regurg. Pt tentatively scheduled for 1st case SAVR on 05/22/[address] surg note. Pt able to lie flat for CT chest. Pt a/o x 3 and VSS except pt has some bursts of SVT to the 150's and PACs on tele. Pt ambulating independently with daughter around unit denies CP. Pt c/o 7/10 lower back pain. Action: Scheduled tylenol given for pain. Encouraged ambulation. Response: pt denies pain. Plan is for [facility] Sunday for SAVR workup. Will CTM tele and VS. Christina Schwartz RN 05/17/2019 16:35 Problem: Daily Care Plan Goals Goal: Care Plan Documentation Outcome: Met This Shift Problem: High Fall Risk: Goal: Patient will Remain Free of Falls due to Med. Side Effects Outcome: Met This Shift Problem: High Fall Risk: Goal: Patient Will Remain Free from Fall-Related Injury Outcome: Met This Shift Problem: Sensory: Goal: Ability to compensate for vision loss will be supported Outcome: Met This Shift * Plan of Care - Chester Cristina RN - 05/17/2019 0422 EDT D: Assumed care of pt at 1900. Pt is A&Ox 3 ambulating independently. On tele NSR with HR in the 60's. VSS. A: Administered medications per MAR. Monitored tele. Clustered care to promote rest. R: Pt sleeping comfortably. Awaiting further w/u for AVR. Call light in reach. * Plan of Care - Regina Byrd RN - 05/16/2019 7157 EDT Data: Patient with increased shortness of breath here for TAVR vs. AVR workup. VSS on room air. Denies shortness of breath while sitting upright. Burst of SVT noted around 1100 for about 10 seconds. Otherwise NSR with sinus pauses. Patient unable to complete coronary CT scan because he could not lay down without significant shortness of breath. Very faint crackles auscultated in lungs. A&Ox4,independent in room. Action: Education provided about medications, aortic regurgitation, and hospital admission. Patientambulated down [place] with . Tylenol, repositioning, and ice packs for low back pain ranging from0-5/10. Response: Tolerated ambulation fairly well this morning. Pain currently tolerable per patient. Denying shortness of breath. Plan for [facility] on Sunday. REGINA BYRD RN 05/16/2019 18:27 Problem: Daily Care Plan Goals Goal: Care Plan Documentation Outcome: Met This Shift Problem: High Fall Risk: Goal: Patient will Remain Free of Falls due to Med. Side Effects Outcome: Met This Shift Problem: High Fall Risk: Goal: Patient Will Remain Free from Fall-Related Injury Outcome: Met This Shift Problem: Sensory: Goal: Ability to compensate for vision loss will be supported Outcome: Met This Shift * Plan of Care - Kyrie Smith RN - 05/16/2019 0541 EDT Data: Assumed care of pt at 1900. Pt NSR on tele. No complaints of chest pain or SOB at rest. On room air. Received 20mg IV lasix during the day with good response. Action: Assessment as documented. Clustered care to promote sleep. Response: Able to make needs known. Plan for CT surg consult KYRIE SMITH RN 05/16/2019 5:41 * Plan of Care - Jamari Cheung RN - 05/15/2019 1506 EDT Data: Patient went for [facility]AS today and L spine xray. Patient has been NSR with occasional sinus arrest. Had one run of 7 beat of vtach this afternoon. Daughter Aydee is at bedside. Patient independent in room. Action: Vitals stable after run of vtach. Patient asymptomatic. Made Dr. Treviño aware. Response: Patient feeling fine. Up to shower off tele this afternoon. Call light within reach. Willcontinue to monitor. JAMARI CHEUNG RN 05/15/2019 15:06 * Plan of Care - Kyrie Smith RN - 05/15/2019 0254 EDT DATA: Assumed care of pt at 1900. Pt admitted for severe aortic regurg from OP cardiology appointment. Denies chest pain or SOB at rest, able to reproduce SOB with activity such as walking long distances or stairs. Action: Clustered care to promote sleep. Assessment as documented Response: No complaints. NPO for [facility] KYRIE SMITH RN 05/15/2019 2:54 * Plan of Care - Alea Kim RN - 05/14/2019 1901 EDT D: Patient arrived to [place] [id number]. Vital signs noted, and tele applied. Patient in NSR with heart rate in 80's. Patient denies chest pain, SOB, and discomfort. A; Assessment as documented in flow sheet. Admission database completed. Patient orientated to room, equipment, and care plan. R: Continue to monitor and document per protocol. documented in this encounter Plan of Treatment Upcoming Encounters Date Type Department Care Team (Latest Contact Info) Description 05/13/2024 9:15 EDT Ancillary Procedure [facility] - [address] [place], [place] [id number] History of aortic valve replacement; Elevated blood pressure reading 05/13/2024 11:00 EDT Office Visit [facility] [address] [place], [place] [id number] Jose Stauffer MD [address] [facility] [address] [place] [address] Pending Results Name Type Priority Associated Diagnoses Date /Time PREPARE RED BLOOD CELLS Blood Bank Routine 0 05/20/2019 14:35 EDT PREPARE RED BLOOD CELLS Blood Bank Routine 0 05/20/2019 14:35 EDT POCT US CARDIAC Imaging Routine 14:05 EDT Scheduled Orders Name Type Priority Associated Diagnoses Orde r Schedule PREPARE RED BLOOD CELLS Blood Bank Routine One Time for 1 Occurrences starting 05/20/2019 until 05/20/2019 PREPARE RED BLOOD CELLS Blood Bank Routine One Time for 1 Occurrences starting 05/20/2019 until 05/20/2019 Scheduled Referrals Name Type Priority Associated Diagnoses Order Schedule PROVIDER FOLLOW-UP INSTRUCTIONS Outpatient Referral Routine Ordered: 05/26/2019 PROVIDER FOLLOW-UP INSTRUCTIONS Outpatient Referral Routine Ordered: 05/26/2019 PROVIDER FOLLOW-UP INSTRUCTIONS Outpatient Referral Routine Ordered: 05/26/2019 AMB CONS/FOLLOW UP PRIMARY CARE PHYSICIAN Outpatient Referral Routine Aortic valve insufficiency, etiology of cardiac valve disease unspecified Coronary artery disease involving [place] heart without angina pectoris, unspecified vessel or lesion type Ordered: 05/26/2019 AMB CONS/FOLLOW UP CARDIOLOGY Outpatient Referral Routine Coronary artery disease involving [place] heart without angina pectoris, unspecified vessel or lesion type Aortic valve insufficiency, etiology of cardiac valve disease unspecified Ordered: 05/26/2019 AMB CONS/FOLLOW UP CARDIAC REHABILITATION Outpatient Referral Routine Aortic valve insufficiency, etiology of cardiac valve disease unspecified Coronary artery disease involving [place] heart without angina pectoris, unspecified vessel or lesion type Ordered: 05/26/2019 PROVIDER FOLLOW-UP INSTRUCTIONS Outpatient Referral Routine Ordered: 05/26/2019 AMB CONS/FOLLOW UP ADULT INFECTIOUS DISEASE Outpatient Referral Routine Coronary artery disease involving [place] heart without angina pectoris, unspecified vessel or lesion type Ordered: 05/26/2019 documented as of this encounter Procedures Procedure Name Priority Date/Time Associated Diagnosis Comments CHEST PA AND LATERAL Routine 07/07/2019 10:56 EDT Aortic valve insufficiency, etiology of cardiac valve disease unspecified Coronary artery disease involving [place] heart without angina pectoris, unspecified vessel or lesion type ECG REPORT - SCANNED 06/25/2019 15:55 EDT ECG REPORT - SCANNED 06/19/2019 10:02 EDT ECG REPORT - SCANNED 06/06/2019 13:14 EDT ECG REPORT - SCANNED 05/28/2019 8:18 EDT ECG REPORT - SCANNED 05/28/2019 8:18 EDT ECG REPORT - SCANNED 05/27/2019 17:21 EDT GLUCOSE, GLUCOMETER Routine 05/26/2019 1 1:55 EDT GLUCOSE, GLUCOMETER Routine 05/26/2019 7 :43 EDT COMPLETE BLOOD COUNT Routine 05/26/2019 7:20 EDT BUN Routine 05/26/2019 7:20 EDT CREATININE Routine 05/26/2019 7:20 EDT ELECTROLYTES Routine 05/26/2019 7:20 EDT GLUCOSE, GLUCOMETER Routine 05/25/2019 2 1:37 EDT GLUCOSE, GLUCOMETER Routine 05/25/2019 1 9:30 EDT GLUCOSE, GLUCOMETER Routine 05/25/2019 1 3:05 EDT CHEST PA AND LATERAL Routine 05/25/2019 9:46 EDT COMPLETE BLOOD COUNT Routine 05/25/2019 9:39 EDT BUN Routine 05/25/2019 9:39 EDT CREATININE Routine 05/25/2019 9:39 EDT ELECTROLYTES Routine 05/25/2019 9:39 EDT GLUCOSE, GLUCOMETER Routine 05/25/2019 7 :42 EDT EKG 12-LEAD Routine 05/25/2019 6:41 EDT GLUCOSE, GLUCOMETER Routine 05/25/2019 6 :15 EDT GLUCOSE, GLUCOMETER Routine 05/25/2019 0 :31 EDT GLUCOSE, GLUCOMETER Routine 05/24/2019 1 7:46 EDT GLUCOSE, GLUCOMETER Routine 05/24/2019 1 2:32 EDT GLUCOSE, GLUCOMETER Routine 05/24/2019 7 :34 EDT GLUCOSE, GLUCOMETER Routine 05/24/2019 4 :16 EDT COMPLETE BLOOD COUNT Routine 05/24/2019 4:15 EDT BUN Routine 05/24/2019 4:15 EDT CREATININE Routine 05/24/2019 4:15 EDT ELECTROLYTES Routine 05/24/2019 4:15 EDT GLUCOSE, GLUCOMETER Routine 05/23/2019 1 8:30 EDT GLUCOSE, GLUCOMETER Routine 05/23/2019 1 1:58 EDT GLUCOSE, GLUCOMETER Routine 05/23/2019 9 :16 EDT PORTABLE CHEST 1 VIEW Routine 05/23/2019 6:33 EDT EKG 12-LEAD Routine 05/23/2019 5:12 EDT GLUCOSE, GLUCOMETER Routine 05/23/2019 4 :16 EDT COMPLETE BLOOD COUNT Routine 05/23/2019 4:15 EDT BUN Routine 05/23/2019 4:15 EDT CREATININE Routine 05/23/2019 4:15 EDT ELECTROLYTES Routine 05/23/2019 4:15 EDT EKG 12-LEAD STAT 05/22/2019 22:33 EDT CALCIUM, IONIZED Routine 05/22/2019 21:3 8 EDT POTASSIUM Routine 05/22/2019 21:38 EDT PHOSPHORUS Routine 05/22/2019 21:38 EDT MAGNESIUM Routine 05/22/2019 21:38 EDT GLUCOSE, GLUCOMETER Routine 05/22/2019 1 9:39 EDT COMPLETE BLOOD COUNT Routine 05/22/2019 19:34 EDT POTASSIUM Routine 05/22/2019 19:34 EDT EXTUBATION Routine 05/22/2019 18:35 EDT RESPIRATORY CARE EVALUATION ONLY Routine 05/22/2019 18:34 EDT SURGICAL PATHOLOGY Routine 05/22/2019 17 :48 EDT ECG REPORT - SCANNED 05/22/2019 16:13 EDT GLUCOSE, GLUCOMETER Routine 05/22/2019 1 5:46 EDT ZZBLOOD GAS, G3 ISTAT Routine 05/22/2019 14:07 EDT PORTABLE CHEST PA CENTRAL LINE/PICC/ET TUBE,INITIAL INSERTION STAT 05/22/2019 13:49 EDT EKG 12-LEAD Routine 05/22/2019 13:49 EDT MRSA PCR Routine 05/22/2019 13:45 EDT CALCIUM, IONIZED Routine 05/22/2019 13:3 9 EDT COMPLETE BLOOD COUNT Routine 05/22/2019 13:35 EDT POTASSIUM Routine 05/22/2019 13:35 EDT GLUCOSE, GLUCOMETER Routine 05/22/2019 1 3:34 EDT ACT, KAOLIN ISTAT Routine 05/22/2019 12: 33 EDT BLOOD GAS, CG8 ISTAT Routine 05/22/2019 12:31 EDT BLOOD GAS, CG8 ISTAT Routine 05/22/2019 11:49 EDT ACT, KAOLIN ISTAT Routine 05/22/2019 11: 49 EDT BLOOD GAS, CG8 ISTAT Routine 05/22/2019 11:16 EDT INPATIENT ADD-ON Routine 05/22/2019 11:0 5 EDT ACT, KAOLIN ISTAT Routine 05/22/2019 10: 58 EDT BLOOD GAS, CG8 ISTAT Routine 05/22/2019 10:47 EDT BLOOD GAS, CG8 ISTAT Routine 05/22/2019 10:26 EDT ACT, KAOLIN ISTAT Routine 05/22/2019 10: 26 EDT BLOOD GAS, CG8 ISTAT Routine 05/22/2019 10:13 EDT ACT, KAOLIN ISTAT Routine 05/22/2019 10: 12 EDT BLOOD GAS, CG8 ISTAT Routine 05/22/2019 9:34 EDT ACT, KAOLIN ISTAT Routine 05/22/2019 9:3 3 EDT ANESTH TRANSESOPHAGEAL ECHO Routine 05/22/2019 6:20 EDT COMPLETE BLOOD COUNT Routine 05/22/2019 5:44 EDT MAGNESIUM Routine 05/22/2019 5:44 EDT HEMOGLOBIN A1C Routine 05/22/2019 5:44 EDT CREATININE Routine 05/22/2019 5:44 EDT ELECTROLYTES Routine 05/22/2019 5:44 EDT COMPLETE BLOOD COUNT Routine 05/21/2019 5:39 EDT MAGNESIUM Routine 05/21/2019 5:39 EDT CREATININE Routine 05/21/2019 5:39 EDT ELECTROLYTES Routine 05/21/2019 5:39 EDT TYPE AND SCREEN Routine 05/21/2019 5:37 EDT MRSA PCR Routine 05/20/2019 21:26 EDT VL VEIN MAPPING BILATERAL Routine 05/20/2019 16:27 EDT LEFT HEART CATH Routine 05/20/2019 15:07 EDT URINE CULTURE IF POSITIVE Routine 05/20/2019 14:35 EDT URINE CHEMICAL (DIP) & SEDIMENT (MICRO) WITHOUT REFLEX TO CULTURE Routine 05/20/2019 14:35 EDT PREPARE RED BLOOD CELLS Routine 05/20/20 19 14:34 EDT PREPARE RED BLOOD CELLS Routine 05/20/20 19 14:34 EDT ECHOCARDIOGRAM LIMITED Routine 9 10:31 EDT INPATIENT ADD-ON Routine 05/20/2019 7:50 EDT ALT Routine 05/20/2019 5:37 EDT AST Routine 05/20/2019 5:37 EDT ALKALINE PHOSPHATASE Routine 05/20/2019 5:37 EDT MAGNESIUM Routine 05/20/2019 5:37 EDT BILIRUBIN, TOTAL Routine 05/20/2019 5:37 EDT INPATIENT ADD-ON Routine 05/19/2019 7:35 EDT HOLD SST Routine 05/19/2019 6:18 EDT HOLD LAVENDER TOP Routine 05/19/2019 6:1 8 EDT COMPLETE BLOOD COUNT Routine 05/19/2019 6:18 EDT MAGNESIUM Routine 05/19/2019 6:18 EDT CREATININE Routine 05/19/2019 6:18 EDT ELECTROLYTES Routine 05/19/2019 6:18 EDT COMPLETE BLOOD COUNT Routine 05/18/2019 5:43 EDT MAGNESIUM Routine 05/18/2019 5:43 EDT CREATININE Routine 05/18/2019 5:43 EDT ELECTROLYTES Routine 05/18/2019 5:[address] CHEST WO CONTRAST Routine 05/17/2019 10:52 EDT COMPLETE BLOOD COUNT Routine 05/17/2019 6:33 EDT MAGNESIUM Routine 05/17/2019 6:33 EDT CREATININE Routine 05/17/2019 6:33 EDT ELECTROLYTES Routine 05/17/2019 6:33 EDT T CELL SUBSETS Routine 05/16/2019 6:18 EDT SYPHILIS SEROLOGY Routine 05/16/2019 6:1 8 EDT HIV 1 RNA QUANTITATION Routine 9 6:18 EDT COMPLETE BLOOD COUNT AND DIFFERENTIAL Routine 05/16/2019 6:18 EDT MAGNESIUM Routine 05/16/2019 6:18 EDT CREATININE Routine 05/16/2019 6:18 EDT ELECTROLYTES Routine 05/16/2019 6:18 EDT SI JOINTS 3 OR MORE VIEWS Routine 05/15/2019 13:29 EDT TRANSESOPHAGEAL ECHO (DU[facility]AS) Routine 05/15/2019 10:18 EDT INPATIENT ADD-ON Routine 05/15/2019 6:50 EDT COMPLETE BLOOD COUNT Routine 05/15/2019 5:32 EDT MAGNESIUM Routine 05/15/2019 5:32 EDT CREATININE Routine 05/15/2019 5:32 EDT ELECTROLYTES Routine 05/15/2019 5:32 EDT BACTERIAL CULTURE, BLOOD Routine 05/14/2019 15:27 EDT HLA B27 SCREEN, DNA Routine 05/14/2019 1 5:27 EDT COMPLETE BLOOD COUNT Routine 05/14/2019 15:27 EDT C REACTIVE PROTEIN Routine 05/14/2019 15 :27 EDT CREATININE Routine 05/14/2019 15:27 EDT ELECTROLYTES Routine 05/14/2019 15:27 EDT BACTERIAL CULTURE, BLOOD Routine 05/14/2019 15:26 EDT INPATIENT ADD-ON Routine 05/14/2019 13:1 5 EDT CHEST PA AND LATERAL Routine 05/14/2019 13:09 EDT EKG 12-LEAD Routine 05/14/2019 12:27 EDT documented in this encounter Results * CHEST PA AND LATERAL (07/07/2019 10:56 EDT) Anatomical Region Laterality Modality Other 07/07/2019 10:5 6 EDT 07/07/2019 15:09 EDT Narrative 07/07/2019 11:11 EDT Addendum Begins The valve is a Perceval sutureless aortic valve bioprosthesis. Addendum Ends CHEST 2 VIEWS ??07/07/2019 10:56 AM Clinical History/Comments: I35.1-Nonrheumatic aortic (valve) [id number]-HNH-61 I25.10-Atherosclerotic heart disease of [place] coronary artery without angina [id number]-LTD-04; s/p CABG, AVR Comparison: Chest radiograph May 25, 2019.. Technique: Two views of the chest were performed using dual energy technique with bone and soft tissue reconstruction. Findings: Soft tissues: ??Normal. Bones: The patient is status post midline sternotomy and coronary artery bypass graft surgery. Cardiac and mediastinal contours: A transcatheter aortic valve replacement has been performed.. Lungs: There is improvement in areas of bibasilar atelectasis with minimal residual left lower lobe atelectasis seen. ?? Pleura/diaphragms:There is no significant pleural fluid collection noted. Impression: 1. ??Postoperative radiograph with improved lung volumes and resolving areas of bibasilar atelectasis. Procedure Note Victorino Brennan MD - 07/07/2019 Addendum Begins The valve is a Perceval sutureless aortic valve bioprosthesis. Addendum Ends CHEST 2 VIEWS 07/07/2019 10:56 AM Clinical History/Comments: I35.1-Nonrheumatic aortic (valve) iyjqluqsmlpmv-AKG-28 I25.10-Atherosclerotic heart disease of [place] coronary artery without angina ohnztbvw-CDR-20; s/p CABG, AVR Comparison: Chest radiograph May 25, 2019.. Technique: Two views of the chest were performed using dual energy technique with bone and soft tissue reconstruction. Findings: Soft tissues: Normal. Bones: The patient is status post midline sternotomy and coronary artery bypass graft surgery. Cardiac and mediastinal contours: A transcatheter aortic valve replacement has been performed.. Lungs: There is improvement in areas of bibasilar atelectasis with minimal residual left lower lobe atelectasis seen. Pleura/diaphragms:There is no significant pleural fluid collection noted. Impression: 1. Postoperative radiograph with improved lung volumes and resolving areas of bibasilar atelectasis. Jackie Dallas PA-C IMG DIAGNOSTIC IMAGI NG ORDERABLES * ECG REPORT - SCANNED (06/25/2019 15:55 EDT) 06/25/2019 15:5 5 EDT Scan 2 Job Development Specialist PROCEDURE/MINOR ZOË GICAL ORDERABLES * ECG REPORT - SCANNED (06/19/2019 10:02 EDT) 06/19/2019 10:0 2 EDT Scan 2 Job Development Specialist PROCEDURE/MINOR ZOË GICAL ORDERABLES * ECG REPORT - SCANNED (06/06/2019 13:14 EDT) 06/06/2019 13:1 4 EDT Scan 2 Job Development Specialist PROCEDURE/MINOR ZOË GICAL ORDERABLES * ECG REPORT - SCANNED (05/28/2019 8:18 EDT) 05/28/2019 8:18 EDT Scan 2 Job Development Specialist PROCEDURE/MINOR ZOË GICAL ORDERABLES * ECG REPORT - SCANNED (05/28/2019 8:18 EDT) 05/28/2019 8:18 EDT Scan 2 Job Development Specialist PROCEDURE/MINOR ZOË GICAL ORDERABLES * ECG REPORT - SCANNED (05/27/2019 17:21 EDT) 05/27/2019 17:2 1 EDT Scan 2 Job Development Specialist PROCEDURE/MINOR ZOË GICAL ORDERABLES * (ABNORMAL) GLUCOSE, GLUCOMETER (05/26/2019 11:55 EDT) Glucose, Fingerstick 112(H) 70 - 100 mg/dl 05/26/2019 11:57 EDT [facility] Line Up Worker ID [id number] 05/26/2019 11:57 EDT [facility] Comment:[facility] BLOOD SPECIMEN / Unknown 05/26/2019 11:55 EDT 05/26/2019 11:57 EDT Hamlet Barajas MD CHEMISTRY & BLOOD GAS ORDERABLES [facility] [address] [place] [address] * (ABNORMAL) GLUCOSE, GLUCOMETER (05/26/2019 7:43 EDT) Glucose, Fingerstick 119(H) 70 - 100 mg/dl 05/26/2019 7:48 EDT [facility] Line Up Worker ID [id number] 05/26/2019 7:48 T [facility] Comment:Test Performed by [facility] Services BLOOD SPECIMEN / Unknown 05/26/2019 7:43 EDT 05/26/2019 7:48 EDT Hamlet Barajas MD CHEMISTRY & BLOOD GAS ORDERABLES [facility] [address] [place] [address] * (ABNORMAL) COMPLETE BLOOD COUNT (05/26/2019 7:20 EDT) WBC 8.03 4.0 - 10.4 K/cmm 05/26/2019 8:21 [facility] RBC 3.75(L) 4.36 - 5.78 M/cmm 05/26/2019 8:21 [facility] Hemoglobin 11.8(L) 13.8 - 17.3 gm/dl 05/26/2019 8:21 [facility] HCT 34.9(L) 39.5 - 50.2 % 05/26/2019 8:21 [facility] MCV 93 81 - 95 fl 05/26/2019 8:21 [facility] MCH 31.5 27.6 - 33.0 pg 05/26/2019 8:21 [facility] MCHC 33.8 32.8 - 36.4 gm/dl 05/26/2019 8:21 [facility] RDW-CV 14.9(H) <14.2 % 05/26/2019 8:21 [facility] RDW-SD 50.2(H) <46.0 fl 05/26/2019 8:21 [facility] PLT 188 141 - 377 K/cmm 05/26/2019 8:21 EDT [facility] MPV 11.5 9.5 - 12.7 fl 05/26/2019 8:21 EDT [facility] Blood specimen (specimen) BLOOD SPECIMEN / Unknown 05/26/2019 7:20 EDT 05/26/2019 8:14 EDT Nolan Moctezuma MD HEMATOLOGY & PF4 OR DERABLES Performing Organization Address City/[facility] Co de Phone Number [facility] [address] [place] [address] * CREATININE (05/26/2019 7:20 EDT) Creatinine 0.83 0.66 - 1.25 mg/dl 05/26/2019 9:07 EDT [facility] GFR, Calculated 90 >60 ml/min/1.7 3m2 05/26/2019 9:07 EDT [facility] Comment: eGFR calculated using CKD-EPI equation for non Americans. Multiply eGFR by 1.16 for Americans. Blood specimen (specimen) BLOOD SPECIMEN / Unknown 05/26/2019 7:20 EDT 05/26/2019 8:14 EDT Nolan Moctezuma MD CHEMISTRY & BLOOD G ORDERABLES Performing Organization Address [facility] Co de Phone Number [facility] [address] [place] [address] * BUN (05/26/2019 7:20 EDT) BUN 19 10 - 26 mg/dl 05/26/2019 9:07 EDT [facility] Blood specimen (specimen) BLOOD SPECIMEN / Unknown 05/26/2019 7:20 EDT 05/26/2019 8:14 EDT Nolan Moctezuma MD CHEMISTRY & BLOOD G ORDERABLES Performing Organization Address [facility] Co de Phone Number [facility] [address] [place] [address] * ELECTROLYTES (05/26/2019 7:20 EDT) Sodium 136 136 - 145 mEq/L 05/26/2019 9:07 EDT [facility] Potassium 4.0 3.5 - 5.0 mEq/L 05/26/2019 9:07 EDT [facility] Chloride 96 96 - 110 mEq/L 05/26/2019 9:07 EDT [facility] CO2 32 22 - 32 mEq/L 05/26/2019 9:07 EDT [facility] Blood specimen (specimen) BLOOD SPECIMEN / Unknown 05/26/2019 7:20 EDT 05/26/2019 8:14 EDT Nolan Moctezuma MD CHEMISTRY & BLOOD G ORDERABLES Performing Organization Address [facility] Co de Phone Number [facility] [address] [place] [address] * (ABNORMAL) GLUCOSE, GLUCOMETER (05/25/2019 21:37 EDT) Glucose, Fingerstick 201(H) 70 - 100 mg/dl 05/25/2019 21:42 EDT [facility] Line Up Worker ID [id number] 05/25/2019 21:42 EDT [facility] Comment:Test Performed by [facility] BLOOD SPECIMEN / Unknown 05/25/2019 21:37 EDT 05/25/2019 21:42 EDT Hamlet Barajas MD CHEMISTRY & BLOOD GAS ORDERABLES [facility] [address] [place] [address] * (ABNORMAL) GLUCOSE, GLUCOMETER (05/25/2019 19:30 EDT) Glucose, Fingerstick 103(H) 70 - 100 mg/dl 05/25/2019 19:35 EDT [facility] Line Up Worker ID [id number] 05/25/2019 19:35 EDT [facility] Comment:Test Performed by [facility] BLOOD SPECIMEN / Unknown 05/25/2019 19:30 EDT 05/25/2019 19:35 EDT Hamlet Barajas MD CHEMISTRY & BLOOD GAS ORDERABLES Performing Organization Address City/[facility]/ZIP Co de Phone Number [facility] [address] [place] [address] * (ABNORMAL) GLUCOSE, GLUCOMETER (05/25/2019 13:05 EDT) Glucose, Fingerstick 103(H) 70 - 100 mg/dl 05/25/2019 13:06 EDT [facility] Line Up Worker ID [id number] 05/25/2019 13:06 EDT [facility] Comment:Test Performed by [facility] BLOOD SPECIMEN / Unknown 05/25/2019 13:05 EDT 05/25/2019 13:06 EDT Hamlet Barajas MD CHEMISTRY & BLOOD GAS ORDERABLES Performing Organization Address [facility] Co de Phone Number [facility] [address] [place] [address] * CHEST PA AND LATERAL (05/25/2019 9:46 EDT) Anatomical Region Laterality Modality Other 05/25/2019 9:46 EDT 05/25/2019 11:18 EDT Narrative 05/25/2019 11:18 EDT CHEST 2 VIEWS ??05/25/2019 9:46 AM Clinical History/Comments: Acute diastolic (congestive) heart failure ??Look for infiltrates, atelectasis, pleural effusions, and pneumothorax Comparison: 05/23/2019. Technique: Frontal and lateral views of the chest were performed. Findings: Soft tissues: ??No acute abnormalities. Bones: Stable. Cardiac and mediastinal contours:Stable. Lungs: Lung volumes are low and bibasilar atelectasis is present. ?? Pleura/diaphragms:Bilateral pleural effusions are noted; left greater than right. No pneumothorax. Impression: 1. ??Bibasilar atelectasis and bilateral pleural effusions. Procedure Note Mary Hernandez MD, - 05/25/2019 CHEST 2 VIEWS 05/25/2019 9:46 AM Clinical History/Comments: Acute diastolic (congestive) heart failure Look for infiltrates, atelectasis, pleural effusions, and pneumothorax Comparison: 05/23/2019. Technique: Frontal and lateral views of the chest were performed. Findings: Soft tissues: No acute abnormalities. Bones: Stable. Cardiac and mediastinal contours:Stable. Lungs: Lung volumes are low and bibasilar atelectasis is present. Pleura/diaphragms:Bilateral pleural effusions are noted; left greater than right. No pneumothorax. Impression: 1. Bibasilar atelectasis and bilateral pleural effusions. Paz Gordon MD IMG DIAGNOSTIC IMAGI NG ORDERABLES * (ABNORMAL) COMPLETE BLOOD COUNT (05/25/2019 9:39 EDT) WBC 7.77 4.0 - 10.4 K/cmm 05/25/2019 9:57 [facility] RBC 3.70(L) 4.36 - 5.78 M/cmm 05/25/2019 9:57 [facility] Hemoglobin 11.7(L) 13.8 - 17.3 gm/dl 05/25/2019 9:57 [facility] HCT 33.9(L) 39.5 - 50.2 % 05/25/2019 9:57 [facility] MCV 92 81 - 95 fl 05/25/2019 9:57 [facility] MCH 31.6 27.6 - 33.0 pg 05/25/2019 9:57 [facility] MCHC 34.5 32.8 - 36.4 gm/dl 05/25/2019 9:57 [facility] RDW-CV 14.7(H) <14.2 % 05/25/2019 9:57 [facility] RDW-SD 49.5(H) <46.0 fl 05/25/2019 9:57 [facility] PLT 144 141 - 377 K/cmm 05/25/2019 9:57 [facility] MPV 11.1 9.5 - 12.7 fl 05/25/2019 9:57 [facility] Blood specimen (specimen) BLOOD SPECIMEN / Unknown 05/25/2019 9:39 EDT 05/25/2019 9:43 EDT Nolan Moctezuma MD HEMATOLOGY & PF4 OR DERABLES Performing Organization Address [facility] Co de Phone Number [facility] [address] [place] [address] * CREATININE (05/25/2019 9:39 EDT) Creatinine 0.80 0.66 - 1.25 mg/dl 05/25/2019 11:31 EDT [facility] GFR, Calculated 92 >60 ml/min/1.7 3m2 05/25/2019 11:31 EDT [facility] Comment: eGFR calculated using CKD-EPI equation for non Americans. Multiply eGFR by 1.16 for Americans. Blood specimen (specimen) BLOOD SPECIMEN / Unknown 05/25/2019 9:39 EDT 05/25/2019 9:43 EDT Nolan Moctezuma MD CHEMISTRY & BLOOD G ORDERABLES Performing Organization Address [facility] Co de Phone Number [facility] [address] [place] [address] * BUN (05/25/2019 9:39 EDT) BUN 18 10 - 26 mg/dl 05/25/2019 11:31 EDT [facility] Blood specimen (specimen) BLOOD SPECIMEN / Unknown 05/25/2019 9:39 EDT 05/25/2019 9:43 EDT Nolan Moctezuma MD CHEMISTRY & BLOOD G ORDERABLES Performing Organization Address [facility] Co de Phone Number [facility] [address] [place] [address] * (ABNORMAL) ELECTROLYTES (05/25/2019 9:39 EDT) Sodium 133(L) 136 - 145 mEq/L 05/25/2019 11:31 EDT [facility] Potassium 3.6 3.5 - 5.0 mEq/L 05/25/2019 11:31 EDT [facility] Chloride 96 96 - 110 mEq/L 05/25/2019 11:31 EDT [facility] CO2 32 22 - 32 mEq/L 05/25/2019 11:31 EDT [facility] Blood specimen (specimen) BLOOD SPECIMEN / Unknown 05/25/2019 9:39 EDT 05/25/2019 9:43 EDT Nolan Moctezuma MD CHEMISTRY & BLOOD G ORDERABLES Performing Organization Address [facility] Co de Phone Number [facility] [address] [place] [address] * (ABNORMAL) GLUCOSE, GLUCOMETER (05/25/2019 7:42 EDT) Glucose, Fingerstick 134(H) 70 - 100 mg/dl 05/25/2019 7:55 EDT [facility] Line Up Worker ID [id number] 05/25/2019 7:55 EDT [facility] Comment:[facility] BLOOD SPECIMEN / Unknown 05/25/2019 7:42 EDT 05/25/2019 7:55 EDT Hamlet Barajas MD CHEMISTRY & BLOOD GAS ORDERABLES Performing Organization Address [facility] Co de Phone Number [facility] [address] [place] [address] * EKG 12-LEAD (05/25/2019 6:41 EDT) 05/25/2019 6:41 EDT Narrative [facility] EKG - 06/25/2019 15:48 EDT ? [facility] ? Test Date: ?2019-05-25 Pat Name: ? JOSE CHEUNG ? Department: ?? [facility] ? Room: ? [id number] Gender: ? Male ? 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 [id number] : ?1950 ? Requested By: GABO GRIGGS Order Number: [id number] ? Reading MD: ?? LESLYE MARGARET MD ? Measurements Intervals ?[place] ? Rate: ? 88 ? P: ?9 WI: ? 176 ?QRS: ?-6 QRSD: ? 129 ?T: ?147 QT: ? 374 ? QTc: ?453 ? Interpretive Statements SINUS RHYTHM LEFT BUNDLE BRANCH BLOCK Compared to ECG 05/23/2019 05:12:16 Unchanged Edited by KELLY MANRIQUE MD on 05-30-2019 13:06:49 EDT. I reviewed the tracing and have either agreed or edited the findings in this report. Electronically Signed On 06-25-2019 15:48:48 EDT by LESLYE BEVERLY MD. Procedure Note Margaret Padron, Leslye Restrepo Jr., MD - 06/25/2019 [facility] Test Date: 2019-05-25 Pat Name: JOSE CHEUNG Department: [facility] Room: [id number] Gender: Male Make Up Worker: [id number] : 1950 Requested By: GABO GRIGGS Order Number: [id number] Reading MD: LESLYE BEVERLY MD Measurements Intervals [place] Rate: 88 P: 9 WI: 176 QRS: -6 QRSD: 129 T: 147 QT: 374 QTc: 453 Interpretive Statements SINUS RHYTHM LEFT BUNDLE BRANCH BLOCK Compared to ECG 05/23/2019 05:12:16 Unchanged Edited by KELLY MANRIQUE MD on 05-30-2019 13:06:49 EDT. I reviewed the tracing and have either agreed or edited the findings inthis report. Electronically Signed On 06-25-2019 15:48:48 EDT by LESLYE BENEDICT. Nolan Moctezuma MD CARDIAC ECG ORDERAB LES [facility] EKG * (ABNORMAL) GLUCOSE, GLUCOMETER (05/25/2019 6:15 EDT) Glucose, Fingerstick 121(H) 70 - 100 mg/dl 05/25/2019 7:55 EDT [facility] Line Up Worker ID [id number] 05/25/2019 7:55 EDT [facility] Comment:Test Performed by [facility] BLOOD SPECIMEN / Unknown 05/25/2019 6:15 EDT 05/25/2019 7:55 EDT Hamlet Barajas MD CHEMISTRY & BLOOD GAS ORDERABLES Performing Organization Address City/[facility] Co de Phone Number [facility] [address] [place] [address] * (ABNORMAL) GLUCOSE, GLUCOMETER (05/25/2019 0:31 EDT) Glucose, Fingerstick 109(H) 70 - 100 mg/dl 05/25/2019 0:35 EDT [facility] Line Up Worker ID [id number] 05/25/2019 0:35 EDT [facility] Comment:Test Performed by [facility] BLOOD SPECIMEN / Unknown 05/25/2019 0:31 EDT 05/25/2019 0:35 EDT Hamlet Barajas MD CHEMISTRY & BLOOD GAS ORDERABLES Performing Organization Address [facility] Co de Phone Number [facility] [address] [place] [address] * (ABNORMAL) GLUCOSE, GLUCOMETER (05/24/2019 17:46 EDT) Glucose, Fingerstick 115(H) 70 - 100 mg/dl 05/24/2019 17:47 EDT [facility] Line Up Worker ID [id number] 05/24/2019 17:47 EDT [facility] Comment:Test Performed by [facility] BLOOD SPECIMEN / Unknown 05/24/2019 17:46 EDT 05/24/2019 17:47 EDT Hamlet Barajas MD CHEMISTRY & BLOOD GAS ORDERABLES Performing Organization Address City/[facility]/ZIP Co de Phone Number [facility] [address] [place] [address] * (ABNORMAL) GLUCOSE, GLUCOMETER (05/24/2019 12:32 EDT) Glucose, Fingerstick 140(H) 70 - 100 mg/dl 05/24/2019 12:50 EDT [facility] Line Up Worker ID [id number] 05/24/2019 12:50 EDT [facility] Comment:[facility] BLOOD SPECIMEN / Unknown 05/24/2019 12:32 EDT 05/24/2019 12:50 EDT Hamlet Barajas MD CHEMISTRY & BLOOD GAS ORDERABLES Performing Organization Address City/[facility]/ZIP Co de Phone Number [facility] [address] [place] [address] * (ABNORMAL) GLUCOSE, GLUCOMETER (05/24/2019 7:34 EDT) Glucose, Fingerstick 147(H) 70 - 100 mg/dl 05/24/2019 7:35 EDT [facility] Line Up Worker ID [id number] 05/24/2019 7:35 EDT [facility] Comment:[facility] BLOOD SPECIMEN / Unknown 05/24/2019 7:34 EDT 05/24/2019 7:35 EDT Hamlet Barajas MD CHEMISTRY & BLOOD GAS ORDERABLES Performing Organization Address [facility]/ZIP Co de Phone Number [facility] [address] [place] [address] * (ABNORMAL) GLUCOSE, GLUCOMETER (05/24/2019 4:16 EDT) Glucose, Fingerstick 132(H) 70 - 100 mg/dl 05/24/2019 4:20 EDT [facility] Line Up Worker ID [id number] 05/24/2019 4:20 EDT [facility] Comment:[facility] BLOOD SPECIMEN / Unknown 05/24/2019 4:16 EDT 05/24/2019 4:20 EDT Hamlet Barajas MD CHEMISTRY & BLOOD GAS ORDERABLES Performing Organization Address City/[facility]/ZIP Co de Phone Number [facility] [address] [place] [address] * (ABNORMAL) COMPLETE BLOOD COUNT (05/24/2019 4:15 EDT) WBC 11.18(H) 4.0 - 10.4 K/cmm 05/24/2019 4:30 T [facility] RBC 3.79(L) 4.36 - 5.78 M/cmm 05/24/2019 4:30 [facility] Hemoglobin 12.1(L) 13.8 - 17.3 gm/dl 05/24/2019 4:30 [facility] HCT 34.1(L) 39.5 - 50.2 % 05/24/2019 4:30 [facility] MCV 90 81 - 95 fl 05/24/2019 4:30 [facility] MCH 31.9 27.6 - 33.0 pg 05/24/2019 4:30 [facility] MCHC 35.5 32.8 - 36.4 gm/dl 05/24/2019 4:30 [facility] RDW-CV 15.1(H) <14.2 % 05/24/2019 4:30 [facility] RDW-SD 49.4(H) <46.0 fl 05/24/2019 4:30 [facility] PLT 144 141 - 377 K/cmm 05/24/2019 4:30 [facility] MPV 11.0 9.5 - 12.7 fl 05/24/2019 4:30 [facility] Blood specimen (specimen) BLOOD SPECIMEN / Unknown 05/24/2019 4:15 EDT 05/24/2019 4:23 EDT Nolan Moctezuma MD HEMATOLOGY & PF4 OR DERABLES [facility] [address] [place] [address] * (ABNORMAL) ELECTROLYTES (05/24/2019 4:15 EDT) Sodium 131(L) 136 - 145 mEq/L 05/24/2019 4:45 EDT [facility] Potassium 4.6 3.5 - 5.0 mEq/L 05/24/2019 4:45 T [facility] Chloride 98 96 - 110 mEq/L 05/24/2019 4:45 EDT [facility] CO2 29 22 - 32 mEq/L 05/24/2019 4:45 EDT [facility] Blood specimen (specimen) BLOOD SPECIMEN / Unknown 05/24/2019 4:15 EDT 05/24/2019 4:23 EDT Nolan Moctezuma MD CHEMISTRY & BLOOD G ORDERABLES Performing Organization Address City/[facility] Co de Phone Number [facility] [address] [place] [address] * CREATININE (05/24/2019 4:15 EDT) Creatinine 0.84 0.66 - 1.25 mg/dl 05/24/2019 4:45 EDT [facility] GFR, Calculated 90 >60 ml/min/1.7 3m2 05/24/2019 4:45 EDT [facility] Comment: eGFR calculated using CKD-EPI equation for non Americans. Multiply eGFR by 1.16 for Americans. Blood specimen (specimen) BLOOD SPECIMEN / Unknown 05/24/2019 4:15 EDT 05/24/2019 4:23 EDT Nolan Moctezuma MD CHEMISTRY & BLOOD G ORDERABLES Performing Organization Address [facility] Co de Phone Number [facility] [address] [place] [address] * BUN (05/24/2019 4:15 EDT) BUN 18 10 - 26 mg/dl 05/24/2019 4:45 EDT [facility] Blood specimen (specimen) BLOOD SPECIMEN / Unknown 05/24/2019 4:15 EDT 05/24/2019 4:23 EDT Nolan Moctezuma MD CHEMISTRY & BLOOD G ORDERABLES Performing Organization Address [facility] Co de Phone Number [facility] [address] [place] [address] * (ABNORMAL) GLUCOSE, GLUCOMETER (05/23/2019 18:30 EDT) Glucose, Fingerstick 135(H) 70 - 100 mg/dl 05/23/2019 18:34 EDT [facility] Line Up Worker ID [id number] 05/23/2019 18:34 EDT [facility] Comment:Test Performed by [facility] BLOOD SPECIMEN / Unknown 05/23/2019 18:30 EDT 05/23/2019 18:34 EDT Hamlet Barajas MD CHEMISTRY & BLOOD GAS ORDERABLES Performing Organization Address [facility] Co de Phone Number [facility] [address] [place] [address] * (ABNORMAL) GLUCOSE, GLUCOMETER (05/23/2019 11:58 EDT) Glucose, Fingerstick 155(H) 70 - 100 mg/dl 05/24/2019 0:32 EDT [facility] Line Up Worker ID [id number] 05/24/2019 0:32 EDT [facility] Comment:Test Performed by [facility] BLOOD SPECIMEN / Unknown 05/23/2019 11:58 EDT 05/24/2019 0:32 EDT Hamlet Barajas MD CHEMISTRY & BLOOD GAS ORDERABLES Performing Organization Address [facility] Co de Phone Number [facility] [address] [place] [id number] * (ABNORMAL) GLUCOSE, GLUCOMETER (05/23/2019 9:16 EDT) Glucose, Fingerstick 147(H) 70 - 100 mg/dl 05/23/2019 9:21 EDT [facility] Line Up Worker ID [id number] 05/23/2019 9:21 EDT [facility] Comment:Test Performed by [facility] BLOOD SPECIMEN / Unknown 05/23/2019 9:16 EDT 05/23/2019 9:21 EDT Hamlet Barajas MD CHEMISTRY & BLOOD GAS ORDERABLES [facility] [address] [place] [address] * PORTABLE CHEST 1 VIEW (05/23/2019 6:33 EDT) Anatomical Region Laterality Modality Other 05/23/2019 6:33 EDT 05/23/2019 8:46 EDT Narrative 05/23/2019 8:46 EDT PORTABLE CHEST 1 VIEW ??05/23/2019 6:33 AM Clinical History/Comments: chest pain, shortness of breath Comparison: 16 hours prior. Findings: Single portable AP view of the chest. Lines/tubes: ??Right internal jugular catheter remains in stable position. Mediastinal drains remain. The gastric sump tube and endotracheal tube have been removed. Soft tissues and bones: Sternotomy wires are aligned and intact. The stomach is distended. Cardiac and mediastinal contours: Prior CABG and aortic valve replacement. Cardiac and mediastinal contours are stable in size. There is a small amount of pneumomediastinum and pericardial air expected after cardiac surgery. Lungs: Right and left lower lobe atelectasis is stable. The lungs otherwise are clear. Pleura: No visible abnormality, although none can be excluded on this nonupright film Impression: 1. ??Stable regions of right and left lower lobe atelectasis. I have personally reviewed the images and the above interpretation and agree with the findings. Procedure Note Yobani Gonzalez MD, MD - 05/23/2019 PORTABLE CHEST 1 VIEW 05/23/2019 6:33 AM Clinical History/Comments: chest pain, shortness of breath Comparison: 16 hours prior. Findings: Single portable AP view of the chest. Lines/tubes: Right internal jugular catheter remains in stable position. Mediastinal drains remain. The gastric sump tube and endotracheal tube have been removed. Soft tissues and bones: Sternotomy wires are aligned and intact. The stomach is distended. Cardiac and mediastinal contours: Prior CABG and aortic valve replacement. Cardiac and mediastinal contours are stable in size. There is a small amount of pneumomediastinum and pericardial air expected after cardiac surgery. Lungs: Right and left lower lobe atelectasis is stable. The lungs otherwise are clear. Pleura: No visible abnormality, although none can be excluded on this nonupright film Impression: 1. Stable regions of right and left lower lobe atelectasis. I have personally reviewed the images and the above interpretation and agree with the findings. Nas Kumari PA-C IMG DIAGNOSTIC IMAGING ORDERABLES * EKG 12-LEAD (05/23/2019 5:12 EDT) 05/23/2019 5:12 EDT Narrative [facility] EKG - 06/19/2019 9:56 EDT ? [facility] ? Test Date: ?2019-05-23 Pat Name: ? JOSE CHEUNG ? Department: ?? [place] ? Room: ? M324 Gender: ? Male ? 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 [id number] : ?1950 ? Requested By: CORNELIUS RAMÍREZ Order Number: [id number] ? Reading MD: ?? LESLYE BEVERLY MD ? Measurements Intervals ?[place] ? Rate: ? 89 ? P: ?35 WI: ? 174 ?QRS: ?2 QRSD: ? 113 ?T: ?79 QT: ? 378 ? QTc: ?461 ? Interpretive Statements SINUS RHYTHM POSSIBLE ANTERIOR MYOCARDIAL INFARCTION, OF INDETERMINATE AGE Compared to ECG 05/22/2019 22:33:00 ST (T wave) deviation no longer present Myocardial infarct finding still present I reviewed the tracing and have either agreed or edited the findings in this report. Electronically Signed On 06-19-2019 9:56:05 EDT by LESLYE BEVERLY MD. Procedure Note Margaret Padron, Leslye Restrepo Jr., MD - 06/19/2019 [facility] Test Date: 2019-05-23 Pat Name: JOSE CHEUNG Department: [place] [address] Room: 24 Gender: Male Make Up Worker: [id number] : 1950 Requested By: CORNELIUS RAMÍREZ Order Number: [id number] Reading MD: LESLYE BEVERLY MD Measurements Intervals [place] Rate: 89 P: 35 WI: 174 QRS: 2 QRSD: 113 T: 79 QT: 378 QTc: 461 Interpretive Statements SINUS RHYTHM POSSIBLE ANTERIOR MYOCARDIAL INFARCTION, OF INDETERMINATE AGE Compared to ECG 05/22/2019 22:33:00 ST (T wave) deviation no longer present Myocardial infarct finding still present I reviewed the tracing and have either agreed or edited the findings inthis report. Electronically Signed On 06-19-2019 9:56:05 EDT by LESLYE BENEDICT. Nas Kumari PA-C CARDIAC ECG ORD ERABLES Performing Organization Address City/[facility]/ZIP Co de Phone Number [facility] EKG * (ABNORMAL) GLUCOSE, GLUCOMETER (05/23/2019 4:16 EDT) Glucose, Fingerstick 172(H) 70 - 100 mg/dl 05/23/2019 4:21 EDT [facility] Line Up Worker ID [id number] 05/23/2019 4:21 T [facility] Comment:Test Performed by [facility] Services BLOOD SPECIMEN / Unknown 05/23/2019 4:16 EDT 05/23/2019 4:21 EDT Jose Stauffer MD CHEMISTRY & BL OOD GAS ORDERABLES Performing Organization Address City/[facility]/ZIP Co de Phone Number [facility] [address] [place] [address] * (ABNORMAL) COMPLETE BLOOD COUNT (05/23/2019 4:15 EDT) [facility] WBC 9.46 4.0 - 10.4 K/cmm 05/23/2019 4:42 T [facility] RBC 4.19(L) 4.36 - 5.78 M/cmm 05/23/2019 4:42 [facility] Hemoglobin 13.2(L) 13.8 - 17.3 gm/dl 05/23/2019 4:42 [facility] HCT 38.2(L) 39.5 - 50.2 % 05/23/2019 4:42 [facility] MCV 91 81 - 95 fl 05/23/2019 4:42 [facility] MCH 31.5 27.6 - 33.0 pg 05/23/2019 4:42 [facility] MCHC 34.6 32.8 - 36.4 gm/dl 05/23/2019 4:42 [facility] RDW-CV 15.1(H) <14.2 % 05/23/2019 4:42 EDT [facility] RDW-SD 49.7(H) <46.0 fl 05/23/2019 4:42 EDT [facility] PLT 193 141 - 377 K/cmm 05/23/2019 4:42 EDT [facility] MPV 11.0 9.5 - 12.7 fl 05/23/2019 4:42 EDT [facility] Blood specimen (specimen) BLOOD SPECIMEN / Unknown 05/23/2019 4:15 EDT 05/23/2019 4:27 EDT Nolan Moctezuma MD HEMATOLOGY & PF4 OR DERABLES Performing Organization Address [facility] Co de Phone Number [facility] [address] [place] [address] * CREATININE (05/23/2019 4:15 EDT) Creatinine 0.94 0.66 - 1.25 mg/dl 05/23/2019 4:46 EDT [facility] GFR, Calculated 83 >60 ml/min/1.7 3m2 05/23/2019 4:46 T [facility] Comment: eGFR calculated using CKD-EPI equation for non Americans. Multiply eGFR by 1.16 for Americans. Blood specimen (specimen) BLOOD SPECIMEN / Unknown 05/23/2019 4:15 EDT 05/23/2019 4:27 EDT Nolan Moctezuma MD CHEMISTRY & BLOOD G ORDERABLES Performing Organization Address [facility] Co de Phone Number [facility] [address] [place] [address] * BUN (05/23/2019 4:15 EDT) BUN 15 10 - 26 mg/dl 05/23/2019 4:46 EDT [facility] Blood specimen (specimen) BLOOD SPECIMEN / Unknown 05/23/2019 4:15 EDT 05/23/2019 4:27 EDT Nolan Moctezuma MD CHEMISTRY & BLOOD G ORDERABLES Performing Organization Address [facility] de Phone Number [facility] [address] [place] [address] * (ABNORMAL) ELECTROLYTES (05/23/2019 4:15 EDT) Sodium 135(L) 136 - 145 mEq/L 05/23/2019 4:46 EDT [facility] Potassium 5.3(H) 3.5 - 5.0 mEq/L 05/23/2019 4:46 EDT [facility] Chloride 105 96 - 110 mEq/L 05/23/2019 4:46 EDT [facility] CO2 25 22 - 32 mEq/L 05/23/2019 4:46 EDT [facility] Blood specimen (specimen) BLOOD SPECIMEN / Unknown 05/23/2019 4:15 EDT 05/23/2019 4:27 EDT Nolan Moctezuma MD CHEMISTRY & BLOOD G ORDERABLES Performing Organization Address [facility] de Phone Number [facility] [address] [place] [address] * EKG 12-LEAD (05/22/2019 22:33 EDT) 05/22/2019 22:3 3 EDT Narrative [facility] EKG - 06/06/2019 13:08 EDT ? [facility] ? Test Date: ?2019-05-22 Pat Name: ? JOSE CHEUNG ? Department: ?? [place] ? Room: ? M324 Gender: ? Male ? 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 [id number] : ?1950 ? Requested By: ADRIANA WHIPPLE Order Number: [id number] ? Reading MD: ?? SIMONA KOEHLERATING MD ? Measurements Intervals ?[place] ? Rate: ? 94 ? P: ?46 WI: ? 164 ?QRS: ?7 QRSD: ? 92 ? T: ?83 QT: ? 334 ? QTc: ?419 ? Interpretive Statements SINUS RHYTHM LOW QRS VOLTAGE IN PRECORDIAL LEADS POSSIBLE INFERIOR MYOCARDIAL INFARCTION, OF INDETERMINATE AGE ST ELEVATION, CONSIDER ANTERIOR INJURY ACUTE DE Compared to ECG 05/22/2019 13:49:18 Low QRS voltage now present Myocardial infarct finding now present ST (T wave) deviation now present First degree AV block no longer present Right bundle-branch block no longer present I reviewed the tracing and have either agreed or edited the findings in this report. Electronically Signed On 06-06-2019 13:08:37 EDT by SIMONA HAMILTON MD. Procedure Note Simona Hamilton MD - 06/06/2019 [facility] Test Date: 2019-05-22 Pat Name: JOSE CHEUNG Department: [place] [address] Room: 24 Gender: Male Make Up Worker: [id number] : 1950 Requested By: ADRIANA WHIPPLE Order Number: [id number] Reading MD: SIMONA STONER Measurements Intervals [place] Rate: 94 P: 46 WI: 164 QRS: 7 QRSD: 92 T: 83 QT: 334 QTc: 419 Interpretive Statements SINUS RHYTHM LOW QRS VOLTAGE IN PRECORDIAL LEADS POSSIBLE INFERIOR MYOCARDIAL INFARCTION, OF INDETERMINATE AGE ST ELEVATION, CONSIDER ANTERIOR INJURY ACUTE DE Compared to ECG 05/22/2019 13:49:18 Low QRS voltage now present Myocardial infarct finding now present ST (T wave) deviation now present First degree AV block no longer present Right bundle-branch block no longer present I reviewed the tracing and have either agreed or edited the findings inthis report. Electronically Signed On 06-06-2019 13:08:37 EDT by STEPHANIE PADRON. Gustavo Robledo MD CARDIAC ECG O RDERABLES [facility] EKG * POTASSIUM (05/22/2019 21:38 EDT) Potassium 5.0 3.5 - 5.0 mEq/L 05/22/2019 22:01 EDT [facility] Blood specimen (specimen) BLOOD SPECIMEN / Unknown 05/22/2019 21:38 EDT 05/22/2019 21:44 EDT Nolan Moctezuma MD CHEMISTRY & BLOOD G ORDERABLES Performing Organization Address [facility] Co de Phone Number [facility] [address] [place] [address] * PHOSPHORUS (05/22/2019 21:38 EDT) Phosphorus 4.1 2.5 - 4.5 mg/dl 05/22/2019 22:01 EDT [facility] Blood specimen (specimen) BLOOD SPECIMEN / Unknown 05/22/2019 21:38 EDT 05/22/2019 21:44 EDT Gustavo Robledo MD CHEMISTRY & B LOOD GAS ORDERABLES Performing Organization Address [facility] de Phone Number [facility] [address] [place] [address] * CALCIUM, IONIZED (05/22/2019 21:38 EDT) Calcium, Ionized 1.15 1.12 - 1.32 mmol/L 05/22/2019 21:50 EDT [facility] Comment: Tube not filled to capacity. Ionized calcium results may be affected. Interpret results with caution. Blood specimen (specimen) BLOOD SPECIMEN / Unknown 05/22/2019 21:38 EDT 05/22/2019 21:44 EDT Gustavo Robledo MD CHEMISTRY & B LOOD GAS ORDERABLES Performing Organization Address [facility] Co de Phone Number [facility] [address] [place] [address] * MAGNESIUM (05/22/2019 21:38 EDT) Magnesium 2.4 1.7 - 2.8 mg/dl 05/22/2019 22:01 EDT [facility] Blood specimen (specimen) BLOOD SPECIMEN / Unknown 05/22/2019 21:38 EDT 05/22/2019 21:44 EDT Daryn Aranad MD CHEMISTRY & BLOOD GAS ORDERABLES Performing Organization Address [facility]/ZIP Co de Phone Number [facility] [address] [place] [address] * (ABNORMAL) GLUCOSE, GLUCOMETER (05/22/2019 19:39 EDT) Glucose, Fingerstick 160(H) 70 - 100 mg/dl 05/22/2019 19:40 [facility] Line Up Worker ID [id number] 05/22/2019 19:40 [facility] Comment:Test Performed by [facility] BLOOD SPECIMEN / Unknown 05/22/2019 19:39 EDT 05/22/2019 19:40 EDT Jose Stauffer MD CHEMISTRY & BL OOD GAS ORDERABLES [facility] [address] [place] [address] * (ABNORMAL) COMPLETE BLOOD COUNT (05/22/2019 19:34 EDT) WBC 11.96(H) 4.0 - 10.4 K/cmm 05/22/2019 20:07 [facility] RBC 4.29(L) 4.36 - 5.78 M/cmm 05/22/2019 20:07 [facility] Hemoglobin 13.5(L) 13.8 - 17.3 gm/dl 05/22/2019 20:07 [facility] HCT 39.0(L) 39.5 - 50.2 % 05/22/2019 20:07 [facility] MCV 91 81 - 95 fl 05/22/2019 20:07 [facility] MCH 31.5 27.6 - 33.0 pg 05/22/2019 20:07 [facility] MCHC 34.6 32.8 - 36.4 gm/dl 05/22/2019 20:07 [facility] RDW-CV 14.9(H) <14.2 % 05/22/2019 20:07 [facility] RDW-SD 49.9(H) <46.0 fl 05/22/2019 20:07 [facility] PLT 190 141 - 377 K/cmm 05/22/2019 20:07 EDT [facility] MPV 10.8 9.5 - 12.7 fl 05/22/2019 20:07 EDT [facility] Blood specimen (specimen) BLOOD SPECIMEN / Unknown 05/22/2019 19:34 EDT 05/22/2019 19:48 EDT Nas Vega MD HEMATOLOGY & PF4 ORD ERABLES Performing Organization Address [facility] de Phone Number [facility] [address] [place] [address] * (ABNORMAL) POTASSIUM (05/22/2019 19:34 EDT) Potassium 5.2(H) 3.5 - 5.0 mEq/L 05/22/2019 20:09 EDT [facility] Blood specimen (specimen) BLOOD SPECIMEN / Unknown 05/22/2019 19:34 EDT 05/22/2019 19:48 EDT Nas Kumari PA-C CHEMISTRY & BLO OD GAS ORDERABLES Performing Organization Address [facility] de Phone Number [facility] [address] [place] [address] * SURGICAL PATHOLOGY (05/22/2019 17:48 EDT) Pathology Report: SURGICAL PATHOLOGY REPORT Reports generated via electronic interface contain original data; however they are lacking the format of the original report. Caution should be taken when reading/interpret ing unformatted reports. Name: ? JOSE CHEUNG ? Accession #: ? [id number] ? : ? 1950 (Age: 68) ??M ? Collect Date: ? 05/22/2019 ? Location: ? MR03 ? Receive Date: ? 05/22/2019 ? Provider: HAMLET BARAJAS MD Copy to: LORRIE STAUFFER MD ? 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 Document reviewed and electronically signed by: TYRELL CARCAMO MD Report ??Date: 05/27/2019 17:19 By the signature above, the attending physician certifies that he/she has personally conducted a gross and/or microscopic examination of the described specimens and rendered or confirmed the above diagnosis. Specimen(s) Received: Aortic valve leaflets Clinical History: CAD, aortic regurg Gross Description: ? Received in normal saline labelled with proper patient identification (initials T, W) and A. aortic valve leaflets are three valve cusps (1.8 x 0.6 cm to 2.8 x 1.2 cm). The surfaces are white shiny and firm. The cusps vary in thickness from 0.2-0.4 cm. Submitted entirely in 1-[address] Parnell 05/23/2019 4:13 PM End of Report [facility] 05/22/2019 17:4 8 EDT 05/22/2019 17:48 EDT Hamlet Barajas MD PATHOLOGY ORDERAB LES [facility] [address] [place] [address] * ECG REPORT - SCANNED (05/22/2019 16:13 EDT) 05/22/2019 16:1 3 EDT Scan 2 Job Development Specialist PROCEDURE/MINOR ZOË GICAL ORDERABLES * (ABNORMAL) GLUCOSE, GLUCOMETER (05/22/2019 15:46 EDT) Glucose, Fingerstick 118(H) 70 - 100 mg/dl 05/22/2019 23:25 [facility] Line Up Worker ID [id number] 05/22/2019 23:25 [facility] Comment:Test Performed by [facility] BLOOD SPECIMEN / Unknown 05/22/2019 15:46 EDT 05/22/2019 23:25 EDT Jose Stauffer MD CHEMISTRY & BL OOD GAS ORDERABLES Performing Organization Address City/[facility]/ZIP Co de Phone Number [facility] [address] [place] [address] * (ABNORMAL) BLOOD GAS, G3 ISTAT (05/22/2019 14:07 EDT) pH, i-STAT 7.42 7.35 - 7.45 05/22/2019 14:11 [facility] pCO2, i-STAT 37 35 - 45 mmHg 05/22/2019 14:11 [facility] pO2, i-STAT 76(L) 80 - 105 mmHg 05/22/2019 14:11 [facility] TCO2, i-STAT 25 23 - 27 mEq/L 05/22/2019 14:11 [facility] O2 Saturation 95 95 - 98 % 05/22/2019 14:11 [facility] Base Deficit, i-STAT 1 05/22/2019 14:11 [facility] Sample Type ARTERIAL 05/22/2019 14:11 [facility] candy decorator ID [id number] 05/22/2019 14:11 [facility] Comment: Test Performed by Respiratory For non-arterial reference ranges, please see ISTAT procedure. BLOOD SPECIMEN / Unknown 05/22/2019 14:07 EDT 05/22/2019 14:11 EDT Jose Stauffer MD CHEMISTRY & BL OOD GAS ORDERABLES Performing Organization Address [facility]/ZIP Co de Phone Number [facility] [address] [place] [address] * PORTABLE CHEST PA CENTRAL LINE/PICC/ET TUBE,INITIAL INSERTION (05/22/2019 13:49 EDT) Anatomical Region Laterality Modality Other 05/22/2019 13:4 9 EDT 05/22/2019 15:52 EDT Narrative 05/22/2019 15:52 EDT PORTABLE CHEST 1 VIEW INITIAL LINE, ET INSERTION ??05/22/2019 1:49 PM Clinical History/Comments: Central line and ET tube placement Comparison: Chest CT April 17, 2019, chest x-ray dated May 14, 2019. Findings: Single portable AP view of the chest. Lines/tubes: ??Right IJ central line terminates in the upper SVC. Endotracheal tube terminates in the lower trachea. Sternotomy wires are aligned and intact. CABG clips are present. Transesophageal tube with the sump below the GE junction. Epicardial pacer wire and 2 mediastinal tubes are present. 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 Soft tissues and bones: No abnormality Cardiac and mediastinal contours: No abnormality. Lungs: The pulmonary vasculature is normal and the lungs are underinflated but clear. Pleura: Pneumothorax and pleural fluid cannot be excluded on a non-upright portable film. Impression: 1. Tip of the endotracheal tube is encroaching the ernestina. Recommend pulling ET tube out by 1.5 cm. 2. Remainder of the lines and tubes are in satisfactory position. The case was reviewed with the patient's nurse named Law at the time of dictation. I have personally reviewed the images and the above interpretation and agree with the findings. Procedure Note Law Rodriguez MD, MD - 05/22/2019 PORTABLE CHEST 1 VIEW INITIAL LINE, ET INSERTION 05/22/2019 1:49 PM Clinical History/Comments: Central line and ET tube placement Comparison: Chest CT April 17, 2019, chest x-ray dated May 14, 2019. Findings: Single portable AP view of the chest. Lines/tubes: Right IJ central line terminates in the upper SVC. Endotracheal tube terminates in the lower trachea. Sternotomy wires are aligned and intact. CABG clips are present. Transesophageal tube with the sump below the GE junction. Epicardial pacer wire and 2 mediastinal tubes are present. 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 Soft tissues and bones: No abnormality Cardiac and mediastinal contours: No abnormality. Lungs: The pulmonary vasculature is normal and the lungs are underinflated but clear. Pleura: Pneumothorax and pleural fluid cannot be excluded on a non-upright portable film. Impression: 1. Tip of the endotracheal tube is encroaching the ernestina. Recommend pulling ET tube out by 1.5 cm. 2. Remainder of the lines and tubes are in satisfactory position. The case was reviewed with the patient's nurse named Law at the time of dictation. I have personally reviewed the images and the above interpretation and agree with the findings. Nas Kumari PA-C IMG DIAGNOSTIC IMAGING ORDERABLES * EKG 12-LEAD (05/22/2019 13:49 EDT) 05/22/2019 13:4 9 EDT Narrative [facility] EKG - 05/22/2019 16:07 EDT ? [facility] ? Test Date: ?2019-05-22 Pat Name: ? JOSE CHEUNG ? Department: ?? [place] [address] ? Room: ? M324 Gender: ? Male ? 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 [id number] : ?1950 ? Requested By: CORNELIUS RAMÍREZ Order Number: [id number] ? Marshal PADRON: ?? BERRY REED MD ? Measurements Intervals ?[place] ? Rate: ? 85 ? P: ?28 WI: ? 284 ?QRS: ?29 QRSD: ? 120 ?T: ?41 QT: ? 415 ? QTc: ?494 ? Interpretive Statements SINUS RHYTHM WITH FIRST DEGREE AV BLOCK RIGHT BUNDLE BRANCH BLOCK Compared to ECG 05/14/2019 12:27:57 First degree AV block now present Right bundle-branch block now present I reviewed the tracing and have either agreed or edited the findings in this report. Electronically Signed On 05-22-2019 16:07:57 EDT by BERRY REED MD. Procedure Note Berry Reed MD - 05/22/2019 [facility] Test Date: 2019-05-22 Pat Name: JOSE CHEUNG Department: [place] [address] Room: 24 Gender: Male Make Up Worker: [id number] : 1950 Requested By: CORNELIUS RAMÍREZ Order Number: [id number] Reading MD: BERRY REED MD Measurements Intervals [place] Rate: 85 P: 28 WI: 284 QRS: 29 QRSD: 120 T: 41 QT: 415 QTc: 494 Interpretive Statements SINUS RHYTHM WITH FIRST DEGREE AV BLOCK RIGHT BUNDLE BRANCH BLOCK Compared to ECG 05/14/2019 12:27:57 First degree AV block now present Right bundle-branch block now present I reviewed the tracing and have either agreed or edited the findings inthis report. Electronically Signed On 05-22-2019 16:07:57 EDT by BERRY RAMOS. Nas Kumari PA-C CARDIAC ECG ORD ERABLES Performing Organization Address City/[facility] Co de Phone Number [facility] EKG * MRSA PCR (05/22/2019 13:45 EDT) Result No Staphylococcus aureus detected by PCR. 05/22/2019 19:34 EDT [facility] Specimen of unknown material (specimen) NASAL ROUTE / Unknown 05/22/2019 13:45 EDT 05/22/2019 16:11 EDT Hamlet Barajas MD MICROBIOLOGY - GE NERAL ORDERABLES Performing Organization Address [facility] Co de Phone Number [facility] [address] [place] [address] * (ABNORMAL) CALCIUM, IONIZED (05/22/2019 13:39 EDT) Calcium, Ionized 1.07(L) 1.12 - 1.32 mmol/L 05/22/2019 14:10 EDT [facility] Blood specimen (specimen) BLOOD SPECIMEN / Unknown 05/22/2019 13:39 EDT 05/22/2019 13:48 EDT Daryn Aranda MD CHEMISTRY & BLOOD GAS ORDERABLES Performing Organization Address [facility] Co de Phone Number [facility] [address] [place] [address] * (ABNORMAL) COMPLETE BLOOD COUNT (05/22/2019 13:35 EDT) WBC 12.03(H) 4.0 - 10.4 K/cmm 05/22/2019 13:59 [facility] RBC 3.91(L) 4.36 - 5.78 M/cmm 05/22/2019 13:59 [facility] Hemoglobin 12.3(L) 13.8 - 17.3 gm/dl 05/22/2019 13:59 [facility] HCT 35.2(L) 39.5 - 50.2 % 05/22/2019 13:59 [facility] MCV 90 81 - 95 fl 05/22/2019 13:59 [facility] MCH 31.5 27.6 - 33.0 pg 05/22/2019 13:59 [facility] MCHC 34.9 32.8 - 36.4 gm/dl 05/22/2019 13:59 [facility] RDW-CV 14.5(H) <14.2 % 05/22/2019 13:59 [facility] RDW-SD 47.8(H) <46.0 fl 05/22/2019 13:59 [facility] PLT 184 141 - 377 K/cmm 05/22/2019 13:59 [facility] MPV 10.6 9.5 - 12.7 fl 05/22/2019 13:59 [facility] Blood specimen (specimen) BLOOD SPECIMEN / Unknown 05/22/2019 13:35 EDT 05/22/2019 13:48 EDT Nas Kumari PA-C HEMATOLOGY & PF 4 ORDERABLES [facility] [address] [place] [address] * POTASSIUM (05/22/2019 13:35 EDT) Potassium 3.9 3.5 - 5.0 mEq/L 05/22/2019 14:02 [facility] Blood specimen (specimen) BLOOD SPECIMEN / Unknown 05/22/2019 13:35 EDT 05/22/2019 13:48 EDT Nas Kumari PA-C CHEMISTRY & BLO OD GAS ORDERABLES Performing Organization Address [facility]/ZIP Co de Phone Number [facility] [address] [place] [address] * (ABNORMAL) GLUCOSE, GLUCOMETER (05/22/2019 13:34 EDT) Glucose, Fingerstick 114(H) 70 - 100 mg/dl 05/22/2019 13:38 EDT [facility] Line Up Worker ID [id number] 05/22/2019 13:38 EDT [facility] Comment:Test Performed by Nu rsing Services BLOOD SPECIMEN / Unknown 05/22/2019 13:34 EDT 05/22/2019 13:38 EDT Jose Stauffer MD CHEMISTRY & BL OOD GAS ORDERABLES Performing Organization Address [facility] Co de Phone Number [facility] [address] [place] [address] * ACT, KAOLIN ISTAT (05/22/2019 12:33 EDT) Activated Clotting Time 120 74 - 137 sec 05/22/2019 12:53 EDT [facility] candy decorator ID [id number] 05/22/2019 12:53 EDT [facility] Comment: Test performed by Perfusion Therapeutic interventional range is dependent upon patient population and procedure type. BLOOD SPECIMEN / Unknown 05/22/2019 12:33 EDT 05/22/2019 12:53 EDT Jose Stauffer MD POINT OF CARE TEST ORDERABLES Performing Organization Address [facility] Co de Phone Number [facility] [address] [place] [address] * (ABNORMAL) BLOOD GAS, CG8 ISTAT (05/22/2019 12:31 EDT) pH, i-STAT 7.45 7.35 - 7.45 05/22/2019 12:53 EDT [facility] pCO2, i-STAT 40 35 - 45 mmHg 05/22/2019 12:53 [facility] pO2, i-STAT 427(H) 80 - 105 mmHg 05/22/2019 12:53 [facility] TCO2, i-STAT 29(H) 23 - 27 mEq/L 05/22/2019 12:53 [facility] O2 Saturation 100(H) 95 - 98 % 05/22/2019 12:53 [facility] Sodium, i-STAT 140 136 - 145 mEq/L 05/22/2019 12:53 [facility] Potassium, i-STAT 3.8 3.5 - 5.0 mEq/L 05/22/2019 12:53 [facility] Glucose, I-STAT 133(H) 70 - 100 mg/dl 05/22/2019 12:53 [facility] Hematocrit,iSTA T 30(L) 39.5 - 50.2 % 05/22/2019 12:53 [facility] Calcium, Ionized 1.27 1.12 - 1.32 mmol/L 05/22/2019 12:53 [facility] Base Excess, i-STAT 4 05/22/2019 12:53 [facility] Sample Type NOT GIVEN 05/22/2019 12:53 [facility] candy decorator ID [id number] 05/22/2019 12:53 [facility] Comment: Test performed by Perfusion For non-arterial reference ranges, please see ISTAT procedure. BLOOD SPECIMEN / Unknown 05/22/2019 12:31 EDT 05/22/2019 12:53 EDT Jose Stauffer MD CHEMISTRY & BL OOD GAS ORDERABLES [facility] [address] [place] [address] * (ABNORMAL) ACT KAOLIN ISTAT (05/22/2019 11:49 EDT) Activated Clotting Time 588(H) 74 - 137 sec 05/22/2019 12:16 [facility] candy decorator ID [id number] 05/22/2019 12:16 [facility] Comment: Test performed by Perfusion Therapeutic interventional range is dependent upon patient population and procedure type. BLOOD SPECIMEN / Unknown 05/22/2019 11:49 EDT 05/22/2019 12:16 EDT Jose Stauffer MD POINT OF CARE TEST ORDERABLES [facility] [address] [place] [id number] * (ABNORMAL) BLOOD GAS, CG8 ISTAT (05/22/2019 11:49 EDT) pH, i-STAT 7.49(H) 7.35 - 7.45 05/22/2019 12:09 [facility] pCO2, i-STAT 39 35 - 45 mmHg 05/22/2019 12:09 [facility] pO2, i-STAT 524(H) 80 - 105 mmHg 05/22/2019 12:09 [facility] TCO2, i-STAT 31(H) 23 - 27 mEq/L 05/22/2019 12:09 [facility] O2 Saturation 100(H) 95 - 98 % 05/22/2019 12:09 [facility] Sodium, i-STAT 139 136 - 145 mEq/L 05/22/2019 12:09 [facility] Potassium, i-STAT 4.2 3.5 - 5.0 mEq/L 05/22/2019 12:09 [facility] Glucose, I-STAT 138(H) 70 - 100 mg/dl 05/22/2019 12:09 [facility] Hematocrit,iSTA T 33(L) 39.5 - 50.2 % 05/22/2019 12:09 [facility] Calcium, Ionized 1.00(L) 1.12 - 1.32 mmol/L 05/22/2019 12:09 [facility] Base Excess, i-STAT 6 05/22/2019 12:09 [facility] Sample Type NOT GIVEN 05/22/2019 12:09 [facility] candy decorator ID [id number] 05/22/2019 12:09 [facility] Comment: Test performed by Perfusion For non-arterial reference ranges, please see ISTAT procedure. BLOOD SPECIMEN / Unknown 05/22/2019 11:49 EDT 05/22/2019 12:09 EDT Jose Stauffer MD CHEMISTRY & BL OOD GAS ORDERABLES [facility] [address] [place] [address] * (ABNORMAL) BLOOD GAS, CG8 ISTAT (05/22/2019 11:16 EDT) pH, i-STAT 7.49(H) 7.35 - 7.45 05/22/2019 11:35 [facility] pCO2, i-STAT 42 35 - 45 mmHg 05/22/2019 11:35 [facility] pO2, i-STAT 592(H) 80 - 105 mmHg 05/22/2019 11:35 [facility] TCO2, i-STAT 33(H) 23 - 27 mEq/L 05/22/2019 11:35 [facility] O2 Saturation 100(H) 95 - 98 % 05/22/2019 11:35 [facility] Sodium, i-STAT 139 136 - 145 mEq/L 05/22/2019 11:35 [facility] Potassium, i-STAT 4.3 3.5 - 5.0 mEq/L 05/22/2019 11:35 [facility] Glucose, I-STAT 132(H) 70 - 100 mg/dl 05/22/2019 11:35 [facility] Hematocrit,iSTA T 31(L) 39.5 - 50.2 % 05/22/2019 11:35 [facility] Calcium, Ionized 1.00(L) 1.12 - 1.32 mmol/L 05/22/2019 11:35 [facility] Base Excess, i-STAT 8 05/22/2019 11:35 EDT [facility] Sample Type NOT GIVEN 05/22/2019 11:35 EDT [facility] candy decorator ID [id number] 05/22/2019 11:35 EDT [facility] Comment: Test performed by Perfusion For non-arterial reference ranges, please see ISTAT procedure. BLOOD SPECIMEN / Unknown 05/22/2019 11:16 EDT 05/22/2019 11:35 EDT Jose Stauffer MD CHEMISTRY & BL OOD GAS ORDERABLES Performing Organization Address City/[facility]/ZIP Co de Phone Number [facility] [address] [place] [address] * INPATIENT ADD-ON (05/22/2019 11:05 EDT) Tests to be added HEMOGLOBIN A1C 05/22/2019 11:04 EDT [facility] Number for problems [id number] 05/22/2019 11:30 EDT [facility] Accession number [id number] 05/22/2019 11:30 EDT [facility] TOPOGRAPHY UNKNOWN / Unknown 05/22/2019 11:05 EDT 05/22/2019 11:29 EDT Jessy Hernandez DIRECT MARKETING INTERN HEMATOLOGY & PF4 OR DERABLES Performing Organization Address City/[facility] Co de Phone Number [facility] [address] [place] [address] * (ABNORMAL) ACT KAOLIN ISTAT (05/22/2019 10:58 EDT) Activated Clotting Time 676(H) 74 - 137 sec 05/22/2019 11:30 EDT [facility] candy decorator ID [id number] 05/22/2019 11:30 EDT [facility] Comment: Test performed by Perfusion Therapeutic interventional range is dependent upon patient population and procedure type. BLOOD SPECIMEN / Unknown 05/22/2019 10:58 EDT 05/22/2019 11:30 EDT Jose Stauffer MD POINT OF CARE TEST ORDERABLES [facility] [address] [place] [address] * (ABNORMAL) BLOOD GAS, CG8 ISTAT (05/22/2019 10:47 EDT) pH, i-STAT 7.40 7.35 - 7.45 05/22/2019 11:05 [facility] pCO2, i-STAT 43 35 - 45 mmHg 05/22/2019 11:05 [facility] pO2, i-STAT 54(L) 80 - 105 mmHg 05/22/2019 11:05 [facility] TCO2, i-STAT 28(H) 23 - 27 mEq/L 05/22/2019 11:05 [facility] O2 Saturation 87(L) 95 - 98 % 05/22/2019 11:05 [facility] Sodium, i-STAT 140 136 - 145 mEq/L 05/22/2019 11:05 [facility] Potassium, i-STAT 4.3 3.5 - 5.0 mEq/L 05/22/2019 11:05 [facility] Glucose, I-STAT 114(H) 70 - 100 mg/dl 05/22/2019 11:05 [facility] Hematocrit,iSTA T 28(L) 39.5 - 50.2 % 05/22/2019 11:05 [facility] Calcium, Ionized 0.99(L) 1.12 - 1.32 mmol/L 05/22/2019 11:05 [facility] Base Excess, i-STAT 2 05/22/2019 11:05 [facility] Sample Type NOT GIVEN 05/22/2019 11:05 [facility] candy decorator ID [id number] 05/22/2019 11:05 [facility] Comment: Test performed by Perfusion For non-arterial reference ranges, please see ISTAT procedure. BLOOD SPECIMEN / Unknown 05/22/2019 10:47 EDT 05/22/2019 11:05 EDT Jose Stauffer MD CHEMISTRY & BL OOD GAS ORDERABLES Performing Organization Address City/[facility]/ZIP Co de Phone Number [facility] [address] [place] [address] * (ABNORMAL) ACT, DENNISEOLIN ISTAT (05/22/2019 10:26 EDT) Activated Clotting Time 505(H) 74 - 137 sec 05/22/2019 10:52 EDT [facility] candy decorator ID [id number] 05/22/2019 10:52 EDT [facility] Comment: Test performed by Perfusion Therapeutic interventional range is dependent upon patient population and procedure type. BLOOD SPECIMEN / Unknown 05/22/2019 10:26 EDT 05/22/2019 10:52 EDT Jose Stauffer MD POINT OF CARE TEST ORDERABLES Performing Organization Address [facility] Co de Phone Number [facility] [address] [place] [address] * (ABNORMAL) BLOOD GAS, CG8 ISTAT (05/22/2019 10:26 EDT) pH, i-STAT 7.38 7.35 - 7.45 05/22/2019 10:45 [facility] pCO2, i-STAT 45 35 - 45 mmHg 05/22/2019 10:45 [facility] pO2, i-STAT 602(H) 80 - 105 mmHg 05/22/2019 10:45 [facility] TCO2, i-STAT 28(H) 23 - 27 mEq/L 05/22/2019 10:45 [facility] O2 Saturation 100(H) 95 - 98 % 05/22/2019 10:45 [facility] Sodium, i-STAT 140 136 - 145 mEq/L 05/22/2019 10:45 [facility] Potassium, i-STAT 4.0 3.5 - 5.0 mEq/L 05/22/2019 10:45 [facility] Glucose, I-STAT 104(H) 70 - 100 mg/dl 05/22/2019 10:45 [facility] Hematocrit,iSTA T 30(L) 39.5 - 50.2 % 05/22/2019 10:45 [facility] Calcium, Ionized 0.91(L) 1.12 - 1.32 mmol/L 05/22/2019 10:45 [facility] Base Excess, i-STAT 1 05/22/2019 10:45 [facility] Sample Type NOT GIVEN 05/22/2019 10:45 [facility] candy decorator ID [id number] 05/22/2019 10:45 [facility] Comment: Test performed by Perfusion For non-arterial reference ranges, please see ISTAT procedure. BLOOD SPECIMEN / Unknown 05/22/2019 10:26 EDT 05/22/2019 10:45 EDT Jose Stauffer MD CHEMISTRY & BL OOD GAS ORDERABLES Performing Organization Address City/State/[facility] Co de Phone Number [facility] [address] [place] [address] * (ABNORMAL) BLOOD GAS, CG8 ISTAT (05/22/2019 10:13 EDT) pH, i-STAT 7.37 7.35 - 7.45 05/22/2019 10:21 [facility] pCO2, i-STAT 54(H) 35 - 45 mmHg 05/22/2019 10:21 [facility] pO2, i-STAT 536(H) 80 - 105 mmHg 05/22/2019 10:21 [facility] TCO2, i-STAT 32(H) 23 - 27 mEq/L 05/22/2019 10:21 [facility] O2 Saturation 100(H) 95 - 98 % 05/22/2019 10:21 [facility] Sodium, i-STAT 140 136 - 145 mEq/L 05/22/2019 10:21 [facility] Potassium, i-STAT 3.9 3.5 - 5.0 mEq/L 05/22/2019 10:21 [facility] Glucose, I-STAT 111(H) 70 - 100 mg/dl 05/22/2019 10:21 [facility] Hematocrit,iSTA T 36(L) 39.5 - 50.2 % 05/22/2019 10:21 [facility] Calcium, Ionized 1.09(L) 1.12 - 1.32 mmol/L 05/22/2019 10:21 [facility] Base Excess, i-STAT 5 05/22/2019 10:21 [facility] Sample Type NOT GIVEN 05/22/2019 10:21 [facility] candy decorator ID [id number] 05/22/2019 10:21 [facility] Comment: Test performed by Perfusion For non-arterial reference ranges, please see ISTAT procedure. 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 BLOOD SPECIMEN / Unknown 05/22/2019 10:12 EDT 05/22/2019 10:52 EDT Jose Stauffer MD POINT OF CARE TEST ORDERABLES Performing Organization Address City/[facility]/ZIP Co de Phone Number [facility] [address] [place] [address] * (ABNORMAL) BLOOD GAS, CG8 ISTAT (05/22/2019 9:34 EDT) pH, i-STAT 7.38 7.35 - 7.45 05/22/2019 9:54 [facility] pCO2, i-STAT 51(H) 35 - 45 mmHg 05/22/2019 9:54 [facility] pO2, i-STAT 409(H) 80 - 105 mmHg 05/22/2019 9:54 [facility] TCO2, i-STAT 31(H) 23 - 27 mEq/L 05/22/2019 9:54 [facility] O2 Saturation 100(H) 95 - 98 % 05/22/2019 9:54 [facility] Sodium, i-STAT 141 136 - 145 mEq/L 05/22/2019 9:54 [facility] Potassium, i-STAT 3.5 3.5 - 5.0 mEq/L 05/22/2019 9:54 [facility] Glucose, I-STAT 100 70 - 100 mg/dl 05/22/2019 9:54 [facility] Hematocrit,iSTA T 37(L) 39.5 - 50.2 % 05/22/2019 9:54 [facility] Calcium, Ionized 1.13 1.12 - 1.32 mmol/L 05/22/2019 9:54 [facility] Base Excess, i-STAT 4 05/22/2019 9:54 [facility] Sample Type NOT GIVEN 05/22/2019 9:54 [facility] 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 Target <7.0% For children and adolescents with type 1 diabetes: ?? Target <7.5% More or less stringent targets may be appropriate for individual patients. Add on order Est Avg Glucose 120 mg/dl 9 14:10 EDT [facility] Comment: eAG represents the A1c result expressed as average glucose in mg/dl. Add on order BLOOD SPECIMEN / Unknown 05/22/2019 5:44 EDT 05/22/2019 5:45 EDT Rosio Treviño MD CHEMISTRY & BLOOD GA S ORDERABLES Performing Organization Address City/[facility]/ZIP Co de Phone Number [facility] [address] [place] [address] * CREATININE (05/22/2019 5:44 EDT) Creatinine 0.95 0.66 - 1.25 mg/dl 05/22/2019 6:43 EDT [facility] GFR, Calculated 82 >60 ml/min/1.7 3m2 05/22/2019 6:43 EDT [facility] Comment: eGFR calculated using CKD-EPI equation for non Americans. Multiply eGFR by 1.16 for Americans. Blood specimen (specimen) BLOOD SPECIMEN / Unknown 05/22/2019 5:44 EDT 05/22/2019 5:45 EDT Ifeoma Mcbride MD CHEMISTRY & BLOOD GA S ORDERABLES Performing Organization Address [facility] Co de Phone Number [facility] [address] [place] [address] * ELECTROLYTES (05/22/2019 5:44 EDT) Sodium 138 136 - 145 mEq/L 05/22/2019 6:43 EDT [facility] Potassium 4.5 3.5 - 5.0 mEq/L 05/22/2019 6:43 EDT [facility] Chloride 102 96 - 110 mEq/L 05/22/2019 6:43 EDT [facility] CO2 31 22 - 32 mEq/L 05/22/2019 6:43 T [facility] Blood specimen (specimen) BLOOD SPECIMEN / Unknown 05/22/2019 5:44 EDT 05/22/2019 5:45 EDT Ifeoma Mcbride MD CHEMISTRY & BLOOD GA S ORDERABLES Performing Organization Address City/[facility]/ZIP Co de Phone Number [facility] [address] [place] [address] * (ABNORMAL) COMPLETE BLOOD COUNT (05/22/2019 5:44 EDT) WBC 6.69 4.0 - 10.4 K/cmm 05/22/2019 6:16 [facility] RBC 5.07 4.36 - 5.78 M/cmm 05/22/2019 6:16 [facility] Hemoglobin 15.8 13.8 - 17.3 gm/dl 05/22/2019 6:16 [facility] HCT 46.4 39.5 - 50.2 % 05/22/2019 6:16 [facility] MCV 92 81 - 95 fl 05/22/2019 6:16 [facility] MCH 31.2 27.6 - 33.0 pg 05/22/2019 6:16 [facility] MCHC 34.1 32.8 - 36.4 gm/dl 05/22/2019 6:16 [facility] RDW-CV 14.6(H) <14.2 % 05/22/2019 6:16 [facility] RDW-SD 49.3(H) <46.0 fl 05/22/2019 6:16 [facility] PLT 261 141 - 377 K/cmm 05/22/2019 6:16 [facility] MPV 10.7 9.5 - 12.7 fl 05/22/2019 6:16 [facility] Blood specimen (specimen) BLOOD SPECIMEN / Unknown 05/22/2019 5:44 EDT 05/22/2019 5:45 EDT Ifeoma Mcbride MD HEMATOLOGY & PF4 ORD ERABLES [facility] [address] [place] [address] * MAGNESIUM (05/22/2019 5:44 EDT) Magnesium 2.3 1.7 - 2.8 mg/dl 05/22/2019 6:43 [facility] Blood specimen (specimen) BLOOD SPECIMEN / Unknown 05/22/2019 5:44 EDT 05/22/2019 5:45 EDT Rosio Treviño MD CHEMISTRY & BLOOD GA S ORDERABLES Performing Organization Address [facility] Co de Phone Number [facility] [address] [place] [address] * CREATININE (05/21/2019 5:39 EDT) Creatinine 1.05 0.66 - 1.25 mg/dl 05/21/2019 6:42 EDT [facility] GFR, Calculated 73 >60 ml/min/1.7 3m2 05/21/2019 6:42 EDT [facility] Comment: eGFR calculated using CKD-EPI equation for non Americans. Multiply eGFR by 1.16 for Americans. Blood specimen (specimen) BLOOD SPECIMEN / Unknown 05/21/2019 5:39 EDT 05/21/2019 6:07 EDT Noelle Frias DO CHEMISTRY & BLOOD G ORDERABLES Performing Organization Address [facility] Co de Phone Number [facility] [address] [place] [address] * (ABNORMAL) COMPLETE BLOOD COUNT (05/21/2019 5:39 EDT) WBC 5.16 4.0 - 10.4 K/cmm 05/21/2019 6:29 [facility] RBC 4.68 4.36 - 5.78 M/cmm 05/21/2019 6:29 [facility] Hemoglobin 14.7 13.8 - 17.3 gm/dl 05/21/2019 6:29 [facility] HCT 42.8 39.5 - 50.2 % 05/21/2019 6:29 [facility] MCV 92 81 - 95 fl 05/21/2019 6:29 [facility] MCH 31.4 27.6 - 33.0 pg 05/21/2019 6:29 [facility] MCHC 34.3 32.8 - 36.4 gm/dl 05/21/2019 6:29 [facility] RDW-CV 14.6(H) <14.2 % 05/21/2019 6:29 EDT [facility] RDW-SD 49.0(H) <46.0 fl 05/21/2019 6:29 EDT [facility] PLT 251 141 - 377 K/cmm 05/21/2019 6:29 EDT [facility] MPV 10.6 9.5 - 12.7 fl 05/21/2019 6:29 EDT [facility] Blood specimen (specimen) BLOOD SPECIMEN / Unknown 05/21/2019 5:39 EDT 05/21/2019 6:07 EDT Noelle Frias DO HEMATOLOGY & PF4 OR DERABLES Performing Organization Address City/[facility]/ZIP Co de Phone Number [facility] [address] [place] [address] * ELECTROLYTES (05/21/2019 5:39 EDT) Sodium 138 136 - 145 mEq/L 05/21/2019 6:42 T [facility] Potassium 4.3 3.5 - 5.0 mEq/L 05/21/2019 6:42 [facility] Chloride 102 96 - 110 mEq/L 05/21/2019 6:42 T [facility] CO2 32 22 - 32 mEq/L 05/21/2019 6:42 [facility] [facility] Blood specimen (specimen) BLOOD SPECIMEN / Unknown 05/21/2019 5:39 EDT 05/21/2019 6:07 EDT Noelle Frias DO CHEMISTRY & BLOOD G ORDERABLES Performing Organization Address City/[facility]/ZIP Co de Phone Number [facility] [address] [place] [address] * MAGNESIUM (05/21/2019 5:39 EDT) Magnesium 2.3 1.7 - 2.8 mg/dl 05/21/2019 6:42 EDT [facility] Blood specimen (specimen) BLOOD SPECIMEN / Unknown 05/21/2019 5:39 EDT 05/21/2019 6:07 EDT Rosio Treviño MD CHEMISTRY & BLOOD GA S ORDERABLES Performing Organization Address [facility] Co de Phone Number [facility] [address] [place] [address] * TYPE AND SCREEN (05/21/2019 5:37 EDT) Antibody Screen Negative [facility] Comment: Patient is electronic crossmatch eligible. Units available upon request for transfusion. Specimen Expires: 05/24/2019 @ 23:59 [facility] ABO O [facility] Rh Factor Positive [facility] Blood specimen (specimen) 05/21/2019 5:37 EDT Jessy Hernandez NP BLOOD BANK TESTS Performing Organization Address [facility] de Phone Number [facility] [address] [place] [address] * MRSA PCR (05/20/2019 21:26 EDT) Result No Staphylococcus aureus detected by PCR. 05/21/2019 10:36 EDT [facility] Specimen of unknown material (specimen) NASAL ROUTE / Unknown 05/20/2019 21:26 EDT 05/20/2019 22:44 EDT Jessy Hernandez NP MICROBIOLOGY - GENE RAL ORDERABLES Performing Organization Address [facility] Co de Phone Number [facility] [address] [place] [address] * VL VEIN MAPPING BILATERAL (05/20/2019 16:27 EDT) Anatomical Region Laterality Modality Other 05/20/2019 16:2 7 EDT Narrative 05/23/2019 16:07 EDT Vascular Diagnostic Laboratory [facility] [place], [facility], Level [address] [place] [address] Technologist: Guy Estrada Fellow: IMPRESSIONS 1. No evidence of deep or superficial vein thrombosis in the right lower ?? extremity or the left lower extremity. 2. Superficial veins evaluated and measured as below. 3. Reflux in the bilateral greater saphenous veins. PROCEDURE: Vessel mapping for coronary artery bypass; duplex scan of lower extremity veins including responses to compression and other maneuvers. ?? 2D ultrasound, color flow Doppler, spectral Doppler, and vessel mapping. VESSEL MEASUREMENT TABLE: + + +------+ + + Vessel ? Location ?? AP ? Observations Comments ? + + +------+ + + Right GSV ? Proximal ?? 0.57cm ? + + +------+ + + ? Mid thigh 0.46cm ? + + +------+ + + ? Mid ? 0.40cm ? Reflux. ? + + +------+ + + ? Below knee 0.48cm ? + + +------+ + + ? Mid calf ?? 0.41cm ? + + +------+ + + ? Distal ? 0.42cm ? + + +------+ + + Right SSV ? Proximal ? + + +------+ + + Left GSV ? Proximal ?? 0.46cm ? + + +------+ + + ? Mid thigh 0.52cm ? + + +------+ + + ? Above knee 0.40cm ? + + +------+ + + ? Mid ? 0.42cm ? Reflux. ? + + +------+ + + ? Below knee 0.34cm ? + + +------+ + + ? Mid calf ?? 0.30cm ? Parallel branch. + + +------+ + + ? Distal ? 0.33cm ? + + +------+ + + Left SSV ? Proximal ? + + +------+ + + R radial ? Proximal ? + + +------+ + + R Palmar arch ? + + +------+ + + L radial ? Proximal ?? 0.34cm ? + + +------+ + + ? Mid ? 0.36cm ? + + +------+ + + ? Distal ? 0.31cm ? Normal flow. ? + + +------+ + + ? Distal ? 0.26cm ? Normal flow. ? + + +------+ + + L Palmar arch ? Complete ? + + +------+ + + * GREYSCALE FINDINGS: Normal right lower extremity venous ultrasound: all segments visualized were compressible with spontaneous and phasic flow. Normal left lower extremity venous ultrasound: all segments visualized were compressible with spontaneous and phasic flow. Electronically signed by: Antonio Almaguer 05/23/2019 16:07 Procedure Note Antonio Almaguer MD - 05/23/2019 Vascular Diagnostic Laboratory [facility], [facility] [address] [place] [id number] Technologist: Guy Estrada Fellow: IMPRESSIONS 1. No evidence of deep or superficial vein thrombosis in the right lower extremity or the left lower extremity. 2. Superficial veins evaluated and measured as below. 3. Reflux in the bilateral greater saphenous veins. PROCEDURE: Vessel mapping for coronary artery bypass; duplex scan of lower extremity veins including responses to compression and other maneuvers. 2D ultrasound, color flow Doppler, spectral Doppler, and vessel mapping. VESSEL MEASUREMENT TABLE: + + +------+ + + Vessel Location AP Observations Comments + + +------+ + + Right GSV Proximal 0.57cm + + +------+ + + Mid thigh 0.46cm + + +------+ + + Mid 0.40cm Reflux. + + +------+ + + Below knee 0.48cm + + +------+ + + Mid calf 0.41cm + + +------+ + + Distal 0.42cm + + +------+ + + Right SSV Proximal + + +------+ + + Left GSV Proximal 0.46cm + + +------+ + + Mid thigh 0.52cm + + +------+ + + Above knee 0.40cm + + +------+ + + Mid 0.42cm Reflux. + + +------+ + + Below knee 0.34cm + + +------+ + + Mid calf 0.30cm Parallel branch. + + +------+ + + Distal 0.33cm + + +------+ + + Left SSV Proximal + + +------+ + + R radial Proximal + + +------+ + + R Palmar arch + + +------+ + + L radial Proximal 0.34cm + + +------+ + + Mid 0.36cm + + +------+ + + Distal 0.31cm Normal flow. + + +------+ + + Distal 0.26cm Normal flow. + + +------+ + + L Palmar arch Complete + + +------+ + + * GREYSCALE FINDINGS: Normal right lower extremity venous ultrasound: all segments visualized were compressible with spontaneous and phasic flow. Normal left lower extremity venous ultrasound: all segments visualized were compressible with spontaneous and phasic flow. Electronically signed by: Tripp Antonio 05/23/2019 16:07 Jessy Inez Hernandez NP IMG US VASCULAR ORD ERABLES * LEFT HEART CATH (05/20/2019 15:07 EDT) Anatomical Region Laterality Modality Other 05/20/2019 15:0 7 EDT Narrative 05/28/2019 13:54 EDT Cardiology [address] [place] [address] Catheterization Laboratory Study Patient: Jose Cheung ?Study Date: ?05/20/2019 ? Accession #: ? [id number] : ? 1950 Referring: Jackie Dallas Pa-C, Do, Tahlia Diagnostic Attending: ??Manuel Bateman Interventional Attending: ?? Manuel Bateman Diagnostic Fellow: Kelly Manrique MD ATTESTATION: I, Dr. Kelly Manrique was the initial author of this report. Dr. Manuel Bateman was present and supervising for the entire procedure. I, Dr. Manuel Bateman have reviewed and agreed with the findings of this report. PROCEDURE PLAN: A diagnostic study was performed without intervention. RESEARCH STUDY: Patient is not enrolled in any research studies. IMPRESSIONS: Severe double vessel coronary artery disease. SUMMARY: 1. HPI and indications: Palpitations, dyspnea, and exertional dyspnea. 2. Coronary arteries: The coronary circulation is right dominant. 3. Left main: Normal. 4. LAD: Large. Minor luminal irregularities. 5. Left circumflex: Mid-vessel lesion: There is an 80% stenosis. 6. Right coronary: Mid-vessel lesion: There is an 80% stenosis. 7. Impressions: Severe double vessel coronary artery disease. RECOMMENDATIONS: ACC recommendation: CABG. HISTORY: Palpitations, dyspnea, and exertional dyspnea. ??Risk factors: ??Former tobacco use. ??Allergies: ??No known allergies. LABS, PRIOR TESTS, PROCEDURES AND SURGERY: Serum potassium (K) of 4.3 mEq/l. ??Serum creatinine (current admission) of 0.95 mg/dl. ??Platelet count of 270 th/ul. ??Hematocrit of 42.9 %. Hemoglobin (pre-procedure) of 14.4 g/dl. STUDY DATA: Study status: ??Cardiac cath: urgent. ??Location: ??Catheterization laboratory. Sex: male. Patient is 68yr old. Height: 167.6cm. Weight: 76.2kg. BSA: 1.9m^2. Procedures performed: ?Right radial artery access. ?Left coronary angiography. ?Right coronary angiography. ANESTHESIA: Conscious sedation for pain control by cardiology staff. PROCEDURE: 1. Initial setup. The patient was brought to the laboratory in the ?? fasting state. A baseline ECG was recorded. Surface ECG leads, ?? automatic cuff blood pressure measurements, and pulse oximetric ?? signals were monitored. 2. Skin preparation. The planned puncture sites were prepped with ?? chlorhexidine and draped in the usual sterile manner. 3. Local anesthesia. Using 2% Lidocaine, local anesthetic was ?? administered to the access site(s). 4. Right radial artery access. A 6 Fr/10/.021 [place] Sheath SLENDER ?? sheath was advanced into the vessel. 5. Selective left coronary angiography. A 6F FL3.5 catheter was advanced ?? into the left coronary vessel ostium under fluoroscopic guidance. ?? Contrast was injected. Images were obtained in multiple projections. 6. Selective right coronary angiography. A 6F FR4 catheter was advanced ?? into the right coronary vessel ostium under fluoroscopic guidance. ?? Contrast was injected. Images were obtained in multiple projections. 7. Right radial artery hemostasis. Mechanical compression was applied. STUDY COMPLETION: The estimated blood loss was 10ml. All catheters inserted during the procedure were removed. The patient tolerated the procedure well and was discharged from the lab. There were no complications. ??Contrast: Isovue 45ml (total dose). ??Isovue 155ml (wasted). ??Fluoroscopy time: 7.3min. ??Fluoroscopy dose: ??19.8cGy. CORONARY ARTERIES: The coronary circulation is right dominant. Left main: ??Normal. LAD: ??Large. Minor luminal irregularities. Left circumflex: ??Large. ??Mid-vessel lesion: There is an 80% stenosis. Right coronary: ??Large. The distal vessel has moderate diffuse disease. Mid-vessel lesion: There is an 80% stenosis. HEMODYNAMICS: There was no gradient across the aortic valve. End diastolic pressure in the left ventricle is normal. 15 mmHg. + + + Stage description ? Condition1:Condition 1 - + + + LV pressure s/ed ? 134/7 ? + + + Arterial pressure s/d (m) 119/58 (85) ? + + + * Aortic valve: + + + Stage description ? Condition1:Condition 1 Thermo + + + Mean gradient ? 13mm Hg ? + + + Peak-peak gradient ? 15mm Hg ? + + + Systolic ejection time 216ms ? + + + * Electronically signed by Manuel Bateman MD 2019-05-28 13:54 Procedure Note Manuel Bateman MD, - 05/28/2019 Cardiology [address] [place] [address] Catheterization Laboratory Study Patient: Jose Cheung Study Date: 05/20/2019 : 1950 Referring: Jackie Dallas Pa-C, Do, Tahlia Diagnostic Attending: Manuel Bateman Interventional Attending: Manuel Bateman Diagnostic Fellow: Kelly Manrique MD ATTESTATION: Dr. Kelly Mccall was the initial author of this report. Dr. Manuel Bateman was present and supervising for the entire procedure. I, Dr. Manuel Bateman have reviewed and agreed with the findings of this report. PROCEDURE PLAN: A diagnostic study was performed without intervention. RESEARCH STUDY: Patient is not enrolled in any research studies. IMPRESSIONS: Severe double vessel coronary artery disease. SUMMARY: 1. HPI and indications: Palpitations, dyspnea, and exertional dyspnea. 2. Coronary arteries: The coronary circulation is right dominant. 3. Left main: Normal. 4. LAD: Large. Minor luminal irregularities. 5. Left circumflex: Mid-vessel lesion: There is an 80% stenosis. 6. Right coronary: Mid-vessel lesion: There is an 80% stenosis. 7. Impressions: Severe double vessel coronary artery disease. RECOMMENDATIONS: ACC recommendation: CABG. HISTORY: Palpitations, dyspnea, and exertional dyspnea. Risk factors: Former tobacco use. Allergies: No known allergies. LABS, PRIOR TESTS, PROCEDURES AND SURGERY: Serum potassium (K) of 4.3 mEq/l. Serum creatinine (current admission) of 0.95 mg/dl. Platelet count of 270 th/ul. Hematocrit of 42.9 %. Hemoglobin (pre-procedure) of 14.4 g/dl. STUDY DATA: Study status: Cardiac cath: urgent. Location: Catheterization laboratory. Sex: male. Patient is 68yr old. Height: 167.6cm. Weight: 76.2kg. BSA: 1.9m^2. Procedures performed: Right radial artery access. Left coronary angiography. Right coronary angiography. ANESTHESIA: Conscious sedation for pain control by cardiology staff. PROCEDURE: 1. Initial setup. The patient was brought to the laboratory in the fasting state. A baseline ECG was recorded. Surface ECG leads, automatic cuff blood pressure measurements, and pulse oximetric signals were monitored. 2. Skin preparation. The planned puncture sites were prepped with chlorhexidine and draped in the usual sterile manner. 3. Local anesthesia. Using 2% Lidocaine, local anesthetic was administered to the access site(s). 4. Right radial artery access. A 6 Fr/10/.021 [place] Sheath SLENDER sheath was advanced into the vessel. 5. Selective left coronary angiography. A 6F FL3.5 catheter was advanced into the left coronary vessel ostium under fluoroscopic guidance. Contrast was injected. Images were obtained in multiple projections. 6. Selective right coronary angiography. A 6F FR4 catheter was advanced into the right coronary vessel ostium under fluoroscopic guidance. Contrast was injected. Images were obtained in multiple projections. 7. Right radial artery hemostasis. Mechanical compression was applied. STUDY COMPLETION: The estimated blood loss was 10ml. All catheters inserted during the procedure were removed. The patient tolerated the procedure well and was discharged from the lab. There were no complications. Contrast: Isovue 45ml (total dose). Isovue 155ml (wasted). Fluoroscopy time: 7.3min. Fluoroscopy dose: 19.8cGy. CORONARY ARTERIES: The coronary circulation is right dominant. Left main: Normal. LAD: Large. Minor luminal irregularities. Left circumflex: Large. Mid-vessel lesion: There is an 80% stenosis. Right coronary: Large. The distal vessel has moderate diffuse disease. Mid-vessel lesion: There is an 80% stenosis. HEMODYNAMICS: There was no gradient across the aortic valve. End diastolic pressure in the left ventricle is normal. 15 mmHg. + + + Stage description Condition1:Condition 1 - + + + LV pressure s/ed 134/7 + + + Arterial pressure s/d (m) 119/58 (85) + + + * Aortic valve: + + + Stage description Condition1:Condition 1 Thermo + + + Mean gradient 13mm Hg + + + Peak-peak gradient 15mm Hg + + + Systolic ejection time 216ms + + + * Electronically signed by Mnauel Bateman MD 2019-05-28 13:54 Nolan Moctezuma MD CARDIAC CATH LORI SMITH * URINE CULTURE IF POSITIVE (05/20/2019 14:35 EDT) Culture if Indicated Culture not indicated by urinalysis results. 05/20/2019 21:43 EDT [facility] Urine specimen (specimen) TOPOGRAPHY UNKNOWN / Unknown 05/20/2019 14:35 EDT 05/20/2019 21:35 EDT Jessy Hernandez NP MICROBIOLOGY - GENE [facility] ORDERABLES [facility] [address] [place] [address] * (ABNORMAL) UA, CHEMICAL AND SEDIMENT ANALYSIS (DIPSTICK AND MICROSCOPIC) (05/20/2019 14:35 EDT) Color, UA Yellow 05/20/2019 21:43 [facility] Clarity, UA Clear 05/20/2019 21:43 [facility] Glucose, UA Neg Neg 05/20/2019 21:43 [facility] Bilirubin, UA Neg Neg 05/20/2019 21:43 [facility] Ketones, UA Neg Neg 05/20/2019 21:43 [facility] Refractometer SG,Urine >1.050(H) 1.001 - 1.035 05/20/2019 21:43 [facility] Comment: Results greater than 1.035 suggest possible interference from glucose or radiographic dye. Blood, UA Trace(A) Neg 05/20/2019 21:43 [facility] pH, UA 6.0 4.6 - 8.0 05/20/2019 21:43 [facility] Protein, UA Trace(A) Neg 05/20/2019 21:43 [facility] Urobilinogen, UA Normal Normal E.U./dl 05/20/2019 21:43 [facility] Nitrite, UA Neg Neg 05/20/2019 21:43 [facility] Leuk Esterase Neg Neg 05/20/2019 21:43 [facility] UA Method Used 05/20/2019 14:34 [facility] Comment: Testing performed using [employer]. Urine RBC Count Automated 3 to 10(A) 0 to 2 /HPF 05/20/2019 21:43 [facility] Urine WBC Count Automated 0 to 3 0 to 3 /HPF 05/20/2019 21:43 [facility] Urine Squamous Epithelial Cell Count, Automated None seen None seen /LPF 05/20/2019 21:43 [facility] Urine Hyaline Casts, Automated < or = 10 < or = 10 /LPF 05/20/2019 21:43 EDT [facility] Urine Bacteria Count, Automated None seen None seen 05/20/2019 21:43 EDT [facility] UA Comment Sediment results 05/20/2019 21:43 EDT [facility] Comment: are unreliable on urines unrefrig >2hrs or refrig >8hrs. Urine specimen (specimen) URINE / Unknown 05/20/2019 14:35 EDT 05/20/2019 21:35 EDT Jessy Hernandez NP URINALYSIS ORDERABL ES Performing Organization Address [facility] Co de Phone Number [facility] [address] [place] [address] * PREPARE RED BLOOD CELLS (05/20/2019 14:34 EDT) Product Code [id number] [facility] Donor Number [id number] [facility] Unit [facility] Unit Rh POS [facility] Unit Status RE^Released From [facility] BLOOD [facility] Product Expiration Date 081080922101 [facility] Unit Blood Type Code 5100 [facility] Coding System [id number] [facility] 05/20/2019 14:3 4 EDT Jessy Hernandez NP BLOOD BANK ORDERABL ES Performing Organization Address City/[facility]/ZIP Co de Phone Number [facility] [address] [place] [address] * PREPARE RED BLOOD CELLS (05/20/2019 14:34 EDT) Product Code [id number] [facility] Donor Number [id number] [facility] Unit [facility] Unit Rh POS [facility] Unit Status RE^Released From [facility] BLOOD [facility] Product Expiration Date 412460540435 [facility] Unit Blood Type Code 5100 [facility] Coding System [id number] [facility] Blood specimen (specimen) 05/20/2019 14:34 EDT Jessy Wiley David [facility] BLOOD BANK ORDERABL ES [facility] [address] [place] [address] * ECHOCARDIOGRAM LIMITED (05/20/2019 10:31 EDT) Anatomical Region Laterality Modality Other 05/20/2019 10:3 1 EDT Narrative 05/20/2019 10:59 EDT *Interpreting Group:* *[facility]* [address] [address] Date of study: 05/20/2019 Transthoracic Echocardiography M-mode, limited 2D, and IV contrast *STUDY CONCLUSIONS* Summary: 1. Left ventricle: The cavity size was normal. Wall thickness was ?? normal. Systolic function was normal. The estimated ejection fraction ?? was 60-65%. Wall motion was normal; there were no regional wall ?? motion abnormalities. 2. Right ventricle: The cavity size was normal. Wall thickness was ?? normal. Systolic function was normal. 3. Atrial septum: Agitated saline contrast study showed no blozq-ix-uzbb ?? atrial level shunt, at baseline. *PATIENT PRESENTATION* Height: ? 167.6cm (66in ) S/D Pressure: 125 / 66 Weight: ? 76.2kg (167.7lb ) BSA: ?1.9m^2 Test start time: ??10:03 AM. Test stop time: ??10:11 AM. ADMITTING ?Anjum Pascual MD ATTENDING ?Simona Hamilton MD REFERRING ?Lorrie Conte ENERGY CONSERVATION ENGINEER ??Emily Liriano PERFORMING ?? [facility], FELLOW ? Essence Wang ORDERING ? Noelle Frias Do REFERRING ?Noelle Frias Do *PROCEDURE DATA* Procedure information: ??The patient was identified by two identifiers. This study was interpreted by [facility]. Pertinent images and digital data are archived for permanent storage and are available for subsequent review. ??Study status: Routine. Transthoracic echocardiography. ??M-mode, limited 2D, and intravenous contrast injection. A Transthoracic Echocardiogram was performed. Scanning was performed from the parasternal, apical, and subcostal acoustic windows. Images were obtained using an Epiq 18 cardiac ultrasound machine. Image quality was adequate. Intravenous contrast (normal saline) was administered. A total amount of 6ml of saline was used. The saline was administered by MR-R Nurse . ??Study completion: ??The patient tolerated the procedure well. There were no complications. *INDICATIONS AND HISTORY* Indications: ?? Acute diastolic CHF (I50.31), known, pre-procedure. *CARDIAC ANATOMY* Left ventricle: ??The cavity size was normal. Wall thickness was normal. Systolic function was normal. The estimated ejection fraction was 60-65%. Wall motion was normal; there were no regional wall motion abnormalities. Mitral valve: ?? Mildly thickened leaflets. Left atrium: ??The atrium was normal in size. Atrial septum: ??Agitated saline contrast study showed no xqrnj-ub-bevi atrial level shunt, at baseline. Right ventricle: ??The cavity size was normal. Wall thickness was normal. Systolic function was normal. Right atrium: ??The atrium was normal in size. Pericardium: ??There was no pericardial effusion. Measurements Left ventricle ? Value ?Reference LV ID, ED, PLAX ?5.1 ?? cm 3.5 - 6.0 LV ID, ES, PLAX ?3.2 ?? cm 2.1 - 4.0 LV PW thickness, ED, PLAX ?0.8 ?? cm --------- LV end-diastolic volume, 1-p A2C ? 74 ?ml --------- LV ejection fraction, 1-p A2C ?69 ?% ??--------- LV end-diastolic volume, 1-p A4C ? 73 ?ml --------- LV ejection fraction, 1-p A4C ?66 ?% ??--------- Ventricular septum ? Value ?Reference IVS thickness, ED, PLAX ?0.8 ?? cm --------- Legend: (L) ??and ??(H) ??berry values outside specified reference range. I have personally reviewed the images and have reviewed and edited the reported findings. Electronically signed by Jonny Paez MD 05/20/2019 10:59 Procedure Note Jonny Paez MD, MD - 05/20/2019 *Interpreting Group:* *[facility]* [address] [place] [address] Date of study: 05/20/2019 Transthoracic Echocardiography M-mode, limited 2D, and IV contrast *STUDY CONCLUSIONS* Summary: 1. Left ventricle: The cavity size was normal. Wall thickness was normal. Systolic function was normal. The estimated ejection fraction was 60-65%. Wall motion was normal; there were no regional wall motion abnormalities. 2. Right ventricle: The cavity size was normal. Wall thickness was normal. Systolic function was normal. 3. Atrial septum: Agitated saline contrast study showed no prujh-ar-xjzc atrial level shunt, at baseline. *PATIENT PRESENTATION* Height: 167.6cm (66in ) S/D Pressure: 125 / 66 Weight: 76.2kg (167.7lb ) BSA: 1.9m^2 Test start time: 10:03 AM. Test stop time: 10:11 AM. ADMITTING Anjum Pascual MD ATTENDING Simona Hamilton MD REFERRING Lorrie Conte ENERGY CONSERVATION ENGINEER Emily Liriano PERFORMING [employer], FELLOW Essence Wang ORDERING Noelle Frias Do REFERRING Noelle Frias Do *PROCEDURE DATA* Procedure information: The patient was identified by two identifiers. This study was interpreted by [facility]. Pertinent images and digital data are archived for permanent storage and are available for subsequent review. Study status: Routine. Transthoracic echocardiography. M-mode, limited 2D, and intravenous contrast injection. A Transthoracic Echocardiogram was performed. Scanning was performed from the parasternal, apical, and subcostal acoustic windows. Images were obtained using an [employer] 18 cardiac ultrasound machine. Image quality was adequate. Intravenous contrast (normal saline) was administered. A total amount of 6ml of saline was used. The saline was administered by MR-R Nurse . Study completion: The patient tolerated the procedure well. There were no complications. *INDICATIONS AND HISTORY* Indications: Acute diastolic CHF (I50.31), known, pre-procedure. *CARDIAC ANATOMY* Left ventricle: The cavity size was normal. Wall thickness was normal. Systolic function was normal. The estimated ejection fraction was 60-65%. Wall motion was normal; there were no regional wall motion abnormalities. Mitral valve: Mildly thickened leaflets. Left atrium: The atrium was normal in size. Atrial septum: Agitated saline contrast study showed no [id number] atrial level shunt, at baseline. Right ventricle: The cavity size was normal. Wall thickness was normal. Systolic function was normal. Right atrium: The atrium was normal in size. Pericardium: There was no pericardial effusion. Measurements Left ventricle Value Reference LV ID, ED, PLAX 5.1 cm 3.5 - 6.0 LV ID, ES, PLAX 3.2 cm 2.1 - 4.0 LV PW thickness, ED, PLAX 0.8 cm --------- LV end-diastolic volume, 1-p A2C 74 ml --------- LV ejection fraction, 1-p A2C 69 % --------- LV end-diastolic volume, 1-p A4C 73 ml --------- LV ejection fraction, 1-p A4C 66 % --------- Ventricular septum Value Reference IVS thickness, ED, PLAX 0.8 cm --------- Legend: (L) and (H) berry values outside specified reference range. I have personally reviewed the images and have reviewed and edited the reported findings. Electronically signed by Jonny Paez MD 05/20/2019 10:59 Noelle Frias DO CARDIAC ECHO ORDERA BLES * INPATIENT ADD-ON (05/20/2019 7:50 EDT) Tests to be added ALK PHOS,ALT,A ST,TOTAL BILI 05/20/2019 7:47 EDT [facility] Number for problems [id number] 05/20/2019 8:03 EDT [facility] Accession number [id number] 05/20/2019 8:03 EDT [facility] TOPOGRAPHY UNKNOWN / Unknown 05/20/2019 7:50 EDT 05/20/2019 8:03 EDT Noelle Frias DO HEMATOLOGY & PF4 OR DERABLES Performing Organization Address City/[facility]/ZIP Co de Phone Number [facility] [address] [place] [address] * BILIRUBIN, TOTAL (05/20/2019 5:37 EDT) Bilirubin, Total 1.1 <1.4 mg/dl 05/20/2019 9:44 EDT [facility] BLOOD SPECIMEN / Unknown 05/20/2019 5:37 EDT 05/20/2019 5:56 EDT Rosio Treviño MD CHEMISTRY & BLOOD GA S ORDERABLES Performing Organization Address [facility]/ZIP Co de Phone Number [facility] [address] [place] [address] * AST (05/20/2019 5:37 EDT) AST 35 15 - 46 U/L 05/20/2019 9:44 EDT [facility] BLOOD SPECIMEN / Unknown 05/20/2019 5:37 EDT 05/20/2019 5:56 EDT Rosio Treviño MD CHEMISTRY & BLOOD GA S ORDERABLES Performing Organization Address City/[facility] Co de Phone Number [facility] [address] [place] [address] * ALT (05/20/2019 5:37 EDT) ALT 33 <50 U/L 05/20/2019 9:44 EDT [facility] BLOOD SPECIMEN / Unknown 05/20/2019 5:37 EDT 05/20/2019 5:56 EDT Rosio Treviño MD CHEMISTRY & BLOOD GA S ORDERABLES Performing Organization Address [facility] Co de Phone Number [facility] [address] [place] [address] * ALKALINE PHOSPHATASE (05/20/2019 5:37 EDT) Total Alkaline Phosphatase 62 38 - 126 U/L 05/20/2019 9:44 EDT [facility] BLOOD SPECIMEN / Unknown 05/20/2019 5:37 EDT 05/20/2019 5:56 EDT Rosio Treviño MD CHEMISTRY & BLOOD GA S ORDERABLES Performing Organization Address [facility] Co de Phone Number [facility] [address] [place] [address] * MAGNESIUM (05/20/2019 5:37 EDT) Magnesium 2.2 1.7 - 2.8 mg/dl 05/20/2019 6:39 EDT [facility] Blood specimen (specimen) BLOOD SPECIMEN / Unknown 05/20/2019 5:37 EDT 05/20/2019 5:56 EDT Rosio Treviño MD CHEMISTRY & BLOOD GA S ORDERABLES Performing Organization Address City/[facility]/ZIP Co de Phone Number [facility] [address] [place] [address] * INPATIENT ADD-ON (05/19/2019 7:35 EDT) Tests to be added ELECTROLYT ES,CREATIN INE,CBC 05/19/2019 7:35 EDT [facility] Number for problems [id number] 05/19/2019 7:50 EDT [facility] Accession number [id number] 05/19/2019 7:50 EDT [facility] TOPOGRAPHY UNKNOWN / Unknown 05/19/2019 7:35 EDT 05/19/2019 7:50 EDT Simnoa Hamilton MD HEMATOLOGY & PF4 ORDERABLES Performing Organization Address [facility] Co de Phone Number [facility] [address] [place] [address] * ELECTROLYTES (05/19/2019 6:18 EDT) Sodium 138 136 - 145 mEq/L 05/19/2019 9:13 EDT [facility] Potassium 4.3 3.5 - 5.0 mEq/L 05/19/2019 9:13 T [facility] Comment: Interpret results with caution. Prolonged sample storage may alter result. Chloride 102 96 - 110 mEq/L 05/19/2019 9:13 EDT [facility] CO2 29 22 - 32 mEq/L 05/19/2019 9:13 T [facility] Comment: Interpret results with caution. Prolonged sample storage may alter result. BLOOD SPECIMEN / Unknown 05/19/2019 6:18 EDT 05/19/2019 7:35 EDT Simona Hamilton MD CHEMISTRY & B LOOD GAS ORDERABLES Performing Organization Address City/[facility]/ZIP Co de Phone Number [facility] [address] [place] [address] * CREATININE (05/19/2019 6:18 EDT) Creatinine 0.95 0.66 - 1.25 mg/dl 05/19/2019 9:13 [facility] GFR, Calculated 82 >60 ml/min/1.7 3m2 05/19/2019 9:13 [facility] Comment: eGFR calculated using CKD-EPI equation for non Americans. Multiply eGFR by 1.16 for Americans. BLOOD SPECIMEN / Unknown 05/19/2019 6:18 EDT 05/19/2019 7:35 EDT Simona Hamilton MD CHEMISTRY & B LOOD GAS ORDERABLES [facility] [address] [place] [address] * (ABNORMAL) COMPLETE BLOOD COUNT (05/19/2019 6:18 EDT) WBC 5.57 4.0 - 10.4 K/cmm 05/19/2019 7:53 [facility] RBC 4.63 4.36 - 5.78 M/cmm 05/19/2019 7:53 [facility] Hemoglobin 14.4 13.8 - 17.3 gm/dl 05/19/2019 7:53 [facility] HCT 42.9 39.5 - 50.2 % 05/19/2019 7:53 [facility] MCV 93 81 - 95 fl 05/19/2019 7:53 [facility] MCH 31.1 27.6 - 33.0 pg 05/19/2019 7:53 [facility] MCHC 33.6 32.8 - 36.4 gm/dl 05/19/2019 7:53 [facility] RDW-CV 14.6(H) <14.2 % 05/19/2019 7:53 [facility] RDW-SD 49.4(H) <46.0 fl 05/19/2019 7:53 [facility] PLT 270 141 - 377 K/cmm 05/19/2019 7:53 [facility] MPV 10.9 9.5 - 12.7 fl 05/19/2019 7:53 EDT [facility] BLOOD SPECIMEN / Unknown 05/19/2019 6:18 EDT 05/19/2019 7:35 EDT Simona Hamilton MD HEMATOLOGY & PF4 ORDERABLES Performing Organization Address [facility]/ZIP Co de Phone Number [facility] [address] [place] [address] * HOLD SST (05/19/2019 6:18 EDT) Hold SST Hold for further testing. Specimen will be held for 5 days. 05/19/2019 7:35 EDT [facility] BLOOD SPECIMEN / Unknown 05/19/2019 6:18 EDT 05/19/2019 7:35 EDT Simona Hamilton MD LAB INFO SERV ICE AND SUPPORT & PHONE RESULT Performing Organization Address [facility]/ZIP Co de Phone Number [facility] [address] [place] [address] * HOLD LAVENDER TOP (05/19/2019 6:18 EDT) Hold Purple Top EDTA for hematology will be discarded after 48 hours, differential not available after 12 hours. 05/19/2019 7:35 EDT [facility] BLOOD SPECIMEN / Unknown 05/19/2019 6:18 EDT 05/19/2019 7:35 EDT Simona Hamilton MD LAB INFO SERV ICE AND SUPPORT & PHONE RESULT Performing Organization Address City/[facility]/ZIP Co de Phone Number [facility] [address] [place] [address] * MAGNESIUM (05/19/2019 6:18 EDT) Magnesium 2.3 1.7 - 2.8 mg/dl 05/19/2019 7:38 EDT [facility] Blood specimen (specimen) BLOOD SPECIMEN / Unknown 05/19/2019 6:18 EDT 05/19/2019 7:04 EDT Rosio Treviño MD CHEMISTRY & BLOOD GA S ORDERABLES [facility] [address] [place] [address] * (ABNORMAL) COMPLETE BLOOD COUNT (05/18/2019 5:43 EDT) WBC 7.19 4.0 - 10.4 K/cmm 05/18/2019 6:04 EDT [facility] RBC 4.79 4.36 - 5.78 M/cmm 05/18/2019 6:04 [facility] Hemoglobin 15.1 13.8 - 17.3 gm/dl 05/18/2019 6:04 [facility] HCT 43.8 39.5 - 50.2 % 05/18/2019 6:04 [facility] MCV 91 81 - 95 fl 05/18/2019 6:04 [facility] MCH 31.5 27.6 - 33.0 pg 05/18/2019 6:04 [facility] MCHC 34.5 32.8 - 36.4 gm/dl 05/18/2019 6:04 [facility] RDW-CV 14.6(H) <14.2 % 05/18/2019 6:04 [facility] RDW-SD 48.5(H) <46.0 fl 05/18/2019 6:04 [facility] PLT 277 141 - 377 K/cmm 05/18/2019 6:04 [facility] MPV 10.2 9.5 - 12.7 fl 05/18/2019 6:04 [facility] Blood specimen (specimen) BLOOD SPECIMEN / Unknown 05/18/2019 5:43 EDT 05/18/2019 5:58 EDT Long Salmon MD HEMATOLOGY & PF4 OR DERABLES [facility] [address] [place] [address] * MAGNESIUM (05/18/2019 5:43 EDT) Magnesium 2.2 1.7 - 2.8 mg/dl 05/18/2019 6:35 EDT [facility] Blood specimen (specimen) BLOOD SPECIMEN / Unknown 05/18/2019 5:43 EDT 05/18/2019 5:58 EDT Rosio Treviño MD CHEMISTRY & BLOOD GA S ORDERABLES Performing Organization Address City/[facility] Co de Phone Number [facility] [address] [place] [address] * CREATININE (05/18/2019 5:43 EDT) Creatinine 1.02 0.66 - 1.25 mg/dl 05/18/2019 6:35 EDT [facility] GFR, Calculated 75 >60 ml/min/1.7 3m2 05/18/2019 6:35 EDT [facility] Comment: eGFR calculated using CKD-EPI equation for non Americans. Multiply eGFR by 1.16 for Americans. Blood specimen (specimen) BLOOD SPECIMEN / Unknown 05/18/2019 5:43 EDT 05/18/2019 5:58 EDT Rosio Treviño MD CHEMISTRY & BLOOD GA S ORDERABLES Performing Organization Address City/[facility]/ZIP Co de Phone Number [facility] [address] [place] [address] * ELECTROLYTES (05/18/2019 5:43 EDT) Sodium 138 136 - 145 mEq/L 05/18/2019 6:35 EDT [facility] Potassium 4.2 3.5 - 5.0 mEq/L 05/18/2019 6:35 T [facility] Chloride 102 96 - 110 mEq/L 05/18/2019 6:35 EDT [facility] CO2 32 22 - 32 mEq/L 05/18/2019 6:35 EDT [facility] Blood specimen (specimen) BLOOD SPECIMEN / Unknown 05/18/2019 5:43 EDT 05/18/2019 5:58 EDT Rosio Treviño MD CHEMISTRY & BLOOD GA S ORDERABLES [facility] [address] [place] [address] * CT CHEST WO CONTRAST (05/17/2019 10:52 EDT) Anatomical Region Laterality Modality Other 05/17/2019 10:5 2 EDT 05/17/2019 13:14 EDT Narrative 05/17/2019 13:[address] CHEST WO CONTRAST ??05/17/2019 10:52 AM Clinical History/Comments: Dyspnea; concerning for intrinsic lung disease versus pulmonary edema Technique: A single breath-hold helical CT acquisition was performed through the chest on a multidetector-row scanner with a reconstructed slice thickness of 3 mm and retrospectively reconstructed 0.9 mm thick sections with 0.45 mm overlapping intervals. ??The scans were obtained from the lung apices through the bases without IV contrast. ?? Scans were reviewed on a dedicated PACS workstation for analysis. Exam description: CT of the chest without IV contrast Comparison: Chest x-ray 05/06/2019 Findings: Lower neck: No acute abnormality. Chest wall soft tissues: No acute abnormality. Mediastinum and rosario: There is a 1.2 cm right paratracheal lymph node with a fatty hilum. There is no concerning adenopathy. The esophagus appears normal. Heart and mediastinal vasculature (evaluated without IV contrast): ?? There is coronary artery atherosclerosis. Large airways: ??Mild diffuse thickening. Lungs: ??There are bandlike opacities in the right lower lung and left lower lung which likely represent areas of scarring versus atelectasis. A triangular shaped pulmonary nodule in the right lower lobe (series 201, axial #68) likely represents a lymph node. No significant interlobular septal thickening is identified to suggest pulmonary edema. Scattered tiny nodules are seen throughout the lungs, likely inflammatory. Pleura: No abnormalities. Upper abdomen (limited to upper abdomen, not optimized for abdominal imaging): No abnormalities. Bones: ??No significant abnormalities. Flowing bridging anterior osteophytes are seen throughout the thoracic spine consistent with DISH. Impression: 1. ??Bandlike opacities in the lower lobes likely represent atelectasis versus scarring. No pulmonary edema or interstitial lung disease is identified. 2. ??Scattered tiny pulmonary nodules likely inflammatory. I have personally reviewed the images and the above interpretation and agree with the findings. Procedure Note Javid Sanchez MD, MD - 05/17/2019 CT CHEST WO CONTRAST 05/17/2019 10:52 AM Clinical History/Comments: Dyspnea; concerning for intrinsic lung disease versus pulmonary edema Technique: A single breath-hold helical CT acquisition was performed through the chest on a multidetector-row scanner with a reconstructed slice thickness of 3 mm and retrospectively reconstructed 0.9 mm thick sections with 0.45 mm overlapping intervals. The scans were obtained from the lung apices through the bases without IV contrast. Scans were reviewed on a dedicated PACS workstation for analysis. Exam description: CT of the chest without IV contrast Comparison: Chest x-ray 05/06/2019 Findings: Lower neck: No acute abnormality. Chest wall soft tissues: No acute abnormality. Mediastinum and rosario: There is a 1.2 cm right paratracheal lymph node with a fatty hilum. There is no concerning adenopathy. The esophagus appears normal. Heart and mediastinal vasculature (evaluated without IV contrast): There is coronary artery atherosclerosis. Large airways: Mild diffuse thickening. Lungs: There are bandlike opacities in the right lower lung and left lower lung which likely represent areas of scarring versus atelectasis. A triangular shaped pulmonary nodule in the right lower lobe (series 201, axial #68) likely represents a lymph node. No significant interlobular septal thickening is identified to suggest pulmonary edema. Scattered tiny nodules are seen throughout the lungs, likely inflammatory. Pleura: No abnormalities. Upper abdomen (limited to upper abdomen, not optimized for abdominal imaging): No abnormalities. Bones: No significant abnormalities. Flowing bridging anterior osteophytes are seen throughout the thoracic spine consistent with DISH. Impression: 1. Bandlike opacities in the lower lobes likely represent atelectasis versus scarring. No pulmonary edema or interstitial lung disease is identified. 2. Scattered tiny pulmonary nodules likely inflammatory. I have personally reviewed the images and the above interpretation and agree with the findings. Addison Murry MD IMG CT ORDERABLES * (ABNORMAL) COMPLETE BLOOD COUNT (05/17/2019 6:33 EDT) WBC 6.61 4.0 - 10.4 K/cmm 05/17/2019 7:19 [facility] RBC 4.90 4.36 - 5.78 M/cmm 05/17/2019 7:19 [facility] Hemoglobin 15.3 13.8 - 17.3 gm/dl 05/17/2019 7:19 [facility] HCT 45.6 39.5 - 50.2 % 05/17/2019 7:19 [facility] MCV 93 81 - 95 fl 05/17/2019 7:19 [facility] MCH 31.2 27.6 - 33.0 pg 05/17/2019 7:19 [facility] MCHC 33.6 32.8 - 36.4 gm/dl 05/17/2019 7:19 [facility] RDW-CV 14.6(H) <14.2 % 05/17/2019 7:19 [facility] RDW-SD 49.5(H) <46.0 fl 05/17/2019 7:19 [facility] PLT 282 141 - 377 K/cmm 05/17/2019 7:19 [facility] MPV 10.7 9.5 - 12.7 fl 05/17/2019 7:19 [facility] Blood specimen (specimen) BLOOD SPECIMEN / Unknown 05/17/2019 6:33 EDT 05/17/2019 6:48 EDT Long Salmon MD HEMATOLOGY & PF4 OR DERABLES [facility] [address] [place] [address] * MAGNESIUM (05/17/2019 6:33 EDT) Magnesium 2.1 1.7 - 2.8 mg/dl 05/17/2019 7:28 [facility] Blood specimen (specimen) BLOOD SPECIMEN / Unknown 05/17/2019 6:33 EDT 05/17/2019 6:48 EDT Rosio Treviño MD CHEMISTRY & BLOOD GA S ORDERABLES [facility] [address] [place] [address] * CREATININE (05/17/2019 6:33 EDT) Creatinine 1.12 0.66 - 1.25 mg/dl 05/17/2019 7:28 EDT [facility] GFR, Calculated 67 >60 ml/min/1.7 3m2 05/17/2019 7:28 EDT [facility] Comment: eGFR calculated using CKD-EPI equation for non Americans. Multiply eGFR by 1.16 for Americans. Blood specimen (specimen) BLOOD SPECIMEN / Unknown 05/17/2019 6:33 EDT 05/17/2019 6:48 EDT oRsio Treviño MD CHEMISTRY & BLOOD GA S ORDERABLES Performing Organization Address [facility] Co de Phone Number [facility] [address] [place] [address] * ELECTROLYTES (05/17/2019 6:33 EDT) Sodium 136 136 - 145 mEq/L 05/17/2019 7:28 EDT [facility] Potassium 4.5 3.5 - 5.0 mEq/L 05/17/2019 7:28 EDT [facility] Chloride 99 96 - 110 mEq/L 05/17/2019 7:28 T [facility] CO2 30 22 - 32 mEq/L 05/17/2019 7:28 EDT [facility] Blood specimen (specimen) BLOOD SPECIMEN / Unknown 05/17/2019 6:33 EDT 05/17/2019 6:48 EDT Rosio Treviño MD CHEMISTRY & BLOOD GA S ORDERABLES [facility] [address] [place] [address] * MAGNESIUM (05/16/2019 6:18 EDT) Magnesium 2.2 1.7 - 2.8 mg/dl 05/16/2019 7:24 EDT [facility] Blood specimen (specimen) BLOOD SPECIMEN / Unknown 05/16/2019 6:18 EDT 05/16/2019 6:42 EDT Rosio Treviño MD CHEMISTRY & BLOOD GA S ORDERABLES Performing Organization Address City/[facility] Co de Phone Number [facility] [address] [place] [address] * CREATININE (05/16/2019 6:18 EDT) Creatinine 1.11 0.66 - 1.25 mg/dl 05/16/2019 7:24 EDT [facility] GFR, Calculated 68 >60 ml/min/1.7 3m2 05/16/2019 7:24 EDT [facility] Comment: eGFR calculated using CKD-EPI equation for non Americans. Multiply eGFR by 1.16 for Americans. Blood specimen (specimen) BLOOD SPECIMEN / Unknown 05/16/2019 6:18 EDT 05/16/2019 6:42 EDT Rosio Treviño MD CHEMISTRY & BLOOD GA S ORDERABLES Performing Organization Address City/[facility]/ZIP Co de Phone Number [facility] [address] [place] [address] * ELECTROLYTES (05/16/2019 6:18 EDT) Sodium 139 136 - 145 mEq/L 05/16/2019 7:24 EDT [facility] Potassium 4.3 3.5 - 5.0 mEq/L 05/16/2019 7:24 EDT [facility] Chloride 100 96 - 110 mEq/L 05/16/2019 7:24 EDT [facility] CO2 32 22 - 32 mEq/L 05/16/2019 7:24 EDT [facility] Blood specimen (specimen) BLOOD SPECIMEN / Unknown 05/16/2019 6:18 EDT 05/16/2019 6:42 EDT Rosio Treviño MD CHEMISTRY & BLOOD GA S ORDERABLES Performing Organization Address [facility]/ZIP Co de Phone Number [facility] [address] [place] [address] * SYPHILIS SEROLOGY (05/16/2019 6:18 EDT) Pathologist [facility] Syphilis Serology Negative 05/16/2019 10:38 EDT [facility] Comment:Reference Range: Neg ative Blood specimen (specimen) BLOOD SPECIMEN / Unknown 05/16/2019 6:18 EDT 05/16/2019 6:42 EDT Long Salmon MD IMMUNOLOGY AND SERO LOGY ORDERABLES Performing Organization Address [facility] Co de Phone Number [facility] [address] [place] [address] * (ABNORMAL) HIV 1 RNA QUANTITATION (05/16/2019 6:18 EDT) [facility] HIV 1 RNA Quant 386(A) Undetected copies/mL 05/16/2019 15:35 EDT [facility] Comment: Reference Range: ??Undetected The quantification range of this assay is 20 to 10,000,000 copies/mL Testing was performed by the [employer] TaqMan HIV-1 Test Version 2.0 ([employer] BLOOD SPECIMEN / Unknown 05/16/2019 6:18 EDT 05/16/2019 6:42 EDT Long Salmon MD CHEMISTRY & BLOOD G ORDERABLES Performing Organization Address [facility] Co de Phone Number [facility] [address] [place] [address] * (ABNORMAL) IMMUNODEFICIENCY PANEL (05/16/2019 6:18 EDT) Pathologist [facility] CD3 77 62 - 87 % 05/16/2019 14:25 EDT [facility] CD4 17(L) 35 - 63 % 05/16/2019 14:25 [facility] CD8 57(H) 10 - 35 % 05/16/2019 14:25 [facility] Absolute CD4 616 329 - 1,427 cells/uL 05/16/2019 14:25 [facility] Comment:Reviewed by Dr. Sheyla Nolan BLOOD SPECIMEN / Unknown 05/16/2019 6:18 EDT 05/16/2019 6:42 EDT Long Salmon MD IMMUNOLOGY AND SERO LOGY ORDERABLES [facility] [address] [place] [address] * (ABNORMAL) COMPLETE BLOOD COUNT AND DIFFERENTIAL (05/16/2019 6:18 EDT) WBC 6.79 4.0 - 10.4 K/cmm 05/16/2019 6:53 [facility] RBC 4.98 4.36 - 5.78 M/cmm 05/16/2019 6:53 [facility] Hemoglobin 15.4 13.8 - 17.3 gm/dl 05/16/2019 6:53 [facility] HCT 44.4 39.5 - 50.2 % 05/16/2019 6:53 [facility] MCV 89 81 - 95 fl 05/16/2019 6:53 [facility] MCH 30.9 27.6 - 33.0 pg 05/16/2019 6:53 [facility] MCHC 34.7 32.8 - 36.4 gm/dl 05/16/2019 6:53 [facility] RDW-CV 14.4(H) <14.2 % 05/16/2019 6:53 [facility] RDW-SD 46.8(H) <46.0 fl 05/16/2019 6:53 [facility] PLT 281 141 - 377 K/cmm 05/16/2019 6:53 [facility] MPV 10.4 9.5 - 12.7 fl 05/16/2019 6:53 T [facility] % Neutrophils 35.1 % 05/16/2019 6:53 [facility] % Lymphocytes 52.6 % 05/16/2019 6:53 [facility] % Monocytes 8.1 % 05/16/2019 6:53 [facility] % Eosinophils 2.9 % 05/16/2019 6:53 [facility] % Basophils 1.0 % 05/16/2019 6:53 [facility] % Immature Grans 0.3 % 05/16/2019 6:53 [facility] ABS Neutrophils 2.38 2.20 - 8.85 K/cmm 05/16/2019 6:53 [facility] ABS Lymphs 3.57(H) 1.09 - 3.30 K/cmm 05/16/2019 6:53 [facility] ABS Monocytes 0.55 0.1 - 0.8 K/cmm 05/16/2019 6:53 [facility] ABS Eosinophils 0.20 0.03 - 0.61 K/cmm 05/16/2019 6:53 [facility] ABS Basophils 0.07 0.01 - 0.11 K/cmm 05/16/2019 6:53 [facility] ABS Immature Grans 0.02 0 - 0.06 K/cmm 05/16/2019 6:53 [facility] Type of Diff: Automated 05/16/2019 6:53 [facility] Blood specimen (specimen) BLOOD SPECIMEN / Unknown 05/16/2019 6:18 EDT 05/16/2019 6:42 EDT Long Salmon MD PACKAGES & DNA PROB E ORDERABLES [facility] [address] [place] [address] * SI JOINTS 3 OR MORE VIEWS (05/15/2019 13:29 EDT) Anatomical Region Laterality Modality Other 05/15/2019 13:2 9 EDT 05/15/2019 14:10 EDT Narrative 05/15/2019 14:10 EDT SI JOINTS 3 OR MORE VIEWS05/15/2019 1:29 PM SIGNS & SYMPTOMS / COMMENTS: eval for sacroiliitis sacroiliac joint tenderness, inflammatory back pain, ?? COMPARISON: None TECHNIQUE: AP and oblique views of bilateral sacroiliac joints were obtained. FINDINGS: No evidence of fractures or dislocation. Both SI joints are unremarkable. There is no evidence of bone erosion, sclerosis or joint space narrowing or fusion to suggest sacroiliitis. Bones and soft tissues are otherwise unremarkable. IMPRESSION: No evidence of sacroiliitis. I have personally reviewed the images and the above interpretation and agree with the findings. Procedure Note Vishnu Messina MD, - 05/15/2019 SI JOINTS 3 OR MORE VIEWS05/15/2019 1:29 PM SIGNS & SYMPTOMS / COMMENTS: eval for sacroiliitis sacroiliac joint tenderness, inflammatory back pain, COMPARISON: None TECHNIQUE: AP and oblique views of bilateral sacroiliac joints were obtained. FINDINGS: No evidence of fractures or dislocation. Both SI joints are unremarkable. There is no evidence of bone erosion, sclerosis or joint space narrowing or fusion to suggest sacroiliitis. Bones and soft tissues are otherwise unremarkable. IMPRESSION: No evidence of sacroiliitis. I have personally reviewed the images and the above interpretation and agree with the findings. Rosio Treviño MD IMG DIAGNOSTIC IMAGI NG ORDERABLES * TRANSESOPHAGEAL ECHO (DUGLAS) (05/15/2019 10:18 EDT) Anatomical Region Laterality Modality Other 05/15/2019 10:1 8 EDT Narrative 05/15/2019 11:52 EDT *Interpreting Group:* *[facility]* [address] [place] [id number] Date of study: 05/15/2019 Transesophageal Echocardiography 2D, spectral Doppler, and color Doppler *STUDY CONCLUSIONS* Impressions: ??Severe aortic regurgitation. There was no evidence of endocarditis. Summary: 1. Left ventricle: The cavity size was normal. Wall thickness was ?? normal. Systolic function was normal. The estimated ejection fraction ?? was 55-60%. Wall motion was normal; there were no regional wall ?? motion abnormalities. 2. Right ventricle: The cavity size was normal. Wall thickness was ?? normal. Systolic function was normal. 3. Aortic valve: Trileaflet; mildly thickened leaflets. There was an ?? eccentric jet of severe regurgitation directed towards the mitral ?? anterior leaflet. Severity was suggested by diastolic flow reversal ?? in the ascending aorta. *PATIENT PRESENTATION* Height: ? 167.6cm (66in ) S/D Pressure: 120 / 64 Weight: ? 75kg (165lb ) BSA: ?1.88m^2 ADMITTING ?? Anjum Pascual MD ATTENDING ?? Simona Hamilton MD REFERRING ?? Lorrie Conte PERFORMING ??[employer], [place] FELLOW ?Essence Wang ORDERING ?Noelle Frias Do REFERRING ?? Noelle Frias Do *PROCEDURE DATA* Procedure information: ??Dr. Jose Stauffer supervised and was present for the performance of the entire procedure. This study was interpreted by [facility]. Pertinent images and digital data are archived for permanent storage and are available for subsequent review. ??Study status: ??Routine. Diagnostic transesophageal echocardiography. ??2D, spectral Doppler, and color Doppler. ??Consent: ??The risks, benefits, and alternatives to the procedure were explained to the patient and consent was verbally obtained. ??Barriers to education: ??No barriers to education identified. Initial setup. The patient was brought to the laboratory in the fasting state. Surface ECG leads, blood pressure measurements, and pulse oximetric signals were monitored. Sedation. Moderate sedation was administered . A Transesophageal echocardiogram was performed. Topical anesthesia was obtained using viscous lidocaine. A Multiplane 3D transesophageal probe [facility]. Images were obtained using an [employer] 9 cardiac ultrasound machine. Image quality was excellent. The transesophageal probe was removed. ??Study completion: ??The patient tolerated the procedure well. There was no blood loss or specimens removed during the procedure. There were no complications. ??Administered medications: ?? Fentanyl, 50mcg, IV. Midazolam, 3mg, IV. *CARDIAC ANATOMY* Left ventricle: ??The cavity size was normal. Wall thickness was normal. Systolic function was normal. The estimated ejection fraction was 55-60%. Wall motion was normal; there were no regional wall motion abnormalities. Aortic valve: ?? Trileaflet; mildly thickened leaflets. Cusp separation was normal. ??No evidence of vegetation. ??Doppler: ?? There was no stenosis. ?? There was an eccentric jet of severe regurgitation directed towards the mitral anterior leaflet. Severity was suggested by diastolic flow reversal in the ascending aorta. Aorta: ??There was no atheroma. There was no evidence for dissection. Aortic root: The aortic root was not dilated. Ascending aorta: The ascending aorta was normal in size. Aortic arch: The aortic arch was normal in size. Descending aorta: The descending aorta was normal in size. Mitral valve: ?? Structurally normal valve. ?? Leaflet separation was normal. ??No evidence of vegetation. ??Doppler: ?? There was no evidence for stenosis. ?? There was trivial regurgitation. Left atrium: ??The atrium was normal in size. ??No evidence of thrombus in the atrial cavity or appendage. The appendage was morphologically a left appendage, multilobulated, and of normal size. Atrial septum: ??No defect or patent foramen ovale was identified. There was lipomatous hypertrophy of the interatrial septum. Pulmonary veins: ??Well visualized; normal. Right ventricle: ??The cavity size was normal. Wall thickness was normal. Systolic function was normal. Pulmonic valve: ?Structurally normal valve. ?No evidence of vegetation. ??Doppler: ?? There was no evidence for stenosis. ?? There was no significant regurgitation. Tricuspid valve: ?? Structurally normal valve. ?? Leaflet separation was normal. ??No evidence of vegetation. ??Doppler: ?? There was no evidence for stenosis. ?? There was no significant regurgitation. Pulmonary artery: ?? The main pulmonary artery was normal-sized. Systolic pressure could not be accurately estimated. Right atrium: ??The atrium was normal in size. Pericardium: ??There was no pericardial effusion. Systemic veins: Superior vena cava: The vessel was normal in size. I Jose Stauffer MD have personally reviewed the images and the fellows interpretation and either agreed with it or have edited the findings. ?I have personally reviewed the images and have reviewed and edited the reported findings. Electronically signed by Jose Stauffer MD 05/15/2019 11:52 Procedure Note Jose Stauffer MD, MD - 05/15/2019 *Interpreting Group:* *[facility]* [address] [place] [id number] Date of study: 05/15/2019 Transesophageal Echocardiography 2D, spectral Doppler, and color Doppler *STUDY CONCLUSIONS* Impressions: Severe aortic regurgitation. There was no evidence of endocarditis. Summary: 1. Left ventricle: The cavity size was normal. Wall thickness was normal. Systolic function was normal. The estimated ejection fraction was 55-60%. Wall motion was normal; there were no regional wall motion abnormalities. 2. Right ventricle: The cavity size was normal. Wall thickness was normal. Systolic function was normal. 3. Aortic valve: Trileaflet; mildly thickened leaflets. There was an eccentric jet of severe regurgitation directed towards the mitral anterior leaflet. Severity was suggested by diastolic flow reversal in the ascending aorta. *PATIENT PRESENTATION* Height: 167.6cm (66in ) S/D Pressure: 120 / 64 Weight: 75kg (165lb ) BSA: 1.88m^2 ADMITTING Anjum Pascual MD ATTENDING Simona Hamilton MD REFERRING Lorrie Conte PERFORMING [employer], [place] FELLOW Essence Wang ORDERING Noelle Frias Do REFERRING Noelle Frias Do *PROCEDURE DATA* Procedure information: Dr. Jose Stauffer supervised and was present for the performance of the entire procedure. This study was interpreted by [facility]. Pertinent images and digital data are archived for permanent storage and are available for subsequent review. Study status: Routine. Diagnostic transesophageal echocardiography. 2D, spectral Doppler, and color Doppler. Consent: The risks, benefits, and alternatives to the procedure were explained to the patient and consent was verbally obtained. Barriers to education: No barriers to education identified. Initial setup. The patient was brought to the laboratory in the fasting state. Surface ECG leads, blood pressure measurements, and pulse oximetric signals were monitored. Sedation. Moderate sedation was administered . A Transesophageal echocardiogram was performed. Topical anesthesia was obtained using viscous lidocaine. A Multiplane 3D transesophageal probe was inserted by Kai Ferrara. Images were obtained using an [employer] 9 cardiac ultrasound machine. Image quality was excellent. The transesophageal probe was removed. Study completion: The patient tolerated the procedure well. There was no blood loss or specimens removed during the procedure. There were no complications. Administered medications: Fentanyl, 50mcg, IV. Midazolam, 3mg, IV. *CARDIAC ANATOMY* Left ventricle: The cavity size was normal. Wall thickness was normal. Systolic function was normal. The estimated ejection fraction was 55-60%. Wall motion was normal; there were no regional wall motion abnormalities. Aortic valve: Trileaflet; mildly thickened leaflets. Cusp separation was normal. No evidence of vegetation. Doppler: There was no stenosis. There was an eccentric jet of severe regurgitation directed towards the mitral anterior leaflet. Severity was suggested by diastolic flow reversal in the ascending aorta. Aorta: There was no atheroma. There was no evidence for dissection. Aortic root: The aortic root was not dilated. Ascending aorta: The ascending aorta was normal in size. Aortic arch: The aortic arch was normal in size. Descending aorta: The descending aorta was normal in size. Mitral valve: Structurally normal valve. Leaflet separation was normal. No evidence of vegetation. Doppler: There was no evidence for stenosis. There was trivial regurgitation. Left atrium: The atrium was normal in size. No evidence of thrombus in the atrial cavity or appendage. The appendage was morphologically a left appendage, multilobulated, and of normal size. Atrial septum: No defect or patent foramen ovale was identified. There was lipomatous hypertrophy of the interatrial septum. Pulmonary veins: Well visualized; normal. Right ventricle: The cavity size was normal. Wall thickness was normal. Systolic function was normal. Pulmonic valve: Structurally normal valve. No evidence of vegetation. Doppler: There was no evidence for stenosis. There was no significant regurgitation. Tricuspid valve: Structurally normal valve. Leaflet separation was normal. No evidence of vegetation. Doppler: There was no evidence for stenosis. There was no significant regurgitation. Pulmonary artery: The main pulmonary artery was normal-sized. Systolic pressure could not be accurately estimated. Right atrium: The atrium was normal in size. Pericardium: There was no pericardial effusion. Systemic veins: Superior vena cava: The vessel was normal in size. I Jose Stauffer MD have personally reviewed the images and the fellows interpretation and either agreed with it or have edited the findings. I have personally reviewed the images and have reviewed and edited the reported findings. Electronically signed by Jose Stauffer MD 05/15/2019 11:52 Noelle Frias DO CARDIAC ECHO ORDERA BLES * INPATIENT ADD-ON (05/15/2019 6:50 EDT) [facility] Signature Tests to be added MAGNESIUM 05/15/2019 6:45 EDT [facility] Number for problems [id number] 05/15/2019 6:49 EDT [facility] Accession number [id number] 05/15/2019 6:49 EDT [facility] TOPOGRAPHY UNKNOWN / Unknown 05/15/2019 6:50 EDT 05/15/2019 6:51 EDT Rosio Treviño MD HEMATOLOGY & PF4 ORD ERABLES [facility] [address] [place] [address] * MAGNESIUM (05/15/2019 5:32 EDT) Magnesium 2.0 1.7 - 2.8 mg/dl 05/15/2019 7:48 EDT [facility] BLOOD SPECIMEN / Unknown 05/15/2019 5:32 EDT 05/15/2019 6:08 EDT Rosio Treviño MD CHEMISTRY & BLOOD GA S ORDERABLES Performing Organization Address [facility] de Phone Number [facility] [address] [place] [address] * CREATININE (05/15/2019 5:32 EDT) Creatinine 1.06 0.66 - 1.25 mg/dl 05/15/2019 6:43 EDT [facility] GFR, Calculated 72 >60 ml/min/1.7 3m2 05/15/2019 6:43 EDT [facility] Comment: eGFR calculated using CKD-EPI equation for non Americans. Multiply eGFR by 1.16 for Americans. Blood specimen (specimen) BLOOD SPECIMEN / Unknown 05/15/2019 5:32 EDT 05/15/2019 6:08 EDT Rosio Treviño MD CHEMISTRY & BLOOD GA S ORDERABLES Performing Organization Address [facility] de Phone Number [facility] [address] [place] [id number] * ELECTROLYTES (05/15/2019 5:32 EDT) Sodium 138 136 - 145 mEq/L 05/15/2019 6:43 EDT [facility] Potassium 4.4 3.5 - 5.0 mEq/L 05/15/2019 6:43 EDT [facility] Chloride 102 96 - 110 mEq/L 05/15/2019 6:43 EDT [facility] CO2 30 22 - 32 mEq/L 05/15/2019 6:43 EDT [facility] Blood specimen (specimen) BLOOD SPECIMEN / Unknown 05/15/2019 5:32 EDT 05/15/2019 6:08 EDT Rosio Treviño MD CHEMISTRY & BLOOD GA S ORDERABLES Performing Organization Address City/[facility]/ZIP Co de Phone Number [facility] [address] [place] [address] * (ABNORMAL) COMPLETE BLOOD COUNT (05/15/2019 5:32 EDT) WBC 7.34 4.0 - 10.4 K/cmm 05/15/2019 6:30 EDT [facility] RBC 4.60 4.36 - 5.78 M/cmm 05/15/2019 6:30 EDT [facility] Hemoglobin 14.5 13.8 - 17.3 gm/dl 05/15/2019 6:30 EDT [facility] HCT 41.5 39.5 - 50.2 % 05/15/2019 6:30 EDT [facility] MCV 90 81 - 95 fl 05/15/2019 6:30 EDT [facility] MCH 31.5 27.6 - 33.0 pg 05/15/2019 6:30 EDT [facility] MCHC 34.9 32.8 - 36.4 gm/dl 05/15/2019 6:30 T [facility] RDW-CV 14.5(H) <14.2 % 05/15/2019 6:30 T [facility] RDW-SD 47.5(H) <46.0 fl 05/15/2019 6:30 EDT [facility] PLT 257 141 - 377 K/cmm 05/15/2019 6:30 EDT [facility] MPV 10.3 9.5 - 12.7 fl 05/15/2019 6:30 EDT [facility] Blood specimen (specimen) BLOOD SPECIMEN / Unknown 05/15/2019 5:32 EDT 05/15/2019 6:08 EDT Rosio Treviño MD HEMATOLOGY & PF4 ORD ERABLES Performing Organization Address City/[facility]/ZIP Co de Phone Number [facility] [address] [place] [address] * C REACTIVE PROTEIN (05/14/2019 15:27 EDT) C Reactive Protein 7.1 <10.0 mg/L 05/14/2019 16:12 EDT [facility] BLOOD SPECIMEN / Unknown 05/14/2019 15:27 EDT 05/14/2019 15:33 EDT Rosio Treviño MD CHEMISTRY & BLOOD GA S ORDERABLES Performing Organization Address [facility] Co de Phone Number [facility] [address] [place] [address] * HLA B27 SCREEN, DNA (05/14/2019 15:27 EDT) HLA B27 Result Negative Not Applicable 05/21/2019 11:10 EDT [facility] Interpretation (Note) 05/21/2019 11:10 EDT [facility] Comment: HLA-B27 antigen was not detected. . ADDITIONAL INFORMATION Method: Flow Cytometry Performing Laboratory CLIA# [id number] Performed or Referred by: [facility], [address] [place] [id number] Blood specimen (specimen) BLOOD SPECIMEN / Unknown 05/14/2019 15:27 EDT 05/14/2019 15:33 EDT Rosio Treviño MD TISSUE TYPING ORDERA BLES Performing Organization Address [facility] Co de Phone Number [facility] [address] [place] [address] * CREATININE (05/14/2019 15:27 EDT) Creatinine 0.91 0.66 - 1.25 mg/dl 05/14/2019 16:03 EDT [facility] GFR, Calculated 86 >60 ml/min/1.7 3m2 05/14/2019 16:03 EDT [facility] Comment: eGFR calculated using CKD-EPI equation for non Americans. Multiply eGFR by 1.16 for Americans. Blood specimen (specimen) BLOOD SPECIMEN / Unknown 05/14/2019 15:27 EDT 05/14/2019 15:33 EDT Rosio Treviño MD CHEMISTRY & BLOOD GA S ORDERABLES Performing Organization Address [facility] Co de Phone Number [facility] [address] [place] [address] * ELECTROLYTES (05/14/2019 15:27 EDT) Sodium 140 136 - 145 mEq/L 05/14/2019 16:03 EDT [facility] Potassium 4.2 3.5 - 5.0 mEq/L 05/14/2019 16:03 EDT [facility] Chloride 102 96 - 110 mEq/L 05/14/2019 16:03 EDT [facility] CO2 32 22 - 32 mEq/L 05/14/2019 16:03 EDT [facility] Blood specimen (specimen) BLOOD SPECIMEN / Unknown 05/14/2019 15:27 EDT 05/14/2019 15:33 EDT Rosio Treviño MD CHEMISTRY & BLOOD GA S ORDERABLES Performing Organization Address [facility] Co de Phone Number [facility] [address] [place] [address] * (ABNORMAL) COMPLETE BLOOD COUNT (05/14/2019 15:27 EDT) WBC 6.43 4.0 - 10.4 K/cmm 05/14/2019 15:49 EDT [facility] RBC 4.68 4.36 - 5.78 M/cmm 05/14/2019 15:49 T [facility] Hemoglobin 14.5 13.8 - 17.3 gm/dl 05/14/2019 15:49 T [facility] HCT 42.7 39.5 - 50.2 % 05/14/2019 15:49 [facility] MCV 91 81 - 95 fl 05/14/2019 15:49 EDT [facility] MCH 31.0 27.6 - 33.0 pg 05/14/2019 15:49 EDT [facility] MCHC 34.0 32.8 - 36.4 gm/dl 05/14/2019 15:49 EDT [facility] RDW-CV 14.6(H) <14.2 % 05/14/2019 15:49 EDT [facility] RDW-SD 47.8(H) <46.0 fl 05/14/2019 15:49 EDT [facility] PLT 277 141 - 377 K/cmm 05/14/2019 15:49 EDT [facility] MPV 10.1 9.5 - 12.7 fl 05/14/2019 15:49 EDT [facility] Blood specimen (specimen) BLOOD SPECIMEN / Unknown 05/14/2019 15:27 EDT 05/14/2019 15:33 EDT Rosio Treviño MD HEMATOLOGY & PF4 ORD ERABLES Performing Organization Address City/[facility]/ZIP Co de Phone Number [facility] [address] [place] [address] * BACTERIAL CULTURE, BLOOD (05/14/2019 15:27 EDT) Result No growth 05/19/2019 7:20 EDT [facility] Blood specimen (specimen) BLOOD SPECIMEN / Unknown 05/14/2019 15:27 EDT 05/14/2019 16:05 EDT Comment:Right~Antecubital Rosio Treviño MD MICROBIOLOGY - GENER AL ORDERABLES Performing Organization Address City/[facility]/ZIP Co de Phone Number [facility] [address] [place] [address] * BACTERIAL CULTURE, BLOOD (05/14/2019 15:26 EDT) Result No growth 05/19/2019 7:20 EDT [facility] Blood specimen (specimen) BLOOD SPECIMEN / Unknown 05/14/2019 15:26 EDT 05/14/2019 16:04 EDT Comment:Right~Antecubital Rosio Treviño MD MICROBIOLOGY - GENER AL ORDERABLES Performing Organization Address City/[facility]/ZIP Co de Phone Number [facility] [address] [place] [address] * INPATIENT ADD-ON (05/14/2019 13:15 EDT) Tests to be added CRP 05/14/2019 13:14 EDT [facility] Number for problems [id number] 05/14/2019 15:53 EDT [facility] Accession number [id number] 05/14/2019 15:54 EDT [facility] Comment:Corrected on 05/14 A T 1554: Previously reported as [id number] TOPOGRAPHY UNKNOWN / Unknown 05/14/2019 13:15 EDT 05/14/2019 15:53 EDT Rosio Treviño MD HEMATOLOGY & PF4 ORD ERABLES Performing Organization Address City/[facility] Co de Phone Number [facility] [address] [place] [address] * CHEST PA AND LATERAL (05/14/2019 13:09 EDT) Anatomical Region Laterality Modality Other 05/14/2019 13:0 9 EDT 05/14/2019 13:48 EDT Narrative 05/14/2019 13:48 EDT CHEST 2 VIEWS ??05/14/2019 1:09 PM Clinical History/Comments: New dyspnea, found to have aortic insufficiency and orthopnea Comparison: None TECHNIQUE: Lateral and dual-energy frontal chest Findings: The cardiac silhouette and pulmonary vascularity are normal. The lungs are underinflated, but clear aside from bibasilar linear opacities consistent with scarring or atelectasis. There are no findings to specifically suggest pneumonia. There is no evidence of pleural fluid or pneumothorax. The skeleton is unremarkable for age. Impression: No evidence of CHF Procedure Note Rafa Lomax MD, MD - 05/14/2019 CHEST 2 VIEWS 05/14/2019 1:09 PM Clinical History/Comments: New dyspnea, found to have aortic insufficiency and orthopnea Comparison: None TECHNIQUE: Lateral and dual-energy frontal chest Findings: The cardiac silhouette and pulmonary vascularity are normal. The lungs are underinflated, but clear aside from bibasilar linear opacities consistent with scarring or atelectasis. There are no findings to specifically suggest pneumonia. There is no evidence of pleural fluid or pneumothorax. The skeleton is unremarkable for age. Impression: No evidence of CHF Rosio Treviño MD IMG DIAGNOSTIC IMAGI NG ORDERABLES * EKG 12-LEAD (05/14/2019 12:27 EDT) 05/14/2019 12:2 7 EDT Narrative [facility] EKG - 05/27/2019 17:18 EDT ? [facility] ? Test Date: ?2019-05-14 Pat Name: ? JOSE CHEUNG ? Department: ?? [facility] ? Room: ? VX6139 Gender: ? Male ? 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 [id number] : ?1950 ? Requested By: KAMILA AVELAR Order Number: [id number] ? Marshal PADRON: ?? JOSE STAUFFER MD ? Measurements Intervals ?[place] ? Rate: ? 80 ? P: ?49 WI: ? 160 ?QRS: ?20 QRSD: ? 81 ? T: ?53 QT: ? 373 ? QTc: ?430 ? Interpretive Statements SINUS RHYTHM POSSIBLE INFERIOR MYOCARDIAL INFARCTION, PROBABLY OLD No previous ECG available for comparison I reviewed the tracing and have either agreed or edited the findings in this report. Electronically Signed On 05-27-2019 17:18:14 EDT by JOSE STAUFFER MD. Procedure Note Jose Stauffer MD, MD - 05/27/2019 [facility] Test Date: 2019-05-14 Pat Name: JOSE CHEUNG Department: [place] [address] Room: [facility] Gender: Male Make Up Worker: [id number] : 1950 Requested By: KAMILA AVELAR Order Number: [id number] Marshal MD: JOSE STAUFFER MD Measurements Intervals [place] Rate: 80 P: 49 WI: 160 QRS: 20 QRSD: 81 T: 53 QT: 373 QTc: 430 Interpretive Statements SINUS RHYTHM POSSIBLE INFERIOR MYOCARDIAL INFARCTION, PROBABLY OLD No previous ECG available for comparison I reviewed the tracing and have either agreed or edited the findings inthis report. Electronically Signed On 05-27-2019 17:18:14 EDT by JOSE LINDSEY. Rosio Treviño MD CARDIAC ECG ORDERABL ES [facility] EKG documented in this encounter Visit Diagnoses Diagnosis Aortic valve regurgitation- Primary Aortic valve disorders Aortic valve insufficiency, etiology of cardiac valve disease unspecified Acute heart failure with preserved ejection fraction (HCC-CMS) Coronary artery disease involving [place] heart without angina pectoris, unspecified vessel or lesion type History of aortic valve replacement Heart valve replaced by other means Elevated blood pressure reading Elevated blood pressure reading without diagnosis of hypertension documented in this encounter Administered Medications Inactive Administered Medications - up to 3 most recent administrations Medication Order MAR Action Action Date Dose Rate Site acetaminophen (TYLENOL) solution unit dose cup 995 mg 995 mg (rounded from 1,000 mg), oral, EVERY 6 HOURS, First dose on Sun05/22/19 at 1400, Until Discontinued, Routine, On Unit Given 05/22/2019 15:58 EDT 995 mg acetaminophen (TYLENOL) tablet 1,000 mg 1,000 mg, oral, EVERY 8 HOURS, First dose (after last modification) on Sun05/16/19 at 1600, Until Discontinued, Routine Given 05/21/2019 6:45 EDT 1,000 mg Given 05/20/2019 22:41 EDT 1,000 mg Given 05/20/2019 15:46 EDT 1,000 mg acetaminophen (TYLENOL) tablet 1,000 mg 1,000 mg, oral, EVERY 6 HOURS, First dose on Sun05/22/19 at 1400, Until Discontinued, Routine Given 05/26/2019 8:41 EDT 1,000 mg Given 05/26/2019 1:45 EDT 1,000 mg Given 05/25/2019 20:56 EDT 1,000 mg acetaminophen (TYLENOL) tablet 500 mg 500 mg, oral, EVERY 4 HOURS PRN, Starting on Sun05/21/19 at 1215, Until Sun05/22/19 at 1331, Pain, Routine Given 05/22/2019 3:12 EDT 500 mg Given 05/21/2019 20:14 EDT 500 mg Given 05/21/2019 14:25 EDT 500 mg acetaminophen (TYLENOL) tablet 650 mg 650 mg, oral, EVERY 4 HOURS PRN, Starting on Sun05/14/19 at 1207, Until Sun05/16/19 at 0949, Pain, Routine Given 05/16/2019 6:50 EDT 650 mg Given 05/15/2019 11:41 EDT 650 mg Given 05/14/2019 16:37 EDT 650 mg aspirin chewable tablet 81 mg 81 mg, oral, DAILY, First dose on Sun05/21/19 at 0900, Until Discontinued, Routine Given 05/22/2019 7:53 EDT 81 mg Given 05/21/2019 9:02 EDT 81 mg aspirin chewable tablet 81 mg 81 mg, per ng tube, DAILY, First dose on Sun05/23/19 at 0900, Until Discontinued, Routine Given 05/23/2019 8:29 EDT 81 mg aspirin EC tablet 81 mg 81 mg, oral, DAILY, First dose on Sun05/23/19 at 0900, Until Discontinued, Routine Given 05/26/2019 8:42 EDT 81 mg Given 05/25/2019 8:48 EDT 81 mg Given 05/24/2019 8:59 EDT 81 mg aspirin tablet 325 mg 325 mg, oral, DAILY, First dose on Sun05/20/19 at 1015, Until Discontinued, Routine Given 05/20/2019 10:51 EDT 325 mg atorvastatin (LIPITOR) tablet 20 mg 20 mg, oral, DAILY, First dose on Sun05/23/19 at 0930, Until Discontinued, Routine Given 05/26/2019 8:42 EDT 20 mg Given 05/25/2019 8:49 EDT 20 mg Given 05/24/2019 9:01 EDT 20 mg fckwvdrwojh-gahpeefowdzeq-irmwqtsbt alafenamide (BIKTARVY) 50-200-25 mg per tablet 1 Tab 1 Tablet, oral, DAILY, First dose on Sun05/14/19 at 1715, Until Discontinued, All anti-retrovirals for ADULT patients are restricted. Has ID approved? Yes, Routine Given 05/22/2019 7:54 EDT 1 Tab let Given 05/21/2019 9:02 EDT 1 Tablet Given 05/20/2019 8:27 EDT 1 Tablet eanetsbjvxr-loskucghhfnbd-jjaxqoztw alafenamide (BIKTARVY) 50-200-25 mg per tablet 1 Tab 1 Tablet, oral, DAILY, First dose on Sun05/23/19 at 0915, Until Discontinued, All anti-retrovirals for ADULT patients are restricted. Has ID approved? Yes, Routine Given 05/26/2019 8:47 EDT 1 Tab let Given 05/25/2019 9:38 EDT 1 Tablet Given 05/24/2019 9:00 EDT 1 Tablet calcium chloride 100 mg/mL (10 %) syringe 2 g 2 g (2,000 mg), central line, NOW X1, 1 dose, On [place] 05/22/19 at 1445, Routine Given 05/22/2019 15:17 EDT 2 g ceFAZolin (ANCEF) 2,000 mg in sodium chloride 0.9% 50 mL IVPB 2,000 mg, intravenous, Administer over 30 Minutes, EVERY 8 HOURS, 2 doses, First dose on [place] 05/22/19 at 1600, Last dose on Sun05/23/19 at 0000, Routine, On Unit Given 05/23/2019 0:25 EDT 2,000 mg Given 05/22/2019 16:25 EDT 2,000 mg ceFAZolin (ANCEF) syringe 2 g 2 g, intravenous, Administer over 10 Minutes, PRE-OP ONCE, 1 dose, On [place] 05/22/19 at 0800, Routine, Pre-Op DOS Rx Approved Given by Other 05/22/2019 9:40 EDT 2 g chlorhexidine gluconate 2 % cloth 1 Each 1 Each, topical, DAILY, 5 doses, First dose on Tu05/20/19 at 1500, Last dose on 05/24/19 at 2100, Routine, Release Given 05/21/2019 20:31 EDT 1 Each Given 05/20/2019 16:27 EDT 1 Each docusate sodium (COLACE) capsule 100 mg 100 mg, oral, 2 TIMES DAILY, First dose (after last modification) on 05/25/19 at 0930, Until Discontinued, Routine Given 05/26/2019 8:42 EDT 100 mg Given 05/25/2019 20:56 EDT 100 mg Given 05/25/2019 9:36 EDT 100 mg electrolyte-A (PLASMALYTE-A) bolus 500 mL 500 mL, intravenous, NOW X1, 1 dose, On [place] 05/22/19 at 1415 Given 05/22/2019 13:30 EDT 500 mL electrolyte-A (PLASMALYTE-A) bolus 500 mL 500 mL, intravenous, NOW X1, 1 dose, On Alv[place] 5/19 at 2000 Given 05/22/2019 19:35 EDT 500 mL enoxaparin (LOVENOX) injection 40 mg 40 mg, subcutaneous, DAILY, First dose on Sun05/14/19 at 1230, Until Discontinued, Routine Given 05/21/2019 9:02 EDT 40 mg Given 05/20/2019 8:27 EDT 40 mg Given 05/19/2019 8:27 EDT 40 mg enoxaparin (LOVENOX) injection 40 mg 40 mg, subcutaneous, AT BEDTIME, First dose on 05/24/19 at 2100, Until Discontinued, Routine Given 05/25/2019 2 0:56 EDT 40 mg Given 05/24/2019 21:38 EDT 40 mg fentaNYL citrate (PF) injection intravenous, PRN, Starting on Sun05/15/19 at 1004, Until Sun05/15/19 at 1004, Routine Given 05/15/2019 10:04 EDT 50 mc g fentaNYL citrate (PF) injection intravenous, PRN, Starting on Sun05/20/19 at 1333, Until Sun05/20/19 at 1337, Routine Given 05/20/2019 13:37 EDT 25 mcg Given 05/20/2019 13:33 EDT 25 mcg fluconazole (DIFLUCAN) tablet 100 mg 100 mg, oral, DAILY, 7 doses, First dose on Sun05/14/19 at 1715, Last dose on Sun05/20/19 at 0900, Routine Given 05/15/2019 11:42 EDT 100 mg Given 05/14/2019 19:47 EDT 100 mg furosemide (LASIX) injection 20 mg 20 mg, intravenous, NOW X1, 1 dose, On Sun05/14/19 at 1715, Routine Given 05/14/2019 17:29 EDT 20 mg furosemide (LASIX) injection 20 mg 20 mg, intravenous, NOW X1, 1 dose, On Sun05/15/19 at 1300, Routine Given 05/15/2019 14:24 EDT 20 mg furosemide (LASIX) injection 20 mg 20 mg, intravenous, NOW X1, 1 dose, On 05/19/19 at 1130, Routine Given 05/19/2019 11:23 EDT 20 mg furosemide (LASIX) injection 20 mg 20 mg, intravenous, NOW X1, 1 dose, On Sun05/25/19 at 1130, Routine Given 05/25/2019 12:06 EDT 20 mg furosemide (LASIX) tablet 20 mg 20 mg, oral, DAILY, First dose on Sun05/16/19 at 1130, Until Discontinued, Routine Given 05/19/2019 8:26 EDT 20 mg Given 05/18/2019 8:53 EDT 20 mg Given 05/17/2019 8:13 EDT 20 mg furosemide (LASIX) tablet 20 mg 20 mg, oral, 2 TIMES DAILY WITH BREAKFAST & DINNER, First dose on Sun05/23/19 at 0930, Until Discontinued, Routine Given 05/26/2019 8:42 EDT 20 mg Given 05/25/2019 17:12 EDT 20 mg Given 05/25/2019 8:49 EDT 20 mg gabapentin (NEURONTIN) capsule 300 mg 300 mg, oral, EVERY 8 HOURS, 15 doses, First dose on Sun05/22/19 at 1600, Last dose on Sun05/27/19 at 0800, Routine Given 05/26/2019 8:41 EDT 300 mg Given 05/25/2019 23:18 EDT 300 mg Given 05/25/2019 17:12 EDT 300 mg gabapentin (NEURONTIN) solution 300 mg 300 mg, oral, EVERY 8 HOURS, 15 doses, First dose on Sun05/22/19 at 1600, Last dose on Sun05/27/19 at 0800, Routine Given 05/22/2019 15:58 EDT 300 mg glucagon injection 1 mg 1 mg, intramuscular, PRN, Starting on Sun05/25/19 at 0855, Until Sun05/26/19 at 1619, Low blood sugar, Routine HYDROmorphone (DILAUDID) tablet 2-4 mg 2-4 mg, oral, EVERY 2 HOURS PRN, Starting on Sun05/22/19 at 1331, Until Sun05/26/19 at 1024, Pain, Routine Given 05/25/2019 20:59 EDT 4 mg Given 05/24/2019 4:19 EDT 4 mg Given 05/23/2019 22:00 EDT 2 mg HYDROmorphone (DILAUDID) tablet 2-4 mg 2-4 mg, oral, EVERY 4 HOURS PRN, Starting on Sun05/26/19 at 1030, Until Sun05/26/19 at 1619, Pain, Routine HYDROmorphone (PF) (DILAUDID) 0.5 mg/0.5 mL syringe 0.2-0.4 mg 0.2-0.4 mg, intravenous, EVERY 2 HOURS PRN, Starting on Sun05/22/19 at 1331, Until Sun05/26/19 at 1024, Pain, Routine Given 05/22/2019 18:22 EDT 0.4 mg insulin aspart U-100 (NOVOLOG FLEXPEN) injection subcutaneous, 3 TIMES DAILY WITH MEALS, First dose on Sun05/25/19 at 0915, Until Discontinued, STAT insulin aspart U-100 (NOVOLOG FLEXPEN) injection subcutaneous, AT BEDTIME, First dose on Sun05/25/19 at 2100, Until Discontinued, Routine lidocaine (XYLOCAINE) 2 % viscous solution oral, PRN, Starting on Sun05/15/19 at 1000, Until Sun05/15/19 at 1000, Routine Given 05/15/2019 10:00 EDT 30 mL lidocaine 5 % (LIDODERM) patch 1 Patch 1 Patch, transdermal, Administer over 12 Hours, DAILY, First dose on Sun05/20/19 at 2100, Until Discontinued, Routine Patch Applied 05/21/2019 22:11 EDT 1 Patch Back Patch Applied 05/20/2019 21:23 EDT 1 Patch B ack magnesium sulfate 2g in D5W 50 ml 2 g, intravenous, Administer over 30 Minutes, NOW X1, 1 dose, On Sun05/22/19 at 1400, Routine, On Unit Given 05/22/2019 14:32 EDT 2 g melatonin tablet 3 mg 3 mg, oral, AT BEDTIME, First dose on Sun05/16/19 at 2100, Until Discontinued, Routine Given 05/21/2019 22:11 EDT 3 mg Given 05/20/2019 22:41 EDT 3 mg Given 05/19/2019 22:44 EDT 3 mg melatonin tablet 3 mg 3 mg, oral, AT BEDTIME, First dose on Sun05/25/19 at 2315, Until Discontinued, Routine Given 05/25/2019 23:18 EDT 3 mg metoprolol (LOPRESSOR) tablet 12.5 mg 12.5 mg, oral, 2 TIMES DAILY, First dose on Sun05/23/19 at 0930, Until Discontinued, Routine Given 05/24/2019 21:38 EDT 12.5 mg Given 05/24/2019 9:00 EDT 12.5 mg Given 05/23/2019 20:15 EDT 12.5 mg metoprolol (LOPRESSOR) tablet 25 mg 25 mg, oral, NOW X1, 1 dose, On Sun05/16/19 at 0800, Routine Given 05/16/2019 10:27 EDT 25 mg metoprolol (LOPRESSOR) tablet 25 mg 25 mg, oral, NOW X1, 1 dose, On Sun05/16/19 at 1115, Routine Given 05/16/2019 11:13 EDT 25 mg metoprolol (LOPRESSOR) tablet 25 mg 25 mg, oral, 2 TIMES DAILY, First dose (after last modification) on Sun05/25/19 at 0900, Until Discontinued, Routine Given 05/25/2019 20:56 EDT 25 mg Given 05/25/2019 8:49 EDT 25 mg metoprolol (LOPRESSOR) tablet 37.5 mg 37.5 mg, oral, 2 TIMES DAILY, First dose (after last modification) on Sun05/26/19 at 0900, Until Discontinued, Routine Given 05/26/2019 8:49 EDT 37.5 mg midazolam (PF) (VERSED) injection intravenous, PRN, Starting on Sun05/15/19 at 1030, Until Sun05/15/19 at 1030, Routine Given 05/15/2019 10:30 EDT 5 mg midazolam (PF) (VERSED) injection intravenous, PRN, Starting on Sun05/20/19 at 1333, Until Sun05/20/19 at 1337, Routine Given 05/20/2019 13:37 EDT 1 mg Given 05/20/2019 13:33 EDT 1 mg mupirocin (BACTROBAN) 2 % ointment 1 g 1 g, nasal, 2 TIMES DAILY, 10 doses, First dose on Sun05/20/19 at 2100, Last dose on Sun05/25/19 at 0900, Release Given 05/22/2019 7:54 EDT 1 g Given 05/21/2019 20:30 EDT 1 g Given 05/21/2019 9:05 EDT 1 g phenylephrine HCl in 0.9% NaCl (NEO_SYNEPHRINE) 20 mg/250 mL (80 mcg/mL) infusion solution 10-80 mcg/min (7.5-60 mL/hr), intravenous, CONTINUOUS, Starting on [place] 05/22/19 at 1400, Until Sun05/23/19 at 0634, Routine, On Unit Rate Documented 05/22/2019 19:00 EDT 10 mcg/min 7.5 mL/hr Rate Documented 05/22/2019 18:51 EDT 10 mcg/min 7.5 mL/hr New Bag 05/22/2019 18:28 EDT 20 mcg/min 15 mL/hr polyethylene glycol 3350 (MIRALAX) packet 17 g 17 g, oral, DAILY, First dose on 05/25/19 at 0930, Until Discontinued, Routine Given 05/26/2019 8:39 EDT 17 g Given 05/25/2019 9:36 EDT 17 g potassium chloride in water infusion 20 mEq 20 mEq, intravenous, at 100 mL/hr, PRN, Starting on [place] 05/22/19 at 1331, Until 05/26/19 at 1028, low potassium, Routine Given 05/22/2019 16:27 EDT 20 mEq 100 mL/hr potassium chloride SA (K-DUR) tablet 10 mEq 10 mEq, oral, 2 TIMES DAILY, First dose on 05/24/19 at 1030, Until Discontinued, Routine Given 05/26/2019 8:41 EDT 10 mEq Given 05/25/2019 17:12 EDT 10 mEq Given 05/25/2019 8:48 EDT 10 mEq potassium chloride SA (K-DUR) tablet 40 mEq 40 mEq, oral, NOW X1, 1 dose, On Sun05/25/19 at 1300, Routine Given 05/25/2019 13:37 EDT 40 mEq propOFol (DIPRIVAN) 1000 mg in 100 mL infusion 5-83 mcg/kg/min ? 72.8 kg (2.184-36.2544 mL/hr, rounded to 2.2-36.3 mL/hr), intravenous, CONTINUOUS, Starting on [place] 05/22/19 at 1400, Until Sun05/23/19 at 0634, Routine Rate Documented 05/22/2019 16:24 EDT 10 mcg/kg/min 4.4 mL/hr Rate Documented 05/22/2019 16:00 EDT 19.918 mcg/kg/min 8.7 mL/hr Rate Documented 05/22/2019 15:57 EDT 20 mcg/kg/min 8.7 mL/ hr senna (SENOKOT) tablet 2 Tab 2 Tablet, oral, 2 TIMES DAILY, First dose (after last modification) on Sun05/25/19 at 0930, Until Discontinued, Routine Given 05/26/2019 8:42 EDT 2 Tablets Given 05/25/2019 20:56 EDT 2 Tablets Given 05/25/2019 9:36 EDT 2 Tablets sodium chloride 0.9 % (flush) flush 3 mL 3 mL, intravenous, EVERY 8 HOURS, First dose on Sun05/14/19 at 1600, Until Discontinued, Routine Given 05/22/2019 7:54 EDT 3 mL Given 05/22/2019 0:11 EDT 3 mL Given 05/21/2019 9:05 EDT 3 mL sodium chloride 0.9 % (NS) infusion intravenous, FA IP EQF CONTINUOUS PRN FOR ONE STEP MEDS, Starting on Sun05/20/19 at 1318, Until Sun05/20/19 at 1318, Routine New Bag 05/20/2019 13:18 EDT 25 mL/hr 25 mL/hr sodium chloride 0.9 % (NS) infusion 10 mL/hr, intravenous, CONTINUOUS, Starting on [place] 05/22/19 at 1430, Until 05/26/19 at 1028, Routine Rate Documented 05/22/2019 15:00 EDT 10 mL/hr 10 mL/ hr tamsulosin (FLOMAX) capsule 0.4 mg 0.4 mg, oral, DAILY, First dose on Sun05/14/19 at 1715, Until Discontinued, Routine Given 05/21/2019 9:02 EDT 0.4 mg Given 05/20/2019 8:27 EDT 0.4 mg Given 05/19/2019 8:26 EDT 0.4 mg tamsulosin (FLOMAX) capsule 0.4 mg 0.4 mg, oral, DAILY, First dose on 05/24/19 at 1800, Until Discontinued, Routine Given 05/26/2019 8:42 EDT 0.4 mg Given 05/25/2019 8:49 EDT 0.4 mg Given 05/24/2019 18:11 EDT 0.4 mg traMADol (ULTRAM) tablet 50-100 mg 50-100 mg, oral, EVERY 6 HOURS PRN, Starting on [place] 05/22/19 at 1331, Until 05/26/19 at 1619, Pain, Routine Given 05/24/2019 7:48 EDT 100 mg Given 05/24/2019 2:18 EDT 100 mg Given 05/23/2019 20:14 EDT 50 mg documented in this encounter Active and Recently Administered Medications Times are shown in EDT. Scheduled Medication Order 05/24/2019 05/25/2019 05/26/2019 acetaminophen (TYLENOL) tablet 1,000 mg(Linked Group 1) 1,000 mg, oral, EVERY 6 HOURS, First dose on [place] 05/22/19 at 1400, Until Discontinued, Routine 0218 (Given - Provider: Bertha Lincoln RN)0748 (Given - Provider: Law Piña RN)1335 (Given - Provider: Tita Pearl RN)2138 (Given - Provider: Amara Valdivia RN) 0136 (Given - Provider: Amara Valdivia RN)0856 (Given - Provider: Nelson Barbosa RN)1337 (Given - Provider: Nelson Barbosa RN)2056 (Given - Provider: Sergo Land RN) 0145 (Given - Provider: Sergo Land RN)0841 (Given - Provider: Jamari Cheung RN)1357 (Not Given - Provider: Jamari Cheung RN - Reason: Other - Comment: Pt discharged) aspirin EC tablet 81 mg(Linked Group 2) 81 mg, oral, DAILY, First dose on Sun05/23/19 at 0900, Until Discontinued, Routine 0859 (Given - Provider: Law Piña RN) 0848 (Given - Provider: Nelson Barbosa RN) 0842 (Given - Provider: Jamari Cheung RN) atorvastatin (LIPITOR) tablet 20 mg 20 mg, oral, DAILY, First dose on Sun05/23/19 at 0930, Until Discontinued, Routine 0901 (Given - Provider: Law Piña RN) 0849 (Given - Provider: Nelson Barbosa RN) 0842 (Given - Provider: Jamari Cheung RN) bictegravir-emtricitab ine-tenofovir alafenamide (BIKTARVY) 50-200-25 mg per tablet 1 Tab 1 Tablet, oral, DAILY, First dose on Sun05/23/19 at 0915, Until Discontinued, All anti-retrovirals for ADULT patients are restricted. Has ID approved? Yes, Routine 0900 (Given - Provider: Law Piña RN) 0938 (Given - Provider: Nelson Barbosa RN) 0847 (Given - Provider: aJmari Cheung, JONG) docusate sodium (COLACE) capsule 100 mg 100 mg, oral, 2 TIMES DAILY, First dose (after last modification) on 05/25/19 at 0930, Until Discontinued, Routine 0936 (Given - Provider: Nelson Barbosa RN)2055 (Given - Provider: Sergo Land RN) 841 (Given - Provider: Jamari Cheung RN) enoxaparin (LOVENOX) injection 40 mg 40 mg, subcutaneous, AT BEDTIME, First dose on 05/24/19 at 2100, Until Discontinued, Routine 2137 (Given - Provider: Amara Valdivia RN) 2055 (Given - Provider: Sergo Land RN) furosemide (LASIX) injection 20 mg (COMPLETED) 20 mg, intravenous, NOW X1, 1 dose, On 05/25/19 at 1130, Routine 1206 (Given - Provider: Nelson Barbosa RN) furosemide (LASIX) injection 20 mg 20 mg, intravenous, NOW X1, 1 dose, On 05/26/19 at 0900, Routine 1241 (Not Given - Provider: Jamari Cheung RN - Reason: Other - Comment: Per CT surg ok to hold IV Lasix 2/2 BP 88/61.) furosemide (LASIX) tablet 20 mg 20 mg, oral, 2 TIMES DAILY WITH BREAKFAST & DINNER, First dose on Sun05/23/19 at 0930, Until Discontinued, Routine 0751 (Given - Provider: Law Piña RN)1627 (Given - Provider: Tita Pearl RN) 0849 (Given - Provider: Nelson Barbosa RN)171 (Given - Provider: Nelson Barbosa RN) 0842 (Given - Provider: Jamari Cheung RN) gabapentin (NEURONTIN) capsule 300 mg(Linked Group 3) 300 mg, oral, EVERY 8 HOURS, 15 doses, First dose on Sun05/22/19 at 1600, Last dose on Sun05/27/19 at 0800, Routine 0016 (Given - Provider: Bertha Lincoln RN)0753 (Given - Provider: Law Piña, RN)1627 (Given - Provider: Tita Pearl RN) 0135 (Given - Provider: Amara Valdivia, JONG)0851 (Given - Provider: Nelson Barbosa RN)1712 (Given - Provider: Nelson Barbosa RN)2318 (Given - Provider: Serog Land RN) 0841 (Given - Provider: Jamari Cheung RN)1600 (Canceled Entry - Provider: Batch Job User Admin - Comment: Automatically canceled at discontinue of medication order) insulin aspart U-100 (NOVOLOG FLEXPEN) injection subcutaneous, 3 TIMES DAILY WITH MEALS, First dose on 05/25/19 at 0915, Until Discontinued, STAT 0900 (Not Given - Provider: Nelson Barbosa RN - Reason: Order parameters not met)1312 (Not Given - Provider: Darlene Allan RN - Reason: Order parameters not met)1932 (Not Given - Provider: Sergo Land RN - Reason: Order parameters not met - Comment: BGL 103) 0749 (Not Given - Provider: Jamari Cheung RN - Reason: Order parameters not met)1239 (Not Given - Provider: Jamari Cheung RN - Reason: Order parameters not met) insulin aspart U-100 (NOVOLOG FLEXPEN) injection subcutaneous, AT BEDTIME, First dose on 05/25/19 at 2100, Until Discontinued, Routine 2156 (Not Given - Provider: Sergo Land RN - Reason: Order parameters not met - Comment: BGL 201) melatonin tablet 3 mg 3 mg, oral, AT BEDTIME, First dose on 05/25/19 at 2315, Until Discontinued, Routine 2318 (Given - Provider: Sergo Land RN) metoprolol (LOPRESSOR) tablet 12.5 mg (CANCELED) 12.5 mg, oral, 2 TIMES DAILY, First dose on Sun05/23/19 at 0930, Until Discontinued, Routine 0900 (Given - Provider: Law Piña RN)2137 (Given - Provider: Amara Valdivia, JONG) metoprolol (LOPRESSOR) tablet 25 mg (CANCELED) 25 mg, oral, 2 TIMES DAILY, First dose (after last modification) on 05/25/19 at 0900, Until Discontinued, Routine 0849 (Given - Provider: Nelson Barbosa RN)2055 (Given - Provider: Sergo Land, RN) metoprolol (LOPRESSOR) tablet 37.5 mg 37.5 mg, oral, 2 TIMES DAILY, First dose (after last modification) on 05/26/19 at 0900, Until Discontinued, Routine 0849 (Given - Provid er: Jamari Cheung RN) polyethylene glycol 3350 (MIRALAX) packet 17 g 17 g, oral, DAILY, First dose on 05/25/19 at 0930, Until Discontinued, Routine 0936 (Given - Provider: Nelson Barbosa RN) 0839 (Given - Provider: Jamari Cheung RN) potassium chloride SA (K-DUR) tablet 10 mEq 10 mEq, oral, 2 TIMES DAILY, First dose on 05/24/19 at 1030, Until Discontinued, Routine 1106 (Given - Provider: Tita Pearl RN)1627 (Given - Provider: Tita Pearl RN) 0848 (Given - Provider: Nelson Barbosa RN)1712 (Given - Provider: Nelson Barbosa RN) 0841 (Given - Provider: Jamari Cheung RN)1600 (Canceled Entry - Provider: Batch Job User Admin - Comment: Automatically canceled at discontinue of medication order) potassium chloride SA (K-DUR) tablet 40 mEq (COMPLETED) 40 mEq, oral, NOW X1, 1 dose, On 05/25/19 at 1300, Routine 1337 (Given - Provider: Nelson Barbosa RN) senna (SENOKOT) tablet 2 Tab 2 Tablet, oral, 2 TIMES DAILY, First dose (after last modification) on 05/25/19 at 0930, Until Discontinued, Routine 0936 (Given - Provider: Nelson Barbosa RN)2055 (Given - Provider: Sergo Land RN) 0842 (Given - Provider: Jamari Cheung RN) tamsulosin (FLOMAX) capsule 0.4 mg 0.4 mg, oral, DAILY, First dose on 05/24/19 at 1800, Until Discontinued, Routine 1811 (Given - Provider: Tita Pearl RN) 0849 (Given - Provider: Nelson Barbosa RN) 0842 (Given - Provider: Jamari Cheung RN) PRN Medication Order 05/24/2019 05/25/2019 05/26/2019 bisacodyl (DULCOLAX) suppository 10 mg 10 mg, rectal, DAILY PRN, Starting on 05/24/19 at 1004, Until 05/26/19 at 1619, Constipation, PRN for constipation or if no bowel movement by POD#3, Routine glucagon injection 1 mg 1 mg, intramuscular, PRN, Starting on 05/25/19 at 0855, Until 05/26/19 at 1619, Low blood sugar, Routine HYDROmorphone (DILAUDID) tablet 2-4 mg (CANCELED) 2-4 mg, oral, EVERY 2 HOURS PRN, Starting on [place] 05/22/19 at 1331, Until Sun05/26/19 at 1024, Pain, Routine 0419 (Given - Provider: Bertha Lincoln RN) 2058 (Given - Provider: Sergo Land RN) HYDROmorphone (DILAUDID) tablet 2-4 mg(Linked Group 4) 2-4 mg, oral, EVERY 4 HOURS PRN, Starting on 05/26/19 at 1030, Until Sun05/26/19 at 1619, Pain, Routine ondansetron (PF) (ZOFRAN) injection 4 mg 4 mg, intravenous, EVERY 6 HOURS PRN, Starting on [place] 05/22/19 at 1331, Until Sun05/26/19 at 1619, Nausea, Routine traMADol (ULTRAM) tablet 50-100 mg 50-100 mg, oral, EVERY 6 HOURS PRN, Starting on [place] 05/22/19 at 1331, Until 05/26/19 at 1619, Pain, Routine 0218 (Given - Provider: Bertha Lincoln RN)0748 (Given - Provider: Law Piña RN) Linked Groups Order Group 1: acetaminophen (TYLENOL) tablet 1,000 mgJump to med 1,000 mg, oral, EVERY 6 HOURS, First dose on Sun05/22/19 at 1400, Until Discontinued, Routine Or acetaminophen (TYLENOL) suppository 975 mg (CANCELED) 975 mg, rectal, EVERY 6 HOURS, First dose on Sun05/22/19 at 1400, Until Discontinued, Routine, On Unit Or acetaminophen (TYLENOL) solution unit dose cup 995 mg (CANCELED) 995 mg (rounded from 1,000 mg), oral, EVERY 6 HOURS, First dose on Sun05/22/19 at 1400, Until Discontinued, Routine, On Unit Group 2: aspirin chewable tablet 81 mg (CANCELED) 81 mg, per ng tube, DAILY, First dose on Sun05/23/19 at 0900, Until Discontinued, Routine Or aspirin EC tablet 81 mgJump to med 81 mg, oral, DAILY, First dose on Sun05/23/19 at 0900, Until Discontinued, Routine Group 3: gabapentin (NEURONTIN) capsule 300 mgJump to med 300 mg, oral, EVERY 8 HOURS, 15 doses, First dose on Sun05/22/19 at 1600, Last dose on Sun05/27/19 at 0800, Routine Or gabapentin (NEURONTIN) solution 300 mg (CANCELED) 300 mg, oral, EVERY 8 HOURS, 15 doses, First dose on Sun05/22/19 at 1600, Last dose on Sun05/27/19 at 0800, Routine Group 4: HYDROmorphone (DILAUDID) tablet 2-4 mgJump to med 2-4 mg, oral, EVERY 4 HOURS PRN, Starting on Sun05/26/19 at 1030, Until Sun05/26/19 at 1619, Pain, Routine documented in this encounter Orders Medications Ordered That Kaushik ht Not Have Been Administered Count Last Ordered Date First Ordered Date furosemide (LASIX) injection 20 mg 1 2018 HYDROmorphone (DILAUDID) tablet 2-4 mg 1 metoprolol (LOPRESSOR) tablet 50 mg 1 05/26 glucagon injection 1 mg 1 05/25/2019 insulin aspart U-100 (NOVOLO G FLEXPEN) injection 2 05/25/2019 bisacodyl (DULCOLAX) suppository 10 mg 1 docusate sodium (COLACE) capsule 100 mg 1 0 05/24/2019 senna (SENOKOT) tablet 2 Tab 1 05/24/2019 acetaminophen (TYLENOL) suppository 975 mg 1 05/22/2019 dextrose 50 % solution 12.5-25 g 1 05/22/20 19 insulin regular (HUMULIN R, NOVOLIN R) 2 Units bolus infusion 1 05/22/2019 insulin regular (NOVOLIN R) 100 Units in sodium chloride (NS) 0.9 % 100 mL infusion 1 05/22/2019 morphine injection 1-4 mg 1 05/22/2019 ondansetron (PF) (ZOFRAN) injection 4 mg 1 05/22/2019 phenylephrine HCl in 0.9% Na Cl (NEO_SYNEPHRINE) 20 mg/250 mL (80 mcg/mL) infusion solution 1 05/22/2019 [place] cardioplegic solution 1,052.8 mL 1 05/21/2019 chlorhexidine gluconate 2 % cloth 1 Each 1 05/20/2019 fentaNYL citrate (PF) 50 mcg/mL injection 2 05/20/2019 05/15/2019 heparin 1,000 unit/mL injection 1 9 lidocaine 20 mg/mL (2 %) injection 1 2018 midazolam (PF) (VERSED) 1 mg/mL injection 3 05/20/2019 05/15/2019 nitroglycerin 100 mcg/mL syringe 1 05/20/20 19 verapamil (ISOPTIN) 2.5 mg/mL injection 1 0 05/20/2019 sodium chloride (OCEAN) 0.65 % nasal spray 1 [place] 1 05/17/2019 lidocaine (XYLOCAINE) 2 % viscous solution 1 05/15/2019 Diet Count Last Ordered Date First Orde red Date DISCHARGE DIET 2 05/26/2019 Nursing Count Last Ordered Date First Orde red Date ACTIVITY INSTRUCTIONS 8 05/26/2019 BATHING INSTRUCTIONS 1 05/26/2019 PLACE ANTI-EMBOLISM STOCKINGS 1 05/26/2019 WOUND CARE INSTRUCTIONS 4 05/26/2019 CATHETER CARE 2 05/24/2019 05/22/2019 CHEST TUBE TO CONTINUOUS SUCTION 2 05/24/20 19 05/22/2019 CONTRAINDICATION TO ANTICOAG ULATION THERAPY 1 05/24/2019 GARCIA CATHETER - DISCONTINUE 1 05/24/2019 MEASUREMENTS - MISCELLANEOUS 1 05/24/2019 DISCONTINUE SLIC KEEP INTRODUCTER 1 019 REMOVE ARTERIAL LINE 1 05/23/2019 VTE PHARMACOLOGIC PROPHYLAXI S CURRENTLY ORDERED OR ON ALTERNATIVE THER 2 05/22/2019 9 NURSING COMMUNICATION 1 05/17/2019 SUSPEND TELEMETRY FOR PROCEDURE 2 9 05/14/2019 MEASURE WEIGHT 1 05/14/2019 Consult Count Last Ordered Date First Orde red Date CONSULT RESPIRATORY CARE 1 05/22/2019 Respiratory Care Count Last Ordered Date First Ordered Date EXTUBATION 1 05/22/2019 RESPIRATORY CARE EVALUATION ONLY 1 05/22/20 19 IV Count Last Ordered Date First Orde red Date REMOVE CORDIS 1 05/24/2019 IV REQUEST 3 05/22/2019 05/14/2019 Admission Count Last Ordered Date First Orde red Date STATUS: INPATIENT ACUTE ADMISSION 1 019 Transfer Count Last Ordered Date First Orde red Date NOTIFY PPS OF DISCHARGE COMPLETE 1 05/26/20 19 PPS NOTIFICATION OF PATIENT ARRIVAL ON UNIT 2 05/24/2019 05/22/2019 PPS NOTIFICATION OF SENDING PATIENT OFF THE UNIT 3 05/24/2019 05/22/2019 TRANSFER PATIENT 1 05/23/2019 CHANGE ATTENDING TO: 4 05/22/2019 019 UR PATIENT STATUS CHANGE 1 05/14/2019 Discharge Count Last Ordered Date First Orde red Date DISCHARGE PATIENT 1 05/26/2019 Legal Count Last Ordered Date First Orde red Date MISCELLANEOUS DISCHARGE INSTRUCTIONS 3 05/2019 documented in this encounter Care Teams Armament Installer Relationship Specialty Start Date End Date Lorrie Conte MD PCP - General 10/19/17 documented as of this encounter
--- OUTSIDE RECORDS SUMMARY | 2024-05-12 17:07 | XMS_ITS | Encounter Summary ---
Author Organization [facility] [address] Care Team Providers Care Operater Name Role Phone Lorrie Conte MD Primary Care Provider [phone] Reason for Visit * Reason Comments Glaucoma Encounter Details Date Type Department Care Team (Late st Contact Info) Description 10/23/2022 9:00 AM EST Office [place] [address] Wolfgang Aguila MD [facility] [place] [address] Glaucoma suspect, both eyes; Pseudophakic bullous keratopathy of left eye Social History Tobacco Use [...] Progress Notes * Wolfgang Aguila MD - 10/23/2022 9:00 AM EST Glaucoma suspect OU: IOP slightly above target OU but healthy nerves OU. No prior OCT comparisons. Not on latanoprost but tolerating brimonidine and timolol. 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 Plan: Will follow glaucoma parameters on current regimen, if progression could consider resumption of latanoprost or SLT. Will see again in 9 months for HVF OU. documented in this encounter Plan of Treatment Not on file documented as of this encounter Procedures Procedure Name Priority Date/Time Associated Diagnosis Comments OCT OPTIC NERVE - OU - BOTH EYES Routine 10/23/2022 10:00 AM EST Glaucoma suspect, both eyes documented in this encounter Results * Oct Optic Nerve - OU - Both Eyes (10/23/2022 10:00 AM EST) Anatomical Region Laterality Modality Other Narrative 10/23/2022 10:00 AM EST Right Eye Quality was good. Left Eye Quality was borderline. Notes G = 99/89 Quadrants: OD- all wnl OS- all wnl Interpretation: ??Normal nerves OU Wolfgang Aguila MD OPHTHALMOLOGY SERVIC ES ORDERABLES documented in this encounter Visit Diagnoses Diagnosis Glaucoma suspect, both eyes Preglaucoma, unspecified Pseudophakic bullous keratopathy of left eye documented in this encounter Care Teams Operater Relationship Specialty Start Date End Date Lorrie Conte MD [address] [place] [address] PCP - General 08/09/10 documented as of this encounter
--- OUTSIDE RECORDS SUMMARY | 2024-05-12 17:07 | XMS_ITS | Encounter Summary ---
Author Organization [facility] Address [address] [place] [address] Care Team Providers Care Tool Turret Lathe Set Up Operator Name Role Phone Unknown, Provider Primary Care Provider [phone] Encounter Details Date Type Department Care Team (Late st Contact Info) Description 10/15/[address] [facility] [phone] Emma Yip MD [address] [place] [id number] Social History Tobacco Use Types Packs/Day Years Used Date Smoking Tobacco: Never Assessed Sex and Gender Information Value Date Recorded Sex Assigned at Not on file Gender Identity Not on file Sexual Orientation Not on file documented as of this encounter Plan of Treatment Upcoming Encounters Date Type Department Care Team (Latest Contact Info) Description 05/13/2024 9:[address] [facility] Cardiology - [address] [place] [address] History of aortic valve replacement; Elevated blood pressure reading 05/13/2024 11:[address] [facility] Cardiology - [place] [address] [place] [address] Jose Stauffer MD [address] [place] [address] documented as of this encounter Procedures Procedure Name Priority Date/Time Associated Diagnosis Comments SURGICAL PATHOLOGY Routine 10/15/2017 15 :47 EST documented in this encounter Results * SURGICAL PATHOLOGY (10/15/2017 15:47 EST) Pathology Report: SURGICAL PATHOLOGY REPORT Reports generated via electronic interface contain original data; however they are lacking the format of the original report. Caution should be taken when reading/interpret ing unformatted reports. Name: ? JOSE CHEUNG ? Accession #: ? [id number] ? : ? 1950 (Age: 67) ??M ? Collect Date: ? 10/15/2017 ? Location: ? [facility] ? Receive Date: ? 10/15/2017 ? Provider: EMMA YIP MD Copy to: CONCHITA TIAN MD ? Final Pathologic Diagnosis: A. COLON, ASCENDING, POLYP #1, BIOPSY: - Tubular adenoma. B. COLON, ASCENDING, POLYP #2, BIOPSY: - Fragments of tubular adenoma. Document reviewed and electronically signed by: AUGUSTO CEDILLO MD Report ??Date: 10/16/2017 19:47 By the signature above, the attending physician certifies that he/she has personally conducted a gross and/or microscopic examination of the described specimens and rendered or confirmed the above diagnosis. Specimen(s) Received: A. ??Ascending colon polyp B. ??Ascending colon polyp Clinical History: Colorectal screening Gross Description: A. ?Received in formalin labelled with proper patient identification (initials T, W) and #1 ascending colon polyp is a single pink-nunn tissue fragment (0.2 x 0.2 x 0.2 cm). Submitted intact in A1. B. ?Received in formalin labelled with proper patient identification (initials T, W) and #2 ascending colon polyp are five pink-nunn tissues (0.2 x 0.2 x 0.1 cm to 0.2 x 0.2 x 0.2 cm). Entirely submitted in B1 and B2. GLORIA Burton (ASCP) 10/15/2017 4:18 PM End of Report [facility] 10/15/2017 15:4 7 EST 10/15/2017 15:47 EST Emma Yip MD PATHOLOGY ORDERA LUIS [facility] [address] [place] [address] documented in this encounter Visit Diagnoses Not on filedocumented in this encounter Care Teams Tool Turret Lathe Set Up Operator Relationship Specialty Start Date End Date Unknown, Provider, PCP - General 07/26/15 10/18/17 documented as of this encounter
--- OUTSIDE RECORDS SUMMARY | 2024-05-12 17:07 | XMS_ITS | Encounter Summary ---
Author Organization [facility] [place] [address] Care Team Providers Care Internet Sales Representative Name Role Phone Lorrie Conte MD Primary Care Provider Encounter Details Date Type Department Care Team (Late st Contact Info) Description 10/13/2010 3:00 PM EST [place] [phone] Delta Back PA [facility] [place] [address] Discharge Disposition: Home Social History Tobacco Use Types Packs/Day Years [...] on filedocumented in this encounter Care Teams Internet Sales Representative Relationship Specialty Start Date End Date Lorrie Conte MD [address] [place] [address] [address] [place] [address] PCP - General 08/09/10 documented as of this encounter
--- OUTSIDE RECORDS SUMMARY | 2024-05-12 17:07 | XMS_ITS | Encounter Summary ---
Author Organization [facility] [place] [address] Care Team Providers Care Jump Roll Operator Name Role Phone Lorrie Conte MD Primary Care Provider [phone] Encounter Details Date Type Department Care Team (Late st Contact Info) Description 03/14/2021 Telephone Ophthalmology at [facility] [place] [address] Tita Nicholas, [place] [address] Social History Tobacco Use Types Packs/Day Years [...] on file documented as of this encounter Miscellaneous Notes * Telephone Encounter - Susan Diaz - 03/14/2021 7:43 AM EDT Per AZUL on 03/11 Return in about 4 weeks (around 04/08/2021) for Dr Cristopher valderrama * Telephone Encounter - Malissa Amaya - 03/14/2021 7:43 AM EDT Scheduled documented in this encounter Plan of Treatment Not on file documented as of this encounter Visit Diagnoses Not on filedocumented in this encounter Care Teams Jump Roll Operator Relationship Specialty Start Date End Date Lorrie Cotne MD [address] [place] [address] PCP - General 08/09/10 documented as of this encounter
--- OUTSIDE RECORDS SUMMARY | 2024-05-12 17:07 | XMS_ITS | Encounter Summary ---
Author Organization [facility] [place] [address] Care Team Providers Care Electric Fan Assembler Name Role Phone Lorrie Conte MD Primary Care Provider [phone] Reason for Visit * Reason Comments Fuch's Dystrophy Eight month follow u p: Fuch's, Corneal edema OS, Pseudophakic OU, ERM OU Encounter Details Date Type Department Care Team (Late st Contact Info) Description 06/14/2011 10:30 AM EDT [place] [address] Billy Sadler MD [facility] [place] [address] Fuch's endothelial dystrophy; Status post cataract extraction and insertion of intraocular lens OU Christel; Epiretinal membrane, both eyes Discharge Disposition: Home Social History Tobacco Use Types Packs/Day Years Used Date Smoking Tobacco: Former Cigarettes 0.3 10 0 06/14/1971 - 06/14/1981 Sex and Gender Information Value Date Recorded Sex Assigned at Male 01/10/2021 8:20 PM EDT Gender Identity Not on file Sexual Orientation Not on file documented as of this encounter Patient Instructions * Patient Instructions* Billy Sadler MD - 06/14/2011 11:13 AM EDT For medications not prescribed by the Ophthalmology (Eye) Clinic, please follow up with your PCP (primary care provider) for instructions. documented in this encounter Progress Notes * Billy Sadler MD - 06/14/2011 11:13 AM EDT Encounter Diagnoses Name Primary? Fuch's endothelial dystrophy ??? Status post cataract extraction and insertion of intraocular lens OU Christel ??? Epiretinal membrane, both eyes Jose Fisher is a 60 y.o. with PBK/Fuchs- essentially stable in terms of vision and exam. Not interested in surgery at this time as is caring for mother with dementia. Plan: - MR given - Follow up 6 months or as needed - Findings and concerns discussed with Jose and he expresses understanding. -Upon Return IOP MR documented in this encounter Nursing Notes * 06/14/2011 10:30 AM EDT >> BILLY SADLER MD SunJun 14, 2011 11:13 AM Fuchs with corneal edema OS. Stable from last visit- some good days and bad days. Functioning ok. Sonia OS >> JACK RUIZ SunJun 14, 2011 10:55 AM Description:Patient presents with: Fuch's Dystrophy - Eight month follow up: Fuch's, Corneal edema OS, Pseudophakic OU, ERM OU Location: both eye Duration: unknown Rapidity of Onset:unknown Severity: unknown Condition:No Change Pain:none Associated Symptoms: none documented in this encounter Plan of Treatment Not on file documented as of this encounter Visit Diagnoses Diagnosis Fuch's endothelial dystrophy Endothelial corneal dystrophy Status post cataract extraction and insertion of intraocular lens OU Christel Cataract extraction status Epiretinal membrane, both eyes Macular puckering of retina documented in this encounter Care Teams Electric Fan Assembler Relationship Specialty Start Date End Date Lorrie Conte MD [address] [place] [address] PCP - General 08/09/10 documented as of this encounter
--- OUTSIDE RECORDS SUMMARY | 2024-05-12 17:07 | XMS_ITS | Encounter Summary ---
Author Organization [facility] [place] [address] Care Team Providers Care Stock Preparation Supervisor Name Role Phone Lorrie Conte MD Primary Care Provider [phone] Reason for Visit * Reason Comments Blurred Vision Corneal eval, OS>OD, requested by Dr Kearney Encounter Details Date Type Department Care Team (Late st Contact Info) Description 02/24/2015 3:15 PM EDT Office Visit [place] [address] Billy Sadler MD [facility] [place] [address] Status post cataract extraction and insertion of intraocular lens, unspecified laterality; Fuch's endothelial dystrophy; Epiretinal membrane, both eyes Discharge Disposition: Home [...] * Patient Instructions* Billy Sadler MD - 02/24/2015 4:08 PM EDT Use eye medications as instructed by Dr. Sadler during your appointment. For non eye medications not prescribed by the Ophthalmology (Eye) Clinic, please follow up with your PCP (primary care provider) for instructions. Please call the eye clinic, [phone], for any significant changes in vision, new flashes or floaters or eye pain documented in this encounter Progress Notes * Billy Sadler MD - 02/24/2015 3:58 PM EDT Encounter Diagnoses Name Primary? Status post cataract extraction and insertion of intraocular lens, unspecified laterality ??? Fuch's endothelial dystrophy ??? Epiretinal membrane, both eyes Jose Fisher is a 64 y.o. with PBK/Fuchs- stable in terms of vision and pachy since 2011. Will try glasses rx first before DSAEK as refracts to 20/40 in an eye with 20/30 potential ERM OU: follow CEIOL OD: stable follow Plan: - MR given - Follow up 6 months or as needed - Findings and concerns discussed with Jose and he expresses understanding. -Upon Return IOP MR + Cpachy documented in this encounter Plan of Treatment Not on file documented as of this encounter Procedures Procedure Name Priority Date/Time Associated Diagnosis Comments PACHYMETRY - OU - BOTH EYES Routine 02/24/2015 3:58 PM EDT Fuch's endothelial dystrophy documented in this encounter Results * PACHYMETRY - OU - BOTH EYES (02/24/2015 3:58 PM EDT) Anatomical Region Laterality Modality Other Narrative 02/24/2015 3:58 PM EDT Pachymetry (02/24/2015) ??Right Left Thickness [phone] 06/14/2011: OD - 545 OS - 666 02/24/2015: OD - 559,566,560,566,562 OS - [phone] Billy Sadler MD OPHTHALMOLOGY SERVIC ES ORDERABLES documented in this encounter Visit Diagnoses Diagnosis Status post cataract extraction and insertion of intraocular lens, unspecified laterality Fuch's endothelial dystrophy Endothelial corneal dystrophy Epiretinal membrane, both eyes Macular puckering of retina documented in this encounter Care Teams Stock Preparation Supervisor Relationship Specialty Start Date End Date Lorrie Conte MD [address] [place] [address] PCP - General 08/09/10 documented as of this encounter
--- OUTSIDE RECORDS SUMMARY | 2024-05-12 17:07 | XMS_ITS | Encounter Summary ---
Author Organization [facility] [place] [address] Care Team Providers Care Warp Splitter Name Role Phone Lorrie Conte MD Primary Care Provider [phone] Reason for Visit * Reason Comments Travel Consult Encounter Details Date Type Department Care Team (Latest Contact Info) Description 01/18/2018 2:30 PM EDT Clinical [place] [phone] Charis Miller RN Health care maintenance Social History Tobacco Use Types Packs/Day Years [...] as of this encounter Progress Notes * Charis Miller RN - 01/18/2018 2:30 PM EDT .[facility] Appointment to receive Stamaril Destination: [facility] Date of Departure: 02/23/18 Saranya Holman was referred to [facility] international travel clinic by [employer] [facility] to receive Yellow Fever vaccine through the Stamaril IND protocol. Stamaril available at [facility] during USY-VAX shortage. He/she is referred for the sole purpose of receiving this yellow fever vaccine. The referring Travel Medicine provider has assumed responsibility for all other travel-related immunizations, medications and counseling. This provider reviewed current medications, allergies, problem list and immunization history. The patient was counseled on the contraindications for Stamaril vaccination. Patient has changed itinerary since original visit with [employer]. Will not be traveling to an area at risk for yellow fever. Decision to not do stamaril for this trip. Letter of medical waiver signed by Dr. Talavera given to patient. documented in this encounter Plan of Treatment Not on file documented as of this encounter Visit Diagnoses Diagnosis Health care maintenance Unspecified general medical examination documented in this encounter Care Teams Warp Splitter Relationship Specialty Start Date End Date Lorrie Conte MD [address] [place] [address] PCP - General 08/09/10 documented as of this encounter
--- OUTSIDE RECORDS SUMMARY | 2024-05-12 17:07 | XMS_ITS | Encounter Summary ---
Author Organization [facility] Address [address] [place] [address] Care Team Providers Care Av Specialist Name Role Phone Unknown, Provider Primary Care Provider Encounter Details Date Type Department Care Team (Late st Contact Info) Description 08/28/2016 Results Only [facility] [phone] Corina Pineda, [address] [place] [address] Social History Tobacco Use Types Packs/Day Years Used Date Smoking Tobacco: Never Assessed Sex and Gender Information Value Date Recorded Sex Assigned at Not on file Gender Identity Not on file Sexual Orientation Not on file documented as of this encounter Plan of Treatment Upcoming Encounters Date Type Department Care Team (Latest Contact Info) Description 05/13/2024 9:15 EDT Ancillary Procedure [facility] Cardiology - [facility] [place] [address] History of aortic valve replacement; Elevated blood pressure reading 05/13/2024 11:00 EDT Office Visit [facility] Cardiology [place] [address] Jose Stauffer MD [address] [facility] [facility] [address] [place] [address] documented as of this encounter Procedures Procedure Name Priority Date/Time Associated Diagnosis Comments SURGICAL PATHOLOGY Routine 08/28/2016 10 :58 EST documented in this encounter Results * SURGICAL PATHOLOGY (08/28/2016 10:58 EST) Pathology Report: SURGICAL PATHOLOGY REPORT Reports generated via electronic interface contain original data; however they are lacking the format of the original report. Caution should be taken when reading/interpret ing unformatted reports. Name: ? JOSE CHEUNG ? Accession #: ? [id number] ? : ? 1950 (Age: 66) ??M ? Collect Date: ? 08/28/2016 ? Location: ? [facility] ? Receive Date: ? 08/29/2016 ? Provider: CORINA PINEDA DO Copy to: CONCHITA TIAN MD ? Final Pathologic Diagnosis: SKIN OF CHEEK, RIGHT LATERAL, SHAVE BIOPSIES: - Actinic keratosis. - Lesion extends to biopsy edge and base. ?? Document reviewed and electronically signed by: KELLI CHAPMAN MD Report ??Date: 08/30/2016 15:25 By the signature above, the attending physician certifies that he/she has personally conducted a gross and/or microscopic examination of the described specimens and rendered or confirmed the above diagnosis. Specimen(s) Received: Rt lateral cheek Clinical History: Nonhealing skin lesion Gross Description: ? Received in formalin labelled with proper patient identification (initials T, W) and right lateral cheek is a shave biopsy of white-nunn granular skin (0.7 x 0.5 x 0.1 cm). Also received in the specimen container is a separate shave biopsy measuring 0.5 x 0.4 x 0.1 cm. The 0.7 cm piece is bisected and submitted in 1 and the 0.5 cm fragment is submitted intact in 2. Dr. Redmond 08/29/2016 1:44 PM End of Report [facility] 08/28/2016 10:5 8 EST 08/29/2016 10:58 EST Corina Pineda DO PATHOLOGY ORDER MORGAN [facility] [address] [place] [address] documented in this encounter Visit Diagnoses Not on filedocumented in this encounter Care Teams Av Specialist Relationship Specialty Start Date End Date Unknown, Provider, PCP - General 07/26/15 10/18/17 documented as of this encounter
--- OUTSIDE RECORDS SUMMARY | 2024-05-12 17:07 | XMS_ITS | Encounter Summary ---
Author Organization [facility] [place] [address] Care Team Providers Care Instructional Support Technician Name Role Phone Lorrie Conte MD Primary Care Provider [phone] Encounter Details Date Type Department Care Team (Latest Contact Info) Description 07/31/2023 Travel Social History Tobacco Use Types Packs/Day [...] on filedocumented in this encounter Care Teams Instructional Support Technician Relationship Specialty Start Date End Date Lorrie Conte MD [address] [place] [address] PCP - General 08/09/10 documented as of this encounter
--- OUTSIDE RECORDS SUMMARY | 2024-05-12 17:07 | XMS_ITS | Encounter Summary ---
Author Organization [facility] [place] [address] Care Team Providers Care Zoology Teacher Name Role Phone Lorrie Conte MD Primary Care Provider [phone] Reason for Visit * Reason Onset Date Comments Medication Refill 07/05/2021 Encounter Details Date Type Department Care Team (Late st Contact Info) Description 07/05/2021 [place] [address] Billy Sadler MD [facility] [place] [address] Glaucoma suspect, both eyes (Primary Dx) Social History Tobacco Use Types [...] encounter Visit Diagnoses Diagnosis Glaucoma suspect, both eyes- Primary Preglaucoma, unspecified documented in this encounter Care Teams Zoology Teacher Relationship Specialty Start Date End Date Lorrie Conte MD [address] [place] [address] PCP - General 08/09/10 documented as of this encounter
--- OUTSIDE RECORDS SUMMARY | 2024-05-12 17:07 | XMS_ITS | Encounter Summary ---
Author Organization [facility] [place] [address] Care Team Providers Care Ocular Care Technologist Name Role Phone Lorrie Conte MD Primary Care Provider [phone] Reason for Visit * Reason Comments Glaucoma Suspect Encounter Details Date Type Department Care Team (Late st Contact Info) Description 07/05/2021 8:00 AM EDT Office [place] [address] Wolfgang Aguila MD [facility] [place] [address] Glaucoma suspect, both eyes Social History Tobacco [...] this encounter Patient Instructions * Patient Instructions* Wolfgang Aguila MD - 07/05/2021 8:00 AM EDT Continue latanoprost, aqua cap, both eyes at bedtime. Start timolol, yellow cap, on left. Use both eyes twice a day now. Start wilder ointment, 1/4 inch, in left eye at bedtime. Start wilder drops, 1 drop left, 4 times a day. documented in this encounter Progress Notes * Wolfgang Aguila MD - 07/05/2021 8:00 AM EDT Glaucoma suspect OU: History of ocular hypertension OD>OS with healthy optic nerve OU on exam. Difficult to explain poor vision as symptomatic glaucoma. View OS limited by marginal dilation and corneal edema but OCT from December corroborates exam. HVF full OD. Localized defect on left suggests neurologic possibility but no homonymous features. Corneal edema localized to nasal half of cornea, impinging on visual axis, also consistent with HVF result. Pinhole improvement also supports at least some contribution to media opacity. Plan: Will aggressively treat corneal edema. Add timolol OS, now use OU bid. Continue latanoprost. Add wilder solution qid and ointment at bedtime. Recheck in 3 weeks. documented in this encounter Plan of Treatment Not on file documented as of this encounter Procedures Procedure Name Priority Date/Time Associated Diagnosis Comments AUTOMATED VISUAL FIELD - EXTENDED - OU- BOTH EYES Routine 07/05/2021 10:14 AM EDT Glaucoma suspect, both eyes documented in this encounter Results * Automated Visual Field - Extended - OU - Both Eyes (07/05/2021 10:14 AM EDT) Anatomical Region Laterality Modality Other Narrative 07/05/2021 10:14 AM EDT Right Eye Threshold was 24-2. Strategy was JARET. Left Eye Threshold was 24-2. Strategy was JARET. Notes Reliability Numerous fixation losses OU, few false positives OD VFI: ??99 OD/ 75 OS MD: ??+0.72 OD/ -10.59 OS PSD: ??2.15 OD/ 4.51 OS Interpretation: ??Grossly full OD/ General decrease, Superior and inferior nasal defects respecting vertical midline OS Wolfgang Aguila MD OPHTHALMOLOGY SERVIC ES ORDERABLES documented in this encounter Visit Diagnoses Diagnosis Glaucoma suspect, both eyes Preglaucoma, unspecified documented in this encounter Care Teams Ocular Care Technologist Relationship Specialty Start Date End Date Lorrie Conte MD [address] [place] [address] PCP - General 08/09/10 documented as of this encounter
--- OUTSIDE RECORDS SUMMARY | 2024-05-12 17:07 | XMS_ITS | Encounter Summary ---
Author Organization [facility] Address [address] [place] [address] Care Team Providers Care Print Operator Name Role Phone Lorrie Conte MD Primary Care Provider [phone] Reason for Visit * Reason Comments Shortness of Breath Encounter Details Date Type Department Care Team (Latest Contact Info) Description 05/14/2019 10:00 EDT Office Visit [facility] Cardiology - [address] [place] [address] Jose Stauffer MD [address] [place] [address] [place] [phone] Acute diastolic heart failure (HCC-CMS) (Primary Dx); Severe aortic regurgitation Discharge Disposition: Home or Self Care Social History Tobacco Use Types Packs/Day Years Used Date Smoking Tobacco: Never Assessed Sex and Gender Information Value Date Recorded Sex Assigned at Not on file Gender Identity Not on file Sexual Orientation Not on file documented as of this encounter Last Filed Vital Signs Vital Sign Reading Time Taken Comments Blood Pressure 138/66 05/14/2019924 EDT Pulse 74 05/14/2019924 EDT Temperature - - Respiratory Rate - - Oxygen Saturation 97% 05/14/2019924 EDT Inhaled Oxygen Concentration - - Weight 76.2 kg (168 lb) 05/14/2019924 EDT Height 167.6 cm (5' 6) 05/14/2019 09 EDT Body Mass Index 27.12 05/14/2019 0925 EDT documented in this encounter Functional Status [...] 05/14/2019 documented as of this encounter Discharge Disposition Disposition Code Departure Means Destination Home or Self Care documented in this encounter Progress Notes * Jose Stauffer MD, MD - 05/14/2019 1000 EDT This office note has been dictated. * Jose Stauffer MD, MD - 05/14/2019 0000 EDT [facility] CARDIOLOGY NEW PATIENT EVALUATION - 05/14/2019 Lorrie [place] [address] Conte: On 05/14/2019, at your request, I saw Jose Fisher in consultation in our cardiology office. Mr Fisher now has severe and progressive shortness of breath. An echocardiogram performed at [facility] (05/08/2019) revealed severe aortic regurgitation. Mr Fisher was accompanied by 2 of his daughters on today's visit. In December or January of this year, he had a diarrheal illness with associated fevers. He subsequently developed oral thrush. In March, he was diagnosed with HIV. He saw Javid Parker DO from our infectious disease group on 05/05/2019. In addition, Mr Fisher notes that over the last 2 months, he has developed severe and progressive exertional shortness of breath. He can only walk short distances. He has had significant orthopnea and paroxysmal nocturnal dyspnea to the point where he can barely lay back at all and has great difficulty sleeping. He has had some mild lower extremity edema. He has not had syncope, near syncope, tachypalpitations or obvious exertional chest pain or pressure. Mr Fisher had an echocardiogram performed in 2017 because of some tachypalpitations. He was not told that there were any abnormalities. Other than that, he has had no previous issues related to his heart. Past medical history: 1. HIV, with acute retroviral syndrome (spring/summer 2018) and oral and esophageal candidiasis. 2. Benign prostatic hypertrophy. 3. Thrombocytopenia without a known definitive cause. 4. Bilateral chronic uveitis (followed at [facility]). Social history: He has 3 daughters. 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 He quit smoking many decades ago. Herarely drinks alcohol and does not use any illicit drugs nor does he use marijuana. Family history: Noncontributory. Review of Systems: 1. Coronary risk factors: He denies diabetes mellitus, hypertension and hyperlipidemia. He quit smoking many decades ago and did not smoke much prior to that. 2. Other than the fevers in December and January, he has not had recent fevers, chills or night sweats. 3. He has no history of rheumatoid arthritis, scleroderma, lupus, ankylosing spondylitis, psoriasisor any other known inflammatory arthritis. Medications: BIKTARVY 1 tab daily. Fluconazole 100 mg daily. Flomax 0.4 mg daily. Allergies: None known. Objective: Pleasant gentleman who is comfortable, sitting upright. He was markedly distressed when lying back on a stretcher for examination. Vitals: Blood pressure 138/66, heart rate 74 (regular), oxygen saturation 97% on room air, weight 168 pounds, height 66 inches and BMI 27.1. HEENT: Anictericsclerae, normal conjunctivae, oral thrush. Neck: Normal size. Chest: No scars. Lungs: A few crackles in both bases. There were no wheezes. Cardiovascular: No obvious jugular venous distention. Carotids: Bounding upstrokes. Palpation: I was unable to palpate his apical impulse. There was no thrill. Auscultation: Distant heart sounds. There was a very soft diastolic murmur heard over the mid sternum. Abdomen: Soft and nontender. There was no obvious hepatosplenomegaly. Extremities: No clubbing orcyanosis. There was trace pedal edema. Bilateral posterior tibial, radial and brachial pulses had abounding quality. Diagnostic testing: Echocardiogram ([facility]; 05/08/2019): I reviewed the entire study. Left ventricular size and systolic function were normal. His ejection fraction was approximately 55%.Right ventricular size and function were normal. Mitral, tricuspid and pulmonic valves were all normal. There was a mild increase in his pulmonary artery pressure with a systolic of approximately 45 m mHg. His aortic valve appeared trileaflet. There was an eccentric jet of aortic regurgitation. Diastolic flow reversal in the aortic arch was consistent with severe aortic regurgitation. Assessment and Plan: Jose Fisher is a 68-year-old gentleman with acute diastolic heart failure (heart failure with preserved ejection fraction; HFpEF) secondary to severe aortic regurgitation. The etiology of the aortic regurgitation is not obvious to me. He had a febrile illness earlier this spring/early summer, but does not have a clinical presentation suggestive of endocarditis at this point. He does not have an inflammatory arthritis, which can be associated with aortitis and valvulitis. I know of no association between acute human immunodeficiency virus infections and aortic valve disease. I had a long talk with Mr Fisher and his daughters. We decided to admit him to the hospital with a diagnosis of acute diastolic heart failure. He will undergo further evaluation and management. We will do our best to keep you abreast of our thoughts and action plans. Please feel free to contact me with any questions or concerns. Sincerely, Jose Stauffer MD 10 46 AM - Jose Stauffer MD tn Dictation ID: [id number] cc: Lorrie Conte MD, [place] [address] documented in this encounter Plan of Treatment Upcoming Encounters Date Type Department Care Team (Latest Contact Info) Description 05/13/2024 9:15 EDT Ancillary Procedure [facility] Cardiology - [place] [address] History of aortic valve replacement; Elevated blood pressure reading 05/13/2024 11:00 EDT Office Visit [facility] Cardiology - [place] [address] [facility] [place] [address] Jose Stauffer MD [address] [facility] [address] [place] [address] documented as of this encounter Visit Diagnoses Diagnosis Acute diastolic heart failure ([facility])- Primary Acute diastolic heart failure Severe aortic regurgitation Aortic valve disorders History of aortic valve replacement Heart valve replaced by other means Elevated blood pressure reading Elevated blood pressure reading without diagnosis of hypertension documented in this encounter Historical Medications * This list may reflect changes made after this encounter. Medication Sig Dispensed Refills Start Date End Date tamsulosin (FLOMAX) 0.4 mg capsule Take 1 Capsule by mouth daily. Take one capsule by mouth every day 30 minutes after the same mealtime each day for prostate/urinary symptoms. bictegravir-emtricitabin e-tenofovir alafenamide (BIKTARVY) 50-200-25 mg per tablet Take 1 Tab by mouth daily. 10/06/2020 fluconazole (DIFLUCAN) 100 mg tablet Take 100 mg by mouth every 48 hours. 02/22/2021 added in this encounter Care Teams Print Operator Relationship Specialty Start Date End Date Lorrie Conte MD PCP - General 10/19/17 documented as of this encounter
--- OUTSIDE RECORDS SUMMARY | 2024-05-12 17:07 | XMS_ITS | Encounter Summary ---
[place] [address] Care Team Providers Care Air Conditioning Insulation Installer Name Role Phone Lorrie Conte MD Primary Care Provider [phone] Encounter Details Date Type Department Care Team (Late st Contact Info) Description 09/30/2010 2:15 PM EST Follow-[place] [address] Billy Sadler MD [facility] [place] [address] Discharge Disposition: Home Social History Tobacco Use [...] on filedocumented in this encounter Care Teams Air Conditioning Insulation Installer Relationship Specialty Start Date End Date Lorrie Conte MD [address] [place] [address] [address] [place] [address] PCP - General 08/09/10 documented as of this encounter
--- OUTSIDE RECORDS SUMMARY | 2024-05-12 17:07 | XMS_ITS | Encounter Summary ---
Author Organization [facility] [place] [address] Care Team Providers Care Animal Care Assistant Name Role Phone Lorrie Conte MD Primary Care Provider [phone] Reason for Referral * Consultation (Routine) - Closed Specialty Diagnoses / Procedures Referred By Nishi petit Referred To Contact Diagnoses Fuchs' corneal dystrophy of left eye Rosio Palomares MD [facility] [place] [address] Mikie Huggins MD [address] [place] [phone] Referral ID Status Reason Start Date Expiration Date V isits Requested Visits Authorized [id number] Closed Consult, Test & Treat 08/24/2021 02/20/2022 1 1 Reason for Visit * Reason Comments Glaucoma Suspect Encounter Details Date Type Department Care Team (Late st Contact Info) Description 08/23/2021 2:45 PM EST Office [place] [address] Rosio Palomares MD [facility] [place] [address] Fuchs' corneal dystrophy of left eye; Glaucoma suspect, both eyes Social History Tobacco [...] as of this encounter Progress Notes * Rosio Palomares MD - 08/23/2021 2:45 PM EST PBK OS: Symptomatic improvement with wilder and IOP lowering however measured acuity stable. Out of latanoprost so no further IOP reduction on addition of brimonidine. Glaucoma suspect OU: Ocular hypertension OD with healthy optic nerve. Unknown nerve status OS due to poor view and visual field defects likely due to corneal pathology. IOP above target OD without latanoprost. Plan: Would add brimonidine OD, continue OS and continue timolol OU. Hold off latanoprost for now as irritation symptoms. Would like cornea referral to [place]. Will give IOP check with me in 2-3 months but may defer if being seen with other providers at same time. documented in this encounter Miscellaneous Notes * Addendum Note - Rosio Palomares MD - 08/23/2021 2:45 PM ESTAddended by: ROSIO PALOMARES on: 08/24/2021 01:17 PM Modules accepted: Orders documented in this encounter Plan of Treatment Scheduled Referrals Name Type Priority Associated Diagnoses Order Schedule Referral to Ophthalmology Outpatient Referral Routine Fuchs' corneal dystrophy of left eye Ordered: 08/24/2021 documented as of this encounter Visit Diagnoses Diagnosis Fuchs' corneal dystrophy of left eye Glaucoma suspect, both eyes Preglaucoma, unspecified documented in this encounter Care Teams Animal Care Assistant Relationship Specialty Start Date End Date Lorrie Conte MD [address] [place] [address] PCP - General 08/09/10 documented as of this encounter
--- OUTSIDE RECORDS SUMMARY | 2024-05-12 17:07 | XMS_ITS | Encounter Summary ---
Author Organization [facility] Address [facility] [place] [address] Care Team Providers Care V Belt Inspector Name Role Phone Lorrie Conte MD Primary Care Provider [phone] Reason for Visit * Reason Comments Uveitis Fuch's Dystrophy * Consultation (Routine) - Specialty Diagnoses / Procedures Referred By Nishi petit Referred To Contact Ophthalmology Diagnoses Unspecified iridocyclitis iridocyclitis Lorrie Conte MD [address] [place] [address] [address] [place] [address] Billy Sadler MD [facility] [address] Referral ID Status Reason Start Date Expiration Date V isits Requested Visits Authorized [id number] Consult, Test & Treat PCP Updated and/or Approved 08/19/2020 02/17/2021 6 6 Encounter Details Date Type Department Care Team (Late st Contact Info) Description 12/21/2020 10:00 AM EDT Office [place] [address] Billy Sadler MD [facility] [address] Fuchs' corneal dystrophy; Ocular hypertension, unspecified laterality Social History Tobacco Use Types [...] * Patient Instructions* Billy Sadler MD - 12/21/2020 10:00 AM EDT Medications: Use eye medications as [...] Progress Notes * Billy Sadler MD - 12/21/2020 10:00 AM EDT Encounter Diagnosis Name Primary? Fuchs' corneal dystrophy Jose Fisher is a 70 y.o. with Ocular htn OD>OS: start X 09/17 PBK/Fuchs- Follow. Some of the changes in pachy OS likely related to Salzmann nodule Salzmann's like changes OS: He definitely has edema OS but there is an area which looks like there is some degree of Salzmann's like changes. Discussed possible SK. He declines for now but knows its an option. ERM OU: follow CEIOL OU: stable follow Remote history of uveitis: quiet Plan: - Follow up 1 months or as needed - Findings and concerns discussed with Jose and he expresses understanding. -Upon Return Epf, + ant seg OCT of OS cornea, and glaucoma OCT OU documented in this encounter Plan of Treatment Not on file documented as of this encounter Procedures Procedure Name Priority Date/Time Associated Diagnosis Comments US B-SCAN - OU - BOTH EYES Routine 12/21/2020 11:40 AM EDT Fuchs' corneal dystrophy documented in this encounter Results * US B-Scan - OU - Both Eyes (12/21/2020 11:40 AM EDT) Anatomical Region Laterality Modality Other Narrative 12/21/2020 11:40 AM EDT Recent Pachymetry Date Noted Right Eye Left Eye 12/21/2020 555 668 02/24/2015 562 651 06/14/2011 545 666 Billy Sadler MD OPHTHALMOLOGY SERVIC ES ORDERABLES documented in this encounter Visit Diagnoses Diagnosis Fuchs' corneal dystrophy Endothelial corneal dystrophy Ocular hypertension, unspecified laterality documented in this encounter Care Teams V Belt Inspector Relationship Specialty Start Date End Date Lorrie Conte MD [address] [place] [address] PCP - General 08/09/10 documented as of this encounter
--- OUTSIDE RECORDS SUMMARY | 2024-05-12 17:07 | XMS_ITS | Encounter Summary ---
Author Organization [facility] [place] [address] Care Team Providers Care Shampoo Person Name Role Phone Lorrie Conte MD Primary Care Provider [phone] Reason for Visit * Reason Comments Blurred Vision Refractive Error Encounter Details Date Type Department Care Team (Late st Contact Info) Description 04/25/2021 3:20 PM EDT Office Visit Ophthalmology at [facility] [place] [address] Tita Nicholas [place] [address] Blurry vision, left eye Social History Tobacco [...] this encounter Patient Instructions * Patient Instructions* Tita Nicholas OD - 04/25/2021 3:20 PM EDT Images from the original note were not included. Use Refresh Plus preservative-free artificial tears 6-8x/day OS documented in this encounter Progress Notes * Tita Nicholas OD - 04/25/2021 3:20 PM EDT Jose Fisher is a 70 y.o. male who had concerns including Blurred Vision and Refractive Error. Sent by Dr. Sadler for refraction. Central corneal haze causing irregular astigmatism and likely limiting his visual acuity. Irregular epithelium with +FL staining inferior nasal. Unable to significantly improve his visual acuity with updated refraction or hard CL over-refraction today OS. Encounter Diagnoses Name Primary? 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 * Central haze, irregular epi with +FL staining IN - reports severe stinging when using LTN OS * No significant improvement with scleral lens over-refraction today OS, vision only up to 20/80 Plan: Unable to improve vision OS with updated refraction or scleral lens today. Continue Latanoprost OS despite severe pain and discomfort - this note to Dr. Sadler. Start Refresh Plus ATs 6-8x/day OS. F/U with Dr. Sadler in 2-3 weeks. documented in this encounter Plan of Treatment Not on file documented as of this encounter Visit Diagnoses Diagnosis Blurry vision, left eye Other specified visual disturbances documented in this encounter Care Teams Shampoo Person Relationship Specialty Start Date End Date Lorrie Conte MD [address] [place] [address] PCP - General 08/09/10 documented as of this encounter
--- OUTSIDE RECORDS SUMMARY | 2024-05-12 17:07 | XMS_ITS | Encounter Summary ---
Author Organization [facility] [place] [address] Care Team Providers Care Radiology Tech Name Role Phone Lorrie Conte MD Primary Care Provider [phone] Encounter Details Date Type Department Care Team (Latest Contact Info) Description 05/05/2024 Travel Social History Tobacco Use Types Packs/Day [...] on filedocumented in this encounter Care Teams Radiology Tech Relationship Specialty Start Date End Date Lorrie Conte MD [address] [place] [address] PCP - General 08/09/10 documented as of this encounter
--- OUTSIDE RECORDS SUMMARY | 2024-05-12 17:07 | XMS_ITS | Encounter Summary ---
[place] [address] Care Team Providers Care Biologist Aide Name Role Phone Lorrie Conte MD Primary Care Provider [phone] Encounter Details Date Type Department Care Team (Late st Contact Info) Description 12/31/2017 Abstract [place] [address] Janice Santo, RN Social History Tobacco Use Types Packs/Day Years [...] on filedocumented in this encounter Care Teams Biologist Aide Relationship Specialty Start Date End Date Lorrie Conte MD [address] [place] [address] [address] [facility] [place] [address] PCP - General 08/09/10 documented as of this encounter
--- OUTSIDE RECORDS SUMMARY | 2024-05-12 17:07 | XMS_ITS | Encounter Summary ---
Author Organization [facility] Address [address] [place] [address] Care Team Providers Care Station Air Traffic Control Specialist Name Role Phone Unknown, Provider Primary Care Provider Encounter Details Date Type Department Care Team (Latest Contact Info) Description 10/15/2017 10:30 EST - 10/15/2017 23:59 EST Hospital Encounter [address] [address] Unknown, Provider, Discharge Disposition: Home or Self Care Social History Tobacco Use Types Packs/Day Years Used Date Smoking Tobacco: Never Assessed Sex and Gender Information Value Date Recorded Sex Assigned at Not on file Gender Identity Not on file Sexual Orientation Not on file documented as of this encounter Discharge Disposition Disposition Code Departure Means Destination Home or Self Nursing Home documented in this encounter Plan of Treatment Upcoming Encounters Date Type Department Care Team (Latest Contact Info) Description 05/13/2024 9:15 EDT Ancillary Procedure [facility] Cardiology - [facility] [place] [address] History of aortic valve replacement; Elevated blood pressure reading 05/13/2024 11:00 EDT Office Visit [facility] Cardiology - [address] [place], [place] [id number] Jose Stauffer MD [address] [place] [address] documented as of this encounter Visit Diagnoses Not on filedocumented in this encounter Care Teams Station Air Traffic Control Specialist Relationship Specialty Start Date End Date Unknown, Provider, PCP - General 07/26/15 10/18/17 documented as of this encounter
--- OUTSIDE RECORDS SUMMARY | 2024-05-12 17:07 | XMS_ITS | Encounter Summary ---
Author Organization [facility] Address [facility] [place] [address] Care Team Providers Care Cattle Dipper Name Role Phone Lorrie Conte MD Primary Care Provider [phone] Reason for Visit * Reason Onset Date Comments Medication Problem 02/18/2021 Conflicting s ig Encounter Details Date Type Department Care Team (Late st Contact Info) Description 02/18/2021 [place] [address] Billy Sadler MD [facility] [place] [address] Salzmann's nodular dystrophy, left Social History Tobacco Use Types Packs/Day Years [...] encounter Miscellaneous Notes * Telephone Encounter - Loulou Monsivais COT - 02/18/2021 4:01 PM EDT Per office note; should be TID Disp Refills Start End ciprofloxacin (CILOXAN) 0.3 % Drops 5 mL 1 02/18/2021 Sig - Route: Place 1 drop into the left eye 3 times daily. OS QID - Left Eye Sent to pharmacy as: ciprofloxacin 0.3 % Drops E-Prescribing Status: Receipt confirmed by pharmacy (02/18/2021 ??1:29 PM EDT) documented in this encounter Plan of Treatment Not on file documented as of this encounter Visit Diagnoses Diagnosis Salzmann's nodular dystrophy, left documented in this encounter Care Teams Cattle Dipper Relationship Specialty Start Date End Date Lorrie Conte MD [address] [place] [address] PCP - General 08/09/10 documented as of this encounter
--- OUTSIDE RECORDS SUMMARY | 2024-05-12 17:07 | XMS_ITS | Encounter Summary ---
Author Organization [facility] [place] [address] Care Team Providers Care Recovery Assistant Name Role Phone Lorrie Conte MD Primary Care Provider [phone] Reason for Visit * Reason Comments Eye Problem corneal edema os,psp h ou iris fixation os,erm ou,iridocyclitis ou Encounter Details Date Type Department Care Team (Late st Contact Info) Description 09/19/2011 12:45 PM EST Follow-[place] [address] Billy Sadler MD [facility] [place] [address] Fuch's endothelial dystrophy; Status post cataract extraction [...] * Patient Instructions* Billy Sadler MD - 09/19/2011 1:33 PM EST For medications not prescribed by the Ophthalmology (Eye) Clinic, please follow up with your PCP (primary care provider) for instructions. documented in this encounter Progress Notes * Billy Sadler MD - 09/19/2011 1:33 PM EST Encounter Diagnoses Name Primary? Fuch's endothelial dystrophy ??? Status post cataract extraction and insertion of intraocular lens OU Christel ??? Epiretinal membrane, both eyes Jose Fisher is a 61 y.o. with PBK/Fuchs- essentially stable in terms of vision and exam. Not interested in surgery at this time as is caring for mother with dementia. Plan: - Continue wilder - Follow up 6 months or as needed - Findings and concerns discussed with Jose and he expresses understanding. -Upon Return IOP HORTENSIA OS Dilate OU. MR documented in this encounter Nursing Notes * 09/19/2011 12:45 PM EST >> BILLY SADLER MD pita Sep 19, 2011 1:33 PM Here because now interested in corneal transplant OS. No changes in eye or health since last visit. >> GIUSEPPE GALDAMEZ Tupita Sep 19, 2011 1:20 PM Description:Patient presents with: Eye Problem - corneal edema os,psph ou iris fixation os,erm ou,iridocyclitis ou,fuchs Location: left cornea Duration: ongoing Rapidity of Onset:gradual Severity: per dx Condition:pt doesn't notice any change Pain:none Modifying Factors: as above Associated Symptoms:pt to discuss k trans. No new changes since visit 1 year ago. documented in this encounter Plan of Treatment Not on file documented as of this encounter Visit Diagnoses Diagnosis Fuch's endothelial dystrophy Endothelial corneal dystrophy Status post cataract extraction and insertion of intraocular lens OU Christel Cataract extraction status Epiretinal membrane, both eyes Macular puckering of retina documented in this encounter Care Teams Recovery Assistant Relationship Specialty Start Date End Date Lorrie Conte MD [address] [place] [address] PCP - General 08/09/10 documented as of this encounter
--- OUTSIDE RECORDS SUMMARY | 2024-05-12 17:07 | XMS_ITS | Encounter Summary ---
Author Organization [facility] [place] [address] Care Team Providers Care Alpaca Farmer Name Role Phone Lorrie Conte MD Primary Care Provider [phone] Encounter Details Date Type Department Care Team (Late st Contact Info) Description 04/26/2021 [place] [address] Billy Sadler MD [facility] [place] [address] Social History Tobacco Use Types Packs/Day Years [...] encounter Miscellaneous Notes * Telephone Encounter - Bertha Adrian - 04/27/2021 9:19 AM EDT Patient returned call and scheduled * Telephone Encounter - Malissa Amaya - 04/26/2021 8:32 AM EDT LM for patient to call to schedule return in about 2 weeks (around 05/09/2021) for Dr. Sadler EPKishore (per KJ). Per Bertha, there is a f/u open on 05/06, or ok to schedule on [facility] on-call week (week of 05/09) documented in this encounter Plan of Treatment Not on file documented as of this encounter Visit Diagnoses Not on filedocumented in this encounter Care Teams Alpaca Farmer Relationship Specialty Start Date End Date Lorrie Conte MD [address] [place], [place] [address] [facility] [address] [place] [address] PCP - General 08/09/10 documented as of this encounter
--- OUTSIDE RECORDS SUMMARY | 2024-05-12 17:07 | XMS_ITS | Encounter Summary ---
Author Organization [facility] [place] [address] Care Team Providers Care Home Care Giver Name Role Phone Lorrie Conte MD Primary Care Provider Reason for Visit * Reason Comments Glaucoma Suspect Encounter Details Date Type Department Care Team (Late st Contact Info) Description 07/27/2021 12:45 PM EST Office [place] [address] Wolfgang Aguila MD [facility] [place] [address] Fuchs' corneal dystrophy of left eye Social History Tobacco Use [...] Progress Notes * Wolfgang Aguila MD - 07/27/2021 12:45 PM EST Corneal edema OS: Likely improved given symptomatic improvement and better acuity today. Not much IOP lowering from timolol OS so likely Sonia effect. Plan: Add brimonidine OS bid, IOP check 3-4 weeks. If improved and IOP lower may stop timolol OU, add brimonidine to OD if IOP elevates. documented in this encounter Plan of Treatment Not on file documented as of this encounter Visit Diagnoses Diagnosis Fuchs' corneal dystrophy of left eye documented in this encounter Care Teams Home Care Giver Relationship Specialty Start Date End Date Lorrie Conte MD [address] [place] [address] PCP - General 08/09/10 documented as of this encounter
[2024-05-12 17:49] LABS: ALT 27 U/L (16-63); AST 29 U/L (15-37); Albumin 3.8 g/dL (3.4-5.0); Alkaline Phosphatase 76 U/L (46-116); Anion Gap 10.9 mmol/L (3-11); BUN 21 mg/dL (7-18); Bilirubin, Total 1.41 mg/dL (0.2-1.0); CO2 25.1 mmol/L (21.0-32.0); CREATININE 1.2 mg/dL (0.70-1.30); Calcium 8.9 mg/dL (8.5-10.1); Chloride 105 mmol/L (98-107); Estimated GFR 63.85 (mL/min/1.73m2); Glucose 98 mg/dL (74-106); Potassium 4.2 mmol/L (3.5-5.1); Sodium 141 mmol/L (136-145); Total Protein 6.6 g/dL (6.4-8.2)
[2024-05-13 19:27] LABS: PSA, Diagnostic 3.3 ng/mL (<=6.5)
[2024-05-14 15:21] LABS: 4/8 Ratio 1.68 (>=0.90); Absolute CD3 1003 Cells/uL (840-2669); Absolute CD8 375 Cells/uL (154-1097); CD3 71 % (56-84); CD4 45 % (31-64); CD8 27 % (9-39)
[2024-05-15 15:58] LABS: HIV 1 RNA Qualitative Detected Copys/mL (Undetected); HIV 1 RNA Quantitative <20 Copys/mL (Undetected)
== END 2024-05-12 17:00 | disposition home or self-care (01) ==
LOC: LBO 17:02
PROVIDERS: PCP Family Medicine; Visit Provider Nurse Practitioner Family
DX: N40.0 Benign prostatic hyperplasia without lower urinary tract symptoms (principal); B20 Human immunodeficiency virus [HIV] disease
CPT/HCPCS: 36415; 80053; 87536; 84153; 85025; 86359; 86360

== ENCOUNTER → 2024-07-01 14:46 | Outpatient (BNVA) | payer MEDICARE, OTHER, SELFPAY | PROVIDERS: PCP Family Medicine; Referring Provider Family Medicine; Visit Provider Physician Assistant Surgical | DX: J45.909 Unspecified asthma, uncomplicated (principal); G70.9 Myoneural disorder, unspecified; J99 Respiratory disorders in diseases classified elsewhere; B20 Human immunodeficiency virus [HIV] disease | CPT/HCPCS: 99214 ==

== ENCOUNTER 2024-10-13 16:24 | Outpatient (CLI) | payer MEDICARE, OTHER, SELFPAY ==
[2024-10-13 16:30] LABS: Abs Immature Grans 0.01 10^3/uL (0.0-0.06); Absolute Basophil Count 0.05 10^3/uL (0.0-0.2); Absolute Eosinophil Count 0.05 10^3/uL (0.0-0.7); Absolute Lymphocyte Count 1.88 10^3/uL (1.2-3.4); Absolute Monocyte Count 0.49 10^3/uL (0.1-0.8); Absolute Neutrophil Count 2.67 10^3/uL (1.2-6.7); HCT 45.4 % (40.0-50.0); HGB 15.2 g/dL (13.5-17.5); Immature Grans % 0.2 %; Lymphocytes % 36.5 %; MCHC 33.5 % (32.0-36.0); MCV 99 fL (80-95); MPV 11.2 fL (8.0-11.0); Monocytes % 9.5 %; Neutrophils % 51.8 %; RBC 4.61 10^6/uL (4.36-5.78); RDW 12.1 % (11.8-14.1); RDW-SD 43.6 fL; WBC 5.15 10^3/uL (4.4-10.8)
[2024-10-13 16:42] LABS: Platelet Count 92 10^3/uL (130-400)
[2024-10-13 17:26] LABS: ALT 39 U/L (16-63); AST 33 U/L (15-37); Albumin 3.5 g/dL (3.4-5.0); Alkaline Phosphatase 86 U/L (46-116); Anion Gap 8.4 mmol/L (3-11); BUN 17 mg/dL (7-18); Bilirubin, Total 0.78 mg/dL (0.2-1.0); CO2 29.6 mmol/L (21.0-32.0); CREATININE 1.3 mg/dL (0.70-1.30); Calcium 8.8 mg/dL (8.5-10.1); Calculated LDL 2 mg/dL (<100); Chloride 104 mmol/L (98-107); Cholesterol 86 mg/dL (<200); Estimated GFR 57.65 (mL/min/1.73m2); Glucose 136 mg/dL (74-106); HDL Cholesterol 41 mg/dL (40-60); Potassium 3.9 mmol/L (3.5-5.1); Sodium 142 mmol/L (136-145); Total Protein 6.9 g/dL (6.4-8.2); Triglyceride 215 mg/dL (<150)
[2024-10-15 14:58] LABS: 4/8 Ratio 1.45 (>=0.90); Absolute CD3 1504 Cells/uL (840-2669); Absolute CD8 620 Cells/uL (154-1097); CD3 65 % (56-84); CD4 38 % (31-64); CD8 27 % (9-39)
[2024-10-16 13:04] LABS: HIV 1 RNA Qualitative Detected Copys/mL (Undetected); HIV 1 RNA Quantitative <20 Copys/mL (Undetected)
== END 2024-10-13 16:25 | disposition home or self-care (01) ==
LOC: LBO 16:27
PROVIDERS: Physician Assistant Surgical; PCP Family Medicine; Visit Provider Family Medicine
DX: I10 Essential (primary) hypertension (principal); J45.909 Unspecified asthma, uncomplicated; B20 Human immunodeficiency virus [HIV] disease
CPT/HCPCS: 36415; 80053; 80061; 87536; 85025; 86359; 86360

== ENCOUNTER 2024-10-28 11:33 | Outpatient (CLI) | payer MEDICARE, OTHER, SELFPAY ==
--- NOTE | 2024-10-28 10:30 | DI.RAD_ITS ---
Exam(s) XR CHEST 2V PA LATERAL EXAM: XR CHEST 2V PA LATERAL CLINICAL HISTORY: cough and congestion R05.9. TECHNIQUE: 2D digital imaging was performed. COMPARISON: No exams were available for comparison FINDINGS: 2 views: There is sternotomy wires. There is an aortic valve TAVR Heart size is normal. The mediastinum is not widened. Right lung is clear. There is platelike atelectasis in left lung base. No confluent infiltrates nor pleural effusions. No pulmonary edema. IMPRESSION: Platelike atelectasis in the left lung base. No obvious confluent infiltrates. Sternotomy. TAVR. No pulmonary edema. DATA REPOSITORY: RADIATION DOSE DELIVERED:
== END 2024-10-28 11:53 ==
PROVIDERS: PCP Family Medicine; Visit Provider Family Medicine
DX: J98.11 Atelectasis (principal)
CPT/HCPCS: 71046

== ENCOUNTER 2024-11-18 13:10 | Outpatient (CLI) | payer MEDICARE, OTHER, SELFPAY ==
[2024-11-18 13:00] LABS: Abs Immature Grans 0.04 10^3/uL (0.0-0.06); Absolute Basophil Count 0.06 10^3/uL (0.0-0.2); Absolute Monocyte Count 0.52 10^3/uL (0.1-0.8); Absolute Neutrophil Count 5.66 10^3/uL (1.2-6.7); Basophils % 0.7 %; Eosinophils % 1.2 %; HGB 15.7 g/dL (13.5-17.5); Immature Grans % 0.5 %; MCH 33.1 pg (27.0-33.0); MCHC 34.1 % (32.0-36.0); MCV 97 fL (80-95); Monocytes % 6.4 %; Neutrophils % 70.2 %; Platelet Count 154 10^3/uL (130-400); RBC 4.74 10^6/uL (4.36-5.78); RDW 12.8 % (11.8-14.1); RDW-SD 45.6 fL; WBC 8.08 10^3/uL (4.4-10.8)
[2024-11-18 13:45] LABS: ALT 30 U/L (16-63); AST 22 U/L (15-37); Albumin 3.9 g/dL (3.4-5.0); Alkaline Phosphatase 93 U/L (46-116); Anion Gap 7.6 mmol/L (3-11); BUN 25 mg/dL (7-18); Bilirubin, Total 1.27 mg/dL (0.2-1.0); CO2 30.4 mmol/L (21.0-32.0); CREATININE 1.4 mg/dL (0.70-1.30); Calcium 9.6 mg/dL (8.5-10.1); Chloride 107 mmol/L (98-107); Estimated GFR 52.74 (mL/min/1.73m2); Glucose 144 mg/dL (74-106); Potassium 4.5 mmol/L (3.5-5.1); Sodium 145 mmol/L (136-145); Total Protein 7.3 g/dL (6.4-8.2)
[2024-11-19 17:06] LABS: 4/8 Ratio 1.67 (>=0.90); Absolute CD3 1354 Cells/uL (840-2669); Absolute CD8 504 Cells/uL (154-1097); CD3 70 % (56-84); CD4 43 % (31-64); CD8 26 % (9-39)
[2024-11-21 13:26] LABS: HIV 1 RNA Qualitative Detected Copys/mL (Undetected); HIV 1 RNA Quantitative <20 Copys/mL (Undetected)
== END 2024-11-18 13:11 | disposition home or self-care (01) ==
LOC: LBO 13:11
PROVIDERS: PCP Family Medicine; Visit Provider Nurse Practitioner Family
DX: B20 Human immunodeficiency virus [HIV] disease (principal)
CPT/HCPCS: 36415; 80053; 87536; 85025; 86359; 86360

== ENCOUNTER → 2025-01-14 14:16 | Outpatient (BNVA) | payer MEDICARE, OTHER, SELFPAY | PROVIDERS: PCP Family Medicine; Referring Provider Family Medicine; Visit Provider Physician Assistant Surgical | DX: G70.9 Myoneural disorder, unspecified (principal); J99 Respiratory disorders in diseases classified elsewhere; B20 Human immunodeficiency virus [HIV] disease; J45.909 Unspecified asthma, uncomplicated | CPT/HCPCS: 36415; 99214 ==

== ENCOUNTER 2025-01-14 18:58 | Outpatient (REF) | payer MEDICARE, OTHER, SELFPAY ==
[2025-01-14 17:26] LABS: Anion Gap 9.2 mmol/L (3-11); BUN 24 mg/dL (7-18); CO2 27.8 mmol/L (21.0-32.0); CREATININE 1.5 mg/dL (0.70-1.30); Calcium 9.2 mg/dL (8.5-10.1); Chloride 108 mmol/L (98-107); Estimated GFR 48.55 (mL/min/1.73m2); Glucose 111 mg/dL (74-106); NT-proBNP 1112 pg/mL (<300); Potassium 3.9 mmol/L (3.5-5.1); Sodium 145 mmol/L (136-145)
== END 2025-01-14 18:59 | disposition home or self-care (01) ==
LOC: LBN 18:58
PROVIDERS: PCP Family Medicine; Visit Provider Physician Assistant Surgical
DX: R79.89 Other specified abnormal findings of blood chemistry (principal); I50.9 Heart failure, unspecified
CPT/HCPCS: 80048; 83880

== ENCOUNTER 2025-01-15 15:45 | Outpatient (CLI) | payer MEDICARE, OTHER, SELFPAY ==
--- NOTE | 2025-01-15 13:15 | DI.RAD_ITS ---
Exam(s) XR CHEST 2V PA LATERAL EXAM: XR CHEST 2V PA LATERAL CLINICAL HISTORY: Heart failure, SOB, I50.9, R06.02; ? atelectasis vs CHF TECHNIQUE: 2D digital imaging was performed. Two views. COMPARISON: CR XR CHEST 2V PA LATERAL from 10/28/2024 FINDINGS: HEART: Enlarged. Status post TAVR and CABG. Aorta: Mildly tortuous. PULMONARY VASCULATURE: Normal. MEDIASTINUM: Unremarkable. LUNGS: Clear. PLEURAL SPACE: No pleural effusion or pneumothorax. BONE:Unremarkable for age. SOFT TISSUES: Unremarkable. IMPRESSION: No acute abnormality. DATA REPOSITORY: RADIATION DOSE DELIVERED:
[2025-01-15 14:22] LABS: ALT 25 U/L (16-63); AST 23 U/L (15-37); Albumin 3.8 g/dL (3.4-5.0); Alkaline Phosphatase 85 U/L (46-116); Anion Gap 9.1 mmol/L (3-11); BUN 24 mg/dL (7-18); Bilirubin, Total 1.9 mg/dL (0.2-1.0); CO2 27.9 mmol/L (21.0-32.0); CREATININE 1.8 mg/dL (0.70-1.30); Calcium 9.2 mg/dL (8.5-10.1); Chloride 109 mmol/L (98-107); Estimated GFR 39.01 (mL/min/1.73m2); Glucose 157 mg/dL (74-106); NT-proBNP 744 pg/mL (<300); Sodium 146 mmol/L (136-145); Total Protein 6.8 g/dL (6.4-8.2)
== END 2025-01-15 15:46 | disposition home or self-care (01) ==
LOC: LBO 15:46
PROVIDERS: PCP Family Medicine; Visit Provider Family Medicine
DX: I50.9 Heart failure, unspecified (principal); I10 Essential (primary) hypertension; R06.02 Shortness of breath
CPT/HCPCS: 36415; 80053; 71046; 83880

== ENCOUNTER 2025-02-04 12:34 | Outpatient (CLI) | payer MEDICARE, OTHER, SELFPAY ==
[2025-02-04 13:27] LABS: ALT 43 U/L (16-63); AST 36 U/L (15-37); Albumin 3.9 g/dL (3.4-5.0); Alkaline Phosphatase 97 U/L (46-116); Anion Gap 7.7 mmol/L (3-11); BUN 29 mg/dL (7-18); Bilirubin, Total 1.7 mg/dL (0.2-1.0); CO2 30.3 mmol/L (21.0-32.0); CREATININE 1.5 mg/dL (0.70-1.30); Calcium 9.3 mg/dL (8.5-10.1); Chloride 102 mmol/L (98-107); Estimated GFR 48.55 (mL/min/1.73m2); Glucose 151 mg/dL (74-106); Potassium 3.9 mmol/L (3.5-5.1); Sodium 140 mmol/L (136-145); Total Protein 7.3 g/dL (6.4-8.2)
== END 2025-02-04 12:35 | disposition home or self-care (01) ==
LOC: LBO 12:34
PROVIDERS: PCP Family Medicine; Visit Provider Family Medicine
DX: I10 Essential (primary) hypertension (principal)
CPT/HCPCS: 36415; 80053

== ENCOUNTER → 2025-05-07 13:13 | Outpatient (BNVA) | payer MEDICARE, OTHER, SELFPAY | PROVIDERS: PCP Family Medicine; Referring Provider Family Medicine; Visit Provider Physician Assistant Surgical | DX: G70.9 Myoneural disorder, unspecified (principal); J99 Respiratory disorders in diseases classified elsewhere; B20 Human immunodeficiency virus [HIV] disease; J45.909 Unspecified asthma, uncomplicated | CPT/HCPCS: 99214 ==